=== PATIENT | female | born 1955 | race Caucasian/White ===

== ENCOUNTER 2020-03-07 10:45 | Outpatient (CLI) | payer MEDICARE, MEDICAID, SELFPAY ==
--- NOTE | ~2020-03-07 | US_ITS ---
EXAMINATION: US renal BI EXAM DATE: 03/07/2020 11:52 INDICATION: Urinary retention. TECHNIQUE: Multiple grayscale and Doppler images of the kidneys were obtained (by a technologist who performed the scan) and subsequently reviewed. There is no prior study for comparison. FINDINGS: Right kidney: There is normal contour and echogenicity. It measures 9.9 x 4.6 x 5.0 centimeters. Th ere are no focal renal lesions identified. There is no hydronephrosis. Left kidney: There is normal contour and echogenicity. It measures 9.8 x 4.8 x 5.3 centimeters. The re are no focal renal lesions identified. There is no hydronephrosis. Bladder unremarkable. Prevoid bladder volume 199 mL, postvoid bladder volume 35 mL. IMPRESSION: 1. Sonographically unremarkable kidneys. 2. 35 mL postvoid residual. Reviewed, dictated and finalized at location B.
== END 2020-03-07 10:46 | disposition home or self-care (01) ==
PROVIDERS: PCP Physician Assistant; Visit Provider Internal Medicine Nephrology
DX: R33.9 Retention of urine, unspecified (principal)
CPT/HCPCS: 76775

== ENCOUNTER 2020-03-08 10:09 | Outpatient (CLI) | payer MEDICARE, MEDICAID, SELFPAY ==
[2020-03-08 10:53] LABS: Basophils Absolute Auto 0.1 K/mm3 (0.0-0.1); Basophils Percent Auto 0.9 % (0.2-1.2); Eosinophils Absolute Auto 0.2 K/mm3 (0-0.3); Eosinophils Percent Auto 2.9 % (0-4.4); Hematocrit 41.5 % (37.0-47.0); Hemoglobin 13.2 g/dL (12.0-15.0); Immature Granulocyte Absolute 0.01 K/mm3 (0.00-0.031); Immature Granulocyte Percent A 0.2 % (0-0.5); Lymphocytes Percent Auto 18.4 % (18.3-44.2); Mean Corpuscular HGB Conc 31.8 g/dl (32-36); Mean Corpuscular Hemoglobin 30.1 pg (26-34); Mean Corpuscular Volume 94.5 fl (80-100); Mean Platelet Volume 10.5 fl (7.4-10.4); Monocytes Absolute Auto 0.5 K/mm3 (0.1-0.6); Monocytes Percent Auto 9.9 % (2.6-8.5); Neutrophils Absolute Auto 3.7 K/mm3 (1.3-6.7); Neutrophils Percent Auto 67.7 % (45.5-73.1); Platelet Count Result 183 k/mm3 (150-375); Red Blood Count 4.39 M/mm3 (4.2-5.4); Red Cell Distribution Width 12.7 % (11.5-14.5); White Blood Count 5.4 K/mm3 (4.5-10.0)
[2020-03-08 11:06] LABS: Albumin Level 4.3 g/dL (3.5-5.1); Anion Gap 5 mmol/L (8-16); Blood Urea Nitrogen 26 mg/dL (7-17); Calcium 9.4 mg/dL (8.4-10.2); Carbon Dioxide 29 mmol/L (22-30); Chloride 107 mmol/L (98-107); Estimated Glomerular Filt Rate 45; Glucose 149 mg/dL (65-105); Phosphorus 3.7 mg/dL (2.5-4.5); Potassium 4.3 mmol/L (3.4-5.0); Sodium 141 mmol/L (137-145)
[2020-03-08 11:12] LABS: INR 1.1
[2020-03-08 11:23] LABS: Add Urine Microscopic? YES; Appearance Urine Clear (Clear); Bilirubin Urine Negative (Negative); Blood Urine Negative (Negative); Color Urine Yellow (Yellow); Glucose Urine UA Negative (Negative); Ketones Urine Negative (Negative); Leukocyte Esterase Ur 1+ LEU/UL (NEGATIVE); Nitrate Urine Negative (Negative); Protein Urine Negative (Negative); RBC Urine 0-2 /hpf (0-2); Specific Grav Ur 1.014 (1.001-1.035); Squamous Epithelial Cell Urine Many /hpf (Few); Transitional Epi Cells Urine Rare /hpf (None Seen); Urobilinogen Urine Negative mg/dL (<2.0)
[2020-03-08 11:50] LABS: Creatinine Urine 79.7 mg/dL
[2020-03-08 11:53] LABS: MALB Creatinine Ratio 30.1 mg/g (0-30)
[2020-03-09 18:26] LABS: Parathyroid Intact 119.8 pg/mL (7.5-53.5)
== END 2020-03-08 10:10 | disposition home or self-care (01) ==
PROVIDERS: PCP Physician Assistant; Visit Provider Internal Medicine Nephrology
DX: N18.9 Chronic kidney disease, unspecified (principal)
CPT/HCPCS: 36415; 80069; 81001; 82043; 83970; 85025; 85610

== ENCOUNTER 2020-09-26 10:39 | Outpatient (CLI) | payer MEDICARE, MEDICAID, SELFPAY ==
--- NOTE | ~2020-09-26 | XR_ITS ---
EXAMINATION: XR knee RT 3V DATE: 09/26/2020 12:04 INDICATION: Right knee swelling. TECHNIQUE: 3 views of right knee were obtained. COMPARISON: Right knee radiographs 04/20/2019 FINDINGS: Bone alignment is normal. No fracture. There is mild tricompartmental osteoarthritis charac terized by tiny marginal osteophytes. No knee joint effusion. IMPRESSION: 1. Mild right knee osteoarthritis. Reviewed, dictated and finalized at location A. 400 ANALYST
--- NOTE | ~2020-09-26 | XR_ITS ---
EXAMINATION: XR knee LT 3V DATE: 09/26/2020 12:04 INDICATION: Left knee swelling. TECHNIQUE: 3 views of left knee were obtained. COMPARISON: None. FINDINGS: Bone alignment is normal. No fracture. There is mild tricompartmental osteoarthritis charac terized by tiny marginal osteophytes. There is a small knee joint effusion. IMPRESSION: 1. Mild left knee osteoarthritis. 2. Small left knee joint effusion. Reviewed, dictated and finalized at location A. ESTATE VALUER
[2020-09-26 11:30] LABS: Basophils Percent Auto 0.3 % (0.2-1.2); Eosinophils Absolute Auto 1.6 K/mm3 (0-0.3); Eosinophils Percent Auto 13.3 % (0-4.4); Hematocrit 40.3 % (37.0-47.0); Hemoglobin 12.8 g/dL (12.0-15.0); Immature Granulocyte Absolute 0.06 K/mm3 (0.00-0.031); Immature Granulocyte Percent A 0.5 % (0-0.5); Lymphocytes Absolute Auto 1.65 K/mm3 (0.9-3.2); Mean Corpuscular HGB Conc 31.8 g/dl (32-36); Mean Corpuscular Hemoglobin 30.8 pg (26-34); Mean Corpuscular Volume 96.9 fl (80-100); Mean Platelet Volume 11.1 fl (7.4-10.4); Monocytes Percent Auto 8.7 % (2.6-8.5); Neutrophils Absolute Auto 7.4 K/mm3 (1.3-6.7); Neutrophils Percent Auto 63.2 % (45.5-73.1); Platelet Count Result 162 k/mm3 (150-375); Red Blood Count 4.16 M/mm3 (4.2-5.4); Red Cell Distribution Width 13.2 % (11.5-14.5); White Blood Count 11.8 K/mm3 (4.5-10.0)
[2020-09-26 11:44] LABS: Albumin Level 3.9 g/dL (3.5-5.1); Anion Gap 6 mmol/L (8-16); Blood Urea Nitrogen 16 mg/dL (7-17); Calcium 9.5 mg/dL (8.4-10.2); Carbon Dioxide 28 mmol/L (22-30); Chloride 109 mmol/L (98-107); Estimated Glomerular Filt Rate 41; Glucose 198 mg/dL (65-105); Phosphorus 3.5 mg/dL (2.5-4.5); Potassium 3.9 mmol/L (3.4-5.0); Sodium 143 mmol/L (137-145)
[2020-09-26 13:02] LABS: Creatinine Urine 499.1 mg/dL; MALB Creatinine Ratio 176.9 mg/g (0-30)
[2020-09-26 16:03] LABS: Appearance Urine Clear (Clear); Bilirubin Urine 2+ (Negative); Color Urine Yellow (Yellow); Glucose Urine UA Negative (Negative); Ketones Urine 1+ mg/dL (Negative); Leukocyte Esterase Ur 1+ LEU/UL (NEGATIVE); Nitrate Urine Negative (Negative); Protein Urine 3+ mg/dL (Negative); Specific Grav Ur >= 1.030 (1.001-1.035); Urobilinogen Urine 0.2 mg/dL (<2.0); pH Urine 5.5 (5.0-9.0)
[2020-09-26 16:10] LABS: Add Urine Microscopic? YES; Blood Urine Trace (Negative)
== END 2020-09-26 10:40 | disposition home or self-care (01) ==
PROVIDERS: PCP Physician Assistant; Visit Provider Internal Medicine Nephrology
DX: N25.81 Secondary hyperparathyroidism of renal origin (principal); I12.9 Hypertensive chronic kidney disease with stage 1 through stage 4 chronic kidney disease, or unspecified chronic kidney disease; N18.9 Chronic kidney disease, unspecified; M17.0 Bilateral primary osteoarthritis of knee; M25.462 Effusion, left knee
CPT/HCPCS: 36415; 73562; 80069; 81001; 82043; 85025

== ENCOUNTER 2021-08-05 09:59 | Outpatient (CLI) | payer OTHER, SELFPAY ==
[2021-08-05 10:45] LABS: Albumin Level 4.2 g/dL (3.5-5.1); Anion Gap 8 mmol/L (8-16); Blood Urea Nitrogen 16 mg/dL (7-17); Calcium 9.5 mg/dL (8.4-10.2); Carbon Dioxide 26 mmol/L (22-30); Chloride 106 mmol/L (98-107); Estimated Glomerular Filt Rate 45; Glucose 179 mg/dL (65-110); Phosphorus 3.5 mg/dL (2.5-4.5); Sodium 140 mmol/L (137-145)
[2021-08-05 10:50] LABS: Basophils Percent Auto 0.7 % (0.2-1.2); Eosinophils Absolute Auto 0.4 K/mm3 (0-0.3); Eosinophils Percent Auto 6.9 % (0-4.4); Hematocrit 44.7 % (37.0-47.0); Immature Granulocyte Absolute 0.01 K/mm3 (0.00-0.031); Immature Granulocyte Percent A 0.2 % (0-0.5); Lymphocytes Absolute Auto 1.17 K/mm3 (0.9-3.2); Lymphocytes Percent Auto 19.3 % (18.3-44.2); Mean Corpuscular HGB Conc 31.3 g/dl (32-36); Mean Corpuscular Hemoglobin 30.3 pg (26-34); Mean Corpuscular Volume 96.8 fl (80-100); Mean Platelet Volume 11.9 fl (7.4-10.4); Monocytes Absolute Auto 0.7 K/mm3 (0.1-0.6); Monocytes Percent Auto 11.1 % (2.6-8.5); Neutrophils Absolute Auto 3.7 K/mm3 (1.3-6.7); Neutrophils Percent Auto 61.8 % (45.5-73.1); Platelet Count Result 163 k/mm3 (150-375); Red Blood Count 4.62 M/mm3 (4.2-5.4); White Blood Count 6.1 K/mm3 (4.5-10.0)
== END 2021-08-05 10:00 | disposition home or self-care (01) ==
PROVIDERS: PCP Physician Assistant; Visit Provider Internal Medicine Nephrology
DX: N25.81 Secondary hyperparathyroidism of renal origin (principal); I12.9 Hypertensive chronic kidney disease with stage 1 through stage 4 chronic kidney disease, or unspecified chronic kidney disease; N18.9 Chronic kidney disease, unspecified; N39.0 Urinary tract infection, site not specified
CPT/HCPCS: 36415; 80069; 85025

== ENCOUNTER 2021-08-06 10:21 | Outpatient (CLI) | payer OTHER, SELFPAY ==
[2021-08-06 11:03] LABS: Add Urine Microscopic? YES; Appearance Urine Clear (Clear); Bilirubin Urine Negative (Negative); Blood Urine Negative (Negative); Color Urine Yellow (Yellow); Glucose Urine UA Negative (Negative); Ketones Urine Negative (Negative); Leukocyte Esterase Ur Negative LEU/UL (NEGATIVE); Nitrate Urine Negative (Negative); Protein Urine Negative (Negative); RBC Urine 0-2 /hpf (0-2); Specific Grav Ur 1.013 (1.001-1.035); WBC Urine 0-3 /hpf (0-3)
[2021-08-06 11:59] LABS: Creatinine Urine 81.1 mg/dL
[2021-08-06 12:04] LABS: MALB Creatinine Ratio 16.4 mg/g (0-30); Microalbumin Urine Random 13.3 mg/L (0-16.7)
== END 2021-08-06 10:22 | disposition home or self-care (01) ==
PROVIDERS: PCP Physician Assistant; Visit Provider Internal Medicine Nephrology
DX: I12.9 Hypertensive chronic kidney disease with stage 1 through stage 4 chronic kidney disease, or unspecified chronic kidney disease (principal); N39.0 Urinary tract infection, site not specified; N18.9 Chronic kidney disease, unspecified; N25.81 Secondary hyperparathyroidism of renal origin
CPT/HCPCS: 81001; 82043; 87086

== ENCOUNTER 2022-07-07 12:31 | Emergency (ER) | payer OTHER, SELFPAY ==
--- NOTE | ~2022-07-07 | CT_ITS ---
EXAMINATION: CT brain wo con DATE: 07/07/2022 13:24 INDICATION: Head injury. TECHNIQUE: Computed tomography (CT) of the head was performed without intravenous contrast. The mA wa s adjusted according to patient size. Iterative reconstruction technique was employed. The dose-lengt h product was 605.33 mGy-cm. COMPARISON: Head CT 08/27/2017 FINDINGS: There is an old infarct in right temporal parietal region. There is an old lacunar infarct in right basal ganglia. There is chronic cystic encephalomalacia in the left frontal lobe deep white matter. There is no intracranial hemorrhage, acute infarction, or abnormal intracranial mass lesion. There are scattered areas of low attenuation in the cerebral white matter. There is ex vacuo dilatati on of trigone of right lateral ventricle. The orbits are normal. There is mild mucosal thickening in the ethmoid sinuses. The mastoid air cells are normal. IMPRESSION: 1. Old infarcts involving the right temporal parietal region, left frontal lobe deep white matter, an d right basal ganglia. 2. Mild nonspecific cerebral white matter disease, which likely represents chronic small vessel ische avis disease. Reviewed, dictated and finalized at location A. OR SUPPLY CHAIN ANALYST IMPRESSION: 1. Old infarcts involving the right temporal parietal region, left frontal lobe deep white matter, and right basal ganglia. 2. Mild nonspecific cerebral white matter disease, which likely represents book store associate jamie small vessel ischemic disease.
--- NOTE | ~2022-07-07 | XR_ITS ---
EXAMINATION: XR humerus LT DATE: 07/07/2022 13:35 INDICATION: Left shoulder pain. Fall. TECHNIQUE: 2 views of left humerus were obtained. COMPARISON: None. FINDINGS: There is a comminuted fracture of proximal diaphysis of left humerus. The main distal fract ure fragment demonstrates one shaft width posterior displacement, 13 degrees posterior angulation, an d one half shaft width radial displacement. There is mild glenohumeral joint osteoarthritis. The acro mioclavicular joint is normal. IMPRESSION: 1. Comminuted fracture of proximal left humeral diaphysis. Reviewed, dictated and finalized at location A. TRY SLAUGHTERER
--- NOTE | ~2022-07-07 | CT_ITS ---
EXAMINATION: CT cervical spine wo con DATE: 07/07/2022 13:25 INDICATION: Fall with head injury TECHNIQUE: Computed tomography (CT) of the cervical spine was performed without intravenous contrast. Automated exposure control and iterative reconstruction technique were employed. The dose-length pro duct was 552.16 mGy-cm. COMPARISON: 10/12/2012 FINDINGS: Straightening of the normal cervical lordosis. 2 mm anterolisthesis C3 on C4. One-2 mm retrolisthesis C4 on C5. Vertebral body heights are normal. No fracture. Mild to moderate disc height loss at C4-C5 , C5-C6 and C6-C7. Atherosclerotic calcification at the bilateral carotid bulbs. Cervical soft tissue s are otherwise unremarkable. Visualized airway and apices of the lungs are clear. The following disc levels are specifically discussed: C2-C3: The bilateral uncovertebral joints are fused with mild hypertrophic changes. There is also fus ion of the bilateral facet joints. There is no neural foraminal stenosis. There is no central canal s tenosis. C3-C4: There is moderate bilateral uncovertebral joint osteoarthritis. There is mild to moderate left and severe right facet joint osteoarthritis. There is mild right and minimal left neural foraminal s tenosis. There is minimal central canal stenosis. C4-C5: Posterior endplate osteophytes and severe bilateral uncovertebral joint osteoarthritis. There is mild left and moderate right facet joint osteoarthritis. There is mild right and moderate left aburee ral foraminal stenosis. There is mild central canal stenosis. C5-C6: Posterior endplate osteophytes and severe bilateral uncovertebral joint osteoarthritis. There is mild to moderate bilateral facet joint osteoarthritis. There is moderate bilateral neural foramina l stenosis. There is mild central canal stenosis. C6-C7: There is severe left and mild right uncovertebral joint osteoarthritis. There is moderate righ t and severe left facet joint osteoarthritis. There is mild left neural foraminal stenosis. There is no central canal stenosis. C7-T1: There is no uncovertebral joint osteoarthritis. There is severe bilateral facet joint osteoart hritis. There is mild right and mild to moderate left neural foraminal stenosis. There is no central canal stenosis. IMPRESSION: 1. Moderate to severe cervical spondylosis. No acute osseous abnormality. Reviewed, dictated and finalized at location B. TER BACKER
[2022-07-07 12:37] VITALS: BP 137/83; PULSE 101; RESP 18; TEMP 36.5; O2SAT 98
[2022-07-07 12:52] VITALS: PULSE 112; RESP 19
[2022-07-07 13:01] VITALS: BP 156/109
--- NOTE | 2022-07-07 13:18 | ED.FALL ---
HPI - Fall General Chief Complaint: Fall Stated Complaint: left arm pain after fall Time Seen by Provider: 07/07/22 12:57 History of Present Illness HPI Narrative: Patient is a 67-year-old female here via EMS for evaluation of left shoulder pain after a fall today. Patient states that she was using her walker around the parking lot when she slipped and fell, striking her head against a car and getting on her left shoulder. Required assistance from EMS to get up. Complaining of severe arm pain and presents in left hand numbness and tingling. She does take a blood thinner medicine. She was in her usual health prior to this fall. No hip pain, leg pain, injuries to abdomen or chest. Related Data Allergies Allergy/AdvReac Type Severity Reaction Status Date / Time No Known Allergies Allergy Unknown Unverified 04/20/19 17:42 Review of Systems Review of Systems: Gen.: Denies fevers or chills Eyes: Denies eye pain or visual change ENT: Denies congestion Respiratory: Denies shortness of breath or cough CV: Denies chest pain or palpitations GI: Denies abdominal pain nausea, emesis or diarrhea denies burning, urgency, frequency or hematuria Musculoskeletal: Reports left shoulder and arm pain. Neuro: Denies numbness, tingling, weakness or focal weakness Skin: Denies rash Except as documented, all other systems reviewed and negative Exam Narrative: APPEARANCE: Well appearing, no pain in distress, well-nourished. Head: Normocephalic and atraumatic. EYES: PERRLA/EOMI, conjunctivae clear NOSE: No nasal drainage EARS: External ear normal in appearance THROAT: Oropharynx is clear. Mucous membranes are moist. NECK: Supple. No adenopathy, no masses. RESPIRATORY: Airway patent, respirations nonlabored. Clear to auscultation bilaterally, no rales, rhonchi, wheezing. CARDIOVASCULAR: 2+ radial pulses bilaterally. Regular rate and rhythm without murmurs, rubs, or gallops. ABDOMINAL: Normoactive bowel sounds. Soft, nontender, nondistended. No rebound tenderness or guarding. MUSCULOSKELETAL: Patient has tenderness to palpation over the left humeral head and left olecranon. Deformity noted to left shoulder. Extremities are warm and well-perfused. NEURO: Normal speech. No focal neurologic deficits. SKIN: Skin is warm and dry. No rashes. PSYCHIATRIC: Angry mood Course Vital Signs Vital signs: Vital Signs Temperature 97.7 F 07/07/22 12:37 Pulse Rate 101 H 07/07/22 12:37 Respiratory Rate 18 07/07/22 12:37 Blood Pressure 137/83 07/07/22 12:37 Pulse Oximetry 98 07/07/22 12:37 Oxygen Delivery Room Air 07/07/22 12:37 Temperature 97.7 F 07/07/22 12:37 Pulse Rate 112 H 07/07/22 12:52 Respiratory Rate 19 07/07/22 12:52 Blood Pressure 156/109 H 07/07/22 13:01 Pulse Oximetry 98 07/07/22 12:37 Oxygen Delivery Room Air 07/07/22 12:37 MDM - Fall MDM Narrative Medical decision making narrative: 67-year-old female here for evaluation after mechanical fall in the parking lot earlier today, complaining of shoulder pain. She did strike her head in the fall, she is on blood thinners and CT brain and C-spine are without acute disease. She does have an evidence of a proximal comminuted humerus fracture with 100% displacement. Spoke with Dr. Trinh, orthopedist, who recommends transfer given severity of fracture. Patient ambulates with a walker and will likely not do well with splint as an outpatient. She was transferred to [facility], accepting physician is Dr. Holloway. Discharge Plan Discharge Clinical Impression: Fracture of proximal end of left humerus Patient Disposition: Acute Care Hospital Condition: Stable Follow-up/Referrals: Bao,ZURI Marino [Primary Care Provider] -
[2022-07-07] MEDS: MORPHINE SULFATE (*CRX) 4 MG/ML INJ IV PUSH (14:02)
--- NOTE | 2022-07-07 15:26 | PC.NURSE ---
Splint applied to left arm. Pt maintain circulation with splint applied
== END 2022-07-07 15:27 | disposition short-term general hospital (02) ==
PROVIDERS: Emergency Provider Physician Assistant; PCP Physician Assistant
DX: S49.092A Other physeal fracture of upper end of humerus, left arm, initial encounter for closed fracture (principal); M47.812 Spondylosis without myelopathy or radiculopathy, cervical region; W01.198A Fall on same level from slipping, tripping and stumbling with subsequent striking against other object, initial encounter
CPT/HCPCS: 29105; 70450; 72125; 73060; 96374; 99285; A4565; J2270

== ENCOUNTER 2024-04-25 09:01 | Emergency (ER) | payer MEDICARE, MEDICAID, SELFPAY ==
--- NOTE | ~2024-04-25 | CT_ITS ---
CT head without contrast Indication: Seizure COMPARISON: 07/07/2022 Technique: Serial scans were obtained through the brain without the administration of contrast. Dose reduction technique was used on this scan by utilizing automated exposure control and iterative recon struction technique. The dose-length product (DLP) was 681.00 mGy-cm. Findings: There is no evidence of intracranial hemorrhage, mass lesion, or acute infarct. Stable chrome plater jamie encephalomalacia at the right temporoparietal region. The ventricles and subarachnoid spaces are dilated, consistent with mild atrophy. Low attenuation regions are seen within the periventricular w roger matter bilaterally, likely representing changes from chronic microvascular ischemic disease. The re is no evidence of edema, mass effect or midline shift. The visualized paranasal sinuses and mast oid air cells are clear. Impression: No intracranial hemorrhage, mass, or acute infarct. Chronic encephalomalacia right temporoparietal region, unchanged. Atrophy and chronic white matter changes, as above. Reviewed, dictated and finalized at location . Impression: No intracranial hemorrhage, mass, or acute infarct. Chronic encephalomalacia right temporoparietal region, unchanged. Atrophy and chronic white matter changes, as above.
[2024-04-25 09:08] VITALS: PULSE 78; O2SAT 100
[2024-04-25 09:14] VITALS: BP 156/89; PULSE 77; RESP 16; TEMP 36.8; O2SAT 100
[2024-04-25 09:25] LABS: Glucose Point of Care 176 mg/dl (65-105)
[2024-04-25 09:30] LABS: Basophils Percent Auto 0.7 % (0.2-1.2); Eosinophils Absolute Auto 0.1 K/mm3 (0-0.3); Eosinophils Percent Auto 1.3 % (0-4.4); Hematocrit 44.3 % (37.0-47.0); Immature Granulocyte Absolute 0.01 K/mm3 (0.00-0.031); Immature Granulocyte Percent A 0.2 % (0-0.5); Lymphocytes Absolute Auto 1.02 K/mm3 (0.9-3.2); Lymphocytes Percent Auto 16.8 % (18.3-44.2); Mean Corpuscular HGB Conc 31.6 g/dl (32-36); Mean Corpuscular Hemoglobin 30.4 pg (26-34); Mean Corpuscular Volume 96.1 fl (80-100); Mean Platelet Volume 11.3 fl (7.4-10.4); Monocytes Absolute Auto 0.5 K/mm3 (0.1-0.6); Monocytes Percent Auto 8.7 % (2.6-8.5); Neutrophils Absolute Auto 4.4 K/mm3 (1.3-6.7); Neutrophils Percent Auto 72.3 % (45.5-73.1); Platelet Count Result 223 k/mm3 (150-375); Red Blood Count 4.61 M/mm3 (4.2-5.4); Red Cell Distribution Width 13.2 % (11.5-14.5); White Blood Count 6.1 K/mm3 (4.5-10.0)
[2024-04-25 09:42] LABS: Lactic Acid Reflex 1.1 mmol/L (0.7-2.0)
[2024-04-25 09:43] LABS: Alanine Aminotransferase 25 U/L (6-35); Albumin Level 4.6 g/dL (3.5-5.1); Alkaline Phosphatase 62 U/L (38-126); Anion Gap 9 mmol/L (4-12); Aspartate Amino Transferase 44 U/L (14-36); Bilirubin,Total 1.1 mg/dL (0.2-1.3); Blood Urea Nitrogen 20 mg/dL (7-17); Calcium 9.9 mg/dL (8.4-10.2); Carbon Dioxide 25 mmol/L (22-30); Chloride 110 mmol/L (98-107); Estimated CRCL calculation 45 ml/min; Estimated Glomerular Filt Rate 44; Glucose 183 mg/dL (65-110); Potassium 3.6 mmol/L (3.4-5.0); Sodium 144 mmol/L (137-145)
[2024-04-25 09:45] LABS: Prothrombin Time 13.5 Seconds (11.1-14.7)
[2024-04-25 09:46] LABS: Partial Thromboplastin Time 23.9 Seconds (22.3-36.8)
[2024-04-25 10:00] LABS: Add Urine Microscopic? YES; Appearance Urine Clear (Clear); Bacteria Urine None Seen /hpf; Bilirubin Urine Negative (Negative); Blood Urine Negative (Negative); Color Urine Yellow (Yellow); Glucose Urine UA 3+ mg/dL (Negative); Ketones Urine Negative (Negative); Leukocyte Esterase Ur Trace LEU/UL (Negative); Nitrate Urine Negative (Negative); Non Pathogenic Casts 0-2; Protein Urine Negative (Negative); RBC Urine 0-2 /hpf (0-2); Specific Grav Ur 1.026 (1.001-1.035); Squamous Epithelial Cell Urine None Seen /hpf (Few); pH Urine 6.5 (5.0-9.0)
[2024-04-25 10:06] LABS: Influenza A QL RT-PCR Negative (Negative); Influenza B QL RT-PCR Negative (Negative); RSV RNA, RT-PCR Negative (Negative); SARS-CoV-2 RNA PCR Negative (Negative)
--- NOTE | 2024-04-25 10:25 | ECG_ITS ---
Test Date: 2024-04-25 11:22:12 Measurements Intervals [place] Rate: 77 P: 72 GA: 241 QRS: -19 QRSD: 111 T: -2 QT: 392 QTc: 446 Interpretive Statements SINUS RHYTHM WITH FIRST DEGREE AV BLOCK WITH OCCASIONAL SUPRAVENTRICULAR PREMATURE COMPLEXES POSSIBLE ANTERIOR MYOCARDIAL INFARCTION , OF INDETERMINATE AGE [30 ms Q WAVE IN V3/V4, OR R < 0.2 mV IN V4] ABNORMAL ECG No previous ECG available for comparison Electronically Signed On 04-25-2024 14:42:00 CDT by Jefry Perez M.D.
--- NOTE | 2024-04-25 10:32 | ED.GENADULT ---
HPI - General Adult General Chief complaint: Seizure Stated complaint: seizure Time Seen by Provider: 04/25/24 09:07 History of Present Illness HPI narrative: 69-year-old female presenting to the emergency department for evaluation after having an episode of partial seizures. Patient does have a history of seizure and does have follow-up with Neurology. Patient has been having frequent urinary tract infections with increased confusion. Patient had follow-up with her neurologist today in [facility] and they felt some of the confusion was also due to Topamax intoxication. They are stopping the Topamax but this has not been stopped yet. While patient was riding back from the neurology office patient began having a partial seizure of the right hand. Symptoms lasted approximately 5 minutes and did resolve completely. Upon arrival back to the emergency department patient is at her baseline. Patient denies any pain or injury in is at her typical baseline. Related Data Allergies Allergy/AdvReac Type Severity Reaction Status Date / Time No Known Allergies Allergy Unknown Unverified 04/20/19 17:42 Review of Systems Review of Systems: All systems reviewed & are unremarkable except as noted in HPI and below PMFSH Social History Social History Smoking status: Never smoker Second hand tobacco smoke exposure: No Alcohol intake: unknown Substance use: unknown Spiritual care concerns: No Exam Narrative: APPEARANCE: Well appearing, no pain, no distress, well-nourished. HEAD: normocephalic, atraumatic. EYES: PERRLA/EOMI, conjunctivae clear. NOSE: Normal no drainage EARS:TMS clear with good light reflex. THROAT: Pharynx clear, no exudate. NECK: Supple. No adenopathy, no masses. RESPIRATORY: Airway patent, respirations nonlabored. Clear to auscultation bilaterally, no rales, rhonchi, wheezing. CARDIOVASCULAR: Regular rate and rhythm without murmurs rubs or gallops. ABDOMINAL: Soft, nontender, nondistended, normal bowel sounds MUSCULOSKELETAL: Moves all extremities. Strength/ROM intact, No edema, No calf tenderness. NEURO: Alert. Cranial nerves II through XII intact. Good gait. Good coordination SKIN: Warm, dry. Normal Color Course Course Emergency Course: Patient was at her baseline was discharged home while being treated for urinary tract infection. Vital Signs Vital signs: Vital Signs Pulse Rate 78 04/25/24 09:08 Pulse Oximetry 100 04/25/24 09:08 Oxygen Delivery Room Air 04/25/24 09:08 Temperature 98.2 F 04/25/24 09:14 Pulse Rate 81 04/25/24 12:11 Respiratory Rate 20 04/25/24 12:11 Blood Pressure 148/65 H 04/25/24 12:11 Pulse Oximetry 97 04/25/24 12:11 Oxygen Delivery Room Air 04/25/24 09:14 Medical Decision Making MDM Narrative Medical decision making narrative: 69-year-old female presenting to the emergency department for evaluation for partial seizure. Head CT was negative for acute intracranial abnormality. It was concerning for infection. Patient is afebrile with no leukocytosis and hemoglobin of 14. Creatinine is similar to her baseline of 1.2. No elevation of lactic acid. Urine culture was ordered and patient was treated with IV antibiotics for the urinary tract infection. Patient family are comfortable the plan for being discharged home. They will have close follow-up with their neurologist. They are going to confer about stopping the Topamax after having the recent breakthrough seizure. Differential Diagnosis Differential Diagnosis: Subdural hematoma, subarachnoid hemorrhage, seizure, partial seizure Vital Signs Vital Signs: Vital Signs Pulse Rate 78 04/25/24 09:08 Pulse Oximetry 100 04/25/24 09:08 Oxygen Delivery Room Air 04/25/24 09:08 Temperature 98.2 F 04/25/24 09:14 Pulse Rate 81 04/25/24 12:11 Respiratory Rate 20 04/25/24 12:11 Blood Pressure 148/65 H 04/25/24 12:11 Pulse
[2024-04-25 12:11] VITALS: BP 148/65; PULSE 81; RESP 20; O2SAT 97
== END 2024-04-25 12:13 ==
PROVIDERS: Emergency Provider Emergency Medicine; PCP Physician Assistant
DX: G40.909 Epilepsy, unspecified, not intractable, without status epilepticus (principal); N39.0 Urinary tract infection, site not specified; Z20.822 Contact with and (suspected) exposure to COVID-19; G93.89 Other specified disorders of brain; I44.0 Atrioventricular block, first degree; I49.1 Atrial premature depolarization; R94.31 Abnormal electrocardiogram [ECG] [EKG]
CPT/HCPCS: 36415; 70450; 80053; 81001; 82948; 83605; 85025; 85610; 85730; 87086; 87637; 93005; 96365; 99284; J0696

== ENCOUNTER 2024-05-02 14:22 | Inpatient (IN) | payer MEDICARE, MEDICAID, SELFPAY ==
[2024-05-02 14:20] VITALS: BP 166/81; PULSE 75; RESP 19; TEMP 36.4; O2SAT 100
--- NOTE | 2024-05-02 14:27 | ED.GENADULT ---
HPI - General Adult General Chief complaint: Unspecified Stated complaint: eval for placement Time Seen by Provider: 05/02/24 14:27 Source: patient and EMS Mode of arrival: EMS Limitations: dementia History of Present Illness HPI narrative: This is a 69-year-old female patient past medical history includes diabetes treatment with both insulin and noninsulin anti diabetic medications, hyperlipidemia, metabolic encephalopathy, seizures, CKD, CVA history, history of anemia and hypertension. Patient had prior admission to [facility] where she was discharged to [facility] for SNF and was discharged home with home health 3 days ago. Patient reportedly non compliant with her medications and fighting with the daughter regarding taking her insulin. The daughter called 911 and told EMS that she needed to go into a care home that the daughter would not answer the phone or come pick her up from the hospital. Patient denies any current complaints. Patient notes that she is on an antibiotic for a UTI. Patient also notes that several of her medications were recently changed but she acknowledges that she needs assistance with her medications and is unable to administer them safely to herself. Related Data Allergies Allergy/AdvReac Type Severity Reaction Status Date / Time No Known Allergies Allergy Unknown Unverified 04/20/19 17:42 Review of Systems Review of Systems: Denies fever chills nausea vomiting constipation diarrhea chest pain shortness a breath or any other concerning symptoms at this time All systems reviewed & are unremarkable except as noted in HPI and below PMFSH Social History Social History Smoking status: Never smoker Second hand tobacco smoke exposure: No Alcohol intake: unknown Substance use: unknown Spiritual care concerns: No Exam Narrative: GENERAL: Awake, alert, no acute distress HEAD: Normocephalic, atraumatic. ENT:? Mucous membranes dry. CHEST: Clear to auscultation.? No respiratory distress. HEART: Regular rate and rhythm. ? Normal peripheral pulses. ABDOMEN: Soft, nontender, nondistended. EXTREMITIES: Normal range of motion. No peripheral edema. SKIN: Warm dry normal color NEURO: Alert and oriented but signs of chronic dementia PSYCH: Normal mood and affect Course Reevaluation(s) Reevaluation #1: On lab re-evaluation patient has LASHONDA GFR down to 37 creatinine 1.4. Also glucose is elevated. Ordered 1 L normal saline bolus then 150 mL/hr for 1 bag for a total of 2 L over 8 hours. Case management notified need for care home placement and is evaluating. Date: 05/02/24 Time: 15:12 Reevaluation #2: All labs back, UA only shows glucose in urine which is appropriate given diabetes and Januvia/Farxiga prescription. She is getting IV fluids and case management reaching out to prior assisted living facility where patient was before to see if they can accept her back direct from ER. Date: 05/02/24 Time: 15:47 Reevaluation #3: Patient desiring to go to assisted living or care home. Case management has been working on this but unable to get patient placed tonight. Case management requesting observation admit to continue process tomorrow. Will contact Hospitalist resolution expert. Date: 05/02/24 Time: 16:50 Vital Signs Vital signs: Vital Signs Temperature 36.4 C 05/02/24 14:20 Pulse Rate 75 05/02/24 14:20 Respiratory Rate 19 05/02/24 14:20 Blood Pressure 166/81 H 05/02/24 14:20 Pulse Oximetry 100 05/02/24 14:20 Oxygen Delivery Room Air 05/02/24 14:20 Temperature 36.4 C 05/02/24 14:20 Pulse Rate 65 05/02/24 17:12 Respiratory Rate 12 05/02/24 17:12 Blood Pressure 152/78 H 05/02/24 17:12 Pulse Oximetry 97 05/02/24 17:12 Oxygen Delivery Room Air 05/02/24 14:20 Medical Decision Making MDM Narrative Medical decision making narrative: Patient sent to ER via EMS from
[2024-05-02 14:47] VITALS: PULSE 70
[2024-05-02 14:47] LABS: Glucose Point of Care 213 mg/dl (65-105)
[2024-05-02 14:58] LABS: Basophils Absolute Auto 0.1 K/mm3 (0.0-0.1); Basophils Percent Auto 0.8 % (0.2-1.2); Eosinophils Absolute Auto 0.1 K/mm3 (0-0.3); Eosinophils Percent Auto 1.6 % (0-4.4); Hematocrit 44.3 % (37.0-47.0); Hemoglobin 14.2 g/dL (12.0-15.0); Immature Granulocyte Absolute 0.02 K/mm3 (0.00-0.031); Immature Granulocyte Percent A 0.3 % (0-0.5); Lymphocytes Absolute Auto 1.03 K/mm3 (0.9-3.2); Lymphocytes Percent Auto 16.1 % (18.3-44.2); Mean Corpuscular HGB Conc 32.1 g/dl (32-36); Mean Corpuscular Hemoglobin 30.7 pg (26-34); Mean Corpuscular Volume 95.7 fl (80-100); Mean Platelet Volume 11.5 fl (7.4-10.4); Monocytes Absolute Auto 0.7 K/mm3 (0.1-0.6); Neutrophils Absolute Auto 4.5 K/mm3 (1.3-6.7); Neutrophils Percent Auto 70.2 % (45.5-73.1); Platelet Count Result 204 k/mm3 (150-375); Red Blood Count 4.63 M/mm3 (4.2-5.4); Red Cell Distribution Width 13.2 % (11.5-14.5); White Blood Count 6.4 K/mm3 (4.5-10.0)
[2024-05-02 15:07] LABS: Alanine Aminotransferase 26 U/L (6-35); Albumin Level 4.1 g/dL (3.5-5.1); Alkaline Phosphatase 56 U/L (38-126); Anion Gap 7 mmol/L (4-12); Aspartate Amino Transferase 39 U/L (14-36); Bilirubin,Total 0.8 mg/dL (0.2-1.3); Blood Urea Nitrogen 28 mg/dL (7-17); Calcium 10.2 mg/dL (8.4-10.2); Carbon Dioxide 26 mmol/L (22-30); Chloride 106 mmol/L (98-107); Estimated CRCL calculation 38 ml/min; Estimated Glomerular Filt Rate 37; Glucose 226 mg/dL (65-110); Potassium 3.9 mmol/L (3.4-5.0); Sodium 139 mmol/L (137-145)
[2024-05-02 15:09] LABS: Ammonia < 9 umol/L (9-30)
[2024-05-02] MEDS: SODIUM CHLORIDE 0.9% IV 1,000 ML 999 ML IV CONT (15:23)
[2024-05-02 15:24] VITALS: BP 141/70; PULSE 63; RESP 11; O2SAT 100
[2024-05-02 15:33] LABS: Add Urine Microscopic? NO; Appearance Urine Clear (Clear); Bilirubin Urine Negative (Negative); Blood Urine Negative (Negative); Color Urine Yellow (Yellow); Glucose Urine UA 3+ mg/dL (Negative); Ketones Urine Negative (Negative); Leukocyte Esterase Ur Negative LEU/UL (Negative); Nitrate Urine Negative (Negative); Protein Urine Negative (Negative); Specific Grav Ur 1.026 (1.001-1.035); Urobilinogen Urine 0.2 mg/dL (<2.0); pH Urine 5.5 (5.0-9.0)
--- NOTE | 2024-05-02 16:54 | PC.NURSE ---
low sodium dinner tray ordered
[2024-05-02] MEDS: SODIUM CHLORIDE 0.9% IV 1,000 ML 150 ML IV CONT (17:11)
[2024-05-02 17:12] VITALS: BP 152/78; PULSE 65; RESP 12; O2SAT 97
--- NOTE | 2024-05-02 17:54 | ED.GENADULT ---
HPI - General Adult General Chief complaint: Unspecified Stated complaint: eval for placement Time Seen by Provider: 05/02/24 14:27 Source: patient and EMS Mode of arrival: EMS Limitations: dementia History of Present Illness HPI narrative: This is a 69-year-old female patient with past medical history of diabetes seizures recent left hand injury was discharged from [facility] on Thursday, 3 days ago to home with home health living with her daughter. EMS brought patient to the emergency department this morning with complaints of combative behavior arguing and fighting against the daughter when trying to give her medications. Patient reports she has had some recent medication changes and cannot manage her own medications. She reports that she is on an antibiotic for UTI. Related Data Allergies Allergy/AdvReac Type Severity Reaction Status Date / Time No Known Allergies Allergy Unknown Unverified 04/20/19 17:42 Review of Systems Review of Systems: All systems reviewed & are unremarkable except as noted in HPI and below PMFSH Social History Social History Smoking status: Never smoker Second hand tobacco smoke exposure: No Alcohol intake: unknown Substance use: unknown Spiritual care concerns: No Exam Narrative: GENERAL: Well-appearing, well-nourished, and in no acute distress. HEAD: Normocephalic, atraumatic. ENT:? Mucous membranes moist. CHEST: Clear to auscultation.? No respiratory distress. HEART: Regular rate and rhythm. ? Normal peripheral pulses. ABDOMEN: Soft, nontender, nondistended. EXTREMITIES: Normal range of motion. No peripheral edema. SKIN: Warm dry normal color NEURO: Alert and oriented With admitted mild confusion regarding medications PSYCH: Normal mood and affect Course Vital Signs Vital signs: Vital Signs Temperature 36.4 C 05/02/24 14:20 Pulse Rate 75 05/02/24 14:20 Respiratory Rate 19 05/02/24 14:20 Blood Pressure 166/81 H 05/02/24 14:20 Pulse Oximetry 100 05/02/24 14:20 Oxygen Delivery Room Air 05/02/24 14:20 Temperature 36.4 C 05/02/24 14:20 Pulse Rate 65 05/02/24 17:12 Respiratory Rate 12 05/02/24 17:12 Blood Pressure 152/78 H 05/02/24 17:12 Pulse Oximetry 97 05/02/24 17:12 Oxygen Delivery Room Air 05/02/24 14:20 Medical Decision Making MDM Narrative Medical decision making narrative: 69-year-old female patient was discharged home from the skilled nursing a not getting along with her daughter not able to administer her own medications to herself. Was patient was sent to the emergency department for evaluation for placement in a skilled nursing or assisted living facility. She has a previous left hand injury of fall and had been undergoing physical therapy but states that she ran out of days so she was sent home on home health. She had previously been at [facility]. Ordered labs which showed a minor LASHONDA creatinine 1.4 and estimated GFR 37. UA without signs of active infection but patient reports being on antibiotics currently. Ordered IV fluid bolus and an additional liter at 150 mL/hr for rehydration. Case management consulted and she was able to reach daughter and prior assisted living facility. Case management unable to complete process of placement and requested patient be admitted for observation and will continue placement process tomorrow. Patient willing to go to a facility. Ordered diabetic and low sodium diet. Spoke to Hospitalist FREELANCE WEB DESIGNER, Leydi Weeks, who agreed to admit patient for PT/OT, placement. Vital Signs Vital Signs: Vital Signs Temperature 36.4 C 05/02/24 14:20 Pulse Rate 75 05/02/24 14:20 Respiratory Rate 19 05/02/24 14:20 Blood Pressure 166/81 H 05/02/24 14:20 Pulse Oximetry 100 05/02/24 14:20 Oxygen Delivery Room Air 05/02/24 14:20 Temperature 36.4 C 05/02/24 14:20 Pulse Rate 65
[2024-05-02 18:28] VITALS: BP 156/90; PULSE 66; RESP 12; TEMP 36.8; O2SAT 99
--- NOTE | 2024-05-02 18:40 | PCCCNOTE ---
Care coordination called to the ED regarding placement of pt. Per EMS pt was living with her daughter for the last few days after being at [facility] for a recent fall and having hand surgery. Pt daughter told EMS that the pt was not going to be able to live with her after discharge due to the pt being combative with her and refusing medications. I spoke with the pt in the room and she was wanting to go back to [facility] in [place], she was there when she had the fall. I contacted [facility], they said they could not do anything without me speaking to the daughter. I left a message for the daughter to call me back. She did call back~[phone]. She was very upset and crying. She feels very guilty for not being able to take care of her mother at home, but she has no help and her mother gets combative with her, accuses her of stealing things, and will not take her medication for her. She stated that her mom was not discharged from [facility] because she was finished with therapy, she took her out at the recommendation of the pt neurologist. She thinks that the pt was getting more confused being there and she had recently been put on Topamax. The neurologist stopped the medication and was hopeful that the pt would be able to do better at home. The daughter said she wants to be apart of her mothers life, but is unable to mentally care for her at home. She was very upset through our entire conversation and is afraid she will be looked down upon for not taking care of her. The pt does not have a POA. If pt can go to rehab, the daughter would like to try [facility], if she can not do that they would like [facility]. If neither of these options are available, she will need [facility] care and neither of them had a preference. Pt daughter is Claudia Mohan, her number is [phone].
--- NOTE | 2024-05-02 19:28 | ADMGEN ---
This patient, Kerline Mohan, was admitted to [facility] Surg Room 304-01. Patient/family oriented to hospital policies and general routines including ID bracelet, bed and alarms, visiting hours, pain management, procedures, bathroom and other care routines, personal items, smoking policy, room service/diet, and visiting hours. Information on how to activate the Rapid Response Team has been discussed. Patient/Family are encouraged to report perceived risks to care and to ask questions if they do not understand what they are told or what they should do. Report from Allie in ER.
[2024-05-02 20:44] LABS: Glucose Point of Care 130 mg/dl (65-105)
--- NOTE | 2024-05-02 21:29 | PM.IMHP ---
H&P: HPI History of Present Illness Date/Time: 05/02/24 21:29 Chief Complaint: LASHONDA Narrative: This is a 69-year-old female with a significant past medical history of diabetes, hyperlipidemia, coronary artery disease, vitamin-D deficiency, vitamin B12 deficiency, CHF, atrial fibrillation, hypertension, GERD, seizure who presented to the hospital via EMS after becoming combative and argumentative at home with daughter. Patient recently sustained a fall with left hand injury and was initially treated at [facility] who discharged her to [facility] for rehab /swing bed program. She completed her rehab time on Thursday and went home with her daughter at that time with home health. Daughter states that she cannot care for her at home due to her combative behavior and that she needs to be placed in a care home as the patient is not able to manage her own medications. Case management was consulted in the ED and plans for care home placement. patient denies any fever, chills, nausea, vomiting, diarrhea, chest pain, shortness a breath. She states that she recently finished antibiotics for urinary tract infection and was having some back pain initially this morning. she recalls having a disagreement with her daughter this morning however she states that she never refused to take her medications at home. Additional workup in the ED included labs which shown a creatinine of 1.40, EGFR 37, blood sugar ranging 213-226, AST 39. A UA was obtained which showed 3+ urine glucose, otherwise unremarkable. Patient was given 1 L of normal saline while in the ED. Review of Systems Review of Systems: All systems reviewed & are unremarkable except as noted in HPI and below Constitutional: Constitutional: Reports as per HPI and Reports no additional constitutional complaints Eyes: Eyes: Reports as per HPI and Reports no additional eye complaints ENT: Reports system reviewed and no additional complaints, except as documented and Reports as per HPI Cardiovascular: Cardiovascular: Reports as per HPI and Reports no additional cardiovascular complaints Respiratory: Respiratory: Reports as per HPI and Reports no additional respiratory complaints Gastrointestinal: Gastrointestinal: Reports as per HPI and Reports no additional gastrointestinal complaints Genitourinary: Genitourinary: Reports no additional female genitourinary complaints and Reports as per HPI Musculoskeletal: Musculoskeletal: Reports no additional musculoskeletal complaints and Reports as per HPI Integumentary/Breasts: Skin/Breast: Reports system reviewed and no additional complaints, except as docu and Reports as per HPI Neurologic: Reports system reviewed and no additional complaints, except as documented and Reports as per HPI Psychiatric: Psychiatric: Reports no additional psychiatric complaints and Reports as per HPI [facility] Past Medical History Medical History Atrial fibrillation CAD (coronary artery disease) Essential hypertension GERD (gastroesophageal reflux disease) History of hemorrhagic cerebrovascular accident (CVA) without residual deficits Hyperlipidemia Seizure disorder Type 2 diabetes mellitus Vitamin B12 deficiency Vitamin D deficiency Social History Social History Smoking status: Never smoker Second hand tobacco smoke exposure: No Alcohol intake: unknown Substance use: unknown Spiritual care concerns: No Meds Home Medications and Allergies Home Medications Medication Instructions Recorded Confirmed Type acetaminophen 325 mg tablet (Mapap 975 mg PO Q6H PRN Pain Rated 1-3 08/22/22 05/02/24 Rx (acetaminophen)) #30 tabs amlodipine 10 mg tablet 10 mg PO QAM #30 tabs 08/22/22 05/02/24 Rx atorvastatin 40 mg tablet 40 mg PO DAILY #30 tabs 08/22/22 05/02/24 Rx levetiracetam 500 mg tablet 750 mg PO Q12HR #60 tabs 08/22/22
[2024-05-02 22:23] VITALS: BP 153/67; PULSE 71; RESP 20; TEMP 36.7; O2SAT 97
[2024-05-03] MEDS: INSULIN GLARGINE (*BKC) 100 UNITS/ML 25 UNITS SUB-Q ×2 (00:01→20:47)
[2024-05-03 05:51] VITALS: BP 147/59; PULSE 69; RESP 20; TEMP 37; O2SAT 98
[2024-05-03 06:46] LABS: Basophils Absolute Auto 0.1 K/mm3 (0.0-0.1); Basophils Percent Auto 1.1 % (0.2-1.2); Eosinophils Absolute Auto 0.1 K/mm3 (0-0.3); Eosinophils Percent Auto 2.4 % (0-4.4); Hematocrit 39.8 % (37.0-47.0); Hemoglobin 12.4 g/dL (12.0-15.0); Immature Granulocyte Absolute 0.01 K/mm3 (0.00-0.031); Immature Granulocyte Percent A 0.2 % (0-0.5); Lymphocytes Absolute Auto 1.23 K/mm3 (0.9-3.2); Lymphocytes Percent Auto 22.5 % (18.3-44.2); Mean Corpuscular HGB Conc 31.2 g/dl (32-36); Mean Corpuscular Volume 96.4 fl (80-100); Mean Platelet Volume 11.5 fl (7.4-10.4); Monocytes Absolute Auto 0.7 K/mm3 (0.1-0.6); Monocytes Percent Auto 13.5 % (2.6-8.5); Neutrophils Absolute Auto 3.3 K/mm3 (1.3-6.7); Neutrophils Percent Auto 60.3 % (45.5-73.1); Platelet Count Result 197 k/mm3 (150-375); Red Blood Count 4.13 M/mm3 (4.2-5.4); Red Cell Distribution Width 13.2 % (11.5-14.5); White Blood Count 5.5 K/mm3 (4.5-10.0)
[2024-05-03 06:57] LABS: Alanine Aminotransferase 22 U/L (6-35); Albumin Level 3.5 g/dL (3.5-5.1); Alkaline Phosphatase 53 U/L (38-126); Anion Gap 7 mmol/L (4-12); Aspartate Amino Transferase 38 U/L (14-36); Bilirubin,Total 0.8 mg/dL (0.2-1.3); Blood Urea Nitrogen 16 mg/dL (7-17); Calcium 9.2 mg/dL (8.4-10.2); Carbon Dioxide 22 mmol/L (22-30); Chloride 110 mmol/L (98-107); Estimated CRCL calculation 58 ml/min; Estimated Glomerular Filt Rate > 60; Glucose 88 mg/dL (65-110); Potassium 3.4 mmol/L (3.4-5.0); Sodium 139 mmol/L (137-145)
[2024-05-03 08:04] LABS: Glucose Point of Care 87 mg/dl (65-105)
[2024-05-03] MEDS: ASPIRIN 81 MG CHEWABLE TABLET PO (08:27)
[2024-05-03] MEDS: LACOSAMIDE (*CRX) 100 MG TABLET PO ×2 (08:27→20:48)
[2024-05-03] MEDS: SERTRALINE HCL 50 MG TABLET 100 MG PO (08:28)
[2024-05-03] MEDS: levETIRAcetam 250 MG TABLET 750 MG PO ×2 (08:29→20:48)
[2024-05-03] MEDS: amLODIPine BESYLATE 10 MG TABLET PO (08:29)
[2024-05-03] MEDS: ATORVASTATIN 40 MG TABLET PO (08:29)
[2024-05-03 08:30] VITALS: PULSE 77
[2024-05-03] MEDS: FENOFIBRATE 160 MG TABLET PO (08:30)
[2024-05-03] MEDS: METOPROLOL TARTRATE 25 MG TABLET PO ×2 (08:30→20:48)
[2024-05-03] MEDS: ENOXAPARIN 40 MG/0.4 ML SYRINGE SUB-Q (08:32)
[2024-05-03 09:03] VITALS: O2SAT 98
[2024-05-03 11:41] LABS: Glucose Point of Care 130 mg/dl (65-105)
--- NOTE | 2024-05-03 11:42 | P.PNIM_ITS ---
Progress Note: A&P Assessment and Plan (1) Acute kidney injury: Code(s): N17.9 - Acute kidney failure, unspecified Status: Acute Assessment and Plan: 05/02/24: * creatinine 1.40, EGFR 37 * baseline creatinine 0.8-0.9, EGFR greater than 60 * patient was given 1 L of normal saline while in the ED * continue to trend 05/03/24: * creatinine 0.90 and back to baseline * Case coordination working on placement * PT and OT ordered (2) Essential hypertension: Code(s): I10 - Essential (primary) hypertension Status: Acute Assessment and Plan: 05/02/24: * blood pressure ranging 141/70 to 166/81 * continue amlodipine and metoprolol 05/02/24: * no change to current treatment plan (3) Seizure disorder: Code(s): G40.909 - Epilepsy, unspecified, not intractable, without status epilepticus Status: Acute Assessment and Plan: 05/02/24: * continue Keppra 05/03/24: * no change to current treatment plan (4) Type 2 diabetes mellitus: Code(s): E11.9 - Type 2 diabetes mellitus without complications Status: Acute Assessment and Plan: 05/02/24: * Blood sugars ranging 213-226 * Hgb A1C 6.5 on 08/11/2022 * will obtain another hemoglobin A1c * Accu checks AC/HS * moderate dose SSI ordered * continue Lantus 25 units at bedtime * will Hold Farxiga and linagliptin * hypoglycemic protocol in place * Diabetic diet ordered 05/03/24: * hemoglobin A1c 6.4 * blood sugars ranging 88-130 * continue with current treatment plan (5) Hyperlipidemia: Code(s): E78.5 - Hyperlipidemia, unspecified Status: Acute Assessment and Plan: 05/02/24: * continue aspirin and atorvastatin 05/03/24: * no change to current treatment plan Time Spent With Patient Time with patient: 15 - 25 minutes Subjective Date/time seen: 05/03/24 11:42 Interval history: Interval history: This is a 69-year-old female with a significant past medical history of diabetes, hyperlipidemia, coronary artery disease, vitamin-D deficiency, vitamin B12 deficiency, CHF, atrial fibrillation, hypertension, GERD, seizure who presented to the hospital via EMS after becoming combative and argumentative at home with daughter. Patient recently sustained a fall with left hand injury and was initially treated at [facility] who discharged her to [facility] for rehab /swing bed program. She completed her rehab time on Thursday and went home with her daughter at that time with home health. Daughter states that she cannot care for her at home due to her combative behavior and that she needs to be placed in a long-term as the patient is not able to manage her own medications. Case management was consulted in the ED and plans for long-term placement. patient denies any fever, chills, nausea, vomiting, diarrhea, chest pain, shortness a breath. She states that she recently finished antibiotics for urinary tract infection and was having some back pain initially this morning. she recalls having a disagreement with her daughter this morning however she states that she never refused to take her medications at home. Additional workup in the ED included labs which shown a creatinine of 1.40, EGFR 37, blood sugar ranging 213-226, AST 39. A UA was obtained which showed 3+ urine glucose, otherwise unremarkable. Patient was given 1 L of normal saline while in the ED. Subjective: Labs reviewed. Patient denies any new complaints today. She is tearful today when talking about her daughter and is worried about a pl
--- NOTE | 2024-05-03 11:42 | PM.IMPN ---
Progress Note: A&P Assessment and Plan (1) Acute kidney injury: Code(s): N17.9 - Acute kidney failure, unspecified Status: Acute Assessment and Plan: 05/02/24: creatinine 1.40, EGFR 37 baseline creatinine 0.8-0.9, EGFR greater than 60 patient was given 1 L of normal saline while in the ED continue to trend 05/03/24: creatinine 0.90 and back to baseline Case coordination working on placement PT and OT ordered (2) Essential hypertension: Code(s): I10 - Essential (primary) hypertension Status: Acute Assessment and Plan: 05/02/24: blood pressure ranging 141/70 to 166/81 continue amlodipine and metoprolol 05/02/24: no change to current treatment plan (3) Seizure disorder: Code(s): G40.909 - Epilepsy, unspecified, not intractable, without status epilepticus Status: Acute Assessment and Plan: 05/02/24: continue Keppra 05/03/24: no change to current treatment plan (4) Type 2 diabetes mellitus: Code(s): E11.9 - Type 2 diabetes mellitus without complications Status: Acute Assessment and Plan: 05/02/24: Blood sugars ranging 213-226 Hgb A1C 6.5 on 08/11/2022 will obtain another hemoglobin A1c Accu checks AC/HS moderate dose SSI ordered continue Lantus 25 units at bedtime will Hold Farxiga and linagliptin hypoglycemic protocol in place Diabetic diet ordered 05/03/24: hemoglobin A1c 6.4 blood sugars ranging 88-130 continue with current treatment plan (5) Hyperlipidemia: Code(s): E78.5 - Hyperlipidemia, unspecified Status: Acute Assessment and Plan: 05/02/24: continue aspirin and atorvastatin 05/03/24: no change to current treatment plan Time Spent With Patient Time with patient: 15 - 25 minutes Subjective Date/time seen: 05/03/24 11:42 Interval history: Interval history: This is a 69-year-old female with a significant past medical history of diabetes, hyperlipidemia, coronary artery disease, vitamin-D deficiency, vitamin B12 deficiency, CHF, atrial fibrillation, hypertension, GERD, seizure who presented to the hospital via EMS after becoming combative and argumentative at home with daughter. Patient recently sustained a fall with left hand injury and was initially treated at [facility] who discharged her to [facility] for rehab /swing bed program. She completed her rehab time on Thursday and went home with her daughter at that time with home health. Daughter states that she cannot care for her at home due to her combative behavior and that she needs to be placed in a m[facility]p as the patient is not able to manage her own medications. Case management was consulted in the ED and plans for m[facility] placement. patient denies any fever, chills, nausea, vomiting, diarrhea, chest pain, shortness a breath. She states that she recently finished antibiotics for urinary tract infection and was having some back pain initially this morning. she recalls having a disagreement with her daughter this morning however she states that she never refused to take her medications at home. Additional workup in the ED included labs which shown a creatinine of 1.40, EGFR 37, blood sugar ranging 213-226, AST 39. A UA was obtained which showed 3+ urine glucose, otherwise unremarkable. Patient was given 1 L of normal saline while in the ED. Subjective: Labs reviewed. Patient denies any new complaints today. She is tearful today when talking about her daughter and is worried about a place to stay upon discharge. Review of Systems Review of Systems: All systems reviewed & are unremarkable except as noted in HPI and below Constitutional: Constitutional: Reports as per HPI and Reports no additional constitutional complaints Eyes: Eyes: Reports as per HPI and Reports no additional eye complaints ENT: Reports system reviewed and no additional complaints, except as do
[2024-05-03 13:37] LABS: Hemoglobin A1C 6.4 % (<5.7)
[2024-05-03 16:00] VITALS: BP 120/45; PULSE 78; RESP 18; TEMP 36.2; O2SAT 93
[2024-05-03 17:00] LABS: Glucose Point of Care 158 mg/dl (65-105)
[2024-05-03 20:24] LABS: Glucose Point of Care 165 mg/dl (65-105)
[2024-05-03 20:48] VITALS: PULSE 78
[2024-05-03 22:21] VITALS: BP 120/49; PULSE 62; RESP 14; TEMP 37.6; O2SAT 99
[2024-05-04] VITALS (9 sets, daily range): BP systolic 114–151; BP diastolic 50–74; PULSE 51–70; RESP 12–18; TEMP 36–36.9; O2SAT 91–100
[2024-05-04 06:19] LABS: Basophils Absolute Auto 0.1 K/mm3 (0.0-0.1); Basophils Percent Auto 0.9 % (0.2-1.2); Eosinophils Absolute Auto 0.1 K/mm3 (0-0.3); Hematocrit 41.3 % (37.0-47.0); Hemoglobin 12.9 g/dL (12.0-15.0); Immature Granulocyte Absolute 0.02 K/mm3 (0.00-0.031); Immature Granulocyte Percent A 0.4 % (0-0.5); Lymphocytes Absolute Auto 1.09 K/mm3 (0.9-3.2); Lymphocytes Percent Auto 19.7 % (18.3-44.2); Mean Corpuscular HGB Conc 31.2 g/dl (32-36); Mean Corpuscular Hemoglobin 30.3 pg (26-34); Mean Corpuscular Volume 96.9 fl (80-100); Mean Platelet Volume 11.7 fl (7.4-10.4); Monocytes Absolute Auto 0.8 K/mm3 (0.1-0.6); Monocytes Percent Auto 13.7 % (2.6-8.5); Neutrophils Absolute Auto 3.5 K/mm3 (1.3-6.7); Neutrophils Percent Auto 63.3 % (45.5-73.1); Platelet Count Result 206 k/mm3 (150-375); Red Blood Count 4.26 M/mm3 (4.2-5.4); Red Cell Distribution Width 13.1 % (11.5-14.5); White Blood Count 5.5 K/mm3 (4.5-10.0)
[2024-05-04 06:30] LABS: Alanine Aminotransferase 22 U/L (6-35); Albumin Level 3.9 g/dL (3.5-5.1); Alkaline Phosphatase 50 U/L (38-126); Anion Gap 7 mmol/L (4-12); Aspartate Amino Transferase 36 U/L (14-36); Bilirubin,Total 0.9 mg/dL (0.2-1.3); Blood Urea Nitrogen 18 mg/dL (7-17); Calcium 9.7 mg/dL (8.4-10.2); Carbon Dioxide 27 mmol/L (22-30); Chloride 108 mmol/L (98-107); Estimated CRCL calculation 52 ml/min; Estimated Glomerular Filt Rate 55; Glucose 101 mg/dL (65-110); Potassium 3.8 mmol/L (3.4-5.0); Sodium 142 mmol/L (137-145)
[2024-05-04 08:06] LABS: Glucose Point of Care 114 mg/dl (65-105)
[2024-05-04] MEDS: levETIRAcetam 250 MG TABLET 750 MG PO ×2 (08:32→20:37)
[2024-05-04] MEDS: ENOXAPARIN 40 MG/0.4 ML SYRINGE SUB-Q (08:33)
[2024-05-04] MEDS: METOPROLOL TARTRATE 25 MG TABLET PO (08:33)
[2024-05-04] MEDS: ATORVASTATIN 40 MG TABLET PO (08:34)
[2024-05-04] MEDS: ASPIRIN 81 MG CHEWABLE TABLET PO (08:34)
[2024-05-04] MEDS: SERTRALINE HCL 50 MG TABLET 100 MG PO (08:34)
[2024-05-04] MEDS: amLODIPine BESYLATE 10 MG TABLET PO (08:34)
[2024-05-04] MEDS: FENOFIBRATE 160 MG TABLET PO (08:36)
[2024-05-04] MEDS: LACOSAMIDE (*CRX) 100 MG TABLET PO ×2 (10:15→20:37)
--- NOTE | 2024-05-04 10:54 | PM.DS ---
DS: Admitting Diagnosis Discharge Date 05/05/24 Admitting Diagnosis LASHONDA Hypertension Seizure disorder Type 2 diabetes mellitus Hyperlipidemia DS: Discharge Diagnosis Discharge Diagnosis (1) Acute kidney injury: Code(s): N17.9 - Acute kidney failure, unspecified Status: Acute (2) Essential hypertension: Code(s): I10 - Essential (primary) hypertension Status: Acute (3) Seizure disorder: Code(s): G40.909 - Epilepsy, unspecified, not intractable, without status epilepticus Status: Acute (4) Type 2 diabetes mellitus: Code(s): E11.9 - Type 2 diabetes mellitus without complications Status: Acute (5) Hyperlipidemia: Code(s): E78.5 - Hyperlipidemia, unspecified Status: Acute DS: Summary Hospital Course Reason for hospitalization: LASHONDA Hypertension Seizure disorder Type 2 diabetes mellitus Hyperlipidemia Hospital Course: This is a 69-year-old female with a significant past medical history of diabetes, hyperlipidemia, coronary artery disease, vitamin-D deficiency, vitamin B12 deficiency, CHF, atrial fibrillation, hypertension, GERD, seizure who presented to the hospital via EMS after becoming combative and argumentative at home with daughter. Patient recently sustained a fall with left hand injury and was initially treated at [facility] who discharged her to [facility] for rehab /swing bed program. She completed her rehab time on Thursday and went home with her daughter at that time with home health. Daughter states that she cannot care for her at home due to her combative behavior and that she needs to be placed in a usp as the patient is not able to manage her own medications. Case management was consulted in the ED and plans for usp placement. patient denies any fever, chills, nausea, vomiting, diarrhea, chest pain, shortness a breath. She states that she recently finished antibiotics for urinary tract infection and was having some back pain initially this morning. she recalls having a disagreement with her daughter this morning however she states that she never refused to take her medications at home. Additional workup in the ED included labs which shown a creatinine of 1.40, EGFR 37, blood sugar ranging 213-226, AST 39. A UA was obtained which showed 3+ urine glucose, otherwise unremarkable. Patient was given 1 L of normal saline while in the ED. Patient had an episode of audible and visual hallucinations with aggressive behavior requiring a dose of Zyprexa overnight. She apparently had a similar episode at [facility] as well as another episode at her daughter's house before she was brought in for this admission. At one point they were told that she likely has dementia. Unsure if the episode has to do with dementia versus sundowning versus hospitalized delirium. All are possible. We will defer to her primary care physician for mini mental examination and further work up of underlying dementia. Creatinine increase likely due to dehydration. Patient is stable for discharge to SNF today. VSS, currently on room air, afebrile. Creatinine increased to 1.8 today and was given 500 ml bolus. Repeat creatinine is 1.4. Final diagnosis: Acute kidney injury, Dehydration Status at Discharge Cognitive/behavioral status at discharge: Alert oriented x4 Functional status at discharge: uses cane/walker Overall status at discharge: patient is progressing back to baseline Time Spent with Patient Time attestation: Total time spent providing and/or coordinating discharge services: Time spent: Greater than 30 minutes Exam Narrative: General: In no acute distress, well nourished Cardiac: Normal S1 and S2. Respiratory: Lungs clear to auscultation, no adventitious lung sounds, currently on room air Gastrointestinal: normoactive bowel sounds. : voiding without difficulty. Extremities: moves all extremities well, no edema brace on left
[2024-05-04 12:30] LABS: Glucose Point of Care 166 mg/dl (65-105)
--- NOTE | 2024-05-04 13:32 | P.PNIM_ITS ---
Progress Note: A&P Assessment and Plan (1) Acute kidney injury: Code(s): N17.9 - Acute kidney failure, unspecified Status: Acute Assessment and Plan: 05/02/24: * creatinine 1.40, EGFR 37 * baseline creatinine 0.8-0.9, EGFR greater than 60 * patient was given 1 L of normal saline while in the ED * continue to trend 05/03/24: * creatinine 0.90 and back to baseline * Case coordination working on placement * PT and OT ordered 05/04/24: * OT suggesting skilled OT for atleast 2 weeks * Case coordination working on placement * No change (2) Essential hypertension: Code(s): I10 - Essential (primary) hypertension Status: Acute Assessment and Plan: 05/02/24: * blood pressure ranging 141/70 to 166/81 * continue amlodipine and metoprolol 05/02/24: * no change to current treatment plan (3) Seizure disorder: Code(s): G40.909 - Epilepsy, unspecified, not intractable, without status epilepticus Status: Acute Assessment and Plan: 05/02/24: * continue Keppra 05/03/24: * no change to current treatment plan (4) Type 2 diabetes mellitus: Code(s): E11.9 - Type 2 diabetes mellitus without complications Status: Acute Assessment and Plan: 05/02/24: * Blood sugars ranging 213-226 * Hgb A1C 6.5 on 08/11/2022 * will obtain another hemoglobin A1c * Accu checks AC/HS * moderate dose SSI ordered * continue Lantus 25 units at bedtime * will Hold Farxiga and linagliptin * hypoglycemic protocol in place * Diabetic diet ordered 05/03/24: * hemoglobin A1c 6.4 * blood sugars ranging 88-130 * continue with current treatment plan 05/04/24: * No change to current treatment plan (5) Hyperlipidemia: Code(s): E78.5 - Hyperlipidemia, unspecified Status: Acute Assessment and Plan: 05/02/24: * continue aspirin and atorvastatin 05/03/24: * no change to current treatment plan Subjective Date/time seen: 05/04/24 13:32 Interval history: Interval history: This is a 69-year-old female with a significant past medical history of diabetes, hyperlipidemia, coronary artery disease, vitamin-D deficiency, vitamin B12 deficiency, CHF, atrial fibrillation, hypertension, GERD, seizure who presented to the hospital via EMS after becoming combative and argumentative at home with daughter. Patient recently sustained a fall with left hand injury and was initially treated at [facility] who discharged her to [facility] for rehab /swing bed program. She completed her rehab time on Thursday and went home with her daughter at that time with home health. Daughter states that she cannot care for her at home due to her combative behavior and that she needs to be placed in a fdc as the patient is not able to manage her own medications. Case management was consulted in the ED and plans for fdc placement. patient denies any fever, chills, nausea, vomiting, diarrhea, chest pain, shortness a breath. She states that she recently finished antibiotics for urinary tract infection and was having some back pain initially this morning. she recalls having a disagreement with her daughter this morning however she states that she never refused to take her medications at home. Additional workup in the ED included labs which shown a creatinine of 1.40, EGFR 37, blood sugar ranging 213-226, AST 39. A UA was obtained which showed 3+ urine glucose, otherwise unremarkable. Patient was given 1 L of normal saline while in the ED. Subjective: Labs re
--- NOTE | 2024-05-04 13:32 | PM.IMPN ---
Progress Note: A&P Assessment and Plan (1) Acute kidney injury: Code(s): N17.9 - Acute kidney failure, unspecified Status: Acute Assessment and Plan: 05/02/24: creatinine 1.40, EGFR 37 baseline creatinine 0.8-0.9, EGFR greater than 60 patient was given 1 L of normal saline while in the ED continue to trend 05/03/24: creatinine 0.90 and back to baseline Case coordination working on placement PT and OT ordered 05/04/24: OT suggesting skilled OT for atleast 2 weeks Case coordination working on placement No change (2) Essential hypertension: Code(s): I10 - Essential (primary) hypertension Status: Acute Assessment and Plan: 05/02/24: blood pressure ranging 141/70 to 166/81 continue amlodipine and metoprolol 05/02/24: no change to current treatment plan (3) Seizure disorder: Code(s): G40.909 - Epilepsy, unspecified, not intractable, without status epilepticus Status: Acute Assessment and Plan: 05/02/24: continue Keppra 05/03/24: no change to current treatment plan (4) Type 2 diabetes mellitus: Code(s): E11.9 - Type 2 diabetes mellitus without complications Status: Acute Assessment and Plan: 05/02/24: Blood sugars ranging 213-226 Hgb A1C 6.5 on 08/11/2022 will obtain another hemoglobin A1c Accu checks AC/HS moderate dose SSI ordered continue Lantus 25 units at bedtime will Hold Farxiga and linagliptin hypoglycemic protocol in place Diabetic diet ordered 05/03/24: hemoglobin A1c 6.4 blood sugars ranging 88-130 continue with current treatment plan 05/04/24: No change to current treatment plan (5) Hyperlipidemia: Code(s): E78.5 - Hyperlipidemia, unspecified Status: Acute Assessment and Plan: 05/02/24: continue aspirin and atorvastatin 05/03/24: no change to current treatment plan Subjective Date/time seen: 05/04/24 13:32 Interval history: Interval history: This is a 69-year-old female with a significant past medical history of diabetes, hyperlipidemia, coronary artery disease, vitamin-D deficiency, vitamin B12 deficiency, CHF, atrial fibrillation, hypertension, GERD, seizure who presented to the hospital via EMS after becoming combative and argumentative at home with daughter. Patient recently sustained a fall with left hand injury and was initially treated at [facility] who discharged her to [facility] for rehab /swing bed program. She completed her rehab time on Thursday and went home with her daughter at that time with home health. Daughter states that she cannot care for her at home due to her combative behavior and that she needs to be placed in a mcc as the patient is not able to manage her own medications. Case management was consulted in the ED and plans for mcc placement. patient denies any fever, chills, nausea, vomiting, diarrhea, chest pain, shortness a breath. She states that she recently finished antibiotics for urinary tract infection and was having some back pain initially this morning. she recalls having a disagreement with her daughter this morning however she states that she never refused to take her medications at home. Additional workup in the ED included labs which shown a creatinine of 1.40, EGFR 37, blood sugar ranging 213-226, AST 39. A UA was obtained which showed 3+ urine glucose, otherwise unremarkable. Patient was given 1 L of normal saline while in the ED. Subjective: Labs reviewed. Patient denies any new complaints today. Review of Systems Review of Systems: All systems reviewed & are unremarkable except as noted in HPI and below Constitutional: Constitutional: Reports as per HPI and Reports no additional constitutional complaints Eyes: Eyes: Reports as per HPI and Reports no additional eye complaints ENT: Reports system reviewed and no additional complaints, except as documen
[2024-05-04 16:51] LABS: Glucose Point of Care 182 mg/dl (65-105)
[2024-05-04] MEDS: OLANZapine 10 MG INJ VIAL 5 MG IM (18:52)
--- NOTE | 2024-05-04 18:52 | PC.NURSE ---
RN was unable to get the 15 mins vitals that were needed after giving zyprexa. Pt was very combative and agitated and sitting at bedside.
--- NOTE | 2024-05-04 18:54 | PC.NURSE ---
RN had to call provider because pt was sitting at 304-2 bed upset because she thought she was in danger RN went into room with other RNs to get the pt out of the room but the patient was extremely agitated and yelling at staff. RN did a lap with the pt while other staff took 304-2 out of the room. RN also called Dr. Mclaughlin to get something for the pt since the pt is very angry and was threatening to hit staff for trying to guide her to the room. Security was notified and came to the floor to deescalate the pt and the pt was given Zyprexa 5mg IM. Security is still in the room talking with the patient since she is still agitated.
[2024-05-04] MEDS: INSULIN GLARGINE (*BKC) 100 UNITS/ML 25 UNITS SUB-Q (20:38)
[2024-05-04 20:41] LABS: Glucose Point of Care 193 mg/dl (65-105)
[2024-05-05 06:46] LABS: Basophils Absolute Auto 0.1 K/mm3 (0.0-0.1); Eosinophils Absolute Auto 0.1 K/mm3 (0-0.3); Eosinophils Percent Auto 2.1 % (0-4.4); Hemoglobin 12.3 g/dL (12.0-15.0); Immature Granulocyte Absolute 0.02 K/mm3 (0.00-0.031); Immature Granulocyte Percent A 0.4 % (0-0.5); Lymphocytes Absolute Auto 1.42 K/mm3 (0.9-3.2); Lymphocytes Percent Auto 27.1 % (18.3-44.2); Mean Corpuscular HGB Conc 30.8 g/dl (32-36); Mean Corpuscular Volume 97.6 fl (80-100); Mean Platelet Volume 11.9 fl (7.4-10.4); Monocytes Absolute Auto 0.8 K/mm3 (0.1-0.6); Monocytes Percent Auto 15.3 % (2.6-8.5); Neutrophils Absolute Auto 2.8 K/mm3 (1.3-6.7); Neutrophils Percent Auto 54.1 % (45.5-73.1); Platelet Count Result 198 k/mm3 (150-375); Red Cell Distribution Width 13.2 % (11.5-14.5); White Blood Count 5.2 K/mm3 (4.5-10.0)
[2024-05-05 07:02] LABS: Alanine Aminotransferase 20 U/L (6-35); Albumin Level 3.6 g/dL (3.5-5.1); Alkaline Phosphatase 48 U/L (38-126); Anion Gap 5 mmol/L (4-12); Aspartate Amino Transferase 30 U/L (14-36); Bilirubin,Total 0.7 mg/dL (0.2-1.3); Blood Urea Nitrogen 30 mg/dL (7-17); Calcium 9.9 mg/dL (8.4-10.2); Carbon Dioxide 28 mmol/L (22-30); Chloride 108 mmol/L (98-107); Estimated CRCL calculation 30 ml/min; Estimated Glomerular Filt Rate 28; Glucose 105 mg/dL (65-110); Potassium 3.3 mmol/L (3.4-5.0); Sodium 141 mmol/L (137-145)
[2024-05-05 08:00] VITALS: O2SAT 95
[2024-05-05 08:03] LABS: Glucose Point of Care 104 mg/dl (65-105)
[2024-05-05] MEDS: ENOXAPARIN 40 MG/0.4 ML SYRINGE SUB-Q (09:46)
[2024-05-05] MEDS: amLODIPine BESYLATE 10 MG TABLET PO (09:46)
[2024-05-05] MEDS: ATORVASTATIN 40 MG TABLET PO (09:46)
[2024-05-05] MEDS: SERTRALINE HCL 50 MG TABLET 100 MG PO (09:46)
[2024-05-05] MEDS: levETIRAcetam 250 MG TABLET 750 MG PO (09:46)
[2024-05-05 09:47] VITALS: PULSE 70
[2024-05-05] MEDS: FENOFIBRATE 160 MG TABLET PO (09:47)
[2024-05-05] MEDS: METOPROLOL TARTRATE 25 MG TABLET PO (09:47)
[2024-05-05] MEDS: LACOSAMIDE (*CRX) 100 MG TABLET PO (09:47)
[2024-05-05] MEDS: ASPIRIN 81 MG CHEWABLE TABLET PO (09:47)
[2024-05-05 11:54] LABS: Glucose Point of Care 139 mg/dl (65-105)
[2024-05-05] MEDS: POTASSIUM CHLORIDE 20 MEQ ER TABLET 40 MEQ PO (12:18)
[2024-05-05] MEDS: SODIUM CHLORIDE 0.9% IV 500 ML IV CONT (12:19)
[2024-05-05 14:00] VITALS: BP 132/82; PULSE 71; RESP 20; TEMP 37.3; O2SAT 95
[2024-05-05 15:09] LABS: Alanine Aminotransferase 23 U/L (6-35); Albumin Level 3.6 g/dL (3.5-5.1); Alkaline Phosphatase 41 U/L (38-126); Anion Gap 6 mmol/L (4-12); Aspartate Amino Transferase 40 U/L (14-36); Bilirubin,Total 1.1 mg/dL (0.2-1.3); Blood Urea Nitrogen 31 mg/dL (7-17); Calcium 9.3 mg/dL (8.4-10.2); Carbon Dioxide 25 mmol/L (22-30); Chloride 109 mmol/L (98-107); Estimated CRCL calculation 38 ml/min; Estimated Glomerular Filt Rate 37; Glucose 107 mg/dL (65-110); Potassium 3.9 mmol/L (3.4-5.0); Sodium 140 mmol/L (137-145)
[2024-05-05 16:54] LABS: Glucose Point of Care 105 mg/dl (65-105)
--- NOTE | 2024-05-05 17:47 | PC.NURSE ---
RN attempted to call report to [facility] but was unable to get ahold of anyone
--- NOTE | 2024-05-05 18:06 | PC.NURSE ---
RN provided report to pt daughter Claudia so that she was aware of what was going on.
== END 2024-05-05 18:19 | DRG 683 ==
LOC: ANHED 17:02 → ANH3MEDSUR 18:04
PROVIDERS: Admitting Provider Internal Medicine; Emergency Provider Nurse Practitioner; PCP Physician Assistant; Visit Provider Nurse Practitioner Acute Care
DX: N17.9 Acute kidney failure, unspecified (principal); R44.0 Auditory hallucinations; E86.0 Dehydration; R44.1 Visual hallucinations; I11.0 Hypertensive heart disease with heart failure; I50.9 Heart failure, unspecified; G40.909 Epilepsy, unspecified, not intractable, without status epilepticus; E78.5 Hyperlipidemia, unspecified; I25.10 Atherosclerotic heart disease of native coronary artery without angina pectoris; E55.9 Vitamin D deficiency, unspecified; E53.8 Deficiency of other specified B group vitamins; I48.91 Unspecified atrial fibrillation; K21.9 Gastro-esophageal reflux disease without esophagitis; E11.65 Type 2 diabetes mellitus with hyperglycemia
CPT/HCPCS: 36415; 80053; 81003; 82140; 82948; 83036; 83735; 85025; 96360; 96372; 97161; 97165; 99285; A9270; G0378; J1650; J1815; J2359; J7030; J7040

== ENCOUNTER 2024-06-13 12:34 | Emergency (ER) | payer MEDICARE, MEDICAID, SELFPAY ==
[2024-06-13] VITALS (11 sets, daily range): BP systolic 120–129; BP diastolic 61–63; PULSE 57–70; RESP 15–22; TEMP 36.3–36.4; O2SAT 96–99
[2024-06-13 13:57] LABS: Basophils Absolute Auto 0.1 K/mm3 (0.0-0.1); Basophils Percent Auto 0.5 % (0.2-1.2); Eosinophils Absolute Auto 0.2 K/mm3 (0-0.3); Eosinophils Percent Auto 1.7 % (0-4.4); Hematocrit 41.4 % (37.0-47.0); Immature Granulocyte Absolute 0.05 K/mm3 (0.00-0.031); Immature Granulocyte Percent A 0.4 % (0-0.5); Lymphocytes Absolute Auto 1.58 K/mm3 (0.9-3.2); Lymphocytes Percent Auto 12.4 % (18.3-44.2); Mean Corpuscular HGB Conc 31.4 g/dl (32-36); Mean Corpuscular Hemoglobin 30.4 pg (26-34); Mean Corpuscular Volume 96.7 fl (80-100); Mean Platelet Volume 11.9 fl (7.4-10.4); Monocytes Absolute Auto 1.1 K/mm3 (0.1-0.6); Neutrophils Absolute Auto 9.7 K/mm3 (1.3-6.7); Platelet Count Result 256 k/mm3 (150-375); Red Blood Count 4.28 M/mm3 (4.2-5.4); White Blood Count 12.7 K/mm3 (4.5-10.0)
[2024-06-13 14:16] LABS: Add Urine Microscopic? YES; Appearance Urine Cloudy (Clear); Bacteria Urine None Seen /hpf; Bilirubin Urine Negative (Negative); Blood Urine 1+ (Negative); Color Urine Yellow (Yellow); Glucose Urine UA 3+ mg/dL (Negative); Ketones Urine Negative (Negative); Leukocyte Esterase Ur 2+ LEU/UL (Negative); Nitrate Urine Negative (Negative); Non Pathogenic Casts 0-2; Protein Urine 1+ mg/dL (Negative); Specific Grav Ur 1.021 (1.001-1.035); Squamous Epithelial Cell Urine None Seen /hpf (Few); WBC Urine >100 /hpf (0-3); pH Urine 6.5 (5.0-9.0)
[2024-06-13 14:21] LABS: Alanine Aminotransferase 17 U/L (6-35); Alkaline Phosphatase 56 U/L (38-126); Anion Gap 7 mmol/L (4-12); Aspartate Amino Transferase 35 U/L (14-36); Bilirubin,Total 0.8 mg/dL (0.2-1.3); Blood Urea Nitrogen 22 mg/dL (7-17); Calcium 9.7 mg/dL (8.4-10.2); Carbon Dioxide 28 mmol/L (22-30); Chloride 107 mmol/L (98-107); Estimated CRCL calculation 41 ml/min; Estimated Glomerular Filt Rate 40; Glucose 122 mg/dL (65-110); Sodium 142 mmol/L (137-145)
--- NOTE | 2024-06-13 15:03 | PC.NURSE ---
Pt is agitated, yelling and hitting at staff. Pt is confuse. Nurse called her daughter, daughter said that pt was just Diagnost with Dementia and they got into a fight yesterday and is better if daughter stay away. Pt redirected many time, no success, pt uncooperative.
--- NOTE | 2024-06-13 15:17 | PC.NURSE ---
Pt is pulling wires out of the monitor, pulled all wires and cardiac leads off and refused vs.
--- NOTE | 2024-06-13 15:23 | ED.FEMALEGU ---
HPI - Female Genitourinary General Chief complaint: Urogenital-Female Stated complaint: UIT, increased confusion, verbal aggression Time Seen by Provider: 06/13/24 14:55 History of Present Illness HPI Narrative: 69-year-old female presenting with increased aggression. She is coming from a nursing facility where she has been increasingly aggressive and rude to staff. Their concern for UTI. On my evaluation, the patient tells me that it is none of my business whether not she has pain. Related Data Home Medications Medication Instructions Recorded Confirmed dapagliflozin propanediol 10 mg 10 mg PO DAILY 05/02/24 05/02/24 tablet (Farxiga) fenofibrate 160 mg tablet 160 mg PO DAILY 05/02/24 05/02/24 insulin glargine 100 unit/mL (3 25 unit subcut HS 05/02/24 05/02/24 mL) subcutaneous pen (Lantus Solostar U-100 Insulin) insulin lispro 100 unit/mL 2 - 10 unit subcut TIDWM 05/02/24 05/02/24 subcutaneous solution lacosamide 100 mg tablet 100 mg PO BID 05/02/24 05/02/24 linagliptin 5 mg tablet (Tradjenta) 5 mg PO DAILY 05/02/24 05/02/24 miconazole nitrate 2 % topical 1 applic topical Q12HR PRN Rash 05/02/24 05/02/24 cream (Antifungal (miconazole)) Allergies Allergy/AdvReac Type Severity Reaction Status Date / Time morphine Allergy Unknown Verified 06/13/24 12:50 Review of Systems Review of Systems: All systems reviewed & are unremarkable except as noted in HPI and below PMFSH Past Medical History Medical History Atrial fibrillation CAD (coronary artery disease) Essential hypertension GERD (gastroesophageal reflux disease) History of hemorrhagic cerebrovascular accident (CVA) without residual deficits Hyperlipidemia Seizure disorder Type 2 diabetes mellitus Vitamin B12 deficiency Vitamin D deficiency Social History Social History Smoking status: Never smoker Second hand tobacco smoke exposure: No Alcohol intake: unknown Substance use: unknown Spiritual care concerns: No Exam Narrative: GENERAL: Chronically ill-appearing but nontoxic and in no acute distress, verbally aggressive but redirectable HEAD: Normocephalic, atraumatic. EYES: PERRLA and EOMI. ENT: Grossly unremarkable NECK: Supple. CHEST: No respiratory distress. HEART: Regular rate and rhythm ABDOMEN: Soft, nontender, nondistended EXTREMITIES: Normal range of motion SKIN: Warm, dry, no rash. NEURO: Alert and oriented x2-3 which is baseline. PSYCH: appears anxious, verbally aggressive Course Vital Signs Vital signs: Vital Signs Temperature 97.3 F L 06/13/24 12:37 Pulse Rate 64 06/13/24 12:37 Respiratory Rate 16 06/13/24 12:37 Blood Pressure 129/62 06/13/24 12:37 Pulse Oximetry 97 06/13/24 12:37 Oxygen Delivery Room Air 06/13/24 12:37 Temperature 97.3 F L 06/13/24 12:37 Pulse Rate 70 06/13/24 14:00 Respiratory Rate 22 H 06/13/24 14:00 Blood Pressure 120/61 06/13/24 13:16 Pulse Oximetry 98 06/13/24 14:00 Oxygen Delivery Room Air 06/13/24 12:37 MDM - Female Genitourinary MDM Narrative Medical decision making narrative: 69-year-old female presenting with increased aggression. Vitals are stable. Exam remarkable for the above. Blood work with white count of 12.7. Renal function is at baseline. UA is concerning for UTI. Will give the patient a dose of IV Rocephin and discharged with Keflex. Recommend close PCP follow-up. Appropriate return precautions given. Discharged in stable condition. Lab Data 06/13/24 13:49 06/13/24 13:49 Labs: Lab Results 06/13/24 Range/Units 13:49 WBC 12.7 H (4.5-10.0) K/mm3 RBC 4.28 (4.2-5.4) M/mm3 Hgb 13.0 (12.0-15.0) g/dL Hct 41.4 (37.0-47.0) % MCV 96.7 (80-100) fl MCH 30.4 (26-34) pg MCHC 31.4 L (32-36) g/dl RDW 13.0 (11.5-14.5) % Plt Count 256 (150-375) k/mm3 MPV 11.9 H (7.4-10.4) fl Immature Gran % (Auto) 0.4 (0-0.5) % Neut % (Auto) 76.0 H (45.5-73.1) % Lymph % (Auto) 12.4 L (18.3-44.2) % [place] % (Auto) 9.0 H (2.6-8.5) % Eos % (Auto) 1.7 (0-4.4) % Baso % (Auto) 0.5 (0.2-1.2) % Lymph # (Auto) 1.58 (0.9-3.2) K/mm3 [place] # (Auto) 1.1 H (0.1-0.6) K/mm3 Eos # (Auto) 0.2 (0-0.3) K/mm3 Baso # (Auto) 0.1 (0.0-0.1) K/mm3 Abs Immat Gran (auto) 0.05 H (0.00-0.031) K/mm3 Absolute Neuts (auto) 9.7 H (1.3-6.7) K/mm3 Absolute Nucleated RBC 0.000 (0.0-0.012) K/mm3 Nucleated RBC % 0.0 (0.0-0.2) % Sodium 142 (137-145) mmol/L Potassium 4.0 (3.4-5.0) mmol/L Chloride 107 (98-107) mmol/L Carbon Dioxide 28 (22-30) mmol/L Anion Gap 7 (4-12) mmol/L BUN 22 H (7-17) mg/dL Creatinine 1.30 H (0.7-1.0) mg/dL Estim Creat Clear Calc 41 ml/min Estimated GFR 40 L (59 - ) Glucose 122 H (65-110) mg/dL Calcium 9.7 (8.4-10.2) mg/dL Total Bilirubin 0.8 (0.2-1.3) mg/dL AST 35 (14-36) U/L ALT 17 (6-35) U/L Alkaline Phosphatase 56 (38-126) U/L Total Protein 7.0 (6.3-8.2) g/dL Albumin 4.0 (3.5-5.1) g/dL Urine Color Yellow (Yellow) Urine Appearance Cloudy H (Clear) Urine pH 6.5 (5.0-9.0) Ur Specific [place] 1.021 (1.001-1.035) Urine Protein 1+ H (Negative) mg/dL Urine Glucose (UA) 3+ H (Negative) mg/dL Urine Ketones Negative (Negative) mg/dL Ur Blood (Man) 1+ H (Negative) Urine Nitrate Negative (Negative) Urine Bilirubin Negative (Negative) Urine Urobilinogen 1.0 (<2.0) mg/dL Leukocyte Esterase Rfl 2+ H (Negative) DURAN/UL Urine RBC 6-10 H (0-2) /hpf Urine WBC >100 H (0-3) /hpf Ur Squamous Epith Cells None seen (Few) /hpf Urine Bacteria None seen /hpf Urine Casts 0-2 Critical Care Time Critical Care Time Critical Care Time: No Discharge Plan Discharge Clinical Impression: Urinary tract infection, Aggressive behavior Patient Disposition: [place] Fdc/Asst Living Condition: Stable Instructions: Antibiotic Form, Urinary Tract Infection in Women (ED) Additional Instructions: We are treating you for urinary tract infection today. Please complete the antibiotics as prescribed. The rest of your blood work is at baseline. Follow-up closely with your PCP. If your symptoms worsen or other concerning symptoms arise, please return to the ER. Prescriptions: New cephalexin 500 mg capsule 500 mg PO Q12H 7 Days Qty: 14 0RF No Action fenofibrate 160 mg tablet 160 mg PO DAILY lacosamide 100 mg tablet 100 mg PO BID Tradjenta 5 mg tablet 5 mg PO DAILY dapagliflozin propanediol [Farxiga] 10 mg tablet 10 mg PO DAILY miconazole nitrate [Antifungal (miconazole)] 2 % cream 1 applic topical Q12HR PRN (Reason: Rash) Rx Instructions: for rash insulin glargine [Lantus Solostar U-100 Insulin] 100 unit/mL (3 mL) insulin pen 25 unit SUBCUT HS insulin lispro 100 unit/mL Solution 2 - 10 unit SUBCUT TIDWM Rx Instructions: per sliding scale aspirin [Children's Aspirin] 81 mg Tablet,Chewable 81 mg PO DAILY@0800 Qty: 30 0RF cholecalciferol (vitamin D3) 1,250 mcg (50,000 unit) Capsule 1,250 mcg PO WEEKLY Qty: 14 0RF atorvastatin 40 mg Tablet 40 mg PO DAILY Qty: 30 0RF acetaminophen [Mapap (acetaminophen)] 325 mg Tablet 975 mg PO Q6H PRN (Reason: Pain Rated 1-3) Qty: 30 0RF amlodipine 10 mg Tablet 10 mg PO QAM Qty: 30 0RF levetiracetam [Keppra] 500 mg Tablet 750 mg PO Q12HR Qty: 60 0RF sertraline [Zoloft] 100 mg Tablet 100 mg PO QAM Qty: 30 0RF metoprolol tartrate 25 mg Tablet 25 mg PO Q12HR Qty: 60 0RF Follow-up/Referrals: Yahir,ZURI Kelley [Primary Care Provider] -
[2024-06-13] MEDS: LORazepam INJ (*CRX) 2 MG/ML VIAL 0.5 MG IV PUSH (15:58)
[2024-06-13] MEDS: cefTRIAXone 2 GM/NS 100 ML 2 GM/100 ML BAG IVPB (15:59)
== END 2024-06-13 17:39 ==
PROVIDERS: Emergency Medicine; Emergency Provider Emergency Medicine; PCP Physician Assistant
DX: N39.0 Urinary tract infection, site not specified (principal); F91.9 Conduct disorder, unspecified; I48.91 Unspecified atrial fibrillation; I25.10 Atherosclerotic heart disease of native coronary artery without angina pectoris; I10 Essential (primary) hypertension; K21.9 Gastro-esophageal reflux disease without esophagitis; Z86.73 Personal history of transient ischemic attack (TIA), and cerebral infarction without residual deficits; E78.5 Hyperlipidemia, unspecified; G40.909 Epilepsy, unspecified, not intractable, without status epilepticus; E11.9 Type 2 diabetes mellitus without complications; Z79.4 Long term (current) use of insulin
CPT/HCPCS: 36415; 80053; 81001; 85025; 87077; 87086; 87186; 96365; 96375; 99284; J0696; J2060

== ENCOUNTER 2024-10-03 12:08 | Inpatient (IN) | payer MEDICARE, SELFPAY ==
[2024-10-03] VITALS (9 sets, daily range): BP systolic 140–156; BP diastolic 60–86; PULSE 74–137; RESP 16–24; TEMP 36.8–37; O2SAT 94–100; BMI 28.1
--- NOTE | ~2024-10-03 | CT_ITS ---
CT brain wo con Ordering provider: Ena Johnson APRN History: 69 years Female with . altered mental status . Comparison: April 25, 2024 Technique: CT of the head without contrast. Radiation reduction technique utilized The dose-length product was 605.33 mGy-cm. FINDINGS: BRAIN PARENCHYMA AND CSF SPACES: Mild leukoaraiosis and diffuse cortical atrophy. Mild atheromatous d isease. 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 Old lacunar infarct in the righ t basal ganglia. No midline shift, mass effect or hemorrhage. The brain parenchyma and CSF spaces ar e otherwise normal. VISUALIZED PARANASAL SINUSES: Well aerated. MASTOIDS: Well aerated. BONES: The bones appear intact. SOFT TISSUES: Visualized nasopharynx is normal. Superficial soft tissues are normal. IMPRESSION: No acute intracranial findings. Reviewed, dictated and finalized at location A.
--- NOTE | 2024-10-03 12:41 | ECG_ITS ---
Test Date: 2024-10-03 13:12:39 Measurements Intervals [place] Rate: 90 P: 76 [place]: 210 QRS: -24 QRSD: 116 T: 89 QT: 369 QTc: 452 Interpretive Statements SINUS RHYTHM WITH FIRST DEGREE AV BLOCK LEFT VENTRICULAR HYPERTROPHY AND ST-T CHANGE [VOLTAGE CRITERIA PLUS ST/T ABNORMALITY] POSSIBLE ANTERIOR MYOCARDIAL INFARCTION , OF INDETERMINATE AGE [30 ms Q WAVE IN V3/V4, OR R < 0.2 mV IN V4] INFERIOR MYOCARDIAL INFARCTION , PROBABLY OLD [40+ ms Q WAVE AND/OR ST/T ABNORMALITY IN II/aVF] Compared to ECG 04/25/2024 11:22:12 NO SIGNIFICANT CHANGES Electronically Signed On 10-04-2024 16:37:24 CDT by Praveen Neri M.D.
--- NOTE | 2024-10-03 12:43 | ED.GENADULT ---
HPI - General Adult General Chief complaint: Seizure <Ena Johnson APRN - Last Filed: 10/03/24 12:45> Stated complaint: daughter wants eval after stopping sz meds <Ena Johnson APRN - Last Filed: 10/03/24 12:45> Time Seen by Provider: 10/03/24 12:30 <Ena Johnson APRN - Last Filed: 10/03/24 12:45> Focused HPI: Patient is a 69-year-old female who presents the ER with altered mental status. EMS reports she has a history of seizures but her doctor recently took her off seizure medication. Patient's daughter is very concerned the patient is continuing to have seizures and she wants patient evaluated. Patient is alert and oriented x1 at the time of examination. She denies any pain at the time of examination. Patient is a poor historian and is unable to provide any other medical history. GENERAL: Well-appearing, well-nourished, and in no acute distress. HEAD: Normocephalic, atraumatic. CHEST: Clear to auscultation. ?No respiratory distress. HEART: Regular rate and rhythm.? NEURO: ?Alert and oriented x3. Patient screened in triage and initial orders placed.? ?Additional care and disposition to be based upon?diagnostic testing and treatment. <Ena Johnson APRN - Last Filed: 10/03/24 12:45> History of Present Illness HPI narrative: Agree with HPI. residential has been withholding patient's medication apparently due to negative interactions with the daughter. Patient may have had a seizure today and they accused her of given her medication causing her to sees. The daughter was actually arrested. Patient was evaluated in triage and then when she has come back to the room had a tonic clonic seizure lasting less than 1 minute. She was postictal and had a nasal trumpet inserted. She did receive 1 mg of Ativan. Neurologist is Dr. Can. Has not taken her keppra or lacosamide for several days. <Prasad Ruano MD - Last Filed: 10/03/24 20:20> Related Data Home medications: Home Medications ?Medication ?Instructions ?Recorded ?Confirmed ?Last Taken ?Type dapagliflozin propanediol 10 mg 10 mg PO DAILY 05/02/24 05/02/24 Unknown History tablet (Farxiga) fenofibrate 160 mg tablet 160 mg PO DAILY 05/02/24 05/02/24 Unknown History insulin glargine 100 unit/mL (3 25 unit subcut HS 05/02/24 05/02/24 Unknown History mL) subcutaneous pen (Lantus Solostar U-100 Insulin) insulin lispro 100 unit/mL 2 - 10 unit subcut TIDWM 05/02/24 05/02/24 Unknown History subcutaneous solution lacosamide 100 mg tablet 100 mg PO BID 05/02/24 05/02/24 Unknown History linagliptin 5 mg tablet (Tradjenta) 5 mg PO DAILY 05/02/24 05/02/24 Unknown History miconazole nitrate 2 % topical 1 applic topical Q12HR PRN Rash 05/02/24 05/02/24 Unknown History cream (Antifungal (miconazole)) <Ena Johnson, HYDROGRAPHICAL TECHNICAL OFFICER - Last Filed: 10/03/24 12:45> Allergies/adverse reactions: Allergies Allergy/AdvReac Type Severity Reaction Status Date / Time morphine Allergy Unknown Verified 06/13/24 12:50 <Ena Johnson HYDROGRAPHICAL TECHNICAL OFFICER - Last Filed: 10/03/24 12:45> PMFSH Past Medical History Medical History: Medical History Atrial fibrillation CAD (coronary artery disease) Essential hypertension GERD (gastroesophageal reflux disease) History of hemorrhagic cerebrovascular accident (CVA) without residual deficits Hyperlipidemia Seizure disorder Type 2 diabetes mellitus Vitamin B12 deficiency Vitamin D deficiency <Ena Johnson APRN - Last Filed: 10/03/24 12:45> Social History Social History: Social History Smoking status: Never smoker Second hand tobacco smoke exposure: No Alcohol intake: unknown Substance use: unknown Spiritual care concerns: No <Ena Johnson APRN - Last Filed: 10/03/24 12:45> Exam Narrative: GENERAL: Chronically-appearing, well-nourished, and in no acute distress. HEAD: Normocephalic, atraumatic. EYES: PERRL and EOMI. ENT: Mucous membranes moist. CHEST: Clear to auscultation. No respiratory distress. HEART: Regular rate and rhythm. Normal peripheral pulses. ABDOMEN: Soft, nontender, nondistended. EXTREMITIES: Normal range of motion. No edema. SKIN: Warm, dry, no rash. NEURO: Alert and oriented x3. PSYCH: Normal mood and affect. <Prasad Ruano MD - Last Filed: 10/03/24 20:20> Course Course Emergency Course: 1824: Multiple hemolyzed labs. EJ placed in additional green top drawn. Patient did receive Keppra 1g IV. Discussed with Dr. Flor who will see the patient. Called hospitalist who declined to talk about the patient and would like us to wait until the next shift. 2018: Accepted by hospitalist. Labs added on per hospitalist request. <Prasad Ruano MD - Last Filed: 10/03/24 20:20> Vital Signs Vital signs: Vital Signs Temperature 98.3 F 10/03/24 12:34 Pulse Rate 137 H 10/03/24 12:34 Respiratory Rate 20 10/03/24 12:34 Blood Pressure 149/86 H 10/03/24 12:34 Pulse Oximetry 100 10/03/24 12:34 Oxygen Delivery Room Air 10/03/24 12:34 Temperature 98.3 F 10/03/24 12:34 Pulse Rate 80 10/03/24 16:54 Respiratory Rate 16 10/03/24 16:54 Blood Pressure 149/75 H 10/03/24 16:54 Pulse Oximetry 97 10/03/24 16:54 Oxygen Delivery Room Air 10/03/24 13:45 <Ena Johnson, RASHID - Last Filed: 10/03/24 12:45> Vital Signs Temperature 98.3 F 10/03/24 12:34 Pulse Rate 137 H 10/03/24 12:34 Respiratory Rate 20 10/03/24 12:34 Blood Pressure 149/86 H 10/03/24 12:34 Pulse Oximetry 100 10/03/24 12:34 Oxygen Delivery Room Air 10/03/24 12:34 Temperature 98.3 F 10/03/24 12:34 Pulse Rate 80 10/03/24 16:54 Respiratory Rate 16 10/03/24 16:54 Blood Pressure 149/75 H 10/03/24 16:54 Pulse Oximetry 97 10/03/24 16:54 Oxygen Delivery Room Air 10/03/24 13:45 <Prasad Ruano MD - Last Filed: 10/03/24 20:20> Procedures EJ/Peripheral Line Neck R: EJ/Peripheral Line Date: 10/03/24 <Prasad Ruano MD - Last Filed: 10/03/24 20:20> EJ/Peripheral Line Time: 17:58 <Prasad Ruano MD - Last Filed: 10/03/24 20:20> Time Out Performed: No <Prasad Ruano MD - Last Filed: 10/03/24 20:20> Skin Cleansed in Sterile Fashion: Yes <Prasad Ruano MD - Last Filed: 10/03/24 20:20> Ultrasound Guided: No <Prasad Ruano MD - Last Filed: 10/03/24 20:20> Size (gauge): 20 <Prasad Ruano MD - Last Filed: 10/03/24 20:20> IV Secured and Dressing Applied: Yes <Prasad Ruano MD - Last Filed: 10/03/24 20:20> Patient Tolerated Procedure: well <Prasad Ruano MD - Last Filed: 10/03/24 20:20> Medical Decision Making Vital Signs Vital Signs: Vital Signs Temperature 98.3 F 10/03/24 12:34 Pulse Rate 137 H 10/03/24 12:34 Respiratory Rate 20 10/03/24 12:34 Blood Pressure 149/86 H 10/03/24 12:34 Pulse Oximetry 100 10/03/24 12:34 Oxygen Delivery Room Air 10/03/24 12:34 Temperature 98.3 F 10/03/24 12:34 Pulse Rate 80 10/03/24 16:54 Respiratory Rate 16 10/03/24 16:54 Blood Pressure 149/75 H 10/03/24 16:54 Pulse Oximetry 97 10/03/24 16:54 Oxygen Delivery Room Air 10/03/24 13:45 <Ena Johnson APRN - Last Filed: 10/03/24 12:45> Vital Signs Temperature 98.3 F 10/03/24 12:34 Pulse Rate 137 H 10/03/24 12:34 Respiratory Rate 20 10/03/24 12:34 Blood Pressure 149/86 H 10/03/24 12:34 Pulse Oximetry 100 10/03/24 12:34 Oxygen Delivery Room Air 10/03/24 12:34 Temperature 98.3 F 10/03/24 12:34 Pulse Rate 80 10/03/24 16:54 Respiratory Rate 16 10/03/24 16:54 Blood Pressure 149/75 H 10/03/24 16:54 Pulse Oximetry 97 10/03/24 16:54 Oxygen Delivery Room Air 10/03/24 13:45 <Prasad Ruano MD - Last Filed: 10/03/24 20:20> Lab Data Result diagrams: 10/03/24 13:37 10/03/24 17:59 <Ena Johnson APRN - Last Filed: 10/03/24 12:45> Labs: Lab Results 10/03/24 10/03/24 10/03/24 Range/Units 13:07 13:36 13:37 WBC 8.3 (4.5-10.0) K/mm3 RBC 4.74 (4.2-5.4) M/mm3 Hgb 13.9 (12.0-15.0) g/dL Hct 46.1 (37.0-47.0) % MCV 97.3 (80-100) fl MCH 29.3 (26-34) pg MCHC 30.2 L (32-36) g/dl RDW 13.3 (11.5-14.5) % Plt Count 297 (150-375) k/mm3 MPV 11.4 H (7.4-10.4) fl Immature Gran % (Auto) 0.6 H (0-0.5) % Neut % (Auto) 80.0 H (45.5-73.1) % Lymph % (Auto) 13.3 L (18.3-44.2) % [place] % (Auto) 5.2 (2.6-8.5) % Eos % (Auto) 0.1 (0-4.4) % Baso % (Auto) 0.8 (0.2-1.2) % Lymph # (Auto) 1.11 (0.9-3.2) K/mm3 [place] # (Auto) 0.4 (0.1-0.6) K/mm3 Eos # (Auto) 0.0 (0-0.3) K/mm3 Baso # (Auto) 0.1 (0.0-0.1) K/mm3 Abs Immat Gran (auto) 0.05 H (0.00-0.031) K/mm3 Absolute Neuts (auto) 6.7 (1.3-6.7) K/mm3 Absolute Nucleated RBC 0.000 (0.0-0.012) K/mm3 Nucleated RBC % 0.0 (0.0-0.2) % PT 14.2 (11.1-14.7) Seconds INR 1.1 APTT 21.8 L (22.3-36.8) Seconds Sodium (137-145) mmol/L Potassium (3.4-5.0) mmol/L Chloride (98-107) mmol/L Carbon Dioxide (22-30) mmol/L Anion Gap (4-12) mmol/L BUN (7-17) mg/dL Creatinine (0.7-1.0) mg/dL Estim Creat Clear Calc ml/min Estimated GFR (59 - ) Glucose (65-110) mg/dL POC Capillary Glucose 184 H (65-105) mg/dl Calcium (8.4-10.2) mg/dL Total Bilirubin (0.2-1.3) mg/dL AST (14-36) U/L ALT (6-35) U/L Alkaline Phosphatase (38-126) U/L Troponin I (0.000-0.034) ng/mL Total Protein (6.3-8.2) g/dL Albumin (3.5-5.1) g/dL TSH Pending Urine Color Dark yellow (Yellow) Urine Appearance Clear (Clear) Urine pH 5.0 (5.0-9.0) Ur Specific [place] 1.018 (1.001-1.035) Urine Protein 2+ H (Negative) mg/dL Urine Glucose (UA) Negative (Negative) mg/dL Urine Ketones Trace H (Negative) mg/dL Ur Blood (Man) Negative (Negative) Urine Nitrate Negative (Negative) Urine Bilirubin Negative (Negative) Urine Urobilinogen 0.2 (<2.0) mg/dL Add Ur Microanalysis Reviewed Leukocyte Esterase Rfl Negative (Negative) DURAN/UL Urine RBC 0-2 (0-2) /hpf Urine WBC 0-5 (0-3) /hpf Ur Squamous Epith Cells Occasional (Few) /hpf Urine Bacteria None seen /hpf Urine Casts 6-10 Hyaline Casts 1-2 (None) /lpf Urine Mucus Present /lpf Urine Opiates Screen Negative (Negative) Urine Methadone Screen Negative (Negative) Ur Barbiturates Screen Negative (Negative) Ur Phencyclidine Scrn Negative (Negative) Ur Amphetamine Screen Negative (Negative) U Benzodiazepines Scrn Negative (Negative) Urine Cocaine Screen Negative (Negative) U Cannabinoids Screen Negative (Negative) 10/03/24 Range/Units 17:59 WBC (4.5-10.0) K/mm3 RBC (4.2-5.4) M/mm3 Hgb (12.0-15.0) g/dL Hct (37.0-47.0) % MCV (80-100) fl MCH (26-34) pg MCHC (32-36) g/dl RDW (11.5-14.5) % Plt Count (150-375) k/mm3 MPV (7.4-10.4) fl Immature Gran % (Auto) (0-0.5) % Neut % (Auto) (45.5-73.1) % Lymph % (Auto) (18.3-44.2) % [place] % (Auto) (2.6-8.5) % Eos % (Auto) (0-4.4) % Baso % (Auto) (0.2-1.2) % Lymph # (Auto) (0.9-3.2) K/mm3 [place] # (Auto) (0.1-0.6) K/mm3 Eos # (Auto) (0-0.3) K/mm3 Baso # (Auto) (0.0-0.1) K/mm3 Abs Immat Gran (auto) (0.00-0.031) K/mm3 Absolute Neuts (auto) (1.3-6.7) K/mm3 Absolute Nucleated RBC (0.0-0.012) K/mm3 Nucleated RBC % (0.0-0.2) % PT (11.1-14.7) Seconds INR APTT (22.3-36.8) Seconds Sodium 140 (137-145) mmol/L Potassium 3.7 (3.4-5.0) mmol/L Chloride 110 H (98-107) mmol/L Carbon Dioxide 22 (22-30) mmol/L Anion Gap 8 (4-12) mmol/L BUN 16 (7-17) mg/dL Creatinine 0.91 (0.7-1.0) mg/dL Estim Creat Clear Calc 51 ml/min Estimated GFR > 60 (59 - ) Glucose 138 H (65-110) mg/dL POC Capillary Glucose (65-105) mg/dl Calcium 9.1 (8.4-10.2) mg/dL Total Bilirubin 0.9 (0.2-1.3) mg/dL AST 36 (14-36) U/L ALT 23 (6-35) U/L Alkaline Phosphatase 45 (38-126) U/L Troponin I 0.086 H* (0.000-0.034) ng/mL Total Protein 6.0 L (6.3-8.2) g/dL Albumin 3.4 L (3.5-5.1) g/dL TSH Urine Color (Yellow) Urine Appearance (Clear) Urine pH (5.0-9.0) Ur Specific [place] (1.001-1.035) Urine Protein (Negative) mg/dL Urine Glucose (UA) (Negative) mg/dL Urine Ketones (Negative) mg/dL Ur Blood (Man) (Negative) Urine Nitrate (Negative) Urine Bilirubin (Negative) Urine Urobilinogen (<2.0) mg/dL Add Ur Microanalysis Leukocyte Esterase Rfl (Negative) DURAN/UL Urine RBC (0-2) /hpf Urine WBC (0-3) /hpf Ur Squamous Epith Cells (Few) /hpf Urine Bacteria /hpf Urine Casts Hyaline Casts (None) /lpf Urine Mucus /lpf Urine Opiates Screen (Negative) Urine Methadone Screen (Negative) Ur Barbiturates Screen (Negative) Ur Phencyclidine Scrn (Negative) Ur Amphetamine Screen (Negative) U Benzodiazepines Scrn (Negative) Urine Cocaine Screen (Negative) U Cannabinoids Screen (Negative) <Ena Johnson, HYDROGRAPHICAL TECHNICAL OFFICER - Last Filed: 10/03/24 12:45> Lab Results 10/03/24 10/03/24 10/03/24 Range/Units 13:07 13:36 13:37 WBC 8.3 (4.5-10.0) K/mm3 RBC 4.74 (4.2-5.4) M/mm3 Hgb 13.9 (12.0-15.0) g/dL Hct 46.1 (37.0-47.0) % MCV 97.3 (80-100) fl MCH 29.3 (26-34) pg MCHC 30.2 L (32-36) g/dl RDW 13.3 (11.5-14.5) % Plt Count 297 (150-375) k/mm3 MPV 11.4 H (7.4-10.4) fl Immature Gran % (Auto) 0.6 H (0-0.5) % Neut % (Auto) 80.0 H (45.5-73.1) % Lymph % (Auto) 13.3 L (18.3-44.2) % [place] % (Auto) 5.2 (2.6-8.5) % Eos % (Auto) 0.1 (0-4.4) % Baso % (Auto) 0.8 (0.2-1.2) % Lymph # (Auto) 1.11 (0.9-3.2) K/mm3 [place] # (Auto) 0.4 (0.1-0.6) K/mm3 Eos # (Auto) 0.0 (0-0.3) K/mm3 Baso # (Auto) 0.1 (0.0-0.1) K/mm3 Abs Immat Gran (auto) 0.05 H (0.00-0.031) K/mm3 Absolute Neuts (auto) 6.7 (1.3-6.7) K/mm3 Absolute Nucleated RBC 0.000 (0.0-0.012) K/mm3 Nucleated RBC % 0.0 (0.0-0.2) % PT 14.2 (11.1-14.7) Seconds INR 1.1 APTT 21.8 L (22.3-36.8) Seconds Sodium (137-145) mmol/L Potassium (3.4-5.0) mmol/L Chloride (98-107) mmol/L Carbon Dioxide (22-30) mmol/L Anion Gap (4-12) mmol/L BUN (7-17) mg/dL Creatinine (0.7-1.0) mg/dL Estim Creat Clear Calc ml/min Estimated GFR (59 - ) Glucose (65-110) mg/dL POC Capillary Glucose 184 H (65-105) mg/dl Calcium (8.4-10.2) mg/dL Total Bilirubin (0.2-1.3) mg/dL AST (14-36) U/L ALT (6-35) U/L Alkaline Phosphatase (38-126) U/L Troponin I (0.000-0.034) ng/mL Total Protein (6.3-8.2) g/dL Albumin (3.5-5.1) g/dL TSH Pending Urine Color Dark yellow (Yellow) Urine Appearance Clear (Clear) Urine pH 5.0 (5.0-9.0) Ur Specific [place] 1.018 (1.001-1.035) Urine Protein 2+ H (Negative) mg/dL Urine Glucose (UA) Negative (Negative) mg/dL Urine Ketones Trace H (Negative) mg/dL Ur Blood (Man) Negative (Negative) Urine Nitrate Negative (Negative) Urine Bilirubin Negative (Negative) Urine Urobilinogen 0.2 (<2.0) mg/dL Add Ur Microanalysis Reviewed Leukocyte Esterase Rfl Negative (Negative) DURAN/UL Urine RBC 0-2 (0-2) /hpf Urine WBC 0-5 (0-3) /hpf Ur Squamous Epith Cells Occasional (Few) /hpf Urine Bacteria None seen /hpf Urine Casts 6-10 Hyaline Casts 1-2 (None) /lpf Urine Mucus Present /lpf Urine Opiates Screen Negative (Negative) Urine Methadone Screen Negative (Negative) Ur Barbiturates Screen Negative (Negative) Ur Phencyclidine Scrn Negative (Negative) Ur Amphetamine Screen Negative (Negative) U Benzodiazepines Scrn Negative (Negative) Urine Cocaine Screen Negative (Negative) U Cannabinoids Screen Negative (Negative) 10/03/24 Range/Units 17:59 WBC (4.5-10.0) K/mm3 RBC (4.2-5.4) M/mm3 Hgb (12.0-15.0) g/dL Hct (37.0-47.0) % MCV (80-100) fl MCH (26-34) pg MCHC (32-36) g/dl RDW (11.5-14.5) % Plt Count (150-375) k/mm3 MPV (7.4-10.4) fl Immature Gran % (Auto) (0-0.5) % Neut % (Auto) (45.5-73.1) % Lymph % (Auto) (18.3-44.2) % [place] % (Auto) (2.6-8.5) % Eos % (Auto) (0-4.4) % Baso % (Auto) (0.2-1.2) % Lymph # (Auto) (0.9-3.2) K/mm3 [place] # (Auto) (0.1-0.6) K/mm3 Eos # (Auto) (0-0.3) K/mm3 Baso # (Auto) (0.0-0.1) K/mm3 Abs Immat Gran (auto) (0.00-0.031) K/mm3 Absolute Neuts (auto) (1.3-6.7) K/mm3 Absolute Nucleated RBC (0.0-0.012) K/mm3 Nucleated RBC % (0.0-0.2) % PT (11.1-14.7) Seconds INR APTT (22.3-36.8) Seconds Sodium 140 (137-145) mmol/L Potassium 3.7 (3.4-5.0) mmol/L Chloride 110 H (98-107) mmol/L Carbon Dioxide 22 (22-30) mmol/L Anion Gap 8 (4-12) mmol/L BUN 16 (7-17) mg/dL Creatinine 0.91 (0.7-1.0) mg/dL Estim Creat Clear Calc 51 ml/min Estimated GFR > 60 (59 - ) Glucose 138 H (65-110) mg/dL POC Capillary Glucose (65-105) mg/dl Calcium 9.1 (8.4-10.2) mg/dL Total Bilirubin 0.9 (0.2-1.3) mg/dL AST 36 (14-36) U/L ALT 23 (6-35) U/L Alkaline Phosphatase 45 (38-126) U/L Troponin I 0.086 H* (0.000-0.034) ng/mL Total Protein 6.0 L (6.3-8.2) g/dL Albumin 3.4 L (3.5-5.1) g/dL TSH Urine Color (Yellow) Urine Appearance (Clear) Urine pH (5.0-9.0) Ur Specific [place] (1.001-1.035) Urine Protein (Negative) mg/dL Urine Glucose (UA) (Negative) mg/dL Urine Ketones (Negative) mg/dL Ur Blood (Man) (Negative) Urine Nitrate (Negative) Urine Bilirubin (Negative) Urine Urobilinogen (<2.0) mg/dL Add Ur Microanalysis Leukocyte Esterase Rfl (Negative) DURAN/UL Urine RBC (0-2) /hpf Urine WBC (0-3) /hpf Ur Squamous Epith Cells (Few) /hpf Urine Bacteria /hpf Urine Casts Hyaline Casts (None) /lpf Urine Mucus /lpf Urine Opiates Screen (Negative) Urine Methadone Screen (Negative) Ur Barbiturates Screen (Negative) Ur Phencyclidine Scrn (Negative) Ur Amphetamine Screen (Negative) U Benzodiazepines Scrn (Negative) Urine Cocaine Screen (Negative) U Cannabinoids Screen (Negative) <Prasad Ruano MD - Last Filed: 10/03/24 20:20> Imaging Data Radiologist's impression: ITS Impressions Head CT 10/03/24 14:13 IMPRESSION: No acute intracranial findings. <Prasad Ruano MD - Last Filed: 10/03/24 20:20> ECG Data EKG #1: ECG completion date: 10/03/24 <Prasad Ruano MD - Last Filed: 10/03/24 20:20> ECG completion time: 13:12 <Prasad Ruano MD - Last Filed: 10/03/24 20:20> EKG Interpretation: normal rate (90), sinus rhythm, non-specific ST changes, normal QRS and normal QT <Prasad Ruano MD - Last Filed: 10/03/24 20:20> Discharge Plan Discharge Clinical Impression: Seizures, Elevated troponin <Ena Johnson APRN - Last Filed: 10/03/24 12:45> Patient Disposition: Still a Patient <Ena Johnson APRN - Last Filed: 10/03/24 12:45> Condition: Stable <Ena Johnson APRN - Last Filed: 10/03/24 12:45> Patient Language: Malagasy <Ena Johnson APRN - Last Filed: 10/03/24 12:45> Prescriptions: No Action fenofibrate 160 mg tablet 160 mg PO DAILY lacosamide 100 mg tablet 100 mg PO BID Tradjenta 5 mg tablet 5 mg PO DAILY dapagliflozin propanediol [Farxiga] 10 mg tablet 10 mg PO DAILY miconazole nitrate [Antifungal (miconazole)] 2 % cream 1 applic topical Q12HR PRN (Reason: Rash) Rx Instructions: for rash insulin glargine [Lantus Solostar U-100 Insulin] 100 unit/mL (3 mL) insulin pen 25 unit SUBCUT HS insulin lispro 100 unit/mL Solution 2 - 10 unit SUBCUT TIDWM Rx Instructions: per sliding scale cephalexin 500 mg capsule 500 mg PO Q12H 7 Days Qty: 14 0RF aspirin [Children's Aspirin] 81 mg Tablet,Chewable 81 mg PO DAILY@0800 Qty: 30 0RF cholecalciferol (vitamin D3) 1,250 mcg (50,000 unit) Capsule 1,250 mcg PO WEEKLY Qty: 14 0RF atorvastatin 40 mg Tablet 40 mg PO DAILY Qty: 30 0RF acetaminophen [Mapap (acetaminophen)] 325 mg Tablet 975 mg PO Q6H PRN (Reason: Pain Rated 1-3) Qty: 30 0RF amlodipine 10 mg Tablet 10 mg PO QAM Qty: 30 0RF levetiracetam [Keppra] 500 mg Tablet 750 mg PO Q12HR Qty: 60 0RF sertraline [Zoloft] 100 mg Tablet 100 mg PO QAM Qty: 30 0RF metoprolol tartrate 25 mg Tablet 25 mg PO Q12HR Qty: 60 0RF <Ena Johnson APRN - Last Filed: 10/03/24 12:45> Follow-up/Referrals: Yahir,ZURI Kelley [Primary Care Provider] - <Ena Johnson APRN - Last Filed: 10/03/24 12:45>
--- NOTE | 2024-10-03 13:06 | PC.NURSE ---
Pt. started seizing in WR and immediately brought back to a room. Dr. Ruano notified and to bedside immediately. 1mg IV ativan administered. Nasal trumpet placed in L. nare. Pt. not currently seizing. VSS on RA.
[2024-10-03] MEDS: LORazepam INJ (*CRX) 2 MG/ML VIAL 1 MG IV PUSH (13:13)
[2024-10-03 13:15] LABS: Glucose Point of Care 184 mg/dl (65-105)
[2024-10-03] MEDS: levETIRAcetam 1000MG/NACL100ML 1,000 MG/100 ML BAG 400 MG IVPB (13:23)
[2024-10-03 13:48] LABS: Basophils Absolute Auto 0.1 K/mm3 (0.0-0.1); Basophils Percent Auto 0.8 % (0.2-1.2); Eosinophils Percent Auto 0.1 % (0-4.4); Hematocrit 46.1 % (37.0-47.0); Hemoglobin 13.9 g/dL (12.0-15.0); Immature Granulocyte Absolute 0.05 K/mm3 (0.00-0.031); Immature Granulocyte Percent A 0.6 % (0-0.5); Lymphocytes Absolute Auto 1.11 K/mm3 (0.9-3.2); Lymphocytes Percent Auto 13.3 % (18.3-44.2); Mean Corpuscular HGB Conc 30.2 g/dl (32-36); Mean Corpuscular Hemoglobin 29.3 pg (26-34); Mean Corpuscular Volume 97.3 fl (80-100); Mean Platelet Volume 11.4 fl (7.4-10.4); Monocytes Absolute Auto 0.4 K/mm3 (0.1-0.6); Monocytes Percent Auto 5.2 % (2.6-8.5); Neutrophils Absolute Auto 6.7 K/mm3 (1.3-6.7); Platelet Count Result 297 k/mm3 (150-375); Red Blood Count 4.74 M/mm3 (4.2-5.4); Red Cell Distribution Width 13.3 % (11.5-14.5); White Blood Count 8.3 K/mm3 (4.5-10.0)
[2024-10-03 13:59] LABS: Add Urine Microscopic? YES; Appearance Urine Clear (Clear); Bacteria Urine None Seen /hpf; Bilirubin Urine Negative (Negative); Blood Urine Negative (Negative); Color Urine Dark Yellow (Yellow); Glucose Urine UA Negative (Negative); Ketones Urine Trace mg/dL (Negative); Leukocyte Esterase Ur Negative LEU/UL (Negative); Mucus Urine Present /lpf; Need Manual Microscopic Reviewed; Nitrate Urine Negative (Negative); Protein Urine 2+ mg/dL (Negative); RBC Urine 0-2 /hpf (0-2); Specific Grav Ur 1.018 (1.001-1.035); Squamous Epithelial Cell Urine Occasional /hpf (Few); Urobilinogen Urine 0.2 mg/dL (<2.0); WBC Urine 0-5 /hpf (0-3)
[2024-10-03 14:03] LABS: INR 1.1; Prothrombin Time 14.2 Seconds (11.1-14.7)
[2024-10-03 14:04] LABS: Partial Thromboplastin Time 21.8 Seconds (22.3-36.8)
--- OUTSIDE RECORDS SUMMARY | 2024-10-03 14:32 | XMS_ITS | Clinical Summary ---
Author Organization [facility] Address [address] [place] [address] Care Team Providers Care Projector Booth Operator Name Role Phone Allie Sinclair PA-C Primary Care Provider [phone] Source Comments [facility],non-owned Affiliates and Associated Physician Practices is amultiple site organization consisting of ambulatory clinics and hospital sitesin [place], [place], [place] and [place]. This disclosure is being madepursuant to the Care Everywhere program and may not contain all information available regarding this patient. Last updated 18.[facility] Allergies Active Allergy Reactions Criticality Noted Date Comments Artificial Sweeteners Diarrhea Medium 07/26/2022 Aspartame Diarrhea Medium 07/26/2022 Morphine Other High 09/10/2023 Pt had bad experience: Acute drug intoxication - called EMS, almost had to complete temporary HD - went to [facility] Medications * Be aware that medications may not be up to date on this document. Alwaysverify current medications with the patient. Medication Sig Dispensed Refills Start Date End Date Status atorvastatin (Lipitor) 40 MG tablet Take 1 (one) tablet by mouth once daily 01/28/2022 Active aspirin (Aspirin) 81 MG chew tabletIndications :Ischemic Stroke Take 1 (one) tablet by mouth once daily Reasons: Stroke Due To Limited Blood Flow 30 tablet 3 07/11/2022 Active sertraline (Zoloft) 100 MG tablet Take 1 (one) tablet by mouth once daily 30 tablet 2 08/06/2022 Active insulin glargine (Lantus/Semglee) 100 units/mL pen Inject 12 (twelve) Units subcutaneously at bedtime 3 mL 1 08/05/2022 Active Additional Information Patient taking differently: 20 UnitsSubcutaneous AT BEDTIME, Reported on 09/10/2023 midazolam (Nayzilam) 5 MG/0.1ML nasal spray Frannie 0.1 mL into the nose as needed for Seizures Lasting longer than 5 minutes. Can administer second dose in other nostril if seizure continues after 10 minutes. 4 Each 5 09/04/2022 Active Additional Information Patient not taking.Reported on 11/07/2022 Cholecalciferol 1.25 MG (51446 UT) cholecalciferol (vitamin D3) 1,250 mcg (50,000 unit) capsule TAKE 1 CAPSULE BY MOUTH EVERY WEEK WITH FOOD Active saline nasal spray ([place]; Baby [place]) 0.65 % nasal spray Frannie 1 (one) spray to 2 (two) sprays into each nostril every 2 hours as needed for Dry Nose 12/04/2022 Active polyethylene glycol 3350 (Miralax) 17 g packet Take 17 (seventeen) g by mouth once daily as needed for Constipation 12/04/2022 Active Additional Information Patient not taking.Reported on 09/10/2023 Farxiga 10 MG tablet Take 1 (one) tablet by mouth every morning 07/07/2023 Active Blood Glucose Monitoring Suppl ([employer] Verio Flex System) w/Device KIT USE TO CHECK BLOOD SUGAR THREE TIMES DAILY 05/04/2023 Active amLODIPine (Norvasc) 10 MG tablet Take 1 (one) tablet by mouth every morning 07/21/2023 Active fenofibrate (Lofibra) 160 MG tablet TAKE 1 TABLET BY MOUTH EVERY DAY WITH MEALS 08/17/2023 Active [employer] Verio test strip USE TO CHECK BLOOD SUGAR TWICE DAILY 05/05/2023 Active Lancets (1CLICKTOUCH DELICA PLUS 33G EXTRA FINE LANCET) USE TO TEST BLOOD SUGAR TWICE DAILY 05/13/2023 Active levETIRAcetam (Keppra) 500 MG tablet Take 1 (one) tablet by mouth 2 times daily 08/14/2023 Active levETIRAcetam (Keppra) 1000 MG tablet Take 2 (two) tablets by mouth 2 times daily 04/10/2023 Activ e Tradjenta 5 MG tablet Take 1 (one) tablet by mouth every morning 08/11/2023 Active miconazole (Micatin) 2 % cream APPLY TOPICALLY TO THE AFFECTED AREA EVERY 12 HOURS 12/16/2022 Active miconazole (Micatin) 2 % cream APPLY TOPICALLY TO THE AFFECTED AREA EVERY 12 HOURS Active Polyethylene Glycol 3350 MIX 17 GRAMS IN 6-8 OUNCES OF LIQUID AND DRINK DAILY Active metoprolol tartrate IR (Lopressor) 25 MG tablet Take 1 (one) tablet by mouth every 12 hours 01/30/2023 Active oxyCODONE, immediate release, (Roxicodone) 5 MG tabletIndications :Flexion contractures Take 1 (one) tablet by mouth every 6 hours as needed for Pain 30 tablet 09/18/2023 Active Active Problems Problem Noted Date Diagnosed Date Wrist drop, acquired, left 10/22/2022 Allergic rhinitis 10/09/2022 09/11/2023 Carpal tunnel syndrome 10/09/2022 Gallstone 10/09/2022 09/11/2023 History of anemia due to vitamin B12 deficiency 10/09/2022 09/11/2023 Migraine 10/09/2022 09/11/2023 Neck pain 10/09/2022 09/11/2023 Plantar fasciitis 10/09/2022 09/11/2023 Shoulder pain 10/09/2022 09/11/2023 Gastrointestinal hemorrhage associated with duod enal ulcer 09/23/2022 Closed supracondylar fracture of humerus 023 09/11/2023 Duodenal ulcer 08/27/2022 09/11/2023 Swelling of both lower extremities 08/27/2022 09/11/2023 Atrial fibrillation 08/26/2022 09/11/2023 Cellulitis of left upper arm 08/09/2022 Overview (09/11/2023): Last Assessment & Plan: Has erythema, warmth with more drainage. Will start on amoxicillin 500 mg b.i.d. x5 days, doxycycline 100 mg b.i.d. x5 days, started on 08/09/22. Continue pain management with Tylenol 650 Q 6. Continue wound care. Moderate vascular dementia w ithout behavioral disturbance, psychotic disturbance, mood disturbance, or anxiety 08/09/2022 Overview (09/11/2023): Last Assessment & Plan: Patient is pleasantly confused. No behaviors. Slums . Continue Zoloft 100 mg daily. Continue supportive care. Patient need supervision and care after discharge Acute blood loss anemia 08/07/2022 09/11/19 Overview (09/11/2023): Last Assessment & Plan: 2/2 GIB (gastric, duodenal ulcers). Received blood transfusions. Hold NSAIDs, anticoagulants. CBC check a.m. Gastrointestinal hemorrhage with melena 08/07/1909/11/2023 Overview (09/11/2023): Last Assessment & Plan: Patient was started on Eliquis for AFib, followed by acute blood loss anemia. Home med Plavix, Eliquis placed on hold. EGD done showed multiple gastric and duodenal ulcers. Status post blood transfusions. H pylori negative. Denies any melena or GI bleed now. Continue pantoprazole 40 mg b.i.d.. Avoid NSAIDs, AC till follow-up with GI. Hemorrhagic shock 07/22/2022 Mood disorder 07/22/2022 Endotracheally intubated 07/22/2022 Hyperkalemia 07/22/2022 GI bleed 07/21/2022 Anemia 07/21/2022 Obesity, Class II, BMI 35-39.9 07/12/2022 Hyperglycemia due to type 2 diabetes mellitus Paroxysmal atrial fibrillati on with rapid ventricular response 07/12/2022 Overview (09/11/2023): Last Assessment & Plan: Patient developed paroxysmal AFib while inpatient, was started on metoprolol 25 mg b.i.d. and Eliquis 5 mg b.i.d., which later placed on hold due to GI Last Assessment & Plan: Patient developed paroxysmal AFib while inpatient, was started on metoprolol 25 mg b.i.d. and Eliquis 5 mg b.i.d., which later placed on hold due to GI Tachycardia 07/11/2022 Acute metabolic encephalopathy 07/08/2022 H/O: CVA (cerebrovascular accident) 07/08/2022 Altered mental status, unspe cified altered mental status type 07/07/2022 LASHONDA (acute kidney injury) 07/07/2022 Closed fracture of shaft of left humerus with routine healing 07/07/2022 Overview (09/11/2023): Last Assessment & Plan: Due to fall. Imaging revealed left humeral shaft fracture, complicated with radial nerve palsy. Orthopedic managed conservatively with brace. NWYoly PRADHAN. Pain management with Tylenol 650 Q 6. Patient had follow-up with Dr. Thomas today. Recommended to continue Left arm brace, according to special instructions for placement and cleaning.Pt will be dc today to [facility]. 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 09/11/2023 TIA (transient ischemic attack) 08/27/2021 09/11/2023 Vitamin D deficiency 08/27/2021 09/11/2023 Depressive disorder 08/27/2021 09/11/2023 Overview (09/11/2023): Last Assessment & Plan: Mood currently stable. Continue home med sertraline 100 mg daily. Seizure 10/26/2020 Overview (09/11/2023): Last Assessment & Plan: Patient currently asymptomatic. No seizure episode. Continue home med Keppra 750 mg b.i.d.. Will check Keppra level next labs. History of palpitations 10/08/2020 09/11/19 24 Diverticulosis of colon 10/03/2020 09/11/19 24 Swelling of knee joint 07/09/2020 Need for prophylactic vaccin ation against Streptococcus pneumoniae (pneumococcus) and influenza 05/17/2019 09/11/2023 Unsteady gait 04/28/2019 09/11/2023 Family history of stroke 03/14/2019 024 Hyperlipidemia 03/14/2019 09/11/2023 Overview (09/11/2023): Last Assessment & Plan: Continue Lipitor 40 mg daily, Zetia Last Assessment & Plan: Continue Lipitor 40 mg daily, Zetia Hypomagnesemia 03/14/2019 09/11/2023 Hypertensive disorder 03/08/2019 Overview (09/11/2023): Last Assessment & Plan: Blood pressure and heart rate fluctuates. Continue amlodipine 10 mg, lisinopril 40 mg, metoprolol 25 mg b.i.d. added due to AFib while inpatient. Will hold down 25 mg for now due to elevated creatinine last labs. Monitor blood pressure, adjust meds accordingly. Last Assessment & Plan: Blood pressure and heart rate fluctuates. Continue amlodipine 10 mg, lisinopril 40 mg, metoprolol 25 mg b.i.d. added due to AFib while inpatient. Will hold down 25 mg for now due to elevated creatinine last labs. Monitor blood pressure, adjust meds accordingly. Pain in joint of right shoulder 10/18/2018 09/11/2023 Encounter for screening for malignant neoplasm o f colon 01/15/2018 09/11/2023 Arthritis 01/15/2018 09/11/2023 Hypokalemia 01/15/2018 09/11/2023 Obstructive sleep apnea syndrome 10/12/2016 09/11/2023 Contact dermatitis 05/21/2016 09/11/2023 Type 2 diabetes mellitus wit h other diabetic kidney complication 04/28/2016 Overview (09/11/2023): Last Assessment & Plan: A1c 6.6 a year ago. Continue Lantus 12 units bedtime, Tradjenta 5 mg, glipizide 5 mg. Will check A1c level next labs. Monitor Accu-Cheks Last Assessment & Plan: A1c 6.6 a year ago. Continue Lantus 12 units bedtime, Tradjenta 5 mg, glipizide 5 mg. Will check A1c level next labs. Monitor Accu-Cheks Stage 3a chronic kidney disease 04/28/2016 09/11/2023 Overview (09/11/2023): Last Assessment & Plan: Baseline creatinine around 1. Was elevated while inpatient. Will hold chlorthalidone now, till BMP results. If creatinine elevated may consider holding lisinopril as well. Avoid nephrotoxic drugs. Monitor renal function Secondary hyperparathyroidism of renal origin 09/11/2023 Tuberculosis 11/17/1966 09/11/2023 Resolved Problems Problem Noted Date Diagnosed Date Resolved Date Acute urinary tract infection 10/09/2022 09/11/2023 09/25/2023 Social History Tobacco Use Types Packs/Day Years Used Date Smoking Tobacco: Never Smokeless Tobacco: Never Alcohol Use Standard Drinks/Week Comments Not Currently 0 (1 standard drink = 0.6 oz pur e alcohol) AUDIT-C Answer Date Recorded Q1: How often do you have a drink containing alcohol? Never 11/29/2022 Q2: How many drinks containi ng alcohol do you have on a typical day when you are drinking? Patient does not drink Q3: How often do you have si x or more drinks on one occasion? Never 11/29/2022 Overall Financial Resource Strain (CARDIA) Answe r Date Recorded How hard is it for you to pa y for the very basics like food, housing, medical care, and heating? Not hard at all 11/29/2022 [facility] [place] [facility] Occup[facility] ional [facility] - Occupational Stress Questionnaire Answer Date Recorded Do you feel stress - tense, restless, nervous, or anxious, or unable to sleep at night because your mind is troubled all the time - these days? Not at all 11/29/2022 Hunger Vital Sign Answer Date Recorded Within the past 12 months, y ou worried that your food would run out before you got the money to buy more. Never true 11/30/19 23 Within the past 12 months, t he food you bought just didn't last and you didn't have money to get more. Never true 11/29/2022 PRAPARE - Transportation Answer Date Re corded In the past 12 months, has l ack of transportation kept you from medical appointments or from getting medications? No 11/17 In the past 12 months, has l ack of transportation kept you from meetings, work, or from getting things needed for daily living? No 11/29/2022 Housing Stability Vital Sign Answer Faraz e Recorded In the last 12 months, was t here a time when you were not able to pay the mortgage or rent on time? No 11/29/2022 In the last 12 months, how many places have you lived? 2 11/29/2022 In the last 12 months, was t here a time when you did not have a steady place to sleep or slept in a longterm (including now)? No 11/29/2022 Sex and Gender Information Value Date Recorded Sex Assigned at Not on file Gender Identity Not on file Sexual Orientation Not on file Last Filed Vital Signs Vital Sign Reading Time Taken Comments Blood Pressure 123/68 09/17/2023 3:50 PM ASSOCIATE PROFESSOR OF ANTHROPOLOGY Pulse 68 09/17/2023 3:50 PM ASSOCIATE PROFESSOR OF ANTHROPOLOGY Temperature 36.5 C (97.7 F) 09/17/2023 3:27 PM ASSOCIATE PROFESSOR OF ANTHROPOLOGY Respiratory Rate 13 09/17/2023 3:50 PM ASSOCIATE PROFESSOR OF ANTHROPOLOGY Oxygen Saturation 98% 09/17/2023 3:50 PM ASSOCIATE PROFESSOR OF ANTHROPOLOGY Inhaled Oxygen Concentration 25% 07/23/2022 1 0:00 AM ASSOCIATE PROFESSOR OF ANTHROPOLOGY Weight 90.9 kg (200 lb 6.4 oz) 09/17/2023 12:34 PM ASSOCIATE PROFESSOR OF ANTHROPOLOGY Height 170.2 cm (5' 7 ) 09/17/2023 12:34 PM ASSOCIATE PROFESSOR OF ANTHROPOLOGY Body Mass Index 31.39 09/17/2023 12:34 PM ASSOCIATE PROFESSOR OF ANTHROPOLOGY Plan of Treatment Health Maintenance Due Date Last Done Comments BONE DENSITY TESTING 1954 COLOGUARD (AGES 45-75) - COLON CA SCREENING 1954 COLON MONITORING 1954 COLONOSCOPY - COLON CA SCREENING 1954 CT COLONOGRAPHY - COLON CA SCREENING 1954 Colorectal Cancer Screening 1954 FIT - COLON CA SCREENING 1954 FLEX SIG - COLON CA SCREENING 1954 MAMMOGRAM 1954 MEDICARE AWV 12 MONTHS 1954 DTAP/TDAP/TD VACCINES (1 - Tdap) 1973 PNEUMOCOCCAL VACCINE 50+ (1 of 2 - PCV) 1973 ZOSTER VACCINE (1 of 2) 01/14/2004 Respiratory Syncytial Virus (RSV) Vaccine Pt: or over 60 yrs (1 - Risk 60-74 years 1-dose series) 2014 DIABETES RETINOPATHY SCREENING 07/12/2022 DIABETES-FOOT EXAM WITH MONOFILAMENT 07/12/2022 DIABETES-HGB A1C 02/26/2023 11/26/2022, 04/2023, 07/08/2022, Additional history exists DIABETES-SERUM CREATININE 12/05/20232022, 12/03/2022, 12/02/2022, Additional history exists COVID-19 VACCINE ( - 2023- season) 2024 INFLUENZA VACCINE (#1) 2024 , 05/17/2019, 05/11/2017, Additional history exists DEPRESSION SCREENING 07/20/2024 DIABETES - URINE PROTEIN SCREENING 07/20/2024 HEPATITIS C SCREENING Completed 07/24/2022 HEPATITIS B VACCINE Aged Out No longe r eligible based on patient's age to complete this topic HIB VACCINE Aged Out No longer eligi ble based on patient's age to complete this topic HPV VACCINE Aged Out No longer eligi ble based on patient's age to complete this topic MENINGOCOCCAL (Group B) VACCINE SHARED DECISION-MAKING Aged Out No longer eligible based on patient's age to complete this topic MENINGOCOCCAL GROUPS A/C/Y/W VACCINE Aged Out No longer eligible based on patient's age to complete this topic Medical Devices Implanted Type Area Laborer Shaft Sinking Device Identifier Shelf Expiration Date Model / Serial / Lot Parth Bone Void 5cc Dbm Allosync Ptty Implanted:Qty: 2 on 11/25/2022 by Robbie Mccann MD at [facility] Left: Humerus [employer] 04/23/2026 ABS-2011-11 / / Screw 3.5mm 32mm T15 Slf-Tap Lck Tpr Implanted:Qty: 1 on 11/25/2022 by Robbie Mccann MD at [facility] Left: Humerus [employer] [id number] / / Screw 3.5mm 36mm T15 Slf-Tap Lck Tpr Implanted:Qty: 1 on 11/25/2022 by Robbie Mccann MD at [facility] Left: Humerus [employer] [id number] / / Screw 3.5mm 38mm T15 Slf-Tap Lck Tpr Implanted:Qty: 1 on 11/25/2022 by Robbie Mccann MD at [facility] Left: Humerus [employer] [id number] / / Screw 3.5mm 42mm T15 Lck Slf-Tap Tip Tpr Implanted:Qty: 1 on 11/25/2022 by Robbie Mccann MD at [facility] Left: Humerus [employer] [id number] / / Screw 3.5mm 46mm T15 Slf-Tap Lck Tpr Implanted:Qty: 1 on 11/25/2022 by Robbie Mccann MD at [facility] Left: Humerus [employer] [id number] / / Screw 3.5mm 48mm T15 Slf-Tap Lck Tpr Implanted:Qty: 1 on 11/25/2022 by Robbie Mccann MD at [facility] Left: Humerus [employer] [id number] / / Screw 3.5mm 46mm T15 Lck Mldir Nonster Implanted:Qty: 1 on 11/25/2022 by Robbie Mccann MD at [facility] Left: Humerus [employer] [id number] / / Graft Bone Infs Rhbmp-2 Bvn Clgn Lg 8ml Implanted:Qty: 1 on 11/25/2022 by Robbie Mccann MD at [facility] Left: Humerus [employer] 07/20/2024 [id number] / / [id number] Graft Bone Almtr Dbm Canc 5ml Algrf Ptty - [id number] Implanted:Qty: 1 on 11/25/2022 by Robbie Mccann MD at [facility] Left: Humerus [employer] 09/22/2023 [id number] / [id number] / Alps Proximal Humerus Low Plate Left 11 H, 190mm Implanted:Qty: 1 on 11/25/2022 by Robbie Mccann MD at [facility] Left: Humerus [id number] / / Screw 3.5mm 20mm T15 Lopro Nonlock Implanted:Qty: 3 on 11/25/2022 by Robbie Mccann MD at [facility] Left: Humerus [employer] [id number] / / Screw 3.5mm 22mm T15 Nonlock Lopro Implanted:Qty: 1 on 11/25/2022 by Robbie Mccann MD at [facility] Left: Humerus [employer] [id number] / / Screw 3.5mm 24mm T15 Nonlock Lopro Implanted:Qty: 1 on 11/25/2022 by Robbie Mccann MD at [facility] Left: Humerus [employer] [id number] / / Screw 3.5mm 32mm T15 Nonlock Lopro Implanted:Qty: 1 on 11/25/2022 by Robbie Mccann MD at [facility] Left: Humerus [employer] [id number] / / Explanted Type Area Laborer Shaft Sinking Device Identifier Shelf Expiration Date Model / Serial / Lot Screw 3.5mm 36mm T15 Slf-Tap Lck Tpr Explanted:Qty: 1 on 11/25/2022 by Robbie Mccann MD at [facility] Left: Humerus [employer] [id number] / / Screw 3.5mm 48mm T15 Slf-Tap Lck Tpr Explanted:Qty: 2 on 11/25/2022 by Robbie Mccann MD at [facility] Left: Humerus [employer] [id number] / / Wire K 2mm 152mm Top Tray Ss Fx Explanted:Qty: 4 on 11/25/2022 by Robbie Mccann MD at [facility] Left: Humerus [employer] [id number] / / Screw 3.5mm 24mm T15 Nonlock Lopro Explanted:Qty: 1 on 11/25/2022 by Robbie Mccann MD at [facility] Left: Humerus [employer] [id number] / / Procedures Procedure Name Priority Date/Time Associated Diagnosis Comments RENAL FUNCTION PANEL AM Draw 12/04/2022 2:46 AM CDT HEMOGLOBIN A1C Routine 11/26/2022 1:18 AM CDT Other fracture of shaft of left humerus, subsequent encounter for fracture with malunion HEPATITIS SCREEN ACUTE AM Draw 07/24/2022 4:12 AM ASSOCIATE PROFESSOR OF ANTHROPOLOGY from Last 3 Months or Most Recently Relevant to Health Maintenance Results * (ABNORMAL) RENAL FUNCTION PANEL (12/04/2022 2:46 AM CDT) BUN 7 7 - 26 mg/dL 12/04/2022 4:03 AM [facility] Creatinine 0.98(H) 0.56 - 0.96 mg/dL 12/04/2022 4:03 AM [facility] Sodium 149(H) 136 - 145 mmol/L 12/04/2022 4:03 AM [facility] Potassium 4.4 3.5 - 4.5 mmol/L 12/04/2022 4:03 AM [facility] Chloride 112(H) 98 - 107 mmol/L 12/04/2022 4:[address] [facility] CO2 18(L) 22 - 29 mmol/L 12/04/2022 4:[address] [facility] Glucose 155(H) 70 - 115 mg/dL 12/04/2022 4:[address] [facility] Albumin 2.6(L) 3.4 - 5.0 g/dL 12/04/2022 4:03 AM [facility] Calcium 9.0 8.4 - 10.2 mg/dL 12/04/2022 4:03 AM [facility] Phosphorus 3.7 2.9 - 5.1 mg/dL 12/04/2022 4:03 AM [facility] Anion Gap 23(H) 8 - 18 12/04/2022 4:03 AM [facility] BUN/Creatinine Ratio 7 7 - 23 12/04/2022 4:03 AM CDT [facility] Osmolality Calculated 309(H) 270 - 300 mOsm/kg 12/04/2022 4:03 AM T [facility] eGFR by CKD-EPI 63(L) >=90 mL/min/1.7 3 m2 12/04/2022 4:03 AM T [facility] Blood BLOOD SPECIMEN / Unknown Lab Venipuncture / Unknown 12/04/2022 2:46 AM CDT 12/04/2022 3:24 AM CDT Blaine Campo MD LAB - CHEMISTRY ALEXEI FREEMAN Performing Organization Address City/[facility]/ZIP Co de Phone Number [address] [address], [facility] [phone] * (ABNORMAL) HEMOGLOBIN A1C (11/26/2022 1:18 AM CDT) Hemoglobin A1c 9.1(H) <=5.6 % 11/26/2022 1:26 PM [facility] Estimated Average Glucose 214 mg/dL 11/26/2022 1:26 PM [facility] Comment: HbA1c Interpretation: Normal : < 5.7% Pre-diabetes: 5.7-6.4% Diabetes: Equal to or greater than 6.5% Test results diagnostic of diabetes should be repeated for confirmation. Treatment target values recommended by ADA and other clinical organizations should be used to evaluate metabolic control in patients. Reference: [place] [employer] Association, Standards of Care in Diabetes -2020 In patients 70 years and older consider HbA1c target range of 7.0-7.5% (Reference: Cody Garcia et al. JAMDA. 2012) The Sebia assay for the measurement of HbA1c is a National Glycohemoglobin Standardization Program (NGSP) certified method. Blood BLOOD SPECIMEN / Unknown Lab Venipuncture / Unknown 11/26/2022 1:18 AM CDT 11/26/2022 1:26 AM CDT Robbie Mccann MD LAB - CHEMISTRY SOCORRO CASTILLO [facility] [address] [place] [id number], [facility] [phone] * HEPATITIS SCREEN ACUTE (07/24/2022 4:12 AM ASSOCIATE PROFESSOR OF ANTHROPOLOGY) Hepatitis A Virus Antibody IgM Non-react bartolome Non-reac tive 07/24/2022 5:11 AM ASSOCIATE PROFESSOR OF ANTHROPOLOGY [facility] Hepatitis B Virus Surface Antigen Non-react bartolome Non-reac tive 07/24/2022 5:11 AM ASSOCIATE PROFESSOR OF ANTHROPOLOGY [facility] Hepatitis B Core Virus Antibody IgM Non-react bartolome Non-reac tive 07/24/2022 5:11 AM ASSOCIATE PROFESSOR OF ANTHROPOLOGY [facility] Hepatitis C Antibody Non-react bartolome Non-reac tive 07/24/2022 5:11 AM [facility] Comment:Hepatitis C Antibody screen indicates no serologic evidence of past or current infection with Hepatitis C Virus. Patients with unexplained liver disease who are immunocompromised or suspected of having acute Hepatitis C infection may benefit from Nucleic Acid Test (CHA) for Hepatitis C Viral RNA to confirm Hepatitis C status. Blood BLOOD SPECIMEN / Unknown Venipuncture / Unknown 07/24/2022 4:12 AM ASSOCIATE PROFESSOR OF ANTHROPOLOGY 07/24/2022 4:37 AM ASSOCIATE PROFESSOR OF ANTHROPOLOGY Sarabjit Gutierrez MD LAB - CHEMISTRY ORDERABLES [facility] [address] [place] [address], [facility] [phone] from Last 3 Months or Most Recently Relevant to Health Maintenance Advance Directives Documents on File Type Date Recorded Patient [employer] Adv Directive/Living Will/POA 08/01/2022 11:56 AM * Full Code (Latest Code Status on File) Date Activated Date Inactivated Comments 11/28/2022 10:29 PM 12/04/2022 11:55 AM * Full Code Date Activated Date Inactivated Comments 11/25/2022 12:22 PM 11/27/2022 1:35 PM * Full Code Date Activated Date Inactivated Comments 07/07/2022 9:28 PM 08/05/2022 4:23 PM Healthcare Agents on File Name Relationship [facility]ia Mohan Daughter Health Care Agent Care Teams Projector Booth Operator Relationship Specialty Start Date End Date Allie Sinclair PA-C [address] [place] [address] PCP - General 07/08/22
--- OUTSIDE RECORDS SUMMARY | 2024-10-03 14:32 | XMS_ITS | Data Portability ---
Author Organization [place] - [facility] OFFICE Address [address] [place] [address] Care Team Providers Care Draw Operator Name Role Phone ELIAS FIGUEROA Primary Care Provider Assessment Encounter Date Assessment Date Assessment LastModified by Organization Details LastModified Time 11/04/2022 11/04/2022 Patient Examined by LAMONT Ramírez, Also interviewed / examined by Supervising physician. Assessment / plan discussed and implemented Encounter scribed by LAMONT Ramírez. Documentation reviewed and approved by supervising physician harper Not available 11/04/2022 12:24:01 Plan of Treatment Reminders Order Date Submit Date Provider Last Modified By Organization Details Last Modified Time Details Appointments None record ed. Lab None record ed. Referral None record ed. Procedures None record ed. Surgeries None record ed. Imaging None record ed. Medication Orders None record ed. Patient TargetsNo targets recorded. Patient Instructions Encounter Date Encounter Id Patient Instructions Last Modified By Organization Details Last Modified Time 10/14/2022 [id number] Exercise advised Low cholesterol diet advised Low sodium diet advised. [email or web address] Not available 10/14/2022 13:23:36 11/04/2022 [id number] Low cholesterol diet advised Low sodium diet advised. [email or web address] Not available 11/04/2022 12:30:17 Reason for Referral None Reported. Results Created Date Observation Date Name Description Value Unit Range Abnormal Flag Note LastModifiedBy Organization Detail LastModifiedTime 10/17/1910/14/2022 elect radha diogr am No observ ation record ed. [email or web address] Not Available 2022 17:37:50 10/29/19 23 10/23/2022 , zhou garg gram No observ ation record ed. [email or web address] Not Available 2022 09:43:59 11/04/19 23 10/21/2022 jerzy can cardi olite stres s test (PROC ) No observ ation record ed. [email or web address] Not Available 2022 09:24:02 Result Notes Documentation Provider Name and Address Organization Details Recorded Time Glucagon, Serum Or Plasma : 11/05/22:Glu 289. [place], [place] - [facility] 11/12/2022 12:47:41 Cmp, Serum Or Plasma : 11/05/22:Na 136,K 3.9,Cl 101,CO2 20,Glu 403,BUN 23,Cr 1.40,ABO/Rh O positive . 11/05/22:WBC 7.8,RBC 4.53,Hgb 12.9,HCT 39.5,PLT 215. 11/05/22:PT 13.7,INR 1.0. [place], [place] - [facility] 11/12/2022 16:11:27 Cmp, Serum Or Plasma : 11/05/22:Na 136,K 3.9,Cl 101,CO2 20,Glu 403,BUN 23,Cr 1.40,ABO/Rh O positive. 11/05/22:WBC 7.8,RBC 4.53,Hgb 12.9,HCT 39.5,PLT 215. 11/05/22:PT 13.7,INR 1.0. [place], [place] - [facility] 11/12/2022 16:14:38 Problems Name Problem SNOMED Code Status Onset Date Resolution Date Notes Provider Name and Address Organization Details Recorded Time Essential hypertension 43054712 Active 2022 Denny [place], [place] - [facility] 18:31:18 Hyperlipidemia 30237503 Active 2022 Denny [place] [facility] 18:31:38 Diabetes mellitus 57633623 Active 2022 Denny [place] [facility] 18:31:53 Tuberculosis 39793699 Active 2022 Denny [place] - [facility] 18:32:07 Vitamin D deficiency 81821300 Active 2022 Baldwin [place], [place] - [facility] 3 18:32:23 Hypomagnesemia 292904837 Active 2022 [place] [facility] 3 18:32:33 Hypokalemia 87122828 Active 2022 [place] - [facility] 3 18:32:43 Depressive disorder 03070335 Active 2022 [place] [facility] 3 18:32:50 Migraine 25437884 Active 2022 [place] [facility] 3 18:33:03 Carpal tunnel syndrome 70654021 Active 2022 [place] [facility] 3 18:33:16 Allergic rhinitis 33275570 Active 2022 [place] [facility] 3 18:33:36 Gallstone 891060875 Active 2022 [place] [facility] 3 18:33:55 Renal failure syndrome 05826855 Active 2022 [place] [facility] 3 18:34:09 Acute urinary tract infection 534685828 Active 2022 [place] [facility] 3 18:34:23 Contact dermatitis 59379713 Active 2022 [place] [facility] 3 18:34:38 Arthritis 9899244 Active 2022 [place] [facility] 3 18:34:45 Swelling of knee joint 257623158 Active 2022 [place] [facility] 3 18:35:00 Shoulder pain 26683039 Active 2022 [place] [facility] 3 18:35:16 Neck pain 71058960 Active 2022 [place] [facility] 18:35:26 Plantar fasciitis 600432153 Active 2022 [facility] 18:35:43 Seizure 41510950 Active 2022 Baldwinkenji Vargas null, [facility] 18:35:56 Obstructive sleep apnea syndrome 33073521 Active 2022 [facility] 18:36:03 History of anemia vitamin B12 deficient 204891139 Active 2022 [facility] 18:36:37 Diverticulosis of colon 141583035 Active 2022 [facility] 18:36:57 Problem Notes None recorded. Procedures Surgical History Date Name Laterality Status Provider Name and Address Organization Details Recorded Time arthroscopic procedure completed [facility] 10/08/2022 18:40:15 tonsillectomy completed [facility] 10/08/2022 18:40:23 ligation of fallopian tube completed [facility] 10/08/2022 18:40:33 Brain aneurysm repr simple completed [facility] 10/08/2022 18:40:53 Imaging Results Imaging Date Name Status LastModified by Organization Details LastModified Time 10/14/2022 electrocardiogram completed Informa tion not available 10/16/2022 17:37:50 10/23/2022 US, echocardiogram completed Inform ation not available 10/28/2022 09:43:59 10/21/2022 lexiscan cardiolite stress test (PROC) completed Information not available 11/03/2022 09:24:02 Procedure Notes None recorded. Medical Equipment None Reported. Allergies No known drug allergies Medications Name Sig Start Date Stop Date Status Note LastModified by Organization Details LastModified Time atorvastati n 40 mg tablet Take 1 tablet every day by oral route. active Not Available Not Available No t Available levetiracet am 500 mg tablet TAKE 1 AND 1/2 TABLETS BY MOUTH EVERY 12 HOURS 11/04 completed Not Available Not Available Not Available sucralfate 1 gram tablet TAKE 1 TABLET BY MOUTH FOUR TIMES DAILY active Not Available Not Available No t Available sertraline 100 mg tablet Take 1 tablet every day by oral route. active Not Available Not Available No t Available Plavix 75 mg tablet Take 1 tablet every day by oral route. active Not Available Not Available No t Available levetiracet am 250 mg tablet Take 2 tablets twice a day by oral route. active Not Available Not Available No t Available amlodipine 10 mg tablet Take 1 tablet every day by oral route. active Not Available Not Available No t Available cephalexin 500 mg capsule TAKE 1 CAPSULE BY MOUTH EVERY 6 HOURS AFTER MEALS FOR 10 DAYS active Not Available Not Available No t Available pantoprazol e 40 mg tablet,jose yed release Take 1 tablet every day by oral route. active Not Available Not Available No t Available promethazin e 25 mg tablet Take 1 tablet twice a day by oral route. active Not Available Not Available No t Available metoprolol tartrate 50 mg tablet Take 1 tablet twice a day by oral route. active Not Available Not Available No t Available oxybutynin chloride ER 5 mg tablet,exte nded release 24 hr TAKE 1 TABLET BY MOUTH EVERY DAY AFTER MEALS active Not Available Not Available No t Available hydroxyzine HCl 25 mg tablet TAKE 1 TABLET BY MOUTH EVERY 6 HOURS NEEDED FOR ITCHING 11/04 completed Not Available Not Available Not Available levetiracet am 750 mg tablet TAKE 1 TABLET BY MOUTH TWICE DAILY 11/04 completed Not Available Not Available Not Available lisinopril 5 mg tablet Take 1 tablet every day by oral route. active Not Available Not Available No t Available hydrochloro thiazide 25 mg tablet Take 1 tablet every day by oral route. active Not Available Not Available No t Available polyethylen e glycol 3350 17 gram/dose oral powder MIX 17 GRAMS IN 6-8 OUNCES OF LIQUID AND DRINK DAILY active Not Available Not Available No t Available lisinopril 40 mg tablet 11/04 completed Not Available Not Available Not Available doxycycline hyclate 100 mg tablet TAKE 1 TABLET BY MOUTH EVERY 12 HOURS UNTIL ALL TAKEN 11/04 completed Not Available Not Available Not Available glipizide 5 mg tablet Take 1 tablet twice a day by oral route. active Not Available Not Available No t Available ezetimibe 10 mg tablet TAKE 1 TABLET BY MOUTH EVERY MORNING active Not Available Not Available No t Available metoprolol tartrate 25 mg tablet TAKE 1 TABLET BY MOUTH EVERY 12 HOURS 10/14 completed Not Available Not Available Not Available potassium chloride active Not Available Not Available Not Available levetiracet am 1,000 mg tablet TAKE 1 TABLET BY MOUTH EVERY 12 HOURS DIRECTED 11/04 completed Not Available Not Available Not Available Januvia 100 mg tablet TAKE 1 TABLET BY MOUTH EVERY MORNING active Not Available Not Available No t Available cholecalcif lula (vitamin D3) 1,250 mcg (50,000 unit) capsule TAKE 1 CAPSULE BY MOUTH EVERY WEEK WITH FOOD active Not Available Not Available No t Available Lantus Solostar U-100 Insulin 100 unit/mL (3 mL) subcutaneou s pen ADMINISTE R 12 UNITS UNDER THE SKIN EVERY NIGHT AT BEDTIME active Not Available Not Available No t Available Toujeo SoloStar U-300 Insulin 300 unit/mL (1.5 mL) subcutaneou s pen INJECT 12 UNIT UNDER THE SKIN DIRECTED EVERY NIGHT AT BEDTIME. active Not Available Not Available No t Available TRUEplus Pen Needle 32 gauge x 5/32 USE DIRECTED WITH INSULIN ONCE A DAY active Not Available Not Available No t Available Nayzilam 5 mg/spray (0.1 mL) nasal spray active Not Available Not Available Not Available Vitals Date Recorded Body height Body mass index (BMI) Body weight Heart rate Respiratory rate Oxygen saturation Oxygen saturation in Arterial blood by Pulse oximetry Systolic blood pressure Diastolic blood pressure Provider Name and Address Organization Details Last Updated DateTime 3 170.18 cm 34.8 kg/m2 460765. 51 g 75 /min 16 /min 94 % 94 % 132 mm[Hg] 84 mm[Hg] Gilberto Carreon [facility] 3 13:13:32 Date Recorded Body height Body mass index (BMI) Body weight Heart rate Oxygen saturation Oxygen saturation in Arterial blood by Pulse oximetry Systolic blood pressure Diastolic blood pressure Provider Name and Address Organization Details Last Updated DateTime 3 170.18 cm 33.9 kg/m2 10168.1 1 g 85 /min 99 % 99 % 130 mm[Hg] 80 mm[Hg] Zuly Alexander [facility] 3 12:05:28 Social History None recorded. Functional Status None recorded. Mental Status None recorded. Family History Relationship Description Onset Age of this Age Resolved Age Notes LastModified by Organization Details LastModified Time Father Malignant neoplasm of urinary bladder 70 [email or web address] Not available 2022 18:37:38 Mother Kidney disease 55 [email or web address] Not available 2022 18:37:57 Mother Hypertensive disorder hmesto Not available 2022 18:38:08 Mother Cerebrovascu lar accident hmesto Not available 18:38:18 Maternal Grandfather Diabetes mellitus [email or web address] Not available 2022 18:38:29 Medical History No medical history recorded. Gynecological HistoryNo gynecological history recorded. Obstetrics History GPAL:G 0 P 0 0 0 0 Immunizations Vaccine Type Date Status Note Provider Nam e and Address Organization Details Recorded Time SARS-COV-2 (COVID-19) vaccine, UNSPECIFIED 1 completed [place] - [facility] 10/08/2022 18:28:53 SARS-COV-2 (COVID-19) vaccine, UNSPECIFIED 1 completed [place] [facility] 10/08/2022 18:29:13 influenza nasal, unspecified formulation 1 completed [place] [facility] 10/08/2022 18:29:29 influenza nasal, unspecified formulation 9 completed [place] [facility] 10/08/2022 18:29:44 influenza nasal, unspecified formulation 7 completed [place] [facility] 10/08/2022 18:29:57 influenza nasal, unspecified formulation 6 completed [place] [facility] 10/08/2022 18:30:16 influenza nasal, unspecified formulation 5 completed [place] [facility] 10/08/2022 18:30:33 influenza nasal, unspecified formulation 4 completed [place] [facility] 10/08/2022 18:30:44 pneumococcal polysaccharide PPV23 10/29/201 9 completed Baldwin [place] - [facility] 10/08/2022 18:31:03 Past Encounters Encounter ID Performer Location Encounter Start Date Encounter Closed Date Diagnosis/Indication Diagnosis SNOMED-CT Code Diagnosis ICD10 Code Diagnosis Note [id number] Juwan Newton MD [facility] OFFICE [address] [place] [address] 10/14/2022 12:43:23 10/14/2022 13:26:45 Essential hypertension 88275534 I10 with fair control Hyperlipidemia 10870216 E78.5 Needs to keep LDL less than 70, and HDL more than 40 Will get lipid profile results from PCP Electrocar diogram abnormal 140982370 R94.31 Lexiscan Myoview stress test, pt can not walk. Has known coronary artery disease, with atypical symptoms now Chronic di astolic heart failure 405635461 I50.32 Obtain echo to evaluate for structural /functiona l disease. Edema of l ower extremity 397323835 R60.0 Obtain echo to evaluate for structural /functiona l disease. Pre-surger y evaluation 515169290 Z01.818 Lexiscan Myoview stress test, pt can not walk. Has known coronary artery disease, with atypical symptoms now, the patient is not able to walk on treadmill [id number] BOB SIMONFENG [facility] OFFICE [address] [place] [address] 11/04/2022 11:12:20 11/04/2022 12:35:12 Dyspnea on exertion 84345490 R06.09 US, echocardio gramLV chamber size is normal. LV wall thickness is moderately increased. The estimated left ventricle ejection fraction is 55-60% (normal). LV relaxation is impaired. Left Atrium chamber is mildly dilated. Right Atrium chamber is mildly dilated. The aortic valve is mildly calcified. There is mild aortic root calcificat ion. There is a dense posterior mitral annular calcificat ion. There is mild to moderate triscupid regurgitat ion. Mild elevation of estimated RV systolic pressure. Estimated RVSP systolic pressure is 45 mmHg. The inferior vena cava is not well visualized . Atypical chest pain 1025 16558 R07.89 she has a positive stress test The patient will be scheduled for left heart catheteriz ation, with coronary angiogram, and possible PTCA/Stent . The procedure was discussed with the patient, and risks, benefits, and alternativ e options were explained. The patient was given informatio n about heart catheteriz ation and interventi onal procedures . The patient agrees to proceed. Dyslipidemia 567857765 E 78.5 continue with lipitor 40 mg daily Obstructiv e sleep apnea syndrome 68682973 G47.33 she has sleep study previously but it was mild per patient Essential hypertension 51463202 I10 with fair control Pre-surger y evaluation 174975778 Z01.818 with positive stress testThe patient will be scheduled for left heart catheteriz ation, with coronary angiogram, and possible PTCA/Stent . The procedure was discussed with the patient, and risks, benefits, and alternativ e options were explained. The patient was given informatio n about heart catheteriz ation and interventi onal procedures . The patient agrees to proceed. Paroxysmal atrial fibrillation 731506564 I48.0 in sinus rhythm todayshe is not on blood thinner nor aspirin Health Concerns Section Related Observation LastModified by Organization Detai ls LastModified Time None Recorded Concern Status LastModified by Organization Details LastModified Time None Recorded Advance Directives Directive None Recorded Payers Encounter Date Sequence Insurance Name Policy Number Policy Shepard Covered Member ID Shepard Member ID Guarantor Name 10/14/2022 1 [place] Kerline Martin [id number] Kerline Martin 10/14/2022 2 [place] [facility] Kerline Martin [id number] Kerline Martin 11/04/2022 1 [place] Kerline Martin [id number] Kerline Martin 11/04/2022 2 [place] [facility] Kerline Martin [id number] Kerline Martin Notes Date Note Type Note Provider Name and Address Organization Details Recorded Time 10/14/2022 text/html 10/14/22CC: dysp jose on exertionKerline MARTIN is a 59 years-old white Female with h/o Hypertension , Hyperlipidemia and Diabetes mellitus was referred for cardiac evaluation She is not active due to Shortness of breath, and arthritisDenies chest pain.Denies shortness of breath at rest. Has mild dyspnea on exertion.No orthopnea. No PNDs.Has heart palpitations.Denies dizziness. Denies syncope or near syncope.No ankle or leg edema.No major bleeding events.No reported side effects from medications. Taking medications as prescribed with no missed doses.Denies snoring, daytime somnolence and AM headache. Juwan Newton MD [address] [place], [address], [facility] 10/14/2022 13:24:53 11/04/2022 text/html 10/14/22CC: dysp jose on exertionKerline MARTIN is a 59 years-old white Female with h/o Hypertension , a Fib, Hyperlipidemia and Diabetes mellitus was referred for cardiac evaluation She is not active due to Shortness of breath, and arthritis. She is here for clearance for her humorous surgery next month. She has a positive stress test. She have not done any cath before. She denied chest pain or dyspnea on exertion. Denies chest pain.Denies shortness of breath at rest. Has mild dyspnea on exertion.No orthopnea. No PNDs.Has heart palpitations.Denies dizziness. Denies syncope or near syncope.No ankle or leg edema.No major bleeding events.No reported side effects from medications. Taking medications as prescribed with no missed doses.Denies snoring, daytime somnolence and AM headache. BOB [place] [facility] 11/04/2022 12:47:11 OBGyn Episode No OBEpisode recorded.
--- OUTSIDE RECORDS SUMMARY | 2024-10-03 14:32 | XMS_ITS | Referral Summary ---
Author Organization [facility] [place] [facility] [place] [facility] Address [address] [place] [id number] Care Team Providers Care Bulldogger Name Role Phone Marcelino Gore Primary Care Provider + Allergies Active Allergy Reactions Criticality Noted Date Comments Aspartame Diarrhea Medium 07/26/2022 Morphine Other (See comments) High 09/10/2023 Pt had bad experience: Acute drug intoxication - called EMS, almost had to complete temporary HD - went to [facility] Medications acetaminophen (TYLENOL EXTRA STRENGTH) 500 mg tablet take 2 tablet by oral route every 6 hours as needed 0 0 5 Active atorvastatin (LIPITOR) 40 mg tablet Take 1 tablet (40 mg total) by mouth daily 30 tablet 3 Active Additional Information Patient taking differently:40 mg oralDaily (early AM), Indications: hyperlipidemia, Informant: Self, Reported on 02/25/2024 cholecalciferol (Vitamin D3) 1,000 unit capsuleIndicatio ns:Vitamin D Deficiency Take 1 capsule (1,000 Units total) by mouth daily 30 capsule 3 Active Additional Information Patient taking differently:1,000 Units oralDaily (early AM), Indications: Vitamin D Deficiency, Informant: Self, Reported on 02/25/2024 cyanocobalamin (vitamin B-12) 1,000 mcg tablet Take 1 tablet (1,000 mcg total) by mouth daily 30 tablet 3 Active Additional Information Patient taking differently:1,000 mcg oralDaily (early AM), Indications: Prevention of Vitamin B12 Deficiency, Informant: Self, Reported on 02/25/2024 metoprolol tartrate (LOPRESSOR) 25 mg immediate release tablet Take 1 tablet (25 mg total) by mouth 2 (two) times a day 60 tablet 3 Active Additional Information Patient taking differently:25 mg oral 2 times daily,Indications: hypertension, Informant: Self, Reported on 02/25/2024 sertraline (ZOLOFT) 100 mg tabletIndication s:Anxiety with Depression Take 1 tablet (100 mg total) by mouth daily 30 tablet 3 Active Additional Information Patient taking differently:100 mg oralDaily (early AM), Indications: Anxiety with Depression, Informant: Self, Reported on 02/25/2024 Tradjenta 5 mg tabletIndication s:type 2 diabetes mellitus Take 1 tablet (5 mg total) by mouth audiovisual technician before breakfast 4 Active fenofibrate (TRIGLIDE) 160 mg tabletIndication s:hyperlipidemia Take 1 tablet (160 mg total) by mouth audiovisual technician before breakfast Active dapagliflozin propanediol (FARXIGA) 10 mg tabletIndication s:type 2 diabetes mellitus Take 1 tablet (10 mg total) by mouth audiovisual technician before breakfast 3 Active aspirin 81 mg chewable tabletIndication s:prevention of thrombosis Take 1 tablet (81 mg total) by mouth audiovisual technician before breakfast 2 Active amLODIPine (NORVASC) 10 mg tabletIndication s:hypertension Take 1 tablet (10 mg total) by mouth audiovisual technician before breakfast 8 Active miconazole 2 % cream APPLY TOPICALLY TO THE AFFECTED AREA EVERY 12 HOURS 3 Active insulin glargine 100 unit/mL (3 mL) pen for injectionIndicat ions:DM Inject 25 Units under the skin nightly Active traMADoL (ULTRAM) 50 mg tablet Take 1 tablet (50 mg total) by mouth every 6 (six) hours as needed for pain 20 tablet 4 Active lacosamide (VIMPAT) 100 mg tablet Take 1 tablet (100 mg total) by mouth 2 (two) times a day Active levETIRAcetam (KEPPRA) 750 mg tablet Take 2 tablets (1,500 mg total) by mouth 2 (two) times a day 4 Active Active Problems Problem Noted Date Diagnosed Date [place]-neck deformity of left finger(s) 02/25/2024 Left radial nerve palsy 03/02/2023 Wrist drop, acquired, left 10/22/2022 Acute urinary tract infection 10/09/2022 Allergic rhinitis 10/09/2022 Carpal tunnel syndrome 10/09/2022 Gallstone 10/09/2022 Migraine 10/09/2022 Neck pain 10/09/2022 Plantar fasciitis 10/09/2022 Shoulder pain 10/09/2022 Gastrointestinal hemorrhage associated with duod enal ulcer 09/23/2022 Closed supracondylar fracture of humerus 023 Duodenal ulcer 08/26/2022 Swelling of both lower extremities 08/26/2022 Cellulitis of left upper arm 08/09/2022 Assessment & Plan (08/13/2022 6:43 AM EXTENSION EDUCATOR): Has erythema, warmth with more drainage. Will start on amoxicillin 500 mg b.i.d. x5 days, doxycycline 100 mg b.i.d. x5 days, started on 08/09/22. Continue pain management with Tylenol 650 Q 6. Continue wound care. Assessment & Plan (08/09/2022 6:49 PM EXTENSION EDUCATOR): Has erythema, warmth with more drainage. Will start on amoxicillin 500 mg b.i.d. x5 days, doxycycline 100 mg b.i.d. x5 days. Continue pain management with Tylenol 650 Q 6. Continue wound care. Moderate vascular dementia w ithout behavioral disturbance, psychotic disturbance, mood disturbance, or anxiety 08/09/2022 Assessment & Plan (08/13/2022 6:45 AM EXTENSION EDUCATOR): Patient is pleasantly confused. No behaviors. Slums 16/30. Continue Zoloft 100 mg daily. Continue supportive care. Patient need supervision and care after discharge Assessment & Plan (08/09/2022 6:58 PM EXTENSION EDUCATOR): Patient is pleasantly confused. No behaviors. Slums 16/30. Continue Zoloft 100 mg daily. Continue supportive care. Patient need supervision and care after discharge Closed fracture of shaft of left humerus with routine healing 08/07/2022 Assessment & Plan (08/13/2022 6:42 AM EXTENSION EDUCATOR): Due to fall. Imaging revealed left humeral shaft fracture, complicated with radial nerve palsy. Orthopedic managed conservatively with brace. SHAMIKA PRADHAN. Pain management with Tylenol 650 Q 6. Patient had follow-up with Dr. Thomas today. Recommended to continue Left arm brace, according to special instructions for placement and cleaning.Pt will be dc today to [facility]. Assessment & Plan (08/09/2022 6:51 PM EXTENSION EDUCATOR): Pain overall controlled. Reminded patient that has follow-up with Dr. Thomas 08/11/2022. Daughter to provide transportation. Assessment & Plan (08/07/2022 6:17 AM EXTENSION EDUCATOR): Due to fall. Imaging revealed left humeral shaft fracture, complicated with radial nerve palsy. Orthopedic managed conservatively with brace. SHAMIKA PRADHAN. Pain management with Tylenol 650 Q 6. Patient follow-up with Dr. Thomas on 08/11/22 for repeat imaging and treatment plan Paroxysmal A-fib 08/07/2022 Assessment & Plan (08/13/2022 6:43 AM EXTENSION EDUCATOR): Patient developed paroxysmal AFib while inpatient, was started on metoprolol 25 mg b.i.d. and Eliquis 5 mg b.i.d., which later placed on hold due to GI Assessment & Plan (08/07/2022 6:18 AM EXTENSION EDUCATOR): Patient developed paroxysmal AFib while inpatient, was started on metoprolol 25 mg b.i.d. and Eliquis 5 mg b.i.d., which later placed on hold due to GI Gastrointestinal hemorrhage with melena 08/07/19 Assessment & Plan (08/13/2022 6:46 AM EXTENSION EDUCATOR): Patient was started on Eliquis for AFib, followed by acute blood loss anemia. Home med Plavix, Eliquis placed on hold. EGD done showed multiple gastric and duodenal ulcers. Status post blood transfusions. H pylori negative. Denies any melena or GI bleed now. Continue pantoprazole 40 mg b.i.d.. Avoid NSAIDs, AC till follow-up with GI. Assessment & Plan (08/07/2022 6:32 AM EXTENSION EDUCATOR): Patient was started on Eliquis for AFib, followed by acute blood loss anemia. Home med Plavix, Eliquis placed on hold. EGD done showed multiple gastric and duodenal ulcers. Status post blood transfusions. H pylori negative. Denies any melena or GI bleed now. Continue pantoprazole 40 mg b.i.d.. Avoid NSAIDs, AC till follow-up with GI. Acute blood loss anemia 08/07/2022 Assessment & Plan (08/13/2022 6:43 AM EXTENSION EDUCATOR): 2/2 GIB (gastric, duodenal ulcers). Received blood transfusions. Hold NSAIDs, anticoagulants. CBC check a.m. Assessment & Plan (08/07/2022 6:20 AM EXTENSION EDUCATOR): 2/2 GIB (gastric, duodenal ulcers). Received blood transfusions. Hold NSAIDs, anticoagulants. CBC check a.m. Acute kidney injury superimposed on chronic kidn ey disease 08/07/2022 Assessment & Plan (08/13/2022 6:45 AM EXTENSION EDUCATOR): Baseline creatinine around 1. Was elevated while inpatient. Will hold chlorthalidone now, till BMP results. If creatinine elevated may consider holding lisinopril as well. Avoid nephrotoxic drugs. Monitor renal function Assessment & Plan (08/07/2022 6:30 AM EXTENSION EDUCATOR): Baseline creatinine around 1. Was elevated while inpatient. Will hold chlorthalidone now, till BMP results. If creatinine elevated may consider holding lisinopril as well. Avoid nephrotoxic drugs. Monitor renal function Endotracheally intubated 07/22/2022 Hemorrhagic shock 07/22/2022 Hyperkalemia 07/22/2022 Mood disorder 07/22/2022 Anemia 07/21/2022 GI bleed 07/21/2022 Hyperglycemia due to type 2 diabetes mellitus Obesity, Class II, BMI 35-39.9 07/12/2022 Tachycardia 07/11/2022 Acute metabolic encephalopathy 07/08/2022 Altered mental status 07/07/2022 Seizure 08/27/2021 Assessment & Plan (08/13/2022 6:45 AM EXTENSION EDUCATOR): Patient currently asymptomatic. No seizure episode. Continue home med Keppra 750 mg b.i.d.. Will check Keppra level next labs. Assessment & Plan (08/07/2022 6:31 AM EXTENSION EDUCATOR): Patient currently asymptomatic. No seizure episode. Continue home med Keppra 750 mg b.i.d.. Will check Keppra level next labs. Depressive disorder 08/27/2021 Assessment & Plan (08/13/2022 6:45 AM EXTENSION EDUCATOR): Mood currently stable. Continue home med sertraline 100 mg daily. Assessment & Plan (08/07/2022 6:31 AM EXTENSION EDUCATOR): Mood currently stable. Continue home med sertraline 100 mg daily. 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 Vitamin D deficiency 08/27/2021 COVID-19 virus infection 08/27/2021 TIA (transient ischemic attack) 08/27/2021 Seizure disorder 10/26/2020 Colitis, acute 10/26/2020 History of palpitations 10/08/2020 Diverticulosis of colon 10/03/2020 Overview (02/19/2024): see CT abdomen 09/28/2020 Swelling of knee joint 07/08/2020 Unsteady gait 04/28/2019 Family history of stroke 03/14/2019 Hyperlipidemia 03/14/2019 Assessment & Plan (08/13/2022 6:44 AM EXTENSION EDUCATOR): Continue Lipitor 40 mg daily, Zetia Assessment & Plan (08/07/2022 6:32 AM EXTENSION EDUCATOR): Continue Lipitor 40 mg daily, Zetia Encounter for screening for cardiovascular disor ders 03/14/2019 Hypomagnesemia 03/14/2019 Palpitations 03/14/2019 Essential hypertension 03/08/2019 Assessment & Plan (08/13/2022 6:44 AM EXTENSION EDUCATOR): Blood pressure and heart rate fluctuates. Continue amlodipine 10 mg, lisinopril 40 mg, metoprolol 25 mg b.i.d. added due to AFib while inpatient. Will hold down 25 mg for now due to elevated creatinine last labs. Monitor blood pressure, adjust meds accordingly. Assessment & Plan (08/07/2022 6:22 AM EXTENSION EDUCATOR): Blood pressure and heart rate fluctuates. Continue amlodipine 10 mg, lisinopril 40 mg, metoprolol 25 mg b.i.d. added due to AFib while inpatient. Will hold down 25 mg for now due to elevated creatinine last labs. Monitor blood pressure, adjust meds accordingly. Cholelithiasis without obstruction 03/08/2019 Overview (02/19/2024): see CT abdomen 03/03/2019 Pain in joint of right shoulder 10/18/2018 Hypokalemia 01/15/2018 Arthritis 01/15/2018 Obstructive sleep apnea syndrome 10/12/2016 Contact dermatitis 05/21/2016 Chronic kidney disease 04/28/2016 Hypertensive chronic kidney disease with stage 1 through stage 4 chronic kidney disease, or unspecified chronic kidney disease 04/28/2016 Type 2 diabetes mellitus wit h other diabetic kidney complication 04/28/2016 Assessment & Plan (08/13/2022 6:44 AM EXTENSION EDUCATOR): A1c 6.6 a year ago. Continue Lantus 12 units bedtime, Tradjenta 5 mg, glipizide 5 mg. Will check A1c level next labs. Monitor Accu-Cheks Assessment & Plan (08/07/2022 6:26 AM EXTENSION EDUCATOR): A1c 6.6 a year ago. Continue Lantus 12 units bedtime, Tradjenta 5 mg, glipizide 5 mg. Will check A1c level next labs. Monitor Accu-Cheks Secondary hyperparathyroidism of renal origin Stage 3a chronic kidney disease 04/28/2016 Overview (02/19/2024): Last Assessment & Plan: Baseline creatinine around 1. Was elevated while inpatient. Will hold chlorthalidone now, till BMP results. If creatinine elevated may consider holding lisinopril as well. Avoid nephrotoxic drugs. Monitor renal function Tuberculosis 11/17/1967 Overview (02/19/2024): at 13 yrs of age-took medication and after that was fine Immunizations Immunization Administration Dates Next Due Tdap 04/01/2022 Social History Tobacco Use Types Packs/Day Years Used Date Smoking Tobacco: Never Smokeless Tobacco: Never Tobacco Cessation:Counseling Given: Not Answered Alcohol Use Standard Drinks/Week Comments Yes 0 (1 standard drink = 0.6 oz pur e alcohol) AUDIT-C Answer Date Recorded Q1: How often do you have a drink containing alcohol? Never 03/09/2024 Q2: How many drinks containi ng alcohol do you have on a typical day when you are drinking? Patient does not drink Q3: How often do you have si x or more drinks on one occasion? Never 03/09/2024 Personal Safety Answer Date Recorded Have you ever been in or are you currently in a harmful physical or emotional relationship or is someone making you feel afraid or unsafe? Denies 03/09/2024 Comments Unknown Sex and Gender Information Value Date Recorded Sex Assigned at Not on file Legal Sex Female 3:49 AM EXTENSION EDUCATOR Gender Identity Not on file Sexual Orientation Not on file Last Filed Vital Signs Vital Sign Reading Time Taken Comments Blood Pressure 126/55 03/09/2024 2:10 PM CDT Pulse 77 03/09/2024 2:41 PM CDT Temperature 36.4 C (97.5 F) 03/09/2024 1:20 PM CDT Respiratory Rate 22 03/09/2024 2:41 PM CDT Oxygen Saturation 94% 03/09/2024 2:41 PM CDT Inhaled Oxygen Concentration - - Weight 99.8 kg (220 lb) 03/09/2024 10:00 AM CDT Height 170.2 cm (5' 7 ) 03/09/2024 10:00 AM CDT Body Mass Index 34.46 03/09/2024 10:00 AM CDT Plan of Treatment Not on file Procedures Procedure Name Priority Date/Time Associated Diagnosis Comments EGFR STAT 11/05/2022 7:36 AM CDT Preop testing HEMOGLOBIN A1C Routine 08/28/2021 4:53 AM EXTENSION EDUCATOR OCCULT BLOOD, FECAL (FIT) Routine 03/18/2018 8:45 PM CDT TNI WITH LIPID PANEL Routine 11/29/2016 3:21 PM CDT from Last 3 Months or Most Recently Relevant to Health Maintenance Results * eGFR (11/05/2022 7:36 AM CDT) eGFR 41 mL/min/1. 73 m2 [facility]ERA Comment: Interpretive Data Reference Interval Normal >/= 90 mL/min/1.73m2 Mildly decreased* 60 - 89 mL/min/1.73m2 Mildly to moderately decreased 45 - 59 mL/min/1.73m2 Moderately to severely decreased 30 - 44 mL/min/1.73m2 Severely decreased 15 - 29 mL/min/1.73m2 Kidney Failure < 15 mL/min/1.73m2 *Relative to young adult level Estimated glomerular filtration rate is determined by the 2020 CKD-EPI equation recommended by the National Kidney Foundation (A Unifying Approach to GFR Estimation: Recommendations of the NKF-ASK Task Force on Reassessing the Inclusion of Race in Diagnosing Kidney Disease, JASN 2020). The CKD-EPI equation should not be used for patients with unstable renal function and has not been validated in children and those over 70. Current interpretive data was last reviewed 2021. Blood 11/05/2022 7:36 AM CDT 11/05/2022 7:41 AM CDT us Juwan Newton MD LAB BLOOD ORDERABLES Final Re sult [facility] [address] [facility] Department [place] [address] * (ABNORMAL) Hemoglobin A1c (08/28/2021 4:53 AM EXTENSION EDUCATOR) [facility] Hgb A1C 6.6(H) 4.0 - 5.6 % BLAYNE Comment:Testing performed by : [address] [address] Estimated Average Glucose 143 mg/dL BLAYNE Comment: The ADA recommends reporting an estimated Average Glucose (eAG) with all Hemoglobin A1c results using the equation derived from a study of 507 normal and diabetic adults. Minority populations were underrepresented and children were not included. (Diabetes Care 31:4202-5897, 2008). The eAG is not equivalent to a fasting glucose. Testing performed by: [facility], [address] [place] [address]., [id number] Blood 08/28/2021 4:53 AM EXTENSION EDUCATOR 08/28/2021 5:00 AM EXTENSION EDUCATOR Janet Guan DO LAB BLOOD ORDERABLES Final Re sult [facility] [address] [facility] Department [place] [address] * Occult blood, fecal non neoplasm screening (03/18/2018 8:45 PM CDT) [facility] Stool Occult Blood POSITIVE NEGATIVE 03/18/2018 10:21 PM CDT [facility] HISTORICAL RESULTS 03/18/2018 8:45 PM CDT 03/18/2018 10:08 PM CDT Kassandra Saab NP LAB BODY FLUIDS AND STOOLS ORDER JIM Final Result [facility] HISTORICAL RESULTS * (ABNORMAL) TNI with LIPID PANEL (11/29/2016 3:21 PM CDT) [facility] Troponin I < 0.300 0.000 - 0.300 ng/mL 11/29/2016 3:54 PM CDT [facility] HISTORICAL RESULTS Comment: Reference using GEE Chemiluminescence Negative: Repeat in 4-6 hours as indicated. Triglycerides 124 0 - 199 mg/dL 11/29/2016 3:54 PM CDT [facility] HISTORICAL RESULTS Comment:12 hr pc [facility] mmended for Triglyceride Cholesterol 212(H) 0 - 199 mg/dL 11/29/2016 3:54 PM CDT [facility] HISTORICAL RESULTS Comment: Borderline: 200-239 High Risk: >239 HDL Cholesterol 82(H) 40 - 60 mg/dL 11/29/2016 3:54 PM CDT [facility] HISTORICAL RESULTS Comment: Major Risk < 40 mg/dL Moderate Risk 40-60 mg/dL Negative Risk > 60 mg/dL LDL Cholesterol, Calc 105 0 - 130 mg/dL 11/29/2016 3:54 PM CDT [facility] HISTORICAL RESULTS Comment:High Risk > 159 mg/d L Cholesterol/HDL Ratio 2.6 11/29/2016 3:54 PM T [facility] HISTORICAL RESULTS Comment: Cholesterol / HDL Ratio 3.5:1 or less is desirable. Cholesterol / HDL Ratio greater than 5:1 is considered higher risk for developing heart disease. 11/29/2016 3:21 PM CDT 11/29/2016 3:28 PM CDT Narrative [facility] HISTORICAL RESULTS - 11/29/2016 3:54 PM CDT us Lester Marcelino Mccann MD LAB BLOOD ORDERABLES Final Result [facility] HISTORICAL RESULTS from Last 3 Months or Most Recently Relevant to Health Maintenance Insurance [facility] [address] MEDICARE MEDICARE IDCT IDCT MEDICARE Advance Directives For more information, please contact: [phone] * Full Code (Latest Code Status on File) Date Activated Date Inactivated Comments 11/05/2022 11:01 AM 11/05/2022 5:09 PM Healthcare Agents on File Name Relationship Healthcare Agent Relationsut p Communication Prakash Olson Friend Second Alternate Health Care Agent Care Teams Bulldogger Relationship Specialty Start Date End Date Marcelino Gore PA [address] [place] [id number] PCP - General 09/08/19
--- OUTSIDE RECORDS SUMMARY | 2024-10-03 14:32 | XMS_ITS | Referral Summary ---
Author Organization [facility] Address [address] [place] [address] Care Team Providers Care Employee Benefits Specialist Name Role Phone Allie Sinclair PA-C Primary Care Provider [phone] Source Comments [facility],non-owned Affiliates and Associated Physician Practices is amultiple site organization consisting of ambulatory clinics and hospital sitesin [place], [place], [place] and [place]. This disclosure is being madepursuant to the Care Everywhere program and may not contain all information available regarding this patient. Last updated 18.[facility] Allergies Active Allergy Reactions Criticality Noted Date Comments Artificial Sweeteners Diarrhea Medium 07/26/2022 Aspartame Diarrhea Medium 07/26/2022 Morphine Other High 09/10/2023 Pt had bad experience: Acute drug intoxication - called EMS, almost had to complete temporary HD - went to [facility] Medications * Be aware that [...] 09/10/2023 midazolam (Nayzilam) 5 MG/0.1ML nasal spray [place] 0.1 mL into the nose as needed for Seizures Lasting longer than 5 minutes. Can administer second dose in other nostril if seizure continues after 10 minutes. 4 Each 5 09/04/2022 Active Additional Information Patient not taking.Reported on 11/07/2022 Cholecalciferol 1.25 MG (69964 UT) cholecalciferol (vitamin D3) 1,250 mcg (50,000 unit) capsule TAKE 1 CAPSULE BY MOUTH EVERY WEEK WITH FOOD Active saline nasal spray ([place]ellen; Baby [place]) 0.65 % nasal spray [place] 1 (one) spray to 2 (two) sprays [...] morning 07/07/2023 Active Blood Glucose Monitoring Suppl (Neocase Software Verio Flex System) w/Device KIT USE TO CHECK BLOOD SUGAR THREE TIMES DAILY 05/04/2023 Active amLODIPine (Norvasc) 10 MG tablet Take 1 (one) tablet by mouth every morning 07/21/2023 Active fenofibrate (Lofibra) 160 MG tablet TAKE 1 TABLET BY MOUTH EVERY DAY WITH MEALS 08/17/2023 Active Neocase Software Verio test strip USE TO CHECK BLOOD SUGAR TWICE DAILY 05/05/2023 Active Lancets (KalVista PharmaceuticalsTOUCH DELICA PLUS 33G EXTRA FINE LANCET) USE [...] and cleaning.Pt will be dc today to [facility]. 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 Not hard at all 11/29/2022 [employer] [place] of Occupat ional Health - Occupational Stress [...] place to sleep or slept in a half-way (including now)? No 11/29/2022 Sex and Gender Information Value Date Recorded Sex Assigned at Not on file Gender Identity Not on file Sexual Orientation Not on file Last Filed Vital Signs Vital Sign Reading Time Taken Comments Blood Pressure 123/68 09/17/2023 3:50 PM BINGO CHECKER Pulse 68 09/17/2023 3:50 PM BINGO CHECKER Temperature 36.5 C (97.7 F) 09/17/2023 3:27 PM BINGO CHECKER Respiratory Rate 13 09/17/2023 3:50 PM BINGO CHECKER Oxygen Saturation 98% 09/17/2023 3:50 PM BINGO CHECKER Inhaled Oxygen Concentration 25% 07/23/2022 1 0:00 AM BINGO CHECKER Weight 90.9 kg (200 lb 6.4 oz) 09/17/2023 12:34 PM BINGO CHECKER Height 170.2 cm (5' 7 ) 09/17/2023 12:34 PM BINGO CHECKER Body Mass Index 31.39 09/17/2023 12:34 PM BINGO CHECKER Functional Status Functional Status Response Date of Assess ment Is person deaf or have serious hearing difficult y? Yes 12/04/2022 Is person blind or have serious difficulty seein g? No 12/04/2022 Does person have serious dif ficulty walking/climbing stairs? Yes 12/04/2022 Does person have difficulty dressing/bathing? Ye s 12/04/2022 Does person have difficulty doing errands alone? Yes 12/04/2022 Cognitive Status Response Date of Assessm ent Does person have difficulty concentrating/remembering/making decisions? No 12/04/2022 Plan of Treatment Not on file Medical Devices Implanted Type Area Marketing Assistant Manager Device Identifier Shelf Expiration Date Model / Serial / Lot Parth Bone Void 5cc Dbm Allosync Ptty Implanted:Qty: 2 on 11/25/2022 by Robbie Mccann MD at [facility] Left: Humerus [employer] 04/23/2026 ABS-2011-11 / / Screw 3.5mm 32mm T15 Slf-Tap Lck Tpr Implanted:Qty: 1 on 11/25/2022 by Robbie Mccann MD at [facility] Left: Humerus [employer] [id number] / / Screw 3.5mm 36mm T15 Slf-Tap Lck Tpr Implanted:Qty: 1 on 11/25/2022 by Robbie Mccann MD at [facility] Left: Humerus [employer] [id number] / / Screw 3.5mm 38mm T15 Slf-Tap Lck Tpr Implanted:Qty: 1 on 11/25/2022 by Robbie Mccann MD at [facility] Left: Humerus [employer] [id number] / / Screw 3.5mm 42mm T15 Lck Slf-Tap Tip Tpr Implanted:Qty: 1 on 11/25/2022 by Robbie Mccann MD at [facility] Left: Humerus [employer] [id number] / / Screw 3.5mm 46mm T15 Slf-Tap Lck Tpr Implanted:Qty: 1 on 11/25/2022 by Robbie Mccann MD at [facility] Left: Humerus [employer] [id number] / / Screw 3.5mm 48mm T15 Slf-Tap Lck Tpr Implanted:Qty: 1 on 11/25/2022 by Robbie Mccann MD at [facility] Left: Humerus [employer] [id number] / / Screw 3.5mm 46mm T15 Lck Mldir Nonster Implanted:Qty: 1 on 11/25/2022 by Robbie Mccann MD at [facility] Left: Humerus [employer] [id number] / / Graft Bone Infs Rhbmp-2 Bvn Clgn Lg 8ml Implanted:Qty: 1 on 11/25/2022 by Robbie Mccann MD at [facility] Left: Humerus [employer] 07/20/2024 [id number] / / [id number] Graft Bone Almtr Dbm Canc 5ml Algrf Ptty - [id number] Implanted:Qty: 1 on 11/25/2022 by Robbie Mccann MD at [facility] Left: Humerus Recorded [employer] 09/22/2023 [id number] / [id number] / Alps Proximal Humerus Low Plate Left 11 H, 190mm Implanted:Qty: 1 on 11/25/2022 by Robbie Mccann MD at [facility] Left: Humerus [id number] / / Screw 3.5mm 20mm T15 Lopro Nonlock Implanted:Qty: 3 on 11/25/2022 by Robbie Mccann MD at [facility] Left: Humerus [employer] [id number] / / Screw 3.5mm 22mm T15 Nonlock Lopro Implanted:Qty: 1 on 11/25/2022 by Robbie Mccann MD at [facility] Left: Humerus [employer] [id number] / / Screw 3.5mm 24mm T15 Nonlock Lopro Implanted:Qty: 1 on 11/25/2022 by Robbie Mccann MD at [facility] Left: Humerus [employer] [id number] / / Screw 3.5mm 32mm T15 Nonlock Lopro Implanted:Qty: 1 on 11/25/2022 by Robbie Mccann MD at [facility] Left: Humerus [employer] [id number] / / Explanted Type Area Marketing Assistant Manager Device Identifier Shelf Expiration Date Model / Serial / Lot Screw 3.5mm 36mm T15 Slf-Tap Lck Tpr Explanted:Qty: 1 on 11/25/2022 by Robbie Mccann MD at [facility] Left: Humerus [employer] [id number] / / Screw 3.5mm 48mm T15 Slf-Tap Lck Tpr Explanted:Qty: 2 on 11/25/2022 by Robbie Mccann MD at [facility] Left: Humerus [employer] [id number] / / Wire K 2mm 152mm Top Tray Ss Fx Explanted:Qty: 4 on 11/25/2022 by Robbie Mccann MD at [facility] Left: Humerus [employer] [id number] / / Screw 3.5mm 24mm T15 Nonlock Lopro Explanted:Qty: 1 on 11/25/2022 by Robbie Mccann MD at [facility] Left: Humerus [employer] [id number] / / Procedures Procedure Name Priority Date/Time Associated Diagnosis Comments RENAL FUNCTION PANEL AM Draw 12/04/2022 2:46 AM CDT HEMOGLOBIN A1C Routine 11/26/2022 1:18 AM CDT Other fracture of shaft of left humerus, subsequent encounter for fracture with malunion HEPATITIS SCREEN ACUTE AM Draw 07/24/2022 4:12 AM BINGO CHECKER from Last 3 Months or Most Recently Relevant to Health Maintenance Results * (ABNORMAL) RENAL FUNCTION PANEL (12/04/2022 2:46 AM CDT) BUN 7 7 - 26 mg/dL 12/04/2022 4:03 AM [facility] Creatinine 0.98(H) 0.56 - 0.96 mg/dL 12/04/2022 4:03 AM [facility] Sodium 149(H) 136 - 145 mmol/L 12/04/2022 4:03 AM [facility] Potassium 4.4 3.5 - 4.5 mmol/L 12/04/2022 4:03 AM [facility] Chloride 112(H) 98 - 107 mmol/L 12/04/2022 4:03 AM [facility] CO2 18(L) 22 - 29 mmol/L 12/04/2022 4:03 AM [facility] Glucose 155(H) 70 - 115 mg/dL 12/04/2022 4:03 AM [facility] Albumin 2.6(L) 3.4 - 5.0 g/dL 12/04/2022 4:03 AM [facility] Calcium 9.0 8.4 - 10.2 mg/dL 12/04/2022 4:03 AM [facility] Phosphorus 3.7 2.9 - 5.1 mg/dL 12/04/2022 4:03 AM [facility] Anion Gap 23(H) 8 - 18 12/04/2022 4:03 AM [facility] BUN/Creatinine Ratio 7 7 - 23 12/04/2022 4:03 AM [facility] Osmolality Calculated 309(H) 270 - 300 mOsm/kg 12/04/2022 4:03 AM [facility] eGFR by CKD-EPI 63(L) >=90 mL/min/1.7 3 m2 12/04/2022 4:03 AM [facility] Blood BLOOD SPECIMEN / Unknown Lab Venipuncture / Unknown 12/04/2022 2:46 AM CDT 12/04/2022 3:24 AM T Blaine Campo MD LAB - CHEMISTRY ORD ERABLES [facility] [address] [place] [address], [facility] [phone] * (ABNORMAL) HEMOGLOBIN A1C (11/26/2022 1:18 AM CDT) Hemoglobin A1c 9.1(H) <=5.6 % 11/26/2022 1:26 PM [facility] Estimated Average Glucose 214 mg/dL 11/26/2022 1:26 PM [facility] Comment: HbA1c Interpretation: Normal : < 5.7% Pre-diabetes: 5.7-6.4% Diabetes: Equal to or greater than 6.5% Test results diagnostic of diabetes should be repeated for confirmation. Treatment target values recommended by ADA and other clinical organizations should be used to evaluate metabolic control in patients. Reference: [place] Diabetes Association, Standards of Care in Diabetes [...] CDT Robbie Mccann MD LAB - CHEMISTRY ALEXEIE JONATHAN [address] [address], [place] [phone] * HEPATITIS SCREEN ACUTE (07/24/2022 4:12 AM BINGO CHECKER) Pathologist [facility] Hepatitis A Virus Antibody IgM Non-react bartolome Non-reac tive 07/24/2022 5:11 AM BINGO CHECKER [facility] Hepatitis B Virus Surface Antigen Non-react bartolome Non-reac tive 07/24/2022 5:11 AM BINGO CHECKER [facility] Hepatitis B Core Virus Antibody IgM Non-react bartolome Non-reac tive 07/24/2022 5:11 AM [facility] Hepatitis C Antibody Non-react bartolome Non-reac tive 07/24/2022 5:11 AM [facility] Comment:Hepatitis C Antibody screen indicates no serologic evidence of past or current infection with Hepatitis C Virus. Patients with unexplained liver disease who are immunocompromised or suspected of having acute Hepatitis C infection may benefit from Nucleic Acid Test (CHA) for Hepatitis C Viral RNA to confirm Hepatitis C status. Blood BLOOD SPECIMEN / Unknown Venipuncture / Unknown 07/24/2022 4:12 AM BINGO CHECKER 07/24/2022 4:37 AM BINGO CHECKER Sarabjit Gutierrze MD LAB - CHEMISTRY ORDERABLES [address] [address], [place] [phone] from Last 3 Months or Most Recently Relevant to Health Maintenance Advance Directives Documents on File Type Date Recorded Patient [employer] Adv Directive/Living Will/POA 08/01/2022 11:56 AM * Full Code (Latest Code Status on File) Date Activated Date Inactivated Comments 11/28/2022 10:29 PM 12/04/2022 11:55 AM * Full Code Date Activated Date Inactivated Comments 11/25/2022 12:22 PM 11/27/2022 1:35 PM * Full Code Date Activated Date Inactivated Comments 07/07/2022 9:28 PM 08/05/2022 4:23 PM Healthcare Agents on File Name Relationship Healthcare Agent Relationshi p Communication Claudia Mohan Daughter Health Care Agent Care Teams Employee Benefits Specialist Relationship Specialty Start Date End Date Allie Sinclair PA-C [address] [place] [address] PCP - General 07/08/22
--- OUTSIDE RECORDS SUMMARY | 2024-10-03 14:32 | XMS_ITS | Clinical Summary ---
Author Organization [facility] Address [address] [place] [id number] Care Team Providers Care Wellness Director Name Role Phone Allie Sinclair PA-C Primary Care Provider [phone] Allergies Active Allergy Reactions Criticality Noted Date Comments Aspartame Diarrhea 07/26/2022 Morphine Other (see comment) High 09/10/2023 Pt had bad experience: Acute drug intoxication - called EMS, almost had to complete temporary HD - went to [facility] Medications amlodipine 10 MG tablet Take 1 tablet (10 mg total) by mouth daily. 3 10/30/19 18 Active atorvastatin 40 MG tablet Take 1 tablet (40 mg total) by mouth daily. 0 08/31/19 18 Active metoprolol tartrate (LOPRESSOR) 25 MG tablet Take 1 tablet (25 mg total) by mouth every 12 (twelve) hours. 01/31/20 23 Active aspirin 81 MG chewable tablet Chew 1 tablet (81 mg total) by mouth daily. Active fenofibrate 160 MG tablet Take 1 tablet (160 mg total) by mouth daily. Active insulin glargine (BASAGLAR KWIKPEN) 100 UNIT/ML injection (PEN) Inject 20 Units into the skin nightly at bedtime. 18 mL 03/19/20 24 Active lacosamide (VIMPAT) 100 MG TabIndications :Seizure disorder ([facility]) Take 1 tablet (100 mg total) by mouth 2 (two) times daily. 60 tablet 03/19/20 Active FLUoxetine (PROZAC) 10 MG capsule Take 1 capsule (10 mg total) by mouth daily. 05/24/20 Active linaGLIPtin (TRADJENTA) 5 MG tablet Take 1 tablet (5 mg total) by mouth daily. Active levETIRAcetam (KEPPRA) 1000 MG tablet Take 1 tablet (1,000 mg total) by mouth 2 (two) times daily. 60 tablet 05/31/20 Active Senna (SENOKOT) 8.6 MG tablet Take 1 tablet (8.6 mg total) by mouth. Active dapagliflozin (FARXIGA) 10 MG tablet Take 1 tablet (10 mg total) by mouth every morning. 025 Discontinued(Pt . elected to discontinue med) QUEtiapine (SEROQUEL) 25 MG tablet Take 1 tablet (25 mg total) by mouth 2 (two) times daily. 05/10/20 025 Discontinued ciprofloxacin (CIPRO) 250 MG tablet 08/21/19 025 Discontinued(Pt . elected to discontinue med) Active Problems Problem Noted Date Diagnosed Date Confusion 05/26/2024 Acute metabolic encephalopathy 03/15/2024 [place]-neck deformity of left finger(s) 02/25/2024 Obstructive sleep apnea syndrome 10/09/2022 Atrial fibrillation ([facility]) 08/26/2022 Obesity, Class II, BMI 35-39.9 07/12/2022 Paroxysmal atrial fibrillati on with rapid ventricular response ([facility]) 07/12/2022 Overview (02/13/2023): Last Assessment & Plan: Patient developed paroxysmal AFib while inpatient, was started on metoprolol 25 mg b.i.d. and Eliquis 5 mg b.i.d., which later placed on hold due to GI Tachycardia 07/11/2022 H/O: CVA (cerebrovascular accident) 07/08/2022 Altered mental status 07/07/2022 COVID-19 virus infection 08/27/2021 TIA (transient ischemic attack) 08/27/2021 Seizure disorder ([facility]) 10/26/2020 Hyperlipidemia 03/14/2019 Overview (02/13/2023): Last Assessment & Plan: Continue Lipitor 40 mg daily, Zetia Palpitations 03/14/2019 Primary hypertension 03/08/2019 Overview (02/13/2023): Last Assessment & Plan: Blood pressure and heart rate fluctuates. Continue amlodipine 10 mg, lisinopril 40 mg, metoprolol 25 mg b.i.d. added due to AFib while inpatient. Will hold down 25 mg for now due to elevated creatinine last labs. Monitor blood pressure, adjust meds accordingly. Chronic kidney disease 04/28/2016 Type 2 diabetes mellitus wit h other diabetic kidney complication ([facility]) 04/28/2016 Overview (02/13/2023): Last Assessment & Plan: A1c 6.6 a year ago. Continue Lantus 12 units bedtime, Tradjenta 5 mg, glipizide 5 mg. Will check A1c level next labs. Monitor Accu-Cheks Encounters Date Type Department Care Team Description 09/27/2024 11:15 AM CDT Telephone [facility] [address] [place] [address] Deandra Mcghee PA Holter Monitor 09/22/2024 Telephone [facility] - [facility] [address], [address] [place] [phone] Justine Can MD Information 09/20/2024 10:00 AM WEATHERIZATION COORDINATOR Office Visit [facility] [address] [place] [address] Deandra Mcghee PA Follow Up; Atrial Fibrillation 09/20/2024 Telephone [facility] [address], [address] [place] [phone] Justine Can MD Appointment Request; Information 09/20/2024 Travel 08/29/2024 10:20 AM WEATHERIZATION COORDINATOR Office Visit [facility] [address], [address] [place] [phone] Justine Can MD Follow Up 08/29/2024 Travel from Last 3 Months Immunizations Name Administration Dates Next Due COVID-19 Vaccine (Generic) 09/27/2020,09/06/2020 Influenza (Generic) 05/06/2016,04/20/2015,2013 Influenza Adult (Generic) 05/04/2023,,05/17/2019,05/11/2017,08/2015,06/25/2015 Pneumococcal (Pneumovax 23) 05/17/2019 Tdap (Generic) 04/01/2022 Family History Medical History Relation Comments Cancer Father bladder Diabetes Maternal Grandfather Hypertension Mother Kidney Disease Mother hemo Relation Status Comments Father Maternal Grandfather Mother Social History Tobacco Use Types Packs/Day Years Used Date Smoking Tobacco: Never Smokeless Tobacco: Never Tobacco Cessation:Counseling Given: Not Answered Alcohol Use Standard Drinks/Week Comments Not Currently 0 (1 standard drink = 0.6 oz pur e alcohol) socially [facility] [employer] Answer Date Recorded In the past 12 months has e Shyp, gas, oil, or water [employer] threatened to shut off services in your home? No 05/27/2024 Humiliation, Afraid, Rape, a nd Kick questionnaire Answer Date Recorded Within the last year, have y ou been afraid of your partner or ex-partner? Patient unable to answer 05/26/2024 Within the last year, have y ou been humiliated or emotionally abused in other ways by your partner or ex-partner? Patient unable to answer 05/26/2024 Within the last year, have y ou been kicked, hit, slapped, or otherwise physically hurt by your partner or ex-partner? Patient unable to answer 05/26/2024 Within the last year, have y ou been raped or forced to have any kind of sexual activity by your partner or ex-partner? Patient unable to answer 05/26/2024 Overall Financial Resource Strain (CARDIA) Answe r Date Recorded How hard is it for you to pa y for the very basics like food, housing, medical care, and heating? Not hard at all 05/27/2024 PHQ-2 Answer Date Recorded Patient Health Questionnaire-2 Score 0 08/29/2024 Hunger Vital Sign Answer Date Recorded Within the past 12 months, y ou worried that your food would run out before you got the money to buy more. Never true 05/27/20 24 Within the past 12 months, t he food you bought just didn't last and you didn't have money to get more. Never true 05/27/2024 PRAPARE - Transportation Answer Date Re corded In the past 12 months, has l ack of transportation kept you from medical appointments or from getting medications? No 02/2024 In the past 12 months, has l ack of transportation kept you from meetings, work, or from getting things needed for daily living? No 05/27/2024 Housing Stability Vital Sign Answer Faraz e Recorded In the last 12 months, was t here a time when you were not able to pay the mortgage or rent on time? No 05/27/2024 In the past 12 months, how m any times have you moved where you were living? 1 05/27/2024 At any time in the past 12 m [facility], were you homeless or living in a nursing home (including now)? No 05/27/2024 Comments No Sex and Gender Information Value Date Recorded Sex Assigned at Female 09/20/2024 9:45 AM WEATHERIZATION COORDINATOR Legal Sex Female 6:56 PM CDT Gender Identity Not on file Sexual Orientation Not on file Last Filed Vital Signs Vital Sign Reading Time Taken Comments Blood Pressure 146/82 09/20/2024 9:56 AM WEATHERIZATION COORDINATOR Pulse 61 09/20/2024 9:56 AM WEATHERIZATION COORDINATOR Temperature 36.1 C (96.9 F) 08/29/2024 10:39 AM WEATHERIZATION COORDINATOR Respiratory Rate 16 08/29/2024 10:39 AM WEATHERIZATION COORDINATOR Oxygen Saturation 99% 09/20/2024 9:56 AM WEATHERIZATION COORDINATOR Inhaled Oxygen Concentration - - Weight 81.2 kg (179 lb) 09/20/2024 9:56 AM WEATHERIZATION COORDINATOR Height 170.2 cm (5' 7 ) 09/20/2024 9:56 AM WEATHERIZATION COORDINATOR Body Mass Index 28.04 09/20/2024 9:56 AM WEATHERIZATION COORDINATOR Plan of Treatment Upcoming Encounters Date Type Department Care Team (Late st Contact Info) Description 10/11/2024 10:20 AM CDT [facility] [address], [address] [place] [phone] Justine Can MD [address] [place] [address] 03/02/2025 10:20 AM CDT [facility] [address], [address] [place] [phone] Justine Can MD [address] [place] [phone] 04/04/2025 10:30 AM CDT Office Visit [facility] [facility], [place] [address] [place] [address] Jefry Tineo MD [facility]. [address] [place] [address] Health Maintenance Due Date Last Done Comments ASCVD LDL 1954 ASCVD Statin 1954 Colorectal Cancer Screening Colonoscopy (10 Years) 1954 Kidney Health Evaluation 1954 Lipid Panel 1954 Diabetes: Retinopathy Eye Exam 01/14/1972 Mammogram Screening 1994 Zoster Vaccines (1 of 2) 01/14/2004 RSV Immunization or 60+ Years (1 - Risk 60-74 years 1-dose series) 2014 Annual Medicare Wellness Visit 2019 Dexa Scan (General) 2019 Pneumococcal Vaccine: 65+ Years (2 of 2 - PCV) 05/17/2020 05/17/2019 Hemoglobin A1C 02/26/2023 11/26/2022, 11/17, 07/08/2022, Additional history exists COVID-19 Vaccine (3 - season) 2024 09/27/2020, 09/06/2020 Influenza Adult (#1) 2024 05/04/2023, 05/10/2021, 05/17/2019, Additional history exists DTaP, Tdap and Td Vaccines (2 - Td or Tdap) 04/01/2032 04/01/2022 Hepatitis C Completed 07/24/2022 PHQ-2 (Physician [place]) Completed 08/29/2024 Meningococcal B Vaccine Aged Out No l onger eligible based on patient's age to complete this topic Meningococcal Vaccine Aged Out No aidee jayne eligible based on patient's age to complete this topic RSV Immunizations Under 20 Months Aged Out No longer eligible based on patient's age to complete this topic Medical Devices Implanted Type Area Accountant Tax Device Identifier Shelf Expiration Date Model / Serial / Lot Plate Synthes 2.4 Va-Lcp Vlr Dist Radius 6h Hd/3h Shaft Right - [id number] Implanted:Qty: 1 on 11/24/2017 by [facility] Plate Right: Arm SYNTHES 11/24/2017 [id number] / / NA Screw Synthes 2.4 Locking Stardrive 14mm - [id number] Implanted:Qty: 2 on 11/24/2017 by Godwin [facility]ir[facility] at [facility] Screw Right: Arm SYNTHES 11/24/2017 [id number] / / NA Screw Synthes 2.4 Locking Stardrive 16mm - [id number] Implanted:Qty: 1 on 11/24/2017 by Godwin [facility] at [facility] Screw Right: Arm SYNTHES 11/24/2017 [id number] / / NA Screw Synthes 2.4 Locking Stardrive 18mm - [id number] Implanted:Qty: 1 on 11/24/2017 by Godwin [facility]ir[facility] at [facility] Screw Right: Arm SYNTHES 11/24/2017 [id number] / / NA Screw Synthes 2.4 Locking Stardrive 20mm - [id number] Implanted:Qty: 1 on 11/24/2017 by Godwin [facility] at [facility] Screw Right: Arm SYNTHES 11/24/2017 [id number] / / NA Screw Synthes 2.4 Locking Stardrive 18mm - [id number] Implanted:Qty: 1 on 11/24/2017 by Godwin [facility] at [facility] Screw Right: Arm SYNTHES 11/24/2017 [id number] / / NA Screw Synthes 2.7 Cortical Self Tap 14mm - [id number] Implanted:Qty: 1 on 11/24/2017 by Godwin [facility]re MD at [facility] Right: Arm SYNTHES 11/24/2017 [id number] / / NA Screw Synthes 2.7 Cortical Self Tap 12mm - [id number] Implanted:Qty: 2 on 11/24/2017 by Godwin [facility]irre [facility] at [facility] Right: Arm SYNTHES 11/24/2017 [id number] / / NA Explanted Type Area Accountant Tax Device Identifier Shelf Expiration Date Model / Serial / Lot Wire Synthes 1.5mm Jenn 150mm W/Trocar Point - [id number] Implanted:Qty: 1 Explanted:Qty: 1 on 11/24/2017 by Gowdin [facility]re [facility] at [facility] Right: Arm SYNTHES 11/24/2017 [id number] / / NA Procedures Procedure Name Priority Date/Time Associated Diagnosis Comments HEMOGLOBIN, GLYCOSYLATED Routine 11/26/2022 from Last 3 Months or Most Recently Relevant to Health Maintenance Results * HEMOGLOBIN, GLYCOSYLATED (11/26/2022) HGB A1C 9.1 % 11/26/2022 us Default History Genericprovider LABORATORY Final Result from Last 3 Months or Most Recently Relevant to Health Maintenance Insurance MEDICARE MEDICAID Advance Directives Documents on File Type Date Recorded Patient Manager Card Expl anation Advance Directives and Livin g Will 06/01/2024 3:14 PM * Full Code (Latest Code Status on File) Date Activated Date Inactivated Comments 05/26/2024 3:19 PM 05/31/2024 8:06 PM * Full Code Date Activated Date Inactivated Comments 03/15/2024 8:38 AM 03/19/2024 4:15 PM Healthcare Agents on File Name Relationship Healthcare Agent [facility] Communication Claudia GUARDADO Marques Daughter Health Care Agent Estrella (1st Alt) Flach Relative First Alter [facility] Care Agent Care Teams Wellness Director Relationship Specialty Start Date End Date Allie Sinclair PA-C PCP - General PHYSICIAN MASH FILTER OPERATOR 01/29/23
--- OUTSIDE RECORDS SUMMARY | 2024-10-03 14:32 | XMS_ITS | Patient Health Summary ---
Author Organization [facility] Address [address] [place] [address] Care Team Providers Care Conference Interpreter Name Role Phone Allie Sinclair PA-C Primary Care Provider [phone] Note from [facility],non-owned Affiliates and Associated Physician Practices is amultiple site organization consisting of ambulatory clinics and hospital sitesin [place], [place], [place] and [place]. This disclosure is being madepursuant to the Care Everywhere program and may not contain all information available regarding this patient. Last updated 18.[facility] [employer] Allergies * Artificial Sweeteners(Diarrhea) -Medium Criticality * Aspartame(Diarrhea) -Medium Criticality * Morphine(Other) -High Criticality Medications * Be aware that medications may not be up to date on this document. Alwaysverify current medications with the patient. * atorvastatin (Lipitor) 40 MG tablet(Started 01/28/2022) Take 1 (one) tablet by mouth once daily * aspirin (Aspirin) 81 MG chew tablet(Started 07/11/2022) Take 1 (one) tablet by mouth once daily Reasons: Stroke Due To Limited Blood Flow 3 refills by 07/10/2023 * sertraline (Zoloft) 100 MG tablet(Started 08/06/2022) Take 1 (one) tablet by mouth once daily 2 refills by 08/05/2023 * insulin glargine (Lantus/Semglee) 100 units/mL pen(Started 08/05/2022) Inject 12 (twelve) Units subcutaneously at bedtime 1 refill by 08/05/2023 * midazolam (Nayzilam) 5 MG/0.1ML nasal spray(Started 09/04/2022) [place] 0.1 mL into the nose as needed for Seizures Lasting longer than 5 minutes. Can administer second dose in other nostril if seizure continues after 10 minutes. 5 refills by 03/03/2023 * Cholecalciferol 1.25 MG (04539 UT) cholecalciferol (vitamin D3) 1,250 mcg (50,000 unit) capsule TAKE 1 CAPSULE BY MOUTH EVERY WEEK WITH FOOD * saline nasal spray ([place]; Baby [place]) 0.65 % nasal spray(Started 12/04/2022) [place] 1 (one) spray to 2 (two) sprays into each nostril every 2 hours as needed for Dry Nose * polyethylene glycol 3350 (Miralax) 17 g packet(Started 12/04/2022) Take 17 (seventeen) g by mouth once daily as needed for Constipation * Farxiga 10 MG tablet(Started 07/07/2023) Take 1 (one) tablet by mouth every morning * Blood Glucose Monitoring Suppl (Telecardia Verio Flex System) w/Device KIT (Started 05/04/2023) USE TO CHECK BLOOD SUGAR THREE TIMES DAILY * amLODIPine (Norvasc) 10 MG tablet(Started 07/21/2023) Take 1 (one) tablet by mouth every morning * fenofibrate (Lofibra) 160 MG tablet(Started 08/17/2023) TAKE 1 TABLET BY MOUTH EVERY DAY WITH MEALS * Degree Controlsuch Verio test strip(Started 05/05/2023) USE TO CHECK BLOOD SUGAR TWICE DAILY * Lancets (24 Media NetworkTOUCH DELICA PLUS 33G EXTRA FINE LANCET)(Started 05/13/2023) USE TO TEST BLOOD SUGAR TWICE DAILY * levETIRAcetam (Keppra) 500 MG tablet(Started 08/14/2023) Take 1 (one) tablet by mouth 2 times daily * levETIRAcetam (Keppra) 1000 MG tablet(Started 04/10/2023) Take 2 (two) tablets by mouth 2 times daily * Tradjenta 5 MG tablet(Started 08/11/2023) Take 1 (one) tablet by mouth every morning * miconazole (Micatin) 2 % cream(Started 12/16/2022) APPLY TOPICALLY TO THE AFFECTED AREA EVERY 12 HOURS * miconazole (Micatin) 2 % cream APPLY TOPICALLY TO THE AFFECTED AREA EVERY 12 HOURS * Polyethylene Glycol 3350 MIX 17 GRAMS IN 6-8 OUNCES OF LIQUID AND DRINK DAILY * metoprolol tartrate IR (Lopressor) 25 MG tablet(Started 01/30/2023) Take 1 (one) tablet by mouth every 12 hours * oxyCODONE, immediate release, (Roxicodone) 5 MG tablet(Started 09/18/2023) Take 1 (one) tablet by mouth every 6 hours as needed for Pain Active Problems Problem Noted Date Diagnosed Date [...] 09/11/2023 Cellulitis of left upper arm 08/09/2022 Moderate vascular dementia w ithout behavioral disturbance, psychotic disturbance, mood disturbance, or anxiety 08/09/2022 Acute blood loss anemia 08/07/2022 09/11/19 Gastrointestinal hemorrhage with melena 08/07/1909/11/2023 Hemorrhagic shock 07/22/2022 Mood disorder 07/22/2022 Endotracheally intubated 07/22/2022 Hyperkalemia 07/22/2022 GI bleed 07/21/2022 Anemia 07/21/2022 Obesity, Class II, BMI 35-39.9 07/12/2022 Hyperglycemia due to type 2 diabetes mellitus Paroxysmal atrial fibrillati on with rapid ventricular response 07/12/2022 Tachycardia 07/11/2022 Acute metabolic encephalopathy 07/08/2022 H/O: CVA (cerebrovascular accident) 07/08/2022 Altered mental status, unspe cified altered mental status type 07/07/2022 LASHONDA (acute kidney injury) 07/07/2022 Closed fracture of shaft of left humerus with routine healing 07/07/2022 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 09/11/2023 TIA (transient ischemic attack) 08/27/2021 09/11/2023 Vitamin D deficiency 08/27/2021 09/11/2023 Depressive disorder 08/27/2021 09/11/2023 Seizure 10/26/2020 History of palpitations 10/08/2020 09/11/19 24 Diverticulosis of colon 10/03/2020 09/11/19 Swelling of knee joint 07/09/2020 Need for prophylactic vaccin ation against Streptococcus pneumoniae (pneumococcus) and influenza 05/17/2019 09/11/2023 Unsteady gait 04/28/2019 09/11/2023 Family history of stroke 03/14/2019 024 Hyperlipidemia 03/14/2019 09/11/2023 Hypomagnesemia 03/14/2019 09/11/2023 Hypertensive disorder 03/08/2019 Pain in joint of right shoulder 10/18/2018 09/11/2023 Encounter for screening for malignant neoplasm o f colon 01/15/2018 09/11/2023 Arthritis 01/15/2018 09/11/2023 Hypokalemia 01/15/2018 09/11/2023 Obstructive sleep apnea syndrome 10/12/2016 09/11/2023 Contact dermatitis 05/21/2016 09/11/2023 Type 2 diabetes mellitus wit h other diabetic kidney complication 04/28/2016 Stage 3a chronic kidney disease 04/28/2016 09/11/2023 Secondary hyperparathyroidism of renal origin 09/11/2023 Tuberculosis [...] and heating? Not hard at all 11/29/2022 [facility] - Occupational Stress [...] Comments Blood Pressure 123/68 09/17/2023 3:50 PM FACILITIES PROJECT MANAGER Pulse 68 09/17/2023 3:50 PM FACILITIES PROJECT MANAGER Temperature 36.5 C (97.7 F) 09/17/2023 3:27 PM FACILITIES PROJECT MANAGER Respiratory Rate 13 09/17/2023 3:50 PM FACILITIES PROJECT MANAGER Oxygen Saturation 98% 09/17/2023 3:50 PM FACILITIES PROJECT MANAGER Inhaled Oxygen Concentration 25% 07/23/2022 1 0:00 AM FACILITIES PROJECT MANAGER Weight 90.9 kg (200 lb 6.4 oz) 09/17/2023 12:34 PM FACILITIES PROJECT MANAGER Height 170.2 cm (5' 7 ) 09/17/2023 12:34 PM FACILITIES PROJECT MANAGER Body Mass Index 31.39 09/17/2023 12:34 PM FACILITIES PROJECT MANAGER Medical Devices Implanted Type Area Carrier Packer Device Identifier Shelf Expiration Date Model / Serial / Lot Parth Bone Void 5cc Dbm Allosync Ptty Implanted:Qty: 2 on 11/25/2022 by Robbie Mccann MD at [facility] Left: Humerus [employer] 04/23/2026-2011-11 / / Screw 3.5mm 32mm T15 Slf-Tap Lck Tpr Implanted:Qty: 1 on 11/25/2022 by Robbie Mccann MD at [facility] Left: Humerus [employer] [id number] / / Screw 3.5mm 36mm T15 Slf-Tap Lck Tpr Implanted:Qty: 1 on 11/25/2022 by Robbie Mccann MD at [facility] Left: Humerus [employer] [id number] / / Screw 3.5mm 38mm T15 Slf-Tap Lck Tpr Implanted:Qty: 1 on 11/25/2022 by Robbie Mccann MD at [facility] Left: Humerus [employer] [id number] / / Screw 3.5mm 42mm T15 Lck Slf-Tap Tip Tpr Implanted:Qty: 1 on 11/25/2022 by Robbie Mccann MD at [facility] Left: Humerus [employer] [id number] / / Screw 3.5mm 46mm T15 Slf-Tap Lck Tpr Implanted:Qty: 1 on 11/25/2022 by Robbie Mccann MD at [facility] Left: Humerus [employer] [id number] / / Screw 3.5mm 48mm T15 Slf-Tap Lck Tpr Implanted:Qty: 1 on 11/25/2022 by Robbie Mccann MD at [facility] Left: Humerus [employer] [id number] / / Screw 3.5mm 46mm T15 Lck Mldir Nonster Implanted:Qty: 1 on 11/25/2022 by Robbie Mccann MD at [facility] Left: Humerus [employer] [id number] / / Graft Bone Infs Rhbmp-2 Bvn Clgn Lg 8ml Implanted:Qty: 1 on 11/25/2022 by Robbie Mccann MD at [facility] Left: Humerus [employer] 07/20/2024 [id number] / / [id number] Graft Bone Almtr Dbm Canc 5ml Algrf Ptty - [id number] Implanted:Qty: 1 on 11/25/2022 by Robbie Mccann MD at [facility] Left: Humerus [employer] 09/22/2023 [id number] / [id number] / Alps Proximal Humerus Low Plate Left 11 H, 190mm Implanted:Qty: 1 on 11/25/2022 by Robbie Mccann MD at [facility] Left: Humerus [id number] / / Screw 3.5mm 20mm T15 Lopro Nonlock Implanted:Qty: 3 on 11/25/2022 by Robbie Mccann MD at [facility] Left: Humerus [employer] [id number] / / Screw 3.5mm 22mm T15 Nonlock Lopro Implanted:Qty: 1 on 11/25/2022 by Robbie Mccann MD at [facility] Left: Humerus [employer] [id number] / / Screw 3.5mm 24mm T15 Nonlock Lopro Implanted:Qty: 1 on 11/25/2022 by Robbie Mccann MD at [facility] Left: Humerus [employer] [id number] / / Screw 3.5mm 32mm T15 Nonlock Lopro Implanted:Qty: 1 on 11/25/2022 by Robbie Mccann MD at [facility] Left: Humerus [employer] [id number] / / Explanted Type Area Carrier Packer Device Identifier Shelf Expiration Date Model / Serial / Lot Screw 3.5mm 36mm T15 Slf-Tap Lck Tpr Explanted:Qty: 1 on 11/25/2022 by Robbie Mccann MD at [facility] Left: Humerus [employer] [id number] / / Screw 3.5mm 48mm T15 Slf-Tap Lck Tpr Explanted:Qty: 2 on 11/25/2022 by Robbie Mccann MD at [facility] Left: Humerus [employer] [id number] / / Wire K 2mm 152mm Top Tray Ss Fx Explanted:Qty: 4 on 11/25/2022 by Robbie Mccann MD at [facility] Left: Humerus F[employer] [id number] / / Screw 3.5mm 24mm T15 Nonlock Lopro Explanted:Qty: 1 on 11/25/2022 by Robbie Mccann MD at [facility] Left: Humerus [employer] [id number] / / Procedures * OR TREAT THUMB FX/DISLOC,MANIP(Performed 09/17/2023) Performed for Flexion contractures * GLUCOSE - POINT OF CARE(Performed 09/17/2023) * XR HUMERUS LEFT 2VW OR MORE(Performed 07/15/2023) Performed for Closed displaced segmental fracture of shaft of left humerus with nonunion, subsequent encounter * XR HUMERUS LEFT 2VW OR MORE(Performed 05/25/2023) Performed for Other fracture of shaft of left humerus, subsequent encounter for fracture with malunion * XR HUMERUS LEFT 2VW OR MORE(Performed 04/15/2023) Performed for Closed displaced segmental fracture of shaft of left humerus with nonunion, subsequent encounter * XR HUMERUS LEFT 2VW OR MORE(Performed 02/11/2023) Performed for Other fracture of shaft of left humerus, subsequent encounter for fracture with malunion * XR HUMERUS LEFT 2VW OR MORE(Performed 01/14/2023) Performed for Other fracture of shaft of left humerus, subsequent encounter for fracture with malunion * XR HUMERUS LEFT 2VW OR MORE(Performed 12/17/2022) Performed for Other fracture of shaft of left humerus, subsequent encounter for fracture with malunion * GLUCOSE - POINT OF CARE(Performed 12/04/2022) * MAGNESIUM BLOOD(Performed 12/04/2022) * RENAL FUNCTION PANEL(Performed 12/04/2022) * CBC W/O DIFFERENTIAL(Performed 12/04/2022) * GLUCOSE - POINT OF CARE(Performed 12/03/2022) * GLUCOSE - POINT OF CARE(Performed 12/03/2022) * GLUCOSE - POINT OF CARE(Performed 12/03/2022) * GLUCOSE - POINT OF CARE(Performed 12/03/2022) * MAGNESIUM BLOOD(Performed 12/03/2022) * RENAL FUNCTION PANEL(Performed 12/03/2022) * CBC W/O DIFFERENTIAL(Performed 12/03/2022) * GLUCOSE - POINT OF CARE(Performed 12/02/2022) * GLUCOSE - POINT OF CARE(Performed 12/02/2022) * GLUCOSE - POINT OF CARE(Performed 12/02/2022) * GLUCOSE - POINT OF CARE(Performed 12/02/2022) * MAGNESIUM BLOOD(Performed 12/02/2022) * RENAL FUNCTION PANEL(Performed 12/02/2022) * CBC W/O DIFFERENTIAL(Performed 12/02/2022) * GLUCOSE - POINT OF CARE(Performed 12/02/2022) * CULTURE URINE(Performed 12/02/2022) * GLUCOSE - POINT OF CARE(Performed 12/01/2022) * GLUCOSE - POINT OF CARE(Performed 12/01/2022) * GLUCOSE - POINT OF CARE(Performed 12/01/2022) * GLUCOSE - POINT OF CARE(Performed 12/01/2022) * GLUCOSE - POINT OF CARE(Performed 12/01/2022) * MAGNESIUM BLOOD(Performed 12/01/2022) * RENAL FUNCTION PANEL(Performed 12/01/2022) * CBC W/O DIFFERENTIAL(Performed 12/01/2022) * GLUCOSE - POINT OF CARE(Performed 11/30/2022) * GLUCOSE - POINT OF CARE(Performed 11/30/2022) * GLUCOSE - POINT OF CARE(Performed 11/30/2022) * GLUCOSE - POINT OF CARE(Performed 11/30/2022) * MAGNESIUM BLOOD(Performed 11/30/2022) * RENAL FUNCTION PANEL(Performed 11/30/2022) * CBC W/O DIFFERENTIAL(Performed 11/30/2022) * GLUCOSE - POINT OF CARE(Performed 11/29/2022) * GLUCOSE - POINT OF CARE(Performed 11/29/2022) * GLUCOSE - POINT OF CARE(Performed 11/29/2022) * GLUCOSE - POINT OF CARE(Performed 11/29/2022) * GLUCOSE - POINT OF CARE(Performed 11/29/2022) * GLUCOSE - POINT OF CARE(Performed 11/29/2022) * SODIUM URINE RANDOM(Performed 11/28/2022) * URINALYSIS W/MICROSCOPIC NO CULTURE(Performed 11/28/2022) * CREATININE URINE RANDOM(Performed 11/28/2022) * UREA NITROGEN URINE RANDOM(Performed 11/28/2022) * EOSINOPHIL URINE SMEAR(Performed 11/28/2022) * PROTEIN URINE RANDOM QUANTITATIVE(Performed 11/28/2022) * GLUCOSE - POINT OF CARE(Performed 11/28/2022) * CT HEAD WO CONTRAST(Performed 11/28/2022) Performed for Altered mental status, unspecified altered mental status type * TROPONIN-I HIGH SENSITIVE REFLEX 1HOUR(Performed 11/28/2022) * XR HUMERUS LEFT 2VW OR MORE(Performed 11/28/2022) Performed for Altered mental status, unspecified altered mental status type * XR CHEST 1VW PORTABLE(Performed 11/28/2022) Performed for Altered mental status, unspecified altered mental status type * TROPONIN-I HIGH SENSITIVE BASELINE + 1HR(Performed 11/28/2022) * PT-INR SLH(Performed 11/28/2022) * MAGNESIUM BLOOD(Performed 11/28/2022) * COMPREHENSIVE METABOLIC PANEL(Performed 11/28/2022) * CBC W AUTO DIFFERENTIAL(Performed 11/28/2022) * GLUCOSE - POINT OF CARE(Performed 11/27/2022) * XR HUMERUS LEFT 2VW OR MORE(Performed 11/27/2022) Performed for Other fracture of shaft of left humerus, subsequent encounter for fracture with malunion * GLUCOSE - POINT OF CARE(Performed 11/27/2022) * CBC W/O DIFFERENTIAL(Performed 11/27/2022) Performed for Other fracture of shaft of left humerus, subsequent encounter for fracture with malunion * BASIC METABOLIC PANEL (CALCIUM TOTAL)(Performed 11/27/2022) Performed for Other fracture of shaft of left humerus, subsequent encounter for fracture with malunion * GLUCOSE - POINT OF CARE(Performed 11/26/2022) * GLUCOSE - POINT OF CARE(Performed 11/26/2022) * GLUCOSE - POINT OF CARE(Performed 11/26/2022) * GLUCOSE - POINT OF CARE(Performed 11/26/2022) * GLUCOSE - POINT OF CARE(Performed 11/26/2022) * HEMOGLOBIN A1C(Performed 11/26/2022) Performed for Other fracture of shaft of left humerus, subsequent encounter for fracture with malunion * CBC W/O DIFFERENTIAL(Performed 11/26/2022) Performed for Other fracture of shaft of left humerus, subsequent encounter for fracture with malunion * BASIC METABOLIC PANEL (CALCIUM TOTAL)(Performed 11/26/2022) Performed for Other fracture of shaft of left humerus, subsequent encounter for fracture with malunion * GLUCOSE - POINT OF CARE(Performed 11/25/2022) * GLUCOSE - POINT OF CARE(Performed 11/25/2022) * XR HUMERUS LEFT 2VW OR MORE(Performed 11/25/2022) Performed for Other fracture of shaft of left humerus, subsequent encounter for fracture with malunion * PERIPHERAL BLOCK(Performed 11/25/2022) * PULSE OXIMETRY, CONTINUOUS(Performed 11/25/2022) * GLUCOSE - POINT OF CARE(Performed 11/25/2022) * FL BARON SURGERY(Performed 11/25/2022) Performed for Other fracture of shaft of left humerus, subsequent encounter for fracture with malunion * BLOOD GAS+COOX+LYTES+METAB ARTERIAL POCT(Performed 11/25/2022) * BLOOD GAS KACIE+LYTES+METAB+COOX POC NOTIF(Performed 11/25/2022) Performed for Other fracture of shaft of left humerus, subsequent encounter for fracture with malunion * ENDOTRACHEAL TUBE NOTE(Performed 11/25/2022) * OPEN REDUCTION INTERNAL FIXATION (ORIF) HUMERUS(Performed 11/25/2022) Performed for Humerus head fracture, unspecified laterality, with nonunion, subsequent encounter * GLUCOSE - POINT OF CARE(Performed 11/25/2022) * TYPE + SCREEN PANEL(Performed 11/25/2022) * CT HUMERUS LEFT WO CONTRAST(Performed 10/20/2022) Performed for Closed displaced comminuted fracture of shaft of left humerus with delayed healing, subsequent encounter * XR HUMERUS LEFT 2VW OR MORE(Performed 10/13/2022) Performed for Closed displaced oblique fracture of shaft of left humerus with routine healing, subsequent encounter * XR HUMERUS LEFT 2VW OR MORE(Performed 09/01/2022) Performed for Closed displaced oblique fracture of shaft of left humerus, initial encounter * XR HUMERUS LEFT 2VW OR MORE(Performed 08/11/2022) Performed for Closed displaced oblique fracture of shaft of left humerus, initial encounter * CARDIAC EKG ORDER(Performed 08/08/2022) * GLUCOSE - POINT OF CARE(Performed 08/05/2022) * SARS-COV-2 (COVID-19) RAPID(Performed 08/05/2022) * GLUCOSE - POINT OF CARE(Performed 08/05/2022) * CBC W/O DIFFERENTIAL(Performed 08/05/2022) * RENAL FUNCTION PANEL(Performed 08/05/2022) * MAGNESIUM BLOOD(Performed 08/05/2022) * GLUCOSE - POINT OF CARE(Performed 08/04/2022) * GLUCOSE - POINT OF CARE(Performed 08/04/2022) * GLUCOSE - POINT OF CARE(Performed 08/04/2022) * GLUCOSE - POINT OF CARE(Performed 08/04/2022) * CBC W/O DIFFERENTIAL(Performed 08/04/2022) * RENAL FUNCTION PANEL(Performed 08/04/2022) * MAGNESIUM BLOOD(Performed 08/04/2022) * GLUCOSE - POINT OF CARE(Performed 08/03/2022) * GLUCOSE - POINT OF CARE(Performed 08/03/2022) * GLUCOSE - POINT OF CARE(Performed 08/03/2022) * GLUCOSE - POINT OF CARE(Performed 08/03/2022) * CBC W/O DIFFERENTIAL(Performed 08/03/2022) * RENAL FUNCTION PANEL(Performed 08/03/2022) * MAGNESIUM BLOOD(Performed 08/03/2022) * GLUCOSE - POINT OF CARE(Performed 08/02/2022) * GLUCOSE - POINT OF CARE(Performed 08/02/2022) * GLUCOSE - POINT OF CARE(Performed 08/02/2022) * GLUCOSE - POINT OF CARE(Performed 08/02/2022) * CBC W/O DIFFERENTIAL(Performed 08/02/2022) * RENAL FUNCTION PANEL(Performed 08/02/2022) * MAGNESIUM BLOOD(Performed 08/02/2022) * GLUCOSE - POINT OF CARE(Performed 08/01/2022) * GLUCOSE - POINT OF CARE(Performed 08/01/2022) * GLUCOSE - POINT OF CARE(Performed 08/01/2022) * GLUCOSE - POINT OF CARE(Performed 08/01/2022) * XR HUMERUS LEFT 2VW OR MORE(Performed 08/01/2022) Performed for Closed displaced oblique fracture of shaft of left humerus, initial encounter * CBC W/O DIFFERENTIAL(Performed 08/01/2022) * RENAL FUNCTION PANEL(Performed 08/01/2022) * MAGNESIUM BLOOD(Performed 08/01/2022) * GLUCOSE - POINT OF CARE(Performed 07/31/2022) * GLUCOSE - POINT OF CARE(Performed 07/31/2022) * GLUCOSE - POINT OF CARE(Performed 07/31/2022) * GLUCOSE - POINT OF CARE(Performed 07/31/2022) * CBC W/O DIFFERENTIAL(Performed 07/31/2022) * RENAL FUNCTION PANEL(Performed 07/31/2022) * MAGNESIUM BLOOD(Performed 07/31/2022) * GLUCOSE - POINT OF CARE(Performed 07/30/2022) * GLUCOSE - POINT OF CARE(Performed 07/30/2022) * SARS-COV-2 (COVID-19) RAPID(Performed 07/30/2022) * GLUCOSE - POINT OF CARE(Performed 07/30/2022) * XR HUMERUS LEFT 2VW OR MORE(Performed 07/30/2022) Performed for Closed displaced oblique fracture of shaft of left humerus, initial encounter * GLUCOSE - POINT OF CARE(Performed 07/30/2022) * CBC W/O DIFFERENTIAL(Performed 07/30/2022) * RENAL FUNCTION PANEL(Performed 07/30/2022) * MAGNESIUM BLOOD(Performed 07/30/2022) * GLUCOSE - POINT OF CARE(Performed 07/29/2022) * CULTURE URINE(Performed 07/29/2022) * GLUCOSE - POINT OF CARE(Performed 07/29/2022) * GLUCOSE - POINT OF CARE(Performed 07/29/2022) * XR WRIST LEFT 3VW OR MORE(Performed 07/29/2022) Performed for Fall, initial encounter * GLUCOSE - POINT OF CARE(Performed 07/29/2022) * CBC W/O DIFFERENTIAL(Performed 07/29/2022) * RENAL FUNCTION PANEL(Performed 07/29/2022) * MAGNESIUM BLOOD(Performed 07/29/2022) * GLUCOSE - POINT OF CARE(Performed 07/28/2022) * GLUCOSE - POINT OF CARE(Performed 07/28/2022) * GLUCOSE - POINT OF CARE(Performed 07/28/2022) * URINALYSIS REFLEX TO MICROSCOPIC NO CULTURE(Performed 07/28/2022) * GLUCOSE - POINT OF CARE(Performed 07/28/2022) * CBC W/O DIFFERENTIAL(Performed 07/28/2022) * RENAL FUNCTION PANEL(Performed 07/28/2022) * MAGNESIUM BLOOD(Performed 07/28/2022) * GLUCOSE - POINT OF CARE(Performed 07/27/2022) * GLUCOSE - POINT OF CARE(Performed 07/27/2022) * GLUCOSE - POINT OF CARE(Performed 07/27/2022) * GLUCOSE - POINT OF CARE(Performed 07/27/2022) * CBC W/O DIFFERENTIAL(Performed 07/27/2022) * GLUCOSE - POINT OF CARE(Performed 07/27/2022) * GLUCOSE - POINT OF CARE(Performed 07/27/2022) * CBC W/O DIFFERENTIAL(Performed 07/27/2022) * RENAL FUNCTION PANEL(Performed 07/27/2022) * MAGNESIUM BLOOD(Performed 07/27/2022) * GLUCOSE - POINT OF CARE(Performed 07/26/2022) * CBC W/O DIFFERENTIAL(Performed 07/26/2022) * GLUCOSE - POINT OF CARE(Performed 07/26/2022) * GLUCOSE - POINT OF CARE(Performed 07/26/2022) * CBC W/O DIFFERENTIAL(Performed 07/26/2022) * GLUCOSE - POINT OF CARE(Performed 07/26/2022) * CBC W/O DIFFERENTIAL(Performed 07/26/2022) * RENAL FUNCTION PANEL(Performed 07/26/2022) * MAGNESIUM BLOOD(Performed 07/26/2022) * GLUCOSE - POINT OF CARE(Performed 07/25/2022) * CBC W/O DIFFERENTIAL(Performed 07/25/2022) * GLUCOSE - POINT OF CARE(Performed 07/25/2022) * TRANSFUSE RED BLOOD CELL LEUKOREDUCED UNIT(S)(Performed 07/25/2022) * PREPARE RBC LEUKOREDUCED UNIT(Performed 07/25/2022) * GLUCOSE - POINT OF CARE(Performed 07/25/2022) * TYPE + SCREEN PANEL(Performed 07/25/2022) * CBC W/O DIFFERENTIAL(Performed 07/25/2022) * GLUCOSE - POINT OF CARE(Performed 07/25/2022) * GLUCOSE - POINT OF CARE(Performed 07/25/2022) * RENAL FUNCTION PANEL(Performed 07/25/2022) * MAGNESIUM BLOOD(Performed 07/25/2022) * CBC W/O DIFFERENTIAL(Performed 07/25/2022) * GLUCOSE - POINT OF CARE(Performed 07/24/2022) * GLUCOSE - POINT OF CARE(Performed 07/24/2022) * GLUCOSE - POINT OF CARE(Performed 07/24/2022) * GLUCOSE - POINT OF CARE(Performed 07/24/2022) * CBC W/O DIFFERENTIAL(Performed 07/24/2022) * GASTRIN(Performed 07/24/2022) * FERRITIN(Performed 07/24/2022) * IRON + TRANSFERRIN PANEL(Performed 07/24/2022) * GGT(Performed 07/24/2022) * [id number] BLOOD(Performed 07/24/2022) * SMOOTH MUSCLE ANTIBODY W REFLEX TITER(Performed 07/24/2022) * MITOCHONDRIAL ANTIBODY SCREEN(Performed 07/24/2022) * CERULOPLASMIN(Performed 07/24/2022) * MATTIE BLOOD SCREEN W/REFLEX TITER(Performed 07/24/2022) * HEPATITIS SCREEN ACUTE(Performed 07/24/2022) * RENAL FUNCTION PANEL(Performed 07/24/2022) * MAGNESIUM BLOOD(Performed 07/24/2022) * GLUCOSE - POINT OF CARE(Performed 07/24/2022) * GLUCOSE - POINT OF CARE(Performed 07/24/2022) * CBC W/O DIFFERENTIAL(Performed 07/23/2022) * GLUCOSE - POINT OF CARE(Performed 07/23/2022) * XR HUMERUS LEFT 2VW OR MORE(Performed 07/23/2022) Performed for Closed displaced oblique fracture of shaft of left humerus, initial encounter * GLUCOSE - POINT OF CARE(Performed 07/23/2022) * GLUCOSE - POINT OF CARE(Performed 07/23/2022) * CBC W/O DIFFERENTIAL(Performed 07/23/2022) * GLUCOSE - POINT OF CARE(Performed 07/23/2022) * GLUCOSE - POINT OF CARE(Performed 07/23/2022) * RENAL FUNCTION PANEL(Performed 07/23/2022) * MAGNESIUM BLOOD(Performed 07/23/2022) * TRIGLYCERIDES BLOOD(Performed 07/23/2022) * CBC W/O DIFFERENTIAL(Performed 07/23/2022) * GLUCOSE - POINT OF CARE(Performed 07/22/2022) * PREPARE RBC LEUKOREDUCED UNIT(Performed 07/22/2022) * CBC W/O DIFFERENTIAL(Performed 07/22/2022) * GLUCOSE - POINT OF CARE(Performed 07/22/2022) * GLUCOSE - POINT OF CARE(Performed 07/22/2022) * CBC W/O DIFFERENTIAL(Performed 07/22/2022) * GLUCOSE - POINT OF CARE(Performed 07/22/2022) * GLUCOSE - POINT OF CARE(Performed 07/22/2022) * GLUCOSE - POINT OF CARE(Performed 07/22/2022) * BASIC METABOLIC PANEL (CALCIUM TOTAL)(Performed 07/22/2022) * GLUCOSE - POINT OF CARE(Performed 07/22/2022) * GLUCOSE - POINT OF CARE(Performed 07/22/2022) * CBC W/O DIFFERENTIAL(Performed 07/22/2022) * GLUCOSE - POINT OF CARE(Performed 07/22/2022) * GLUCOSE - POINT OF CARE(Performed 07/22/2022) * GLUCOSE - POINT OF CARE(Performed 07/22/2022) * EKG 12-LEAD(Performed 07/22/2022) Performed for Lower GI bleed * GLUCOSE - POINT OF CARE(Performed 07/22/2022) * RENAL FUNCTION PANEL(Performed 07/22/2022) * MAGNESIUM BLOOD(Performed 07/22/2022) * CBC W/O DIFFERENTIAL(Performed 07/22/2022) * GLUCOSE - POINT OF CARE(Performed 07/22/2022) * CBC W/O DIFFERENTIAL(Performed 07/21/2022) * GLUCOSE - POINT OF CARE(Performed 07/21/2022) * CBC W/O DIFFERENTIAL(Performed 07/21/2022) * GLUCOSE - POINT OF CARE(Performed 07/21/2022) * HELICOBACTER PYLORI ANTIGEN FECES(Performed 07/21/2022) * BLOOD GASES ART + COOX PANEL(Performed 07/21/2022) * OR ED EGD FLEX TRANSORAL DX(Performed 07/21/2022) Performed for Gastrointestinal hemorrhage associated with duodenal ulcer * TRANSFUSE RED BLOOD CELL LEUKOREDUCED UNIT(S)(Performed 07/21/2022) * PREPARE RBC LEUKOREDUCED UNIT(Performed 07/21/2022) * EGD(Performed 07/21/2022) * XR CHEST 1VW PORTABLE(Performed 07/21/2022) Performed for Lower GI bleed * GLUCOSE - POINT OF CARE(Performed 07/21/2022) * TEG 6 GLOBAL HEMOSTASIS W/ LYSIS(Performed 07/21/2022) * PT-INR SLH(Performed 07/21/2022) * CBC W/O DIFFERENTIAL(Performed 07/21/2022) * XR CHEST 1VW PORTABLE(Performed 07/21/2022) Performed for Lower GI bleed * CT ANGIO ABDOMEN PELVIS(Performed 07/21/2022) Performed for Lower GI bleed * GLUCOSE - POINT OF CARE(Performed 07/21/2022) * PREPARE RBC LEUKOREDUCED UNIT(Performed 07/21/2022) * SARS-COV-2 (COVID-19) RAPID(Performed 07/21/2022) * BLOOD TYPE VERIFICATION(Performed 07/21/2022) * TYPE + SCREEN PANEL(Performed 07/21/2022) * PHOSPHORUS BLOOD(Performed 07/21/2022) * COMPREHENSIVE METABOLIC PANEL(Performed 07/21/2022) * CBC W AUTO DIFFERENTIAL(Performed 07/21/2022) * MAGNESIUM BLOOD(Performed 07/21/2022) * GLUCOSE - POINT OF CARE(Performed 07/21/2022) * GLUCOSE - POINT OF CARE(Performed 07/20/2022) * GLUCOSE - POINT OF CARE(Performed 07/20/2022) * GLUCOSE - POINT OF CARE(Performed 07/20/2022) * GLUCOSE - POINT OF CARE(Performed 07/20/2022) * CBC W/O DIFFERENTIAL(Performed 07/20/2022) * GLUCOSE - POINT OF CARE(Performed 07/20/2022) * GLUCOSE - POINT OF CARE(Performed 07/19/2022) * GLUCOSE - POINT OF CARE(Performed 07/19/2022) * GLUCOSE - POINT OF CARE(Performed 07/19/2022) * GLUCOSE - POINT OF CARE(Performed 07/19/2022) * GLUCOSE - POINT OF CARE(Performed 07/19/2022) * RENAL FUNCTION PANEL(Performed 07/19/2022) * MAGNESIUM BLOOD(Performed 07/19/2022) * GLUCOSE - POINT OF CARE(Performed 07/19/2022) * GLUCOSE - POINT OF CARE(Performed 07/18/2022) * GLUCOSE - POINT OF CARE(Performed 07/18/2022) * GLUCOSE - POINT OF CARE(Performed 07/18/2022) * CBC W/O DIFFERENTIAL(Performed 07/18/2022) * GLUCOSE - POINT OF CARE(Performed 07/18/2022) * GLUCOSE - POINT OF CARE(Performed 07/18/2022) * GLUCOSE - POINT OF CARE(Performed 07/17/2022) * GLUCOSE - POINT OF CARE(Performed 07/17/2022) * CBC W/O DIFFERENTIAL(Performed 07/17/2022) * GLUCOSE - POINT OF CARE(Performed 07/17/2022) * GLUCOSE - POINT OF CARE(Performed 07/17/2022) * RENAL FUNCTION PANEL(Performed 07/17/2022) * MAGNESIUM BLOOD(Performed 07/17/2022) * GLUCOSE - POINT OF CARE(Performed 07/17/2022) * GLUCOSE - POINT OF CARE(Performed 07/16/2022) * XR HUMERUS LEFT 2VW OR MORE(Performed 07/16/2022) Performed for Closed displaced oblique fracture of shaft of left humerus, initial encounter * GLUCOSE - POINT OF CARE(Performed 07/16/2022) * GLUCOSE - POINT OF CARE(Performed 07/16/2022) * GLUCOSE - POINT OF CARE(Performed 07/16/2022) * CBC W/O DIFFERENTIAL(Performed 07/16/2022) * GLUCOSE - POINT OF CARE(Performed 07/16/2022) * GLUCOSE - POINT OF CARE(Performed 07/15/2022) * GLUCOSE - POINT OF CARE(Performed 07/15/2022) * GLUCOSE - POINT OF CARE(Performed 07/15/2022) * ECHO COMPLETE(Performed 07/15/2022) Performed for Tachycardia, unspecified * GLUCOSE - POINT OF CARE(Performed 07/15/2022) * RENAL FUNCTION PANEL(Performed 07/15/2022) * MAGNESIUM BLOOD(Performed 07/15/2022) * GLUCOSE - POINT OF CARE(Performed 07/15/2022) * GLUCOSE - POINT OF CARE(Performed 07/14/2022) * GLUCOSE - POINT OF CARE(Performed 07/14/2022) * GLUCOSE - POINT OF CARE(Performed 07/14/2022) * GLUCOSE - POINT OF CARE(Performed 07/14/2022) * GLUCOSE - POINT OF CARE(Performed 07/14/2022) * GLUCOSE - POINT OF CARE(Performed 07/14/2022) * GLUCOSE - POINT OF CARE(Performed 07/13/2022) * GLUCOSE - POINT OF CARE(Performed 07/13/2022) * GLUCOSE - POINT OF CARE(Performed 07/13/2022) * GLUCOSE - POINT OF CARE(Performed 07/13/2022) * CBC W/O DIFFERENTIAL(Performed 07/13/2022) * MAGNESIUM BLOOD(Performed 07/13/2022) * RENAL FUNCTION PANEL(Performed 07/13/2022) * GLUCOSE - POINT OF CARE(Performed 07/13/2022) * GLUCOSE - POINT OF CARE(Performed 07/12/2022) * GLUCOSE - POINT OF CARE(Performed 07/12/2022) * GLUCOSE - POINT OF CARE(Performed 07/12/2022) * GLUCOSE - POINT OF CARE(Performed 07/12/2022) * TSH REFLEX FREE T4(Performed 07/12/2022) * CBC W/O DIFFERENTIAL(Performed 07/12/2022) * MAGNESIUM BLOOD(Performed 07/12/2022) * RENAL FUNCTION PANEL(Performed 07/12/2022) * EKG 12-LEAD(Performed 07/11/2022) Performed for Tachycardia, unspecified * GLUCOSE - POINT OF CARE(Performed 07/11/2022) * GLUCOSE - POINT OF CARE(Performed 07/11/2022) * CBC W/O DIFFERENTIAL(Performed 07/11/2022) * MAGNESIUM BLOOD(Performed 07/11/2022) * RENAL FUNCTION PANEL(Performed 07/11/2022) * GLUCOSE - POINT OF CARE(Performed 07/11/2022) * GLUCOSE - POINT OF CARE(Performed 07/10/2022) * GLUCOSE - POINT OF CARE(Performed 07/10/2022) * GLUCOSE - POINT OF CARE(Performed 07/10/2022) * GLUCOSE - POINT OF CARE(Performed 07/10/2022) * CBC W/O DIFFERENTIAL(Performed 07/10/2022) * MAGNESIUM BLOOD(Performed 07/10/2022) * RENAL FUNCTION PANEL(Performed 07/10/2022) * GLUCOSE - POINT OF CARE(Performed 07/09/2022) * GLUCOSE - POINT OF CARE(Performed 07/09/2022) * GLUCOSE - POINT OF CARE(Performed 07/09/2022) * GLUCOSE - POINT OF CARE(Performed 07/09/2022) * CBC W/O DIFFERENTIAL(Performed 07/09/2022) * MAGNESIUM BLOOD(Performed 07/09/2022) * RENAL FUNCTION PANEL(Performed 07/09/2022) * CREATININE URINE RANDOM(Performed 07/09/2022) * URINE DRUG SCREEN IMMUNOASSAY(Performed 07/09/2022) * UREA NITROGEN URINE RANDOM(Performed 07/09/2022) * SODIUM URINE RANDOM(Performed 07/09/2022) * GLUCOSE - POINT OF CARE(Performed 07/09/2022) * GLUCOSE - POINT OF CARE(Performed 07/08/2022) * GLUCOSE - POINT OF CARE(Performed 07/08/2022) * GLUCOSE - POINT OF CARE(Performed 07/08/2022) * GLUCOSE - POINT OF CARE(Performed 07/08/2022) * HEMOGLOBIN A1C(Performed 07/08/2022) * CBC W/O DIFFERENTIAL(Performed 07/08/2022) * MAGNESIUM BLOOD(Performed 07/08/2022) * RENAL FUNCTION PANEL(Performed 07/08/2022) * PT EVAL AND TREAT(Performed 07/08/2022) * OT EVAL AND TREAT(Performed 07/08/2022) * CK BLOOD(Performed 07/08/2022) * PHENYTOIN LEVEL TOTAL(Performed 07/08/2022) Performed for Altered mental status, unspecified altered mental status type * LEVETIRACETAM LEVEL(Performed 07/08/2022) Performed for Altered mental status, unspecified altered mental status type * MAGNESIUM BLOOD(Performed 07/08/2022) Performed for Altered mental status, unspecified altered mental status type * RENAL FUNCTION PANEL(Performed 07/08/2022) Performed for Altered mental status, unspecified altered mental status type * HYDROXYBUTYRATE BETA(Performed 07/08/2022) Performed for Altered mental status, unspecified altered mental status type * LACTIC ACID BLOOD(Performed 07/08/2022) Performed for Altered mental status, unspecified altered mental status type * SARS-COV-2 (COVID-19)+INFLU A+B PCR RAPID(Performed 07/07/2022) * XR HUMERUS LEFT 2VW OR MORE(Performed 07/07/2022) Performed for Closed displaced oblique fracture of shaft of left humerus, initial encounter * XR CHEST 1VW PORTABLE(Performed 07/07/2022) Performed for Altered mental status, unspecified altered mental status type * URINALYSIS W/MICROSCOPIC NO CULTURE(Performed 07/07/2022) * COMPREHENSIVE METABOLIC PANEL(Performed 07/07/2022) * CBC W AUTO DIFFERENTIAL(Performed 07/07/2022) * XR HUMERUS LEFT 2VW OR MORE(Performed 07/07/2022) Performed for Closed displaced oblique fracture of shaft of left humerus, initial encounter Results * (ABNORMAL) GLUCOSE - POINT OF CARE (09/17/2023 12:54 PM FACILITIES PROJECT MANAGER) Only the most recent of178 resultswithin the time period is included. Glucose WB/POC 139(H) 70 - 115 mg/dL 09/22/2023 7:43 AM FACILITIES PROJECT MANAGER [facility] Specimen Type Venous 09/22/2023 7:43 AM FACILITIES PROJECT MANAGER [facility] Blood BLOOD SPECIMEN / Unknown 09/17/2023 12:54 PM FACILITIES PROJECT MANAGER 09/22/2023 7:43 AM FACILITIES PROJECT MANAGER Gee Canela MD LAB - POINT OF CARE ORDERABLES [address] [address], [facility] [phone] * XR HUMERUS LEFT 2VW OR MORE (07/15/2023 10:39 AM FACILITIES PROJECT MANAGER) Only the most recent of18 resultswithin the time period is included. Anatomical Region Laterality Modality Upper Extremity Radiographic Sade ging 07/15/2023 10:5 1 AM FACILITIES PROJECT MANAGER Impressions 07/15/2023 11:10 AM FACILITIES PROJECT MANAGER IMPRESSION: Unchanged osseous alignment. Report dictated by Mary Olmedo MD (rn residential). I, Guille Whitlock MD have personally reviewed and interpreted this examination/study. 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 FINDINGS: Redemonstration of internal fixation of the proximal humeral shaft fracture with plate and screws. The hardware is intact. The osseous alignment is unchanged. Redemonstrated callus formation and resorption of the graft material. 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 FINDINGS: Redemonstration of internal fixation of the proximal humeral shaftfracture with plate and screws. The hardware is intact. The osseous alignment is unchanged. Redemonstrated callus formation and resorption of the graft material. IMPRESSION: Unchanged osseous alignment. Report dictated by Mary Olmedo MD (rn residential). I, Guille Whitlock MD have personally reviewed and interpreted this examination/study. > Interpreting Provider: Guille Whitlock MD on 07/15/2023 11:10 AM Robbie Mccann MD DIAGNOSTIC IMAGING O RDERABLES * (ABNORMAL) CBC W/O DIFFERENTIAL (12/04/2022 2:46 AM CDT) Only the most recent of45 resultswithin the time period is included. WBC 6.8 3.5 - 10.5 10 3/uL 12/04/2022 3:44 AM CDT [facility] RBC 3.20(L) 3.80 - 5.20 10 6/uL 12/04/2022 3:44 AM CDT [facility] Hemoglobin 9.0(L) 12.0 - 15.6 g/dL 12/04/2022 3:44 AM [facility] Hematocrit 29.5(L) 35.0 - 45.0 % 12/04/2022 3:44 AM [facility] MCV 92.2 80.7 - 98.3 fL 12/04/2022 3:44 AM [facility] MCH 28.1 26.7 - 34.0 pg 12/04/2022 3:44 AM [facility] MCHC 30.5(L) 30.8 - 35.9 g/dL 12/04/2022 3:44 AM [facility] RDW-SD 49.8 36.0 - 50.0 fL 12/04/2022 3:44 AM [facility] RDW-CV 14.8 11.2 - 14.8 % 12/04/2022 3:44 AM [facility] Platelet Count 176 150 - 400 10 3/uL 12/04/2022 3:44 AM [facility] MPV 12.2 9.4 - 12.9 fL 12/04/2022 3:44 AM [facility] nRBC Absolute 0.00 0 10 3/uL 12/04/2022 3:44 AM [facility] nRBC Auto 0.0 0 /100 WBC 12/04/2022 3:44 AM [facility] Blood BLOOD SPECIMEN / Unknown Lab Venipuncture / Unknown 12/04/2022 2:46 AM CDT 12/04/2022 3:20 AM CDT Blaine Campo MD LAB - HEMATOLOGY OR DERABLES [facility] [address] [place] [address], [facility] [phone] * (ABNORMAL) RENAL FUNCTION PANEL (12/04/2022 2:46 AM CDT) Only the most recent of30 resultswithin the time period is included. BUN 7 7 - 26 mg/dL 12/04/2022 4:03 AM [facility] Creatinine 0.98(H) 0.56 - 0.96 mg/dL 12/04/2022 4:03 AM [facility] Sodium 149(H) 136 - 145 mmol/L 12/04/2022 4:03 AM [facility] Potassium 4.4 3.5 - 4.5 mmol/L 12/04/2022 4:03 AM [facility] Chloride 112(H) 98 - 107 mmol/L 12/04/2022 4:03 AM [facility] CO2 18(L) 22 - 29 mmol/L 12/04/2022 4:03 AM [facility] Glucose 155(H) 70 - 115 mg/dL 12/04/2022 4:03 AM [facility] Albumin 2.6(L) 3.4 - 5.0 g/dL 12/04/2022 4:03 AM [facility] Calcium 9.0 8.4 - 10.2 mg/dL 12/04/2022 4:03 AM [facility] Phosphorus 3.7 2.9 - 5.1 mg/dL 12/04/2022 4:03 AM [facility] Anion Gap 23(H) 8 - 18 12/04/2022 4:03 AM [facility] BUN/Creatinine Ratio 7 7 - 23 12/04/2022 4:03 AM [facility] Osmolality Calculated 309(H) 270 - 300 mOsm/kg 12/04/2022 4:03 AM [facility] eGFR by CKD-EPI 63(L) >=90 mL/min/1.7 3 m2 12/04/2022 4:03 AM [facility] Blood BLOOD SPECIMEN / Unknown Lab Venipuncture / Unknown 12/04/2022 2:46 AM CDT 12/04/2022 3:24 AM CDT Blaine Campo MD LAB - CHEMISTRY ORD ERABLES [facility] [address] [place] [address], [facility] [phone] * MAGNESIUM BLOOD (12/04/2022 2:46 AM CDT) Only the most recent of32 resultswithin the time period is included. Magnesium 1.8 1.6 - 2.6 mg/dL 12/04/2022 4:03 AM CDT [facility] Blood BLOOD SPECIMEN / Unknown Lab Venipuncture / Unknown 12/04/2022 2:46 AM CDT 12/04/2022 3:24 AM CDT Blaine Campo MD LAB - CHEMISTRY ORD ERABLES Performing Organization Address City/[facility]/ZIP Co de Phone Number [facility] [address] [place] [address], [facility] [phone] * CULTURE URINE (12/02/2022 12:59 AM CDT) Only the most recent of2 resultswithin the time period is included. [facility] Culture Urine <10,000 CFU/mL urogenital isreal [place] 12/03/2022 7:15 AM CDT [facility] Urine URINE SPECIMEN OBTAINED BY CLEAN CATCH PROCEDURE / Unknown Collection / Unknown 12/02/2022 12:59 AM CDT 12/02/2022 1:04 AM CDT Blaine Campo MD LAB - MICROBIOLOGY ORDERABLES Performing Organization Address City/[facility]/ZIP Co de Phone Number [facility] [address] [place] [address], [facility] [phone] * (ABNORMAL) URINALYSIS W/MICROSCOPIC NO CULTURE (11/28/2022 11:18 PM CDT) Only the most recent of2 resultswithin the time period is included. Color UA Yellow Straw, Yellow 11/28/2022 11:50 PM CDT [facility] Clarity UA Slt Cloudy(A) Clear 11/28/2022 11:50 PM CDT [facility] Specific Fine UA 1.012 1.005 - 1.030 11/28/2022 11:50 PM CDT [facility] pH UA 5.0 5.0 - 8.0 pH 11/28/2022 11:50 PM CDT [facility] Protein UA Negative Negative 11/28[facility]2022 11:[facility] Glucose UA Negative Negative 11/28/2022 11:50 PM T [facility] Ketone UA Negative Negative 11/28/2022 11:50 PM [facility] Bilirubin UA Negative Negative 11/28/2022 11:50 PM [facility] Blood UA Negative Negative 11/28/2022 11:50 PM [facility] Nitrite UA Negative Negative 11/28/2022 11:50 PM [facility] Leukocyte Esterase 3+(A) Negative 11/28/2022 11:50 PM [facility] Urobilinogen UA Negative Negative mg/dL 11/28/2022 11:50 PM [facility] RBC UA None Seen None Seen, 0-2, 3-5 /HPF 11/28/2022 11:50 PM [facility] WBC UA 11-20(A) None Seen, 0-5 /HPF 11/28/2022 11:50 PM [facility] Bacteria UA 1+(A) None /HPF 11/28/2022 11:50 PM [facility] Squamous Epithelial Cells UA 0-2 None Seen, 0-2, 3-5 /HPF 11/28/2022 11:50 PM [facility] Mucus UA 1+ /LPF 11/28/2022 11:50 PM [facility] Hyaline Casts UA 0-2 None Seen, 0-2 /LPF 11/28/2022 11:50 PM [facility] Urine URINE SPECIMEN OBTAINED BY CLEAN CATCH PROCEDURE / Unknown Collection / Unknown 11/28/2022 11:18 PM CDT 11/28/2022 11:23 PM CDT [facility] - 11/28/2022 11:50 PM CDT Cleve Fisher MD LAB - URINALYSIS ORDERABLES [facility] [address] [place] [address], [facility] [phone] * EOSINOPHIL URINE SMEAR (11/28/2022 11:18 PM CDT) Eosin Stain Urine None None 11/30/2022 5:15 PM CDT [facility] Urine URINE SPECIMEN OBTAINED BY CLEAN CATCH PROCEDURE / Unknown Collection / Unknown 11/28/2022 11:18 PM CDT 11/28/2022 11:23 PM CDT Cleve Fisher MD LAB - URINE CHEM ISTRY ORDERABLES [address] [address], [place] [phone] * PROTEIN URINE RANDOM QUANTITATIVE (11/28/2022 11:18 PM CDT) Protein Urine 24 Not Established mg/dL 11/28/2022 11:54 PM CDT [facility] Urine URINE SPECIMEN OBTAINED BY CLEAN CATCH PROCEDURE / Unknown Collection / Unknown 11/28/2022 11:18 PM CDT 11/28/2022 11:23 PM CDT Cleve Fisher MD LAB - URINE CHEM ISTRY ORDERABLES Performing Organization Address [facility]/ZIP Co de Phone Number [address] [address], [place] [phone] * SODIUM URINE RANDOM (11/28/2022 11:18 PM CDT) Only the most recent of2 resultswithin the time period is included. Sodium Urine 48 Not Established mmol/L 11/28/2022 11:54 PM CDT [facility] Urine URINE SPECIMEN OBTAINED BY CLEAN CATCH PROCEDURE / Unknown Collection / Unknown 11/28/2022 11:18 PM CDT 11/28/2022 11:23 PM CDT Cleve Fisher MD LAB - URINE CHEM ISTRY ORDERABLES [address] [address], [place] [phone] * UREA NITROGEN URINE RANDOM (11/28/2022 11:18 PM CDT) Only the most recent of2 resultswithin the time period is included. Urea Nitrogen Random Urine 634 Not Established mg/dL 11/28/2022 11:54 PM CDT [facility] Urine URINE SPECIMEN OBTAINED BY CLEAN CATCH PROCEDURE / Unknown Collection / Unknown 11/28/2022 11:18 PM CDT 11/28/2022 11:23 PM CDT Cleve Fisher MD LAB - URINE CHEM ISTRY ORDERABLES Performing Organization Address City/[facility]/ZIP Co de Phone Number [address] [address], [place] [phone] * CREATININE URINE RANDOM (11/28/2022 11:18 PM CDT) Only the most recent of2 resultswithin the time period is included. Creatinine Urine 97 Not Established mg/dL 11/28/2022 11:54 PM CDT [facility] Urine URINE SPECIMEN OBTAINED BY CLEAN CATCH PROCEDURE / Unknown Collection / Unknown 11/28/2022 11:18 PM CDT 11/28/2022 11:23 PM CDT Cleve Fisher MD LAB - URINE CHEM ISTRY ORDERABLES Performing Organization Address City/[facility]/ZIP Co de Phone Number [address] [address], [place] [phone] * CT HEAD WO CONTRAST (11/28/2022 8:00 PM CDT) Anatomical Region Laterality Modality Head Computed Tomogra phy 11/28/2022 8:43 PM CDT Impressions 11/28/2022 11:33 PM CDT IMPRESSION: 1.No acute intracranial process. > Dictated by Noah Boyce MD (compensation vice president) I, Jaime Finley MD have personally reviewed and interpreted this examination/study. > Interpreting Provider: Jaime Finley MD on 11/28/2022 11:33 PM Narrative 11/28/2022 11:33 PM CDT PROCEDURE: CT HEAD WO CONTRAST, DATE/TIME OF EXAM: 11/28/2022 8:01 PM, LOCATION [facility] INDICATION: R41.82: Altered mental status, unspecified altered mental status type ADDITIONAL CLINICAL INFORMATION: Ordering Provider Reason For Exam: is there ICH COMPARISON: None. TECHNIQUE: CT of the head was performed without contrast according to standard protocol. FINDINGS: No acute intra- or extra-axial fluid collections are identified. No hydrocephalus. The basilar cisterns are patent. No mass effect or midline shift is seen. 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 There is a chronic lacunar right basal ganglia infarct. The [place]-white matter differentiation is normal. Periventricular white matter hypoattenuation is indicative of chronic small vessel ischemic disease. There is vascular calcification of the carotid siphons and V4 segments of the vertebral arteries. The orbits appear normal. The paranasal sinuses are clear. The mastoid air cells are clear. No soft tissue abnormality is identified. Procedure Note Jaime Finley MD - 11/28/2022 PROCEDURE: CT HEAD WO CONTRAST, DATE/TIME OF EXAM: 11/28/2022 8:01 PM, LOCATION [facility] INDICATION: R41.82: Altered mental status, unspecified altered mental status type ADDITIONAL CLINICAL INFORMATION: Ordering Provider Reason For Exam: is there ICH COMPARISON: None. TECHNIQUE: CT of the head was performed without contrast according to standard protocol. FINDINGS: No acute intra- or extra-axial fluid collections are identified. No hydrocephalus. The basilar cisterns are patent. No mass effect ormidline shift is seen. 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 There eren chronic lacunar right basal ganglia infarct. The [place]-white matter differentiation is normal. Periventricular white matter hypoattenuationis indicative of chronic small vessel ischemic disease. There is vascular calcification of the carotid siphons and V4 segments of the vertebral arteries. The orbits appear normal. The paranasal sinuses are clear. The mastoid air cells are clear. No soft tissue abnormality is identified. IMPRESSION: 1.No acute intracranial process. > Dictated by Noah Boyce MD (compensation vice president) Jaime Graham MD have personally reviewed and interpreted this examination/study. > Interpreting Provider: Jaime Finley MD on 11/28/2022 11:33 PM Ben Romano MD CT ORDERABLES * TROPONIN-I HIGH SENSITIVE REFLEX 1HOUR (11/28/2022 7:48 PM CDT) Troponin I High Sensitive 8 <=14 ng/L 11/28/2022 8:25 PM CDT [facility] [place] Troponin I HS <0 <6 ng/L 11/28/2022 8:25 PM CDT [facility] Blood BLOOD SPECIMEN / Unknown Venipuncture / Unknown 11/28/2022 7:48 PM CDT 11/28/2022 7:54 PM CDT Ben Romano MD LAB - CHEMISTRY [facility] Organization Address City/State/ZIP Co de Phone Number [address] [id number] [phone] * XR CHEST 1VW PORTABLE (11/28/2022 7:00 PM CDT) Only the most recent of4 resultswithin the time period is included. Anatomical Region Laterality Modality Chest Radiographic Sade ging 11/28/2022 8:14 PM CDT Impressions 11/29/2022 9:01 AM CDT IMPRESSION: Hypoinflated lungs without identified focal consolidation. Report dictated by Phani Hughes MD (rn residential). I, Trell Dean have personally reviewed and interpreted this examination/study. > Interpreting Provider: Trell Dean on 11/29/2022 9:01 AM Narrative 11/29/2022 9:01 AM CDT PROCEDURE: XR CHEST 1VW PORTABLE DATE/TIME OF EXAM: 11/28/2022 7:10 PM CLINICAL INFORMATION: None relevant/not provided if blank. Indication: R41.82: Altered mental status, unspecified altered mental status type Additional History: COMPARISON: Chest radiograph dated 07/21/2022 FINDINGS: Lung volumes are small limiting evaluation. The chin obscures the bilateral lung apices. Prominence of the bronchovascular markings may be secondary to hypoinflation. There are atherosclerotic calcifications of the aorta. Healed right rib fractures are redemonstrated. Fixation hardware is present in the left humerus. There are degenerative changes of the right humerus. Procedure Note Trell Dean MD - 11/29/2022 PROCEDURE: XR CHEST 1VW PORTABLE DATE/TIME OF EXAM: 11/28/2022 7:10 PM CLINICAL INFORMATION: None relevant/not provided if blank. Indication: R41.82: Altered mental status, unspecified altered mental status type Additional History: COMPARISON: Chest radiograph dated 07/21/2022 FINDINGS: Lung volumes are small limiting evaluation. The chin obscures thebilateral lung apices. Prominence of the bronchovascular markings may be secondaryto hypoinflation. There are atherosclerotic calcifications of the aorta. Healed right rib fractures are redemonstrated. Fixation hardware ispresent in the left humerus. There are degenerative changes of the righthumerus. IMPRESSION: Hypoinflated lungs without identified focal consolidation. Report dictated by Phani Hughes MD (rn residential). I, Trell Dean have personally reviewed and interpreted this examination/study. > Interpreting Provider: Trell Dean on 11/29/2022 9:01 AM Ben Romano MD DIAGNOSTIC IMAGING O RDERABLES * PT-INR [facility] (11/28/2022 6:21 PM CDT) Only the most recent of2 resultswithin the time period is included. PT 12.5 12.1 - 14.8 Seconds 11/28/2022 6:51 PM CDT [facility] INR 0.9 See Comment 11/28/2022 6:51 PM CDT [facility] Comment:The suggested therap eutic range for standard coumadin (warfarin) therapy is an INR of 2.0-3.0. For high-risk patients (Mechanical Mitral Valve Prosthesis, etc.), the suggested prophylactic therapeutic range is an INR of 2.5-3.5. Blood BLOOD SPECIMEN / Unknown Venipuncture / Unknown 11/28/2022 6:21 PM CDT 11/28/2022 6:29 PM CDT Ben Romano MD LAB - COAGULATION OR DERABLES Performing Organization Address City/[facility]/ZIP Co de Phone Number [address] [address], [place] [phone] * TROPONIN-I HIGH SENSITIVE BASELINE + 1HR (11/28/2022 6:21 PM CDT) [facility] Troponin I High Sensitive 9 <=14 ng/L 11/28/2022 7:02 PM CDT [facility] Blood BLOOD SPECIMEN / Unknown Venipuncture / Unknown 11/28/2022 6:21 PM CDT 11/28/2022 6:30 PM CDT Ben Romano MD LAB - CHEMISTRY ORDE RABLES Performing Organization Address [facility]/ZIP Co de Phone Number [address] [address], [place] [phone] * (ABNORMAL) CBC W AUTO DIFFERENTIAL (11/28/2022 6:21 PM CDT) Only the most recent of3 resultswithin the time period is included. [facility] WBC 13.0(H) 3.5 - 10.5 10 3/uL 11/28/2022 6:52 PM [facility] RBC 3.71(L) 3.80 - 5.20 10 6/uL 11/28/2022 6:52 PM [facility] Hemoglobin 10.4(L) 12.0 - 15.6 g/dL 11/28/2022 6:52 PM T [facility] Hematocrit 34.6(L) 35.0 - 45.0 % 11/28/2022 6:52 PM [facility] MCV 93.3 80.7 - 98.3 fL 11/28/2022 6:52 PM [facility] MCH 28.0 26.7 - 34.0 pg 11/28/2022 6:52 PM T [facility] MCHC 30.1(L) 30.8 - 35.9 g/dL 11/28/2022 6:52 PM [facility] RDW-SD 51.1(H) 36.0 - 50.0 fL 11/28/2022 6:52 PM [facility] RDW-CV 14.9(H) 11.2 - 14.8 % 11/28/2022 6:52 PM [facility] Platelet Count 216 150 - 400 10 3/uL 11/28/2022 6:52 PM [facility] MPV 12.0 9.4 - 12.9 fL 11/28/2022 6:52 PM [facility] nRBC Absolute 0.00 0 10 3/uL 11/28/2022 6:52 PM [facility] nRBC Auto 0.0 0 /100 WBC 11/28/2022 6:52 PM [facility] Neutrophils % 73.9(H) 35.0 - 70.0 % 11/28/2022 6:52 PM [facility] Lymphocytes % 14.3(L) 20.0 - 43.0 % 11/28/2022 6:52 PM [facility] Monocytes % 9.0 5.0 - 13.0 % 11/28/2022 6:52 PM [facility] Eosinophils % 1.5 0.0 - 6.0 % 11/28/2022 6:52 PM [facility] Basophil % 0.6 0.0 - 2.0 % 11/28/2022 6:52 PM [facility] Neutrophils Absolute 9.56(H) 1.60 - 7.00 10 3/uL 11/28/2022 6:52 PM [facility] Lymphocyte Absolute 1.85 1.10 - 3.90 10 3/uL 11/28/2022 6:52 PM [facility] Monocytes Absolute 1.17(H) 0.26 - 1.07 10 3/uL 11/28/2022 6:52 PM [facility] Eosinophils Absolute 0.20 0.00 - 0.47 10 3/uL 11/28/2022 6:52 PM [facility] Basophils Absolute 0.08 0.00 - 0.08 10 3/uL 11/28/2022 6:52 PM [facility] Immature Granulocytes % 0.7 0.0 - 1.0 % 11/28/2022 6:52 PM [facility] Immature Granulocytes Absolute 0.09 11/28/2022 6:52 PM [facility] Blood BLOOD SPECIMEN / Unknown Venipuncture / Unknown 11/28/2022 6:21 PM CDT 11/28/2022 6:29 PM CDT Ben Romano MD LAB - HEMATOLOGY ORD ERABLES [facility] [address] [place] [address], [facility] [phone] * (ABNORMAL) COMPREHENSIVE METABOLIC PANEL (11/28/2022 6:21 PM CDT) Only the most recent of3 resultswithin the time period is included. BUN 30(H) 7 - 26 mg/dL 11/28/2022 6:56 PM [facility] Creatinine 1.45(H) 0.56 - 0.96 mg/dL 11/28/2022 6:56 PM [facility] Sodium 141 136 - 145 mmol/L 11/28/2022 6:56 PM [facility] Potassium 4.4 3.5 - 4.5 mmol/L 11/28/2022 6:56 PM [facility] Chloride 113(H) 98 - 107 mmol/L 11/28/2022 6:56 PM [facility] CO2 20(L) 22 - 29 mmol/L 11/28/2022 6:56 PM [facility] Glucose 118(H) 70 - 115 mg/dL 11/28/2022 6:56 PM [facility] Calcium 10.1 8.4 - 10.2 mg/dL 11/28/2022 6:56 PM [facility] Protein Total 7.1 6.0 - 8.3 g/dL 11/28/2022 6:56 PM [facility] Albumin 3.1(L) 3.4 - 5.0 g/dL 11/28/2022 6:56 PM [facility] Bilirubin Total 1.0 0.2 - 1.2 mg/dL 11/28/2022 6:56 PM [facility] Alkaline Phosphatase 96 40 - 150 U/L 11/28/2022 6:56 PM [facility] ALT 7 5 - 55 U/L 11/28/2022 6:56 PM [facility] AST 24 5 - 34 U/L 11/28/2022 6:56 PM [facility] Anion Gap 12 8 - 18 11/28/2022 6:56 PM [facility] BUN/Creatinine Ratio 21 7 - 23 11/28/2022 6:56 PM [facility] Osmolality Calculated 299 270 - 300 mOsm/kg 11/28/2022 6:56 PM [facility] Albumin/Globulin Ratio 0.8(L) 1.1 - 2.3 11/28/2022 6:56 PM [facility] eGFR by CKD-EPI 39(L) >=90 mL/min/1.7 3 m2 11/28/2022 6:56 PM [facility] Blood BLOOD SPECIMEN / Unknown Venipuncture / Unknown 11/28/2022 6:21 PM CDT 11/28/2022 6:29 PM T Ben Romano MD LAB - CHEMISTRY [place] [facility] Organization Address City/State/ZIP Co de Phone Number [address] [address], [facility] [phone] * (ABNORMAL) BASIC METABOLIC PANEL (CALCIUM TOTAL) (11/27/2022 12:17 AM T) Only the most recent of3 resultswithin the time period is included. BUN 27(H) 7 - 26 mg/dL 11/27/2022 2:41 AM [facility] Creatinine 1.35(H) 0.56 - 0.96 mg/dL 11/27/2022 2:41 AM [facility] Sodium 139 136 - 145 mmol/L 11/27/2022 2:41 AM [facility] Potassium 4.2 3.5 - 4.5 mmol/L 11/27/2022 2:41 AM [facility] Chloride 115(H) 98 - 107 mmol/L 11/27/2022 2:41 AM [facility] CO2 19(L) 22 - 29 mmol/L 11/27/2022 2:41 AM [facility] Glucose 326(H) 70 - 115 mg/dL 11/27/2022 2:41 AM [facility] Calcium 8.6 8.4 - 10.2 mg/dL 11/27/2022 2:41 AM [facility] Anion Gap 9 8 - 18 11/27/2022 2:41 AM [facility] BUN/Creatinine Ratio 20 7 - 23 11/27/2022 2:41 AM [facility] Osmolality Calculated 306(H) 270 - 300 mOsm/kg 11/27/2022 2:41 AM [facility] eGFR by CKD-EPI 43(L) >=90 mL/min/1.7 3 m2 11/27/2022 2:41 AM [facility] Blood BLOOD SPECIMEN / Unknown Lab Venipuncture / Unknown 11/27/2022 12:17 AM CDT 11/27/2022 2:06 AM T Robbie Mccann MD LAB - CHEMISTRY [facility] Organization Address City/State/ZIP Co de Phone Number [facility] [address] [place] [address], [facility] [phone] * (ABNORMAL) HEMOGLOBIN A1C (11/26/2022 1:18 AM CDT) Only the most recent of2 resultswithin the time period is included. Hemoglobin A1c 9.1(H) <=5.6 % 11/26/2022 1:26 PM [facility] Estimated Average Glucose 214 mg/dL 11/26/2022 1:26 PM [facility] Comment: HbA1c Interpretation: Normal : < 5.7% Pre-diabetes: 5.7-6.4% Diabetes: Equal to or greater than 6.5% Test results diagnostic of diabetes should be repeated for confirmation. Treatment target values recommended by ADA and other clinical organizations should be used to evaluate metabolic control in patients. Reference: [place] [employer], Standards of Care in Diabetes -2020 In patients 70 years and older consider HbA1c target range of 7.0-7.5% (Reference: Cody Garcia, et al. JAMDA. 2012) The Sebia assay for the measurement of HbA1c is a National Glycohemoglobin Standardization Program (NGSP) certified method. Blood BLOOD SPECIMEN / Unknown Lab Venipuncture / Unknown 11/26/2022 1:18 AM CDT 11/26/2022 1:26 AM CDT Robbie Mccann MD LAB - CHEMISTRY [place] [facility] Organization Address City/State/ZIP Co de Phone Number [address] [address], [facility] [phone] * Peripheral Nerve Block (11/25/2022 12:58 PM CDT) Narrative Christopher Medrano MD - 11/25/2022 12:58 PM CDT Christopher Medrano MD 11/25/2022 1:08 PM Peripheral Nerve Block Procedure: Peripheral Nerve Block Patient Location: PACU Preprocedure Section: Indications: at surgeon's request and postop pain management. Pre-anesthetic Checklist: Patient identified, IV Checked, Site examined and clear, Risks and benefits discussed, Surgical consent verified, Monitors and equipment, Time-out performed, Informed consent obtained, Pre-op evaluation done, Questions answered/anesthesia questions answered, Allergies reviewed and Removal hand/wrist jewelry Monitors: BP, Pulse Ox and EKG. Patient Condition: awake Patient Position: supine Procedure Section Laterality: left Block Performed: supraclavicular Prep: Chloraprep Strerile Field: gloves, mask and hat/cap Needle Type: Echogenic insultaed Needle Gauge: 21 Needle Length: 90 mm Needle Depth: 3 cm Catheter? No Ultrasound Guided? Yes Technique: in plane Visualization: Preliminary scan performed, Important anatomical structures identified, Needle tip visualized throughout the procedure, Target identified, No intraneural or intravascular puncture occurred, Ultrasound image in chart, Local visualized surrounding nerve on ultrasound and Hydrodissection utilized Injection was made incrementally with constant monitoring and aspirations every 5 mL's Injection Assessment: Slow fractionated injection Block Agents or Additives used? Yes Block agents used: bupivacaine PF (MARCAINE PF) 0.25 % injection - Infiltration 15 mL - 11/25/2022 12:48:00 PM lidocaine (XYLOCAINE) 2 % injection - Infiltration 10 mL - 11/25/2022 12:48:00 PM Procedure Tolerance: tolerated well Procedure Start Time: 11/25/2022 12:43 PM. Procedure End Time: 11/25/2022 12:48 PM. Procedure Total Time: 5 minutes. Staff Section Anesthesia Provider: Clarence Grewal DO, Performed the procedure Provider #1: Christopher Medrano MD. Additional Comments: Procedure was performed for post operative left arm pain. I was present for and supervised the entire procedure. PS3 Christopher Medrano MD 11/25/2022 1:07 PM . Lyndsey Moore MD GENERAL ANESTHESIA O RDERABLES * [place] BARON SURGERY (11/25/2022 11:28 AM CDT) Narrative [facility] - 11/25/2022 11:29 AM CDT Fluoroscopy was used for this exam in the OR. Please see the Operative report. Robbie Mccann MD FLUOROSCOPY ORDERABL ES [facility] * (ABNORMAL) BLOOD GAS+COOX+LYTES+METAB ARTERIAL POCT (11/25/2022 8:58 AM CDT) pH Arterial 7.36 7.35 - 7.45 pH 11/25/2022 8:58 AM [facility] pO2 Arterial 57(L) 80 - 100 mmHg 11/25/2022 8:58 AM [facility] pCO2 Arterial 38 35 - 45 mmHg 8:58 AM [facility] HCO3 Arterial 21.5 20.0 - 30.0 mmol/L 11/25/2022 8:58 AM [facility] BE Arterial -3.6(L) -2.0 - 2.0 mmol/L 11/25/2022 8:58 AM [facility] Oxyhemoglobin Arterial 88.0 % 11/25/2022 8:58 AM [facility] Dexoyhemoglobin (HHB) % 9.9 % 11/25/2022 8:58 AM [facility] Methemoglobin <0.8 0.0 - 2.0 % 11/25/2022 8:58 AM [facility] Carboxyhemoglobin 1.5 0.0 - 2.0 % 2022 8:58 AM [facility] Comment:Carboxyhemoglobin No rmal Concentration: Non-smokers: 0-2%; Smokers: 0- 9%; Toxic: >20% O2 Content Arterial 15.5 Interpret within clinical context ml/dL 11/25/2022 8:58 AM [facility] Hemoglobin by COOX 12.5 12.0 - 15.6 g/dL 11/25/2022 8:58 AM [facility] O2 Saturation Arterial 90 90 - 100 % 11/25/2022 8:58 AM [facility] Sodium Whole Blood 139 135 - 145 mmol/L 11/25/2022 8:58 AM [facility] Potassium Whole Blood 4.4 3.5 - 5.5 mmol/L 11/25/2022 8:58 AM [facility] Chloride WB 110 101 - 111 mmol/L 11/25/2022 8:58 AM [facility] Calcium Ionized 1.23 mmol/L 8:58 AM [facility] Ionized Calcium pH Adjusted 1.21 1.19 - 1.34 mmol/L 11/25/2022 8:58 AM [facility] Anion Gap (AG) Arterial 12 8 - 18 mmol/L 11/25/2022 8:58 AM [facility] Glucose WB 151(H) 70 - 105 mg/dL 11/25/2022 8:58 AM [facility] Lactic Acid Whole Blood 0.9 <=2.0 mmol/L 11/25/2022 8:58 AM [facility] Blood, arterial ARTERIAL BLOOD SPECIMEN / Unknown 11/25/2022 8:[address] [facility] 11/25/2022 8:[address] [facility] Rbobie Mccann MD LAB - POINT OF CARE ORDERABLES Performing Organization Address City/State/[facility] Co de Phone Number [facility] [address] [place] [address], [place] [phone] * BLOOD GAS KACIE+LYTES+METAB+COOX POC NOTIF (11/25/2022 8:46 AM CDT) Comment Notification Label Only - See Separate Report 11/25/2022 10:00 AM CDT [facility] Other MISCELLANEOUS SAMPLES / Unknown 11/25/2022 8:46 AM CDT 11/25/2022 8:55 AM CDT Lyndsey Moore MD LAB - BLOOD GASES OR DERABLES [facility] [address] [place] [address], [facility] [phone] * ETT LINE PERFORMABLE (11/25/2022 8:35 AM CDT) Narrative Kristen Donato APRN-CRNA - 11/25/2022 8:35 AM CDT Kristen Donato APRN-CRNA 11/25/2022 8:35 AM Endotracheal Tube Placement: Patient Location: OR. Intubation Event Date/Time: 11/25/2022 7:36 AM Procedure: intubation ([id number]). Procedure Section: Sedation: under general anesthesia. Indications for Airway Management: anesthesia Procedure pretreatments used? No Induction: standard IV Patient Position: sniffing Mask Ventilation: easy. Blade Type: Karyn Blade Size: 3 Laryngoscopy View: grade 1 (full cords) Intubation Adjuncts: stylet Tube: endotracheal tube Placement: oral Tube type: cuff - inflated Tube Size (MM): 7 Depth of Insertion (CM): 22 Measured From: gums Cuff volume (mL): 5 Cuff Inflated With: air Number of Attempts: 1. Placement Verified By: direct visualization, bilateral breath sounds and CO2 monitor Tube secured with: adhesive tape. Dentition unchanged? Yes Difficult Airway? No. Procedure Start Time: 11/25/2022 7:36 AM. Staff Section Anesthesia Provider: Kristen Donato APRN-CRNA, Performed the procedure Lyndsey Moore MD GENERAL ANESTHESIA O RDERABLES * TYPE + SCREEN PANEL (11/25/2022 6:42 AM CDT) Only the most recent of3 resultswithin the time period is included. Antibody Screen NEG 7:33 AM CDT [facility] ABO Rh O POS 11/25/2022 7:33 AM CDT [facility] Blood Bank BLOOD SPECIMEN / Unknown Venipuncture / Unknown 11/25/2022 6:42 AM CDT 11/25/2022 6:47 AM CDT Robbie Mccann MD LAB - BLOOD BANK ORD ERABLES [facility] [address] [place] [address], [facility] [phone] * CT HUMERUS LEFT WO CONTRAST (10/20/2022 3:41 PM CDT) Anatomical Region Laterality Modality Upper Extremity Computed Tomogra phy 10/20/2022 3:49 PM CDT Impressions 10/20/2022 5:24 PM CDT IMPRESSION: 1. Moderately displaced and angulated fracture of the proximal to mid humeral shaft. The fracture is unhealed without bridging callus. 2. Mildly displaced radial head fracture, incompletely healed. > Interpreting Provider: Guille Whitlock MD on 10/20/2022 5:24 PM Narrative 10/20/2022 5:24 PM CDT PROCEDURE: CT HUMERUS LEFT WO CONTRAST, DATE/TIME OF EXAM: 10/20/2022 3:42 PM, LOCATION [facility] INDICATION: S42.352G: Closed displaced comminuted fracture of shaft of left humerus with delayed healing, subsequent encounter ADDITIONAL CLINICAL INFORMATION: Ordering Provider Reason For Exam: preop planning for nonunion repair Technologist Note: Additional: COMPARISON: Left humerus x-rays dated 10/13/2022. TECHNIQUE: CT of the [left humerus] was performed utilizing standard protocol. CT dose reduction technique was used, including Automated Exposure Control. FINDINGS: A mildly comminuted fracture of the proximal to mid shaft of the humerus is again demonstrated. The fracture is moderately displaced. Angulation measures up to 35 degrees in the sagittal plane. There is callus at the fracture site, but no bridging callus. Mild degenerative change is noted at the shoulder. There is a mildly displaced fracture of the head of the radius which appears subacute and incompletely healed. Procedure Note Guille Whitlock MD - 10/20/2022 PROCEDURE: CT HUMERUS LEFT WO CONTRAST, DATE/TIME OF EXAM: :42 PM, LOCATION [facility] INDICATION: S42.352G: Closed displaced comminuted fracture of shaft of left humerus with delayed healing, subsequent encounter ADDITIONAL CLINICAL INFORMATION: Ordering Provider Reason For Exam: preop planning for nonunion repair Technologist Note: Additional: COMPARISON: Left humerus x-rays dated 10/13/2022. TECHNIQUE: CT of the [left humerus] was performed utilizing standard protocol. CT dose reduction technique was used, including Automated ExposureControl. FINDINGS: A mildly comminuted fracture of the proximal to mid shaft of the humerusis again demonstrated. The fracture is moderately displaced. Angulation measures up to 35 degrees in the sagittal plane. There is callus at the fracture site, but no bridging callus. Mild degenerative change is notedat the shoulder. There is a mildly displaced fracture of the head of the radius which appears subacute and incompletely healed. IMPRESSION: 1. Moderately displaced and angulated fracture of the proximal to mid humeral shaft. The fracture is unhealed without bridging callus. 2. Mildly displaced radial head fracture, incompletely healed. > Interpreting Provider: Guille Whitlock MD on 10/20/2022 5:[address] ORDERABLES * CARDIAC EKG ORDER (08/08/2022 8:26 AM FACILITIES PROJECT MANAGER) Narrative 08/08/2022 8:26 AM FACILITIES PROJECT MANAGER Ordered by an unspecified provider. Scanned Document CARDIAC SERVICES ORD ERABLES * SARS-COV-2 (COVID-19) RAPID (08/05/2022 8:57 AM FACILITIES PROJECT MANAGER) Only the most recent of3 resultswithin the time period is included. COVID-19 PCR Not detected Not detected 08/05/19 23 9:58 AM FACILITIES PROJECT MANAGER [facility] Microbiology SPECIMEN FROM NASOPHARYNGEAL STRUCTURE / Unknown Collection / Unknown 08/05/2022 8:57 AM FACILITIES PROJECT MANAGER 08/05/2022 9:05 AM FACILITIES PROJECT MANAGER Narrative [facility] - 08/05/2022 9:58 AM FACILITIES PROJECT MANAGER The Cepheid Xpert Xpress SARS-COV-2 has been authorized by the Food and Drug Administration (FDA) under an Emergency Use Authorization (EUA). This test has been validated in accordance with the FDA's guidance document Policy for Diagnostic Testing in Laboratories Certified to perform High Complexity Testing under CLIA prior to Emergency Use Authorization for Coronavirus Disease-2019 during the Public Health Emergency issued on September 17, 2019. FDA independent review of this validation is pending. This test is only authorized for the duration of the time the declaration that circumstances exist justifying the authorization of emergency use of in vitro diagnostic tests for detection of SARS-COV-2 virus and/or diagnosis of COVID-19 infection under 564(b) (1) of the Act. 21 U.S.C. 360bbb-3 (b) (1), unless the authorization is terminated or revoked sooner. Fact Sheets for this EUA assay are available upon request. Phani Funk MD LAB - MICROBIO LOGY ORDERABLES [address] [address], [facility] [phone] * XR WRIST LEFT 3VW OR MORE (07/29/2022 10:30 AM FACILITIES PROJECT MANAGER) Anatomical Region Laterality Modality Wrist / Hand Radiographic Sade ging 07/29/2022 11:1 4 AM FACILITIES PROJECT MANAGER Impressions 07/29/2022 11:15 AM FACILITIES PROJECT MANAGER IMPRESSION: There is a well-corticated ossicle at the ulnar styloid that could represent a chronic fracture or an accessory ossicle. 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 No acute fracture. There is mild dorsal soft tissue swelling. > Interpreting Provider: John Menchaca MD on 07/29/2022 11:15 AM Narrative 07/29/2022 11:15 AM FACILITIES PROJECT MANAGER PROCEDURE: XR WRIST LEFT 3VW OR MORE, DATE/TIME OF EXAM: 07/29/2022 10:40 AM, LOCATION [facility] INDICATION: W19.XXXA: Fall, initial encounter ADDITIONAL CLINICAL INFORMATION: Ordering Provider Reason For Exam: fall with left humerus fracture and having wrist pain that is limiting function. COMPARISON: None. Procedure Note John Menchaca MD - 07/29/2022 PROCEDURE: XR WRIST LEFT 3VW OR MORE, DATE/TIME OF EXAM: 310:40 AM, LOCATION [facility] INDICATION: W19.XXXA: Fall, initial encounter ADDITIONAL CLINICAL INFORMATION: Ordering Provider Reason For Exam: fall with left humerus fracture and having wrist pain that is limiting function. COMPARISON: None. IMPRESSION: There is a well-corticated ossicle at the ulnar styloid that could represent a chronic fracture or an accessory ossicle. 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 No acute fracture. There is mild dorsal soft tissue swelling. > Interpreting Provider: John Menchaca MD on 07/29/2022 11:15 AM Alex Villa DO DIAGNOSTIC IMAGING O RDERABLES * (ABNORMAL) URINALYSIS REFLEX TO MICROSCOPIC NO CULTURE (07/28/2022 11:19 AM FACILITIES PROJECT MANAGER) Color UA Yellow Straw, Yellow 07/28/2022 11:36 AM [facility] Clarity UA Cloudy(A) Clear 07/28/2022 11:36 AM [facility] [facility] Specific Fine UA 1.011 1.005 - 1.030 07/28/2022 11:36 AM [facility] pH UA 5.0 5.0 - 8.0 pH 07/28/2022 11:36 AM [facility] Protein UA Negative Negative 07/28/2022 11:36 AM [facility] Glucose UA Negative Negative 07/28/2022 11:36 AM [facility] Ketone UA Negative Negative 07/28/2022 11:36 AM [facility] Bilirubin UA Negative Negative 07/28/2022 11:36 AM [facility] Blood UA 1+(A) Negative 07/28/2022 11:36 AM [facility] Nitrite UA Negative Negative 07/28/2022 11:36 AM [facility] Leukocyte Esterase 3+(A) Negative 07/28/2022 11:36 AM [facility] Urobilinogen UA Negative Negative mg/dL 07/28/2022 11:36 AM [facility] RBC UA 6-10(A) None Seen, 0-2, 3-5 /HPF 07/28/2022 11:36 AM [facility] WBC UA >100(A) None Seen, 0-5 /HPF 07/28/2022 11:36 AM [facility] Bacteria UA 3+(A) None /HPF 07/28/2022 11:36 AM [facility] Squamous Epithelial Cells UA 3-5 None Seen, 0-2, 3-5 /HPF 07/28/2022 11:36 AM [facility] Mucus UA 1+ /LPF 07/28/2022 11:36 AM [facility] Urine URINE SPECIMEN OBTAINED BY CLEAN CATCH PROCEDURE / Unknown Collection / Unknown 07/28/2022 11:19 AM FACILITIES PROJECT MANAGER 07/28/2022 11:22 AM FACILITIES PROJECT MANAGER Narrative [facility] - 07/28/2022 11:36 AM FACILITIES PROJECT MANAGER Chago Leroy MD LAB - URINALYSIS ORD ERABLES [address] [address], [facility] [phone] * TRANSFUSE RED BLOOD CELL LEUKOREDUCED UNIT(S) (07/25/2022 5:13 PM FACILITIES PROJECT MANAGER) Kashif Marquez MD NURSING - BLOOD PROD TRANSFUSION * PREPARE (CROSSMATCH) RBC UNIT(S), 1 Units (07/25/2022 2:32 PM FACILITIES PROJECT MANAGER) Only the most recent of4 resultswithin the time period is included. Unit Description AS1 LR PRBC [facility] Unit ABO O [facility] Unit Rh POS [facility] Product Number R44 [facility] Unit Donor # [id number] [facility] Unit Status transfused [facility] Product Code [id number] [facility] Blood Type Barcode 5100 [facility] Expiration Date S BLOOD BANK LAB Blood Bank BLOOD SPECIMEN / Unknown 07/25/2022 8:32 AM FACILITIES PROJECT MANAGER Kashif Marquez MD LAB - BLOOD BANK ORD ERABLES [facility] [address] [place] [address], [facility] [phone] * SMOOTH MUSCLE ANTIBODY W REFLEX TITER (07/24/2022 4:12 AM FACILITIES PROJECT MANAGER) F-Actin Antibody IgG 3 0 - 19 Units 07/26/2022 12:05 AM FACILITIES PROJECT MANAGER [facility] ([facility]) Comment: If F-Actin (Smooth Muscle) Antibody, IgG is negative, the Smooth Muscle Antibody titer by IFA is not performed. REFERENCE INTERVAL: F-Actin (Smooth Muscle) Antibody, IgG by ANITRA 19 Units or less ....... Negative 20 - 30 Units .......... Weak Positive-Suggest repeat testing in two to three weeks with fresh specimen. 31 Units or greater..... Positive-Suggestive of autoimmune hepatitis type 1 or chronic active hepatitis. F-actin IgG antibodies have been shown to have increased sensitivity for autoimmune hepatitis (AIH) but lower specificity than smooth muscle antibodies (SMA). F-actin IgG antibodies can also be seen in SMA-negative disease controls (non-AIH), especially in patients with primary biliary cirrhosis and chronic hepatitis C infections. Some patients with AIH may be SMA-positive but negative for F-actin IgG. Consider testing for SMA by IFA if suspicion for AIH is strong. Performed By: [facility] [address] [place] [address] Diesel Technician: Eric Isbell MD, PhD Blood BLOOD SPECIMEN / Unknown Venipuncture / Unknown 07/24/2022 4:12 AM FACILITIES PROJECT MANAGER 07/24/2022 4:46 AM FACILITIES PROJECT MANAGER Sarabjit Gutierrez MD LAB - SEROLOGY ORDERABLES [facility]) [address] [place], [place] [id number] [place] [address] * MITOCHONDRIAL ANTIBODY SCREEN (07/24/2022 4:12 AM FACILITIES PROJECT MANAGER) Mitochondrial M2 Antibody 1.0 0.0 - 24.9 Units 07/26/2022 12:06 AM FACILITIES PROJECT MANAGER [facility] ([facility]) Comment: REFERENCE INTERVAL: Mitochondrial (M2) Antibody, IgG 20.0 Units or less ......... Negative 20.1 - 24.9 Units........... Equivocal 25.0 Units or greater....... Positive Anti-mitochondrial antibodies (AMA) are thought to be present in 90-95% of patients with primary biliary cholangitis (PBC). However, the frequency of detected antibodies may be cohort or assay dependent, as lower sensitivities have been reported. Not all PBC patients are positive for AMA; some patients may be positive for SP100 and/or GP210 antibodies. A negative result does not rule out PBC. Performed By: [facility] [address] [place] [address] Diesel Technician: Eric Isbell MD, PhD Blood BLOOD SPECIMEN / Unknown Venipuncture / Unknown 07/24/2022 4:12 AM FACILITIES PROJECT MANAGER 07/24/2022 4:37 AM FACILITIES PROJECT MANAGER Sarabjit Gutierrez MD LAB - CHEMISTRY ORDERABLES [facility] [employer] [facility]) [address] [place] [address], [facility] * MATTIE BLOOD SCREEN W/REFLEX TITER (07/24/2022 4:12 AM FACILITIES PROJECT MANAGER) Pathologist [facility] MATTIE IgG None Detected None Detected 07/25/2022 11:18 PM FACILITIES PROJECT MANAGER [facility] [employer] ([facility]) Comment: If suspicion of connective tissue disease is strong and MATTIE EIA is negative, consider testing for MATTIE by IFA ([id number]). INTERPRETIVE INFORMATION: Anti-Nuclear Antibodies (MATTIE), IgG by ANITRA Antinuclear Antibodies (MATTIE), IgG by ANITRA: MATTIE specimens are screened using enzyme-linked immunosorbent assay (ANITRA) methodology. All ANITRA results reported as Detected are further tested by indirect fluorescent assay (IFA) using HEp-2 substrate with an IgG-specific conjugate. The MATTIE ANITRA screen is designed to detect antibodies against dsDNA, histones, SS-A (Ro), SS-B (La), Conley, Conley/DIETETIC AIDE, Scl-70, Martha-1, centromeric proteins, other antigens extracted from the HEp-2 cell nucleus. MATTIE ANITRA assays have been reported to have lower sensitivities than MATTIE IFA for systemic autoimmune rheumatic diseases (SARD). Negative results do not necessarily rule out SARD. Performed By: [facility] [address] [place] [address] Diesel Technician: Eric Isbell MD, PhD Blood BLOOD SPECIMEN / Unknown Venipuncture / Unknown 07/24/2022 4:12 AM FACILITIES PROJECT MANAGER 07/24/2022 4:46 AM FACILITIES PROJECT MANAGER Sarabjit uGtierrez MD LAB - CHEMISTRY ORDERABLES Performing Organization Address [facility] Co de Phone Number [facility] [employer] [facility]) [address] [place] [address] * (ABNORMAL) GASTRIN (07/24/2022 4:12 AM FACILITIES PROJECT MANAGER) Gastrin 174(H) 0 - 100 pg/mL 07/26/2022 3:11 AM FACILITIES PROJECT MANAGER [facility] ([facility]) Comment: Performed By: [facility] [address] [place] [address] Diesel Technician: Eric Isbell MD, PhD Blood BLOOD SPECIMEN / Unknown Venipuncture / Unknown 07/24/2022 4:12 AM FACILITIES PROJECT MANAGER 07/24/2022 4:37 AM FACILITIES PROJECT MANAGER Sarabjit Gutierrez MD LAB - CHEMISTRY ORDERABLES Performing Organization Address [facility] Co de Phone Number [facility]) [address] [place] [address] * CERULOPLASMIN (07/24/2022 4:12 AM FACILITIES PROJECT MANAGER) Ceruloplasmin 32 20 - 60 mg/dL 07/24/2022 5:46 AM FACILITIES PROJECT MANAGER [facility] Blood BLOOD SPECIMEN / Unknown Venipuncture / Unknown 07/24/2022 4:12 AM FACILITIES PROJECT MANAGER 07/24/2022 4:37 AM FACILITIES PROJECT MANAGER Sarabjit Gutierrez MD LAB - CHEMISTRY ORDERABLES [address] [address], [place] [phone] * (ABNORMAL) [id number] BLOOD (07/24/2022 4:12 AM FACILITIES PROJECT MANAGER) Hzyjo-1-Slejps ypsin 334(H) 90 - 200 mg/dL 07/24/2022 5:30 AM [facility] Comment:Result obtained by arabella torrez. Blood BLOOD SPECIMEN / Unknown Venipuncture / Unknown 07/24/2022 4:12 AM FACILITIES PROJECT MANAGER 07/24/2022 4:37 AM FACILITIES PROJECT MANAGER Sarabjit Gutierrez MD LAB - CHEMISTRY ORDERABLES Performing Organization Address City/[facility]/ZIP Co de Phone Number [address] [address], [place] [phone] * GGT (07/24/2022 4:12 AM FACILITIES PROJECT MANAGER) GGT 14 9 - 64 Units/L 07/24/2022 4:51 AM [facility] Blood BLOOD SPECIMEN / Unknown Venipuncture / Unknown 07/24/2022 4:12 AM FACILITIES PROJECT MANAGER 07/24/2022 4:24 AM FACILITIES PROJECT MANAGER Sarabjit Gutierrez MD LAB - CHEMISTRY ORDERABLES [address] [address], [place] [phone] * (ABNORMAL) IRON + TRANSFERRIN PANEL (07/24/2022 4:12 AM FACILITIES PROJECT MANAGER) Iron 23(L) 40 - 150 ug/dL 07/24/2022 4:52 AM [facility] Transferrin 134(L) 174 - 382 mg/dL 07/24/2022 4:52 AM [facility] Transferrin Saturation % 14(L) 16 - 50 % 07/24/2022 4:52 AM [facility] TIBC Calculated 168(L) 240 - 450 ug/dL 07/24/2022 4:52 AM [facility] Blood BLOOD SPECIMEN / Unknown Venipuncture / Unknown 07/24/2022 4:12 AM FACILITIES PROJECT MANAGER 07/24/2022 4:37 AM FACILITIES PROJECT MANAGER Sarabjit Gutierrez MD LAB - CHEMISTRY ORDERABLES Performing Organization Address City/[facility]/ZIP Co de Phone Number [address] [address], [facility] [phone] * HEPATITIS SCREEN ACUTE (07/24/2022 4:12 AM FACILITIES PROJECT MANAGER) Hepatitis A Virus Antibody IgM Non-react bartolome Non-reac tive 07/24/2022 5:11 AM [facility] Hepatitis B Virus Surface Antigen Non-react bartolome Non-reac tive 07/24/2022 5:11 AM [facility] Hepatitis B Core Virus Antibody IgM Non-react bartolome Non-reac tive 07/24/2022 5:11 AM [facility] Hepatitis C Antibody Non-react bartolome Non-reac tive 07/24/2022 5:11 AM [facility] Comment:Hepatitis C Antibody screen indicates no serologic evidence of past or current infection with Hepatitis C Virus. Patients with unexplained liver disease who are immunocompromised or suspected of having acute Hepatitis C infection may benefit from Nucleic Acid Test (CHA) for Hepatitis C Viral RNA to confirm Hepatitis C status. Blood BLOOD SPECIMEN / Unknown Venipuncture / Unknown 07/24/2022 4:12 AM FACILITIES PROJECT MANAGER 07/24/2022 4:37 AM FACILITIES PROJECT MANAGER Sarabjit Gutierrez MD LAB - CHEMISTRY ORDERABLES [address] [address], [place] [phone] * (ABNORMAL) FERRITIN (07/24/2022 4:12 AM FACILITIES PROJECT MANAGER) Ferritin 278(H) 13 - 204 ng/mL 07/24/2022 5:11 AM [facility] Blood BLOOD SPECIMEN / Unknown Venipuncture / Unknown 07/24/2022 4:12 AM FACILITIES PROJECT MANAGER 07/24/2022 4:37 AM FACILITIES PROJECT MANAGER Sarabjit Gutierrez MD LAB - CHEMISTRY ORDERABLES Performing Organization Address City/[facility]/ZIP Co de Phone Number [facility] [address] [place] [address], [facility] [phone] * (ABNORMAL) TRIGLYCERIDES BLOOD (07/23/2022 3:02 AM FACILITIES PROJECT MANAGER) Triglycerides 151(H) <150 mg/dL 07/23/2022 3:39 AM [facility] Comment: ATP III Classification of Triglycerides: <150 mg/dL: Normal 150 - 199 mg/dL: Borderline High 200 - 400 mg/dL: High >500 mg/dL: Very High Blood BLOOD SPECIMEN / Unknown Venipuncture / Unknown 07/23/2022 3:02 AM FACILITIES PROJECT MANAGER 07/23/2022 3:12 AM FACILITIES PROJECT MANAGER Antonia Iqbal MD LAB - CHEMISTRY ORDE JONATHAN Performing Organization Address [facility] Co de Phone Number [facility] [address] [place] [address], [facility] [phone] * EKG 12-LEAD (07/22/2022 7:32 AM FACILITIES PROJECT MANAGER) Only the most recent of2 resultswithin the time period is included. Ventricular Rate 92 BPM [facility] Atrial Rate 92 BPM [facility] P-R Interval 184 ms [facility] QRS Duration ms 100 ms [facility] Q-T Interval ms 388 ms [facility] QTC Calculation (Bezet) 479 ms [facility] Calculated P [place] 14 degrees [facility] Calculated R [place] -16 degrees [facility] Calculated T [place] 87 degrees [facility] Interpretation EKG NORMAL SINUS RHYTHM CANNOT RULE OUT ANTERIOR INFARCT (CITED ON OR BEFORE 11-JUL-2022) NON-SPECIFIC INTRA-VENTRICUL AR CONDUCTION DELAY NONSPECIFIC ST & T WAVE CHANGES ABNORMAL ECG WHEN COMPARED WITH ECG OF 11-JUL-2022 20:39, SINUS RHYTHM HAS REPLACED ATRIAL FIBRILLATION Confirmed by fellow EMMANUEL POLK MD ([id number]) on 07/23/2022 10:37:00 AM Confirmed by SILVANO DIAZ MD ([id number]) on 07/23/2022 1:32:51 PM [facility] 07/22/2022 7:32 AM FACILITIES PROJECT MANAGER 07/23/2022 1:32 PM FACILITIES PROJECT MANAGER Antonia Iqbal MD ECG ORDERABLES Performing Organization Address [facility] Co de Phone Number [facility] * HELICOBACTER PYLORI ANTIGEN FECES (07/21/2022 4:44 PM FACILITIES PROJECT MANAGER) Helicobacter pylori Antigen Stool Negative Negative 07/23/2022 11:31 PM FACILITIES PROJECT MANAGER [facility] ([facility]) Comment: Performed By: [facility] [address] [place] [address] Diesel Technician: Eric Isbell MD, PhD Stool STOOL SPECIMEN / Unknown Collection / Unknown 07/21/2022 4:44 PM FACILITIES PROJECT MANAGER 07/21/2022 4:48 PM FACILITIES PROJECT MANAGER Antonia Iqbal MD LAB - MICROBIOLOGY O RDERABLES Performing Organization Address [facility] de Phone Number [facility] [employer] [address] * (ABNORMAL) BLOOD GASES ART + COOX PANEL (07/21/2022 2:44 PM FACILITIES PROJECT MANAGER) pH Arterial 7.47(H) 7.35 - 7.45 pH 07/21/2022 2:48 PM FACILITIES PROJECT MANAGER [facility] pO2 Arterial 127(H) 80 - 100 mmHg 07/21/2022 2:48 PM FACILITIES PROJECT MANAGER [facility] pCO2 Arterial 23(L) 35 - 45 mmHg 2:48 PM FACILITIES PROJECT MANAGER [facility] HCO3 Arterial 17(L) 20 - 30 mmol/l 07/21/2022 2:48 PM FACILITIES PROJECT MANAGER [facility] BE Arterial -5.9(L) -2.0 - 2.0 mmol/L 07/21/2022 2:48 PM FACILITIES PROJECT MANAGER [facility] Oxyhemoglobin Arterial 96.9 % 07/21/2022 2:48 PM [facility] Dexoyhemoglobin (HHB) % 0.2 % 07/21/2022 2:48 PM [facility] Methemoglobin 1.2 0.0 - 2.0 % 07/21/2022 2:48 PM [facility] Carboxyhemoglobin 1.7 0.0 - 2.0 % 2022 2:48 PM [facility] O2 Content Arterial 12.1 Interpret within clinical context ml/dL 07/21/2022 2:48 PM [facility] Hemoglobin by COOX 8.7(L) 12.0 - 15.6 g/dL 07/21/2022 2:48 PM [facility] O2 Saturation Arterial 100 90 - 100 % 07/21/2022 2:48 PM [facility] FI O2 Arterial 30.0 % 07/21/2022 2:48 PM [facility] Blood, arterial ARTERIAL BLOOD SPECIMEN / Unknown Arterial Puncture / Unknown 07/21/2022 2:44 PM FACILITIES PROJECT MANAGER 07/21/2022 2:47 PM [facility] - 07/21/2022 2:48 PM [facility] Carboxyhemoglobin Normal Concentration: Non-smokers: 0-2%; Smokers: 0-9%; Toxic: >20% Antonia Iqbal MD LAB - BLOOD GASES OR DERABLES [facility] [address] [place] [address], [facility] [phone] * EGD (07/21/2022 1:21 PM FACILITIES PROJECT MANAGER) Report Endoscopy POC Endoscopy Department Report __ _ Patient Name: Kerline Mohan Procedure Date: 07/21/2022 1:21 PM Date of : 1955 Classification: Inpatient Gender: Female Ethnicity: Not or Race: White __ _ Providers: Katie Sheridan (Fellow), Shay Black (Fellow) Referring MD: Procedure: Upper GI endoscopy Indications: Active gastrointestinal bleeding Medications: Propofol per ICU team Comorbidities Atrial fibrillation on Apixaban Patient Profile: This is a 67 year old female. Description of Procedure: After obtaining informed consent, the endoscope was passed under direct vision. Throughout the procedure, the patient's blood pressure, pulse, and oxygen saturations were monitored continuously. The [id number] was introduced through the mouth, and advanced to the second part of duodenum. Findings: Esophagogastric landmarks were identified: the Z-line was found at 38 cm, the gastroesophageal junction was found at 38 cm and the site of hiatal narrowing was found at 38 cm from the incisors. A single less than 5 mm erosion was found at the gastroesophageal junction. Initially, the erosion was oozing minimally. This spontaneously resolved after washing and examination of the erosion. Hematin (altered blood/coffee-ground -like material) was found in the entire examined stomach. This was washed and suctioned incompletely. No other significant abnormalities were identified in a careful examination of the stomach. The cardia and gastric fundus were otherwise normal on retroflexion. Multiple (>6) non-bleeding superficial duodenal ulcers with adherent clot were found in the duodenal bulb, and first part of the duodenum/duodenal sweep. The largest lesion was 12 mm in largest dimension. Area was successfully injected with 5 mL of a 1:10,000 solution of epinephrine for hemostasis. For hemostasis, two hemostatic clips were successfully placed. There was no bleeding during, or at the end, of the procedure. A non-bleeding superficial duodenal ulcer with pigmented material was found in the duodenal bulb as well. The lesion was 10 mm in largest dimension. This was treated with Bipolar cautery for hemostatis. No bleeding was present at the end of this. Three small-large non-bleeding diverticuli were found in the second portion of the duodenum. Estimated Blood Loss: Estimated blood loss was minimal. Complications: No immediate complications. Impression: - A single small erosion at the gastroesophageal junction with minimal oozing, spontaneously stopped. - Hematin (altered blood/coffee-ground -like material) in the entire stomach. Suctioned incompletely. - Multiple duodenal ulcers were noted with the largestsone measuring 12 mm in the duodenal bulb, this had adherent clot, injected with Epinephrine and two clips were placed for hemostasis. - Another 10 mm duodenal bulb ulcer with pigmented spot, this was treated with Bipolar cautery. - The two largest duodenal bulb ulcers are the suspected source of recent bleeding. - The remainder of the duodenal ulcers were found in the bulb and first part, they were clean-based with no active bleeding and were varying in size from 2-7 mm. - Non-bleeding duodenal diverticuli noted in the second portion of the duodenum near the ampulla. Recommendation: - Return patient to ICU for ongoing care. Recommend maintaining intubation for the next 24 hours until re-assessment by GI. - Continue present medications with IV Protonix 40 mg BID for 72 hours. Can change to PO and continue for at least 3 months afterwards prior to changing to once daily. - No aspirin, ibuprofen, naproxen, or other non-steroidal anti-inflammatory drugs. - Obtain H.pylori stool antigen, treat H.pylori if positive. - Continue to hold Apixaban for now as the patient is at high risk for re-bleeding. - Expect to see melena over the next 24 hours (incomplete emptying of the stomach during exam). - Monitor hemodynamics and CBC, if evidence of recurrent bleeding with requirement of transfusion, hemodynamic changes, patient will need IR to embolize the ulcer sites. Attending Participation: I was present and participated during the entire procedure, including non-mancuso portions. Procedure Code(s): --- Professional --- 25859, Esophagogastroduode noscopy, flexible, transoral; with control of bleeding, any method Diagnosis Code(s): --- Professional --- K22.11, Ulcer of esophagus with bleeding K92.2, Gastrointestinal hemorrhage, unspecified K26.4, Chronic or unspecified duodenal ulcer with hemorrhage K26.9, Duodenal ulcer, unspecified as acute or chronic, without hemorrhage or perforation I48.91, Unspecified atrial fibrillation K57.10, Diverticulosis of small intestine without perforation or abscess without bleeding CPT copyright 2019 [employer]. All rights reserved. The codes documented in this report are preliminary and upon medical biller/coder review may be revised to meet current compliance requirements. Henry Swanson, 07/21/2022 3:06:26 PM Note Initiated On: 07/21/2022 1:21 PM Number of Addenda: [address] [address] [facility] 07/21/2022 1:21 PM FACILITIES PROJECT MANAGER Antonia Iqbal MD GI PROCEDURE ORDERAB LES Performing Organization Address [facility] Co de Phone Number [facility] * (ABNORMAL) TEG 6 GLOBAL HEMOSTASIS W/ LYSIS (07/21/2022 12:22 PM FACILITIES PROJECT MANAGER) Citrated Kaolin R (Reaction Time) 4.2(L) 4.6 - 9.1 min 07/21/2022 1:30 PM FACILITIES PROJECT MANAGER [facility] Comment:CK R result below no rmal range. Consistent with hypercoagulable clotting factors. Citrated Kaolin LY30 (Lysis) 0.0 0.0 - 2.6 % 07/21/2022 1:30 PM FACILITIES PROJECT MANAGER [facility] Citrated Functional Fibrinogen MA (Max Amplitude) 41.7(H) 15.0 - 32.0 mm 07/21/2022 1:30 PM [facility] Comment:CFF MA above normal range. Consistent with elevated fibrinogen contribution to clot strength. Citrated RapidTEG MA (Max Amplitude) 69.8 52.0 - 70.0 mm 07/21/2022 1:30 PM FACILITIES PROJECT MANAGER [facility] Blood BLOOD SPECIMEN / Unknown Venipuncture / Unknown 07/21/2022 12:22 PM FACILITIES PROJECT MANAGER 07/21/2022 12:31 PM FACILITIES PROJECT MANAGER Antonia Iqbal MD LAB - HEMATOLOGY ORD ERABLES Performing Organization Address City/[facility]/ZIP Co de Phone Number [address] [address] [phone] * CT ANGIO ABDOMEN PELVIS (07/21/2022 10:11 AM FACILITIES PROJECT MANAGER) Anatomical Region Laterality Modality Abdomen, Pelvis Computed Tomogra phy 07/21/2022 10:2 3 AM FACILITIES PROJECT MANAGER Impressions 07/21/2022 12:53 PM FACILITIES PROJECT MANAGER Impression 1. Hyperdense layering content in the gastric outlet seen on the arterial phase and not definitively seen on the noncontrast CT. However, layering appearance and density favors ingested material moving through the stomach rather than active arterial extravasation. This does not expand on the venous phase. 2. Large complex peptic ulcer involving the second portion of the duodenum measuring up to 4.6 cm. No active arterial bleeding is seen. No free intraperitoneal gas. 3. Multiple diverticuli of the distal ileum with focal inflammation or fat stranding and enlarged lymph nodes adjacent to a diverticulum of the distal ileum, favored to represent ileal diverticulitis. Note that Meckel's diverticulitis could have a similar appearance given the location, although less likely given the small size of the diverticulum and presence of other diverticula of the terminal ileum. 4. Multiple splenic varices with splenorenal shunting. Mildly nodular liver surface could represent hepatic parenchymal disease. These findings were discussed in detail with the patient's care provider, Dr. Hubbard by Dr. Bernard via telephone at 12:50 PM on 07/21/2022 with readback comprehension and verification. > Dictated by Lou Bernard M.D. (rn residential). I, John Menchaca MD have personally reviewed and interpreted this examination/study. > Interpreting Provider: John Menchaca MD on 07/21/2022 12:53 PM Narrative 07/21/2022 12:53 PM FACILITIES PROJECT MANAGER PROCEDURE: CT ANGIO ABDOMEN PELVIS, DATE/TIME OF EXAM: 07/21/2022 10:12 AM, LOCATION [facility] INDICATION: K92.2: Lower GI bleed ADDITIONAL CLINICAL INFORMATION: Ordering Provider Reason For Exam: lower gi bleed COMPARISON: None. Findings Abdominal aorta: There is no aortic dissection, intramural hematoma, penetrating atherosclerotic ulcer, or aneurysm. The aorta is normal in course and caliber. Abdominal aortic branches: Celiac axis: Atherosclerotic but patent without significant focal stenosis. Superior mesenteric artery: Atherosclerotic with moderate multifocal stenoses. Inferior mesenteric artery: Atherosclerotic but patent without significant focal stenosis. Right renal artery: Atherosclerotic with mild multifocal stenoses. Left renal artery: Atherosclerotic with mild multifocal stenoses. Right common iliac artery: Atherosclerotic but patent without significant focal stenosis. Right external iliac artery: Atherosclerotic but patent without significant focal stenosis. Right internal iliac artery: Atherosclerotic with moderate multifocal stenoses. Left common iliac artery: Atherosclerotic but patent without significant focal stenosis. Left external iliac artery: Atherosclerotic but patent without significant focal stenosis. Left internal iliac artery: Atherosclerotic with mild multifocal stenoses. Lower Chest: Normal. Liver: The liver surface is nodular. Gallbladder and Bile Ducts: Normal. No evidence of gallstones or pericholecystic fluid. No intrahepatic or extra hepatic bile duct dilatation. Kidneys: Multiple simple renal cysts bilaterally. No renal calculi or hydronephrosis. Adrenals: Normal. Spleen: Normal. Pancreas: Multiple calcifications within the pancreas, likely consistent with prior or chronic pancreatitis. Gastrointestinal: There is a hyperdensity in the distal stomach (series 6, image 41), which is not present on the noncontrast exam. However, there is no expansion on the venous phase in appearance and density favors ingested material layering in the stomach rather than active arterial bleeding. There is a large complex peptic ulcer involving the second portion of the duodenum that measures up to 4.6 x 3.1 cm with mild associated fat stranding. No active arterial bleeding is identified. There is focal fat stranding and prominent lymph nodes adjacent to a small tubular diverticulum arising from the distal ileum. This is best seen on series 10 image 43. There are multiple other diverticula seen in the distal ileum. Appendix: The appendix is not definitively identified. Pelvic Structures: A uterus is present. There is a 4.6 cm right-sided and 2.1 cm left-sided adnexal cyst. There is no pelvic free fluid or enlarged lymphadenopathy. Bones: Bone windows demonstrate no suspicious lytic or blastic lesions. The visible osseous structures are intact. Soft tissues: Normal. Vascular: There are multiple perisplenic varices and splenorenal shunting. Procedure Note John Menchaca MD - 07/21/2022 PROCEDURE: CT ANGIO ABDOMEN PELVIS, DATE/TIME OF EXAM: 07/21/2022 10:12AM, LOCATION [facility] INDICATION: K92.2: Lower GI bleed ADDITIONAL CLINICAL INFORMATION: Ordering Provider Reason For Exam: lower gi bleed COMPARISON: None. Findings Abdominal aorta: There is no aortic dissection, intramural hematoma, penetrating atherosclerotic ulcer, or aneurysm. The aorta is normal in course and caliber. Abdominal aortic branches: Celiac axis: Atherosclerotic but patent without significant focalstenosis. Superior mesenteric artery: Atherosclerotic with moderate multifocal stenoses. Inferior mesenteric artery: Atherosclerotic but patent withoutsignificant focal stenosis. Right renal artery: Atherosclerotic with mild multifocal stenoses. Left renal artery: Atherosclerotic with mild multifocal stenoses. Right common iliac artery: Atherosclerotic but patent withoutsignificant focal stenosis. Right external iliac artery: Atherosclerotic but patent withoutsignificant focal stenosis. Right internal iliac artery: Atherosclerotic with moderate multifocal stenoses. Left common iliac artery: Atherosclerotic but patent without significant focal stenosis. Left external iliac artery: Atherosclerotic but patent withoutsignificant focal stenosis. Left internal iliac artery: Atherosclerotic with mild multifocalstenoses. Lower Chest: Normal. Liver: The liver surface is nodular. Gallbladder and Bile Ducts: Normal. No evidence of gallstones or pericholecystic fluid. Nointrahepatic or extra hepatic bile duct dilatation. Kidneys: Multiple simple renal cysts bilaterally. No renal calculi or hydronephrosis. Adrenals: Normal. Spleen: Normal. Pancreas: Multiple calcifications within the pancreas, likely consistent withprior or chronic pancreatitis. Gastrointestinal: There is a hyperdensity in the distal stomach (series 6, image 41),which is not present on the noncontrast exam. However, there is no expansionon the venous phase in appearance and density favors ingested material layering in the stomach rather than active arterial bleeding. There is a large complex peptic ulcer involving the second portion ofthe duodenum that measures up to 4.6 x 3.1 cm with mild associated fat stranding. No active arterial bleeding is identified. There is focal fat stranding and prominent lymph nodes adjacent to asmall tubular diverticulum arising from the distal ileum. This is best seen on series 10 image 43. There are multiple other diverticula seen in thedistal ileum. Appendix: The appendix is not definitively identified. Pelvic Structures: A uterus is present. There is a 4.6 cm right-sided and 2.1 cm left-sided adnexal cyst. There is no pelvic free fluid or enlarged lymphadenopathy. Bones: Bone windows demonstrate no suspicious lytic or blastic lesions. The visible osseous structures are intact. Soft tissues: Normal. Vascular: There are multiple perisplenic varices and splenorenal shunting. Impression 1. Hyperdense layering content in the gastric outlet seen on thearterial phase and not definitively seen on the noncontrast CT. However, layering appearance and density favors ingested material moving through thestomach rather than active arterial extravasation. This does not expand on the venous phase. 2. Large complex peptic ulcer involving the second portion of theduodenum measuring up to 4.6 cm. No active arterial bleeding is seen. No free intraperitoneal gas. 3. Multiple diverticuli of the distal ileum with focal inflammation orfat stranding and enlarged lymph nodes adjacent to a diverticulum of thedistal ileum, favored to represent ileal diverticulitis. Note that Meckel's diverticulitis could have a similar appearance given the location,although less likely given the small size of the diverticulum and presence ofother diverticula of the terminal ileum. 4. Multiple splenic varices with splenorenal shunting. Mildly nodularliver surface could represent hepatic parenchymal disease. These findings were discussed in detail with the patient's careprovider, Dr. Hubbard by Dr. Bernard via telephone at 12:50 PM on 07/21/2022 with readback comprehension and verification. > Dictated by Lou Bernard M.D. (rn residential). I, John Menchaca MD have personally reviewed and interpreted this examination/study. > Interpreting Provider: John Menchaca MD on 07/21/2022 12:53 PM Elke Lomeli MD CT ORDERABLES * BLOOD TYPE VERIFICATION (07/21/2022 7:10 AM FACILITIES PROJECT MANAGER) ABO Rh O POS 07/21/2022 7:3 2 AM FACILITIES PROJECT MANAGER [facility] Blood Bank BLOOD SPECIMEN / Unknown Venipuncture / Unknown 07/21/2022 7:10 AM FACILITIES PROJECT MANAGER 07/21/2022 7:21 AM FACILITIES PROJECT MANAGER Laura Yi MD LAB - BLOOD BANK ORD ERABLES [facility] [address] [place] [address], [facility] [phone] * PHOSPHORUS BLOOD (07/21/2022 6:11 AM FACILITIES PROJECT MANAGER) Pathologist [facility] Phosphorus 3.5 2.9 - 5.1 mg/dL 07/21/2022 6:54 AM [facility] Blood BLOOD SPECIMEN / Unknown Venipuncture / Unknown 07/21/2022 6:11 AM FACILITIES PROJECT MANAGER 07/21/2022 6:23 AM FACILITIES PROJECT MANAGER Phani Funk MD LAB - CHEMISTR Y ORDERABLES [address] [address], [facility] [phone] * ECHO COMPLETE (07/15/2022 11:33 AM FACILITIES PROJECT MANAGER) Anatomical Region Laterality Modality Chest Echo 07/15/2022 10:4 0 AM FACILITIES PROJECT MANAGER Narrative Procedure Note Khurram Hernandez MD - 07/15/2022 Vishal Mock MD ECHOCARDIOGRAPHY RAD IANT * TSH REFLEX FREE T4 (07/12/2022 6:07 AM FACILITIES PROJECT MANAGER) [facility] TSH 2.518 0.350 - 4.940 uIU/mL 07/12/2022 7:12 AM [facility] Blood BLOOD SPECIMEN / Unknown Venipuncture / Unknown 07/12/2022 6:07 AM FACILITIES PROJECT MANAGER 07/12/2022 6:24 AM FACILITIES PROJECT MANAGER Vishal Mock MD LAB - CHEMISTRY ORDE RABLES Performing Organization Address City/[facility]/ZIP Co de Phone Number [address] [address], [facility] [phone] * (ABNORMAL) URINE DRUG SCREEN IMMUNOASSAY (07/09/2022 5:29 AM FACILITIES PROJECT MANAGER) [facility] Amphetamines Screen Urine Negative Negative : < 1000 ng/mL 07/09/2022 5:59 AM [facility] Barbiturates Screen Urine Negative Negative : < 200 ng/mL 07/09/2022 5:59 AM [facility] Benzodiazepine Screen Urine Negative Negative : < 200 ng/mL 07/09/2022 5:59 AM [facility] Opiates Urine Positive(A) Negative : < 300 ng/mL 07/09/2022 5:59 AM [facility] Comment:Positive urine opiat e screening results should be confirmed by another generally accepted non-immunological method such as gas chromatography or mass spectrometry. Cocaine Metabolites Urine Negative Negative : < 300 ng/mL 07/09/2022 5:59 AM [facility] Phencyclidine Screen Urine Negative Negative : < 25 ng/ml 07/09/2022 5:59 AM [facility] Cannabinoids Screen Urine Negative Negative : <50 ng/mL 07/09/2022 5:59 AM [facility] Methadone Screen Urine Negative Negative : < 300 ng/mL 07/09/2022 5:59 AM [facility] Fentanyl Screen Urine Negative Negative : <1.5 ng/mL 07/09/2022 5:59 AM [facility] Urine URINE / Unknown Collection / Unknown 07/09/2022 5:29 AM [facility] 07/09/2022 5:36 AM [facility] - 07/09/2022 5:59 AM [facility] The Urine Toxicology Screening Panel does not screen for Propoxyphene, Meprobamate, Carisoprodol, Trazodone, udhj-lps-lpuattm medications and/or volatiles (Acetone, Isopropanol, Methanol or Ethylene Glycol). Ethanol, Salicylate, Acetaminophen, Tricyclic Antidepressants and several therapeutic drugs may be individually assayed in serum or plasma specimen. Toxicology testing by the [facility] is an aid to medical diagnosis and treatment of patients. No documented chain of custody was maintained. Results are intended to be used for clinical purposes only. Davida Negron MD LAB - URINE CHEMISTR Y ORDERABLES [facility] [address] [place] [address], [facility] [phone] * (ABNORMAL) LEVETIRACETAM LEVEL (07/08/2022 12:21 AM FACILITIES PROJECT MANAGER) Levetiracetam <2(L) 10 - 40 ug/mL 07/09/2022 11:46 PM FACILITIES PROJECT MANAGER [facility] Comment: INTERPRETIVE INFORMATION: Keppra (Levetiracetam) Therapeutic Range: 10-40 ug/mL Toxic: Not well Established Pharmacokinetics of levetiracetam are affected by renal function. Adverse effects may include somnolence, weakness, headache and vomiting. This levetiracetam (Keppra) immunoassay uses the [employer] reagents, which has known cross-reactivity with the drug brivaracetam (Briviact) and may report inaccurate results. Patients transitioning from levetiracetam to brivaracetam or those who are using both medications should not monitor drug concentrations with the [employer] assay. These patients should be monitored using a validated chromatographic methodology that distinguishes between drugs to determine drug concentrations. Performed By: [facility] [employer] [address] [place] [address] Diesel Technician: Eric Isbell MD, PhD Blood BLOOD SPECIMEN / Unknown Venipuncture / Unknown 07/08/2022 12:21 AM FACILITIES PROJECT MANAGER 07/08/2022 12:27 AM FACILITIES PROJECT MANAGER Ankit White MD LAB - THERAPEUTIC MONITORING ORDERABLES Performing Organization Address [facility]/ZIP Co de Phone Number [facility]) [address] [place] [address] * (ABNORMAL) HYDROXYBUTYRATE BETA (07/08/2022 12:21 AM FACILITIES PROJECT MANAGER) Beta-Hydroxybu tyrate 2.56(H) <0.50 mmol/L 07/08/2022 12:55 AM FACILITIES PROJECT MANAGER [facility] Blood BLOOD SPECIMEN / Unknown Venipuncture / Unknown 07/08/2022 12:21 AM FACILITIES PROJECT MANAGER 07/08/2022 12:30 AM FACILITIES PROJECT MANAGER Ankit White MD LAB - CHEMISTRY [facility] [address] [place] [address], [place] [phone] * LACTIC ACID BLOOD (07/08/2022 12:21 AM FACILITIES PROJECT MANAGER) Lactic Acid-Stat 1.6 <=2.0 mmol/L 07/08/2022 12:51 AM FACILITIES PROJECT MANAGER [facility] Blood BLOOD SPECIMEN / Unknown Venipuncture / Unknown 07/08/2022 12:21 AM FACILITIES PROJECT MANAGER 07/08/2022 12:30 AM FACILITIES PROJECT MANAGER Ankit White MD LAB - CHEMISTRY [facility] [place] [address] [address], [place] [phone] * (ABNORMAL) PHENYTOIN LEVEL TOTAL (07/08/2022 12:21 AM FACILITIES PROJECT MANAGER) Pathologist [facility] Phenytoin, total <1.8(L) 10.0 - 20.0 ug/mL 07/08/2022 12:55 AM FACILITIES PROJECT MANAGER [facility] Blood BLOOD SPECIMEN / Unknown Venipuncture / Unknown 07/08/2022 12:21 AM FACILITIES PROJECT MANAGER 07/08/2022 12:30 AM FACILITIES PROJECT MANAGER Ankit White MD LAB - CHEMISTRY [facility] Performing Organization Address City/[facility]/ZIP Co de Phone Number [address] [address], [place] [phone] * (ABNORMAL) CK BLOOD (07/08/2022 12:21 AM FACILITIES PROJECT MANAGER) Pathologist [facility] CK Total 796(H) 30 - 200 U/L 07/08/2022 12:55 AM FACILITIES PROJECT MANAGER [facility] Blood BLOOD SPECIMEN / Unknown Venipuncture / Unknown 07/08/2022 12:21 AM FACILITIES PROJECT MANAGER 07/08/2022 12:30 AM FACILITIES PROJECT MANAGER Ankit White MD LAB - CHEMISTRY [facility] [address] [place] [address], [facility] [phone] * SARS-COV-2 (COVID-19)+INFLU A+B PCR RAPID (07/07/2022 10:59 PM FACILITIES PROJECT MANAGER) COVID-19 PCR Not detected Not detected 07/07/20 11:44 PM FACILITIES PROJECT MANAGER [facility] Influenza A Rapid MIKE Not Detected Not Detected 07/07/2022 11:44 PM FACILITIES PROJECT MANAGER [facility] Influenza B MIKE Rapid Not Detected Not Detected 07/07/2022 11:44 PM FACILITIES PROJECT MANAGER [facility] Microbiology SPECIMEN FROM NASOPHARYNGEAL STRUCTURE / Unknown Collection / Unknown 07/07/2022 10:59 PM FACILITIES PROJECT MANAGER 07/07/2022 11:03 PM FACILITIES PROJECT MANAGER [facility] - 07/07/2022 11:44 PM FACILITIES PROJECT MANAGER Influenza assay performed by [employer]. Results do not exclude the possibility of a mixed viral infection. NOTE: Detecting and identifying specific viral nucleic acids from individuals exhibiting signs and symptoms of respiratory infection aids in the diagnosis of respiratory infection, if used in conjunction with other clinical and laboratory findings. The results of this test should not be used as the sole basis for diagnosis, treatment, or patient management decisions. This nucleic acid amplification assay performance was validated by [facility]. This test has been authorized by the Food and Drug administration (FDA)under an Emergency Use Authorization (EUA). This test has been validated in accordance with the FDA's guidance document Policy for Diagnostic Testing in Laboratories Certified to perform High Complexity Testing under CLIA prior to Emergency Use Authorization for Coronavirus Disease-2019 during the Public Health Emergency issued on September 17, 2019. FDA independent review of this validation is pending. This test is only authorized for the duration of time the declaration that circumstances exist justifying the authorization of emergency use of in vitro diagnostic tests for detection of SARS-CoV-2 virus and/or diagnosis of COVID-19 infection under section 564(b)(1) of the Act, 21 U.S.C 360bbb-3 (b)(1), unless the authorization is terminated or revoked sooner. Fact Sheets for this EUA assay are available upon request. Ankit White MD LAB - MICROBIOLOGY O RDERABLES [facility] [address] [place] [address], [facility] [phone] Care Teams Conference Interpreter Relationship Specialty Start Date End Date Allie Sinclair PA-C [address] [place] [id number] PCP - General 07/08/22
--- OUTSIDE RECORDS SUMMARY | 2024-10-03 14:32 | XMS_ITS | CONTINUITY OF CARE DOCUMENT ---
Author Name jaqueline parsons Address Unknown Organization [facility] Address [address] [place] [address] Phone [phone] Care Team Providers Care Shipfitters Supervisor Name Role Phone Lc Abernathy MD Unavailable MADY MORAN Unavailable MADY MORAN Unavailable PROBLEMS Condition Status Date Provider Notes Seizure disorder active Lc Abernathy MD Colitis, acute active Lc Abernathy MD Hyperlipidemia active Lc Abernathy MD Palpitations active Lc Abernathy MD Diabetes mellitus active Lc Abernathy MD HTN essential active Lc Abernathy MD Family History of Hypertension: active [place] Abernathy MD Family History of CVA or Stroke: active Mimi Abernathy MD Family History of CVA or Stroke: active Mimi Abernathy MD Family History of Hypertension: active [place] Abernathy MD Cardiology examination active Lc Abernathy MD ENCOUNTERS Date Type Provider Location Encounter Diag nosis 9 - 9 In-person encounter Office Visit Lc Abernathy MD [place] [facility] 4 - 5 In-person encounter Office Visit L[facility] [place] [facility] 3 - 3 In-person encounter Office Visit Lc Abernathy MD [place] [facility] 6 - 6 In-person encounter Office Visit Lc Abernathy MD [place] [facility] Cardiology examinationFamily History of Hypertension:Family History of CVA or Stroke:Family History of CVA or Stroke:Family History of Hypertension:HTN essentialDiabetes mellitusPalpitationsHyperlipidemia VITAL SIGNS Date Observation Value Provider Body Mass Index (Ratio) 38.37 kg/m2 Dallas Abernathy MD blood pressure, diastolic 80 mm[Hg] Li nkLog blood pressure, systolic 130 mm[Hg] Estella kLog blood pressure, cuff size large Jonathon xiao V[facility] blood pressure, diastolic 80 mm[Hg] Jonathon ninoska Nito blood pressure, systolic 130 mm[Hg] Nadia brown [facility] oxygen saturation, oximetry 97 % [facility] 74 /[facility] weight E&M 245 [lb_av] [facility] height E&M 67 [in_i] [facility] Body Mass Index (Ratio) 38.68 kg/m2 [place] Abernathy MD blood pressure, cuff size regular Robin Barnett RN blood pressure, diastolic 84 mm[Hg] Robin Barnett RN blood pressure, systolic 187 mm[Hg] Mike Barnett RN oxygen saturation, oximetry 96 % Mike Barnett RN respiratory rate E&M 22 /min Mike britt RN pulse rate 63 /min Mike Barnett RN weight E&M 247 [lb_av] Mike Barnett RN Body Mass Index (Ratio) 30.22 kg/m2 Dallas Abernathy MD blood pressure, cuff size regular Jeffrey Crump blood pressure, diastolic 70 mm[Hg] Jeffrey Crump blood pressure, systolic 140 mm[Hg] Vilma Crump oxygen saturation, oximetry 96 % Neyda Crump respiratory rate E&M 16 /min Neyda Crump pulse rate 69 /min Neyda harry weight E&M 193 [lb_av] Neyda harry height E&M 67 [in_i] Neyda harry Body Mass Index (Ratio) 29.60 kg/m2 Dallas Abernathy MD pulse rate 80 /min Neyda harry oxygen saturation, oximetry 96 % Neyda Crump respiratory rate E&M 16 /min Neyda Crump blood pressure, cuff size regular Cy rosario Crump blood pressure, diastolic 78 mm[Hg] Jeffrey Crump blood pressure, systolic 128 mm[Hg] Vilma Crump weight E&M 189 [lb_av] Neyda harry height E&M 67 [in_i] Neyda harry ALLERGIES No Known Drug Allergies HISTORY OF MEDICATION USE Medication Status Instructions Dates Provider Indications Com ments METOPROLOL TARTRATE 25 MG ORAL TABLET completed one tab. twice daily 6 - 3 Neyda Crump metoprolol tartrate 25 mg tablet active 1 tablet twice a day 6 Lc Abernathy MD phenytoin sodium extended 100 mg capsule active Take 1 capsule twice a day 6 Neyda Crump ezetimibe 10 mg tablet active Take 1 tablet once a day 6 Neyda Crump atorvastatin 40 mg tablet active Take 1 tablet once a day 6 Neyda Crump sertraline 100 mg tablet active Take 1 tablet once a day 6 Neyda Crump potassium chloride 10 mEq tablet,ER particles/crystal s active Take 1 tablet once a day 6 Neyda Crump Januvia 100 mg tablet active Take 1 tablet once a day 6 Neyda Crump lisinopril 20 mg tablet completed Take 1 tablet by mouth once a day 8 - 4 Lc Abernathy MD levetiracetam 250 mg tablet active Take 1 tablet every twelve hours 6 Neyda Crump glipizide 5 mg tablet active Take 1 tablet once a day 6 Neyda Crump famotidine 20 mg tablet completed Take 1 tablet every twelve hours 6 - 4 Neyda Crump DICLOFENAC SODIUM 1 % TRANSDERMAL GEL completed Apply three times a day as needed 6 - 4 Neyda Crump SOCIAL HISTORY Date Observation Value Provider smoking status Never smoker Lc Abernathy MD social history reviewed E&M revi ewed - no changes required Lc Abernathy MD social history reviewed E&M revi ewed - no changes required Lc Abernathy MD social history E&M S moking History: Buzz bentley has never smoked. Lc Abernathy MD social history reviewed E&M revi ewed - no changes required Lc Abernathy MD smoking status Never smoker Neyda saleh number of grandchildren Lc Abernathy MD U marek Abernathy MD alcohol use, average drinks per day social Lc Abernathy MD alcohol use yes Lc Abernathy MD social history E&M S moking History: Buzz bentley has never smoked. Lc Abernathy MD social history reviewed E&M revi ewed - no changes required Lc Abernathy MD smoking status Never smoker Neyda saleh FAMILY HISTORY Family Member Condition Son Family History of Di abetes: Full Sister Family History of Co ronary Artery Disease: Mother Family History of Hy pertension: Mother Family History of CV A or Stroke: Father Family History of CV A or Stroke: Mother Family History of Hy pertension: INSURANCE PROVIDERS Payer name Policy type / Coverage type Dinesh red republican ID [facility] [id number] [place] B Medicare [id number] ADVANCE DIRECTIVES Name Date DISCUSSED - NO DECISION MADE TREATMENT PLAN Date Name Performer [id number],S, H er updated medication list for this problem includes: Ezetimibe 10 Mg Tablet (Ezetimibe) ..... Take 1 tablet once a day Atorvastatin 40 Mg Tablet (Atorvastatin) ..... Take 1 tablet once a day Lc Abernathy MD [id number],B, B P today: 130/80 P rior BP: 187/84 (09/30/2021) Her updated medication list for this problem includes: Lisinopril 20 Mg Tablet (Lisinopril) ..... Take 1 tablet by mouth once a day Metoprolol Tartrate 25 Mg Tablet (Metoprolol tartrate) ..... 1 tablet twice a day Lc Abernathy MD [id number],B, N o palps. Tele monitor showed sinus bradycardia with extra beats, no significant arrhythmias. Lc Abernathy MD [id number],S, P er PCP Her updated medication list for this problem includes: Lisinopril 20 Mg Tablet (Lisinopril) ..... Take 1 tablet by mouth once a day Glipizide 5 Mg Tablet (Glipizide) ..... Take 1 tablet once a day Januvia 100 Mg Tablet (Sitagliptin) ..... Take 1 tablet once a day Lc Abernathy MD [id number],C, N o palps. Currently on a heart monitor since being in the hospital . Lc Abernathy MD [id number],C, H ad an admission to [facility] for a grand mal seizure. Keppra was increased in the hospital. Feeling well today Lc Abernathy MD [id number],C, H er updated medication list for this problem includes: Ezetimibe 10 Mg Tablet (Ezetimibe) ..... Take 1 tablet once a day Atorvastatin 40 Mg Tablet (Atorvastatin) ..... Take 1 tablet once a day Lc Abernathy MD [id number],C,B P elevated, will increase Lisinopril to 20 mg once a dya B P today: 187/84 P rior BP: 140/70 (04/11/2019) Her updated medication list for this problem includes: Lisinopril 20 Mg Tablet (Lisinopril) ..... Take 1 tablet by mouth once a day Metoprolol Tartrate 25 Mg Tablet (Metoprolol tartrate) ..... 1 tablet twice a day Lc Abernathy MD Cardiology: H er updated medication list for this problem includes: Ezetimibe 10 Mg Tablet (Ezetimibe) ..... Take 1 tablet once a day Atorvastatin 40 Mg Tablet (Atorvastatin) ..... Take 1 tablet once a day Lc Abernathy MD Cardiology: B P today: 130/80 P rior BP: 187/84 (09/30/2021) Her updated medication list for this problem includes: Lisinopril 20 Mg Tablet (Lisinopril) ..... Take 1 tablet by mouth once a day Metoprolol Tartrate 25 Mg Tablet (Metoprolol tartrate) ..... 1 tablet twice a day Lc Abernathy MD Cardiology: N o palps. Tele monitor showed sinus bradycardia with extra beats, no significant arrhythmias. Lc Abernathy MD Cardiology: P er PCP Her updated medication list for this problem includes: Lisinopril 20 Mg Tablet (Lisinopril) ..... Take 1 tablet by mouth once a day Glipizide 5 Mg Tablet (Glipizide) ..... Take 1 tablet once a day Januvia 100 Mg Tablet (Sitagliptin) ..... Take 1 tablet once a day Lc Abernathy MD Cardiology: N o palps. Currently on a heart monitor since being in the hospital . Lc Abernathy MD Cardiology: H ad an admission to [facility] for a grand mal seizure. Keppra was increased in the hospital. Feeling well today Lc Abernathy MD Cardiology: H er updated medication list for this problem includes: Ezetimibe 10 Mg Tablet (Ezetimibe) ..... Take 1 tablet once a day Atorvastatin 40 Mg Tablet (Atorvastatin) ..... Take 1 tablet once a day Lc Abernathy MD Cardiology:BP elevat ed, will increase Lisinopril to 20 mg once a dya B P today: 187/84 P rior BP: 140/70 (04/11/2019) Her updated medication list for this problem includes: Lisinopril 20 Mg Tablet (Lisinopril) ..... Take 1 tablet by mouth once a day Metoprolol Tartrate 25 Mg Tablet (Metoprolol tartrate) ..... 1 tablet twice a day Lc Abernathy MD Telehealth:Well cont rolled on Glipizide and Januvia Lc Abernathy MD Telehealth:On Keppra , may come off of Dilantin Lc Abernathy MD Telehealth:Patient g ot recent bloodwork Her updated medication list for this problem includes: Ezetimibe 10 Mg Oral Tablet (Ezetimibe) ..... Take 1 tab daily Atorvastatin Calcium 40 Mg Oral Tablet (Atorvastatin calcium) ..... Take 1 tab daily Lc Abernathy MD Telehealth:Patient w as admitted 2 weeks ago with acute colitis and a UTI. These issues have both resolved. Lc Abernathy MD Telehealth:Well cont rolled on current meds BP today: 110/73 P rior BP: 140/70 (04/11/2019) Her updated medication list for this problem includes: Metoprolol Tartrate 25 Mg Oral Tablet (Metoprolol tartrate) ..... One tab. twice daily Lisinopril 10mg Tablets (Lisinopril) ..... Take 1 tablet by mouth daily Lc Abernathy MD Cardiology follow up :She is having fairly frequent night time palpitations. WIll start her on a 48 Hr monitor. Lc Abernathy MD Cardiology follow up :Will increase Lisinopril to 10mg once daily. Check BMP in 2 weeks. B P today: 140/70 P rior BP: 128/78 (03/14/2019) Lc Abernathy MD Cardiology follow up :Per PCP. Coral Abernathy MD Cardiology New Patie nt : H er updated medication list for this problem includes: Ezetimibe 10 Mg Oral Tablet (Ezetimibe) ..... Take 1 tab daily Atorvastatin Calcium 40 Mg Oral Tablet (Atorvastatin calcium) ..... 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 Lc Abernathy MD Cardiology New Patie nt :Will restart metoprolol 25 mg twice daily. Will check an echo. B P today: 128/78 Lc Abernathy MD Date Name BASIC METABOLIC PANE L W/EGFR Holter Monitor 48 hr Complete Echo HISTORY OF PROCEDURES Procedure Date Procedure Name Provider Procedure Notes S tatus EKG Lc Abernathy MD completed
--- OUTSIDE RECORDS SUMMARY | 2024-10-03 14:33 | XMS_ITS | Clinical Summary ---
Author Organization [facility] [facility] Address [address] [place] [id number] Care Team Providers Care Lining Caser Name Role Phone Marcelino Gore Primary Care Provider + Allergies Active Allergy Reactions Criticality Noted Date Comments Aspartame Diarrhea Medium 07/26/2022 Morphine Other (See comments) High 09/10/2023 Pt had bad experience: Acute drug intoxication - called EMS, almost had to complete temporary HD - went to [facility] Medications acetaminophen (TYLENOL EXTRA STRENGTH) 500 mg [...] 1 tablet (5 mg total) by mouth photo graphics librarian before breakfast 4 Active fenofibrate (TRIGLIDE) 160 mg tabletIndication s:hyperlipidemia Take 1 tablet (160 mg total) by mouth photo graphics librarian before breakfast Active dapagliflozin propanediol (FARXIGA) 10 mg tabletIndication s:type 2 diabetes mellitus Take 1 tablet (10 mg total) by mouth photo graphics librarian before breakfast 3 Active aspirin 81 mg chewable tabletIndication s:prevention of thrombosis Take 1 tablet (81 mg total) by mouth photo graphics librarian before breakfast 2 Active amLODIPine (NORVASC) 10 mg tabletIndication s:hypertension Take 1 tablet (10 mg total) by mouth photo graphics librarian before breakfast 8 Active miconazole 2 % [...] Active Problems Problem Noted Date Diagnosed Date [place]-neck deformity of left finger(s) 02/25/2024 Left radial [...] 08/09/2022 Assessment & Plan (08/13/2022 6:43 AM ELECTRIC ARC WELDER): Has erythema, warmth with more drainage. Will start on amoxicillin 500 mg b.i.d. x5 days, doxycycline 100 mg b.i.d. x5 days, started on 08/09/22. Continue pain management with Tylenol 650 Q 6. Continue wound care. Assessment & Plan (08/09/2022 6:49 PM ELECTRIC ARC WELDER): Has erythema, warmth with more drainage. Will start on amoxicillin 500 mg b.i.d. x5 days, doxycycline 100 mg b.i.d. x5 days. Continue pain management with Tylenol 650 Q 6. Continue wound care. Moderate vascular dementia w ithout behavioral disturbance, psychotic disturbance, mood disturbance, or anxiety 08/09/2022 Assessment & Plan (08/13/2022 6:45 AM ELECTRIC ARC WELDER): Patient is pleasantly confused. No behaviors. Slums 16/30. Continue Zoloft 100 mg daily. Continue supportive care. Patient need supervision and care after discharge Assessment & Plan (08/09/2022 6:58 PM ELECTRIC ARC WELDER): Patient is pleasantly confused. No behaviors. Slums 16/30. Continue Zoloft 100 mg daily. Continue supportive care. Patient need supervision and care after discharge Closed fracture of shaft of left humerus with routine healing 08/07/2022 Assessment & Plan (08/13/2022 6:42 AM ELECTRIC ARC WELDER): Due to fall. Imaging revealed left humeral shaft fracture, complicated with radial nerve palsy. Orthopedic managed conservatively with brace. SHAMIKA PRADHAN. Pain management with Tylenol 650 Q 6. Patient had follow-up with Dr. Thomas today. Recommended to continue Left arm brace, according to special instructions for placement and cleaning.Pt will be dc today to [facility]. Assessment & Plan (08/09/2022 6:51 PM ELECTRIC ARC WELDER): Pain overall controlled. Reminded patient that has follow-up with Dr. Thomas 08/11/2022. Daughter to provide transportation. Assessment & Plan (08/07/2022 6:17 AM ELECTRIC ARC WELDER): Due to fall. Imaging revealed left humeral shaft fracture, complicated with radial nerve palsy. Orthopedic managed conservatively with brace. SHAMIKA PRADHAN. Pain management with Tylenol 650 Q 6. Patient follow-up with Dr. Thomas on 08/11/22 for repeat imaging and treatment plan Paroxysmal A-fib 08/07/2022 Assessment & Plan (08/13/2022 6:43 AM ELECTRIC ARC WELDER): Patient developed paroxysmal AFib while inpatient, was started on metoprolol 25 mg b.i.d. and Eliquis 5 mg b.i.d., which later placed on hold due to GI Assessment & Plan (08/07/2022 6:18 AM ELECTRIC ARC WELDER): Patient developed paroxysmal AFib while inpatient, was started on metoprolol 25 mg b.i.d. and Eliquis 5 mg b.i.d., which later placed on hold due to GI Gastrointestinal hemorrhage with melena 08/07/19 Assessment & Plan (08/13/2022 6:46 AM ELECTRIC ARC WELDER): Patient was started on Eliquis for AFib, followed by acute blood loss anemia. Home med Plavix, Eliquis placed on hold. EGD done showed multiple gastric and duodenal ulcers. Status post blood transfusions. H pylori negative. Denies any melena or GI bleed now. Continue pantoprazole 40 mg b.i.d.. Avoid NSAIDs, AC till follow-up with GI. Assessment & Plan (08/07/2022 6:32 AM ELECTRIC ARC WELDER): Patient was started on Eliquis for AFib, [...] 08/07/2022 Assessment & Plan (08/13/2022 6:43 AM ELECTRIC ARC WELDER): 2/2 GIB (gastric, duodenal ulcers). Received blood transfusions. Hold NSAIDs, anticoagulants. CBC check a.m. Assessment & Plan (08/07/2022 6:20 AM ELECTRIC ARC WELDER): 2/2 GIB (gastric, duodenal ulcers). Received blood transfusions. Hold NSAIDs, anticoagulants. CBC check a.m. Acute kidney injury superimposed on chronic kidn ey disease 08/07/2022 Assessment & Plan (08/13/2022 6:45 AM ELECTRIC ARC WELDER): Baseline creatinine around 1. Was elevated while inpatient. Will hold chlorthalidone now, till BMP results. If creatinine elevated may consider holding lisinopril as well. Avoid nephrotoxic drugs. Monitor renal function Assessment & Plan (08/07/2022 6:30 AM ELECTRIC ARC WELDER): Baseline creatinine around 1. Was elevated while [...] 08/27/2021 Assessment & Plan (08/13/2022 6:45 AM ELECTRIC ARC WELDER): Patient currently asymptomatic. No seizure episode. Continue home med Keppra 750 mg b.i.d.. Will check Keppra level next labs. Assessment & Plan (08/07/2022 6:31 AM ELECTRIC ARC WELDER): Patient currently asymptomatic. No seizure episode. Continue home med Keppra 750 mg b.i.d.. Will check Keppra level next labs. Depressive disorder 08/27/2021 Assessment & Plan (08/13/2022 6:45 AM ELECTRIC ARC WELDER): Mood currently stable. Continue home med sertraline 100 mg daily. Assessment & Plan (08/07/2022 6:31 AM ELECTRIC ARC WELDER): Mood currently stable. Continue home med sertraline [...] 03/14/2019 Assessment & Plan (08/13/2022 6:44 AM ELECTRIC ARC WELDER): Continue Lipitor 40 mg daily, Zetia Assessment & Plan (08/07/2022 6:32 AM ELECTRIC ARC WELDER): Continue Lipitor 40 mg daily, Zetia Encounter for screening for cardiovascular disor ders 03/14/2019 Hypomagnesemia 03/14/2019 Palpitations 03/14/2019 Essential hypertension 03/08/2019 Assessment & Plan (08/13/2022 6:44 AM ELECTRIC ARC WELDER): Blood pressure and heart rate fluctuates. Continue amlodipine 10 mg, lisinopril 40 mg, metoprolol 25 mg b.i.d. added due to AFib while inpatient. Will hold down 25 mg for now due to elevated creatinine last labs. Monitor blood pressure, adjust meds accordingly. Assessment & Plan (08/07/2022 6:22 AM ELECTRIC ARC WELDER): Blood pressure and heart rate fluctuates. Continue [...] 04/28/2016 Assessment & Plan (08/13/2022 6:44 AM ELECTRIC ARC WELDER): A1c 6.6 a year ago. Continue Lantus 12 units bedtime, Tradjenta 5 mg, glipizide 5 mg. Will check A1c level next labs. Monitor Accu-Cheks Assessment & Plan (08/07/2022 6:26 AM ELECTRIC ARC WELDER): A1c 6.6 a year ago. Continue Lantus [...] Immunization Administration Dates Next Due Tdap 04/01/2022 Surgical History Surgery Date Site/Laterality Comments CARPAL TUNNEL RELEASE 07/20/2014 - 07/19/2015 Bilateral FOOT SURGERY 07/20/1970 - 07/19/1971 Right cyst ARM SURGERY 07/20/2021 - 07/19/2022 Left fracture repair FINGER SURGERY 07/20/2022 - 07/19/2023 Right ARM SURGERY 07/20/2021 - 07/19/2022 Right fracture repair Medical History Medical History Date Comments Seizure disorder (HCC) Seizure d isorder Type 2 diabetes mellitus (HCC) D iabetes type 2 Kidney disorder Kidney disease Hx Other Medical brain aneurism Osteoporosis Osteoporosis Family History Medical History Relation Name Comments Cancer Father Heart disease Mother Kidney disease Mother Mental illness Mother Other Other No family histo ry of Osteoporosis; Arthritis Sister Anesthesia problems Neg Hx Relation Name Status Comments Father Mother Other Sister Social History Tobacco Use Types Packs/Day Years [...] on file Legal Sex Female 3:49 AM ELECTRIC ARC WELDER Gender Identity Not on file Sexual Orientation Not on file Obstetrics History Last Filed Vital Signs Vital Sign Reading [...] 03/09/2024 10:00 AM CDT Plan of Treatment Health Maintenance Due Date Last Done Comments Albumin Creatinine Ratio, Urine 1954 Breast Cancer Screening-Mammogram 1954 Colon Cancer Screening-Colonoscopy 1955 Depression Screening 1954 Hepatitis C Screening 1954 Osteoporosis Screening-Bone Density Scan 1954 Dilated Eye Exam 1954 Foot Exam 1954 Hepatitis B Screening 01/14/1972 Zoster Vaccine (1 of 2) 01/14/2004 Lipid Panel 11/29/2017 11/29/2016 Well Visit 65+ 2019 Pneumococcal vaccine 65+ (2 of 2 - PCV) 05/17/2020 05/17/2019 Hemoglobin A1C 05/29/2023 11/26/2022, 12, 08/28/2021, Additional history exists eGFR 11/06/2023 11/05/2022, 07/20, 08/28/2021, Additional history exists Influenza Vaccine (#1) 2024 3, 05/10/2021, 05/10/2021, Additional history exists Fall Risk Assessment 03/09/2025 03/09/2024 DTaP/Tdap/Td Vaccine (2 - Td or Tdap) 04/01/2032 04/01/2022 Colon Cancer Screening-FIT Discontinued 03/18/2018 Procedures Procedure Name Priority Date/Time Associated Diagnosis Comments EGFR STAT 11/05/2022 7:36 AM CDT Preop testing HEMOGLOBIN A1C Routine 08/28/2021 4:53 AM ELECTRIC ARC WELDER OCCULT BLOOD, FECAL (FIT) Routine 03/18/2018 8:45 [...] of Race in Diagnosing Kidney Disease, JASN 202). The CKD-EPI equation should not be used for patients with unstable renal function and has not been validated in children and those over 70. Current interpretive data was last reviewed 2021. Blood 11/05/2022 7:36 AM CDT 11/05/2022 7:41 AM CDT us Juwan Newton MD LAB BLOOD ORDERABLES Final Re sult BLAYNE VIERA [address] [facility] Department [place] [address] * (ABNORMAL) Hemoglobin A1c (08/28/2021 4:53 AM ELECTRIC ARC WELDER) Hgb A1C 6.6(H) 4.0 - 5.6 % BLAYNE Comment:Testing performed by : [facility], [address] [place] [address]., [id number] Estimated Average Glucose 143 mg/dL BLAYNE Comment: The ADA recommends reporting an estimated Average Glucose (eAG) with all Hemoglobin A1c results using the equation derived from a study of 507 normal and diabetic adults. Minority populations were underrepresented and children were not included. (Diabetes Care 31:7726-6036, 2008). The eAG is not equivalent to a fasting glucose. Testing performed by: [facility], [address] [place] [address]., [id number] Blood 08/28/2021 4:53 AM ELECTRIC ARC WELDER 08/28/2021 5:00 AM ELECTRIC ARC WELDER Janet Guan DO LAB BLOOD ORDERABLES Final Re sult Performing Organization Address City/[facility]/ZIP Co de Phone Number [facility] [address] [facility] Department [place] [address] * Occult blood, fecal non neoplasm screening (03/18/2018 8:45 PM CDT) [facility] Stool Occult Blood POSITIVE NEGATIVE 03/18/2018 8:45 PM CDT 03/18/2018 10:08 PM CDT Kassandra Saab NP LAB BODY FLUIDS AND STOOLS ORDER JIM Final Result [facility] HISTORICAL RESULTS * (ABNORMAL) TNI with LIPID PANEL (11/29/2016 3:21 PM CDT) [facility] Troponin I < 0.300 0.000 - 0.300 ng/mL Comment: Reference using GEE Chemiluminescence Negative: Repeat in 4-6 hours as indicated. Triglycerides 124 0 - 199 mg/dL Comment:12 hr pc highly davis mmended for Triglyceride Cholesterol 212(H) 0 - 199 mg/dL Comment: Borderline: 200-239 High Risk: >239 HDL Cholesterol 82(H) 40 - 60 mg/dL Comment: Major Risk < 40 mg/dL Moderate Risk 40-60 mg/dL Negative Risk > 60 mg/dL LDL Cholesterol, Calc 105 0 - 130 mg/dL Comment:High Risk > 159 mg/d L Cholesterol/HDL Ratio 2.6 Comment: Cholesterol / HDL Ratio 3.5:1 or less is desirable. Cholesterol / HDL Ratio greater than 5:1 is considered higher risk for developing heart disease. 11/29/2016 3:21 PM CDT 11/29/2016 3:28 PM CDT Narrative [facility] HISTORICAL RESULTS - 11/29/2016 3:54 PM CDT us Lester Marcelino Mccann MD LAB BLOOD ORDERABLES Final Result [facility] HISTORICAL RESULTS from Last 3 Months or Most Recently Relevant to [place] [address] MEDICARE MEDICARE IDDC IDDC MEDICARE Advance Directives For more information, please contact: [phone] * Full Code (Latest Code Status on File) Date Activated Date Inactivated Comments 11/05/2022 11:01 AM 11/05/2022 5:09 PM Healthcare Agents on File Name Relationship Healthcare Agent [facility] Communication Prakash Olson Friend Second Alternate Health Care Agent Care Teams Lining Caser Relationship Specialty Start Date End Date Marcelino Gore PA [address] [place] [id number] PCP - General 09/08/19
--- OUTSIDE RECORDS SUMMARY | 2024-10-03 14:33 | XMS_ITS | Encounter Summary ---
Author Organization [facility] Address [address] [place] [phone] Phone Care Team Providers Care Cutting Table Operator First Name Role Phone Marcelino Gore MD Primary Care Provider [phone] Reason for Visit * Reason Comments Med Refill Encounter Details Date Type Department Care Team ([facility] Contact Info) Description 08/21/2024 Refill [facility] [address] [place] [phone] Lizzeth Mohan NP [address] [phone] Social History Tobacco Use Types Packs/Day Years Used Date Smoking Tobacco: Never Smokeless Tobacco: Never Alcohol Use Standard Drinks/Week Comments Yes 0 (1 standard drink = 0.6 oz pure alcohol) Alcoholic Drinks/day: occasionally Sex and Gender Information Value Date Recorded Sex Assigned at Not on file Gender Identity Not on file Sexual Orientation Not on file documented as of this encounter Plan of Treatment Upcoming Encounters Date Type Department Care Team ([facility] Contact Info) Description 11/10/2024 1:00 PM CDT Office Visit [facility] [address] [place] [address] [address] [place], [place] [phone] Lizzeth Mohan NP [address] [phone] documented as of this encounter Visit Diagnoses Not on filedocumented in this encounter Care Teams Cutting Table Operator First Relationship Specialty Start Date End Date Marcelino Gore MD [address] [place] [phone] PCP - General 03/01/19 documented as of this encounter
--- OUTSIDE RECORDS SUMMARY | 2024-10-03 14:33 | XMS_ITS | Clinical Summary ---
Author Organization [facility] Address [address] [place] [phone] Phone Care Team Providers Care Wage Analyst Name Role Phone Marcelino Gore MD Primary Care Provider [phone] Allergies No known active allergies Medications Medication Sig Dispensed Refills Start Date End Date Status atorvastatin (LIPITOR) 40 MG tablet Onee tablet at bedtime 0 04/28/2016 Active acetaminophen (TYLENOL) 325 MG tablet Take 2 tablets by mouth in the morning and 2 tablets in the evening. Active metoprolol tartrate (LOPRESSOR) 25 MG tablet Take 25 mg by mouth every 12 (twelve) hours Active cholecalciferol (VITAMIN D-3) 25 MCG (1000 UT) tablet Take 1,000 Units by mouth 1 (one) time each day Active amLODIPine (NORVASC) 10 MG tablet Take 10 mg by mouth 1 (one) time each day Active aspirin 81 MG chewable tablet Chew 81 mg 1 (one) time each day Active Dapagliflozin Propanediol 10 MG tablet Take 10 mg by mouth 1 (one) time each day Active fenofibrate (TRIGLIDE) 160 MG tablet Take 160 mg by mouth 1 (one) time each day Active FLUoxetine (PROzac) 10 MG capsule Take 10 mg by mouth 1 (one) time each day Active linaGLIPtin (Tradjenta) 5 MG tablet Take 5 mg by mouth 1 (one) time each day Active lacosamide (VIMPAT) 100 MG tablet Take 100 mg by mouth in the morning and 100 mg in the evening. Active levETIRAcetam (KEPPRA) 1000 MG tablet Take 1,000 mg by mouth in the morning and 1,000 mg in the evening. Active insulin glargine (Basaglar KwikPen) 100 UNIT/ML injection Inject 20 Units under the skin every night Active senna (SENOKOT) 8.6 MG tablet Take 1 tablet by mouth 1 (one) time each day if needed for constipation Active QUEtiapine (SEROQUEL) 12.5 MG tablet Take 12.5 mg by mouth in the morning and 12.5 mg in the evening. Active Active Problems Problem Noted Date Diagnosed Date Secondary hyperparathyroidism of renal origin Hypertensive chronic kidney disease with stage 1 through stage 4 chronic kidney disease, or unspecified chronic kidney disease 04/28/2016 Stage 3a chronic kidney disease 04/28/2016 Type 2 diabetes mellitus wit h other diabetic kidney complication 04/28/2016 Resolved Problems Problem Noted Date Diagnosed Date Resolved Date Other retention of urine 05/04/2020 Encounters Date Type Department Care Team Description 08/21/2024 Refill [facility] [address] [place] [phone] Lizzeth Mohan NP 08/18/2024 9:00 AM OUTBOUND SALES CONSULTANT Office Visit [facility] [address] [place] [address] Lizzeth Mohan NP Stage 3a chronic kidney disease (CMS-HCC) (Primary Dx); Hypertensive chronic kidney disease with stage 1 through stage 4 chronic kidney disease, or unspecified chronic kidney disease; Secondary hyperparathyroidism of renal origin (CMS-HCC); Type 2 diabetes mellitus with other diabetic kidney complication ([facility]-HCC); Urinary tract infectious disease; Candidiasis of skin 08/16/2024 Orders Only [facility] [address] [place] [phone] Lizzeth Mohan NP from Last 3 Months Immunizations Name Administration Dates Next Due Influenza TIV (IM) 05/06/2016,04/20/2015 Family History Medical History Relation Comments Cerebrovascular accident Mother Hypertension Mother Hypertensive disorder Mother Kidney disease Mother Stroke Mother Relation Status Comments Mother Social History Tobacco Use Types Packs/Day [...] Sign Reading Time Taken Comments Blood Pressure 122/66 08/18/2024 8:53 AM OUTBOUND SALES CONSULTANT Pulse 62 08/18/2024 8:53 AM OUTBOUND SALES CONSULTANT Temperature - - Respiratory Rate - - Oxygen Saturation 98% 03/12/2023 1:47 PM CDT Inhaled Oxygen Concentration - - Weight 82.1 kg (181 lb) 08/18/2024 8:53 AM OUTBOUND SALES CONSULTANT Height 170.2 cm (5' 7 ) 08/18/2024 8:53 AM OUTBOUND SALES CONSULTANT Body Mass Index 28.35 08/18/2024 8:53 AM OUTBOUND SALES CONSULTANT Plan of Treatment Upcoming Encounters Date Type Department Care Team (Late st Contact Info) Description 11/10/2024 1:00 PM CDT Office Visit [facility] [address] [facility] [address] [place] [address] Lizzeth Mohan NP [address] [facility] 1 [place] [address] Health Maintenance Due Date Last Done Comments Pneumococcal PPSV23/PCV13 65 + Years / High and Highest Risk (1 of 4 - PCV) 01/14/1960 Diabetic Foot Exam 01/14/1964 Ophthalmology Exam 01/14/1964 Influenza Vaccine (#1) 2024 3, 05/10/2021, 05/17/2019, Additional history exists Procedures Procedure Name Priority Date/Time Associated Diagnosis Comments SPECIMEN STATUS REPORT Routine 08/16/2024 1:26 PM OUTBOUND SALES CONSULTANT PTH, INTACT Routine 08/16/2024 1:26 PM OUTBOUND SALES CONSULTANT TEXT / FREE TEXT - RESULT Routine 08/16/2024 1:26 PM OUTBOUND SALES CONSULTANT URINE CULTURE, ROUTINE Routine 08/16/2024 1:26 PM OUTBOUND SALES CONSULTANT LITHOLINK CKD PROGRAM Routine 08/16/2024 1:26 PM OUTBOUND SALES CONSULTANT RENAL FUNCTION PANEL (RFP) Routine 08/16/2024 1:26 PM OUTBOUND SALES CONSULTANT MICROSCOPIC EXAMINATION Routine 08/16/2024 1:26 PM OUTBOUND SALES CONSULTANT URINALYSIS ROUTINE W/ REFLEX MICROSCOPIC Routine 08/16/2024 1:26 PM OUTBOUND SALES CONSULTANT CBC/DIFF AMBIGUOUS DEFAULT Routine 08/16/2024 1:26 PM OUTBOUND SALES CONSULTANT from Last 3 Months Results * PTH, Intact (08/16/2024 1:26 PM OUTBOUND SALES CONSULTANT) PTH, Intact, Serum/Plasma 24 15 - 65 pg/mL [facility] 1 08/16/2024 1:26 PM OUTBOUND SALES CONSULTANT 08/15/2024 11:00 PM OUTBOUND SALES CONSULTANT Narrative [facility] - 08/22/2024 4:07 PM OUTBOUND SALES CONSULTANT Performed at: [address] [place] [id number] Card Lacer Jacquard: Kvng Roca PhD, Phone: [phone] Lizzeth Mohan NP LAB BLOOD ORDERABLES [facility] 1 * Specimen Status Report (08/16/2024 1:26 PM OUTBOUND SALES CONSULTANT) Pathologist [facility] Specimen Status Report Comment [facility] 1 Comment: Ambig Abbrev RP10 Default Ambig Abbrev RP10 Default A hand-written panel/profile was received from your office. In accordance with the [facility] Ambiguous Test Code Policy dated January 2003, we have completed your order by using the closest currently or formerly recognized AMA panel. We have assigned Renal Panel (10), Test Code #212526 to this request. If this is not the testing you wished to receive on this specimen, please contact the [facility] Client Inquiry/Technical Services Department to clarify the test order. We appreciate your business. 08/16/2024 1:26 PM OUTBOUND SALES CONSULTANT 08/15/2024 11:00 PM OUTBOUND SALES CONSULTANT Narrative [facility] - 08/22/2024 4:07 PM OUTBOUND SALES CONSULTANT Performed at: [address] [place] [id number] Card Lacer Jacquard: Kvng Roca PhD, Phone: [phone] Lizzeth Edwards Marques REBOLLEDO LAB BLOOD ORDERABLES [facility] * (ABNORMAL) Text / Free Text - Result (08/16/2024 1:26 PM OUTBOUND SALES CONSULTANT) [facility] Reference lab test results Enterococcus faecalis(A) [facility] 1 Comment: For Enterococcus species, aminoglycosides (except for high-level resistance screening), cephalosporins, clindamycin, and trimethoprim-sulfamethoxazole are not effective clinically. (CLSI, [id number], 2016) 25,000-50,000 colony forming units per mL Enterococci susceptible to penicillin are predictably susceptible to ampicillin, amoxicillin, ampicillin-sulbactam, amoxicillin-clavulanate, and piperacillin-tazobactam for cxo-hrrm-spfzsyxki producing enterococci. (CLSI 2018) Note: this isolate is vancomycin-susceptible. This information is provided for epidemiologic purposes only: vancomycin is not among the antibiotics recommended for therapy of urinary tract infections caused by Enterococcus. RESULT 2 Escherichia coli(A) [facility] 1 Comment: 10,000-25,000 colony forming units per mL Cefazolin <=4 ug/mL Cefazolin with an BRADFORD <=16 predicts susceptibility to the oral agents cefaclor, cefdinir, cefpodoxime, cefprozil, cefuroxime, cephalexin, and loracarbef when used for therapy of uncomplicated urinary tract infections due to E. coli, Klebsiella pneumoniae, and Proteus mirabilis. Other Antibiotic Comment [facility] 1 Comment: S = Susceptible; I = Intermediate; R = Resistant P = Positive; N = Negative MICS are expressed in micrograms per mL Antibiotic RSLT#1 RSLT#2 RSLT#3 RSLT#4 Amoxicillin/Clavulanic Acid S Ampicillin S Cefepime S Ceftriaxone S Cefuroxime S Ciprofloxacin S S Ertapenem S Gentamicin S Imipenem S Levofloxacin S S Meropenem S Nitrofurantoin S S Penicillin S Piperacillin/Tazobactam S Tetracycline R S Tobramycin S Trimethoprim/Sulfa S Vancomycin S 08/16/2024 1:26 PM OUTBOUND SALES CONSULTANT 08/15/2024 11:00 PM OUTBOUND SALES CONSULTANT Narrative [facility] - 08/22/2024 4:07 PM OUTBOUND SALES CONSULTANT Performed at: 01 - [address] [id number] Card Lacer Jacquard: Kvng Roca PhD, Phone: [phone] Lizzeth Edwards Marques REBOLLEDO LAB BLOOD ORDERABLES [facility] * CBC/Diff Ambiguous Default (08/16/2024 1:26 PM OUTBOUND SALES CONSULTANT) Pathologist [facility] Leukocytes, Blood 6.5 3.4 - 10.8 x10E3/uL [facility] 1 Erythrocytes (RBC) 4.35 3.77 - 5.28 x10E6/uL [facility] 1 Hemoglobin (HGB) 13.1 11.1 - 15.9 g/dL [facility] 1 Hematocrit (HCT) 40.2 34.0 - 46.6 % [facility] 1 MCV 92 79 - 97 fL [facility] 1 MCH 30.1 26.6 - 33.0 pg [facility] 1 MCHC 32.6 31.5 - 35.7 g/dL [facility] 1 Erythrocyte Distribution Width (RDW) 12.6 11.7 - 15.4 % [facility] 1 Platelets, Blood 272 150 - 450 x10E3/uL [facility] 1 Neutrophils/100 leukocytes, Blood 58 Not Estab. % [facility] 1 Lymphocytes/100 leukocytes, Blood 24 Not Estab. % [facility] 1 Monocytes/100 leukocytes, Blood 11 Not Estab. % [facility] 1 Eosinophils/100 leukocytes, Blood 6 Not Estab. % [facility] 1 Basophils/100 leukocytes, Blood 1 Not Estab. % [facility] 1 Neutrophils, Blood 3.8 1.4 - 7.0 x10E3/uL [facility] 1 Lymphocytes, Blood 1.5 0.7 - 3.1 x10E3/uL [facility] 1 Monocytes, Blood 0.7 0.1 - 0.9 x10E3/uL [facility] 1 Eosinophils, Blood 0.4 0.0 - 0.4 x10E3/uL [facility] 1 Basophils, Blood 0.1 0.0 - 0.2 x10E3/uL [facility] 1 Immature granulocytes/100 leukocytes, Blood 0 Not Estab. % [facility] 1 Immature granulocytes, Blood 0.0 0.0 - 0.1 x10E3/uL [facility] 1 Comment: A hand-written panel/profile was received from your office. In accordance with the [facility] Ambiguous Test Code Policy dated January 2003, we have assigned CBC with Differential/Platelet, Test Code #[id number] to this request. If this is not the testing you wished to receive on this specimen, please contact the [facility] Client Inquiry/ Technical Services Department to clarify the test order. We appreciate your business. 08/16/2024 1:26 PM OUTBOUND SALES CONSULTANT 08/15/2024 11:00 PM OUTBOUND SALES CONSULTANT Narrative [facility] - 08/22/2024 4:07 PM OUTBOUND SALES CONSULTANT Performed at: [address] [id number] Card Lacer Jacquard: Kvng Roca PhD, Phone: [phone] Specimen Comment: A courtesy copy of this report has been sent to [phone] Lizzeth Mohan NP LAB BLOOD ORDERABLES [facility] * LithoLink CKD Program (08/16/2024 1:26 PM OUTBOUND SALES CONSULTANT) Interpretation Note [facility] 2 Comment: Particleboard Factory Worker's Note: CBC Note: A hand-written panel/profile was received from your office. In accordance with the [facility] Ambiguous Test Code Policy dated January 2003, we have assigned CBC with Differential/Platelet, Test Code #[id number] to this request. If this is not the testing you wished to receive on this specimen, please contact the [facility] Client Inquiry/ Technical Services Department to clarify the test order. We appreciate your business. Particleboard Factory Worker's Note: Edvin Carrero RP10 Default: A hand-written panel/profile was received from your office. In accordance with the [facility] Ambiguous Test Code Policy dated January 2003, we have completed your order by using the closest currently or formerly recognized AMA panel. We have assigned Renal Panel (10), Test Code #695059 to this request. If this is not the testing you wished to receive on this specimen, please contact the [facility] Client [facility]quiry/Technical Services Department to clarify the test order. We appreciate your business. Supplemental report is available. PDF Image . [facility] 2 08/16/2024 1:26 PM OUTBOUND SALES CONSULTANT 08/15/2024 11:00 PM OUTBOUND SALES CONSULTANT Narrative [facility] - 08/22/2024 4:07 PM OUTBOUND SALES CONSULTANT Performed at: [facility] / Digital [address] [place], [place] [id number] Card Lacer Jacquard: Shayy Zimmerman MD, Phone: [phone] Lizzeth Mohan INSPECTOR SHEET METAL PARTS LAB BLOOD ORDERABLES Performing Organization Address [facility]/ZIP Co de Phone Number [facility] * (ABNORMAL) Microsopic Examination (08/16/2024 1:26 PM OUTBOUND SALES CONSULTANT) Leukocytes, Urine sediment 6-10(A) 0 - 5 /hpf [facility] 1 Erythrocytes, Urine sediment None seen 0 - 2 /hpf [facility] 1 Epithelial cells, Urine sediment >10(A) 0 - 10 /hpf [facility] 1 Casts, Urine sediment None seen None seen /lpf [facility] 1 Bacteria, Urine sediment None seen None seen/Few [facility] 1 08/16/2024 1:26 PM OUTBOUND SALES CONSULTANT 08/15/2024 11:00 PM OUTBOUND SALES CONSULTANT Narrative [facility] - 08/22/2024 4:07 PM OUTBOUND SALES CONSULTANT Performed at: [address] [id number] Card Lacer Jacquard: Kvng Roca PhD, Phone: [phone] Lizzeth Mohan INSPECTOR SHEET METAL PARTS LAB BLOOD ORDERABLES Performing Organization Address [facility]/ZIP Co de Phone Number [facility] * (ABNORMAL) Renal Function Panel (RFP) (08/16/2024 1:26 PM OUTBOUND SALES CONSULTANT) Glucose, Serum/Plasma 143(H) 70 - 99 mg/dL [facility] 1 Urea nitrogen, Serum/Plasma (BUN) 18 8 - 27 mg/dL [facility] 1 Creatinine, Serum/Plasma 1.39(H) 0.57 - 1.00 mg/dL [facility] 1 Estimated Glomerular Filtration Rate (eGFR) 41(L) >59 mL/min/1.7 3 [facility] 1 Urea nitrogen/Creati nine, Serum/Plasma 13 12 - 28 [facility] 1 Sodium, Serum/Plasma 142 134 - 144 mmol/L [facility] 1 Potassium, Serum/Plasma 4.6 3.5 - 5.2 mmol/L [facility] 1 Chloride, Serum/Plasma 108(H) 96 - 106 mmol/L [facility] 1 Carbon dioxide CO2), total, Serum/Plasma 20 20 - 29 mmol/L [facility] 1 Calcium, Serum/Plasma 10.1 8.7 - 10.3 mg/dL [facility] 1 Phosphate, Serum/Plasma 3.9 3.0 - 4.3 mg/dL [facility] 1 Albumin, Serum/Plasma 4.1 3.9 - 4.9 g/dL [facility] 1 08/16/2024 1:26 PM OUTBOUND SALES CONSULTANT 08/15/2024 11:00 PM OUTBOUND SALES CONSULTANT Narrative [facility] - 08/22/2024 4:07 PM OUTBOUND SALES CONSULTANT Performed at: [address] [id number] Card Lacer Jacquard: Kvng Roca PhD, Phone: [phone] Lizzeth Mohan NP LAB BLOOD ORDERABLES Performing Organization Address [facility] de Phone Number [facility] 1 * (ABNORMAL) Urine Culture, Routine (08/16/2024 1:26 PM OUTBOUND SALES CONSULTANT) Culture, Urine, Routine Final report(A) [facility] 1 08/16/2024 1:26 PM OUTBOUND SALES CONSULTANT 08/15/2024 11:00 PM OUTBOUND SALES CONSULTANT Comment:UR Narrative [facility] - 08/22/2024 4:07 PM OUTBOUND SALES CONSULTANT Performed at: [address] [place] [id number] Card Lacer Jacquard: Kvng Roca PhD, Phone: [phone] Lizzeth Moahn NP LAB BLOOD ORDERABLES Performing Organization Address [facility] Co de Phone Number [facility] 1 * (ABNORMAL) Urinalysis, Routine W/ Reflex Microscopic (08/16/2024 1:26 PM OUTBOUND SALES CONSULTANT) Specific gravity of Urine 1.026 1.005 - 1.030 [facility] 1 pH of Urine 5.5 5.0 - 7.5 [facility] 1 Color of Urine Yellow Yellow [facility] 1 Appearance of Urine Clear Clear [facility] 1 Leukocyte esterase, Urine Trace(A) Negative [facility] 1 Protein, Urine Trace Negative/Tra ce [facility] 1 Glucose, Urine 3+(A) Negative [facility] 1 Ketones, Urine Negative Negative [facility] 1 Hemoglobin, Urine 1+(A) Negative [facility] 1 Bilirubin, total, Urine Negative Negative [facility] 1 Urobilinogen, Urine 0.2 0.2 - 1.0 mg/dL [facility] 1 Nitrite, Urine Negative Negative [facility] 1 Microscopic Examination See below: [facility] 1 Comment:Microscopic was thomas cated and was performed. 08/16/2024 1:26 PM OUTBOUND SALES CONSULTANT 08/15/2024 11:00 PM OUTBOUND SALES CONSULTANT Narrative [facility] - 08/22/2024 4:07 PM OUTBOUND SALES CONSULTANT Performed at: - [facility] [address] [id number] Card Lacer Jacquard: Kvng Roca PhD, Phone: [phone] Lizzeth Mohan INSPECTOR SHE[employer]AL [employer]S LAB URINE ORDERABLES [facility] 1 from Last 3 Months Care Teams Wage Analyst Relationship Specialty Start Date End Date Marcelino Gore MD [address] [place] [phone] PCP - General 03/01/19
--- OUTSIDE RECORDS SUMMARY | 2024-10-03 15:47 | XMS_ITS | Encounter Summary ---
Author Organization [facility] Address [address] [place] [address] Phone Care Team Providers Care Mobility Scooter Repairer Name Role Phone Marcelino Gore MD Primary Care Provider [phone] Reason for Visit * Reason Comments Med Refill Encounter Details Date Type Department Care Team ([facility] Contact Info) Description 08/21/2024 Refill [facility] [address] [place] [phone] Lizzeth Mohan NP [address] [phone] Social History Tobacco Use Types Packs/Day Years [...] Upcoming Encounters Date Type Department Care Team ([facility] Contact Info) Description 11/10/2024 1:00 PM CDT Office Visit [facility] [address] [place] [address] [address] [place], [place] [phone] Lizzeth Mohan NP [address] [phone] documented as of this encounter Visit Diagnoses Not on filedocumented in this encounter Care Teams Mobility Scooter Repairer Relationship Specialty Start Date End Date Marcelino Gore MD [address] [place] [phone] PCP - General 03/01/19 documented as of this encounter
--- OUTSIDE RECORDS SUMMARY | 2024-10-03 15:47 | XMS_ITS | Clinical Summary ---
Author Organization [address] [facility] [place] Address [address] [place] [id number] Care Team Providers Care Core Sucker Name Role Phone Marcelino Gore Primary Care Provider + Allergies Active Allergy Reactions Criticality Noted Date Comments Aspartame Diarrhea Medium 07/26/2022 Morphine Other (See comments) High 09/10/2023 Pt had bad experience: Acute drug intoxication - called EMS, almost had to complete temporary HD - went to [facility] Medications acetaminophen (TYLENOL EXTRA STRENGTH) 500 mg [...] 1 tablet (5 mg total) by mouth rib stiffener and heel dipper before breakfast 4 Active fenofibrate (TRIGLIDE) 160 mg tabletIndication s:hyperlipidemia Take 1 tablet (160 mg total) by mouth rib stiffener and heel dipper before breakfast Active dapagliflozin propanediol (FARXIGA) 10 mg tabletIndication s:type 2 diabetes mellitus Take 1 tablet (10 mg total) by mouth rib stiffener and heel dipper before breakfast 3 Active aspirin 81 mg chewable tabletIndication s:prevention of thrombosis Take 1 tablet (81 mg total) by mouth rib stiffener and heel dipper before breakfast 2 Active amLODIPine (NORVASC) 10 mg tabletIndication s:hypertension Take 1 tablet (10 mg total) by mouth rib stiffener and heel dipper before breakfast 8 Active miconazole 2 % [...] Active Problems Problem Noted Date Diagnosed Date [place]-neck deformity of left finger(s) 02/25/2024 Left radial [...] 08/09/2022 Assessment & Plan (08/13/2022 6:43 AM LOOM INSPECTOR): Has erythema, warmth with more drainage. Will start on amoxicillin 500 mg b.i.d. x5 days, doxycycline 100 mg b.i.d. x5 days, started on 08/09/22. Continue pain management with Tylenol 650 Q 6. Continue wound care. Assessment & Plan (08/09/2022 6:49 PM LOOM INSPECTOR): Has erythema, warmth with more drainage. Will start on amoxicillin 500 mg b.i.d. x5 days, doxycycline 100 mg b.i.d. x5 days. Continue pain management with Tylenol 650 Q 6. Continue wound care. Moderate vascular dementia w ithout behavioral disturbance, psychotic disturbance, mood disturbance, or anxiety 08/09/2022 Assessment & Plan (08/13/2022 6:45 AM LOOM INSPECTOR): Patient is pleasantly confused. No behaviors. Slums 16/30. Continue Zoloft 100 mg daily. Continue supportive care. Patient need supervision and care after discharge Assessment & Plan (08/09/2022 6:58 PM LOOM INSPECTOR): Patient is pleasantly confused. No behaviors. Slums 16/30. Continue Zoloft 100 mg daily. Continue supportive care. Patient need supervision and care after discharge Closed fracture of shaft of left humerus with routine healing 08/07/2022 Assessment & Plan (08/13/2022 6:42 AM LOOM INSPECTOR): Due to fall. Imaging revealed left humeral shaft fracture, complicated with radial nerve palsy. Orthopedic managed conservatively with brace. SHAMIKA PRADHAN. Pain management with Tylenol 650 Q 6. Patient had follow-up with Dr. Thomas today. Recommended to continue Left arm brace, according to special instructions for placement and cleaning.Pt will be dc today to [facility]. Assessment & Plan (08/09/2022 6:51 PM LOOM INSPECTOR): Pain overall controlled. Reminded patient that has follow-up with Dr. Thomas 08/11/2022. Daughter to provide transportation. Assessment & Plan (08/07/2022 6:17 AM LOOM INSPECTOR): Due to fall. Imaging revealed left humeral shaft fracture, complicated with radial nerve palsy. Orthopedic managed conservatively with brace. SHAMIKA PRADHAN. Pain management with Tylenol 650 Q 6. Patient follow-up with Dr. Thomas on 08/11/22 for repeat imaging and treatment plan Paroxysmal A-fib 08/07/2022 Assessment & Plan (08/13/2022 6:43 AM LOOM INSPECTOR): Patient developed paroxysmal AFib while inpatient, was started on metoprolol 25 mg b.i.d. and Eliquis 5 mg b.i.d., which later placed on hold due to GI Assessment & Plan (08/07/2022 6:18 AM LOOM INSPECTOR): Patient developed paroxysmal AFib while inpatient, was started on metoprolol 25 mg b.i.d. and Eliquis 5 mg b.i.d., which later placed on hold due to GI Gastrointestinal hemorrhage with melena 08/07/19 Assessment & Plan (08/13/2022 6:46 AM LOOM INSPECTOR): Patient was started on Eliquis for AFib, followed by acute blood loss anemia. Home med Plavix, Eliquis placed on hold. EGD done showed multiple gastric and duodenal ulcers. Status post blood transfusions. H pylori negative. Denies any melena or GI bleed now. Continue pantoprazole 40 mg b.i.d.. Avoid NSAIDs, AC till follow-up with GI. Assessment & Plan (08/07/2022 6:32 AM LOOM INSPECTOR): Patient was started on Eliquis for AFib, [...] 08/07/2022 Assessment & Plan (08/13/2022 6:43 AM LOOM INSPECTOR): 2/2 GIB (gastric, duodenal ulcers). Received blood transfusions. Hold NSAIDs, anticoagulants. CBC check a.m. Assessment & Plan (08/07/2022 6:20 AM LOOM INSPECTOR): 2/2 GIB (gastric, duodenal ulcers). Received blood transfusions. Hold NSAIDs, anticoagulants. CBC check a.m. Acute kidney injury superimposed on chronic kidn ey disease 08/07/2022 Assessment & Plan (08/13/2022 6:45 AM LOOM INSPECTOR): Baseline creatinine around 1. Was elevated while inpatient. Will hold chlorthalidone now, till BMP results. If creatinine elevated may consider holding lisinopril as well. Avoid nephrotoxic drugs. Monitor renal function Assessment & Plan (08/07/2022 6:30 AM LOOM INSPECTOR): Baseline creatinine around 1. Was elevated while [...] 08/27/2021 Assessment & Plan (08/13/2022 6:45 AM LOOM INSPECTOR): Patient currently asymptomatic. No seizure episode. Continue home med Keppra 750 mg b.i.d.. Will check Keppra level next labs. Assessment & Plan (08/07/2022 6:31 AM LOOM INSPECTOR): Patient currently asymptomatic. No seizure episode. Continue home med Keppra 750 mg b.i.d.. Will check Keppra level next labs. Depressive disorder 08/27/2021 Assessment & Plan (08/13/2022 6:45 AM LOOM INSPECTOR): Mood currently stable. Continue home med sertraline 100 mg daily. Assessment & Plan (08/07/2022 6:31 AM LOOM INSPECTOR): Mood currently stable. Continue home med sertraline [...] 03/14/2019 Assessment & Plan (08/13/2022 6:44 AM LOOM INSPECTOR): Continue Lipitor 40 mg daily, Zetia Assessment & Plan (08/07/2022 6:32 AM LOOM INSPECTOR): Continue Lipitor 40 mg daily, Zetia Encounter for screening for cardiovascular disor ders 03/14/2019 Hypomagnesemia 03/14/2019 Palpitations 03/14/2019 Essential hypertension 03/08/2019 Assessment & Plan (08/13/2022 6:44 AM LOOM INSPECTOR): Blood pressure and heart rate fluctuates. Continue amlodipine 10 mg, lisinopril 40 mg, metoprolol 25 mg b.i.d. added due to AFib while inpatient. Will hold down 25 mg for now due to elevated creatinine last labs. Monitor blood pressure, adjust meds accordingly. Assessment & Plan (08/07/2022 6:22 AM LOOM INSPECTOR): Blood pressure and heart rate fluctuates. Continue [...] 04/28/2016 Assessment & Plan (08/13/2022 6:44 AM LOOM INSPECTOR): A1c 6.6 a year ago. Continue Lantus 12 units bedtime, Tradjenta 5 mg, glipizide 5 mg. Will check A1c level next labs. Monitor Accu-Cheks Assessment & Plan (08/07/2022 6:26 AM LOOM INSPECTOR): A1c 6.6 a year ago. Continue Lantus [...] on file Legal Sex Female 3:49 AM LOOM INSPECTOR Gender Identity Not on file Sexual Orientation [...] testing HEMOGLOBIN A1C Routine 08/28/2021 4:53 AM LOOM INSPECTOR OCCULT BLOOD, FECAL (FIT) Routine 03/18/2018 8:45 [...] BLOOD ORDERABLES Final Re sult BLAYNE VIERA [address] [facility] Department [place] [address] * (ABNORMAL) Hemoglobin A1c (08/28/2021 4:53 AM LOOM INSPECTOR) Hgb A1C 6.6(H) 4.0 - 5.6 % BLAYNE Comment:Testing performed by : [facility], [address] [place] [address]., [id number] Estimated Average Glucose 143 mg/dL BLAYNE Comment: The ADA recommends reporting an estimated Average Glucose (eAG) with all Hemoglobin A1c results using the equation derived from a study of 507 normal and diabetic adults. Minority populations were underrepresented and children were not included. (Diabetes Care 31:0643-6619, 2008). The eAG is not equivalent to a fasting glucose. Testing performed by: [facility], [address] [place] [address]., [id number] Blood 08/28/2021 4:53 AM LOOM INSPECTOR 08/28/2021 5:00 AM LOOM INSPECTOR Janet Guan DO LAB BLOOD ORDERABLES Final Re sult Performing Organization Address City/[facility]/ZIP Co de Phone Number [facility] [address] [facility] Department [place] [address] * Occult blood, fecal non neoplasm screening (03/18/2018 8:45 PM CDT) [facility] Stool Occult Blood POSITIVE NEGATIVE 03/18/2018 8:45 PM CDT 03/18/2018 10:08 PM CDT Kassandra Saab NP LAB BODY FLUIDS AND STOOLS ORDER JIM Final Result [facility] HISTORICAL RESULTS * (ABNORMAL) TNI with LIPID PANEL (11/29/2016 3:21 PM CDT) [facility] Troponin I < 0.300 0.000 - 0.300 [...] PM CDT 11/29/2016 3:28 PM CDT Narrative [facility] HISTORICAL RESULTS - 11/29/2016 3:54 PM CDT us Lester Marcelino Mccann MD LAB BLOOD ORDERABLES Final Result [facility] HISTORICAL RESULTS from Last 3 Months or Most Recently Relevant to Health Maintenance Insurance MEDICARE MEDICARE IDMI IDMI MEDICARE Advance Directives For more information, please contact: [phone] * Full Code (Latest Code Status on File) Date Activated Date Inactivated Comments 11/05/2022 11:01 AM 11/05/2022 5:09 PM Healthcare Agents on File Name Relationship Healthcare Agent [facility] Communication Prakash Olson Friend Second Alternate Health Care Agent Care Teams Core Sucker Relationship Specialty Start Date End Date Marcelino Gore PA [address] [place] [id number] PCP - General 09/08/19
--- OUTSIDE RECORDS SUMMARY | 2024-10-03 15:47 | XMS_ITS | Clinical Summary ---
Author Organization [facility] Address [address] [place] [address] Care Team Providers Care Habilitative Interventionist Name Role Phone Allie Sinclair PA-C Primary Care Provider [phone] Allergies Active Allergy Reactions Criticality Noted Date Comments Aspartame Diarrhea 07/26/2022 Morphine Other (see comment) High 09/10/2023 Pt had bad experience: Acute drug intoxication - called EMS, almost had to complete temporary HD - went to [facility] Medications amlodipine 10 MG tablet Take [...] lacosamide (VIMPAT) 100 MG TabIndications :Seizure disorder ([facility]) Take 1 [...] Date Confusion 05/26/2024 Acute metabolic encephalopathy 03/15/2024 [place]-neck deformity of left finger(s) 02/25/2024 Obstructive sleep apnea syndrome 10/09/2022 Atrial fibrillation ([facility]) 08/26/2022 Obesity, Class II, BMI 35-39.9 07/12/2022 Paroxysmal atrial fibrillati on with rapid ventricular response ([facility]) 07/12/2022 Overview (02/13/2023): Last Assessment & Plan: Patient developed paroxysmal AFib while inpatient, was started on metoprolol 25 mg b.i.d. and Eliquis 5 mg b.i.d., which later placed on hold due to GI Tachycardia 07/11/2022 H/O: CVA (cerebrovascular accident) 07/08/2022 Altered mental status 07/07/2022 COVID-19 virus infection 08/27/2021 TIA (transient ischemic attack) 08/27/2021 Seizure disorder ([facility]) 10/26/2020 Hyperlipidemia 03/14/2019 Overview (02/13/2023): [...] mellitus wit h other diabetic kidney complication ([facility]) 04/28/2016 Overview (02/13/2023): Last Assessment & Plan: A1c 6.6 a year ago. Continue Lantus 12 units bedtime, Tradjenta 5 mg, glipizide 5 mg. Will check A1c level next labs. Monitor Accu-Cheks Encounters Date Type Department Care Team Description 09/27/2024 11:15 AM CDT Telephone [facility] [address] [place] [address] Deandra Mcghee PA Holter Monitor 09/22/2024 Telephone [facility] - [facility] [address] [facility], [address] [place] [phone] Justine Can MD Information 09/20/2024 10:00 AM POWDER WORKER TNT Office Visit [facility] [address] [place] [address] Deandra Mcghee PA Follow Up; Atrial Fibrillation 09/20/2024 Telephone [facility] - [address], [address] [place] [phone] Justine Can MD Appointment Request; Information 09/20/2024 Travel 08/29/2024 10:20 AM POWDER WORKER TNT Office Visit [facility] - [facility] [address] [facility], [address] [place] [phone] Justine Can MD Follow Up 08/29/2024 Travel [...] = 0.6 oz pur e alcohol) socially [facility] [employer] Answer Date Recorded In the past 12 months has e [employer], gas, oil, or water [employer] threatened to shut off services in your [...] any time in the past [address] [facility], were you homeless or living in a nursing home (including now)? No 05/27/2024 Comments No Sex and Gender Information Value Date Recorded Sex Assigned at Female 09/20/2024 9:45 AM POWDER WORKER TNT Legal Sex Female 6:56 PM CDT Gender Identity Not on file Sexual Orientation Not on file Last Filed Vital Signs Vital Sign Reading Time Taken Comments Blood Pressure 146/82 09/20/2024 9:56 AM POWDER WORKER TNT Pulse 61 09/20/2024 9:56 AM POWDER WORKER TNT Temperature 36.1 C (96.9 F) 08/29/2024 10:39 AM POWDER WORKER TNT Respiratory Rate 16 08/29/2024 10:39 AM POWDER WORKER TNT Oxygen Saturation 99% 09/20/2024 9:56 AM POWDER WORKER TNT Inhaled Oxygen Concentration - - Weight 81.2 kg (179 lb) 09/20/2024 9:56 AM POWDER WORKER TNT Height 170.2 cm (5' 7 ) 09/20/2024 9:56 AM POWDER WORKER TNT Body Mass Index 28.04 09/20/2024 9:56 AM POWDER WORKER TNT Plan of Treatment Upcoming Encounters Date Type Department Care Team (Late st Contact Info) Description 10/11/2024 10:20 AM CDT [facility] [address] [facility], [address] [place] [phone] Justine Can MD [address] [place] [address] 03/02/2025 10:20 AM CDT [facility] [address] [facility], [address] [place] [phone] Justine Can MD [address] [place] [address] 04/04/2025 10:30 AM CDT Office Visit [facility], [address] [place] [address] Jefry Tineo MD [facility]. [address] [place] [address] Health Maintenance Due Date Last Done Comments [...] 04/01/2022 Hepatitis C Completed 07/24/2022 PHQ-2 (Physician [place]) Completed 08/29/2024 Meningococcal B Vaccine Aged Out No l onger eligible based on patient's age to complete this topic Meningococcal Vaccine Aged Out No aidee jayne eligible based on patient's age to complete this topic RSV Immunizations Under 20 Months Aged Out No longer eligible based on patient's age to complete this topic Medical Devices Implanted Type Area Air Support Operations Operator Device Identifier Shelf Expiration Date Model / Serial / Lot Plate Synthes 2.4 Va-Lcp Vlr Dist Radius 6h Hd/3h Shaft Right - [id number] Implanted:Qty: 1 on 11/24/2017 by Godwin Aguirre MD at [facility] [place] Plate Right: Arm SYNTHES 11/24/2017 [id number] / / NA Screw Synthes 2.4 Locking Stardrive 14mm - [id number] Implanted:Qty: 2 on 11/24/2017 by Godwin Aguirre MD at [facility] [place] Screw Right: Arm SYNTHES 11/24/2017 [id number] / / NA Screw Synthes 2.4 Locking Stardrive 16mm - [id number] Implanted:Qty: 1 on 11/24/2017 by Godwin Aguirre MD at [facility] [place] Screw Right: Arm SYNTHES 11/24/2017 02.210.116 / / NA Screw Synthes 2.4 Locking Stardrive 18mm - [id number] Implanted:Qty: 1 on 11/24/2017 by Godwin Aguirre MD at [facility] [place] Screw Right: Arm SYNTHES 11/24/2017 02.210.118 / / NA Screw Synthes 2.4 Locking Stardrive 20mm - [id number] Implanted:Qty: 1 on 11/24/2017 by Godwin Aguirre MD at [facility] [place] Screw Right: Arm SYNTHES 11/24/2017 02.210.120 / / NA Screw Synthes 2.4 Locking Stardrive 18mm - [id number] Implanted:Qty: 1 on 11/24/2017 by Godwin Aguirre MD at [facility] [place] Screw Right: Arm SYNTHES 11/24/2017 02.210.118 / / NA Screw Synthes 2.7 Cortical Self Tap 14mm - [id number] Implanted:Qty: 1 on 11/24/2017 by Godwin Aguirre MD at [facility] [place] Right: Arm SYNTHES 11/24/2017 [id number] / / NA Screw Synthes 2.7 Cortical Self Tap 12mm - [id number] Implanted:Qty: 2 on 11/24/2017 by Godwin Aguirre MD at [facility] [place] Right: Arm SYNTHES 11/24/2017 [id number] / / NA Explanted Type Area Air Support Operations Operator Device Identifier Shelf Expiration Date Model / Serial / Lot Wire Synthes 1.5mm Jenn 150mm W/Trocar Point - [id number] Implanted:Qty: 1 Explanted:Qty: 1 on 11/24/2017 by Godwin Aguirre MD at [facility] [place] Right: Arm SYNTHES 11/24/2017 [id number] / / [...] Documents on File Type Date Recorded Patient Bull Float Finisher Expl anation Advance Directives and Livin g Will 06/01/2024 3:14 PM * Full Code (Latest Code Status on File) Date Activated Date Inactivated Comments 05/26/2024 3:19 PM 05/31/2024 8:06 PM * Full Code Date Activated Date Inactivated Comments 03/15/2024 8:38 AM 03/19/2024 4:15 PM Healthcare Agents on File Name Relationship Healthcare Agent [facility] Communication Claudia GUARDADO Marques Daughter Health Care Agent Estrella (1st Alt) Flach Relative First Alter [facility] Agent Care Teams Habilitative Interventionist Relationship Specialty Start Date End Date Allie Sinclair PA-C PCP - General PHYSICIAN SINK CUTTER 01/29/23
--- OUTSIDE RECORDS SUMMARY | 2024-10-03 15:47 | XMS_ITS | CONTINUITY OF CARE DOCUMENT ---
Author Name jaqueline parsons Address Unknown Organization [facility] Address [address] [place] [address] Phone [phone] Care Team Providers Care Entertainment Dancer Name Role Phone Lc Abernathy MD Unavailable [phone] MADY MORAN Unavailable [phone] MADY MORAN Unavailable [phone] PROBLEMS Condition Status Date Provider Notes Seizure [...] In-person encounter Office Visit Lc Abernathy MD [place] [facility] 4 - 5 In-person encounter Office Visit Lc [place] [facility] 3 - 3 In-person encounter Office Visit Lc Abernathy MD [place] [facility] 6 - 6 In-person encounter Office Visit Lc Abernathy MD [place] [facility] Cardiology examinationFamily History of Hypertension:Family History of CVA or Stroke:Family History of CVA or Stroke:Family History of Hypertension:HTN essentialDiabetes mellitusPalpitationsHyperlipidemia VITAL SIGNS Date Observation Value Provider Body Mass Index (Ratio) 38.37 kg/m2 [place] Abernathy MD blood pressure, diastolic 80 mm[Hg] Li nkLog blood pressure, systolic 130 mm[Hg] Estella kLog blood pressure, cuff size large Jonathon xiao [place] blood pressure, diastolic 80 mm[Hg] Jonathon ninoska [place] blood pressure, systolic 130 mm[Hg] Nadia brown [place] oxygen saturation, oximetry 97 % [facility] E&M 15 /min [facility] pulse rate 74 /min [facility] weight E&M 245 [lb_av] [facility] height E&M 67 [in_i] [facility] Body Mass Index (Ratio) 38.68 kg/m2 Dallas [...] / Coverage type Dinesh red republican ID [facility] [id number] [place] MEDICARE PART B Medicare [id number] ADVANCE DIRECTIVES Name Date DISCUSSED - NO DECISION MADE TREATMENT PLAN Date Name Performer [id number],S, H er updated medication list for this problem includes: Ezetimibe 10 Mg Tablet (Ezetimibe) ..... Take 1 tablet once a day Atorvastatin 40 Mg Tablet (Atorvastatin) ..... Take 1 tablet once a day Lc Abernathy MD [id number],B, B P today: 130/80 P rior BP: 187/84 (09/30/2021) Her updated medication list for this problem includes: Lisinopril 20 Mg Tablet (Lisinopril) ..... Take 1 tablet by mouth once a day Metoprolol Tartrate 25 Mg Tablet (Metoprolol tartrate) ..... 1 tablet twice a day Lc Abernathy MD [id number],B, N o palps. Tele monitor showed sinus bradycardia with extra beats, no significant arrhythmias. Lc Abernathy MD [id number],S, P er PCP Her updated medication list for this problem includes: Lisinopril 20 Mg Tablet (Lisinopril) ..... Take 1 tablet by mouth once a day Glipizide 5 Mg Tablet (Glipizide) ..... Take 1 tablet once a day Januvia 100 Mg Tablet (Sitagliptin) ..... Take 1 tablet once a day Lc Abernathy MD [id number],C, N o palps. Currently on a heart monitor since being in the hospital . Lc Abernathy MD [id number],C, H ad an admission to [facility] for a grand mal seizure. Keppra was increased in the hospital. Feeling well today Lc Abernathy MD [id number],C, H er updated medication list for this problem includes: Ezetimibe 10 Mg Tablet (Ezetimibe) ..... Take 1 tablet once a day Atorvastatin 40 Mg Tablet (Atorvastatin) ..... Take 1 tablet once a day Lc Abernathy MD [id number],C,B P elevated, will increase Lisinopril to 20 [...] MD Cardiology: H ad an admission to [facility] for a grand mal seizure. 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 Lc Abernathy MD Cardiology [place] nt :Will restart metoprolol 25 mg twice daily. Will check an echo. B P today: 128/78 Lc Abernathy MD Date Name BASIC METABOLIC PANE L W/EGFR Holter Monitor 48 hr Complete Echo HISTORY OF PROCEDURES Procedure Date Procedure Name Provider Procedure Notes S tatus EKG Lc Abernathy MD completed
--- OUTSIDE RECORDS SUMMARY | 2024-10-03 15:47 | XMS_ITS | Referral Summary ---
Author Organization [facility] Address [address] [place] [address] Care Team Providers Care Health Safety Manager Name Role Phone Allie Sinclair PA-C Primary Care Provider [phone] Source Comments [facility],non-owned Affiliates and Associated Physician Practices is amultiple site organization consisting of ambulatory clinics and hospital sitesin [place], [place], [place] and [place]. This disclosure is being madepursuant to the Care Everywhere program and may not contain all information available regarding this patient. Last updated 18.[facility] Allergies Active Allergy Reactions Criticality Noted Date Comments Artificial Sweeteners Diarrhea Medium 07/26/2022 Aspartame Diarrhea Medium 07/26/2022 Morphine Other High 09/10/2023 Pt had bad experience: Acute drug intoxication - called EMS, almost had to complete temporary HD - went to [facility] Medications * Be aware that medications may [...] 09/10/2023 midazolam (Nayzilam) 5 MG/0.1ML nasal spray Marmora 0.1 mL into the nose as needed for Seizures Lasting longer than 5 minutes. Can administer second dose in other nostril if seizure continues after 10 minutes. 4 Each 5 09/04/2022 Active Additional Information Patient not taking.Reported on 11/07/2022 Cholecalciferol 1.25 MG (80242 UT) cholecalciferol (vitamin D3) 1,250 mcg (50,000 unit) capsule TAKE 1 CAPSULE BY MOUTH EVERY WEEK WITH FOOD Active saline nasal spray ([place]; Baby [place]) 0.65 % nasal spray Marmora 1 (one) spray to 2 (two) sprays [...] morning 07/07/2023 Active Blood Glucose Monitoring Suppl (Notegraphy Verio Flex System) w/Device KIT USE TO CHECK BLOOD SUGAR THREE TIMES DAILY 05/04/2023 Active amLODIPine (Norvasc) 10 MG tablet Take 1 (one) tablet by mouth every morning 07/21/2023 Active fenofibrate (Lofibra) 160 MG tablet TAKE 1 TABLET BY MOUTH EVERY DAY WITH MEALS 08/17/2023 Active Notegraphy Verio test strip USE TO CHECK BLOOD SUGAR TWICE DAILY 05/05/2023 Active Lancets (Youchange HoldingsTOUCH DELICA PLUS 33G EXTRA FINE LANCET) USE [...] and cleaning.Pt will be dc today to [facility]. 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 Not hard at all 11/29/2022 [facility] [place] [facility] Occupat ional Health - Occupational Stress [...] place to sleep or slept in a fdc (including now)? No 11/29/2022 Sex and Gender Information Value Date Recorded Sex Assigned at Not on file Gender Identity Not on file Sexual Orientation Not on file Last Filed Vital Signs Vital Sign Reading Time Taken Comments Blood Pressure 123/68 09/17/2023 3:50 PM SCHEDULE PLANNING MANAGER Pulse 68 09/17/2023 3:50 PM SCHEDULE PLANNING MANAGER Temperature 36.5 C (97.7 F) 09/17/2023 3:27 PM SCHEDULE PLANNING MANAGER Respiratory Rate 13 09/17/2023 3:50 PM SCHEDULE PLANNING MANAGER Oxygen Saturation 98% 09/17/2023 3:50 PM SCHEDULE PLANNING MANAGER Inhaled Oxygen Concentration 25% 07/23/2022 1 0:00 AM SCHEDULE PLANNING MANAGER Weight 90.9 kg (200 lb 6.4 oz) 09/17/2023 12:34 PM SCHEDULE PLANNING MANAGER Height 170.2 cm (5' 7 ) 09/17/2023 12:34 PM SCHEDULE PLANNING MANAGER Body Mass Index 31.39 09/17/2023 12:34 PM SCHEDULE PLANNING MANAGER Functional Status Functional Status Response Date of [...] on file Medical Devices Implanted Type Area Call Center Receptionist Device Identifier Shelf Expiration Date Model / Serial / Lot Parth Bone Void 5cc Dbm Allosync Ptty Implanted:Qty: 2 on 11/25/2022 by Robbie Mccann MD at [facility] Left: Humerus [employer] 04/23/2026 [id number] / / Screw 3.5mm 32mm T15 Slf-Tap Lck Tpr Implanted:Qty: 1 on 11/25/2022 by Robbie Mccann MD at [facility] Left: Humerus Fadi [employer] [id number] / / Screw 3.5mm 36mm T15 Slf-Tap Lck Tpr Implanted:Qty: 1 on 11/25/2022 by Robbie Mccann MD at [facility] Left: Humerus [employer] [id number] / / Screw 3.5mm 38mm T15 Slf-Tap Lck Tpr Implanted:Qty: 1 on 11/25/2022 by Robbie Mccann MD at [facility] Left: Humerus [employer] [id number] / / Screw 3.5mm 42mm T15 Lck Slf-Tap Tip Tpr Implanted:Qty: 1 on 11/25/2022 by Robbie Mccann MD at [facility] Left: Humerus [employer] [id number] / / Screw 3.5mm 46mm T15 Slf-Tap Lck Tpr Implanted:Qty: 1 on 11/25/2022 by Robbie Mccann MD at [facility] Left: Humerus [employer] [id number] / / Screw 3.5mm 48mm T15 Slf-Tap Lck Tpr Implanted:Qty: 1 on 11/25/2022 by Robbie Mccann MD at [facility] Left: Humerus [employer] [id number] / / Screw 3.5mm 46mm T15 Lck Mldir Nonster Implanted:Qty: 1 on 11/25/2022 by Robbie Mccann MD at [facility] Left: Humerus [employer] [id number] / / Graft Bone Infs Rhbmp-2 Bvn Clgn Lg 8ml Implanted:Qty: 1 on 11/25/2022 by Robbie Mccann MD at [facility] Left: Humerus Med[employer] Inc 07/20/2024 [id number] / / [id number] Graft Bone Almtr Dbm Canc 5ml Algrf Ptty - [id number] Implanted:Qty: 1 on 11/25/2022 by Robbie Mccann MD at [facility] Left: Humerus Jings[employer] 09/22/2023 [id number] / [id number] / Alps Proximal Humerus Low Plate Left 11 H, 190mm Implanted:Qty: 1 on 11/25/2022 by Robbie Mccann MD at [facility] Left: Humerus [id number] / / Screw 3.5mm 20mm T15 Lopro Nonlock Implanted:Qty: 3 on 11/25/2022 by Robbie Mccann MD at [facility] Left: Humerus [employer] [id number] / / Screw 3.5mm 22mm T15 Nonlock Lopro Implanted:Qty: 1 on 11/25/2022 by Robbie Mccann MD at [facility] Left: Humerus [employer] [id number] / / Screw 3.5mm 24mm T15 Nonlock Lopro Implanted:Qty: 1 on 11/25/2022 by Robbie Mccann MD at [facility] Left: Humerus [employer] [id number] / / Screw 3.5mm 32mm T15 Nonlock Lopro Implanted:Qty: 1 on 11/25/2022 by Robbie Mccann MD at [facility] Left: Humerus [employer] [id number] / / Explanted Type Area Call Center Receptionist Device Identifier Shelf Expiration Date Model / Serial / Lot Screw 3.5mm 36mm T15 Slf-Tap Lck Tpr Explanted:Qty: 1 on 11/25/2022 by Robbie Mccann MD at [facility] Left: Humerus [employer] [id number] / / Screw 3.5mm 48mm T15 Slf-Tap Lck Tpr Explanted:Qty: 2 on 11/25/2022 by Robbie Mccann MD at [facility] Left: Humerus [employer] [id number] / / Wire K 2mm 152mm Top Tray Ss Fx Explanted:Qty: 4 on 11/25/2022 by Robbie Mccann MD at [facility] Left: Humerus [employer] [id number] / / Screw 3.5mm 24mm T15 Nonlock Lopro Explanted:Qty: 1 on 11/25/2022 by Robbie Mccann MD at [facility] Left: Humerus [employer] [id number] / / Procedures Procedure Name Priority Date/Time Associated Diagnosis Comments RENAL FUNCTION PANEL AM Draw 12/04/2022 2:46 AM CDT HEMOGLOBIN A1C Routine 11/26/2022 1:18 AM CDT Other fracture of shaft of left humerus, subsequent encounter for fracture with malunion HEPATITIS SCREEN ACUTE AM Draw 07/24/2022 4:12 AM SCHEDULE PLANNING MANAGER from Last 3 Months or Most Recently Relevant to Health Maintenance Results * (ABNORMAL) RENAL FUNCTION PANEL (12/04/2022 2:46 AM CDT) BUN 7 7 - 26 mg/dL 12/04/2022 4:03 AM [facility] Creatinine 0.98(H) 0.56 - 0.96 mg/dL 12/04/2022 4:03 AM [facility] Sodium 149(H) 136 - 145 mmol/L 12/04/2022 4:03 AM T [facility] Potassium 4.4 3.5 - 4.5 mmol/L 12/04/2022 4:03 AM [facility] Chloride 112(H) 98 - 107 mmol/L 12/04/2022 4:03 AM [facility] CO2 18(L) 22 - 29 mmol/L 12/04/2022 4:03 AM [facility] Glucose 155(H) 70 - 115 mg/dL 12/04/2022 4:03 AM [facility] Albumin 2.6(L) 3.4 - 5.0 g/dL 12/04/2022 4:03 AM [facility] Calcium 9.0 8.4 - 10.2 mg/dL 12/04/2022 4:03 AM [facility] Phosphorus 3.7 2.9 - 5.1 mg/dL 12/04/2022 4:03 AM [facility] Anion Gap 23(H) 8 - 18 12/04/2022 4:03 AM [facility] BUN/Creatinine Ratio 7 7 - 23 12/04/2022 4:03 AM [facility] Osmolality Calculated 309(H) 270 - 300 mOsm/kg 12/04/2022 4:03 AM [facility] eGFR by CKD-EPI 63(L) >=90 mL/min/1.7 3 m2 12/04/2022 4:03 AM [facility] Blood BLOOD SPECIMEN / Unknown Lab Venipuncture / Unknown 12/04/2022 2:46 AM CDT 12/04/2022 3:24 AM T Blaine Campo MD LAB - CHEMISTRY ORD ERABLES [facility] [address] [place] [address], [facility] [phone] * (ABNORMAL) HEMOGLOBIN A1C (11/26/2022 1:18 AM CDT) Hemoglobin A1c 9.1(H) <=5.6 % 11/26/2022 1:26 PM [facility] Estimated Average Glucose 214 mg/dL 11/26/2022 1:26 PM [facility] Comment: HbA1c Interpretation: Normal : < 5.7% Pre-diabetes: 5.7-6.4% Diabetes: Equal to or greater than 6.5% Test results diagnostic of diabetes should be repeated for confirmation. Treatment target values recommended by ADA and other clinical organizations should be used to evaluate metabolic control in patients. Reference: [place] Diabetes Association, Standards of Care in Diabetes -2020 In patients 70 years and older consider HbA1c target range of 7.0-7.5% (Reference: Coyd Garcia et al. JAMDA. 2012) The Sebia assay for the measurement of HbA1c is a National Glycohemoglobin Standardization Program (NGSP) certified method. Blood BLOOD SPECIMEN / Unknown Lab Venipuncture / Unknown 11/26/2022 1:18 AM CDT 11/26/2022 1:26 AM CDT Robbie Mccann MD LAB - CHEMISTRY ALEXEIE JONATHAN [address] [address], [place] [phone] * HEPATITIS SCREEN ACUTE (07/24/2022 4:12 AM SCHEDULE PLANNING MANAGER) Pathologist [facility] Hepatitis A Virus Antibody IgM Non-react bartolome Non-reac tive 07/24/2022 5:11 AM SCHEDULE PLANNING MANAGER [facility] Hepatitis B Virus Surface Antigen Non-react bartolome Non-reac tive 07/24/2022 5:11 AM SCHEDULE PLANNING MANAGER [facility] Hepatitis B Core Virus Antibody IgM Non-react bartolome Non-reac tive 07/24/2022 5:11 AM [facility] Hepatitis C Antibody Non-react bartolome Non-reac tive 07/24/2022 5:11 AM [facility] Comment:Hepatitis C Antibody screen indicates no serologic evidence of past or current infection with Hepatitis C Virus. Patients with unexplained liver disease who are immunocompromised or suspected of having acute Hepatitis C infection may benefit from Nucleic Acid Test (CHA) for Hepatitis C Viral RNA to confirm Hepatitis C status. Blood BLOOD SPECIMEN / Unknown Venipuncture / Unknown 07/24/2022 4:12 AM SCHEDULE PLANNING MANAGER 07/24/2022 4:37 AM SCHEDULE PLANNING MANAGER Sarabjit Gutierrez MD LAB - CHEMISTRY ORDERABLES [address] [address], [place] [phone] from Last 3 Months or Most Recently Relevant to Health Maintenance Advance Directives Documents on File Type Date Recorded Patient Brown Sourer Expl anation Adv Directive/Living Will/POA 08/01/2022 11:56 [...] Mohan Daughter Health Care Agent Care Teams Health Safety Manager Relationship Specialty Start Date End Date Allie Sinclair PA-C [address] [place] [address] PCP - General 07/08/22
--- OUTSIDE RECORDS SUMMARY | 2024-10-03 15:47 | XMS_ITS | Referral Summary ---
Author Organization [facility] [employer] [place] Address [address] [place] [id number] Care Team Providers Care Food And Beverage Controller Name Role Phone Marcelino Gore Primary Care Provider + Allergies Active Allergy Reactions Criticality Noted Date Comments Aspartame Diarrhea Medium 07/26/2022 Morphine Other (See comments) High 09/10/2023 Pt had bad experience: Acute drug intoxication - called EMS, almost had to complete temporary HD - went to [facility] Medications acetaminophen (TYLENOL EXTRA STRENGTH) [...] 1 tablet (5 mg total) by mouth computer game designer before breakfast 4 Active fenofibrate (TRIGLIDE) 160 mg tabletIndication s:hyperlipidemia Take 1 tablet (160 mg total) by mouth computer game designer before breakfast Active dapagliflozin propanediol (FARXIGA) 10 mg tabletIndication s:type 2 diabetes mellitus Take 1 tablet (10 mg total) by mouth computer game designer before breakfast 3 Active aspirin 81 mg chewable tabletIndication s:prevention of thrombosis Take 1 tablet (81 mg total) by mouth computer game designer before breakfast 2 Active amLODIPine (NORVASC) 10 mg tabletIndication s:hypertension Take 1 tablet (10 mg total) by mouth computer game designer before breakfast 8 Active miconazole 2 % [...] Active Problems Problem Noted Date Diagnosed Date [place]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 Will start on amoxicillin 500 mg b.i.d. x5 days, doxycycline 100 mg b.i.d. x5 days, started on 08/09/22. Continue pain management with Tylenol 650 Q 6. Continue wound care. Assessment & Plan (08/09/2022 6:49 PM STORE ADMINISTRATIVE ASSISTANT): Has erythema, warmth with more drainage. Will start on amoxicillin 500 mg b.i.d. x5 days, doxycycline 100 mg b.i.d. x5 days. Continue pain management with Tylenol 650 Q 6. Continue wound care. Moderate vascular dementia w ithout behavioral disturbance, psychotic disturbance, mood disturbance, or anxiety 08/09/2022 Assessment & Plan (08/13/2022 6:45 AM STORE ADMINISTRATIVE ASSISTANT): Patient is pleasantly confused. No behaviors. Slums 16/30. Continue Zoloft 100 mg daily. Continue supportive care. Patient need supervision and care after discharge Assessment & Plan (08/09/2022 6:58 PM STORE ADMINISTRATIVE ASSISTANT): Patient is pleasantly confused. No behaviors. Slums 16/30. Continue Zoloft 100 mg daily. Continue supportive care. Patient need supervision and care after discharge Closed fracture of shaft of left humerus with routine healing 08/07/2022 Assessment & Plan (08/13/2022 6:42 AM STORE ADMINISTRATIVE ASSISTANT): Due to fall. Imaging revealed left humeral shaft fracture, complicated with radial nerve palsy. Orthopedic managed conservatively with brace. SHAMIKA PRADHAN. Pain management with Tylenol 650 Q 6. Patient had follow-up with Dr. Thomas today. Recommended to continue Left arm brace, according to special instructions for placement and cleaning.Pt will be dc today to [facility]. Assessment & Plan (08/09/2022 6:51 PM STORE ADMINISTRATIVE ASSISTANT): Pain overall controlled. Reminded patient that has follow-up with Dr. Thomas 08/11/2022. Daughter to provide transportation. Assessment & Plan (08/07/2022 6:17 AM STORE ADMINISTRATIVE ASSISTANT): Due to fall. Imaging revealed left humeral shaft fracture, complicated with radial nerve palsy. Orthopedic managed conservatively with brace. SHAMIKA PRADHAN. Pain management with Tylenol 650 Q 6. Patient follow-up with Dr. Thomas on 08/11/22 for repeat imaging and treatment plan Paroxysmal A-fib 08/07/2022 Assessment & Plan (08/13/2022 6:43 AM STORE ADMINISTRATIVE ASSISTANT): Patient developed paroxysmal AFib while inpatient, was started on metoprolol 25 mg b.i.d. and Eliquis 5 mg b.i.d., which later placed on hold due to GI Assessment & Plan (08/07/2022 6:18 AM STORE ADMINISTRATIVE ASSISTANT): Patient developed paroxysmal AFib while inpatient, was started on metoprolol 25 mg b.i.d. and Eliquis 5 mg b.i.d., which later placed on hold due to GI Gastrointestinal hemorrhage with melena 08/07/19 Assessment & Plan (08/13/2022 6:46 AM STORE ADMINISTRATIVE ASSISTANT): Patient was started on Eliquis for AFib, followed by acute blood loss anemia. Home med Plavix, Eliquis placed on hold. EGD done showed multiple gastric and duodenal ulcers. Status post blood transfusions. H pylori negative. Denies any melena or GI bleed now. Continue pantoprazole 40 mg b.i.d.. Avoid NSAIDs, AC till follow-up with GI. Assessment & Plan (08/07/2022 6:32 AM STORE ADMINISTRATIVE ASSISTANT): Patient was started on Eliquis for AFib, [...] 08/07/2022 Assessment & Plan (08/13/2022 6:43 AM STORE ADMINISTRATIVE ASSISTANT): 2/2 GIB (gastric, duodenal ulcers). Received blood transfusions. Hold NSAIDs, anticoagulants. CBC check a.m. Assessment & Plan (08/07/2022 6:20 AM STORE ADMINISTRATIVE ASSISTANT): 2/2 GIB (gastric, duodenal ulcers). Received blood transfusions. Hold NSAIDs, anticoagulants. CBC check a.m. Acute kidney injury superimposed on chronic kidn ey disease 08/07/2022 Assessment & Plan (08/13/2022 6:45 AM STORE ADMINISTRATIVE ASSISTANT): Baseline creatinine around 1. Was elevated while inpatient. Will hold chlorthalidone now, till BMP results. If creatinine elevated may consider holding lisinopril as well. Avoid nephrotoxic drugs. Monitor renal function Assessment & Plan (08/07/2022 6:30 AM STORE ADMINISTRATIVE ASSISTANT): Baseline creatinine around 1. Was elevated while [...] 08/27/2021 Assessment & Plan (08/13/2022 6:45 AM STORE ADMINISTRATIVE ASSISTANT): Patient currently asymptomatic. No seizure episode. Continue home med Keppra 750 mg b.i.d.. Will check Keppra level next labs. Assessment & Plan (08/07/2022 6:31 AM STORE ADMINISTRATIVE ASSISTANT): Patient currently asymptomatic. No seizure episode. Continue home med Keppra 750 mg b.i.d.. Will check Keppra level next labs. Depressive disorder 08/27/2021 Assessment & Plan (08/13/2022 6:45 AM STORE ADMINISTRATIVE ASSISTANT): Mood currently stable. Continue home med sertraline 100 mg daily. Assessment & Plan (08/07/2022 6:31 AM STORE ADMINISTRATIVE ASSISTANT): Mood currently stable. Continue home med sertraline [...] 03/14/2019 Assessment & Plan (08/13/2022 6:44 AM STORE ADMINISTRATIVE ASSISTANT): Continue Lipitor 40 mg daily, Zetia Assessment & Plan (08/07/2022 6:32 AM STORE ADMINISTRATIVE ASSISTANT): Continue Lipitor 40 mg daily, Zetia Encounter for screening for cardiovascular disor ders 03/14/2019 Hypomagnesemia 03/14/2019 Palpitations 03/14/2019 Essential hypertension 03/08/2019 Assessment & Plan (08/13/2022 6:44 AM STORE ADMINISTRATIVE ASSISTANT): Blood pressure and heart rate fluctuates. Continue amlodipine 10 mg, lisinopril 40 mg, metoprolol 25 mg b.i.d. added due to AFib while inpatient. Will hold down 25 mg for now due to elevated creatinine last labs. Monitor blood pressure, adjust meds accordingly. Assessment & Plan (08/07/2022 6:22 AM STORE ADMINISTRATIVE ASSISTANT): Blood pressure and heart rate fluctuates. Continue [...] 04/28/2016 Assessment & Plan (08/13/2022 6:44 AM STORE ADMINISTRATIVE ASSISTANT): A1c 6.6 a year ago. Continue Lantus 12 units bedtime, Tradjenta 5 mg, glipizide 5 mg. Will check A1c level next labs. Monitor Accu-Cheks Assessment & Plan (08/07/2022 6:26 AM STORE ADMINISTRATIVE ASSISTANT): A1c 6.6 a year ago. Continue Lantus [...] on file Legal Sex Female 3:49 AM STORE ADMINISTRATIVE ASSISTANT Gender Identity Not on file Sexual Orientation [...] testing HEMOGLOBIN A1C Routine 08/28/2021 4:53 AM STORE ADMINISTRATIVE ASSISTANT OCCULT BLOOD, FECAL (FIT) Routine 03/18/2018 8:45 [...] BLOOD ORDERABLES Final Re sult [facility] [address] [facility] Department [place] [address] * (ABNORMAL) Hemoglobin A1c (08/28/2021 4:53 AM STORE ADMINISTRATIVE ASSISTANT) [facility] Hgb A1C 6.6(H) 4.0 - 5.6 % [facility] Comment:Testing performed by : [address] [address] Estimated Average Glucose 143 mg/dL [facility] Comment: The ADA recommends reporting an estimated Average Glucose (eAG) with all Hemoglobin A1c results using the equation derived from a study of 507 normal and diabetic adults. Minority populations were underrepresented and children were not included. (Diabetes Care 31:1872-1391, 2008). The eAG is not equivalent to a fasting glucose. Testing performed by: [facility], [address] [place] [address]., [id number] Blood 08/28/2021 4:53 AM STORE ADMINISTRATIVE ASSISTANT 08/28/2021 5:00 AM STORE ADMINISTRATIVE ASSISTANT Janet Guan DO LAB BLOOD ORDERABLES Final Re sult [facility] [address] [facility] Department [place] [address] * Occult blood, fecal non neoplasm screening (03/18/2018 8:45 PM CDT) [facility] Stool Occult Blood POSITIVE NEGATIVE 03/18/2018 10:21 PM CDT [facility] HISTORICAL RESULTS 03/18/2018 8:45 PM CDT 03/18/2018 10:08 PM CDT Kassandra Saab NP LAB BODY FLUIDS AND STOOLS ORDER JIM Final Result [facility] HISTORICAL RESULTS * (ABNORMAL) TNI with LIPID PANEL (11/29/2016 3:21 PM CDT) [facility] Troponin I < 0.300 0.000 - 0.300 ng/mL 11/29/2016 3:54 PM CDT [facility] HISTORICAL RESULTS Comment: Reference using GEE Chemiluminescence Negative: Repeat in 4-6 hours as indicated. Triglycerides 124 0 - 199 mg/dL 11/29/2016 3:54 PM CDT [facility] HISTORICAL RESULTS Comment:12 hr pc highly davis mmended for Triglyceride Cholesterol 212(H) 0 - 199 mg/dL 11/29/2016 3:54 PM CDT [facility] HISTORICAL RESULTS Comment: Borderline: 200-239 High Risk: >239 HDL Cholesterol 82(H) 40 - 60 mg/dL 11/29/2016 3:54 PM CDT [facility] HISTORICAL RESULTS Comment: Major Risk < 40 mg/dL Moderate Risk 40-60 mg/dL Negative Risk > 60 mg/dL LDL Cholesterol, Calc 105 0 - 130 mg/dL 11/29/2016 3:54 PM CDT [facility] Comment:High Risk > 159 mg/d L Cholesterol/HDL Ratio 2.6 11/29/2016 3:54 PM T [facility] HISTORICAL RESULTS Comment: Cholesterol / HDL Ratio 3.5:1 or less is desirable. Cholesterol / HDL Ratio greater than 5:1 is considered higher risk for developing heart disease. 11/29/2016 3:21 PM CDT 11/29/2016 3:28 PM CDT Narrative [facility] HISTORICAL RESULTS - 11/29/2016 3:54 PM CDT us Lester Marcelino Mccann MD LAB BLOOD ORDERABLES Final Result [facility] HISTORICAL RESULTS from Last 3 Months or Most Recently Relevant to Health Maintenance Insurance [facility] MEDICARE MEDICARE IDCT IDCT MEDICARE Advance Directives For more information, please contact: [phone] * Full Code (Latest Code Status on File) Date Activated Date Inactivated Comments 11/05/2022 11:01 AM 11/05/2022 5:09 PM Healthcare Agents on File Name Relationship Healthcare Agent Relationsmn p Communication Prakash Olson Friend Second Alternate Health Care Agent Care Teams Food And Beverage Controller Relationship Specialty Start Date End Date Marcelino Gore PA [address] [place] [id number] PCP - General 09/08/19
--- OUTSIDE RECORDS SUMMARY | 2024-10-03 15:47 | XMS_ITS | Clinical Summary ---
Author Organization [facility] [employer] Address [address] [place] [address] Care Team Providers Care Jewelry Dipper Name Role Phone Allie Sinclair PA-C Primary Care Provider [phone] Source Comments [facility] [employer],non-owned Affiliates and Associated Physician Practices is amultiple site organization consisting of ambulatory clinics and hospital sitesin [place], [place], [place] and [place]. This disclosure is being madepursuant to the Care Everywhere program and may not contain all information available regarding this patient. Last updated 18.[facility] [employer] Allergies Active Allergy Reactions Criticality Noted Date Comments Artificial Sweeteners Diarrhea Medium 07/26/2022 Aspartame Diarrhea Medium 07/26/2022 Morphine Other High 09/10/2023 Pt had bad experience: Acute drug intoxication - called EMS, almost had to complete temporary HD - went to [facility] Medications * Be aware that [...] 09/10/2023 midazolam (Nayzilam) 5 MG/0.1ML nasal spray [place] 0.1 mL into the nose as needed for Seizures Lasting longer than 5 minutes. Can administer second dose in other nostril if seizure continues after 10 minutes. 4 Each 5 09/04/2022 Active Additional Information Patient not taking.Reported on 11/07/2022 Cholecalciferol 1.25 MG (82463 UT) cholecalciferol (vitamin D3) 1,250 mcg (50,000 unit) capsule TAKE 1 CAPSULE BY MOUTH EVERY WEEK WITH FOOD Active saline nasal spray ([place]; Baby [place]) 0.65 % nasal spray [place] 1 (one) spray to 2 (two) sprays [...] morning 07/07/2023 Active Blood Glucose Monitoring Suppl (Covercake Verio Flex System) w/Device KIT USE TO CHECK BLOOD SUGAR THREE TIMES DAILY 05/04/2023 Active amLODIPine (Norvasc) 10 MG tablet Take 1 (one) tablet by mouth every morning 07/21/2023 Active fenofibrate (Lofibra) 160 MG tablet TAKE 1 TABLET BY MOUTH EVERY DAY WITH MEALS 08/17/2023 Active Covercake Verio test strip USE TO CHECK BLOOD SUGAR TWICE DAILY 05/05/2023 Active Lancets (IPXITOUCH DELICA PLUS 33G EXTRA FINE LANCET) USE [...] and cleaning.Pt will be dc today to [facility]. 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 Not hard at all 11/29/2022 [facility] [place] [facility] - Occupational [...] place to sleep or slept in a long term (including now)? No 11/29/2022 Sex and Gender Information Value Date Recorded Sex Assigned at Not on file Gender Identity Not on file Sexual Orientation Not on file Last Filed Vital Signs Vital Sign Reading Time Taken Comments Blood Pressure 123/68 09/17/2023 3:50 PM TEST ENGINEER NUCLEAR EQUIPMENT Pulse 68 09/17/2023 3:50 PM TEST ENGINE[employer]UCLE[employer] EQUIPMENT Temperature 36.5 C (97.7 F) 09/17/2023 3:27 PM TEST ENGINE[employer]UCLE[employer] EQUIPMENT Respiratory Rate 13 09/17/2023 3:50 PM TEST ENGINEER [employer]UCLEAR EQUIPMENT Oxygen Saturation 98% 09/17/2023 3:50 PM TEST ENGINEER [employer]UCLE[employer] EQUIPMENT Inhaled Oxygen Concentration 25% 07/23/2022 1 0:00 AM TEST ENGINEER [employer]UCLE[employer] EQUIPMENT Weight 90.9 kg (200 lb 6.4 oz) 09/17/2023 12:34 PM TEST [employer]INE[employer]UCLE[employer] EQUIPMENT Height 170.2 cm (5' 7 ) 09/17/2023 12:34 PM TEST [employer]INE[employer]UCLE[employer] EQUIPMENT Body Mass Index 31.39 09/17/2023 12:34 PM TEST ENGINEER [employer]UCLE[employer] EQUIPMENT Plan of Treatment Health Maintenance Due Date [...] this topic Medical Devices Implanted Type Area Radiator Specialist Device Identifier Shelf Expiration Date Model / Serial / Lot Parth Bone Void 5cc Dbm Allosync Ptty Implanted:Qty: 2 on 11/25/2022 by Robbie Mccann MD at [facility] Left: Humerus [employer] 04/23/2026 ABS-2011-11 / / Screw 3.5mm 32mm T15 Slf-Tap Lck Tpr Implanted:Qty: 1 on 11/25/2022 by Robbie Mccann MD at [facility] Left: Humerus [employer] [id number] / / Screw 3.5mm 36mm T15 Slf-Tap Lck Tpr Implanted:Qty: 1 on 11/25/2022 by Robbie Mccann MD at [facility] Left: Humerus [employer] [id number] / / Screw 3.5mm 38mm T15 Slf-Tap Lck Tpr Implanted:Qty: 1 on 11/25/2022 by Robbie Mccann MD at [facility] Left: Humerus [employer] [id number] / / Screw 3.5mm 42mm T15 Lck Slf-Tap Tip Tpr Implanted:Qty: 1 on 11/25/2022 by Robbie Mccann MD at [facility] Left: Humerus [employer] [id number] / / Screw 3.5mm 46mm T15 Slf-Tap Lck Tpr Implanted:Qty: 1 on 11/25/2022 by Robbie Mccann MD at [facility] Left: Humerus [employer] [id number] / / Screw 3.5mm 48mm T15 Slf-Tap Lck Tpr Implanted:Qty: 1 on 11/25/2022 by Robbie Mccann MD at [facility] Left: Humerus [employer] [id number] / / Screw 3.5mm 46mm T15 Lck Mldir Nonster Implanted:Qty: 1 on 11/25/2022 by Robbie Mccann MD at [facility] Left: Humerus [employer] [id number] / / Graft Bone Infs Rhbmp-2 Bvn Clgn Lg 8ml Implanted:Qty: 1 on 11/25/2022 by Robbie Mccann MD at [facility] Left: Humerus [employer] 07/20/2024 [id number] / / [id number] Graft Bone Almtr Dbm Canc 5ml Algrf Ptty - [id number] Implanted:Qty: 1 on 11/25/2022 by Robbie Mcacnn MD at [facility] Left: Humerus [employer] 09/22/2023 [id number] / [id number] / Alps Proximal Humerus Low Plate Left 11 H, 190mm Implanted:Qty: 1 on 11/25/2022 by Robbie Mccann MD at [facility] Left: Humerus [id number] / / Screw 3.5mm 20mm T15 Lopro Nonlock Implanted:Qty: 3 on 11/25/2022 by Robbie Mccann MD at [facility] Left: Humerus [employer] [id number] / / Screw 3.5mm 22mm T15 Nonlock Lopro Implanted:Qty: 1 on 11/25/2022 by Robbie Mccann MD at [facility] Left: Humerus [employer] [id number] / / Screw 3.5mm 24mm T15 Nonlock Lopro Implanted:Qty: 1 on 11/25/2022 by Robbie Mccann MD at [facility] Left: Humerus [employer] [id number] / / Screw 3.5mm 32mm T15 Nonlock Lopro Implanted:Qty: 1 on 11/25/2022 by Robbie Mccann MD at [facility] Left: Humerus [employer] [id number] / / Explanted Type Area Radiator Specialist Device Identifier Shelf Expiration Date Model / Serial / Lot Screw 3.5mm 36mm T15 Slf-Tap Lck Tpr Explanted:Qty: 1 on 11/25/2022 by Robbie Mccann MD at [facility] Left: Humerus [employer] [id number] / / Screw 3.5mm 48mm T15 Slf-Tap Lck Tpr Explanted:Qty: 2 on 11/25/2022 by Robbie Mccann MD at [facility] Left: Humerus [employer] [id number] / / Wire K 2mm 152mm Top Tray Ss Fx Explanted:Qty: 4 on 11/25/2022 by Robbie Mccann MD at [facility] Left: Humerus [employer] [id number] / / Screw 3.5mm 24mm T15 Nonlock Lopro Explanted:Qty: 1 on 11/25/2022 by Robbie Mccann MD at [facility] Left: Humerus [employer] [id number] / / Procedures Procedure Name Priority Date/Time Associated Diagnosis Comments RENAL FUNCTION PANEL AM Draw 12/04/2022 2:46 AM CDT HEMOGLOBIN A1C Routine 11/26/2022 1:18 AM CDT Other fracture of shaft of left humerus, subsequent encounter for fracture with malunion HEPATITIS SCREEN ACUTE AM Draw 07/24/2022 4:12 AM TEST ENGINEER NUCLEAR EQUIPMENT from Last 3 Months or Most Recently Relevant to Health Maintenance Results * (ABNORMAL) RENAL FUNCTION PANEL (12/04/2022 2:46 AM CDT) BUN 7 7 - 26 mg/dL 12/04/2022 4:03 AM [facility] Creatinine 0.98(H) 0.56 - 0.96 mg/dL 12/04/2022 4:03 AM [facility] Sodium 149(H) 136 - 145 mmol/L 12/04/2022 4:03 AM [facility] Potassium 4.4 3.5 - 4.5 mmol/L 12/04/2022 4:03 AM [facility] Chloride 112(H) 98 - 107 mmol/L 12/04/2022 4:03 AM [facility] CO2 18(L) 22 - 29 mmol/L 12/04/2022 4:03 AM [facility] Glucose 155(H) 70 - 115 mg/dL 12/04/2022 4:03 AM [facility] Albumin 2.6(L) 3.4 - 5.0 g/dL 12/04/2022 4:03 AM [facility] Calcium 9.0 8.4 - 10.2 mg/dL 12/04/2022 4:03 AM [facility] Phosphorus 3.7 2.9 - 5.1 mg/dL 12/04/2022 4:03 AM [facility] Anion Gap 23(H) 8 - 18 12/04/2022 4:03 AM [facility] BUN/Creatinine Ratio 7 7 - 23 12/04/2022 4:03 AM CDT [facility] Osmolality Calculated 309(H) 270 - 300 mOsm/kg 12/04/2022 4:03 AM T [facility] eGFR by CKD-EPI 63(L) >=90 mL/min/1.7 3 m2 12/04/2022 4:03 AM T [facility] Blood BLOOD SPECIMEN / Unknown Lab Venipuncture / Unknown 12/04/2022 2:46 AM CDT 12/04/2022 3:24 AM CDT Blaine Campo MD LAB - CHEMISTRY ALEXEI FREEMAN Performing Organization Address City/[facility]/ZIP Co de Phone Number [address] [address], [facility] [phone] * (ABNORMAL) HEMOGLOBIN A1C (11/26/2022 1:18 AM CDT) Hemoglobin A1c 9.1(H) <=5.6 % 11/26/2022 1:26 PM [facility] Estimated Average Glucose 214 mg/dL 11/26/2022 1:26 PM [facility] Comment: HbA1c Interpretation: Normal : < 5.7% Pre-diabetes: 5.7-6.4% Diabetes: Equal to or greater than 6.5% Test results diagnostic of diabetes should be repeated for confirmation. Treatment target values recommended by ADA and other clinical organizations should be used to evaluate metabolic control in patients. Reference: [place] Diabetes Association, Standards of Care in Diabetes [...] Mccann MD LAB - CHEMISTRY SOCORRO CASTILLO [facility] [address] [place] [id number], [facility] [phone] * HEPATITIS SCREEN ACUTE (07/24/2022 4:12 AM TEST ENGINEER NUCLEAR EQUIPMENT) Hepatitis A Virus Antibody IgM Non-react bartolome Non-reac tive 07/24/2022 5:11 AM TEST ENGINEER NUCLEAR EQUIPMENT [facility] Hepatitis B Virus Surface Antigen Non-react bartolome Non-reac tive 07/24/2022 5:11 AM TEST ENGINEER NUCLEAR EQUIPMENT [facility] Hepatitis B Core Virus Antibody IgM Non-react bartolome Non-reac tive 07/24/2022 5:11 AM TEST ENGINEER NUCLEAR EQUIPMENT [facility] Hepatitis C Antibody Non-react bartolome Non-reac [...] Unknown Venipuncture / Unknown 07/24/2022 4:12 AM TEST ENGINEER NUCLEAR EQUIPMENT 07/24/2022 4:37 AM TEST ENGINEER NUCLEAR EQUIPMENT Sarabjit Gutierrez MD LAB - CHEMISTRY ORDERABLES [facility] [address] [place] [address], [facility] [phone] from Last 3 Months or Most Recently Relevant to Health Maintenance Advance Directives Documents on File Type Date Recorded 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 Expl 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 Adv Directive/Living Will/POA 08/01/2022 11:56 AM * Full Code (Latest Code Status on File) Date Activated Date Inactivated Comments 11/28/2022 10:29 PM 12/04/2022 11:55 AM * Full Code Date Activated Date Inactivated Comments 11/25/2022 12:22 PM 11/27/2022 1:35 PM * Full Code Date Activated Date Inactivated Comments 07/07/2022 9:28 PM 08/05/2022 4:23 PM Healthcare Agents on File Name Relationship [facility] Claudia Mohan Daughter Health Care Agent Care Teams Jewelry Dipper Relationship Specialty Start Date End Date Allie Sinclair PA-C [address] [place] [address] PCP - General 07/08/22
--- OUTSIDE RECORDS SUMMARY | 2024-10-03 15:47 | XMS_ITS | Patient Health Summary ---
Author Organization [facility] Address [address] [place] [address] Care Team Providers Care Clerical Coordinator Name Role Phone Allie Sinclair PA-C Primary Care Provider [phone] Note from [facility],non-owned Affiliates and Associated Physician Practices is amultiple site organization consisting of ambulatory clinics and hospital sitesin [place], [place], [place] and [place]. This disclosure is being madepursuant to the Care Everywhere program and may not contain all information available regarding this patient. Last updated 18.[facility] [place] Allergies * Artificial Sweeteners(Diarrhea) -Medium Criticality * [...] midazolam (Nayzilam) 5 MG/0.1ML nasal spray(Started 09/04/2022) [place] 0.1 mL into the nose as needed for Seizures Lasting longer than 5 minutes. Can administer second dose in other nostril if seizure continues after 10 minutes. 5 refills by 03/03/2023 * Cholecalciferol 1.25 MG (26406 UT) cholecalciferol (vitamin D3) 1,250 mcg (50,000 unit) capsule TAKE 1 CAPSULE BY MOUTH EVERY WEEK WITH FOOD * saline nasal spray ([place]; [place]) 0.65 % nasal spray(Started 12/04/2022) [place] 1 (one) spray to 2 (two) sprays into each nostril every 2 hours as needed for Dry Nose * polyethylene glycol 3350 (Miralax) 17 g packet(Started 12/04/2022) Take 17 (seventeen) g by mouth once daily as needed for Constipation * Farxiga 10 MG tablet(Started 07/07/2023) Take 1 (one) tablet by mouth every morning * Blood Glucose Monitoring Suppl (Compliance 11 Verio Flex System) w/Device KIT (Started 05/04/2023) USE TO CHECK BLOOD SUGAR THREE TIMES DAILY * amLODIPine (Norvasc) 10 MG tablet(Started 07/21/2023) Take 1 (one) tablet by mouth every morning * fenofibrate (Lofibra) 160 MG tablet(Started 08/17/2023) TAKE 1 TABLET BY MOUTH EVERY DAY WITH MEALS * Lvmamauch Verio test strip(Started 05/05/2023) USE TO CHECK BLOOD SUGAR TWICE DAILY * Lancets (WordStreamTOUCH DELICA PLUS 33G EXTRA FINE LANCET)(Started 05/13/2023) [...] and heating? Not hard at all 11/29/2022 [facility] Occupat ional Health - Occupational Stress [...] place to sleep or slept in a detention (including now)? No 11/29/2022 Sex and Gender Information Value Date Recorded Sex Assigned at Not on file Gender Identity Not on file Sexual Orientation Not on file Last Filed Vital Signs Vital Sign Reading Time Taken Comments Blood Pressure 123/68 09/17/2023 3:50 PM [employer] Pulse 68 09/17/2023 3:50 PM [employer] Temperature 36.5 C (97.7 F) 09/17/2023 3:27 PM [employer] Respiratory Rate 13 09/17/2023 3:50 PM [employer] Oxygen Saturation 98% 09/17/2023 3:50 PM [employer] Inhaled Oxygen Concentration 25% 07/23/2022 1 0:00 AM [employer] Weight 90.9 kg (200 lb 6.4 oz) 09/17/2023 12:34 PM [employer] Height 170.2 cm (5' 7 ) 09/17/2023 12:34 PM [employer] Body Mass Index 31.39 09/17/2023 12:34 PM [employer] Medical Devices Implanted Type Area Food Selector Device Identifier Shelf Expiration Date Model / Serial / Lot Parth Bone Void 5cc Dbm Allosync Ptty Implanted:Qty: 2 on 11/25/2022 by Robbie Mccann MD at [facility] Left: Humerus [employer] 04/23/2026-2011-11 / / Screw 3.5mm 32mm T15 Slf-Tap Lck Tpr Implanted:Qty: 1 on 11/25/2022 by Robbie Mccann MD at [facility] Left: Humerus [employer] [id number] / / Screw 3.5mm 36mm T15 Slf-Tap Lck Tpr Implanted:Qty: 1 on 11/25/2022 by Robbie Mccann MD at [facility] Left: Humerus [employer] [id number] / / Screw 3.5mm 38mm T15 Slf-Tap Lck Tpr Implanted:Qty: 1 on 11/25/2022 by Robbie Mccann MD at [facility] Left: Humerus [employer] [id number] / / Screw 3.5mm 42mm T15 Lck Slf-Tap Tip Tpr Implanted:Qty: 1 on 11/25/2022 by Robbie Mccann MD at [facility] Left: Humerus [employer] [id number] / / Screw 3.5mm 46mm T15 Slf-Tap Lck Tpr Implanted:Qty: 1 on 11/25/2022 by Robbie Mccann MD at [facility] Left: Humerus [employer] [id number] / / Screw 3.5mm 48mm T15 Slf-Tap Lck Tpr Implanted:Qty: 1 on 11/25/2022 by Robbie Mccann MD at [facility] Left: Humerus [employer] [id number] / / Screw 3.5mm 46mm T15 Lck Mldir Nonster Implanted:Qty: 1 on 11/25/2022 by Robbie Mccann MD at [facility] Left: Humerus [employer] [id number] / / Graft Bone Infs Rhbmp-2 Bvn Clgn Lg 8ml Implanted:Qty: 1 on 11/25/2022 by Robbie Mccann MD at [facility] Left: Humerus [employer] 07/20/2024 [id number] / / [id number] Graft Bone Almtr Dbm Canc 5ml Algrf Ptty - [id number] Implanted:Qty: 1 on 11/25/2022 by Robbie Mccann MD at [facility] Left: Humerus [employer] 09/22/2023 [id number] / [id number] / Alps Proximal Humerus Low Plate Left 11 H, 190mm Implanted:Qty: 1 on 11/25/2022 by Robbie Mccann MD at [facility] Left: Humerus [id number] / / Screw 3.5mm 20mm T15 Lopro Nonlock Implanted:Qty: 3 on 11/25/2022 by Robbie Mccann MD at [facility] Left: Humerus [employer] [id number] / / Screw 3.5mm 22mm T15 Nonlock Lopro Implanted:Qty: 1 on 11/25/2022 by Robbie Mccann MD at [facility] Left: Humerus [employer] [id number] / / Screw 3.5mm 24mm T15 Nonlock Lopro Implanted:Qty: 1 on 11/25/2022 by Robbie Mccann MD at [facility] Left: Humerus [employer] [id number] / / Screw 3.5mm 32mm T15 Nonlock Lopro Implanted:Qty: 1 on 11/25/2022 by Robbie Mccann MD at [facility] Left: Humerus [employer] [id number] / / Explanted Type Area Food Selector Device Identifier Shelf Expiration Date Model / Serial / Lot Screw 3.5mm 36mm T15 Slf-Tap Lck Tpr Explanted:Qty: 1 on 11/25/2022 by Robbie Mccann MD at [facility] Left: Humerus [employer] [id number] / / Screw 3.5mm 48mm T15 Slf-Tap Lck Tpr Explanted:Qty: 2 on 11/25/2022 by Robbie Mccann MD at [facility] Left: Humerus [employer] [id number] / / Wire K 2mm 152mm Top Tray Ss Fx Explanted:Qty: 4 on 11/25/2022 by Robbie Mccann MD at [facility] Left: Humerus [employer] [id number] / / Screw 3.5mm 24mm T15 Nonlock Lopro Explanted:Qty: 1 on 11/25/2022 by Robbie Mccann MD at [facility] Left: Humerus [employer] [id number] / / Procedures * IA TREAT THUMB FX/DISLOC,MANIP(Performed 09/17/2023) Performed for Flexion [...] TRANSFERRIN PANEL(Performed 07/24/2022) * GGT(Performed 07/24/2022) * NVDSR-2-LELCYBORAGC BLOOD(Performed 07/24/2022) * SMOOTH MUSCLE ANTIBODY W [...] GASES ART + COOX PANEL(Performed 07/21/2022) * IA ED EGD FLEX TRANSORAL DX(Performed 07/21/2022) Performed [...] - POINT OF CARE (09/17/2023 12:54 PM [employer]) Only the most recent of178 resultswithin the time period is included. Glucose WB/POC 139(H) 70 - 115 mg/dL 09/22/2023 7:43 AM [employer]AUT[employer] [facility] Specimen Type Venous 09/22/2023 7:43 AM [employer]AUT[employer] [facility] Blood BLOOD SPECIMEN / Unknown 09/17/2023 12:54 PM [employer] 09/22/2023 7:43 AM [employer] Gee Canela MD LAB - POINT OF CARE ORDERABLES [address] [address], [facility] [phone] * XR HUMERUS LEFT 2VW OR MORE (07/15/2023 10:39 AM [employer]) Only the most recent of18 resultswithin the time period is included. Anatomical Region Laterality Modality Upper Extremity Radiographic Sade ging 07/15/2023 10:5 1 AM [employer] Impressions 07/15/2023 11:10 AM [employer] IMPRESSION: Unchanged osseous alignment. Report dictated by Mary Olmedo MD (resident care provider). I, Guille Whitlock MD have personally reviewed and interpreted this examination/study. > Interpreting Provider: Guille Whitlock MD on 07/15/2023 11:10 AM Narrative 07/15/2023 11:10 AM [employer] PROCEDURE: XR HUMERUS LEFT 2VW OR MORE, DATE/TIME OF EXAM: 07/15/2023 10:40 AM, LOCATION [facility] INDICATION: S42.362K: Closed displaced segmental fracture of [...] DATE/TIME OF EXAM: 07/15/2023 10:40 AM, LOCATION [facility] INDICATION: S42.362K: Closed displaced segmental fracture of [...] alignment. Report dictated by Mary Olmedo MD (resident care provider). I, Guille Whitlock MD have personally reviewed and interpreted this examination/study. > Interpreting Provider: Guille Whitlock MD on 07/15/2023 11:10 AM Robbie Mccann MD DIAGNOSTIC IMAGING O RDERABLES * (ABNORMAL) CBC W/O DIFFERENTIAL (12/04/2022 2:46 AM CDT) Only the most recent of45 resultswithin the time period is included. WBC 6.8 3.5 - 10.5 10 3/uL 12/04/2022 3:44 AM CDT [facility] RBC 3.20(L) 3.80 - 5.20 10 6/uL 12/04/2022 3:44 AM CDT [facility] Hemoglobin 9.0(L) 12.0 - 15.6 g/dL 12/04/2022 3:44 AM [facility] Hematocrit 29.5(L) 35.0 - 45.0 % 12/04/2022 3:44 AM [facility] MCV 92.2 80.7 - 98.3 fL 12/04/2022 3:44 AM [facility] MCH 28.1 26.7 - 34.0 pg 12/04/2022 3:44 AM [facility] MCHC 30.5(L) 30.8 - 35.9 g/dL 12/04/2022 3:44 AM [facility] RDW-SD 49.8 36.0 - 50.0 fL 12/04/2022 3:44 AM [facility] RDW-CV 14.8 11.2 - 14.8 % 12/04/2022 3:44 AM [facility] Platelet Count 176 150 - 400 10 3/uL 12/04/2022 3:44 AM [facility] MPV 12.2 9.4 - 12.9 fL 12/04/2022 3:44 AM [facility] nRBC Absolute 0.00 0 10 3/uL 12/04/2022 3:44 AM [facility] nRBC Auto 0.0 0 /100 WBC 12/04/2022 3:44 AM [facility] Blood BLOOD SPECIMEN / Unknown Lab Venipuncture / Unknown 12/04/2022 2:46 AM CDT 12/04/2022 3:20 AM CDT Blaine Campo MD LAB - HEMATOLOGY OR DERABLES [facility] [address] [place] [address], [facility] [phone] * (ABNORMAL) RENAL FUNCTION PANEL (12/04/2022 2:46 AM CDT) Only the most recent of30 resultswithin the time period is included. BUN 7 7 - 26 mg/dL 12/04/2022 4:03 AM [facility] Creatinine 0.98(H) 0.56 - 0.96 mg/dL 12/04/2022 4:03 AM [facility] Sodium 149(H) 136 - 145 mmol/L 12/04/2022 4:03 AM [facility] Potassium 4.4 3.5 - 4.5 mmol/L 12/04/2022 4:03 AM [facility] Chloride 112(H) 98 - 107 mmol/L 12/04/2022 4:03 AM [facility] CO2 18(L) 22 - 29 mmol/L 12/04/2022 4:03 AM [facility] Glucose 155(H) 70 - 115 mg/dL 12/04/2022 4:03 AM [facility] Albumin 2.6(L) 3.4 - 5.0 g/dL 12/04/2022 4:03 AM [facility] Calcium 9.0 8.4 - 10.2 mg/dL 12/04/2022 4:03 AM [facility] Phosphorus 3.7 2.9 - 5.1 mg/dL 12/04/2022 4:03 AM [facility] Anion Gap 23(H) 8 - 18 12/04/2022 4:03 AM [facility] BUN/Creatinine Ratio 7 7 - 23 12/04/2022 4:03 AM [facility] Osmolality Calculated 309(H) 270 - 300 mOsm/kg 12/04/2022 4:03 AM [facility] eGFR by CKD-EPI 63(L) >=90 mL/min/1.7 3 m2 12/04/2022 4:03 AM [facility] Blood BLOOD SPECIMEN / Unknown Lab Venipuncture / Unknown 12/04/2022 2:46 AM CDT 12/04/2022 3:24 AM CDT Blaine Campo MD LAB - CHEMISTRY ORD ERABLES [facility] [address] [place] [address], [facility] [phone] * MAGNESIUM BLOOD (12/04/2022 2:46 AM CDT) Only the most recent of32 resultswithin the time period is included. Magnesium 1.8 1.6 - 2.6 mg/dL 12/04/2022 4:03 AM CDT [facility] Blood BLOOD SPECIMEN / Unknown Lab Venipuncture / Unknown 12/04/2022 2:46 AM CDT 12/04/2022 3:24 AM CDT Blaine Campo MD LAB - CHEMISTRY ORD ERABLES Performing Organization Address City/[facility]/ZIP Co de Phone Number [facility] [address] [place] [address], [facility] [phone] * CULTURE URINE (12/02/2022 12:59 AM CDT) Only the most recent of2 resultswithin the time period is included. [facility] Culture Urine <10,000 CFU/mL urogenital isreal [place] 12/03/2022 7:15 AM CDT [facility] MICROBIOLOGY Urine URINE SPECIMEN OBTAINED BY CLEAN CATCH PROCEDURE / Unknown Collection / Unknown 12/02/2022 12:59 AM CDT 12/02/2022 1:04 AM CDT Blaine Campo MD LAB - MICROBIOLOGY ORDERABLES Performing Organization Address City/[facility]/ZIP Co de Phone Number [facility] MICROBIOLOGY [address] [place] [address], [facility] [phone] * (ABNORMAL) URINALYSIS W/MICROSCOPIC NO CULTURE (11/28/2022 11:18 PM CDT) Only the most recent of2 resultswithin the time period is included. Color UA Yellow Straw, Yellow 11/28/2022 11:50 PM CDT [facility] Clarity UA Slt Cloudy(A) Clear 11/28/2022 11:50 PM CDT [facility] Specific [place] UA 1.012 1.005 - 1.030 11/28/2022 11:50 PM CDT [facility] pH UA 5.0 5.0 - 8.0 pH 11/28/2022 11:50 PM CDT [facility] Protein UA Negative Negative 11/28[facility]2022 11:[facility] Glucose UA Negative Negative 11/28/2022 11:50 PM T [facility] Ketone UA Negative Negative 11/28/2022 11:50 PM [facility] Bilirubin UA Negative Negative 11/28/2022 11:50 PM [facility] Blood UA Negative Negative 11/28/2022 11:50 PM [facility] Nitrite UA Negative Negative 11/28/2022 11:50 PM [facility] Leukocyte Esterase 3+(A) Negative 11/28/2022 11:50 PM [facility] Urobilinogen UA Negative Negative mg/dL 11/28/2022 11:50 PM [facility] RBC UA None Seen None Seen, 0-2, 3-5 /HPF 11/28/2022 11:50 PM [facility] WBC UA 11-20(A) None Seen, 0-5 /HPF 11/28/2022 11:50 PM [facility] Bacteria UA 1+(A) None /HPF 11/28/2022 11:50 PM [facility] Squamous Epithelial Cells UA 0-2 None Seen, 0-2, 3-5 /HPF 11/28/2022 11:50 PM [facility] Mucus UA 1+ /LPF 11/28/2022 11:50 PM [facility] Hyaline Casts UA 0-2 None Seen, 0-2 /LPF 11/28/2022 11:50 PM [facility] Urine URINE SPECIMEN OBTAINED BY CLEAN CATCH PROCEDURE / Unknown Collection / Unknown 11/28/2022 11:18 PM CDT 11/28/2022 11:23 PM CDT [facility] - 11/28/2022 11:50 PM CDT Cleve Fisher MD LAB - URINALYSIS ORDERABLES [facility] [address] [place] [address], [facility] [phone] * EOSINOPHIL URINE SMEAR (11/28/2022 11:18 PM CDT) Eosin Stain Urine None None 11/30/2022 5:15 PM CDT [facility] Urine URINE SPECIMEN OBTAINED BY CLEAN CATCH PROCEDURE / Unknown Collection / Unknown 11/28/2022 11:18 PM CDT 11/28/2022 11:23 PM CDT Cleve Fisher MD LAB - URINE CHEM ISTRY ORDERABLES [address] [address], [place] [phone] * PROTEIN URINE RANDOM QUANTITATIVE (11/28/2022 11:18 PM CDT) Protein Urine 24 Not Established mg/dL 11/28/2022 11:54 PM CDT [facility] Urine URINE SPECIMEN OBTAINED BY CLEAN CATCH PROCEDURE / Unknown Collection / Unknown 11/28/2022 11:18 PM CDT 11/28/2022 11:23 PM CDT Cleve Fisher MD LAB - URINE CHEM ISTRY ORDERABLES Performing Organization Address [facility]/ZIP Co de Phone Number [address] [address], [place] [phone] * SODIUM URINE RANDOM (11/28/2022 11:18 PM CDT) Only the most recent of2 resultswithin the time period is included. Sodium Urine 48 Not Established mmol/L 11/28/2022 11:54 PM CDT [facility] Urine URINE SPECIMEN OBTAINED BY CLEAN CATCH PROCEDURE / Unknown Collection / Unknown 11/28/2022 11:18 PM CDT 11/28/2022 11:23 PM CDT Cleve Fisher MD LAB - URINE CHEM ISTRY ORDERABLES [address] [address], [place] [phone] * UREA NITROGEN URINE RANDOM (11/28/2022 11:18 PM CDT) Only the most recent of2 resultswithin the time period is included. Urea Nitrogen Random Urine 634 Not Established mg/dL 11/28/2022 11:54 PM CDT [facility] Urine URINE SPECIMEN OBTAINED BY CLEAN CATCH PROCEDURE / Unknown Collection / Unknown 11/28/2022 11:18 PM CDT 11/28/2022 11:23 PM CDT Cleve Fisher MD LAB - URINE CHEM ISTRY ORDERABLES Performing Organization Address City/[facility]/ZIP Co de Phone Number [address] [address], [place] [phone] * CREATININE URINE RANDOM (11/28/2022 11:18 PM CDT) Only the most recent of2 resultswithin the time period is included. Creatinine Urine 97 Not Established mg/dL 11/28/2022 11:54 PM CDT [facility] Urine URINE SPECIMEN OBTAINED BY CLEAN CATCH PROCEDURE / Unknown Collection / Unknown 11/28/2022 11:18 PM CDT 11/28/2022 11:23 PM CDT Cleve Fisher MD LAB - URINE CHEM ISTRY ORDERABLES Performing Organization Address City/[facility]/ZIP Co de Phone Number [address] [address], [place] [phone] * CT HEAD WO CONTRAST (11/28/2022 8:00 PM CDT) Anatomical Region Laterality Modality Head Computed Tomogra phy 11/28/2022 8:43 PM CDT Impressions 11/28/2022 11:33 PM CDT IMPRESSION: 1.No acute intracranial process. > Dictated by Noah Boyce MD (vice president digital strategist) I, Jaime Finley MD have personally reviewed and interpreted this examination/study. > Interpreting Provider: Jaime Finley MD on 11/28/2022 11:33 PM Narrative 11/28/2022 11:33 PM CDT PROCEDURE: CT HEAD WO CONTRAST, DATE/TIME OF EXAM: 11/28/2022 8:01 PM, LOCATION [facility] INDICATION: R41.82: Altered mental status, unspecified altered [...] DATE/TIME OF EXAM: 11/28/2022 8:01 PM, LOCATION [facility] INDICATION: R41.82: Altered mental status, unspecified altered [...] process. > Dictated by Noah Boyce MD (vice president digital strategist) Jaime Graham MD have personally reviewed and interpreted this examination/study. > Interpreting Provider: Jaime Finley MD on 11/28/2022 11:33 PM [address]ano MD CT ORDERABLES * TROPONIN-I HIGH SENSITIVE REFLEX 1HOUR (11/28/2022 7:48 PM CDT) Troponin I High Sensitive 8 <=14 ng/L 11/28/2022 8:25 PM CDT [facility] Delta Troponin I HS <0 <6 ng/L 11/28/2022 8:25 PM CDT [facility] Blood BLOOD SPECIMEN / Unknown Venipuncture / Unknown 11/28/2022 7:48 PM CDT 11/28/2022 7:54 PM CDT Ben Romano MD LAB - CHEMISTRY [facility] Organization Address City/State/ZIP Co de Phone Number [address] [address] [phone] * XR CHEST 1VW PORTABLE (11/28/2022 7:00 PM CDT) Only the most recent of4 resultswithin the time period is included. Anatomical Region Laterality Modality Chest Radiographic Sade ging 11/28/2022 8:14 PM CDT Impressions 11/29/2022 9:01 AM CDT IMPRESSION: Hypoinflated lungs without identified focal consolidation. Report dictated by Phani Hughes MD (resident care provider). I, Trell Dean have personally reviewed and [...] consolidation. Report dictated by Phani Hughes MD (resident care provider). I, Trell Dean have personally reviewed and interpreted this examination/study. > Interpreting Provider: Trell Dean on 11/29/2022 9:01 AM Ben Romano MD DIAGNOSTIC IMAGING O RDERABLES * PT-INR [facility] (11/28/2022 6:21 PM CDT) Only the most recent of2 resultswithin the time period is included. PT 12.5 12.1 - 14.8 Seconds 11/28/2022 6:51 PM CDT [facility] INR 0.9 See Comment 11/28/2022 6:51 PM CDT [facility] Comment:The suggested therap eutic range for standard coumadin (warfarin) therapy is an INR of 2.0-3.0. For high-risk patients (Mechanical Mitral Valve Prosthesis, etc.), the suggested prophylactic therapeutic range is an INR of 2.5-3.5. Blood BLOOD SPECIMEN / Unknown Venipuncture / Unknown 11/28/2022 6:21 PM CDT 11/28/2022 6:29 PM CDT Ben Romano MD LAB - COAGULATION OR DERABLES Performing Organization Address City/[facility]/ZIP Co de Phone Number [address] [address], [place] [phone] * TROPONIN-I HIGH SENSITIVE BASELINE + 1HR (11/28/2022 6:21 PM CDT) [facility] Troponin I High Sensitive 9 <=14 ng/L 11/28/2022 7:02 PM CDT [facility] Blood BLOOD SPECIMEN / Unknown Venipuncture / Unknown 11/28/2022 6:21 PM CDT 11/28/2022 6:30 PM CDT Ben Romano MD LAB - CHEMISTRY ORDE RABLES Performing Organization Address [facility]/ZIP Co de Phone Number [address] [address], [place] [phone] * (ABNORMAL) CBC W AUTO DIFFERENTIAL (11/28/2022 6:21 PM CDT) Only the most recent of3 resultswithin the time period is included. [facility] WBC 13.0(H) 3.5 - 10.5 10 3/uL 11/28/2022 6:52 PM [facility] RBC 3.71(L) 3.80 - 5.20 10 6/uL 11/28/2022 6:52 PM [facility] Hemoglobin 10.4(L) 12.0 - 15.6 g/dL 11/28/2022 6:52 PM T [facility] Hematocrit 34.6(L) 35.0 - 45.0 % 11/28/2022 6:52 PM [facility] MCV 93.3 80.7 - 98.3 fL 11/28/2022 6:52 PM [facility] MCH 28.0 26.7 - 34.0 pg 11/28/2022 6:52 PM T [facility] MCHC 30.1(L) 30.8 - 35.9 g/dL 11/28/2022 6:52 PM [facility] RDW-SD 51.1(H) 36.0 - 50.0 fL 11/28/2022 6:52 PM [facility] RDW-CV 14.9(H) 11.2 - 14.8 % 11/28/2022 6:52 PM [facility] Platelet Count 216 150 - 400 10 3/uL 11/28/2022 6:52 PM [facility] MPV 12.0 9.4 - 12.9 fL 11/28/2022 6:52 PM [facility] nRBC Absolute 0.00 0 10 3/uL 11/28/2022 6:52 PM [facility] nRBC Auto 0.0 0 /100 WBC 11/28/2022 6:52 PM [facility] Neutrophils % 73.9(H) 35.0 - 70.0 % 11/28/2022 6:52 PM [facility] Lymphocytes % 14.3(L) 20.0 - 43.0 % 11/28/2022 6:52 PM [facility] Monocytes % 9.0 5.0 - 13.0 % 11/28/2022 6:52 PM [facility] Eosinophils % 1.5 0.0 - 6.0 % 11/28/2022 6:52 PM [facility] Basophil % 0.6 0.0 - 2.0 % 11/28/2022 6:52 PM [facility] Neutrophils Absolute 9.56(H) 1.60 - 7.00 10 3/uL 11/28/2022 6:52 PM [facility] Lymphocyte Absolute 1.85 1.10 - 3.90 10 3/uL 11/28/2022 6:52 PM [facility] Monocytes Absolute 1.17(H) 0.26 - 1.07 10 3/uL 11/28/2022 6:52 PM [facility] Eosinophils Absolute 0.20 0.00 - 0.47 10 3/uL 11/28/2022 6:52 PM [facility] Basophils Absolute 0.08 0.00 - 0.08 10 3/uL 11/28/2022 6:52 PM [facility] Immature Granulocytes % 0.7 0.0 - 1.0 % 11/28/2022 6:52 PM [facility] Immature Granulocytes Absolute 0.09 11/28/2022 6:52 PM [facility] Blood BLOOD SPECIMEN / Unknown Venipuncture / Unknown 11/28/2022 6:21 PM CDT 11/28/2022 6:29 PM CDT [facility] Romano MD LAB - HEMATOLOGY ORD ERABLES [facility] [address] [place] [address], [facility] [phone] * (ABNORMAL) COMPREHENSIVE METABOLIC PANEL (11/28/2022 6:21 PM CDT) Only the most recent of3 resultswithin the time period is included. BUN 30(H) 7 - 26 mg/dL 11/28/2022 6:56 PM [facility] Creatinine 1.45(H) 0.56 - 0.96 mg/dL 11/28/2022 6:56 PM [facility] Sodium 141 136 - 145 mmol/L 11/28/2022 6:56 PM [facility] Potassium 4.4 3.5 - 4.5 mmol/L 11/28/2022 6:56 PM [facility] Chloride 113(H) 98 - 107 mmol/L 11/28/2022 6:56 PM [facility] CO2 20(L) 22 - 29 mmol/L 11/28/2022 6:56 PM [facility] Glucose 118(H) 70 - 115 mg/dL 11/28/2022 6:56 PM [facility] Calcium 10.1 8.4 - 10.2 mg/dL 11/28/2022 6:56 PM [facility] Protein Total 7.1 6.0 - 8.3 g/dL 11/28/2022 6:56 PM [facility] Albumin 3.1(L) 3.4 - 5.0 g/dL 11/28/2022 6:56 PM [facility] Bilirubin Total 1.0 0.2 - 1.2 mg/dL 11/28/2022 6:56 PM [facility] Alkaline Phosphatase 96 40 - 150 U/L 11/28/2022 6:56 PM [facility] ALT 7 5 - 55 U/L 11/28/2022 6:56 PM [facility] AST 24 5 - 34 U/L 11/28/2022 6:56 PM [facility] Anion Gap 12 8 - 18 11/28/2022 6:56 PM [facility] BUN/Creatinine Ratio 21 7 - 23 11/28/2022 6:56 PM [facility] Osmolality Calculated 299 270 - 300 mOsm/kg 11/28/2022 6:56 PM [facility] Albumin/Globulin Ratio 0.8(L) 1.1 - 2.3 11/28/2022 6:56 PM [facility] eGFR by CKD-EPI 39(L) >=90 mL/min/1.7 3 m2 11/28/2022 6:56 PM [facility] Blood BLOOD SPECIMEN / Unknown Venipuncture / Unknown 11/28/2022 6:21 PM CDT 11/28/2022 6:29 PM T Ben Romano MD LAB - CHEMISTRY [facility] Organization Address City/State/ZIP Co de Phone Number [address] [address], [facility] [phone] * (ABNORMAL) BASIC METABOLIC PANEL (CALCIUM TOTAL) (11/27/2022 12:17 AM T) Only the most recent of3 resultswithin the time period is included. BUN 27(H) 7 - 26 mg/dL 11/27/2022 2:41 AM [facility] Creatinine 1.35(H) 0.56 - 0.96 mg/dL 11/27/2022 2:41 AM [facility] Sodium 139 136 - 145 mmol/L 11/27/2022 2:41 AM [facility] Potassium 4.2 3.5 - 4.5 mmol/L 11/27/2022 2:41 AM [facility] Chloride 115(H) 98 - 107 mmol/L 11/27/2022 2:41 AM [facility] CO2 19(L) 22 - 29 mmol/L 11/27/2022 2:41 AM [facility] Glucose 326(H) 70 - 115 mg/dL 11/27/2022 2:41 AM [facility] Calcium 8.6 8.4 - 10.2 mg/dL 11/27/2022 2:41 AM [facility] Anion Gap 9 8 - 18 11/27/2022 2:41 AM [facility] BUN/Creatinine Ratio 20 7 - 23 11/27/2022 2:41 AM [facility] Osmolality Calculated 306(H) 270 - 300 mOsm/kg 11/27/2022 2:41 AM [facility] eGFR by CKD-EPI 43(L) >=90 mL/min/1.7 3 m2 11/27/2022 2:41 AM [facility] Blood BLOOD SPECIMEN / Unknown Lab Venipuncture / Unknown 11/27/2022 12:17 AM CDT 11/27/2022 2:06 AM T Robbie Mccann MD LAB - CHEMISTRY [facility] Organization Address City/State/ZIP Co de Phone Number [facility] [address] [place] [address], [facility] [phone] * (ABNORMAL) HEMOGLOBIN A1C (11/26/2022 1:18 AM CDT) Only the most recent of2 resultswithin the time period is included. Hemoglobin A1c 9.1(H) <=5.6 % 11/26/2022 1:26 PM [facility] Estimated Average Glucose 214 mg/dL 11/26/2022 1:26 PM [facility] Comment: HbA1c Interpretation: Normal : < 5.7% Pre-diabetes: 5.7-6.4% Diabetes: Equal to or greater than 6.5% Test results diagnostic of diabetes should be repeated for confirmation. Treatment target values recommended by ADA and other clinical organizations should be used to evaluate metabolic control in patients. Reference: [place] [employer], Standards of Care in Diabetes [...] Mccann MD LAB - CHEMISTRY [place] [facility] Organization Address City/State/ZIP Co de Phone Number [address] [address], [facility] [phone] * Peripheral Nerve Block (11/25/2022 12:58 PM [...] BARON SURGERY (11/25/2022 11:28 AM CDT) Narrative [facility] RADIOLOGY - 11/25/2022 11:29 AM CDT Fluoroscopy was used for this exam in the OR. Please see the Operative report. Robbie Mccann MD FLUOROSCOPY ORDERABL ES [facility] RADIOLOGY * (ABNORMAL) BLOOD GAS+COOX+LYTES+METAB ARTERIAL POCT (11/25/2022 8:58 AM CDT) pH Arterial 7.36 7.35 - 7.45 pH 11/25/2022 8:58 AM [facility] pO2 Arterial 57(L) 80 - 100 mmHg 11/25/2022 8:58 AM [facility] pCO2 Arterial 38 35 - 45 mmHg 8:58 AM [facility] HCO3 Arterial 21.5 20.0 - 30.0 mmol/L 11/25/2022 8:58 AM [facility] BE Arterial -3.6(L) -2.0 - 2.0 mmol/L 11/25/2022 8:58 AM [facility] Oxyhemoglobin Arterial 88.0 % 11/25/2022 8:58 AM [facility] Dexoyhemoglobin (HHB) % 9.9 % 11/25/2022 8:58 AM [facility] Methemoglobin <0.8 0.0 - 2.0 % 11/25/2022 8:58 AM [facility] Carboxyhemoglobin 1.5 0.0 - 2.0 % 2022 8:58 AM [facility] Comment:Carboxyhemoglobin No rmal Concentration: Non-smokers: 0-2%; Smokers: 0- 9%; Toxic: >20% O2 Content Arterial 15.5 Interpret within clinical context ml/dL 11/25/2022 8:58 AM [facility] Hemoglobin by COOX 12.5 12.0 - 15.6 g/dL 11/25/2022 8:58 AM [facility] O2 Saturation Arterial 90 90 - 100 % 11/25/2022 8:58 AM [facility] Sodium Whole Blood 139 135 - 145 mmol/L 11/25/2022 8:58 AM [facility] Potassium Whole Blood 4.4 3.5 - 5.5 mmol/L 11/25/2022 8:58 AM [facility] Chloride WB 110 101 - 111 mmol/L 11/25/2022 8:58 AM [facility] Calcium Ionized 1.23 mmol/L 8:58 AM [facility] Ionized Calcium pH Adjusted 1.21 1.19 - 1.34 mmol/L 11/25/2022 8:58 AM [facility] Anion Gap (AG) Arterial 12 8 - 18 mmol/L 11/25/2022 8:58 AM [facility] Glucose WB 151(H) 70 - 105 mg/dL 11/25/2022 8:58 AM [facility] Lactic Acid Whole Blood 0.9 <=2.0 mmol/L 11/25/2022 8:58 AM [facility] Blood, arterial ARTERIAL BLOOD SPECIMEN / Unknown 11/25/2022 8:58 AM [facility] 11/25/2022 8:58 AM [facility] Robbie Mccann MD LAB - POINT OF CARE ORDERABLES Performing Organization Address City/State/[facility] Co de Phone Number [facility] [address] [place] [address], [place] [phone] * BLOOD GAS KACIE+LYTES+METAB+COOX POC NOTIF (11/25/2022 8:46 AM CDT) Comment Notification Label Only - See Separate Report 11/25/2022 10:00 AM CDT [facility] LABORATORY [facility] Other MISCELLANEOUS SAMPLES / Unknown 11/25/2022 8:46 AM CDT 11/25/2022 8:55 AM CDT Lyndsey Moore MD LAB - BLOOD GASES OR DERABLES [facility] [address] [place] [address], [facility] [phone] * ETT LINE PERFORMABLE (11/25/2022 8:35 AM CDT) Narrative Kristen Donato APRN-CRNA - 11/25/2022 8:35 AM CDT Kristen Donato APRN-CRNA 11/25/2022 8:35 AM Endotracheal Tube Placement: Patient Location: OR. Intubation Event Date/Time: 11/25/2022 7:36 AM Procedure: intubation ([id number]). Procedure Section: Sedation: under general anesthesia. Indications [...] included. Antibody Screen NEG 7:33 AM CDT [facility] BLOOD BANK LAB ABO Rh O POS 11/25/2022 7:33 AM CDT [facility] BLOOD BANK LAB Blood Bank BLOOD SPECIMEN / Unknown Venipuncture / Unknown 11/25/2022 6:42 AM CDT 11/25/2022 6:47 AM CDT Robbie Mccann MD LAB - BLOOD BANK ORD ERABLES [facility] BLOOD BANK LAB [address] [place] [address], [facility] [phone] * CT HUMERUS LEFT WO CONTRAST (10/20/2022 [...] DATE/TIME OF EXAM: 10/20/2022 3:42 PM, LOCATION [facility] INDICATION: S42.352G: Closed displaced comminuted fracture of [...] CONTRAST, DATE/TIME OF EXAM: :42 PM, LOCATION [facility] INDICATION: S42.352G: Closed displaced comminuted fracture of [...] * CARDIAC EKG ORDER (08/08/2022 8:26 AM [employer]) Narrative 08/08/2022 8:26 AM [employer] Ordered by an unspecified provider. Scanned Document CARDIAC SERVICES ORD ERABLES * SARS-COV-2 (COVID-19) RAPID (08/05/2022 8:57 AM [employer]) Only the most recent of3 resultswithin the time period is included. COVID-19 PCR Not detected Not detected 08/05/19 23 9:58 AM INDEPENDENT BEAUTY CONSULTANT [facility]OSP[facility] Microbiology SPECIMEN FROM NASOPHARYNGEAL STRUCTURE / Unknown Collection / Unknown 08/05/2022 8:57 AM [employer] 08/05/2022 9:05 AM [employer]ENT BEAUTY CONSULTANT Narrative [facility] - 08/05/2022 9:58 AM IN[employer]ENDENT BEAUTY CONSULTANT [employer] Xpert Xpress SARS-COV-2 has been [...] Funk MD LAB - MICROBIO LOGY ORDERABLES [address] [address], [facility] [phone] * XR WRIST LEFT 3VW OR MORE (07/29/2022 10:30 AM [employer]AUTY [employer]) Anatomical Region Laterality Modality Wrist / Hand Radiographic Sade ging 07/29/2022 11:1 4 AM [employer] Impressions 07/29/2022 11:15 AM [employer]AUT[employer] IMPRESSION: There is a well-corticated ossicle at the ulnar styloid that could represent a chronic fracture or an accessory ossicle. 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 No acute fracture. There is mild dorsal soft tissue swelling. > Interpreting Provider: John Menchaca MD on 07/29/2022 11:15 AM Narrative 07/29/2022 11:15 AM [employer] PROCEDURE: XR WRIST LEFT 3VW OR MORE, DATE/TIME OF EXAM: 07/29/2022 10:40 AM, LOCATION [facility] INDICATION: W19.XXXA: Fall, initial encounter ADDITIONAL CLINICAL INFORMATION: Ordering Provider Reason For Exam: fall with left humerus fracture and having wrist pain that is limiting function. COMPARISON: None. Procedure Note John Menchaca MD - 07/29/2022 PROCEDURE: XR WRIST LEFT 3VW OR MORE, DATE/TIME OF EXAM: 310:40 AM, LOCATION [facility] INDICATION: W19.XXXA: Fall, initial encounter ADDITIONAL CLINICAL [...] TO MICROSCOPIC NO CULTURE (07/28/2022 11:19 AM [employer]) Color UA Yellow Straw, Yellow 07/28/2022 11:36 AM [facility] Clarity UA Cloudy(A) Clear 07/28/2022 11:36 AM [facility] Specific Hurst UA 1.011 1.005 - 1.030 07/28/2022 11:36 AM [facility] pH UA 5.0 5.0 - 8.0 pH 07/28/2022 11:36 AM [facility] Protein UA Negative Negative 07/28/2022 11:36 AM [facility] Glucose UA Negative Negative 07/28/2022 11:36 AM [facility] Ketone UA Negative Negative 07/28/2022 11:36 AM [facility] Bilirubin UA Negative Negative 07/28/2022 11:36 AM [facility] Blood UA 1+(A) Negative 07/28/2022 11:36 AM [facility] Nitrite UA Negative Negative 07/28/2022 11:36 AM [facility] Leukocyte Esterase 3+(A) Negative 07/28/2022 11:36 AM [facility] Urobilinogen UA Negative Negative mg/dL 07/28/2022 11:36 AM [facility] RBC UA 6-10(A) None Seen, 0-2, 3-5 /HPF 07/28/2022 11:36 AM [facility] WBC UA >100(A) None Seen, 0-5 /HPF 07/28/2022 11:36 AM [facility] Bacteria UA 3+(A) None /HPF 07/28/2022 11:36 AM [facility] Squamous Epithelial Cells UA 3-5 None Seen, 0-2, 3-5 /HPF 07/28/2022 11:36 AM [facility] Mucus UA 1+ /LPF 07/28/2022 11:36 AM [facility] Urine URINE SPECIMEN OBTAINED BY CLEAN CATCH PROCEDURE / Unknown Collection / Unknown 07/28/2022 11:19 AM [employer] 07/28/2022 11:22 AM [employer]AUT[employer]ANT Narrative [facility] - 07/28/2022 11:36 AM [employer] Chago Leroy MD LAB - URINALYSIS ORD ERABLES [address] [address], [facility] [phone] * TRANSFUSE RED BLOOD CELL LEUKOREDUCED UNIT(S) (07/25/2022 5:13 PM [employer]AUT[employer]) Kashif Marquez MD NURSING - BLOOD PROD TRANSFUSION * PREPARE (CROSSMATCH) RBC UNIT(S), 1 Units (07/25/2022 2:32 PM [employer]AUTY [employer]SULTANT) Only the most recent of4 resultswithin the time period is included. Unit Description AS1 LR PRBC [facility] BLOOD BANK LAB Unit ABO O [facility] BLOOD BANK LAB Unit Rh POS [facility] BLOOD BANK LAB Product Number R44 [facility] B LOOD BANK LAB Unit Donor # [id number] [facility] BLOOD BANK LAB Unit Status transfused [facility] BLO OD BANK LAB Product Code [id number] [facility] BLO OD BANK LAB Blood Type Barcode 5100 [facility] BLOOD BANK LAB Expiration Date S BLOOD BANK LAB Blood Bank BLOOD SPECIMEN / Unknown 07/25/2022 8:32 AM [employer] Kashif Marquez MD LAB - BLOOD BANK ORD ERABLES [facility] BLOOD BANK LAB [address] [place] [address], [facility] [phone] * SMOOTH MUSCLE ANTIBODY W REFLEX TITER (07/24/2022 4:12 AM INDEPENDENT BEAUTY CONSULTANT) F-Actin Antibody IgG 3 0 - 19 Units 07/26/2022 12:05 AM INDEPENDENT BEAUTY CONSULTANT [employer] ([facility]) Comment: If F-Actin (Smooth Muscle) Antibody, [...] suspicion for AIH is strong. Performed By: [employer] [address] [place] [address] Corporate Quality Engineer: Eric Isbell MD, PhD Blood BLOOD SPECIMEN / Unknown Venipuncture / Unknown 07/24/2022 4:12 AM IN[employer] BEAUTY CONSULTANT 07/24/2022 4:46 AM [employer]AUT[employer]SULTANT Sarabjit Gutierrez MD LAB - SEROLOGY ORDERABLES [employer] [facility]) [address] [place], [place] [address] [place] [address] * MITOCHONDRIAL ANTIBODY SCREEN (07/24/2022 4:12 AM INDEPENDENT BEAUTY CONSULTANT) Mitochondrial M2 Antibody 1.0 0.0 - 24.9 Units 07/26/2022 12:06 AM INDEPENDENT BEAUTY CONSULTANT [employer] ([facility]) Comment: REFERENCE INTERVAL: Mitochondrial (M2) Antibody, [...] does not rule out PBC. Performed By: [employer] [address] [place] [address] Corporate Quality Engineer: Eric Isbell MD, PhD Blood BLOOD SPECIMEN / Unknown Venipuncture / Unknown 07/24/2022 4:12 AM INDEPENDENT BEAUTY CONSULTANT 07/24/2022 4:37 AM INDEPENDENT BEAUTY CONSULTANT Sarabjit Gutierrez MD LAB - CHEMISTRY ORDERABLES [facility]) [address] [place] [address], [facility] * MATTIE BLOOD SCREEN W/REFLEX TITER (07/24/2022 4:12 AM INDEPENDENT BEAUTY CONSULTANT) Pathologist [facility] MATTEI IgG None Detected None Detected 07/25/2022 11:18 PM INDEPENDENT BEAUTY CONSULTANT [facility] ([facility]) Comment: If suspicion of connective tissue disease is strong and MATTIE EIA is negative, consider testing for MATTIE by IFA ([id number]). INTERPRETIVE INFORMATION: Anti-Nuclear Antibodies (MATTIE), IgG by ANITRA Antinuclear Antibodies (MATTIE), IgG by ANITRA: MATTIE specimens are screened using enzyme-linked immunosorbent assay (ANITRA) methodology. All ANITRA results reported as Detected are further tested by indirect fluorescent assay (IFA) using HEp-2 substrate with an IgG-specific conjugate. The MATTIE ANITRA screen is designed to detect antibodies against dsDNA, histones, SS-A (Ro), SS-B (La), Conlye, Conley/TELEMARKETING SUPERVISOR, Scl-70, Martha-1, centromeric proteins, other antigens extracted from the HEp-2 cell nucleus. MATTIE ANITRA assays have been reported to have lower sensitivities than MATTIE IFA for systemic autoimmune rheumatic diseases (SARD). Negative results do not necessarily rule out SARD. Performed By: [employer] [address] [place] [address] Corporate Quality Engineer: Eric Isbell MD, PhD Blood BLOOD SPECIMEN / Unknown Venipuncture / Unknown 07/24/2022 4:12 AM INDEPENDENT BEAUTY CONSULTANT 07/24/2022 4:46 AM INDEPENDENT BEAUTY CONSULTANT Sarabjit Gutierrez MD LAB - CHEMISTRY ORDERABLES Performing Organization Address [facility] Co de Phone Number [facility]) [address] [place] [address] * (ABNORMAL) GASTRIN (07/24/2022 4:12 AM INDEPENDENT BEAUTY CONSULTANT) Gastrin 174(H) 0 - 100 pg/mL 07/26/2022 3:11 AM INDEPENDENT BEAUTY CONSULTANT [facility] ([facility]) Comment: Performed By: [employer] [address] [place] [address] Corporate Quality Engineer: Eric Isbell MD, PhD Blood BLOOD SPECIMEN / Unknown Venipuncture / Unknown 07/24/2022 4:12 AM INDEPENDENT BEAUTY CONSULTANT 07/24/2022 4:37 AM INDEPENDENT BEAUTY CONSULTANT Sarabjit Gutierrez MD LAB - CHEMISTRY ORDERABLES Performing Organization Address [facility] Co de Phone Number [facility]) [address] [place] [address] * CERULOPLASMIN (07/24/2022 4:12 AM INDEPENDENT BEAUTY CONSULTANT) Ceruloplasmin 32 20 - 60 mg/dL 07/24/2022 5:46 AM INDEPENDENT BEAUTY CONSULTANT [facility] Blood BLOOD SPECIMEN / Unknown Venipuncture / Unknown 07/24/2022 4:12 AM INDEPENDENT BEAUTY CONSULTANT 07/24/2022 4:37 AM INDEPENDENT BEAUTY CONSULTANT Sarabjit Gutierrez MD LAB - CHEMISTRY ORDERABLES [address] [address], [place] [phone] * (ABNORMAL) FJEHO-0-[id number] BLOOD (07/24/2022 4:12 AM INDEPENDENT BEAUTY CONSULTANT) Fmnfh-0-Vvnypa ypsin 334(H) 90 - 200 mg/dL 07/24/2022 5:30 AM [facility] Comment:Result obtained by arabella torrez. Blood BLOOD SPECIMEN / Unknown Venipuncture / Unknown 07/24/2022 4:12 AM INDEPENDENT BEAUTY CONSULTANT 07/24/2022 4:37 AM INDEPENDENT BEAUTY CONSULTANT Sarabjit Gutierrez MD LAB - CHEMISTRY ORDERABLES Performing Organization Address City/[facility]/ZIP Co de Phone Number [address] [address], [place] [phone] * GGT (07/24/2022 4:12 AM INDEPENDENT BEAUTY CONSULTANT) GGT 14 9 - 64 Units/L 07/24/2022 4:51 AM [facility] Blood BLOOD SPECIMEN / Unknown Venipuncture / Unknown 07/24/2022 4:12 AM INDEPENDENT BEAUTY CONSULTANT 07/24/2022 4:24 AM INDEPENDENT BEAUTY CONSULTANT Sarabjit Gutierrez MD LAB - CHEMISTRY ORDERABLES [address] [address], [place] [phone] * (ABNORMAL) IRON + TRANSFERRIN PANEL (07/24/2022 4:12 AM INDEPENDENT BEAUTY CONSULTANT) Iron 23(L) 40 - 150 ug/dL 07/24/2022 4:52 AM [facility] Transferrin 134(L) 174 - 382 mg/dL 07/24/2022 4:52 AM [facility] Transferrin Saturation % 14(L) 16 - 50 % 07/24/2022 4:52 AM [facility] TIBC Calculated 168(L) 240 - 450 ug/dL 07/24/2022 4:52 AM [facility] Blood BLOOD SPECIMEN / Unknown Venipuncture / Unknown 07/24/2022 4:12 AM INDEPENDENT BEAUTY CONSULTANT 07/24/2022 4:37 AM INDEPENDENT BEAUTY CONSULTANT Sarabjit Gutierrez MD LAB - CHEMISTRY ORDERABLES Performing Organization Address City/[facility]/ZIP Co de Phone Number [address] [address], [facility] [phone] * HEPATITIS SCREEN ACUTE (07/24/2022 4:12 AM INDEPENDENT BEAUTY CONSULTANT) Hepatitis A Virus Antibody IgM Non-react bartolome Non-reac tive 07/24/2022 5:11 AM [facility] Hepatitis B Virus Surface Antigen Non-react bartolome Non-reac tive 07/24/2022 5:11 AM [facility] Hepatitis B Core Virus Antibody IgM Non-react bartolome Non-reac tive 07/24/2022 5:11 AM [facility] Hepatitis C Antibody Non-react bartolome Non-reac tive 07/24/2022 5:11 AM [facility] Comment:Hepatitis C Antibody screen indicates no serologic evidence of past or current infection with Hepatitis C Virus. Patients with unexplained liver disease who are immunocompromised or suspected of having acute Hepatitis C infection may benefit from Nucleic Acid Test (CHA) for Hepatitis C Viral RNA to confirm Hepatitis C status. Blood BLOOD SPECIMEN / Unknown Venipuncture / Unknown 07/24/2022 4:12 AM INDEPENDENT BEAUTY CONSULTANT 07/24/2022 4:37 AM INDEPENDENT BEAUTY CONSULTANT Sarabjit Gutierrez MD LAB - CHEMISTRY ORDERABLES [address] [address], [place] [phone] * (ABNORMAL) FERRITIN (07/24/2022 4:12 AM INDEPENDENT BEAUTY CONSULTANT) Ferritin 278(H) 13 - 204 ng/mL 07/24/2022 5:11 AM [facility] Blood BLOOD SPECIMEN / Unknown Venipuncture / Unknown 07/24/2022 4:12 AM INDEPENDENT BEAUTY CONSULTANT 07/24/2022 4:37 AM INDEPENDENT BEAUTY CONSULTANT Sarabjit Gutierrez MD LAB - CHEMISTRY ORDERABLES Performing Organization Address City/[facility]/ZIP Co de Phone Number [facility] [address] [place] [address], [facility] [phone] * (ABNORMAL) TRIGLYCERIDES BLOOD (07/23/2022 3:02 AM [employer]) Triglycerides 151(H) <150 mg/dL 07/23/2022 3:39 AM [facility] Comment: ATP III Classification of Triglycerides: <150 mg/dL: Normal 150 - 199 mg/dL: Borderline High 200 - 400 mg/dL: High >500 mg/dL: Very High Blood BLOOD SPECIMEN / Unknown Venipuncture / Unknown 07/23/2022 3:02 AM [employer] 07/23/2022 3:12 AM [employer] Antonia Iqbal MD LAB - CHEMISTRY ORDE JONATHAN Performing Organization Address [facility] Co de Phone Number [facility] [address] [place] [address], [facility] [phone] * EKG 12-LEAD (07/22/2022 7:32 AM [employer]) Only the most recent of2 resultswithin the time period is included. Ventricular Rate 92 BPM [facility] MUSE Atrial Rate 92 BPM [facility] MUSE P-R Interval 184 ms [facility] MUSE QRS Duration ms 100 ms [facility] MUSE Q-T Interval ms 388 ms [facility] MUSE QTC Calculation (Bezet) 479 ms [facility] MUSE Calculated P [place] 14 degrees [facility] MUSE Calculated R [place] -16 degrees [facility] MUSE Calculated T [place] 87 degrees [facility] MUSE Interpretation EKG NORMAL SINUS RHYTHM CANNOT RULE OUT ANTERIOR INFARCT (CITED ON OR BEFORE 11-JUL-2022) NON-SPECIFIC INTRA-VENTRICUL AR CONDUCTION DELAY NONSPECIFIC ST & T WAVE CHANGES ABNORMAL ECG WHEN COMPARED WITH ECG OF 11-JUL-2022 20:39, SINUS RHYTHM HAS REPLACED ATRIAL FIBRILLATION Confirmed by fellow EMMANUEL POLK MD ([id number]) on 07/23/2022 10:37:00 AM Confirmed by SILVANO DIAZ MD ([id number]) on 07/23/2022 1:32:51 PM [facility] MUSE 07/22/2022 7:32 AM [employer]ENT BEAUTY CONSULTANT 07/23/2022 1:32 PM INDEPENDENT BEAUTY CONSULTANT Antonia Iqbal MD ECG ORDERABLES Performing Organization Address [facility] Co de Phone Number [facility] MUSE * HELICOBACTER PYLORI ANTIGEN FECES (07/21/2022 4:44 PM INDEPENDENT BEAUTY CONSULTANT) Helicobacter pylori Antigen Stool Negative Negative 07/23/2022 11:31 PM INDEPENDENT BEAUTY CONSULTANT [facility] ([facility]) Comment: Performed By: [employer] [address] [place] [address] Corporate Quality Engineer: Eric Isbell MD, PhD Stool STOOL SPECIMEN / Unknown Collection / Unknown 07/21/2022 4:44 PM IN[employer]ENT BEAUTY CONSULTANT 07/21/2022 4:48 PM INDEP[employer]ENT BEAUTY CONSULTANT Antonia Iqbal MD LAB - MICROBIOLOGY O RDERABLES Performing Organization Address [facility] de Phone Number [facility] [address] * (ABNORMAL) BLOOD GASES ART + COOX PANEL (07/21/2022 2:44 PM INDEPENDENT BEAUTY CONSULTANT) pH Arterial 7.47(H) 7.35 - 7.45 pH 07/21/2022 2:48 PM INDEPENDENT BEAUTY CONSULTANT [facility]ORATORY [facility] pO2 Arterial 127(H) 80 - 100 mmHg 07/21/2022 2:48 PM INDEPENDENT BEAUTY CONSULTANT [facility]ORATORY [facility] pCO2 Arterial 23(L) 35 - 45 mmHg 2:48 PM INDEPENDENT BEAUTY CONSULTANT [facility]ORATORY [facility] HCO3 Arterial 17(L) 20 - 30 mmol/l 07/21/2022 2:48 PM INDEPENDENT BEAUTY CONSULTANT [facility] BE Arterial -5.9(L) -2.0 - 2.0 mmol/L 07/21/2022 2:48 PM INDEPENDENT BEAUTY CONSULTANT [facility] Oxyhemoglobin Arterial 96.9 % 07/21/2022 2:48 PM [facility] Dexoyhemoglobin (HHB) % 0.2 % 07/21/2022 2:48 PM [facility] Methemoglobin 1.2 0.0 - 2.0 % 07/21/2022 2:48 PM [facility] Carboxyhemoglobin 1.7 0.0 - 2.0 % 2022 2:48 PM [facility] O2 Content Arterial 12.1 Interpret within clinical context ml/dL 07/21/2022 2:48 PM [facility] Hemoglobin by COOX 8.7(L) 12.0 - 15.6 g/dL 07/21/2022 2:48 PM [facility] O2 Saturation Arterial 100 90 - 100 % 07/21/2022 2:48 PM [facility] FI O2 Arterial 30.0 % 07/21/2022 2:48 PM [facility] Blood, arterial ARTERIAL BLOOD SPECIMEN / Unknown Arterial Puncture / Unknown 07/21/2022 2:44 PM IN[employer]ENT BEAUTY CONSULTANT 07/21/2022 2:47 PM [facility] - 07/21/2022 2:48 PM [facility] Carboxyhemoglobin Normal Concentration: Non-smokers: 0-2%; Smokers: 0-9%; Toxic: >20% Antonia Iqbal MD LAB - BLOOD GASES OR DERABLES [facility] [address] [place] [address], [facility] [phone] * EGD (07/21/2022 1:21 PM INDEPENDENT BEAUTY CONSULTANT) Report Endoscopy POC Endoscopy Department Report __ [...] and oxygen saturations were monitored continuously. The [id number] was introduced through the mouth, and advanced [...] non-mancuso portions. Procedure Code(s): --- Professional --- 69479, Esophagogastroduode noscopy, flexible, transoral; with control of bleeding, any method Diagnosis Code(s): --- Professional --- K22.11, Ulcer of esophagus with bleeding K92.2, Gastrointestinal hemorrhage, unspecified K26.4, Chronic or unspecified duodenal ulcer with hemorrhage K26.9, Duodenal ulcer, unspecified as acute or chronic, without hemorrhage or perforation I48.91, Unspecified atrial fibrillation K57.10, Diverticulosis of small intestine without perforation or abscess without bleeding CPT copyright 2019 [employer]. All rights reserved. The codes documented in this report are preliminary and upon quiller runner review may be revised to meet current compliance requirements. Henry Swanson, 07/21/2022 3:06:26 PM Note Initiated On: 07/21/2022 1:21 PM Number of Addenda: [address] [id number] [facility] 07/21/2022 1:21 PM INDEPENDENT BEAUTY CONSULTANT Antonia Iqbal MD GI PROCEDURE ORDERAB LES Performing Organization Address [facility] Co de Phone Number [facility] * (ABNORMAL) TEG 6 GLOBAL HEMOSTASIS W/ LYSIS (07/21/2022 12:22 PM INDEPENDENT BEAUTY CONSULTANT) Citrated Kaolin R (Reaction Time) 4.2(L) 4.6 - 9.1 min 07/21/2022 1:30 PM INDEPENDENT BEAUTY CONSULTANT [facility] Comment:CK R result below no rmal range. Consistent with hypercoagulable clotting factors. Citrated Kaolin LY30 (Lysis) 0.0 0.0 - 2.6 % 07/21/2022 1:30 PM INDEPENDENT BEAUTY CONSULTANT [facility] Citrated Functional Fibrinogen MA (Max Amplitude) 41.7(H) 15.0 - 32.0 mm 07/21/2022 1:30 PM [facility] Comment:CFF MA above normal range. Consistent with elevated fibrinogen contribution to clot strength. Citrated RapidTEG MA (Max Amplitude) 69.8 52.0 - 70.0 mm 07/21/2022 1:30 PM INDEPENDENT BEAUTY CONSULTANT [facility] Blood BLOOD SPECIMEN / Unknown Venipuncture / Unknown 07/21/2022 12:22 PM IN[employer] BEAUT[employer] CONSULTANT 07/21/2022 12:31 PM INDEP[employer]ENT BEAUTY CONSULTANT Antonia Iqbal MD LAB - HEMATOLOGY ORD ERABLES Performing Organization Address City/[facility]/ZIP Co de Phone Number [address] [phone] [phone] * CT ANGIO ABDOMEN PELVIS (07/21/2022 10:11 AM INDEPENDENT BEAUTY CONSULTANT) Anatomical Region Laterality Modality Abdomen, Pelvis Computed Tomogra phy 07/21/2022 10:2 3 AM INDEPENDENT BEAUTY CONSULTANT Impressions 07/21/2022 12:53 PM INDEPENDENT BEAUTY CONSULTANT Impression 1. Hyperdense layering content in the [...] verification. > Dictated by Lou Bernard M.D. (resident care provider). I, John Menchaca MD have personally reviewed and interpreted this examination/study. > Interpreting Provider: John Menchaca MD on 07/21/2022 12:53 PM Narrative 07/21/2022 12:53 PM INDEPENDENT BEAUTY CONSULTANT PROCEDURE: CT ANGIO ABDOMEN PELVIS, DATE/TIME OF EXAM: 07/21/2022 10:12 AM, LOCATION [facility] INDICATION: K92.2: Lower GI bleed ADDITIONAL CLINICAL [...] PELVIS, DATE/TIME OF EXAM: 07/21/2022 10:12AM, LOCATION [facility] INDICATION: K92.2: Lower GI bleed ADDITIONAL CLINICAL [...] verification. > Dictated by Lou Bernard M.D. (resident care provider). I, John Menchaca MD have personally reviewed and interpreted this examination/study. > Interpreting Provider: John Menchaca MD on 07/21/2022 12:53 PM Elke Lomeli MD CT ORDERABLES * BLOOD TYPE VERIFICATION (07/21/2022 7:10 AM INDEPENDENT BEAUTY CONSULTANT) ABO Rh O POS 07/21/2022 7:3 2 AM INDEPENDENT BEAUTY CONSULTANT [facility] BLOOD BANK LAB Blood Bank BLOOD SPECIMEN / Unknown Venipuncture / Unknown 07/21/2022 7:10 AM INDEPENDENT BEAUTY CONSULTANT 07/21/2022 7:21 AM INDEPENDENT BEAUTY CONSULTANT Laura Yi MD LAB - BLOOD BANK ORD ERABLES [facility] BLOOD BANK LAB [address] [place] [address], [facility] [phone] * PHOSPHORUS BLOOD (07/21/2022 6:11 AM INDEPENDENT BEAUTY CONSULTANT) Pathologist [facility] Phosphorus 3.5 2.9 - 5.1 mg/dL 07/21/2022 6:54 AM [facility] Blood BLOOD SPECIMEN / Unknown Venipuncture / Unknown 07/21/2022 6:11 AM INDEPENDENT BEAUTY CONSULTANT 07/21/2022 6:23 AM INDEPENDENT BEAUTY CONSULTANT Phani Funk MD LAB - CHEMISTR Y ORDERABLES [address] [address], [facility] [phone] * ECHO COMPLETE (07/15/2022 11:33 AM INDEPENDENT BEAUTY CONSULTANT) Anatomical Region Laterality Modality Chest Echo 07/15/2022 10:4 0 AM INDEPENDENT BEAUTY CONSULTANT Narrative Procedure Note Khurram Hernandez MD - 07/15/2022 Vishal Mock MD ECHOCARDIOGRAPHY RAD IANT * TSH REFLEX FREE T4 (07/12/2022 6:07 AM INDEPENDENT BEAUTY CONSULTANT) [facility] TSH 2.518 0.350 - 4.940 uIU/mL 07/12/2022 7:12 AM [facility] Blood BLOOD SPECIMEN / Unknown Venipuncture / Unknown 07/12/2022 6:07 AM INDEPENDENT BEAUTY CONSULTANT 07/12/2022 6:24 AM INDEPENDENT BEAUTY CONSULTANT Vishal Mock MD LAB - CHEMISTRY ORDE RABLES Performing Organization Address City/[facility]/ZIP Co de Phone Number [address] [address], [facility] [phone] * (ABNORMAL) URINE DRUG SCREEN IMMUNOASSAY (07/09/2022 5:29 AM INDEPENDENT BEAUTY CONSULTANT) [facility] Amphetamines Screen Urine Negative Negative : < 1000 ng/mL 07/09/2022 5:59 AM [facility] Barbiturates Screen Urine Negative Negative : < 200 ng/mL 07/09/2022 5:59 AM [facility] Benzodiazepine Screen Urine Negative Negative : < 200 ng/mL 07/09/2022 5:59 AM [facility] Opiates Urine Positive(A) Negative : < 300 ng/mL 07/09/2022 5:59 AM [facility] Comment:Positive urine opiat e screening results should be confirmed by another generally accepted non-immunological method such as gas chromatography or mass spectrometry. Cocaine Metabolites Urine Negative Negative : < 300 ng/mL 07/09/2022 5:59 AM [facility] Phencyclidine Screen Urine Negative Negative : < 25 ng/ml 07/09/2022 5:59 AM [facility] Cannabinoids Screen Urine Negative Negative : <50 ng/mL 07/09/2022 5:59 AM [facility] Methadone Screen Urine Negative Negative : < 300 ng/mL 07/09/2022 5:59 AM [facility] Fentanyl Screen Urine Negative Negative : <1.5 ng/mL 07/09/2022 5:59 AM [facility] Urine URINE / Unknown Collection / Unknown 07/09/2022 5:29 AM [facility] 07/09/2022 5:36 AM [facility] - 07/09/2022 5:59 AM [facility] The Urine Toxicology Screening Panel does not screen for Propoxyphene, Meprobamate, Carisoprodol, Trazodone, [id number]-rak-xpyzovx medications and/or volatiles (Acetone, Isopropanol, Methanol or Ethylene Glycol). Ethanol, Salicylate, Acetaminophen, Tricyclic Antidepressants and several therapeutic drugs may be individually assayed in serum or plasma specimen. Toxicology testing by the [facility] is an aid to medical diagnosis and treatment of patients. No documented chain of custody was maintained. Results are intended to be used for clinical purposes only. Davida Negron MD LAB - URINE CHEMISTR Y ORDERABLES [facility] [address] [place] [address], [facility] [phone] * (ABNORMAL) LEVETIRACETAM LEVEL (07/08/2022 12:21 AM INDEPENDENT BEAUTY CONSULTANT) Levetiracetam <2(L) 10 - 40 ug/mL 07/09/2022 11:46 PM INDEPENDENT BEAUTY CONSULTANT [facility] ([facility]) Comment: INTERPRETIVE INFORMATION: Keppra (Levetiracetam) Therapeutic Range: 10-40 ug/mL Toxic: Not well Established Pharmacokinetics of levetiracetam are affected by renal function. Adverse effects may include somnolence, weakness, headache and vomiting. This levetiracetam (Keppra) immunoassay uses the [employer] reagents, which has known cross-reactivity with the drug brivaracetam (Briviact) and may report inaccurate results. Patients transitioning from levetiracetam to brivaracetam or those who are using both medications should not monitor drug concentrations with the [employer] assay. These patients should be monitored using a validated chromatographic methodology that distinguishes between drugs to determine drug concentrations. Performed By: [facility] [employer] [address] [place] [address] Corporate Quality Engineer: Eric Isbell MD, PhD Blood BLOOD SPECIMEN / Unknown Venipuncture / Unknown 07/08/2022 12:21 AM INDEPENDENT BEAUTY CONSULTANT 07/08/2022 12:27 AM INDEPENDENT BEAUTY CONSULTANT Ankit White MD LAB - THERAPEUTIC MONITORING ORDERABLES Performing Organization Address [facility]/ZIP Co de Phone Number [facility]) [address] [place] [address] * (ABNORMAL) HYDROXYBUTYRATE BETA (07/08/2022 12:21 AM INDEPENDENT BEAUTY CONSULTANT) Beta-Hydroxybu tyrate 2.56(H) <0.50 mmol/L 07/08/2022 12:55 AM INDEPENDENT BEAUTY CONSULTANT [facility] Blood BLOOD SPECIMEN / Unknown Venipuncture / Unknown 07/08/2022 12:21 AM INDEPENDENT BEAUTY CONSULTANT 07/08/2022 12:30 AM INDEPENDENT BEAUTY CONSULTANT Ankit White MD LAB - CHEMISTRY [facility] [address] [place] [address], [place] [phone] * LACTIC ACID BLOOD (07/08/2022 12:21 AM INDEPENDENT BEAUTY CONSULTANT) Lactic Acid-Stat 1.6 <=2.0 mmol/L 07/08/2022 12:51 AM INDEPENDENT BEAUTY CONSULTANT [facility] Blood BLOOD SPECIMEN / Unknown Venipuncture / Unknown 07/08/2022 12:21 AM INDEPENDENT BEAUTY CONSULTANT 07/08/2022 12:30 AM INDEPENDENT BEAUTY CONSULTANT Ankit Wihte MD LAB - CHEMISTRY [facility] [address] [address], [place] [phone] * (ABNORMAL) PHENYTOIN LEVEL TOTAL (07/08/2022 12:21 AM INDEPENDENT BEAUTY CONSULTANT) Pathologist [facility] Phenytoin, total <1.8(L) 10.0 - 20.0 ug/mL 07/08/2022 12:55 AM INDEPENDENT BEAUTY CONSULTANT [facility] Blood BLOOD SPECIMEN / Unknown Venipuncture / Unknown 07/08/2022 12:21 AM INDEPENDENT BEAUTY CONSULTANT 07/08/2022 12:30 AM INDEPENDENT BEAUTY CONSULTANT Ankit White MD LAB - CHEMISTRY [facility] Performing Organization Address City/[facility]/ZIP Co de Phone Number [address] [address], [place] [phone] * (ABNORMAL) CK BLOOD (07/08/2022 12:21 AM INDEPENDENT BEAUTY CONSULTANT) Pathologist [facility] CK Total 796(H) 30 - 200 U/L 07/08/2022 12:55 AM INDEPENDENT BEAUTY CONSULTANT [facility] Blood BLOOD SPECIMEN / Unknown Venipuncture / Unknown 07/08/2022 12:21 AM INDEPENDENT BEAUTY CONSULTANT 07/08/2022 12:30 AM INDEPENDENT BEAUTY CONSULTANT Ankit White MD LAB - CHEMISTRY [facility] [address] [place] [address], [facility] [phone] * SARS-COV-2 (COVID-19)+INFLU A+B PCR RAPID (07/07/2022 10:59 PM INDEPENDENT BEAUTY CONSULTANT) COVID-19 PCR Not detected Not detected 07/07/20 11:44 PM INDEPENDENT BEAUTY CONSULTANT [facility] Influenza A Rapid MIKE Not Detected Not Detected 07/07/2022 11:44 PM INDEPENDENT BEAUTY CONSULTANT [facility] Influenza B MIKE Rapid Not Detected Not Detected 07/07/2022 11:44 PM INDEPENDENT BEAUTY CONSULTANT [facility] Microbiology SPECIMEN FROM NASOPHARYNGEAL STRUCTURE / Unknown Collection / Unknown 07/07/2022 10:59 PM INDEPENDENT BEAUTY CONSULTANT 07/07/2022 11:03 PM INDEPENDENT BEAUTY CONSULTANT [facility] - 07/07/2022 11:44 PM INDEPENDENT BEAUTY CONSULTANT Influenza assay performed by [employer]. [...] acid amplification assay performance was validated by [facility]. This test has been authorized by the [...] White MD LAB - MICROBIOLOGY O RDERABLES [facility] [address] [place] [address], [facility] [phone] Care Teams Clerical Coordinator Relationship Specialty Start Date End Date Allie Sinclair PA-C [address] [place] [id number] PCP - General 07/08/22
--- OUTSIDE RECORDS SUMMARY | 2024-10-03 15:47 | XMS_ITS | Clinical Summary ---
Author Organization [facility] Address [address] [place] [phone] Phone Care Team Providers Care Aircraft Worker Name Role Phone Marcelino Gore MD Primary Care Provider [phone] Allergies No known active allergies Medications Medication [...] Type Department Care Team Description 08/21/2024 Refill [facility] [address] [place] [phone] Lizzeth Mohan NP 08/18/2024 9:00 AM DEPARTMENT ADMINISTRATOR Office Visit [facility] [address] [place] [phone] Lizzeth Mohan NP Stage 3a chronic kidney disease (CMS-HCC) (Primary Dx); Hypertensive chronic kidney disease with stage 1 through stage 4 chronic kidney disease, or unspecified chronic kidney disease; Secondary hyperparathyroidism of renal origin (CMS-HCC); Type 2 diabetes mellitus with other diabetic kidney complication ([facility]-HCC); Urinary tract infectious disease; Candidiasis of skin 08/16/2024 Orders Only [facility] [address] [place] [phone] Lizzeth Mohan NP from Last 3 Months [...] Comments Blood Pressure 122/66 08/18/2024 8:53 AM DEPARTMENT ADMINISTRATOR Pulse 62 08/18/2024 8:53 AM DEPARTMENT ADMINISTRATOR Temperature - - Respiratory Rate - - Oxygen Saturation 98% 03/12/2023 1:47 PM CDT Inhaled Oxygen Concentration - - Weight 82.1 kg (181 lb) 08/18/2024 8:53 AM DEPARTMENT ADMINISTRATOR Height 170.2 cm (5' 7 ) 08/18/2024 8:53 AM DEPARTMENT ADMINISTRATOR Body Mass Index 28.35 08/18/2024 8:53 AM DEPARTMENT ADMINISTRATOR Plan of Treatment Upcoming Encounters Date Type Department Care Team (Late st Contact Info) Description 11/10/2024 1:00 PM CDT Office Visit [facility] [address] [facility] [address] [place] [address] Lizzeth Mohan NP [address] [facility] [address] [place] [address] Health Maintenance Due Date Last Done Comments Pneumococcal PPSV23/PCV13 65 + Years / High and Highest Risk (1 of 4 - PCV) 01/14/1960 Diabetic Foot Exam 01/14/1964 Ophthalmology Exam 01/14/1964 Influenza Vaccine (#1) 2024 3, 05/10/2021, 05/17/2019, Additional history exists Procedures Procedure Name Priority Date/Time Associated Diagnosis Comments SPECIMEN STATUS REPORT Routine 08/16/2024 1:26 PM DEPARTMENT ADMINISTRATOR PTH, INTACT Routine 08/16/2024 1:26 PM DEPARTMENT ADMINISTRATOR TEXT / FREE TEXT - RESULT Routine 08/16/2024 1:26 PM DEPARTMENT ADMINISTRATOR URINE CULTURE, ROUTINE Routine 08/16/2024 1:26 PM DEPARTMENT ADMINISTRATOR LITHOLINK CKD PROGRAM Routine 08/16/2024 1:26 PM DEPARTMENT ADMINISTRATOR RENAL FUNCTION PANEL (RFP) Routine 08/16/2024 1:26 PM DEPARTMENT ADMINISTRATOR MICROSCOPIC EXAMINATION Routine 08/16/2024 1:26 PM DEPARTMENT ADMINISTRATOR URINALYSIS ROUTINE W/ REFLEX MICROSCOPIC Routine 08/16/2024 1:26 PM DEPARTMENT ADMINISTRATOR CBC/DIFF AMBIGUOUS DEFAULT Routine 08/16/2024 1:26 PM DEPARTMENT ADMINISTRATOR from Last 3 Months Results * PTH, Intact (08/16/2024 1:26 PM DEPARTMENT ADMINISTRATOR) PTH, Intact, Serum/Plasma 24 15 - 65 pg/mL [facility] 1 08/16/2024 1:26 PM DEPARTMENT ADMINISTRATOR 08/15/2024 11:00 PM DEPARTMENT ADMINISTRATOR Narrative [facility] - 08/22/2024 4:07 PM DEPARTMENT ADMINISTRATOR Performed at: [address] [place] [address] [id number] Airport Security Screener: Kvng Roca PhD, Phone: [phone] Lizzeth Mohan NP LAB BLOOD ORDERABLES [facility] 1 * Specimen Status Report (08/16/2024 1:26 PM DEPARTMENT ADMINISTRATOR) Pathologist [facility] Specimen Status Report Comment [facility] 1 Comment: Ambig Abbrev RP10 Default Ambig Abbrev RP10 Default A hand-written panel/profile was received from your office. In accordance with the [facility] Ambiguous Test Code Policy dated January 2003, we have completed your order by using the closest currently or formerly recognized AMA panel. We have assigned Renal Panel (10), Test Code #[id number] to this request. If this is not the testing you wished to receive on this specimen, please contact the [facility] Client Inquiry/Technical Services Department to clarify the test order. We appreciate your business. 08/16/2024 1:26 PM DEPARTMENT ADMINISTRATOR 08/15/2024 11:00 PM DEPARTMENT ADMINISTRATOR Narrative [facility] - 08/22/2024 4:07 PM DEPARTMENT ADMINISTRATOR Performed at: [address] [place] [address] [id number] Airport Security Screener: Kvng Roca PhD, Phone: [phone] Lizzeth Edwards Marques [place] LAB BLOOD ORDERABLES [facility] * (ABNORMAL) Text / Free Text - Result (08/16/2024 1:26 PM DEPARTMENT ADMINISTRATOR) [facility] Reference lab test results Enterococcus faecalis(A) [facility] 1 Comment: For Enterococcus species, aminoglycosides (except for high-level resistance screening), cephalosporins, clindamycin, and trimethoprim-sulfamethoxazole are not effective clinically. (CLSI, Q250-Z75, 2016) 25,000-50,000 colony forming units per mL Enterococci susceptible to penicillin are predictably susceptible to ampicillin, amoxicillin, ampicillin-sulbactam, amoxicillin-clavulanate, and piperacillin-tazobactam for [id number] producing enterococci. (CLSI 2018) Note: this isolate [...] Trimethoprim/Sulfa S Vancomycin S 08/16/2024 1:26 PM DEPARTMENT ADMINISTRATOR 08/15/2024 11:00 PM DEPARTMENT ADMINISTRATOR Narrative [facility] - 08/22/2024 4:07 PM DEPARTMENT ADMINISTRATOR Performed at: 01 - [address] [id number] Airport Security Screener: Kvng Roca PhD, Phone: [phone] Lizzeth Edwards Marques [place] LAB BLOOD ORDERABLES [facility] * CBC/Diff Ambiguous Default (08/16/2024 1:26 PM DEPARTMENT ADMINISTRATOR) Pathologist [facility] Leukocytes, Blood 6.5 3.4 - 10.8 x10E3/uL [...] have assigned CBC with Differential/Platelet, Test Code #[id number] to this request. If this is not the testing you wished to receive on this specimen, please contact the [facility] Client Inquiry/ Technical Services Department to clarify the test order. We appreciate your business. 08/16/2024 1:26 PM DEPARTMENT ADMINISTRATOR 08/15/2024 11:00 PM DEPARTMENT ADMINISTRATOR Narrative [facility] - 08/22/2024 4:07 PM DEPARTMENT ADMINISTRATOR Performed at: [address] [id number] Airport Security Screener: Kvng Roca PhD, Phone: [phone] Specimen Comment: A courtesy copy of this report has been sent to [phone] Lizzeth Mohan NP LAB [facility]LOOD [facility]ABLES [facility] * [facility] CKD Program (08/16/2024 1:26 PM DEPARTMENT ADMINISTRATOR) Interpretation Note [facility] 2 Comment: Industrial Hygiene Engineer's Note: CBC Note: A hand-written panel/profile was received from your office. In accordance with the [facility] Ambiguous Test Code Policy dated January 2003, we have assigned CBC with Differential/Platelet, Test Code #[id number] to this request. If this is not the testing you wished to receive on this specimen, please contact the [facility] Client Inquiry/ Technical Services Department to clarify the test order. We appreciate your business. Industrial Hygiene Engineer's Note: Edvin Carrero RP10 Default: A hand-written panel/profile was received from your office. In accordance with the [facility] Ambiguous Test Code Policy dated January 2003, we have completed your order by using the closest currently or formerly recognized AMA panel. We have assigned Renal Panel (10), Test Code #[id number] to this request. If this is not the testing you wished to receive on this specimen, please contact the [facility] Client Inquiry/Technical Services Department to clarify the test order. We appreciate your business. Supplemental report is available. PDF Image . [facility] 2 08/16/2024 1:26 PM DEPARTMENT ADMINISTRATOR 08/15/2024 11:00 PM DEPARTMENT ADMINISTRATOR Narrative [facility] - 08/22/2024 4:07 PM DEPARTMENT ADMINISTRATOR Performed at: [facility] Clinical / Digital [address] [place], [place] [id number] Airport Security Screener: Shayy Zimmerman MD, Phone: [phone] Lizzeth Mohan ELEVATOR CONDUCTOR LAB BLOOD ORDERABLES Performing Organization Address [facility]/ZIP Co de Phone Number [facility] * (ABNORMAL) Microsopic Examination (08/16/2024 1:26 PM DEPARTMENT ADMINISTRATOR) Leukocytes, Urine sediment 6-10(A) 0 - 5 /hpf [facility] 1 Erythrocytes, Urine sediment None seen 0 - 2 /hpf [facility] 1 Epithelial cells, Urine sediment >10(A) 0 - 10 /hpf [facility] 1 Casts, Urine sediment None seen None seen /lpf [facility] 1 Bacteria, Urine sediment None seen None seen/Few [facility] 1 08/16/2024 1:26 PM DEPARTMENT ADMINISTRATOR 08/15/2024 11:00 PM DEPARTMENT ADMINISTRATOR Narrative [facility] - 08/22/2024 4:07 PM DEPARTMENT ADMINISTRATOR Performed at: [address] [id number] Airport Security Screener: Kvng Roca PhD, Phone: [phone] Lizzeth Mohan ELEVATOR CONDUCTOR LAB BLOOD ORDERABLES Performing Organization Address [facility]/ZIP Co de Phone Number [facility] * (ABNORMAL) Renal Function Panel (RFP) (08/16/2024 1:26 PM DEPARTMENT ADMINISTRATOR) Glucose, Serum/Plasma 143(H) 70 - 99 mg/dL [...] 4.9 g/dL [facility] 1 08/16/2024 1:26 PM DEPARTMENT ADMINISTRATOR 08/15/2024 11:00 PM DEPARTMENT ADMINISTRATOR Narrative [facility] - 08/22/2024 4:07 PM DEPARTMENT ADMINISTRATOR Performed at: [address] [id number] Airport Security Screener: Kvng Roca PhD, Phone: [phone] Lizzeth Mohan NP LAB BLOOD ORDERABLES Performing Organization Address [facility] de Phone Number [facility] * (ABNORMAL) Urine Culture, Routine (08/16/2024 1:26 PM DEPARTMENT ADMINISTRATOR) Culture, Urine, Routine Final report(A) [facility] 1 08/16/2024 1:26 PM DEPARTMENT ADMINISTRATOR 08/15/2024 11:00 PM DEPARTMENT ADMINISTRATOR Comment:UR Narrative [facility] - 08/22/2024 4:07 PM DEPARTMENT ADMINISTRATOR Performed at: [address] [place] [id number] Airport Security Screener: Kvng Roca PhD, Phone: [phone] Lizzeth Mohan NP LAB BLOOD ORDERABLES Performing Organization Address [facility] Co de Phone Number [facility] * (ABNORMAL) Urinalysis, Routine W/ Reflex Microscopic (08/16/2024 1:26 PM DEPARTMENT ADMINISTRATOR) Specific gravity of Urine 1.026 1.005 - [...] cated and was performed. 08/16/2024 1:26 PM DEPARTMENT ADMINISTRATOR 08/15/2024 11:00 PM DEPARTMENT ADMINISTRATOR Narrative [facility] - 08/22/2024 4:07 PM DEPARTMENT ADMINISTRATOR Performed at: - [facility] [address] [id number] Airport Security Screener: Kvng Roca PhD, Phone: [phone] Lizzeth Mohan ELEVATOR CONDUCTOR LAB URINE ORDERABLES [facility] 1 from Last 3 Months Care Teams Aircraft Worker Relationship Specialty Start Date End Date Marcelino Gore MD [address] [place] [address] PCP - General 03/01/19
--- NOTE | 2024-10-03 16:20 | PC.NURSE ---
Green top hemolyzed. electrical laboratory technician and multiple RNs attempted to recollect lab with no success. GUERDA Bond notified and to bedside to attempt.
--- NOTE | 2024-10-03 16:54 | PC.NURSE ---
Lab called to add on urine drug screen to urine already sent down.
[2024-10-03 17:34] LABS: Amphetamine Screen Urine Negative (Negative); Barbiturate Screen Urine Negative (Negative); Benzodiazepines Screen Urine Negative (Negative); Cannabinoid Screen Urine Negative (Negative); Cocaine Screen Urine Negative (Negative); Methadone Screen Urine Negative (Negative); Opiate Screen Urine Negative (Negative); Phencyclidine Screen Urine Negative (Negative)
[2024-10-03] MEDS: SODIUM CHLORIDE 0.9% IV 1,000 ML 999 ML IV CONT (17:35)
[2024-10-03 18:20] LABS: Alanine Aminotransferase 23 U/L (6-35); Albumin Level 3.4 g/dL (3.5-5.1); Alkaline Phosphatase 45 U/L (38-126); Anion Gap 8 mmol/L (4-12); Aspartate Amino Transferase 36 U/L (14-36); Bilirubin,Total 0.9 mg/dL (0.2-1.3); Blood Urea Nitrogen 16 mg/dL (7-17); Calcium 9.1 mg/dL (8.4-10.2); Carbon Dioxide 22 mmol/L (22-30); Chloride 110 mmol/L (98-107); Estimated CRCL calculation 51 ml/min; Estimated Glomerular Filt Rate > 60; Glucose 138 mg/dL (65-110); Potassium 3.7 mmol/L (3.4-5.0); Sodium 140 mmol/L (137-145)
[2024-10-03 18:31] LABS: Troponin I 0.086 ng/mL (0.000-0.034)
[2024-10-03 18:48] LABS: Thyroid Stimulating Hormone 0.849 uIU/mL (0.465-4.680)
[2024-10-03] MEDS: SODIUM CHLORIDE 0.9% IV 1,000 ML 125 ML IV CONT (20:25)
[2024-10-03 20:26] LABS: Creatine Kinase 118 U/L (30-135)
[2024-10-03] MEDS: ACETAMINOPHEN 325 MG TABLET 650 MG PO (22:39)
[2024-10-03] MEDS: levETIRAcetam Tablet 250 MG, levETIRAcetam Tablet 500 MG 750 MG PO (22:40)
[2024-10-03] MEDS: LACOSAMIDE (*CRX) 100 MG TABLET PO (22:40)
[2024-10-03 22:56] LABS: Lactic Acid Reflex 0.8 mmol/L (0.7-2.0)
[2024-10-03 23:13] LABS: Troponin I 0.083 ng/mL (0.000-0.034)
[2024-10-04] VITALS (13 sets, daily range): BP systolic 124–151; BP diastolic 48–65; PULSE 61–98; RESP 16–20; TEMP 36.7–37.3; O2SAT 96–99; BMI 28.5
--- NOTE | 2024-10-04 02:59 | ADMGEN ---
10/03/240: This patient, Kerline Mohan, was admitted to IMU Room 205-02. Patient/family oriented to hospital policies and general routines including ID bracelet, bed and alarms, visiting hours, pain management, procedures, bathroom and other care routines, personal items, smoking policy, room service/diet, and visiting hours. Information on how to activate the Rapid Response Team has been discussed. Patient/Family are encouraged to report perceived risks to care and to ask questions if they do not understand what they are told or what they should do.
--- NOTE | 2024-10-04 04:59 | P.HP_ITS ---
H&P: HPI History of Present Illness Date/Time: 10/04/24 04:59 Chief Complaint: Seizure due to missed seizure meds Narrative: 69-year-old female with a past medical history of diabetes, hyperlipidemia, coronary artery disease, multiple vitamin deficiencies, CHF, AFib, essential hypertension, seizure disorder among other comorbidities who presented to the ER via EMS from [facility] due to seizures. The patient seizure medications were stopped a few days ago per the order of jail staff after they had a negative interaction with the patient's daughter. Daughter reported the patient had many breakthrough seizures that had not been treated. The daughter wanted patient brought in for evaluation. In triage the patient had the tonic clonic seizure lasting less than a minute. She was postictal and had a nasal trumpet inserted. She received 1 mg of Ativan. The patient's neurologist is Dr. Baca. The patient's daughter reports that the jail staff had stopped the patient's seizure medications after having a negative interaction with patient's daughter. The jail staff had actually accuse the daughter of giving the patient medications to cause a seizure. They had the patient's daughter arrested. Appears the patient was placed in jail around April 2024 after she became combative and argumentative with the daughter and the daughter felt she could no longer take care of her at home. Source of information is from ER records and physician report as well as well review of past medical records. Patient is unable to participate in history process due to baseline psychiatric condition. The patient does not have recall of the events that brought her to the hospital. But at the time of my evaluation the patient was awake sitting up in bed and pleasant but confused. She was cooperative but did seem to have difficulty understanding questions and following some directions. She denied having any pain or acute complaints. She did have a bruise noted to the medial right tongue. Review of Systems 2 Review of Systems: ROS unobtainable: Yes unobtainable due to mental status [facility] Past Medical History Medical History (Updated 10/04/24 @ 08:22 by Vira Weber DO) 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 and increased tone fingers of the left hand History of GI bleed Splenic varices Diabetic nephropathy Meckels diverticulum Duodenal ulcer Vitamin B12 deficiency Vitamin D deficiency CAD (coronary artery disease) Hyperlipidemia Type 2 diabetes mellitus Essential hypertension Seizure disorder GERD (gastroesophageal reflux disease) History of hemorrhagic cerebrovascular accident (CVA) without residual deficits Atrial fibrillation Surgical History Surgical History (Updated 10/04/24 @ 08:11 by Vira Weber DO) History of tonsillectomy and adenoidectomy Status post open reduction and internal fixation (ORIF) of fracture Left wrist and hand History of carpal tunnel release Left Family History Family History (Updated 10/04/24 @ 08:06 by Vira Weber DO) Sibling Cerebrovascular accident Hypertension Kidney disease Father Bladder cancer Heart disease Hypertension Mother Hypertension Kidney disease Social History Social History (Updated 10/04/24 @ 08:13 by Vira Weber DO) Social History: Code status: Full code Power of health care attorney for healthcare: Claudia Mohan (daughter) Smoking status: Never smoker Second hand tobacco smoke exposure: No Alcohol intake: former Alcohol use details: The patient used to on occasion drink 1 alcoholic beverage a month. Substance use: never Spiritual care concerns: No Meds Home Medications and Allergies Home Medications ?Medication ?Instructions ?Recorded ?Confirmed ?Type amlodipine 10 mg tablet 10 mg PO QAM #30 tabs 08/22/22 10/03/24 Rx atorvastatin 40 mg tablet 40 mg PO DAILY #30 tabs 08/22/22 10/03/24 Rx metoprolol tartrate 25 mg tablet 25 mg PO Q12HR #60 tabs 08/22/22 10/03/24 Rx aspirin 81 mg chewable tablet 81 mg PO DAILY@0800 #30 tabs 12/15/22 10/03/24 Rx (Children's Aspirin) fenofibrate 160 mg tablet 160 mg PO DAILY 05/02/24 10/03/24 History lacosamide 100 mg tablet 100 mg PO BID 05/02/24 10/03/24 History linagliptin 5 mg tablet (Tradjenta) 5 mg PO DAILY 05/02/24 10/03/24 History acetaminophen 325 mg tablet 650 mg PO Q12H PRN fever or pain 10/03/24 10/03/24 History cholecalciferol (vitamin D3) 1,250 1,000 unit PO DAILY 10/03/24 10/03/24 History mcg (50,000 unit) capsule fluoxetine 10 mg capsule 10 mg PO DAILY 10/03/24 10/03/24 History levetiracetam 500 mg tablet 1,000 mg PO Q12HR 10/03/24 10/03/24 History (Keppra) sennosides 8.6 mg tablet (senna) 8.6 mg PO DAILY PRN constipation 10/03/24 10/03/24 History insulin glargine 100 unit/mL (3 20 unit subcut QHS 10/04/24 10/04/24 History mL) subcutaneous pen (Basaglar KwikPen U-100 Insulin) Allergies Allergy/AdvReac Type Severity Reaction Status Date / Time metformin Allergy Unknown Unknown Verified 10/04/24 03:19 aspartame Allergy unknown Verified 10/04/24 03:19 insulin glargine (From Allergy unknown Verified 10/04/24 03:19 Lantus U-100 Insulin) morphine Allergy Unknown Verified 06/13/24 12:50 Vital Signs Vital Signs - 24 hr 10/03/24 12:34 10/03/24 13:09 10/03/24 13:44 Temperature 98.3 F Pulse Rate 137 H 90 79 Respiratory Rate 20 24 H Blood Pressure 149/86 H 140/66 Pulse Oximetry 100 97 Oxygen Delivery Room Air 10/03/24 13:45 10/03/24 16:54 10/03/24 18:40 Temperature Pulse Rate 80 76 Respiratory Rate 16 16 Blood Pressure 149/75 H 146/64 H Pulse Oximetry 97 97 96 Oxygen Delivery Room Air 10/03/24 19:49 10/03/24 21:26 10/03/24 22:20 Temperature 98.6 F Pulse Rate 75 74 79 Respiratory Rate 20 22 H 16 Blood Pressure 153/60 H 156/70 H 150/68 H Pulse Oximetry 97 94 97 Oxygen Delivery 10/03/24 23:00 10/04/24 00:00 10/04/24 00:00 Temperature 98.3 F Pulse Rate 72 76 Respiratory Rate 18 Blood Pressure 143/65 H Pulse Oximetry 98 Oxygen Delivery Room Air 10/04/24 02:00 10/04/24 04:00 10/04/24 04:00 Temperature 99.2 F Pulse Rate 69 72 61 Respiratory Rate 18 Blood Pressure 141/57 H Pulse Oximetry 96 Oxygen Delivery 10/04/24 04:00 Temperature Pulse Rate Respiratory Rate Blood Pressure Pulse Oximetry Oxygen Delivery Room Air Exam 2 Narrative: Weight 82.5 kg BMI 28.5 Const: Other: Chronically debilitated but well-developed well-nourished, no acute distress, sitting up in bed head of the bed at 45? HENMT: Other: Mucous membranes are moist, no oral pharyngeal erythema, edentulous in upper and lower jaw Eyes: Other: Pupils are slightly irregular with elongated shape to the left pupil right pupil is normal circular appearance, both eyes are equally reactive, patient seems to have some mild ptosis bilaterally Neck: Other: No JVD, no lymphadenopathy, IV in the right EJ Resp: Other: Clear to auscultation bilaterally, no increased work of breathing Cardio: Other: Regular rate, regular rhythm, 2+ bilateral radial pedal pulses GI: Other: Soft, nontender, nondistended, positive bowel sounds : Other: Depends in place Skin: Other: No pallor, non jaundice Neuro: Other: Alert oriented self in the fact that she is in the hospital, she is hard of hearing, no obvious facial droop, she is slow to respond, as poor fine motor skills Extrem: Other: 5/5 apparel patternmaker strength on the right, 4 5 apparel patternmaker strength on the left patient has joint deformities of the right hands with flexion contractures of the proximal PIP joint and extensions 3 of 4 D IP joints, no clubbing, cyanosis or edema Psych: Other: Pleasantly confused but cooperative, poor judgment insight, repetitive questioning and short attention span H&P: Results Labs Labs: Laboratory Tests 10/03/24 13:37 10/03/24 17:59 10/03/24 10/03/24 10/03/24 13:07 13:36 13:37 WBC 8.3 RBC 4.74 Hgb 13.9 Hct 46.1 MCV 97.3 MCH 29.3 MCHC 30.2 L RDW 13.3 Plt Count 297 MPV 11.4 H Immature Gran % (Auto) 0.6 H Neut % (Auto) 80.0 H Lymph % (Auto) 13.3 L Franklin % (Auto) 5.2 Eos % (Auto) 0.1 Baso % (Auto) 0.8 Lymph # (Auto) 1.11 Franklin # (Auto) 0.4 Eos # (Auto) 0.0 Baso # (Auto) 0.1 Abs Immat Gran (auto) 0.05 H Absolute Neuts (auto) 6.7 Absolute Nucleated RBC 0.000 Nucleated RBC % 0.0 PT 14.2 INR 1.1 APTT 21.8 L Sodium Potassium Chloride Carbon Dioxide Anion Gap BUN Creatinine Estim Creat Clear Calc Estimated GFR Glucose POC Capillary Glucose 184 H Lactic Acid Calcium Total Bilirubin AST ALT Alkaline Phosphatase Total Creatine Kinase Troponin I Total Protein Albumin TSH Urine Color Dark yellow Urine Appearance Clear Urine pH 5.0 Ur Specific Davis 1.018 Urine Protein 2+ H Urine Glucose (UA) Negative Urine Ketones Trace H Ur Blood (Man) Negative Urine Nitrate Negative Urine Bilirubin Negative Urine Urobilinogen 0.2 Add Ur Microanalysis Reviewed Leukocyte Esterase Rfl Negative Urine RBC 0-2 Urine WBC 0-5 Ur Squamous Epith Cells Occasional Urine Bacteria None seen Urine Casts 6-10 Hyaline Casts 1-2 Urine Mucus Present Urine Opiates Screen Negative Urine Methadone Screen Negative Ur Barbiturates Screen Negative Ur Phencyclidine Scrn Negative Ur Amphetamine Screen Negative U Benzodiazepines Scrn Negative Urine Cocaine Screen Negative U Cannabinoids Screen Negative 10/03/24 10/03/24 17:59 22:33 WBC RBC Hgb Hct MCV MCH MCHC RDW Plt Count MPV Immature Gran % (Auto) Neut % (Auto) Lymph % (Auto) Franklin % (Auto) Eos % (Auto) Baso % (Auto) Lymph # (Auto) Franklin # (Auto) Eos # (Auto) Baso # (Auto) Abs Immat Gran (auto) Absolute Neuts (auto) Absolute Nucleated RBC Nucleated RBC % PT INR APTT Sodium 140 Potassium 3.7 Chloride 110 H Carbon Dioxide 22 Anion Gap 8 BUN 16 Creatinine 0.91 Estim Creat Clear Calc 51 Estimated GFR > 60 Glucose 138 H POC Capillary Glucose Lactic Acid 0.8 Calcium 9.1 Total Bilirubin 0.9 AST 36 ALT 23 Alkaline Phosphatase 45 Total Creatine Kinase 118 Troponin I 0.086 H* 0.083 H* Total Protein 6.0 L Albumin 3.4 L TSH 0.849 Urine Color Urine Appearance Urine pH Ur Specific Davis Urine Protein Urine Glucose (UA) Urine Ketones Ur Blood (Man) Urine Nitrate Urine Bilirubin Urine Urobilinogen Add Ur Microanalysis Leukocyte Esterase Rfl Urine RBC Urine WBC Ur Squamous Epith Cells Urine Bacteria Urine Casts Hyaline Casts Urine Mucus Urine Opiates Screen Urine Methadone Screen Ur Barbiturates Screen Ur Phencyclidine Scrn Ur Amphetamine Screen U Benzodiazepines Scrn Urine Cocaine Screen U Cannabinoids Screen Impressions Head CT 10/03/24 14:13 IMPRESSION: No acute intracranial findings. EKG: Normal sinus rhythm with first-degree AV block, left ventricular hypertrophy with ST T-wave changes, anterior SD age indeterminate inferior SD probably old All imaging and EKGs personally reviewed and interpreted. And unless stated otherwise agree with radiologic and cardiology interpretation. 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 Patient has been resumed on her home seizure meds. Initially the ER that ordered Keppra 750 mg b.i.d. but on the patient's med rec this is 1000 mg twice daily. Dose has been changed to 1000 mg twice daily. Will also continue patient's home Lacoamide. The patient has been placed on seizure precautions. Will monitor neuro checks closely. Will provide p.r.n. Ativan if prolonged seizures. Neurology has been consulted. The patient had mildly elevated troponin but troponin profile is completely flat. No evidence of acute myocardial ischemia. Patient is not reporting any chest pain. Shipping monitor on telemetry. Patient has type 2 diabetes mellitus. Patient is evidently on Lantus at the jail. She is currently hyperglycemic. Will decrease the patient's Lantus dose by 5 units a day and monitor closely. Will place on moderate sliding scale insulin with Accu-Cheks a.c. HS and hypoglycemia protocol. Patient does have essential hypertension. Blood pressures are within expected ranges. Will resume patient's home antihypertensives. The patient currently is in sinus rhythm but reportedly has a history of AFib. She is not a candidate for anticoagulation or DVT prophylaxis with pharmacologic methods given her history of hemorrhagic CVA in prior GI bleeds. SCDs have been ordered. Patient has been admitted as observation status. Quality VTE Prophylaxis VTE prophylaxis: mechanical ordered (SCDs) Hospitalist [facility] Advance Care Plan I have confirmed that the patient's Advanced Care Plan is present, code status is documented, or surrogate decision maker is listed in patient medical record.: Yes Medication Reconciliation I have utilized all available resources to obtain, update and review the patients current medications (includes all prescriptions, OTC, herbals, cannabis, and nutritional supplements).: Yes
[2024-10-04] MEDS: SODIUM CHLORIDE 0.9% IV 1,000 ML 125 ML IV CONT (05:40)
[2024-10-04 08:26] LABS: Glucose Point of Care 172 mg/dl (65-105)
[2024-10-04] MEDS: FENOFIBRATE 160 MG TABLET PO (08:34)
[2024-10-04] MEDS: ATORVASTATIN 40 MG TABLET PO (08:35)
[2024-10-04] MEDS: LACOSAMIDE (*CRX) 100 MG TABLET PO ×2 (08:36→20:47)
[2024-10-04] MEDS: METOPROLOL TARTRATE 25 MG TABLET PO ×2 (08:36→20:48)
[2024-10-04] MEDS: FLUoxetine HCL 10 MG CAPSULE PO (08:36)
[2024-10-04] MEDS: amLODIPine BESYLATE 10 MG TABLET PO (08:36)
[2024-10-04] MEDS: ASPIRIN 81 MG CHEWABLE TABLET PO (08:36)
[2024-10-04] MEDS: SITagliptin PHOSPHATE 100 MG TABLET PO (08:36)
[2024-10-04] MEDS: levETIRAcetam 500 MG TABLET 1000 MG PO ×2 (08:50→20:47)
[2024-10-04 10:11] LABS: Troponin I 0.032 ng/mL (0.000-0.034)
[2024-10-04 11:37] LABS: Glucose Point of Care 115 mg/dl (65-105)
--- NOTE | 2024-10-04 12:47 | WPDNEURCNPN ---
Consult date: 10/04/24 HPI: Kerline Mohan is a 69 year old female Admitted to the hospital through the emergency room with a history of having seizure disorder any information that more recently her physician took her off the anticonvulsants. Patient's daughter is very concerned about the possibility of recurrence of seizure at the time of initial eval in the emergency room she was awake alert oriented x1 was not complaining of any pain long term has been withholding patient's medication and patient when evaluated in the triage and then brought back to the room had a tonic clonic seizure lasting for 1minutes subsequently postictal when nasal trumpet was inserted and she received 1mg of Ativan she has been followed by Dr. Arora man but has not taken Keppra although course amide for several days. Her other medications included Farxiga 10mg daily, insulin 25units at HS, and lispro 2 to 10 units subcu t.i.d. with meals, lacosamide 100mg twice a Rosy Mitchell 5mg daily, she is allergic to morphine, she has ongoing history of 1. Atrial fibrillation 2. Coronary artery disease 3. Hypertension 4. Hyperlipidemia 5. Type 2 diabetes mellitus 6. History of hemorrhagic stroke without residual deficit and history of vitamin D and B12 deficiencies. She is never a smoker, exam in the emergency room grossly nonfocal, vital signs tone, CBC normal, BMP normal, routine lab studies negative including a drug screen, initial CT scan of the head negative for the bleed EKG without atrial fibrillation, [facility] Past Medical History Medical History (Updated 10/04/24 @ 08:22 by Vira Weber DO) 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 and increased tone fingers of the left hand History of GI bleed Splenic varices Diabetic nephropathy Meckels diverticulum Duodenal ulcer Vitamin B12 deficiency Vitamin D deficiency CAD (coronary artery disease) Hyperlipidemia Type 2 diabetes mellitus Essential hypertension Seizure disorder GERD (gastroesophageal reflux disease) History of hemorrhagic cerebrovascular accident (CVA) without residual deficits Atrial fibrillation Surgical History Surgical History (Updated 10/04/24 @ 08:11 by Vira Weber DO) History of tonsillectomy and adenoidectomy Status post open reduction and internal fixation (ORIF) of fracture Left wrist and hand History of carpal tunnel release Left Family History Family History (Updated 10/04/24 @ 08:06 by Vira Weber DO) Sibling Cerebrovascular accident Hypertension Kidney disease Father Bladder cancer Heart disease Hypertension Mother Hypertension Kidney disease Social History Social History (Updated 10/04/24 @ 08:13 by Vira Weber DO) Social History: Code status: Full code Power of inpatient services director for healthcare: Claudia Mohan (daughter) Smoking status: Never smoker Second hand tobacco smoke exposure: No Alcohol intake: former Alcohol use details: The patient used to on occasion drink 1 alcoholic beverage a month. Substance use: never Spiritual care concerns: No Meds Home Medications and Allergies Home Medications ?Medication ?Instructions ?Recorded ?Confirmed ?Type amlodipine 10 mg tablet 10 mg PO QAM #30 tabs 08/22/22 10/03/24 Rx atorvastatin 40 mg tablet 40 mg PO DAILY #30 tabs 08/22/22 10/03/24 Rx metoprolol tartrate 25 mg tablet 25 mg PO Q12HR #60 tabs 08/22/22 10/03/24 Rx aspirin 81 mg chewable tablet 81 mg PO DAILY@0800 #30 tabs 12/15/22 10/03/24 Rx (Children's Aspirin) fenofibrate 160 mg tablet 160 mg PO DAILY 05/02/24 10/03/24 History lacosamide 100 mg tablet 100 mg PO BID 05/02/24 10/03/24 History linagliptin 5 mg tablet (Tradjenta) 5 mg PO DAILY 05/02/24 10/03/24 History acetaminophen 325 mg tablet 650 mg PO Q12H PRN fever or pain 10/03/24 10/03/24 History cholecalciferol (vitamin D3) 1,250 1,000 unit PO DAILY 10/03/24 10/03/24 History mcg (50,000 unit) capsule fluoxetine 10 mg capsule 10 mg PO DAILY 10/03/24 10/03/24 History levetiracetam 500 mg tablet 1,000 mg PO Q12HR 10/03/24 10/03/24 History (Keppra) sennosides 8.6 mg tablet (senna) 8.6 mg PO DAILY PRN constipation 10/03/24 10/03/24 History insulin glargine 100 unit/mL (3 20 unit subcut QHS 10/04/24 10/04/24 History mL) subcutaneous pen (Basaglar KwikPen U-100 Insulin) Allergies Allergy/AdvReac Type Severity Reaction Status Date / Time metformin Allergy Unknown Unknown Verified 10/04/24 03:19 aspartame Allergy unknown Verified 10/04/24 03:19 insulin glargine (From Allergy unknown Verified 10/04/24 03:19 Lantus U-100 Insulin) morphine Allergy Unknown Verified 06/13/24 12:50 Vital Signs Vital Signs - 24 hr 10/03/24 13:09 10/03/24 13:44 10/03/24 13:45 Temperature Pulse Rate 90 79 Respiratory Rate 24 H Blood Pressure 140/66 Pulse Oximetry 97 97 Oxygen Delivery Room Air 10/03/24 16:54 10/03/24 18:40 10/03/24 19:49 Temperature Pulse Rate 80 76 75 Respiratory Rate 16 16 20 Blood Pressure 149/75 H 146/64 H 153/60 H Pulse Oximetry 97 96 97 Oxygen Delivery 10/03/24 21:26 10/03/24 22:20 10/03/24 23:00 Temperature 37.0 C Pulse Rate 74 79 Respiratory Rate 22 H 16 Blood Pressure 156/70 H 150/68 H Pulse Oximetry 94 97 Oxygen Delivery Room Air 10/04/24 00:00 10/04/24 00:00 10/04/24 02:00 Temperature 36.8 C Pulse Rate 72 76 69 Respiratory Rate 18 Blood Pressure 143/65 H Pulse Oximetry 98 Oxygen Delivery 10/04/24 04:00 10/04/24 04:00 10/04/24 04:00 Temperature 37.3 C Pulse Rate 72 61 Respiratory Rate 18 Blood Pressure 141/57 H Pulse Oximetry 96 Oxygen Delivery Room Air 10/04/24 06:00 10/04/24 07:50 10/04/24 08:36 Temperature 37.2 C Pulse Rate 77 70 94 Respiratory Rate 16 Blood Pressure 151/61 H Pulse Oximetry 99 Oxygen Delivery 10/04/24 11:42 Temperature 37.2 C Pulse Rate 65 Respiratory Rate 20 Blood Pressure 124/48 L Pulse Oximetry 97 Oxygen Delivery Results Labs 10/03/24 13:37 10/03/24 17:59 Labs: Short CBC 10/03/24 Range/Units 13:37 WBC 8.3 (4.5-10.0) K/mm3 Hgb 13.9 (12.0-15.0) g/dL Hct 46.1 (37.0-47.0) % Plt Count 297 (150-375) k/mm3 BMP 10/03/24 17:59 Sodium 140 Potassium 3.7 Chloride 110 H Carbon Dioxide 22 BUN 16 Creatinine 0.91 Glucose 138 H Calcium 9.1 Cardiac Enzymes 10/03/24 10/03/24 10/04/24 Range/Units 17:59 22:33 09:00 Total Creatine Kinase 118 (30-135) U/L Troponin I 0.086 H* 0.083 H* 0.032 (0.000-0.034) ng/mL Liver Function 10/03/24 Range/Units 17:59 Total Bilirubin 0.9 (0.2-1.3) mg/dL AST 36 (14-36) U/L ALT 23 (6-35) U/L Alkaline Phosphatase 45 (38-126) U/L Albumin 3.4 L (3.5-5.1) g/dL Urine 10/03/24 Range/Units 13:37 Urine Color Dark yellow (Yellow) Urine Appearance Clear (Clear) Urine pH 5.0 (5.0-9.0) Ur Specific Hardin 1.018 (1.001-1.035) Urine Protein 2+ H (Negative) mg/dL Urine Glucose (UA) Negative (Negative) mg/dL
--- NOTE | 2024-10-04 14:14 | P.CONNEU_ITS ---
Assessment and Plan Assessment and plan (1) Seizure disorder, atonic: Code(s): G40.409 - Other generalized epilepsy and epileptic syndromes, not intractable, without status epilepticus Status: Acute (2) Vitamin D deficiency: Code(s): E55.9 - Vitamin D deficiency, unspecified Status: Acute (3) Vitamin B12 deficiency: Code(s): E53.8 - Deficiency of other specified B group vitamins Status: Acute Plan 1. Seizure disorder by history with confusion regarding the continuation of the anticonvulsant particularly wants to continue the medication though she has been taken off the medication. Even though she has been taking Keppra in the past along with the lacosamide and other medications as well 2. History of vitamin-D and B12 deficiency. Would like to obtain the routine EEG before any change in the medications are made. Consult date: 10/04/24 HPI: Kerline Mohan is a 69 year old female Admitted to the hospital through the emergency room with a history of having seizure disorder and further information that most recently her physician took her off the anticonvulsant. Patient's daughter was very concerned about the possibility of recurrence of the seizure. At the time of initial evaluation in the emergency room she was awake alert oriented x1, was not complaining of any pain. [facility] had been withholding patient's medication and when the patient was evaluated in the ER and then the brought back to the room she had a tonic clonic seizure lasting for about 1minutes subsequently she was notedly postictal, a nasal cannula was inserted and she received 1mg of Ativan she has been followed by her physician but has not taking her Keppra for the last several days. Her other medications included Farxiga 10mg daily, insulin 25units at night, list probe [id number] subcu t.i.d. with meals, lacosamide 100mg twice a day, she is allergic to morphine she has ongoing history of 1. Atrial fibrillation 2. Coronary artery disease hypertension 4. Hyperlipidemia 5 type 2 diabetes mellitus and 6. Hemorrhagic stroke in the past without any residual deficit and 7. History of vitamin D and B12 deficiencies. She is not a smoker ,on initial exam in the emergency room her exam was grossly normal and nonfocal vital signs were normal ,CBC was normal ,BMP was normal , lab studies were negative including a drug screen ,initial CT scan of the head was negative for the bleed ,EKG was without any atrial fibrillation. Review of Systems 2 Review of Systems: All systems reviewed & are unremarkable except as noted in HPI and below PMFSH Past Medical History Medical History 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 and increased tone fingers of the left hand History of GI bleed Splenic varices Diabetic nephropathy Meckels diverticulum Duodenal ulcer Vitamin B12 deficiency Vitamin D deficiency CAD (coronary artery disease) Hyperlipidemia Type 2 diabetes mellitus Essential hypertension Seizure disorder GERD (gastroesophageal reflux disease) History of hemorrhagic cerebrovascular accident (CVA) without residual deficits Atrial fibrillation Surgical History Surgical History History of tonsillectomy and adenoidectomy Status post open reduction and internal fixation (ORIF) of fracture Left wrist and hand History of carpal tunnel release Left Family History Family History Sibling Cerebrovascular accident Hypertension Kidney disease Father Bladder cancer Heart disease Hypertension Mother Hypertension Kidney disease Social History Social History Social History: Code status: Full code Power of commonwealth attorney for healthcare: Claudia Mohan (daughter) Smoking status: Never smoker Second hand tobacco smoke exposure: No Alcohol intake: former Alcohol use details: The patient used to on occasion drink 1 alcoholic beverage a month. Substance use: never Spiritual care concerns: No Meds Home Medications and Allergies Home Medications ?Medication ?Instructions ?Recorded ?Confirmed ?Type amlodipine 10 mg tablet 10 mg PO QAM #30 tabs 08/22/22 10/03/24 Rx atorvastatin 40 mg tablet 40 mg PO DAILY #30 tabs 08/22/22 10/03/24 Rx metoprolol tartrate 25 mg tablet 25 mg PO Q12HR #60 tabs 08/22/22 10/03/24 Rx aspirin 81 mg chewable tablet 81 mg PO DAILY@0800 #30 tabs 12/15/22 10/03/24 Rx (Children's Aspirin) fenofibrate 160 mg tablet 160 mg PO DAILY 05/02/24 10/03/24 History lacosamide 100 mg tablet 100 mg PO BID 05/02/24 10/03/24 History linagliptin 5 mg tablet (Tradjenta) 5 mg PO DAILY 05/02/24 10/03/24 History acetaminophen 325 mg tablet 650 mg PO Q12H PRN fever or pain 10/03/24 10/03/24 History cholecalciferol (vitamin D3) 1,250 1,000 unit PO DAILY 10/03/24 10/03/24 History mcg (50,000 unit) capsule fluoxetine 10 mg capsule 10 mg PO DAILY 10/03/24 10/03/24 History levetiracetam 500 mg tablet 1,000 mg PO Q12HR 10/03/24 10/03/24 History (Keppra) sennosides 8.6 mg tablet (senna) 8.6 mg PO DAILY PRN constipation 10/03/24 10/03/24 History insulin glargine 100 unit/mL (3 20 unit subcut QHS 10/04/24 10/04/24 History mL) subcutaneous pen (Basaglar KwikPen U-100 Insulin) Allergies Allergy/AdvReac Type Severity Reaction Status Date / Time metformin Allergy Unknown Unknown Verified 10/04/24 03:19 aspartame Allergy unknown Verified 10/04/24 03:19 insulin glargine (From Allergy unknown Verified 10/04/24 03:19 Lantus U-100 Insulin) morphine Allergy Unknown Verified 06/13/24 12:50 Vital Signs Vital Signs - 24 hr 10/03/24 16:54 10/03/24 18:40 10/03/24 19:49 Temperature Pulse Rate 80 76 75 Respiratory Rate 16 16 20 Blood Pressure 149/75 H 146/64 H 153/60 H Pulse Oximetry 97 96 97 Oxygen Delivery 10/03/24 21:26 10/03/24 22:20 10/03/24 23:00 Temperature 37.0 C Pulse Rate 74 79 Respiratory Rate 22 H 16 Blood Pressure 156/70 H 150/68 H Pulse Oximetry 94 97 Oxygen Delivery Room Air 10/04/24 00:00 10/04/24 00:00 10/04/24 02:00 Temperature 36.8 C Pulse Rate 72 76 69 Respiratory Rate 18 Blood Pressure 143/65 H Pulse Oximetry 98 Oxygen Delivery 10/04/24 04:00 10/04/24 04:00 10/04/24 04:00 Temperature 37.3 C Pulse Rate 72 61 Respiratory Rate 18 Blood Pressure 141/57 H Pulse Oximetry 96 Oxygen Delivery Room Air 10/04/24 06:00 10/04/24 07:50 10/04/24 08:00 Temperature 37.2 C Pulse Rate 77 70 69 Respiratory Rate 16 Blood Pressure 151/61 H Pulse Oximetry 99 Oxygen Delivery 10/04/24 08:00 10/04/24 08:36 10/04/24 10:31 Temperature Pulse Rate 69 94 71 Respiratory Rate Blood Pressure Pulse Oximetry Oxygen Delivery 10/04/24 11:42 10/04/24 12:00 10/04/24 12:00 Temperature 37.2 C Pulse Rate 65 72 72 Respiratory Rate 20 Blood Pressure 124/48 L Pulse Oximetry 97 Oxygen Delivery Exam 2 Narrative: exam today revealed her to be awake alert cooperative in no obvious acute distress, head was normocephalic with no cranial bruits, ear nose throat examination was normal, neck was supple with no meningeal signs no cervical bruit, heart was regular with no murmur, lungs were clear to auscultation without any rhonchi or crepitations, abdomen was soft with no organomegaly, neurologically she was awake alert she knew that she is in the hospital but she was unable to explain why she is in the hospital her speech was not dysphasic not dysarthric he followed the instructions fairly well, pupils were round regular feels the vision full to threat stimuli, extraocular movements are full with no nystagmus, facial sensation was intact face was symmetrical tongue was midline uvula was midline motor examination revealed her to have fairly symmetrical strength with no cogwheeling rigidity flex was symmetrical and plantars were down Results Labs 10/03/24 13:37 10/03/24 17:59 Labs: BMP 10/03/24 17:59 Sodium 140 Potassium 3.7 Chloride 110 H Carbon Dioxide 22 BUN 16 Creatinine 0.91 Glucose 138 H Calcium 9.1 Cardiac Enzymes 10/03/24 10/03/24 10/04/24 Range/Units 17:59 22:33 09:00 Total Creatine Kinase 118 (30-135) U/L Troponin I 0.086 H* 0.083 H* 0.032 (0.000-0.034) ng/mL Liver Function 10/03/24 Range/Units 17:59 Total Bilirubin 0.9 (0.2-1.3) mg/dL AST 36 (14-36) U/L ALT 23 (6-35) U/L Alkaline Phosphatase 45 (38-126) U/L Albumin 3.4 L (3.5-5.1) g/dL
--- NOTE | 2024-10-04 15:43 | PM.IMPN ---
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 driver use Qualified Code(s): E11.65 - Type 2 diabetes mellitus with hyperglycemia; Z79.4 - care home (current) use of insulin Code(s): E11.65 - Type 2 diabetes mellitus with hyperglycemia Status: Acute Plan Seizure daughter noted patient was taken off her meds in [place] for more than 2 days resulting in seizure no seizure since admission She also noted patient might have had another episode prior to to the this one and she was on her meds then Increase Keppra to 100omg bid, contineu Locasamide EEG ordered, monitor neurology consulted Elevated troponin No chest pain and troponin is normal now DM2 SSI with accucheks and monitor HTN titrate home meds with clinical course Paroxysmal Afib Not a candidate for AC given history of hemorrhagic CVA DVT prophylaxis on Sq Lovenox Subjective Date/time seen: 10/04/24 15:43 Interval history: Comfortable at bedside Review of Systems Review of Systems: ROS unobtainable: Yes unobtainable due to mental status Exam Narrative: Weight 82.5 kg BMI 28.5 Const: Other: Chronically debilitated but well-developed well-nourished, no acute distress, sitting up in bed head of the bed at 45? HENMT: Other: Mucous membranes are moist, no oral pharyngeal erythema, edentulous in upper and lower jaw Eyes: Other: Pupils are slightly irregular with elongated shape to the left pupil right pupil is normal circular appearance, both eyes are equally reactive, patient seems to have some mild ptosis bilaterally Neck: Other: No JVD, no lymphadenopathy, IV in the right EJ Resp: Other: Clear to auscultation bilaterally, no increased work of breathing Cardio: Other: Regular rate, regular rhythm, 2+ bilateral radial pedal pulses GI: Other: Soft, nontender, nondistended, positive bowel sounds : Other: Depends in place Skin: Other: No pallor, non jaundice Neuro: Other: Alert oriented self in the fact that she is in the hospital, she is hard of hearing, no obvious facial droop, she is slow to respond, as poor fine motor skills Extrem: Other: 5/5 program administrator strength on the right, 4 5 program administrator strength on the left patient has joint deformities of the right hands with flexion contractures of the proximal PIP joint and extensions 3 of 4 D IP joints, no clubbing, cyanosis or edema Psych: Other: Pleasantly confused but cooperative, poor judgment insight, repetitive questioning and short attention span Objective Data Vital Signs Vital Signs: Vital Signs - 24 hr 10/03/24 16:54 10/03/24 18:40 10/03/24 19:49 Temperature Pulse Rate 80 76 75 Respiratory Rate 16 16 20 Blood Pressure 149/75 H 146/64 H 153/60 H Pulse Oximetry 97 96 97 Oxygen Delivery 10/03/24 21:26 10/03/24 22:20 10/03/24 23:00 Temperature 98.6 F Pulse Rate 74 79 Respiratory Rate 22 H 16 Blood Pressure 156/70 H 150/68 H Pulse Oximetry 94 97 Oxygen Delivery Room Air 10/04/24 00:00 10/04/24 00:00 10/04/24 02:00 Temperature 98.3 F Pulse Rate 72 76 69 Respiratory Rate 18 Blood Pressure 143/65 H Pulse Oximetry 98 Oxygen Delivery 10/04/24 04:00 10/04/24 04:00 10/04/24 04:00 Temperature 99.2 F Pulse Rate 72 61 Respiratory Rate 18 Blood Pressure 141/57 H Pulse Oximetry 96 Oxygen Delivery Room Air 10/04/24 06:00 10/04/24 07:50 10/04/24 08:00 Temperature 98.9 F Pulse Rate 77 70 69 Respiratory Rate 16 Blood Pressure 151/61 H Pulse Oximetry 99 Oxygen Delivery 10/04/24 08:00 10/04/24 08:36 10/04/24 10:31 Temperature Pulse Rate 69 94 71 Respiratory Rate Blood Pressure Pulse Oximetry Oxygen Delivery 10/04/24 11:42 10/04/24 12:00 10/04/24 12:00 Temperature 99.0 F Pulse Rate 65 72 72 Respiratory Rate 20 Blood Pressure 124/48 L Pulse Oximetry 97 Oxygen Delivery Intake/Output Intake/Output: Intake & Output 10/01/24 10/02/24 10/03/24 10/04/24 23:59 23:59 23:59 23:59 Intake Total 1100 2300 Output Total 25 Balance 1075 2300 Meds/Results Medications: Active Medications Generic Name Dose Route Start Last Admin Trade Name Freq PRN Reason Stop Dose Admin Acetaminophen 650 mg 10/03/24 20:13 10/03/24 22:39 Acetaminophen 325 Mg Tablet PO 650 mg Q4H PRN Administration Mild Pain (1-3) or Fever Amlodipine Besylate 10 mg 10/04/24 09:00 10/04/24 08:36 Amlodipine Besylate 10 Mg Tablet PO 10 mg QAM SANDEE Administration Aspirin 81 mg 10/04/24 08:00 10/04/24 08:36 Aspirin 81 Mg Chewable Tablet PO 81 mg DAILY@0800 SANDEE Administration Atorvastatin Calcium 40 mg 10/04/24 09:00 10/04/24 08:35 Atorvastatin 40 Mg Tablet PO 40 mg DAILY SANDEE Administration Dextrose 12.5 gm 10/04/24 07:59 Dextrose 50% 25 Gm/50 Ml Syringe IV PUSH PRN PRN Hypoglycemia Protocol Fenofibrate 160 mg 10/04/24 09:00 10/04/24 08:34 Fenofibrate 160 Mg Tablet PO 160 mg DAILY SANDEE Administration Fluoxetine HCl 10 mg 10/04/24 09:00 10/04/24 08:36 Fluoxetine Hcl 10 Mg Capsule PO 10 mg DAILY SANDEE Administration Glucagon 1 mg 10/04/24 07:59 Glucagon For Inj 1 Mg Vial IM PRN PRN Hypoglycemia Protocol Glucose 15 gm 10/04/24 07:59 Glucose Oral Gel 15 Gm Of Glucse In 37.5 Gm Tube PO PRN PRN Hypoglycemia Protocol Sodium Chloride 1,000 mls @ 125 mls/hr 10/03/24 20:15 10/04/24 13:40 Normal Saline Iv IV CONT Infused .Q8H SANDEE Infusion Dextrose 1,000 mls @ 100 mls/hr 10/04/24 07:59 Dextrose 5% 1,000 Ml IVPB PRN PRN Hypoglycemia Protocol Insulin Aspart 3 - 6 units 10/04/24 08:00 10/04/24 11:56 Insulin Aspart (*Bkc) 100 Units/Ml SUB-Q Not Given TIDWM [facility] Protocol Insulin Glargine 15 units 10/04/24 21:00 Insulin Glargine (*Bkc) 100 Units/Ml SUB-Q QHS [facility] Lacosamide 100 mg 10/03/24 21:00 10/04/24 08:36 Lacosamide (*Crx) 100 Mg Tablet PO 100 mg Q12HR SANDEE Administration Levetiracetam 1,000 mg 10/04/24 09:00 10/04/24 08:50 Levetiracetam 500 Mg Tablet PO 1,000 mg Q12HR SANDEE Administration Metoprolol Tartrate 25 mg 10/04/24 09:00 10/04/24 08:36 Metoprolol Tartrate 25 Mg Tablet PO 25 mg Q12HR SANDEE Administration Ondansetron HCl 4 mg 10/03/24 20:13 Ondansetron Inj 4 Mg/2 Ml Vial IV PUSH Q4H PRN Nausea Senna 8.6 mg 10/04/24 07:56 Sennosides 8.6 Mg Tablet PO DAILY PRN constipation Sitagliptin Phosphate 100 mg 10/04/24 09:00 10/04/24 08:36 Sitagliptin Phosphate 100 Mg Tablet PO 11/03/24 08:59 100 mg DAILY SANDEE Administration Radiology Results: ITS Impressions Head CT 10/03/24 14:13 IMPRESSION: No acute intracranial findings. Labs Labs: Laboratory Results - last 24 hr 10/03/24 10/03/24 10/03/24 13:36 17:59 22:33 Sodium 140 Potassium 3.7 Chloride 110 H Carbon Dioxide 22 Anion Gap 8 BUN 16 Creatinine 0.91 Estim Creat Clear Calc 51 Estimated GFR > 60 Glucose 138 H POC Capillary Glucose Lactic Acid 0.8 Calcium 9.1 Total Bilirubin 0.9 AST 36 ALT 23 Alkaline Phosphatase 45 Total Creatine Kinase 118 Troponin I 0.086 H* 0.083 H* Total Protein 6.0 L Albumin 3.4 L TSH 0.849 Urine Opiates Screen Negative Urine Methadone Screen Negative Ur Barbiturates Screen Negative Ur Phencyclidine Scrn Negative Ur Amphetamine Screen Negative U Benzodiazepines Scrn Negative Urine Cocaine Screen Negative U Cannabinoids Screen Negative 10/04/24 10/04/24 10/04/24 07:54 09:00 11:34 Sodium Potassium Chloride Carbon Dioxide Anion Gap BUN Creatinine Estim Creat Clear Calc Estimated GFR Glucose POC Capillary Glucose 172 H 115 H Lactic Acid Calcium Total Bilirubin AST ALT Alkaline Phosphatase Total Creatine Kinase Troponin I 0.032 Total Protein Albumin TSH Urine Opiates Screen Urine Methadone Screen Ur Barbiturates Screen Ur Phencyclidine Scrn Ur Amphetamine Screen U Benzodiazepines Scrn Urine Cocaine Screen U Cannabinoids Screen Quality VTE Prophylaxis VTE prophylaxis: mechanical ordered (SCDs)
[2024-10-04 15:58] LABS: Glucose Point of Care 137 mg/dl (65-105)
[2024-10-04 20:27] LABS: Glucose Point of Care 163 mg/dl (65-105)
[2024-10-04] MEDS: INSULIN GLARGINE (*BKC) 100 UNITS/ML 15 UNITS SUB-Q (22:09)
[2024-10-05] VITALS (8 sets, daily range): BP systolic 125–165; BP diastolic 52–78; PULSE 59–96; RESP 18; TEMP 36.3–36.9; O2SAT 95–99
[2024-10-05 04:36] LABS: Basophils Absolute Auto 0.1 K/mm3 (0.0-0.1); Eosinophils Absolute Auto 0.1 K/mm3 (0-0.3); Eosinophils Percent Auto 1.6 % (0-4.4); Hematocrit 40.5 % (37.0-47.0); Hemoglobin 12.8 g/dL (12.0-15.0); Immature Granulocyte Absolute 0.03 K/mm3 (0.00-0.031); Immature Granulocyte Percent A 0.4 % (0-0.5); Lymphocytes Absolute Auto 1.61 K/mm3 (0.9-3.2); Mean Corpuscular HGB Conc 31.6 g/dl (32-36); Mean Corpuscular Hemoglobin 29.6 pg (26-34); Mean Corpuscular Volume 93.5 fl (80-100); Mean Platelet Volume 11.5 fl (7.4-10.4); Monocytes Absolute Auto 0.8 K/mm3 (0.1-0.6); Monocytes Percent Auto 9.8 % (2.6-8.5); Neutrophils Absolute Auto 5.4 K/mm3 (1.3-6.7); Neutrophils Percent Auto 67.2 % (45.5-73.1); Platelet Count Result 241 k/mm3 (150-375); Red Blood Count 4.33 M/mm3 (4.2-5.4); Red Cell Distribution Width 13.1 % (11.5-14.5)
[2024-10-05 04:50] LABS: Alanine Aminotransferase 22 U/L (6-35); Alkaline Phosphatase 54 U/L (38-126); Anion Gap 12 mmol/L (4-12); Aspartate Amino Transferase 32 U/L (14-36); Bilirubin,Total 1.7 mg/dL (0.2-1.3); Blood Urea Nitrogen 13 mg/dL (7-17); Calcium 9.5 mg/dL (8.4-10.2); Carbon Dioxide 20 mmol/L (22-30); Chloride 108 mmol/L (98-107); Estimated CRCL calculation 61 ml/min; Estimated Glomerular Filt Rate > 60; Glucose 155 mg/dL (65-110); Magnesium 1.7 mg/dL (1.6-2.3); Potassium 3.5 mmol/L (3.4-5.0); Sodium 140 mmol/L (137-145)
[2024-10-05 07:34] LABS: Glucose Point of Care 144 mg/dl (65-105)
[2024-10-05] MEDS: amLODIPine BESYLATE 10 MG TABLET PO (09:34)
[2024-10-05] MEDS: SITagliptin PHOSPHATE 100 MG TABLET PO (09:34)
[2024-10-05] MEDS: ATORVASTATIN 40 MG TABLET PO (09:34)
[2024-10-05] MEDS: METOPROLOL TARTRATE 25 MG TABLET PO ×2 (09:34→20:47)
[2024-10-05] MEDS: LACOSAMIDE (*CRX) 100 MG TABLET PO ×2 (09:34→20:47)
[2024-10-05] MEDS: FLUoxetine HCL 10 MG CAPSULE PO (09:34)
[2024-10-05] MEDS: ASPIRIN 81 MG CHEWABLE TABLET PO (09:34)
[2024-10-05] MEDS: FENOFIBRATE 160 MG TABLET PO (09:34)
[2024-10-05] MEDS: levETIRAcetam 500 MG TABLET 1000 MG PO ×2 (09:35→20:48)
[2024-10-05] MEDS: ENOXAPARIN 40 MG/0.4 ML SYRINGE SUB-Q (09:35)
--- NOTE | 2024-10-05 11:45 | P.NEURO_ITS ---
Neurology EEG Report General Information Date of Study: 10/05/24 TEST eeg DIAGNOSIS Seizures CONDITION OF RECORDING awake, drowsy and sleep. EEG NUMBER [id number] CLINICAL HISTORY patient slept throughout the setup and tracing with no particular history available to the news gathering technician. EEG DESCRIPTION Low-voltage 8 to 10 hertz per 2nd alpha is seen with good sravani posterior gradient. Mixture of low-voltage alpha, theta, and beta activity seen during drowsiness evolving into sleep with bilateral symmetrical sleep spindles. Hyperventilation not done. Photic stimulation not done. Non paroxysmal. Nonfocal. Nonlateralizing. IMPRESSION Normal record.
--- NOTE | 2024-10-05 11:50 | WPDNEURCNPN ---
Consult date: 10/05/24 HPI: Kerline Mohan is a 69 year old female [facility] Past Medical History Medical History 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 and increased tone fingers of the left hand History of GI bleed Splenic varices Diabetic nephropathy Meckels diverticulum Duodenal ulcer Vitamin B12 deficiency Vitamin D deficiency CAD (coronary artery disease) Hyperlipidemia Type 2 diabetes mellitus Essential hypertension Seizure disorder GERD (gastroesophageal reflux disease) History of hemorrhagic cerebrovascular accident (CVA) without residual deficits Atrial fibrillation Surgical History Surgical History History of tonsillectomy and adenoidectomy Status post open reduction and internal fixation (ORIF) of fracture Left wrist and hand History of carpal tunnel release Left Family History Family History Sibling Cerebrovascular accident Hypertension Kidney disease Father Bladder cancer Heart disease Hypertension Mother Hypertension Kidney disease Social History Social History Social History: Code status: Full code Power of tax attorney for healthcare: Claudia Mohan (daughter) Smoking status: Never smoker Second hand tobacco smoke exposure: No Alcohol intake: former Alcohol use details: The patient used to on occasion drink 1 alcoholic beverage a month. Substance use: never Spiritual care concerns: No Meds Home Medications and Allergies Home Medications ?Medication ?Instructions ?Recorded ?Confirmed ?Type amlodipine 10 mg tablet 10 mg PO QAM #30 tabs 08/22/22 10/03/24 Rx atorvastatin 40 mg tablet 40 mg PO DAILY #30 tabs 08/22/22 10/03/24 Rx metoprolol tartrate 25 mg tablet 25 mg PO Q12HR #60 tabs 08/22/22 10/03/24 Rx aspirin 81 mg chewable tablet 81 mg PO DAILY@0800 #30 tabs 12/15/22 10/03/24 Rx (Children's Aspirin) fenofibrate 160 mg tablet 160 mg PO DAILY 05/02/24 10/03/24 History lacosamide 100 mg tablet 100 mg PO BID 05/02/24 10/03/24 History linagliptin 5 mg tablet (Tradjenta) 5 mg PO DAILY 05/02/24 10/03/24 History acetaminophen 325 mg tablet 650 mg PO Q12H PRN fever or pain 10/03/24 10/03/24 History cholecalciferol (vitamin D3) 1,250 1,000 unit PO DAILY 10/03/24 10/03/24 History mcg (50,000 unit) capsule fluoxetine 10 mg capsule 10 mg PO DAILY 10/03/24 10/03/24 History levetiracetam 500 mg tablet 1,000 mg PO Q12HR 10/03/24 10/03/24 History (Keppra) sennosides 8.6 mg tablet (senna) 8.6 mg PO DAILY PRN constipation 10/03/24 10/03/24 History insulin glargine 100 unit/mL (3 20 unit subcut QHS 10/04/24 10/04/24 History mL) subcutaneous pen (Basaglar KwikPen U-100 Insulin) Allergies Allergy/AdvReac Type Severity Reaction Status Date / Time metformin Allergy Unknown Unknown Verified 10/04/24 03:19 aspartame Allergy unknown Verified 10/04/24 03:19 insulin glargine (From Allergy unknown Verified 10/04/24 03:19 Lantus U-100 Insulin) morphine Allergy Unknown Verified 06/13/24 12:50 Vital Signs Vital Signs - 24 hr 10/04/24 12:00 10/04/24 12:00 10/04/24 16:00 Temperature 36.7 C Pulse Rate 72 72 98 Respiratory Rate 20 Blood Pressure 142/58 H Pulse Oximetry 97 Oxygen Delivery 10/04/24 19:56 10/04/24 20:00 10/05/24 00:00 Temperature 36.8 C 36.5 C Pulse Rate 71 71 67 Respiratory Rate 17 17 18 Blood Pressure 142/65 H 143/61 H Pulse Oximetry 98 98 99 Oxygen Delivery Room Air 10/05/24 03:43 10/05/24 08:00 10/05/24 09:34 Temperature 36.5 C 36.9 C Pulse Rate 96 67 79 Respiratory Rate 18 18 Blood Pressure 165/78 H 146/59 H Pulse Oximetry 98 99 Oxygen Delivery Results Labs 10/05/24 04:02 10/05/24 04:02 Labs: Short CBC 10/05/24 Range/Units 04:02 WBC 8.0 (4.5-10.0) K/mm3 Hgb 12.8 (12.0-15.0) g/dL Hct 40.5 (37.0-47.0) % Plt Count 241 (150-375) k/mm3 BMP 10/05/24 04:02 Sodium 140 Potassium 3.5 Chloride 108 H Carbon Dioxide 20 L BUN 13 Creatinine 0.83 Glucose 155 H Calcium 9.5 Liver Function 10/05/24 Range/Units 04:02 Total Bilirubin 1.7 H (0.2-1.3) mg/dL AST 32 (14-36) U/L ALT 22 (6-35) U/L Alkaline Phosphatase 54 (38-126) U/L Albumin 4.0 (3.5-5.1) g/dL
--- NOTE | 2024-10-05 11:51 | WPDNEUROPN ---
Subjective Date/time seen: 10/05/24 11:51 Interval history: 69 years old lady was initially seen yesterday with ongoing history of seizure disorder and with the complaints of intermittent confusion and also consideration of the anticonvulsant with the should be continued or not. as per the daughter medications were not given for 72hours in the residential. She has a regular neurologist to follow with and she would like to continue the medications as such and also she wants to take her home from the residential this time but she still complains of intermittent confusion and would like to have her stay in the hospital today. I raise the possibility of having the underlying dementia with intermittent confusion raising the possibility of the simple findings suggestive of a dementia versus the possibility of the seizure but again she has a neurologist to follow with we will leave the medication as such. EEG was done during this hospitalization which revealed no evidence of any paroxysmal activity. Objective Data Vital Signs Vital Signs: Vital Signs - 24 hr 10/04/24 12:00 10/04/24 12:00 10/04/24 16:00 Temperature 36.7 C Pulse Rate 72 72 98 Respiratory Rate 20 Blood Pressure 142/58 H Pulse Oximetry 97 Oxygen Delivery 10/04/24 19:56 10/04/24 20:00 10/05/24 00:00 Temperature 36.8 C 36.5 C Pulse Rate 71 71 67 Respiratory Rate 17 17 18 Blood Pressure 142/65 H 143/61 H Pulse Oximetry 98 98 99 Oxygen Delivery Room Air 10/05/24 03:43 10/05/24 08:00 10/05/24 09:34 Temperature 36.5 C 36.9 C Pulse Rate 96 67 79 Respiratory Rate 18 18 Blood Pressure 165/78 H 146/59 H Pulse Oximetry 98 99 Oxygen Delivery Intake/Output Intake/Output: Intake & Output 10/02/24 10/03/24 10/04/24 10/05/24 23:59 23:59 23:59 23:59 Intake Total 1100 2770 Output Total 25 1200 Balance 1075 1570 Meds/Results Medications: Active Medications Generic Name Dose Route Start Last Admin Trade Name Freq PRN Reason Stop Dose Admin Acetaminophen 650 mg 10/03/24 20:13 10/03/24 22:39 Acetaminophen 325 Mg Tablet PO 650 mg Q4H PRN Administration Mild Pain (1-3) or Fever Amlodipine Besylate 10 mg 10/04/24 09:00 10/05/24 09:34 Amlodipine Besylate 10 Mg Tablet PO 10 mg QAM SANDEE Administration Aspirin 81 mg 10/04/24 08:00 10/05/24 09:34 Aspirin 81 Mg Chewable Tablet PO 81 mg DAILY@0800 SANDEE Administration Atorvastatin Calcium 40 mg 10/04/24 09:00 10/05/24 09:34 Atorvastatin 40 Mg Tablet PO 40 mg DAILY SANDEE Administration Dextrose 12.5 gm 10/04/24 07:59 Dextrose 50% 25 Gm/50 Ml Syringe IV PUSH PRN PRN Hypoglycemia Protocol Enoxaparin Sodium 40 mg 10/05/24 09:00 10/05/24 09:35 Enoxaparin 40 Mg/0.4 Ml Syringe SUB-Q 40 mg DAILY SANDEE Administration Fenofibrate 160 mg 10/04/24 09:00 10/05/24 09:34 Fenofibrate 160 Mg Tablet PO 160 mg DAILY ASNDEE Administration Fluoxetine HCl 10 mg 10/04/24 09:00 10/05/24 09:34 Fluoxetine Hcl 10 Mg Capsule PO 10 mg DAILY SANDEE Administration Glucagon 1 mg 10/04/24 07:59 Glucagon For Inj 1 Mg Vial IM PRN PRN Hypoglycemia Protocol Glucose 15 gm 10/04/24 07:59 Glucose Oral Gel 15 Gm Of Glucse In 37.5 Gm Tube PO PRN PRN Hypoglycemia Protocol Dextrose 1,000 mls @ 100 mls/hr 10/04/24 07:59 Dextrose 5% 1,000 Ml IVPB PRN PRN Hypoglycemia Protocol Insulin Aspart 3 - 6 units 10/04/24 08:00 10/05/24 09:33 Insulin Aspart (*Bkc) 100 Units/Ml SUB-Q Not Given TIDWM SANDEE Protocol Insulin Glargine 15 units 10/04/24 21:00 10/04/24 22:09 Insulin Glargine (*Bkc) 100 Units/Ml SUB-Q 15 units QHS SANDEE Administration Lacosamide 100 mg 10/03/24 21:00 10/05/24 09:34 Lacosamide (*Crx) 100 Mg Tablet PO 100 mg Q12HR SANDEE Administration Levetiracetam 1,000 mg 10/04/24 09:00 10/05/24 09:35 Levetiracetam 500 Mg Tablet PO 1,000 mg Q12HR SANDEE Administration Metoprolol Tartrate 25 mg 10/04/24 09:00 10/05/24 09:34 Metoprolol Tartrate 25 Mg Tablet PO 25 mg Q12HR SANDEE Administration Ondansetron HCl 4 mg 10/03/24 20:13 Ondansetron Inj 4 Mg/2 Ml Vial IV PUSH Q4H PRN Nausea Senna 8.6 mg 10/04/24 07:56 Sennosides 8.6 Mg Tablet PO DAILY PRN constipation Sitagliptin Phosphate 100 mg 10/04/24 09:00 10/05/24 09:34 Sitagliptin Phosphate 100 Mg Tablet PO 11/03/24 08:59 100 mg DAILY SANDEE Administration Radiology Results: ITS Impressions Head CT 10/03/24 14:13 IMPRESSION: No acute intracranial findings. Labs Labs: Laboratory Results - last 24 hr 10/04/24 10/04/24 10/05/24 15:41 20:21 04:02 WBC 8.0 RBC 4.33 Hgb 12.8 Hct 40.5 MCV 93.5 MCH 29.6 MCHC 31.6 L RDW 13.1 Plt Count 241 MPV 11.5 H Immature Gran % (Auto) 0.4 Neut % (Auto) 67.2 Lymph % (Auto) 20.0 [place] % (Auto) 9.8 H Eos % (Auto) 1.6 Baso % (Auto) 1.0 Lymph # (Auto) 1.61 [place] # (Auto) 0.8 H Eos # (Auto) 0.1 Baso # (Auto) 0.1 Abs Immat Gran (auto) 0.03 Absolute Neuts (auto) 5.4 Absolute Nucleated RBC 0.000 Nucleated RBC % 0.0 Sodium 140 Potassium 3.5 Chloride 108 H Carbon Dioxide 20 L Anion Gap 12 BUN 13 Creatinine 0.83 Estim Creat Clear Calc 61 Estimated GFR > 60 Glucose 155 H POC Capillary Glucose 137 H 163 H Calcium 9.5 Magnesium 1.7 Total Bilirubin 1.7 H AST 32 ALT 22 Alkaline Phosphatase 54 Total Protein 7.0 Albumin 4.0 10/05/24 07:27 WBC RBC Hgb Hct MCV MCH MCHC RDW Plt Count MPV Immature Gran % (Auto) Neut % (Auto) Lymph % (Auto) [place] % (Auto) Eos % (Auto) Baso % (Auto) Lymph # (Auto) [place] # (Auto) Eos # (Auto) Baso # (Auto) Abs Immat Gran (auto) Absolute Neuts (auto) Absolute Nucleated RBC Nucleated RBC % Sodium Potassium Chloride Carbon Dioxide Anion Gap BUN Creatinine Estim Creat Clear Calc Estimated GFR Glucose POC Capillary Glucose 144 H Calcium Magnesium Total Bilirubin AST ALT Alkaline Phosphatase Total Protein Albumin
[2024-10-05 12:25] LABS: Glucose Point of Care 158 mg/dl (65-105)
--- NOTE | 2024-10-05 13:19 | PM.IMPN ---
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 Qualified Code(s): E11.65 - Type 2 diabetes mellitus with hyperglycemia; Z79.4 - FPC (current) use of insulin Code(s): E11.65 - Type 2 diabetes mellitus with hyperglycemia Status: Acute Plan Seizure daughter noted patient was taken off her meds in [place] for more than 2 days resulting in seizure no seizure since admission She also noted patient might have had another episode prior to to the this one and she was on her meds then Increase Keppra to 100omg bid, continue Lacosamide EEG normal neurology following Elevated troponin No chest pain and troponin is normal now DM2 SSI with accucheks and monitor HTN titrate home meds with clinical course Paroxysmal Afib Not a candidate for AC given history of hemorrhagic CVA DVT prophylaxis on Sq Lovenox Discharge tomorrow awaiting PT/OT Subjective Date/time seen: 10/05/24 13:19 Interval history: Comfortable at bedside Review of Systems Review of Systems: ROS unobtainable: Yes unobtainable due to mental status Exam Narrative: Weight 82.5 kg BMI 28.5 Const: Other: Chronically debilitated but well-developed well-nourished, no acute distress, sitting up in bed head of the bed at 45? HENMT: Other: Mucous membranes are moist, no oral pharyngeal erythema, edentulous in upper and lower jaw Eyes: Other: Pupils are slightly irregular with elongated shape to the left pupil right pupil is normal circular appearance, both eyes are equally reactive, patient seems to have some mild ptosis bilaterally Neck: Other: No JVD, no lymphadenopathy, IV in the right EJ Resp: Other: Clear to auscultation bilaterally, no increased work of breathing Cardio: Other: Regular rate, regular rhythm, 2+ bilateral radial pedal pulses GI: Other: Soft, nontender, nondistended, positive bowel sounds : Other: Depends in place Skin: Other: No pallor, non jaundice Neuro: Other: Alert oriented self in the fact that she is in the hospital, she is hard of hearing, no obvious facial droop, she is slow to respond, as poor fine motor skills Extrem: Other: 5/5 media consultant outside sales strength on the right, 4 5 media consultant outside sales strength on the left patient has joint deformities of the right hands with flexion contractures of the proximal PIP joint and extensions 3 of 4 D IP joints, no clubbing, cyanosis or edema Psych: Other: Pleasantly confused but cooperative, poor judgment insight, repetitive questioning and short attention span Objective Data Vital Signs Vital Signs: Vital Signs - 24 hr 10/04/24 16:00 10/04/24 19:56 10/04/24 20:00 Temperature 98.1 F 98.3 F Pulse Rate 98 71 71 Respiratory Rate 20 17 17 Blood Pressure 142/58 H 142/65 H Pulse Oximetry 97 98 98 Oxygen Delivery Room Air 10/05/24 00:00 10/05/24 03:43 10/05/24 08:00 Temperature 97.7 F 97.7 F 98.4 F Pulse Rate 67 96 67 Respiratory Rate 18 18 18 Blood Pressure 143/61 H 165/78 H 146/59 H Pulse Oximetry 99 98 99 Oxygen Delivery 10/05/24 09:34 Temperature Pulse Rate 79 Respiratory Rate Blood Pressure Pulse Oximetry Oxygen Delivery Intake/Output Intake/Output: Intake & Output 10/02/24 10/03/24 10/04/24 10/05/24 23:59 23:59 23:59 23:59 Intake Total 1100 2770 Output Total 25 1200 Balance 1075 1570 Meds/Results Medications: Active Medications Generic Name Dose Route Start Last Admin Trade Name Robin PRN Reason Stop Dose Admin Acetaminophen 650 mg 10/03/24 20:13 10/03/24 22:39 Acetaminophen 325 Mg Tablet PO 650 mg Q4H PRN Administration Mild Pain (1-3) or Fever Amlodipine Besylate 10 mg 10/04/24 09:00 10/05/24 09:34 Amlodipine Besylate 10 Mg Tablet PO 10 mg QAM SANDEE Administration Aspirin 81 mg 10/04/24 08:00 10/05/24 09:34 Aspirin 81 Mg Chewable Tablet PO 81 mg DAILY@0800 SANDEE Administration Atorvastatin Calcium 40 mg 10/04/24 09:00 10/05/24 09:34 Atorvastatin 40 Mg Tablet PO 40 mg DAILY SANDEE Administration Dextrose 12.5 gm 10/04/24 07:59 Dextrose 50% 25 Gm/50 Ml Syringe IV PUSH PRN PRN Hypoglycemia Protocol Enoxaparin Sodium 40 mg 10/05/24 09:00 10/05/24 09:35 Enoxaparin 40 Mg/0.4 Ml Syringe SUB-Q 40 mg DAILY SANDEE Administration Fenofibrate 160 mg 10/04/24 09:00 10/05/24 09:34 Fenofibrate 160 Mg Tablet PO 160 mg DAILY SANDEE Administration Fluoxetine HCl 10 mg 10/04/24 09:00 10/05/24 09:34 Fluoxetine Hcl 10 Mg Capsule PO 10 mg DAILY SANDEE Administration Glucagon 1 mg 10/04/24 07:59 Glucagon For Inj 1 Mg Vial IM PRN PRN Hypoglycemia Protocol Glucose 15 gm 10/04/24 07:59 Glucose Oral Gel 15 Gm Of Glucse In 37.5 Gm Tube PO PRN PRN Hypoglycemia Protocol Dextrose 1,000 mls @ 100 mls/hr 10/04/24 07:59 Dextrose 5% 1,000 Ml IVPB PRN PRN Hypoglycemia Protocol Insulin Aspart 3 - 6 units 10/04/24 08:00 10/05/24 12:44 Insulin Aspart (*Bkc) 100 Units/Ml SUB-Q Not Given TIDWM SANDEE Protocol Insulin Glargine 15 units 10/04/24 21:00 10/04/24 22:09 Insulin Glargine (*Bkc) 100 Units/Ml SUB-Q 15 units QHS SANDEE Administration Lacosamide 100 mg 10/03/24 21:00 10/05/24 09:34 Lacosamide (*Crx) 100 Mg Tablet PO 100 mg Q12HR SANDEE Administration Levetiracetam 1,000 mg 10/04/24 09:00 10/05/24 09:35 Levetiracetam 500 Mg Tablet PO 1,000 mg Q12HR SANDEE Administration Metoprolol Tartrate 25 mg 10/04/24 09:00 10/05/24 09:34 Metoprolol Tartrate 25 Mg Tablet PO 25 mg Q12HR SANDEE Administration Ondansetron HCl 4 mg 10/03/24 20:13 Ondansetron Inj 4 Mg/2 Ml Vial IV PUSH Q4H PRN Nausea Senna 8.6 mg 10/04/24 07:56 Sennosides 8.6 Mg Tablet PO DAILY PRN constipation Sitagliptin Phosphate 100 mg 10/04/24 09:00 10/05/24 09:34 Sitagliptin Phosphate 100 Mg Tablet PO 11/03/24 08:59 100 mg DAILY SANDEE Administration Radiology Results: ITS Impressions Head CT 10/03/24 14:13 IMPRESSION: No acute intracranial findings. Labs Labs: Laboratory Results - last 24 hr 10/04/24 10/04/24 10/05/24 15:41 20:21 04:02 WBC 8.0 RBC 4.33 Hgb 12.8 Hct 40.5 MCV 93.5 MCH 29.6 MCHC 31.6 L RDW 13.1 Plt Count 241 MPV 11.5 H Immature Gran % (Auto) 0.4 Neut % (Auto) 67.2 Lymph % (Auto) 20.0 [place] % (Auto) 9.8 H Eos % (Auto) 1.6 Baso % (Auto) 1.0 Lymph # (Auto) 1.61 [place] # (Auto) 0.8 H Eos # (Auto) 0.1 Baso # (Auto) 0.1 Abs Immat Gran (auto) 0.03 Absolute Neuts (auto) 5.4 Absolute Nucleated RBC 0.000 Nucleated RBC % 0.0 Sodium 140 Potassium 3.5 Chloride 108 H Carbon Dioxide 20 L Anion Gap 12 BUN 13 Creatinine 0.83 Estim Creat Clear Calc 61 Estimated GFR > 60 Glucose 155 H POC Capillary Glucose 137 H 163 H Calcium 9.5 Magnesium 1.7 Total Bilirubin 1.7 H AST 32 ALT 22 Alkaline Phosphatase 54 Total Protein 7.0 Albumin 4.0 10/05/24 10/05/24 07:27 12:22 WBC RBC Hgb Hct MCV MCH MCHC RDW Plt Count MPV Immature Gran % (Auto) Neut % (Auto) Lymph % (Auto) [place] % (Auto) Eos % (Auto) Baso % (Auto) Lymph # (Auto) [place] # (Auto) Eos # (Auto) Baso # (Auto) Abs Immat Gran (auto) Absolute Neuts (auto) Absolute Nucleated RBC Nucleated RBC % Sodium Potassium Chloride Carbon Dioxide Anion Gap BUN Creatinine Estim Creat Clear Calc Estimated GFR Glucose POC Capillary Glucose 144 H 158 H Calcium Magnesium Total Bilirubin AST ALT Alkaline Phosphatase Total Protein Albumin Quality VTE Prophylaxis VTE prophylaxis: mechanical ordered (SCDs)
[2024-10-05 19:13] LABS: Glucose Point of Care 171 mg/dl (65-105)
[2024-10-05 20:48] LABS: Glucose Point of Care 190 mg/dl (65-105)
[2024-10-05] MEDS: INSULIN GLARGINE (*BKC) 100 UNITS/ML 15 UNITS SUB-Q (20:48)
--- NOTE | 2024-10-05 21:43 | PC.NURSE ---
This patient, Kerline Mohan, was transferred to [[id number] ] on 10/05/24 at 2143. Personal belongings sent with patient. Report given to [Monica maradiaga ]. Appropriate documentation sent with patient.
--- NOTE | 2024-10-05 21:51 | PC.NURSE ---
2147 RECEIVED PT VIA TRANSFER IN HOSPITAL BED FROM IMU [phone] TO 245. PT APPEARS COMFORTABLE. BED ALARM ON AND CALL LIGHT IN REACH
[2024-10-06 05:42] VITALS: BP 142/60; PULSE 60; RESP 16; TEMP 36.4; O2SAT 100
[2024-10-06 08:19] LABS: Glucose Point of Care 103 mg/dl (65-105)
[2024-10-06] MEDS: ATORVASTATIN 40 MG TABLET PO (09:07)
[2024-10-06] MEDS: levETIRAcetam 500 MG TABLET 1000 MG PO (09:07)
[2024-10-06 09:08] VITALS: PULSE 60
[2024-10-06] MEDS: ASPIRIN 81 MG CHEWABLE TABLET PO (09:08)
[2024-10-06] MEDS: ENOXAPARIN 40 MG/0.4 ML SYRINGE SUB-Q (09:08)
[2024-10-06] MEDS: METOPROLOL TARTRATE 25 MG TABLET PO (09:08)
[2024-10-06] MEDS: SITagliptin PHOSPHATE 100 MG TABLET PO (09:08)
[2024-10-06] MEDS: amLODIPine BESYLATE 10 MG TABLET PO (09:08)
[2024-10-06] MEDS: FENOFIBRATE 160 MG TABLET PO (09:08)
[2024-10-06] MEDS: LACOSAMIDE (*CRX) 100 MG TABLET PO (09:08)
[2024-10-06] MEDS: FLUoxetine HCL 10 MG CAPSULE PO (09:08)
[2024-10-06 12:24] LABS: Glucose Point of Care 120 mg/dl (65-105)
--- NOTE | 2024-10-06 14:13 | P.DS_ITS ---
DS: Admitting Diagnosis Discharge Date 10/06/2024 Admitting Diagnosis Seizure due to missed seizure meds DS: Discharge Diagnosis Discharge Diagnosis (1) Seizures: Code(s): R56.9 - Unspecified convulsions Status: Acute DS: Summary Hospital Course Hospital Course: 69-year-old female with a past medical history of diabetes, hyperlipidemia, coronary artery disease, multiple vitamin deficiencies, CHF, AFib, essential hypertension, seizure disorder among other comorbidities who presented to the ER via EMS from [facility] due to seizures. The patient seizure medications were stopped a few days ago per the order of intermediate staff after they had a negative interaction with the patient's daughter. Daughter reported the patient had many breakthrough seizures that had not been treated. The daughter wanted patient brought in for evaluation. In triage the patient had the tonic clonic seizure lasting less than a minute. She was postictal and had a nasal trumpet inserted. She received 1 mg of Ativan. The patient's neurologist is Dr. Baca. The patient's daughter reports that the intermediate staff had stopped the patient's seizure medications after having a negative interaction with patient's daughter. The intermediate staff had actually accuse the daughter of giving the patient medications to cause a seizure. They had the patient's daughter arrested. Appears the patient was placed in intermediate around April 2024 after she became combative and argumentative with the daughter and the daughter felt she could no longer take care of her at home. Source of information is from ER records and physician report as well as well review of past medical records. Patient is unable to participate in history process due to baseline psychiatric condition. The patient does not have recall of the events that brought her to the hospital. But at the time of my evaluation the patient was awake sitting up in bed and pleasant but confused. She was cooperative but did seem to have difficulty understanding questions and following some directions. She denied having any pain or acute complaints. She did have a bruise noted to the medial right tongue. Patient was started back on her 1000mg Keppra bid and lacosamide, EEG showed no seizures. Patient has remained seizure free this admission. Neurology was involved in her care. Patient discharged and will follow up with PCP in 3-5 days F/u with Neurology as instructed Patient discharged home with daughter Time Spent with Patient Time attestation: Total time spent providing and/or coordinating discharge services: DS: Data Data Completed and Pending Labs on day of discharge: Labs from last 24 hours 10/06/24 10/06/24 10/05/24 12:20 08:17 20:45 POC Capillary Glucose 120 H 103 190 H 10/05/24 15:56 POC Capillary Glucose 171 H Discharge Plan Discharge Attending physician on discharge: Dayday Caldwell Consulting providers: Olivia Flor Discharging Clinician: Dayday Caldwell Patient Disposition: Home Health Service Activity: as tolerated Diet: diabetic Discharge Instructions: Per Care Coordination, patient to discharge with [facility] ) for PT/OT and prison services. Agency will call to arrange initial visit. Patient Instructions: Antibiotic Form, A-fib (Atrial Fibrillation) (GEN), Epilepsy (GEN) Patient Language: Mongolian Stand Alone Forms: General Discharge Information Follow-up/Referrals: Yahir,ZURI Kelley [Primary Care Provider] - (F/u with PCP in 3-5 days ) Olivia Flor MD [Physician] - (F/u with Neurology as instructed ) Discharge Medications: Continued fenofibrate 160 mg tablet 160 mg PO DAILY lacosamide 100 mg tablet 100 mg PO BID Tradjenta 5 mg tablet 5 mg PO DAILY fluoxetine 10 mg capsule 10 mg PO DAILY sennosides [senna] 8.6 mg tablet 8.6 mg PO DAILY PRN (Reason: constipation) acetaminophen 325 mg tablet 650 mg PO Q12H PRN (Reason: fever or pain) levetiracetam [Keppra] 500 mg Tablet 1,000 mg PO Q12HR cholecalciferol (vitamin D3) 1,250 mcg (50,000 unit) Capsule 1,000 unit PO DAILY insulin glargine [Basaglar KwikPen U-100 Insulin] 100 unit/mL (3 mL) insulin pen 20 unit subcut QHS aspirin [Children's Aspirin] 81 mg Tablet,Chewable 81 mg PO DAILY@0800 Qty: 30 0RF atorvastatin 40 mg Tablet 40 mg PO DAILY Qty: 30 0RF amlodipine 10 mg Tablet 10 mg PO QAM Qty: 30 0RF metoprolol tartrate 25 mg Tablet 25 mg PO Q12HR Qty: 60 0RF Date of admission: 10/04/24 10:23 Primary Care Provider: Yahir,Allie Admitting Provider: Vira Weber Attending physician on admission: Vira Weber Condition: Stable
--- NOTE | 2024-10-07 12:48 | PC.NURSE ---
Received call from sarah Taylor. dtr., regarding missing scripts. The missing scripts were sent to Pts pharmacy. Reveiwed pts meds with pharmacy. Meds all match. left VM regarding this for dtr.
== END 2024-10-06 16:05 | disposition home health service (06) | DRG 101 ==
LOC: ANHED 20:19 → ANHIMU 21:11 → ANH2MED 10-06 14:12 → ANHIMU 10-07 13:40
PROVIDERS: Registered Nurse; Admitting Provider Internal Medicine; Emergency Provider Emergency Medicine; PCP Physician Assistant; Visit Provider Internal Medicine
DX: G40.909 Epilepsy, unspecified, not intractable, without status epilepticus (principal); I48.20 Chronic atrial fibrillation, unspecified; I11.0 Hypertensive heart disease with heart failure; I50.9 Heart failure, unspecified; I25.10 Atherosclerotic heart disease of native coronary artery without angina pectoris; K21.9 Gastro-esophageal reflux disease without esophagitis; E11.9 Type 2 diabetes mellitus without complications; E78.5 Hyperlipidemia, unspecified; E53.8 Deficiency of other specified B group vitamins; E55.9 Vitamin D deficiency, unspecified; R79.89 Other specified abnormal findings of blood chemistry; T42.76XA Underdosing of unspecified antiepileptic and sedative-hypnotic drugs, initial encounter; Z79.4 Long term (current) use of insulin; Z86.73 Personal history of transient ischemic attack (TIA), and cerebral infarction without residual deficits; Z79.82 Long term (current) use of aspirin
CPT/HCPCS: 36415; 70450; 80053; 80307; 81001; 82550; 82948; 83605; 83735; 84443; 84484; 85025; 85610; 85730; 93005; 95816; 96361; 96374; 96375; 97161; 99285; A9270; G0378; J1650; J1815; J1953; J2060; J7030

== ENCOUNTER 2024-10-21 11:36 | Outpatient (NON) | payer MEDICARE, SELFPAY ==
--- OUTSIDE RECORDS SUMMARY | 2024-10-21 11:53 | XMS_ITS | Data Portability ---
Author Organization [place] - [facility] OFFICE Address [address] [place] [address] Care Team Providers Care Pulp Refiner Operator Name Role Phone ELIAS FIGUEROA Primary [...] By Organization Details Last Modified Time 10/14/2022 24104 Exercise advised Low cholesterol diet advised Low sodium diet advised. dejahi Not available 10/14/2022 13:23:36 11/04/2022 [id number] Low cholesterol diet advised Low sodium diet [...] Address Organization Details Recorded Time Essential hypertension 31738011 Active 2022 Denny Vargas null, [place] - [facility] 18:31:18 Hyperlipidemia 60854839 Active 2022 D[place] [facility] 18:31:38 Diabetes mellitus 73114907 Active 2022 D[place] [facility] 18:31:53 Tuberculosis 78930767 Active 2022 D[place] [facility] 18:32:07 Vitamin D deficiency 88517285 Active 2022 Baldwin [place] [facility] 3 18:32:23 Hypomagnesemia 922710676 Active 2022 [place] [facility] 18:32:33 Hypokalemia 92486236 Active 2022 [place] [facility] 3 18:32:43 Depressive disorder 33135904 Active 2022 [place] [facility] 18:32:50 Migraine 44611273 Active 2022 [place] [facility] 3 18:33:03 Carpal tunnel syndrome 41328053 Active 2022 [place] [facility] 18:33:16 Allergic rhinitis 64117072 Active 2022 [place] [facility] 3 18:33:36 Gallstone 904019915 Active 2022 [place] [facility] 18:33:55 Renal failure syndrome 19066590 Active 2022 [place] [facility] 18:34:09 Acute urinary tract infection 362322720 Active 2022 [place] [facility] 18:34:23 Contact dermatitis 85447922 Active 2022 [place] [facility] 18:34:38 Arthritis 9537104 Active 2022 [place] [facility] 18:34:45 Swelling of knee joint 398588722 Active 2022 [place] [facility] 18:35:00 Shoulder pain 76337484 Active 2022 [place] [facility] 18:35:16 Neck pain 04948003 Active 2022 [place] [facility] 18:35:26 Plantar fasciitis 752772334 [facility] 20[facility] 18:35:43 Seizure 11290210 Active 2022 Baldwinkenji Vargas null, [facility] 18:35:56 Obstructive sleep apnea syndrome 21825202 Active 2022 [facility] 18:36:03 History of anemia vitamin B12 deficient 947586773 [facility] 18:36:37 Diverticulosis of colon 152918999 Active 2022 [facility] 18:36:57 Problem Notes None recorded. Procedures Surgical History Date Name Laterality Status Provider Name and Address Organization Details Recorded Time arthroscopic procedure completed [facility] 10/08/2022 18:40:15 tonsillectomy completed [facility] 10/08/2022 18:40:23 ligation of fallopian tube completed [facility] 10/08/2022 18:40:33 Brain aneurysm repr simple completed [facility] 10/08/2022 18:40:53 Imaging Results Imaging Date Name [...] Updated DateTime 3 170.18 cm 34.8 kg/m2 038471. 51 g 75 /min 16 /min 94 % 94 % 132 mm[Hg] 84 mm[Hg] Giblerto Carreon [facility] 3 13:13:32 Date Recorded Body height Body mass index (BMI) Body weight Heart rate Oxygen saturation Oxygen saturation in Arterial blood by Pulse oximetry Systolic blood pressure Diastolic blood pressure Provider Name and Address Organization Details Last Updated DateTime 3 170.18 cm 33.9 kg/m2 74317.1 1 g 85 /min 99 % 99 % 130 mm[Hg] 80 mm[Hg] Zuly Alexander [facility] 3 12:05:28 Social History [...] SNOMED-CT Code Diagnosis ICD10 Code Diagnosis Note [id number] Juwan Newton MD [facility] OFFICE [address] [place] [address] 10/14/2022 12:43:23 10/14/2022 13:26:45 Essential hypertension 75339947 I10 with fair control Hyperlipidemia 95672814 E78.5 Needs to keep LDL less than 70, and HDL more than 40 Will get lipid profile results from PCP Electrocar diogram abnormal 079517968 R94.31 Lexiscan Myoview stress test, pt can not walk. Has known coronary artery disease, with atypical symptoms now Chronic di astolic heart failure 579408011 I50.32 Obtain echo to evaluate for structural /functiona l disease. Edema of l ower extremity 976028987 R60.0 Obtain echo to evaluate for structural /functiona l disease. Pre-surger y evaluation 996054824 Z01.818 Lexiscan Myoview stress test, pt can not walk. Has known coronary artery disease, with atypical symptoms now, the patient is not able to walk on treadmill [address] BOB SIMONFENG [facility] OFFICE [address] [place] [address] 11/04/2022 11:12:20 11/04/2022 12:35:12 Dyspnea on exertion 98423347 R06.09 US, echocardio gramLV chamber size is [...] well visualized . Atypical chest pain 1025 81790 R07.89 she has a positive stress test The patient will be scheduled for left heart catheteriz ation, with coronary angiogram, and possible PTCA/Stent . The procedure was discussed with the patient, and risks, benefits, and alternativ e options were explained. The patient was given informatio n about heart catheteriz ation and interventi onal procedures . The patient agrees to proceed. Dyslipidemia 603170282 E 78.5 continue with lipitor 40 mg daily Obstructiv e sleep apnea syndrome 84580322 G47.33 she has sleep study previously but it was mild per patient Essential hypertension 24047531 I10 with fair control Pre-surger y evaluation 140891236 Z01.818 with positive stress testThe patient will be scheduled for left heart catheteriz ation, with coronary angiogram, and possible PTCA/Stent . The procedure was discussed with the patient, and risks, benefits, and alternativ e options were explained. The patient was given informatio n about heart catheteriz ation and interventi onal procedures . The patient agrees to proceed. Paroxysmal atrial fibrillation 103591900 I48.0 in sinus rhythm todayshe is not on blood thinner nor aspirin Health Concerns Section Related Observation LastModified by Organization Detai ls LastModified Time None Recorded Concern Status LastModified by Organization Details LastModified Time None Recorded Advance Directives Directive None Recorded Payers Encounter Date Sequence Insurance Name Policy Number Policy Shepard Covered Member ID Shepard Member ID Guarantor Name 10/14/2022 1 [place] Kerline Martin [id number] Kerline Martin 10/14/2022 2 [place] [facility] [place] [facility] Kerline Martin [id number] Kerline Martin 11/04/2022 1 [place] Kerline Martin [id number] Kerline Martin 11/04/2022 2 [place] [facility] [place] [facility] Kerline Martin [id number] Kerline Martin Notes Date Note Type Note [...] AM headache. Juwan Newton MD [address] [place], [address], [facility] 10/14/2022 13:24:53 11/04/2022 text/html 10/14/22CC: dysp joes on exertionKerline MARTIN is a 59 years-old [...] somnolence and AM headache. BOB del rio [facility] 11/04/2022 12:47:11 OBGyn Episode No OBEpisode recorded.
--- OUTSIDE RECORDS SUMMARY | 2024-10-21 11:53 | XMS_ITS | Clinical Summary ---
Author Organization [facility] Address [address] [place] [address] Care Team Providers Care Solar Panel Technician Name Role Phone Allie Sinclair PA-C Primary Care Provider [phone] Source Comments [facility],non-owned Affiliates and Associated Physician Practices is amultiple site organization consisting of ambulatory clinics and hospital sitesin [place], [place], [place] and [place]. This disclosure is being madepursuant to the Care Everywhere program and may not contain all information available regarding this patient. Last updated 18.[facility] Allergies Active Allergy Reactions Criticality Noted Date Comments Artificial Sweeteners Diarrhea Medium 07/26/2022 Aspartame Diarrhea Medium 07/26/2022 Morphine Other High 09/10/2023 Pt had bad experience: Acute drug intoxication - called EMS, almost had to complete temporary HD - went to [facility] Medications * Be aware that medications [...] 09/10/2023 midazolam (Nayzilam) 5 MG/0.1ML nasal spray [place] 0.1 mL into the nose as needed for Seizures Lasting longer than 5 minutes. Can administer second dose in other nostril if seizure continues after 10 minutes. 4 Each 5 09/04/2022 Active Additional Information Patient not taking.Reported on 11/07/2022 Cholecalciferol 1.25 MG (50919 UT) cholecalciferol (vitamin D3) 1,250 mcg (50,000 unit) capsule TAKE 1 CAPSULE BY MOUTH EVERY WEEK WITH FOOD Active saline nasal spray (Fisher; Baby Alexander) 0.65 % nasal spray [place] 1 (one) spray to 2 (two) sprays [...] morning 07/07/2023 Active Blood Glucose Monitoring Suppl (Everlasting Values Organized Through Love Verio Flex System) w/Device KIT USE TO CHECK BLOOD SUGAR THREE TIMES DAILY 05/04/2023 Active amLODIPine (Norvasc) 10 MG tablet Take 1 (one) tablet by mouth every morning 07/21/2023 Active fenofibrate (Lofibra) 160 MG tablet TAKE 1 TABLET BY MOUTH EVERY DAY WITH MEALS 08/17/2023 Active Everlasting Values Organized Through [employer] Verio test strip USE TO CHECK BLOOD SUGAR TWICE DAILY 05/05/2023 Active Lancets (QuipperTOUCH DELICA PLUS 33G EXTRA FINE LANCET) USE [...] and cleaning.Pt will be dc today to [facility]. 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 Not hard at all 11/29/2022 [facility] [place] [facility] - Occupational Stress [...] place to sleep or slept in a retirement (including now)? No 11/29/2022 Sex and Gender Information Value Date Recorded Sex Assigned at Not on file Gender Identity Not on file Sexual Orientation Not on file Last Filed Vital Signs Vital Sign Reading Time Taken Comments Blood Pressure 123/68 09/17/2023 3:50 PM DATA COLLECTION SPECIALIST Pulse 68 09/17/2023 3:50 PM DATA COLLECTION SPECIALIST Temperature 36.5 C (97.7 F) 09/17/2023 3:27 PM DATA COLLECTION SPECIALIST Respiratory Rate 13 09/17/2023 3:50 PM DATA COLLECTION SPECIALIST Oxygen Saturation 98% 09/17/2023 3:50 PM DATA COLLECTION SPECIALIST Inhaled Oxygen Concentration 25% 07/23/2022 1 0:00 AM DATA COLLECTION SPECIALIST Weight 90.9 kg (200 lb 6.4 oz) 09/17/2023 12:34 PM DATA COLLECTION SPECIALIST Height 170.2 cm (5' 7 ) 09/17/2023 12:34 PM DATA COLLECTION SPECIALIST Body Mass Index 31.39 09/17/2023 12:34 PM DATA COLLECTION SPECIALIST Plan of Treatment Health Maintenance Due Date [...] 12/03/2022, 12/02/2022, Additional history exists COVID-19 VACCINE (2023- season) 2024 DEPRESSION SCREENING 07/20/2024 DIABETES - URINE PROTEIN SCREENING 07/20/2024 INFLUENZA VACCINE (Season Ended) 2025 05/10/2021, 05/17/2019, 05/11/2017, Additional history exists HEPATITIS C SCREENING Completed 07/24/2022 HEPATITIS B [...] this topic Medical Devices Implanted Type Area Drapery And Upholstery Estimator Device Identifier Shelf Expiration Date Model / Serial / Lot Parth Bone Void 5cc Dbm Allosync Ptty Implanted:Qty: 2 on 11/25/2022 by Robbie Mccann MD at [facility] Left: Humerus [employer] 04/23/2026 ABS-[id number] / / Screw 3.5mm 32mm T15 Slf-Tap Lck Tpr Implanted:Qty: 1 on 11/25/2022 by Robbie Mccann MD at [facility] Left: Humerus [employer] [id number] / / Screw 3.5mm 36mm T15 Slf-Tap Lck Tpr Implanted:Qty: 1 on 11/25/2022 by Robbie Mccann MD at [facility] Left: Humerus [employer] [id number] / / Screw 3.5mm 38mm T15 Slf-Tap Lck Tpr Implanted:Qty: 1 on 11/25/2022 by Robbie Mccann MD at [facility] Left: Humerus [employer] [id number] / / Screw 3.5mm 42mm T15 Lck Slf-Tap Tip Tpr Implanted:Qty: 1 on 11/25/2022 by Robbie Mccann MD at [facility] Left: Humerus [employer] [id number] / / Screw 3.5mm 46mm T15 Slf-Tap Lck Tpr Implanted:Qty: 1 on 11/25/2022 by Robbie Mccann MD at [facility] Left: Humerus [employer] [id number] / / Screw 3.5mm 48mm T15 Slf-Tap Lck Tpr Implanted:Qty: 1 on 11/25/2022 by Robbie Mccann MD at [facility] Left: Humerus [employer] [id number] / / Screw 3.5mm 46mm T15 Lck Mldir Nonster Implanted:Qty: 1 on 11/25/2022 by Robbie Mccann MD at [facility] Left: Humerus [employer] [id number] / / Graft Bone Infs Rhbmp-2 Bvn Clgn Lg 8ml Implanted:Qty: 1 on 11/25/2022 by Robbie Mccann MD at [facility] Left: Humerus [employer] 07/20/2024 [id number] / / [id number] Graft Bone Almtr Dbm Canc 5ml Algrf Ptty - [id number] Implanted:Qty: 1 on 11/25/2022 by Robbie Mccann MD at [facility] Left: Humerus zlien Inc 09/22/2023 [id number] / [id number] / Alps Proximal Humerus Low Plate Left 11 H, 190mm Implanted:Qty: 1 on 11/25/2022 by Robbie Mccann MD at [facility] Left: Humerus [id number] / / Screw 3.5mm 20mm T15 Lopro Nonlock Implanted:Qty: 3 on 11/25/2022 by Robbie Mccann MD at [facility] Left: Humerus [employer] [id number] / / Screw 3.5mm 22mm T15 Nonlock Lopro Implanted:Qty: 1 on 11/25/2022 by Robbie Mccann MD at [facility] Left: Humerus [employer] [id number] / / Screw 3.5mm 24mm T15 Nonlock Lopro Implanted:Qty: 1 on 11/25/2022 by Robbie Mccann MD at [facility] Left: Humerus [employer] [id number] / / Screw 3.5mm 32mm T15 Nonlock Lopro Implanted:Qty: 1 on 11/25/2022 by Robbie Mccann MD at [facility] Left: Humerus [employer] [id number] / / Explanted Type Area Drapery And Upholstery Estimator Device Identifier Shelf Expiration Date Model / Serial / Lot Screw 3.5mm 36mm T15 Slf-Tap Lck Tpr Explanted:Qty: 1 on 11/25/2022 by Robbie Mccann MD at [facility] Left: Humerus [employer] [id number] / / Screw 3.5mm 48mm T15 Slf-Tap Lck Tpr Explanted:Qty: 2 on 11/25/2022 by Robbie Mccann MD at [facility] Left: Humerus [employer] [id number] / / Wire K 2mm 152mm Top Tray Ss Fx Explanted:Qty: 4 on 11/25/2022 by Robbie Mccann MD at [facility] Left: Humerus [employer] [id number] / / Screw 3.5mm 24mm T15 Nonlock Lopro Explanted:Qty: 1 on 11/25/2022 by Robbie Mccann MD at [facility] Left: Humerus [employer] [id number] / / Procedures Procedure Name Priority Date/Time Associated Diagnosis Comments RENAL FUNCTION PANEL AM Draw 12/04/2022 2:46 AM CDT HEMOGLOBIN A1C Routine 11/26/2022 1:18 AM CDT Other fracture of shaft of left humerus, subsequent encounter for fracture with malunion HEPATITIS SCREEN ACUTE AM Draw 07/24/2022 4:12 AM DATA COLLECTION SPECIALIST from Last 3 Months or Most Recently Relevant to Health Maintenance Results * (ABNORMAL) RENAL FUNCTION PANEL (12/04/2022 2:46 AM CDT) BUN 7 7 - 26 mg/dL 12/04/2022 4:03 AM [facility] Creatinine 0.98(H) 0.56 - 0.96 mg/dL 12/04/2022 4:03 AM [facility] Sodium 149(H) 136 - 145 mmol/L 12/04/2022 4:03 AM [facility] Potassium 4.4 3.5 - 4.5 mmol/L 12/04/2022 4:03 AM [facility] Chloride 112(H) 98 - 107 mmol/L 12/04/2022 4:03 AM [facility] CO2 18(L) 22 - 29 mmol/L 12/04/2022 4:03 AM [facility] Glucose 155(H) 70 - 115 mg/dL 12/04/2022 4:03 AM [facility] Albumin 2.6(L) 3.4 - 5.0 g/dL 12/04/2022 4:03 AM [facility] Calcium 9.0 8.4 - 10.2 mg/dL 12/04/2022 4:03 AM [facility] Phosphorus 3.7 2.9 - 5.1 mg/dL 12/04/2022 4:03 AM [facility] Anion Gap 23(H) 8 - 18 12/04/2022 4:03 AM [facility] BUN/Creatinine Ratio 7 7 - 23 12/04/2022 4:03 AM CDT [facility] Osmolality Calculated 309(H) 270 - 300 mOsm/kg 12/04/2022 4:03 AM T [facility] eGFR by CKD-EPI 63(L) >=90 mL/min/1.7 3 m2 12/04/2022 4:03 AM T [facility] Blood BLOOD SPECIMEN / Unknown Lab Venipuncture / Unknown 12/04/2022 2:46 AM CDT 12/04/2022 3:24 AM CDT Blaine Campo MD LAB - CHEMISTRY ALEXEI FREEMAN Performing Organization Address City/[facility]/ZIP Co de Phone Number [address] [address], [facility] [phone] * (ABNORMAL) HEMOGLOBIN A1C (11/26/2022 1:18 AM CDT) Hemoglobin A1c 9.1(H) <=5.6 % 11/26/2022 1:26 PM [facility] Estimated Average Glucose 214 mg/dL 11/26/2022 1:26 PM [facility] Comment: HbA1c Interpretation: Normal : < 5.7% Pre-diabetes: 5.7-6.4% Diabetes: Equal to or greater than 6.5% Test results diagnostic of diabetes should be repeated for confirmation. Treatment target values recommended by ADA and other clinical organizations should be used to evaluate metabolic control in patients. Reference: [place] Diabetes Association, Standards of Care in Diabetes [...] Mccann MD LAB - CHEMISTRY SOCORRO CASTILLO [facility] [address] [place] [address], [facility] [phone] * HEPATITIS SCREEN ACUTE (07/24/2022 4:12 AM DATA COLLECTION SPECIALIST) Hepatitis A Virus Antibody IgM Non-react bartolome Non-reac tive 07/24/2022 5:11 AM DATA COLLECTION SPECIALIST [facility] Hepatitis B Virus Surface Antigen Non-react bartolome Non-reac tive 07/24/2022 5:11 AM DATA COLLECTION SPECIALIST [facility] Hepatitis B Core Virus Antibody IgM Non-react bartolome Non-reac tive 07/24/2022 5:11 AM DATA COLLECTION SPECIALIST [facility] Hepatitis C Antibody Non-react bartolome Non-reac tive 07/24/2022 5:11 AM [facility] Comment:Hepatitis C Antibody screen indicates no serologic evidence of past or current infection with Hepatitis C Virus. Patients with unexplained liver disease who are immunocompromised or suspected of having acute Hepatitis C infection may benefit from Nucleic Acid Test (CHA) for Hepatitis C Viral RNA to confirm Hepatitis C status. Blood BLOOD SPECIMEN / Unknown Venipuncture / Unknown 07/24/2022 4:12 AM DATA COLLECTION SPECIALIST 07/24/2022 4:37 AM DATA COLLECTION SPECIALIST Sarabjit Gutierrez MD LAB - CHEMISTRY ORDERABLES [facility] [address] [place] [address], [facility] [phone] from Last 3 Months or Most Recently Relevant to Health Maintenance Advance Directives Documents on File Type Date Recorded Patient Rolfer Expl anation Adv Directive/Living Will/POA 08/01/2022 11:56 AM * Full Code (Latest Code Status on File) Date Activated Date Inactivated Comments 11/28/2022 10:29 PM 12/04/2022 11:55 AM * Full Code Date Activated Date Inactivated Comments 11/25/2022 12:22 PM 11/27/2022 1:35 PM * Full Code Date Activated Date Inactivated Comments 07/07/2022 9:28 PM 08/05/2022 4:23 PM Healthcare Agents on File Name Relationship Healthcare Agent [facility] Claudia Mohan Daughter Health Care Agent Care Teams Solar Panel Technician Relationship Specialty Start Date End Date Allie Sinclair PA-C [address] [place] [address] PCP - General 07/08/22
--- OUTSIDE RECORDS SUMMARY | 2024-10-21 11:54 | XMS_ITS | Clinical Summary ---
Author Organization [facility] Address [address] [place] [address] Care Team Providers Care Data Coordinator Name Role Phone Allie Sinclair PA-C Primary Care Provider [phone]- [phone] Allergies Active Allergy Reactions Criticality Noted Date Comments Aspartame Diarrhea 07/26/2022 Morphine Other (see comment) High 09/10/2023 Pt had bad experience: Acute drug intoxication - called EMS, almost had to complete temporary HD - went to [facility] Medications amlodipine 10 MG tablet Take 1 tablet (10 mg total) by mouth daily. 3 8 Active atorvastatin 40 MG tablet Take 1 tablet (40 mg total) by mouth daily. 0 8 Active metoprolol tartrate (LOPRESSOR) 25 MG tablet Take 1 tablet (25 mg total) by mouth every 12 (twelve) hours. 3 Active aspirin 81 MG chewable tablet Chew 1 tablet (81 mg total) by mouth daily. Active fenofibrate 160 MG tablet Take 1 tablet (160 mg total) by mouth daily. Active insulin glargine (BASAGLAR KWIKPEN) 100 UNIT/ML injection (PEN) Inject 20 Units into the skin nightly at bedtime. 18 mL 4 Active FLUoxetine (PROZAC) 10 MG capsule Take 1 capsule (10 mg total) by mouth daily. 4 Active linaGLIPtin (TRADJENTA) 5 MG tablet Take 1 tablet (5 mg total) by mouth daily. Active levETIRAcetam (KEPPRA) 1000 MG tablet Take 1 tablet (1,000 mg total) by mouth 2 (two) times daily. 60 tablet 4 Active Senna (SENOKOT) 8.6 MG tablet Take 1 tablet (8.6 mg total) by mouth. Active lacosamide (VIMPAT) 100 MG TabIndications: Seizure disorder (CMS/HCC HHS/HCC) Take 1 tablet (100 mg total) by mouth 2 (two) times daily. 60 tablet 5 Active lacosamide (VIMPAT) 100 MG TabIndications: Seizure disorder (CMS/HCC HHS/HCC) Take 1 tablet (100 mg total) by mouth 2 (two) times daily. 60 tablet 4 10/15/19 25 Discontinu ed(Reorder ) Active Problems Problem Noted Date Diagnosed Date Confusion 05/26/2024 Acute metabolic encephalopathy 03/15/2024 [place]-neck deformity of left finger(s) 02/25/2024 Obstructive sleep apnea syndrome 10/09/2022 Atrial fibrillation ([facility]) 08/26/2022 Obesity, Class II, BMI 35-39.9 07/12/2022 Paroxysmal atrial fibrillati on with rapid ventricular response ([facility]) 07/12/2022 Overview (02/13/2023): Last Assessment & Plan: Patient developed paroxysmal AFib while inpatient, was started on metoprolol 25 mg b.i.d. and Eliquis 5 mg b.i.d., which later placed on hold due to GI Tachycardia 07/11/2022 H/O: CVA (cerebrovascular accident) 07/08/2022 Altered mental status 07/07/2022 COVID-19 virus infection 08/27/2021 TIA (transient ischemic attack) 08/27/2021 Seizure disorder ([facility]CC) 10/26/2020 Hyperlipidemia 03/14/2019 Overview (02/13/2023): Last Assessment [...] mellitus wit h other diabetic kidney complication ([facility]) 04/28/2016 Overview (02/13/2023): Last Assessment & Plan: A1c 6.6 a year ago. Continue Lantus 12 units bedtime, Tradjenta 5 mg, glipizide 5 mg. Will check A1c level next labs. Monitor Accu-Cheks Encounters Date Type Department Care Team Description 10/20/2024 Telephone [facility] - [address], [address] [place] [phone] Justine Can MD Question 10/14/2024 [facility] - [address], [address] [place] [phone] Destiney Wheeler MA 10/14/2024 [facility]phone [facility] [address], [address] [place] [phone] Justine Can MD Medication 10/11/2024 10:20 AM CDT Office Visit [facility] [address], [address] [place] [address] Justine Can MD Follow Up (seizure) 10/11/2024 Travel 10/06/2024 Telephone [facility] - [address], [address] [place] [address] Justine Can MD Information 09/27/2024 11:15 AM CDT Telephone [facility], [address] [place] [address] Deandra Mcghee PA Holter Monitor 09/22/2024 Telephone [facility] - [address], [address] [place] [address] Justine Can MD Information 09/20/2024 10:00 AM WOOL HAT SANDING MACHINE OPERATOR Office Visit [facility], [address] [place] [address] Deandra Mcghee PA Follow Up; Atrial Fibrillation 09/20/2024 Telephone [facility] - [address], [address] [place] [address] Justine Can MD Appointment Request; Information 09/20/2024 Travel 08/29/2024 10:20 AM WOOL HAT SANDING MACHINE OPERATOR Office Visit [address], [address] [place] [address] Justine Can MD Follow Up 08/29/2024 Travel from Last 3 Months Immunizations Name Administration Dates Next Due COVID-19 Vaccine (Generic) 09/27/2020,09/06/2020 Influenza (Generic) 05/06/2016,04/20/2015,2013 Influenza Adult (Generic) 05/04/2023,,05/17/2019,05/11/2017,11/0 08/2015,06/25/2015 Pneumococcal (Pneumovax 23) 05/17/2019 Tdap (Generic) 04/01/2022 Family History Medical History Relation Comments Cancer Father bladder Diabetes Maternal Grandfather Hypertension Mother Kidney Disease Mother hemo Relation Status Comments Father Maternal Grandfather Mother Social History Tobacco Use Types Packs/Day Years Used Date Smoking Tobacco: Never Passive Smoke Exposure: Never Smokeless Tobacco: Never Tobacco Cessation:Counseling Given: Yes Alcohol Use Standard Drinks/Week Comments Not Currently 0 (1 standard drink = 0.6 oz pur e alcohol) [employer] Answer Date Recorded In the past 12 months has [employer], gas, oil, or water [employer] threatened to shut off services in your [...] Date Recorded Patient Health Questionnaire-2 Score 0 10/11/2024 Hunger Vital Sign Answer Date Recorded Within [...] any time in the past 12 m [facility], were you homeless or living in a long-term (including now)? No 05/27/2024 Comments No Sex and Gender Information Value Date Recorded Sex Assigned at Female 09/20/2024 9:45 AM WOOL HAT SANDING MACHINE OPERATOR Legal Sex Female 6:56 PM CDT Gender Identity Not on file Sexual Orientation Not on file Last Filed Vital Signs Vital Sign Reading Time Taken Comments Blood Pressure 129/72 10/11/2024 10:28 AM CDT Pulse 65 10/11/2024 10:28 AM CDT Temperature 36.1 C (96.9 F) 08/29/2024 10:39 AM WOOL HAT SANDING MACHINE OPERATOR Respiratory Rate 16 08/29/2024 10:39 AM WOOL HAT SANDING MACHINE OPERATOR Oxygen Saturation 98% 10/11/2024 10:28 AM CDT Inhaled Oxygen Concentration - - Weight 79.4 kg (175 lb) 10/11/2024 10:28 AM CDT Height 170.2 cm (5' 7 ) 09/20/2024 9:56 AM WOOL HAT SANDING MACHINE OPERATOR Body Mass Index 27.41 09/20/2024 9:56 AM WOOL HAT SANDING MACHINE OPERATOR Plan of Treatment Upcoming Encounters Date Type Department Care Team (Late st Contact Info) Description 12/15/2024 11:20 AM CDT Office Visit [facility] - [facility] [address] [facility] [address] [facility], [address] [place] [address] Justine Can MD [address] [place] [address] 03/02/2025 10:20 AM CDT Office Visit [facility] - [facility] [address], [address] [place] [phone] Justine Can MD [address] [place] [address] 04/04/2025 10:30 AM CDT Office Visit [facility], [address] [place], [place] [phone] Jefry Tineo MD Three [facility]. [address] [place] [address] Health Maintenance Due Date Last Done Comments [...] 11/17, 07/08/2022, Additional history exists COVID-19 Vaccine ( - 2023- season) 2024 09/27/2020, 09/06/2020 DTaP, Tdap and Td Vaccines (2 - Td or Tdap) 04/01/2032 04/01/2022 Hepatitis C Completed 07/24/2022 PHQ-2 (Physician [place]) Completed 10/11/2024 Meningococcal B Vaccine Aged Out No l onger eligible based on patient's age to complete this topic Meningococcal Vaccine Aged Out No aidee jayne eligible based on patient's age to complete this topic RSV Immunizations Under 20 Months Aged Out No longer eligible based on patient's age to complete this topic Medical Devices Implanted Type Area Ceramic Coater Device Identifier Shelf Expiration Date Model / Serial / Lot Plate Synthes 2.4 Va-Lcp Vlr Dist Radius 6h Hd/3h Shaft Right - [id number] Implanted:Qty: 1 on 11/24/2017 by Godwin Aguirre MD at [facility] Plate Right: Arm SYNTHES 11/24/2017 [id number] / / NA Screw Synthes 2.4 Locking Stardrive 14mm - [id number] Implanted:Qty: 2 on 11/24/2017 by Godwin Aguirre MD at [facility] Screw Right: Arm SYNTHES 11/24/2017 [id number] / / NA Screw Synthes 2.4 Locking Stardrive 16mm - [id number] Implanted:Qty: 1 on 11/24/2017 by Godwin Aguirre MD at [facility] Screw Right: Arm SYNTHES 11/24/2017 [id number] / / NA Screw Synthes 2.4 Locking Stardrive 18mm - [id number] Implanted:Qty: 1 on 11/24/2017 by Godwin Aguirre MD at [facility] Screw Right: Arm SYNTHES 11/24/2017 [id number] / / NA Screw Synthes 2.4 Locking Stardrive 20mm - [id number] Implanted:Qty: 1 on 11/24/2017 by Godwin Aguirre MD at [facility] Screw Right: Arm SYNTHES 11/24/2017 [id number] / / NA Screw Synthes 2.4 Locking Stardrive 18mm - [id number] Implanted:Qty: 1 on 11/24/2017 by Godwin Aguirre MD at [facility] Screw Right: Arm SYNTHES 11/24/2017 [id number] / / NA Screw Synthes 2.7 Cortical Self Tap 14mm - [id number] Implanted:Qty: 1 on 11/24/2017 by Godwin Aguirre MD at [facility] Right: Arm SYNTHES 11/24/2017 [id number] / / NA Screw Synthes 2.7 Cortical Self Tap 12mm - [id number] Implanted:Qty: 2 on 11/24/2017 by Godwin Aguirre MD at [facility] Right: Arm SYNTHES 11/24/2017 [id number] / / NA Explanted Type Area Ceramic Coater Device Identifier Shelf Expiration Date Model / Serial / Lot Wire Synthes 1.5mm Jenn 150mm W/Trocar Point - [id number] Implanted:Qty: 1 Explanted:Qty: 1 on 11/24/2017 by Godwin Aguirre MD at [facility] Right: Arm SYNTHES 11/24/2017 [id number] / / [...] Documents on File Type Date Recorded Patient President And Chief Commercial Officer Expl anation Advance Directives and Livin g Will 06/01/2024 3:14 PM * Full Code (Latest Code Status on File) Date Activated Date Inactivated Comments 05/26/2024 3:19 PM 05/31/2024 8:06 PM * Full Code Date Activated Date Inactivated Comments 03/15/2024 8:38 AM 03/19/2024 4:15 PM Healthcare Agents on File Name Relationship Healthcare Agent Relationshi p Communication Claudia DEBBY Marques Daughter Health Care Agent Estrella (1st Alt) Flach Relative First Alter edward Health Care Agent Care Teams Data Coordinator Relationship Specialty Start Date End Date Allie Sinclair PA-C PCP - General PHYSICIAN DIE MAINTENANCE 01/29/23
--- OUTSIDE RECORDS SUMMARY | 2024-10-21 11:54 | XMS_ITS | Encounter Summary ---
Author Organization [facility] Address [address] [place] [address] Care Team Providers Care Plant Manager Name Role Phone Allie Sinclair PA-C Primary Care Provider [phone]- [phone] Reason for Visit * Reason Onset Date Comments Question 10/20/2024 Encounter Details Date Type Department Care Team (Late st Contact Info) Description 10/20/2024 Telephone [facility] Mult[facility]ty Care - [address], [address] [place] [phone] Justine Can MD [address] [place] [address] Question Social History Tobacco Use Types Packs/Day Years Used Date Smoking Tobacco: Never Passive Smoke Exposure: Never Smokeless Tobacco: Never Alcohol Use Standard Drinks/Week Comments Not Currently 0 (1 standard drink = 0.6 oz pur e alcohol) socially [facility] Utilities Answer Date Recorded In the past 12 months has e electric, gas, oil, or water company threatened to shut off services in your [...] any time in the past 12 m [facility], were you homeless or living in a senior living (including now)? No 05/27/2024 Comments No Sex and Gender Information Value Date Recorded Sex Assigned at Female 09/20/2024 9:45 AM DIRECTOR REGULATORY AGENCY Legal Sex Female 6:56 PM CDT Gender Identity Not on file Sexual Orientation Not on file documented as of this encounter Functional Status * Are you deaf or do you have serious difficulty hearing Answer Date of Assessment Author Status No 05/26/2024 10:00 PM Sera Dai RN Active * Are you blind or do you have serious difficulty seeing, even when wearing glasses? Answer Date of Assessment Author Status No 05/26/2024 10:00 PM Sera Dai RN Active * Do you have serious difficulty walking or climbing stairs? Answer Date of Assessment Author Status Yes 05/26/2024 10:00 PM Sera Dai RN Active * Do you have difficulty dressing or bathing? Answer Date of Assessment Author Status Yes 05/26/2024 10:00 PM Sera Dai RN Active * Because of a physical, mental, or emotional condition, do you have difficulty doing errands alone such as visiting a doctor's office or shopping? Answer Date of Assessment Author Status Yes 05/26/2024 10:00 PM Sera Dai RN Active documented as of this encounter Mental Status * Because of a physical, mental, or emotional condition, do you have serious difficulty concentrating, remembering, or making decisions? Answer Entry Date Author Status Yes 05/26/2024 10:00 PM Sera Dai RN Active documented in this encounter Progress Notes * Denisse Triplett - 10/20/2024 2:33 PM CDT Patient's daughter called and needs the physician name and phone number to the physician Kerline was referred to. documented in this encounter Plan of Treatment Upcoming Encounters Date Type Department Care Team (Late st Contact Info) Description 12/15/2024 11:20 AM CDT Office Visit [facility] Multispecialty Care - [address], [address] [place] [address] Justine Can MD [address] [place] [address], [place] [address] 03/02/2025 10:20 AM CDT Office Visit [facility] - [facility] [address] [facility], [address] [place] [address] Justine Can MD [address] [place] [address] 04/04/2025 10:30 AM CDT Office Visit [facility], [address] [place] [address] Jefyr Tineo MD Three [facility]. [address] [place] [address] documented as of this encounter Visit Diagnoses Not on filedocumented in this encounter Care Teams Plant Manager Relationship Specialty Start Date End Date Allie Sinclair PA-C PCP - General PHYSICIAN SUPERVISOR EPOXY FABRICATION 01/29/23 documented as of this encounter
--- OUTSIDE RECORDS SUMMARY | 2024-10-21 11:54 | XMS_ITS | Referral Summary ---
Author Organization [facility] 8 [place] [employer] [place] Address [address] [place] [phone] Care Team Providers Care Climate Change Analyst Name Role Phone Marcelino Gore Primary Care Provider + Allergies Active Allergy Reactions Criticality Noted Date Comments Aspartame Diarrhea Medium 07/26/2022 Morphine Other (See comments) High 09/10/2023 Pt had bad experience: Acute drug intoxication - called EMS, almost had to complete temporary HD - went to [facility] Medications acetaminophen (TYLENOL EXTRA STRENGTH) 500 mg [...] 1 tablet (5 mg total) by mouth grocery worker before breakfast 4 Active fenofibrate (TRIGLIDE) 160 mg tabletIndication s:hyperlipidemia Take 1 tablet (160 mg total) by mouth grocery worker before breakfast Active dapagliflozin propanediol (FARXIGA) 10 mg tabletIndication s:type 2 diabetes mellitus Take 1 tablet (10 mg total) by mouth grocery worker before breakfast 3 Active aspirin 81 mg chewable tabletIndication s:prevention of thrombosis Take 1 tablet (81 mg total) by mouth grocery worker before breakfast 2 Active amLODIPine (NORVASC) 10 mg tabletIndication s:hypertension Take 1 tablet (10 mg total) by mouth grocery worker before breakfast 8 Active miconazole 2 % [...] Active Problems Problem Noted Date Diagnosed Date [place]-neck deformity of left finger(s) 02/25/2024 Left radial [...] 08/09/2022 Assessment & Plan (08/13/2022 6:43 AM RETAIL STORE MANAGER): Has erythema, warmth with more drainage. Will start on amoxicillin 500 mg b.i.d. x5 days, doxycycline 100 mg b.i.d. x5 days, started on 08/09/22. Continue pain management with Tylenol 650 Q 6. Continue wound care. Assessment & Plan (08/09/2022 6:49 PM RETAIL STORE MANAGER): Has erythema, warmth with more drainage. Will start on amoxicillin 500 mg b.i.d. x5 days, doxycycline 100 mg b.i.d. x5 days. Continue pain management with Tylenol 650 Q 6. Continue wound care. Moderate vascular dementia w ithout behavioral disturbance, psychotic disturbance, mood disturbance, or anxiety 08/09/2022 Assessment & Plan (08/13/2022 6:45 AM RETAIL STORE MANAGER): Patient is pleasantly confused. No behaviors. Slums 16/30. Continue Zoloft 100 mg daily. Continue supportive care. Patient need supervision and care after discharge Assessment & Plan (08/09/2022 6:58 PM RETAIL STORE MANAGER): Patient is pleasantly confused. No behaviors. Slums 16/30. Continue Zoloft 100 mg daily. Continue supportive care. Patient need supervision and care after discharge Closed fracture of shaft of left humerus with routine healing 08/07/2022 Assessment & Plan (08/13/2022 6:42 AM RETAIL STORE MANAGER): Due to fall. Imaging revealed left humeral shaft fracture, complicated with radial nerve palsy. Orthopedic managed conservatively with brace. SHAMIKA PRADHAN. Pain management with Tylenol 650 Q 6. Patient had follow-up with Dr. Thomas today. Recommended to continue Left arm brace, according to special instructions for placement and cleaning.Pt will be dc today to [facility]. Assessment & Plan (08/09/2022 6:51 PM RETAIL STORE MANAGER): Pain overall controlled. Reminded patient that has follow-up with Dr. Thomas 08/11/2022. Daughter to provide transportation. Assessment & Plan (08/07/2022 6:17 AM RETAIL STORE MANAGER): Due to fall. Imaging revealed left humeral shaft fracture, complicated with radial nerve palsy. Orthopedic managed conservatively with brace. SHAMIKA PRADHAN. Pain management with Tylenol 650 Q 6. Patient follow-up with Dr. Thomas on 08/11/22 for repeat imaging and treatment plan Paroxysmal A-fib 08/07/2022 Assessment & Plan (08/13/2022 6:43 AM RETAIL STORE MANAGER): Patient developed paroxysmal AFib while inpatient, was started on metoprolol 25 mg b.i.d. and Eliquis 5 mg b.i.d., which later placed on hold due to GI Assessment & Plan (08/07/2022 6:18 AM RETAIL STORE MANAGER): Patient developed paroxysmal AFib while inpatient, was started on metoprolol 25 mg b.i.d. and Eliquis 5 mg b.i.d., which later placed on hold due to GI Gastrointestinal hemorrhage with melena 08/07/19 Assessment & Plan (08/13/2022 6:46 AM RETAIL STORE MANAGER): Patient was started on Eliquis for AFib, followed by acute blood loss anemia. Home med Plavix, Eliquis placed on hold. EGD done showed multiple gastric and duodenal ulcers. Status post blood transfusions. H pylori negative. Denies any melena or GI bleed now. Continue pantoprazole 40 mg b.i.d.. Avoid NSAIDs, AC till follow-up with GI. Assessment & Plan (08/07/2022 6:32 AM RETAIL STORE MANAGER): Patient was started on Eliquis for AFib, [...] 08/07/2022 Assessment & Plan (08/13/2022 6:43 AM RETAIL STORE MANAGER): 2/2 GIB (gastric, duodenal ulcers). Received blood transfusions. Hold NSAIDs, anticoagulants. CBC check a.m. Assessment & Plan (08/07/2022 6:20 AM RETAIL STORE MANAGER): 2/2 GIB (gastric, duodenal ulcers). Received blood transfusions. Hold NSAIDs, anticoagulants. CBC check a.m. Acute kidney injury superimposed on chronic kidn ey disease 08/07/2022 Assessment & Plan (08/13/2022 6:45 AM RETAIL STORE MANAGER): Baseline creatinine around 1. Was elevated while inpatient. Will hold chlorthalidone now, till BMP results. If creatinine elevated may consider holding lisinopril as well. Avoid nephrotoxic drugs. Monitor renal function Assessment & Plan (08/07/2022 6:30 AM RETAIL STORE MANAGER): Baseline creatinine around 1. Was elevated while [...] 08/27/2021 Assessment & Plan (08/13/2022 6:45 AM RETAIL STORE MANAGER): Patient currently asymptomatic. No seizure episode. Continue home med Keppra 750 mg b.i.d.. Will check Keppra level next labs. Assessment & Plan (08/07/2022 6:31 AM RETAIL STORE MANAGER): Patient currently asymptomatic. No seizure episode. Continue home med Keppra 750 mg b.i.d.. Will check Keppra level next labs. Depressive disorder 08/27/2021 Assessment & Plan (08/13/2022 6:45 AM RETAIL STORE MANAGER): Mood currently stable. Continue home med sertraline 100 mg daily. Assessment & Plan (08/07/2022 6:31 AM RETAIL STORE MANAGER): Mood currently stable. Continue home med sertraline [...] 03/14/2019 Assessment & Plan (08/13/2022 6:44 AM RETAIL STORE MANAGER): Continue Lipitor 40 mg daily, Zetia Assessment & Plan (08/07/2022 6:32 AM RETAIL STORE MANAGER): Continue Lipitor 40 mg daily, Zetia Encounter for screening for cardiovascular disor ders 03/14/2019 Hypomagnesemia 03/14/2019 Palpitations 03/14/2019 Essential hypertension 03/08/2019 Assessment & Plan (08/13/2022 6:44 AM RETAIL STORE MANAGER): Blood pressure and heart rate fluctuates. Continue amlodipine 10 mg, lisinopril 40 mg, metoprolol 25 mg b.i.d. added due to AFib while inpatient. Will hold down 25 mg for now due to elevated creatinine last labs. Monitor blood pressure, adjust meds accordingly. Assessment & Plan (08/07/2022 6:22 AM RETAIL STORE MANAGER): Blood pressure and heart rate fluctuates. Continue [...] 04/28/2016 Assessment & Plan (08/13/2022 6:44 AM RETAIL STORE MANAGER): A1c 6.6 a year ago. Continue Lantus 12 units bedtime, Tradjenta 5 mg, glipizide 5 mg. Will check A1c level next labs. Monitor Accu-Cheks Assessment & Plan (08/07/2022 6:26 AM RETAIL STORE MANAGER): A1c 6.6 a year ago. Continue Lantus [...] on file Legal Sex Female 3:49 AM RETAIL STORE MANAGER Gender Identity Not on file Sexual Orientation [...] testing HEMOGLOBIN A1C Routine 08/28/2021 4:53 AM RETAIL STORE MANAGER OCCULT BLOOD, FECAL (FIT) Routine 03/18/2018 8:45 [...] BLOOD ORDERABLES Final Re sult BLAYNE VIERA [address] [facility] Department [place] [address] * (ABNORMAL) Hemoglobin A1c (08/28/2021 4:53 AM RETAIL STORE MANAGER) [facility] Hgb A1C 6.6(H) 4.0 - 5.6 % BLAYNE Comment:Testing performed by : [address] [address] Estimated Average Glucose 143 mg/dL BLAYNE Comment: The ADA recommends reporting an estimated Average Glucose (eAG) with all Hemoglobin A1c results using the equation derived from a study of 507 normal and diabetic adults. Minority populations were underrepresented and children were not included. (Diabetes Care 31:2626-5934, 2008). The eAG is not equivalent to a fasting glucose. Testing performed by: [facility], [address] [place] [address]., [id number] Blood 08/28/2021 4:53 AM RETAIL STORE MANAGER 08/28/2021 5:00 AM RETAIL STORE MANAGER Janet Guan DO LAB BLOOD ORDERABLES Final [facility] sult [facility] [address] [facility] Department [place] [address] * Occult blood, fecal non neoplasm screening (03/18/2018 8:45 PM CDT) [facility] Stool Occult Blood POSITIVE NEGATIVE 03/18/2018 8:45 PM CDT 03/18/2018 10:08 PM CDT Kassandra Saab NP LAB BODY FLUIDS AND STOOLS ORDER JIM Final Result [facility] HISTORICAL RESULTS * (ABNORMAL) TNI with LIPID PANEL (11/29/2016 3:21 PM CDT) [facility] Troponin I < 0.300 0.000 - 0.300 [...] - 130 mg/dL 11/29/2016 3:54 PM CDT [facility] HISTORICAL RESULTS Comment:High Risk > 159 mg/d L Cholesterol/HDL Ratio 2.6 Comment: Cholesterol / HDL Ratio 3.5:1 or less is desirable. Cholesterol / HDL Ratio greater than 5:1 is considered higher risk for developing heart disease. 11/29/2016 3:21 PM CDT 11/29/2016 3:28 PM CDT Narrative [facility] HISTORICAL RESULTS - 11/29/2016 3:54 PM CDT us Lester Marcelino Mccann MD LAB BLOOD ORDERABLES Final Result [facility] HISTORICAL RESULTS from Last 3 Months or Most Recently Relevant to Health Maintenance Insurance [facility] MEDICARE MEDICARE [place] IDMN MEDICARE Advance Directives For more information, please contact: [phone] * Full Code (Latest Code Status on File) Date Activated Date Inactivated Comments 11/05/2022 11:01 AM 11/05/2022 5:09 PM Healthcare Agents on File Name Relationship Healthcare Agent Relationsme p Communication Prakash Olson Friend Second Alternate Health Care Agent Care Teams Climate Change Analyst Relationship Specialty Start Date End Date Marcelino Gore PA [address] [place] [id number] PCP - General 09/08/19
--- OUTSIDE RECORDS SUMMARY | 2024-10-21 11:54 | XMS_ITS | Clinical Summary ---
Author Organization [facility] 8 [place] [employer] [place] Address [address] [place] [id number] Care Team Providers Care Outside Food Server Name Role Phone Marcelino Gore Primary Care Provider + Allergies Active Allergy Reactions Criticality Noted Date Comments Aspartame Diarrhea Medium 07/26/2022 Morphine Other (See comments) High 09/10/2023 Pt had bad experience: Acute drug intoxication - called EMS, almost had to complete temporary HD - went to [facility] Medications acetaminophen (TYLENOL EXTRA STRENGTH) 500 [...] 1 tablet (5 mg total) by mouth philosophy instructor before breakfast 4 Active fenofibrate (TRIGLIDE) 160 mg tabletIndication s:hyperlipidemia Take 1 tablet (160 mg total) by mouth philosophy instructor before breakfast Active dapagliflozin propanediol (FARXIGA) 10 mg tabletIndication s:type 2 diabetes mellitus Take 1 tablet (10 mg total) by mouth philosophy instructor before breakfast 3 Active aspirin 81 mg chewable tabletIndication s:prevention of thrombosis Take 1 tablet (81 mg total) by mouth philosophy instructor before breakfast 2 Active amLODIPine (NORVASC) 10 mg tabletIndication s:hypertension Take 1 tablet (10 mg total) by mouth philosophy instructor before breakfast 8 Active miconazole 2 % [...] Active Problems Problem Noted Date Diagnosed Date [place]-neck deformity of left finger(s) 02/25/2024 Left radial [...] 08/09/2022 Assessment & Plan (08/13/2022 6:43 AM SENIOR APPLICATION SECURITY CONSULTANT): Has erythema, warmth with more drainage. Will start on amoxicillin 500 mg b.i.d. x5 days, doxycycline 100 mg b.i.d. x5 days, started on 08/09/22. Continue pain management with Tylenol 650 Q 6. Continue wound care. Assessment & Plan (08/09/2022 6:49 PM SENIOR APPLICATION SECURITY CONSULTANT): Has erythema, warmth with more drainage. Will start on amoxicillin 500 mg b.i.d. x5 days, doxycycline 100 mg b.i.d. x5 days. Continue pain management with Tylenol 650 Q 6. Continue wound care. Moderate vascular dementia w ithout behavioral disturbance, psychotic disturbance, mood disturbance, or anxiety 08/09/2022 Assessment & Plan (08/13/2022 6:45 AM SENIOR APPLICATION SECURITY CONSULTANT): Patient is pleasantly confused. No behaviors. Slums 16/30. Continue Zoloft 100 mg daily. Continue supportive care. Patient need supervision and care after discharge Assessment & Plan (08/09/2022 6:58 PM SENIOR APPLICATION SECURITY CONSULTANT): Patient is pleasantly confused. No behaviors. Slums 16/30. Continue Zoloft 100 mg daily. Continue supportive care. Patient need supervision and care after discharge Closed fracture of shaft of left humerus with routine healing 08/07/2022 Assessment & Plan (08/13/2022 6:42 AM SENIOR APPLICATION SECURITY CONSULTANT): Due to fall. Imaging revealed left humeral shaft fracture, complicated with radial nerve palsy. Orthopedic managed conservatively with brace. SHAMIKA PRADHAN. Pain management with Tylenol 650 Q 6. Patient had follow-up with Dr. Thomas today. Recommended to continue Left arm brace, according to special instructions for placement and cleaning.Pt will be dc today to [facility]. Assessment & Plan (08/09/2022 6:51 PM SENIOR APPLICATION SECURITY CONSULTANT): Pain overall controlled. Reminded patient that has follow-up with Dr. Thomas 08/11/2022. Daughter to provide transportation. Assessment & Plan (08/07/2022 6:17 AM SENIOR APPLICATION SECURITY CONSULTANT): Due to fall. Imaging revealed left humeral shaft fracture, complicated with radial nerve palsy. Orthopedic managed conservatively with brace. SHAMIKA PRADHAN. Pain management with Tylenol 650 Q 6. Patient follow-up with Dr. Thomas on 08/11/22 for repeat imaging and treatment plan Paroxysmal A-fib 08/07/2022 Assessment & Plan (08/13/2022 6:43 AM SENIOR APPLICATION SECURITY CONSULTANT): Patient developed paroxysmal AFib while inpatient, was started on metoprolol 25 mg b.i.d. and Eliquis 5 mg b.i.d., which later placed on hold due to GI Assessment & Plan (08/07/2022 6:18 AM SENIOR APPLICATION SECURITY CONSULTANT): Patient developed paroxysmal AFib while inpatient, was started on metoprolol 25 mg b.i.d. and Eliquis 5 mg b.i.d., which later placed on hold due to GI Gastrointestinal hemorrhage with melena 08/07/19 Assessment & Plan (08/13/2022 6:46 AM SENIOR APPLICATION SECURITY CONSULTANT): Patient was started on Eliquis for AFib, followed by acute blood loss anemia. Home med Plavix, Eliquis placed on hold. EGD done showed multiple gastric and duodenal ulcers. Status post blood transfusions. H pylori negative. Denies any melena or GI bleed now. Continue pantoprazole 40 mg b.i.d.. Avoid NSAIDs, AC till follow-up with GI. Assessment & Plan (08/07/2022 6:32 AM SENIOR APPLICATION SECURITY CONSULTANT): Patient was started on Eliquis for AFib, [...] 08/07/2022 Assessment & Plan (08/13/2022 6:43 AM SENIOR APPLICATION SECURITY CONSULTANT): 2/2 GIB (gastric, duodenal ulcers). Received blood transfusions. Hold NSAIDs, anticoagulants. CBC check a.m. Assessment & Plan (08/07/2022 6:20 AM SENIOR APPLICATION SECURITY CONSULTANT): 2/2 GIB (gastric, duodenal ulcers). Received blood transfusions. Hold NSAIDs, anticoagulants. CBC check a.m. Acute kidney injury superimposed on chronic kidn ey disease 08/07/2022 Assessment & Plan (08/13/2022 6:45 AM SENIOR APPLICATION SECURITY CONSULTANT): Baseline creatinine around 1. Was elevated while inpatient. Will hold chlorthalidone now, till BMP results. If creatinine elevated may consider holding lisinopril as well. Avoid nephrotoxic drugs. Monitor renal function Assessment & Plan (08/07/2022 6:30 AM SENIOR APPLICATION SECURITY CONSULTANT): Baseline creatinine around 1. Was elevated while [...] 08/27/2021 Assessment & Plan (08/13/2022 6:45 AM SENIOR APPLICATION SECURITY CONSULTANT): Patient currently asymptomatic. No seizure episode. Continue home med Keppra 750 mg b.i.d.. Will check Keppra level next labs. Assessment & Plan (08/07/2022 6:31 AM SENIOR APPLICATION SECURITY CONSULTANT): Patient currently asymptomatic. No seizure episode. Continue home med Keppra 750 mg b.i.d.. Will check Keppra level next labs. Depressive disorder 08/27/2021 Assessment & Plan (08/13/2022 6:45 AM SENIOR APPLICATION SECURITY CONSULTANT): Mood currently stable. Continue home med sertraline 100 mg daily. Assessment & Plan (08/07/2022 6:31 AM SENIOR APPLICATION SECURITY CONSULTANT): Mood currently stable. Continue home med sertraline [...] 03/14/2019 Assessment & Plan (08/13/2022 6:44 AM SENIOR APPLICATION SECURITY CONSULTANT): Continue Lipitor 40 mg daily, Zetia Assessment & Plan (08/07/2022 6:32 AM SENIOR APPLICATION SECURITY CONSULTANT): Continue Lipitor 40 mg daily, Zetia Encounter for screening for cardiovascular disor ders 03/14/2019 Hypomagnesemia 03/14/2019 Palpitations 03/14/2019 Essential hypertension 03/08/2019 Assessment & Plan (08/13/2022 6:44 AM SENIOR APPLICATION SECURITY CONSULTANT): Blood pressure and heart rate fluctuates. Continue amlodipine 10 mg, lisinopril 40 mg, metoprolol 25 mg b.i.d. added due to AFib while inpatient. Will hold down 25 mg for now due to elevated creatinine last labs. Monitor blood pressure, adjust meds accordingly. Assessment & Plan (08/07/2022 6:22 AM SENIOR APPLICATION SECURITY CONSULTANT): Blood pressure and heart rate fluctuates. Continue [...] 04/28/2016 Assessment & Plan (08/13/2022 6:44 AM SENIOR APPLICATION SECURITY CONSULTANT): A1c 6.6 a year ago. Continue Lantus 12 units bedtime, Tradjenta 5 mg, glipizide 5 mg. Will check A1c level next labs. Monitor Accu-Cheks Assessment & Plan (08/07/2022 6:26 AM SENIOR APPLICATION SECURITY CONSULTANT): A1c 6.6 a year ago. Continue Lantus [...] on file Legal Sex Female 3:49 AM SENIOR APPLICATION SECURITY CONSULTANT Gender Identity Not on file Sexual Orientation [...] testing HEMOGLOBIN A1C Routine 08/28/2021 4:53 AM SENIOR APPLICATION SECURITY CONSULTANT OCCULT BLOOD, FECAL (FIT) Routine 03/18/2018 8:45 [...] BLOOD ORDERABLES Final Re sult BLAYNE VIERA [address] [facility] Department [place] [address] * (ABNORMAL) Hemoglobin A1c (08/28/2021 4:53 AM SENIOR APPLICATION SECURITY CONSULTANT) Hgb A1C 6.6(H) 4.0 - 5.6 % BLAYNE Comment:Testing performed by : [facility], [address] [place] [address]., [id number] Estimated Average Glucose 143 mg/dL BLAYNE Comment: The ADA recommends reporting an estimated Average Glucose (eAG) with all Hemoglobin A1c results using the equation derived from a study of 507 normal and diabetic adults. Minority populations were underrepresented and children were not included. (Diabetes Care 31:1258-6620, 2008). The eAG is not equivalent to a fasting glucose. Testing performed by: [facility], [address] [place] [address]., [id number] Blood 08/28/2021 4:53 AM SENIOR APPLICATION SECURITY CONSULTANT 08/28/2021 5:00 AM SENIOR APPLICATION SECURITY CONSULTANT Janet Guan DO LAB BLOOD ORDERABLES Final Re sult Performing Organization Address City/[facility]/ZIP Co de Phone Number [facility] [address] [facility] Department [place] [address] * Occult blood, fecal non neoplasm screening (03/18/2018 8:45 PM CDT) [facility] Stool Occult Blood POSITIVE NEGATIVE 03/18/2018 8:45 PM CDT 03/18/2018 10:08 PM CDT Kassandra Saab NP LAB BODY FLUIDS AND STOOLS ORDER JIM Final Result [facility] HISTORICAL RESULTS * (ABNORMAL) TNI with LIPID PANEL (11/29/2016 3:21 PM CDT) [facility] Troponin I < 0.300 0.000 - [...] PM CDT 11/29/2016 3:28 PM CDT Narrative [facility] HISTORICAL RESULTS - 11/29/2016 3:54 PM CDT us Lester Marcelino Mccann MD LAB BLOOD ORDERABLES Final Result [facility] HISTORICAL RESULTS from Last 3 Months or Most Recently Relevant to Health Maintenance Insurance MEDICARE MEDICARE IDMI IDMI MEDICARE Advance Directives For more information, please contact: [phone] * Full Code (Latest Code Status on File) Date Activated Date Inactivated Comments 11/05/2022 11:01 AM 11/05/2022 5:09 PM Healthcare Agents on File Name Relationship Healthcare Agent [facility] Communication Prakash Olson Friend Second Alternate Health Care Agent Care Teams Outside Food Server Relationship Specialty Start Date End Date Marcelino Gore PA [address] [place] [id number] PCP - General 09/08/19
--- OUTSIDE RECORDS SUMMARY | 2024-10-21 11:55 | XMS_ITS | Clinical Summary ---
Author Organization [facility] Address [address] [place] [address] Phone Care Team Providers Care Insurance Service Representative Name Role Phone Marcelino Gore MD Primary Care Provider [phone] Allergies No known active allergies Medications Medication [...] Type Department Care Team Description 08/21/2024 Refill [facility] [address] [place] [address] Lizzeth Mohan NP 08/18/2024 9:00 AM ACCOUNTS PAYABLE PROCESSOR Office Visit [facility] [address] [place] [address] Lizzeth Mohan NP Stage 3a chronic kidney disease (CMS-HCC) (Primary Dx); Hypertensive chronic kidney disease with stage 1 through stage 4 chronic kidney disease, or unspecified chronic kidney disease; Secondary hyperparathyroidism of renal origin (CMS-HCC); Type 2 diabetes mellitus with other diabetic kidney complication ([facility]-HCC); Urinary tract infectious disease; Candidiasis of skin 08/16/2024 Orders Only [facility] [address] [place] [address] Lizzeth Mohan NP from Last 3 Months [...] Comments Blood Pressure 122/66 08/18/2024 8:53 AM ACCOUNTS PAYABLE PROCESSOR Pulse 62 08/18/2024 8:53 AM ACCOUNTS PAYABLE PROCESSOR Temperature - - Respiratory Rate - - Oxygen Saturation 98% 03/12/2023 1:47 PM CDT Inhaled Oxygen Concentration - - Weight 82.1 kg (181 lb) 08/18/2024 8:53 AM ACCOUNTS PAYABLE PROCESSOR Height 170.2 cm (5' 7 ) 08/18/2024 8:53 AM ACCOUNTS PAYABLE PROCESSOR Body Mass Index 28.35 08/18/2024 8:53 AM ACCOUNTS PAYABLE PROCESSOR Plan of Treatment Upcoming Encounters Date Type Department Care Team (Late st Contact Info) Description 11/10/2024 1:00 PM CDT Office Visit [facility] [address] [facility] 1 [place] [address] Lizzeth Mohan NP [address] [facility] 1 [place] [address] Health Maintenance Due Date Last Done Comments Pneumococcal PPSV23/PCV13 65 + Years / High and Highest Risk (1 of 4 - PCV) 01/14/1960 Diabetic Foot Exam 01/14/1964 Ophthalmology Exam 01/14/1964 Influenza Vaccine (#1) 2024 3, 05/10/2021, 05/17/2019, Additional history exists Procedures Procedure Name Priority Date/Time Associated Diagnosis Comments SPECIMEN STATUS REPORT Routine 08/16/2024 1:26 PM ACCOUNTS PAYABLE PROCESSOR PTH, INTACT Routine 08/16/2024 1:26 PM ACCOUNTS PAYABLE PROCESSOR TEXT / FREE TEXT - RESULT Routine 08/16/2024 1:26 PM ACCOUNTS PAYABLE PROCESSOR URINE CULTURE, ROUTINE Routine 08/16/2024 1:26 PM ACCOUNTS PAYABLE PROCESSOR LITHOLINK CKD PROGRAM Routine 08/16/2024 1:26 PM ACCOUNTS PAYABLE PROCESSOR RENAL FUNCTION PANEL (RFP) Routine 08/16/2024 1:26 PM ACCOUNTS PAYABLE PROCESSOR MICROSCOPIC EXAMINATION Routine 08/16/2024 1:26 PM ACCOUNTS PAYABLE PROCESSOR URINALYSIS ROUTINE W/ REFLEX MICROSCOPIC Routine 08/16/2024 1:26 PM ACCOUNTS PAYABLE PROCESSOR CBC/DIFF AMBIGUOUS DEFAULT Routine 08/16/2024 1:26 PM ACCOUNTS PAYABLE PROCESSOR from Last 3 Months Results * PTH, Intact (08/16/2024 1:26 PM ACCOUNTS PAYABLE PROCESSOR) PTH, Intact, Serum/Plasma 24 15 - 65 pg/mL [facility] 1 08/16/2024 1:26 PM ACCOUNTS PAYABLE PROCESSOR 08/15/2024 11:00 PM ACCOUNTS PAYABLE PROCESSOR Narrative [facility] - 08/22/2024 4:07 PM ACCOUNTS PAYABLE PROCESSOR Performed at: [address] [place] [id number] Pacs Specialist: Kvng Roca PhD, Phone: [phone] Lizzeth Mohan NP LAB BLOOD ORDERABLES [facility] 1 * Specimen Status Report (08/16/2024 1:26 PM ACCOUNTS PAYABLE PROCESSOR) Pathologist [facility] Specimen Status Report Comment [facility] 1 Comment: Ambig Abbrev RP10 Default Ambig Abbrev RP10 Default A hand-written panel/profile was received from your office. In accordance with the [facility] Ambiguous Test Code Policy dated January 2003, we have completed your order by using the closest currently or formerly recognized AMA panel. We have assigned Renal Panel (10), Test Code #[id number] to this request. If this is not the testing you wished to receive on this specimen, please [facility] the [facility] to clarify the test order. We appreciate your business. 08/16/2024 1:26 PM ACCOUNTS PAYABLE PROCESSOR 08/15/2024 11:00 PM ACCOUNTS PAYABLE PROCESSOR Narrative [facility] - 08/22/2024 4:07 PM ACCOUNTS PAYABLE PROCESSOR Performed at: [address] [place] [id number] Pacs Specialist: Kvng Roca PhD, Phone: [phone] Lizzeth Edwards Marques REBOLLEDO LAB BLOOD ORDERABLES [facility] 1 * (ABNORMAL) Text / Free Text - Result (08/16/2024 1:26 PM ACCOUNTS PAYABLE PROCESSOR) [facility] Reference lab test results Enterococcus faecalis(A) [facility] 1 Comment: For Enterococcus species, aminoglycosides (except for high-level resistance screening), cephalosporins, clindamycin, and trimethoprim-sulfamethoxazole are not effective clinically. (CLSI, L072-A16, 2016) 25,000-50,000 colony forming units per mL Enterococci susceptible to penicillin are predictably susceptible to ampicillin, amoxicillin, ampicillin-sulbactam, amoxicillin-clavulanate, and piperacillin-tazobactam for yiv-uaol-jozmvxpry producing enterococci. (CLSI 2018) Note: this isolate [...] Trimethoprim/Sulfa S Vancomycin S 08/16/2024 1:26 PM ACCOUNTS PAYABLE PROCESSOR 08/15/2024 11:00 PM ACCOUNTS PAYABLE PROCESSOR Narrative [facility] - 08/22/2024 4:07 PM ACCOUNTS PAYABLE PROCESSOR Performed at: 01 - [address] [id number] Pacs Specialist: Kvng Roca PhD, Phone: [phone] Lizzeth Edwards Marques REBOLLEDO LAB BLOOD ORDERABLES [facility] * CBC/Diff Ambiguous Default (08/16/2024 1:26 PM ACCOUNTS PAYABLE PROCESSOR) Pathologist [facility] Leukocytes, Blood 6.5 3.4 - 10.8 x10E3/uL [...] have assigned CBC with Differential/Platelet, Test Code #[id number] to this request. If this is not the testing you wished to receive on this specimen, please contact the [facility] to clarify the test order. We appreciate your business. 08/16/2024 1:26 PM ACCOUNTS PAYABLE PROCESSOR 08/15/2024 11:00 PM ACCOUNTS PAYABLE PROCESSOR Narrative [facility] - 08/22/2024 4:07 PM ACCOUNTS PAYABLE PROCESSOR Performed at: [address] [id number] Pacs Specialist: Kvng Roca PhD, Phone: [phone] Specimen Comment: A courtesy copy of this report has been sent to [phone] Lizzeth Mohan NP LAB [facility]LOOD [facility]AB[facility] * LithoLink CKD Program (08/16/2024 1:26 PM ACCOUNTS PAYABLE PROCESSOR) Interpretation Note [facility] 2 Comment: Rn Ed's Note: CBC Note: A hand-written panel/profile was received from your office. In accordance with the [facility] Ambiguous Test Code Policy dated January 2003, we have assigned CBC with Differential/Platelet, Test Code #[id number] to this request. If this is not the testing you wished to receive on this specimen, please contact the [facility] to clarify the test order. We appreciate your business. Rn Ed's Note: Edvin Carrero RP10 Default: A hand-written panel/profile was received from your office. In accordance with the [facility] Ambiguous Test Code Policy dated January 2003, we have completed your order by using the closest currently or formerly recognized AMA panel. We have assigned Renal Panel (10), Test Code #[id number] to this request. If this is not the testing you wished to receive on this specimen, please contact the [facility] to clarify the test order. We appreciate your business. Supplemental report is available. PDF Image . [facility] 2 08/16/2024 1:26 PM ACCOUNTS PAYABLE PROCESSOR 08/15/2024 11:00 PM ACCOUNTS PAYABLE PROCESSOR Narrative [facility] - 08/22/2024 4:07 PM ACCOUNTS PAYABLE PROCESSOR Performed at: [facility] Clinical / Digital [address] [place], [place] [id number] Pacs Specialist: Shayy Zimmerman MD, Phone: [phone] Lizzeth Mohan JAMMER HOOKER LAB BLOOD ORDERABLES Performing Organization Address [facility]/ZIP Co de Phone Number [facility] 2 * (ABNORMAL) Microsopic Examination (08/16/2024 1:26 PM ACCOUNTS PAYABLE PROCESSOR) Leukocytes, Urine sediment 6-10(A) 0 - 5 /hpf [facility] 1 Erythrocytes, Urine sediment None seen 0 - 2 /hpf [facility] 1 Epithelial cells, Urine sediment >10(A) 0 - 10 /hpf [facility] 1 Casts, Urine sediment None seen None seen /lpf [facility] 1 Bacteria, Urine sediment None seen None seen/Few [facility] 1 08/16/2024 1:26 PM ACCOUNTS PAYABLE PROCESSOR 08/15/2024 11:00 PM ACCOUNTS PAYABLE PROCESSOR Narrative [facility] - 08/22/2024 4:07 PM ACCOUNTS PAYABLE PROCESSOR Performed at: [address] [id number] Pacs Specialist: Kvng Roca PhD, Phone: [phone] Lizzeth Mohan JAMMER HOOKER LAB BLOOD ORDERABLES Performing Organization Address [facility]/ZIP Co de Phone Number [facility] 1 * (ABNORMAL) Renal Function Panel (RFP) (08/16/2024 1:26 PM ACCOUNTS PAYABLE PROCESSOR) Glucose, Serum/Plasma 143(H) 70 - 99 mg/dL [...] 4.9 g/dL [facility] 1 08/16/2024 1:26 PM ACCOUNTS PAYABLE PROCESSOR 08/15/2024 11:00 PM ACCOUNTS PAYABLE PROCESSOR Narrative [facility] - 08/22/2024 4:07 PM ACCOUNTS PAYABLE PROCESSOR Performed at: [address] [id number] Pacs Specialist: Kvng Roca PhD, Phone: [phone] Lizzeth Mohan NP LAB BLOOD ORDERABLES Performing Organization Address [facility] de Phone Number [facility] * (ABNORMAL) Urine Culture, Routine (08/16/2024 1:26 PM ACCOUNTS PAYABLE PROCESSOR) Culture, Urine, Routine Final report(A) [facility] 1 08/16/2024 1:26 PM ACCOUNTS PAYABLE PROCESSOR 08/15/2024 11:00 PM ACCOUNTS PAYABLE PROCESSOR Comment:UR Narrative [facility] - 08/22/2024 4:07 PM ACCOUNTS PAYABLE PROCESSOR Performed at: [address] [place] [id number] Pacs Specialist: Kvng Roca PhD, Phone: [phone] Lizzeth Mohan NP LAB BLOOD ORDERABLES Performing Organization Address [facility] Co de Phone Number [facility] 1 * (ABNORMAL) Urinalysis, Routine W/ Reflex Microscopic (08/16/2024 1:26 PM ACCOUNTS PAYABLE PROCESSOR) Specific gravity of Urine 1.026 1.005 - [...] cated and was performed. 08/16/2024 1:26 PM ACCOUNTS PAYABLE PROCESSOR 08/15/2024 11:00 PM ACCOUNTS PAYABLE PROCESSOR Narrative [facility] - 08/22/2024 4:07 PM ACCOUNTS PAYABLE PROCESSOR Performed at: - [facility] [address] [id number] Pacs Specialist: Kvng Roca PhD, Phone: [phone] Lizzeth Mohan JAMMER HOOKER LAB URINE ORDERABLES [facility] 1 from Last 3 Months Care Teams Insurance Service Representative Relationship Specialty Start Date End Date Marcelino Gore MD [address] [place] [address] PCP - General 03/01/19
--- OUTSIDE RECORDS SUMMARY | 2024-10-21 11:55 | XMS_ITS | Encounter Summary ---
Author Organization [facility] Address [address] [place] [address] Phone Care Team Providers Care Measurement And Verification Engineer Name Role Phone Marcelino Gore MD Primary Care Provider [phone] Reason for Visit * Reason Comments Med Refill Encounter Details Date Type Department Care Team ([facility] Contact Info) Description 08/21/2024 Refill [facility] [address] [place] [phone] Lizzeth Mohan NP [address] [phone] Social History Tobacco Use Types Packs/Day Years [...] Upcoming Encounters Date Type Department Care Team ([facility] Contact Info) Description 11/10/2024 1:00 PM CDT Office Visit [facility] [address] [place] [address] 1 [place], [place] [phone] Lizzeth Mohan NP [address] [phone] documented as of this encounter Visit Diagnoses Not on filedocumented in this encounter Care Teams Measurement And Verification Engineer Relationship Specialty Start Date End Date Marcelino Gore MD [address] [place] [phone] PCP - General 03/01/19 documented as of this encounter
[2024-10-21 12:19] LABS: Basophils Absolute Auto 0.1 K/mm3 (0.0-0.1); Basophils Percent Auto 0.9 % (0.2-1.2); Eosinophils Absolute Auto 0.2 K/mm3 (0-0.3); Eosinophils Percent Auto 2.6 % (0-4.4); Hematocrit 42.3 % (37.0-47.0); Hemoglobin 12.9 g/dL (12.0-15.0); Immature Granulocyte Absolute 0.01 K/mm3 (0.00-0.031); Immature Granulocyte Percent A 0.2 % (0-0.5); Lymphocytes Absolute Auto 1.17 K/mm3 (0.9-3.2); Lymphocytes Percent Auto 20.1 % (18.3-44.2); Mean Corpuscular HGB Conc 30.5 g/dl (32-36); Mean Corpuscular Hemoglobin 29.5 pg (26-34); Mean Corpuscular Volume 96.8 fl (80-100); Mean Platelet Volume 12.4 fl (7.4-10.4); Monocytes Absolute Auto 0.6 K/mm3 (0.1-0.6); Monocytes Percent Auto 10.7 % (2.6-8.5); Neutrophils Absolute Auto 3.8 K/mm3 (1.3-6.7); Neutrophils Percent Auto 65.5 % (45.5-73.1); Platelet Count Result 217 k/mm3 (150-375); Red Blood Count 4.37 M/mm3 (4.2-5.4); Red Cell Distribution Width 13.7 % (11.5-14.5); White Blood Count 5.8 K/mm3 (4.5-10.0)
[2024-10-21 12:26] LABS: Alanine Aminotransferase 21 U/L (6-35); Alkaline Phosphatase 56 U/L (38-126); Anion Gap 10 mmol/L (4-12); Aspartate Amino Transferase 29 U/L (14-36); Blood Urea Nitrogen 25 mg/dL (7-17); Calcium 9.9 mg/dL (8.4-10.2); Carbon Dioxide 24 mmol/L (22-30); Chloride 108 mmol/L (98-107); Estimated Glomerular Filt Rate 50; Glucose 131 mg/dL (65-110); Potassium 4.1 mmol/L (3.4-5.0); Sodium 142 mmol/L (137-145)
[2024-10-21 14:02] LABS: Hemoglobin A1C 6.7 % (<5.7)
== END 2024-10-21 11:37 | disposition home or self-care (01) ==
LOC: HOME HLTH 11:37
PROVIDERS: PCP Physician Assistant; Visit Provider Physician Assistant
DX: E11.65 Type 2 diabetes mellitus with hyperglycemia (principal); G40.909 Epilepsy, unspecified, not intractable, without status epilepticus
CPT/HCPCS: 80053; 83036; 85025

== ENCOUNTER 2024-11-03 10:23 | Outpatient (NON) | payer MEDICARE, SELFPAY ==
--- OUTSIDE RECORDS SUMMARY | 2024-11-03 11:15 | XMS_ITS | Clinical Summary ---
Author Organization [facility] Address [address] [place] [address] Care Team Providers Care Staff Nurse Name Role Phone Allie Sinclair PA-C Primary Care Provider [phone] Allergies Active Allergy Reactions Criticality Noted Date Comments Aspartame Diarrhea 07/26/2022 Morphine Other (see comment) High 09/10/2023 Pt had bad experience: Acute drug intoxication - called EMS, almost had to complete temporary HD - went to [facility] Medications amlodipine 10 MG tablet Take 1 [...] Date Confusion 05/26/2024 Acute metabolic encephalopathy 03/15/2024 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 and Eliquis 5 mg b.i.d., which later placed on hold due to GI Tachycardia 07/11/2022 H/O: CVA (cerebrovascular accident) 07/08/2022 Altered mental status 07/07/2022 COVID-19 virus infection 08/27/2021 TIA (transient ischemic attack) 08/27/2021 Seizure disorder ([facility] HHS/HCC) 10/26/2020 Hyperlipidemia 03/14/2019 Overview (02/13/2023): Last [...] mellitus wit h other diabetic kidney complication ([facility]) 04/28/2016 Overview (02/13/2023): Last Assessment & Plan: A1c 6.6 a year ago. Continue Lantus 12 units bedtime, Tradjenta 5 mg, glipizide 5 mg. Will check A1c level next labs. Monitor Accu-Cheks Encounters Date Type Department Care Team Description 10/20/2024 Telephone [facility] - [address], [address] [place] [phone] Justine Can MD Question 10/14/2024 Orders Only [facility] - [address], [address] [place] [phone] Destiney Wheeler MA 10/14/2024 [facility] [address], [address] [place] [phone] Justine Can MD Medication 10/11/2024 10:20 AM CDT Office Visit [facility] [address] [facility], [address] [place] [address] Justine Can MD Follow Up (seizure) 10/11/2024 Travel 10/06/2024 Telephone [facility] - [address], [address] [place] [address] Justine Can MD Information 09/27/2024 11:15 AM CDT Telephone [facility], [address] [place] [address] Deandra Mcghee PA Holter Monitor 09/22/2024 Telephone [facility] - [address], [address] [place] [address] Justine Can MD Information 09/20/2024 10:00 AM DIRECTOR OF REGULATORY AFFAIRS Office Visit [facility], [address] [place] [address] Deandra Mcghee PA Follow Up; Atrial Fibrillation 09/20/2024 Telephone [facility] - [address], [address] [place] [address] Justine Can MD Appointment Request; Information 09/20/2024 Travel 08/29/2024 10:20 AM DIRECTOR OF REGULATORY AFFAIRS Office Visit [address], [address] [place] [address] Justine Can MD Follow Up 08/29/2024 Travel from Last 3 Months Immunizations Immunization Administration Dates Next Due COVID-19 Vaccine (Generic) [...] drink = 0.6 oz pur e alcohol) [employer] Answer Date Recorded In the past 12 months has [employer], gas, oil, or water [employer] threatened to shut off services in your [...] any time in the past 12 m [facility], were you homeless or living in a longterm (including now)? No 05/27/2024 Comments No Sex and Gender Information Value Date Recorded Sex Assigned at Female 09/20/2024 9:45 AM DIRECTOR OF REGULATORY AFFAIRS Legal Sex Female 6:56 PM CDT Gender Identity Not on file Sexual Orientation Not on file Last Filed Vital Signs Vital Sign Reading Time Taken Comments Blood Pressure 129/72 10/11/2024 10:28 AM CDT Pulse 65 10/11/2024 10:28 AM CDT Temperature 36.1 C (96.9 F) 08/29/2024 10:39 AM DIRECTOR OF REGULATORY AFFAIRS Respiratory Rate 16 08/29/2024 10:39 AM DIRECTOR OF REGULATORY AFFAIRS Oxygen Saturation 98% 10/11/2024 10:28 AM CDT Inhaled Oxygen Concentration - - Weight 79.4 kg (175 lb) 10/11/2024 10:28 AM CDT Height 170.2 cm (5' 7 ) 09/20/2024 9:56 AM DIRECTOR OF REGULATORY AFFAIRS Body Mass Index 27.41 09/20/2024 9:56 AM DIRECTOR OF REGULATORY AFFAIRS Plan of Treatment Upcoming Encounters Date Type Department Care Team (Late st Contact Info) Description 12/15/2024 11:20 AM CDT Office Visit [facility] - [facility] [address] [facility], [address] [place] [address] Justine Can MD [address] [place] [address] 03/02/2025 10:20 AM CDT Office Visit [facility] - [facility] [address] [facility], [address] [place] [phone] Justine Can MD [address] [facility] [place] [address] 04/04/2025 10:30 AM CDT Office Visit [facility], [address] [place], [place] [address] Jefry Tineo MD [facility]. [address] [place] [address] Health Maintenance Due Date Last Done Comments [...] 2019 Dexa Scan (General) 2019 Pneumococcal Vaccine: 50+ Years (2 of 2 - PCV) 05/17/2020 05/17/2019 Hemoglobin A1C 02/26/2023 11/26/2022, 11/17, 07/08/2022, Additional history exists COVID-19 Vaccine ( - 2023- season) 2024 09/27/2020, 09/06/2020 DTaP, Tdap and Td Vaccines (2 - Td or Tdap) 04/01/2032 04/01/2022 Hepatitis C Completed 07/24/2022 PHQ-2 (Physician [place]) Completed 10/11/2024 Meningococcal B Vaccine Aged Out No l onger eligible based on patient's age to complete this topic Meningococcal Vaccine Aged Out No aidee jayne eligible based on patient's age to complete this topic RSV Immunizations Under 20 Months Aged Out No longer eligible based on patient's age to complete this topic Medical Devices Implanted Type Area Acid Condenser Device Identifier Shelf Expiration Date Model / Serial / Lot Plate Synthes 2.4 Va-Lcp Vlr Dist Radius 6h Hd/3h Shaft Right - [id number] Implanted:Qty: 1 on 11/24/2017 by Godwin Aguirre MD at [facility] Plate Right: Arm SYNTHES 11/24/2017 [id number] / / NA Screw Synthes 2.4 Locking Stardrive 14mm - [id number] Implanted:Qty: 2 on 11/24/2017 by Godwin Aguirre MD at [facility] Screw Right: Arm SYNTHES 11/24/2017 02.210.114 / / NA Screw Synthes 2.4 Locking Stardrive 16mm - [id number] Implanted:Qty: 1 on 11/24/2017 by Godwin Aguirre MD at [facility] Screw Right: Arm SYNTHES 11/24/2017 02.210.116 / / NA Screw Synthes 2.4 Locking Stardrive 18mm - [id number] Implanted:Qty: 1 on 11/24/2017 by Godwin Aguirre MD at [facility] Screw Right: Arm SYNTHES 11/24/2017 02.210.118 / / NA Screw Synthes 2.4 Locking Stardrive 20mm - [id number] Implanted:Qty: 1 on 11/24/2017 by Godwin Aguirre MD at [facility] Screw Right: Arm SYNTHES 11/24/2017 02.210.120 / / NA Screw Synthes 2.4 Locking Stardrive 18mm - [id number] Implanted:Qty: 1 on 11/24/2017 by Godwin Aguirre MD at [facility] Screw Right: Arm SYNTHES 11/24/2017 02.210.118 / / NA Screw Synthes 2.7 Cortical Self Tap 14mm - [id number] Implanted:Qty: 1 on 11/24/2017 by Godwin Aguirre MD at [facility] Right: Arm SYNTHES 11/24/2017 202.874 / / NA Screw Synthes 2.7 Cortical Self Tap 12mm - [id number] Implanted:Qty: 2 on 11/24/2017 by Godwin Aguirre MD at [facility] Right: Arm SYNTHES 11/24/2017 202.872 / / NA Explanted Type Area Acid Condenser Device Identifier Shelf Expiration Date Model / Serial / Lot Wire Synthes 1.5mm Jenn 150mm W/Trocar Point - [id number] Implanted:Qty: 1 Explanted:Qty: 1 on 11/24/2017 by Godwin Aguirre MD at [facility] Right: Arm SYNTHES 11/24/2017 [id number] / / [...] Documents on File Type Date Recorded 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
--- OUTSIDE RECORDS SUMMARY | 2024-11-03 11:15 | XMS_ITS | Clinical Summary ---
Author Organization [facility] Address [address] [place] [address] Care Team Providers Care Refiner Operator Name Role Phone Allie Sinclair PA-C Primary Care Provider [phone] Source Comments [facility],non-owned Affiliates and Associated Physician Practices is amultiple site organization consisting of ambulatory clinics and hospital sitesin [place], [place], [place]. This disclosure is being madepursuant to the Care Everywhere program and may not contain all information available regarding this patient. Last updated 18.[facility] Allergies Active Allergy Reactions Criticality Noted Date Comments Artificial Sweeteners Diarrhea Medium 07/26/2022 Aspartame Diarrhea Medium 07/26/2022 Morphine Other High 09/10/2023 Pt had bad experience: Acute drug intoxication - called EMS, almost had to complete temporary HD - went to [facility] Medications * Be aware that medications may not be up to date on this document. Alwaysverify current medications with the patient. atorvastatin (Lipitor) 40 MG tablet Take 1 (one) tablet by mouth once daily 01/29/20 22 Active aspirin (Aspirin) 81 MG chew tabletIndicatio ns:Ischemic Stroke Take 1 (one) tablet by mouth once daily Reasons: Stroke Due To Limited Blood Flow 30 tablet 3 07/11/20 22 Active sertraline (Zoloft) 100 MG tablet Take 1 (one) tablet by mouth once daily 30 tablet 2 08/06/19 23 Active insulin glargine (Lantus/Semglee ) 100 units/mL pen Inject 12 (twelve) Units subcutaneously at bedtime 3 mL 1 08/05/19 23 Active Additional Information Patient taking differently: 20 UnitsSubcutaneous AT BEDTIME, Reported on 09/10/2023 midazolam (Nayzilam) 5 MG/0.1ML nasal spray Pewamo 0.1 mL into the nose as needed for Seizures Lasting longer than 5 minutes. Can administer second dose in other nostril if seizure continues after 10 minutes. 4 Each 5 09/04/19 Active Additional Information Patient not taking.Reported on 11/07/2022 Cholecalciferol 1.25 MG (04863 UT) cholecalciferol (vitamin D3) 1,250 mcg (50,000 unit) capsule TAKE 1 CAPSULE BY MOUTH EVERY WEEK WITH FOOD Active saline nasal spray ([place]; Baby [place]) 0.65 % nasal spray [place]amo 1 (one) spray to 2 (two) sprays into each nostril every 2 hours as needed for Dry Nose 12/05/19 Active polyethylene glycol 3350 (Miralax) 17 g packet Take 17 (seventeen) g by mouth once daily as needed for Constipation 12/05/19 23 Active Additional Information Patient not taking.Reported on 09/10/2023 Farxiga 10 MG tablet Take 1 (one) tablet by mouth every morning 07/07/20 23 Active Blood Glucose Monitoring Suppl (Game[employer] Verio Flex System) w/Device KIT USE TO CHECK BLOOD SUGAR THREE TIMES DAILY 05/04/20 23 Active amLODIPine (Norvasc) 10 MG tablet Take 1 (one) tablet by mouth every morning 07/21/19 24 Active fenofibrate (Lofibra) 160 MG tablet TAKE 1 TABLET BY MOUTH EVERY DAY WITH MEALS 08/17/19 24 Active [employer] Verio test strip USE TO CHECK BLOOD SUGAR TWICE DAILY 05/05/20 23 Active Lancets (VolleyUCH DELICA PLUS 33G EXTRA FINE LANCET) USE TO TEST BLOOD SUGAR TWICE DAILY 05/13/20 23 Active levETIRAcetam (Keppra) 500 MG tablet Take 1 (one) tablet by mouth 2 times daily 08/14/19 24 Active levETIRAcetam (Keppra) 1000 MG tablet Take 2 (two) tablets by mouth 2 times daily 04/10/20 23 Active Tradjenta 5 MG tablet Take 1 (one) tablet by mouth every morning 08/11/19 24 Active miconazole (Micatin) 2 % cream APPLY TOPICALLY TO THE AFFECTED AREA EVERY 12 HOURS 12/17/19 Active miconazole (Micatin) 2 % cream APPLY TOPICALLY TO THE AFFECTED AREA EVERY 12 HOURS Active Polyethylene Glycol 3350 MIX 17 GRAMS IN 6-8 OUNCES OF LIQUID AND DRINK DAILY Active metoprolol tartrate IR (Lopressor) 25 MG tablet Take 1 (one) tablet by mouth every 12 hours 01/31/20 Active oxyCODONE, immediate release, (Roxicodone) 5 MG tabletIndicatio ns:Flexion contractures Take 1 (one) tablet by mouth every 6 hours as needed for Pain 30 tablet 09/18/19 24 Active Active Problems Problem Noted Date Diagnosed [...] and cleaning.Pt will be dc today to [facility]. 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 Not hard at all 11/29/2022 [facility] [place] of Occupat ional Health - Occupational Stress [...] place to sleep or slept in a halfway (including now)? No 11/29/2022 Comments No Sex and Gender Information Value Date Recorded Sex Assigned at Not on file Legal Sex Female 6:40 AM CLAIMS ADMINISTRATOR Gender Identity Not on file Sexual Orientation Not on file Last Filed Vital Signs Vital Sign Reading Time Taken Comments Blood Pressure 123/68 09/17/2023 3:50 PM CLAIMS ADMINISTRATOR Pulse 68 09/17/2023 3:50 PM CLAIMS ADMINISTRATOR Temperature 36.5 C (97.7 F) 09/17/2023 3:27 PM CLAIMS ADMINISTRATOR Respiratory Rate 13 09/17/2023 3:50 PM CLAIMS ADMINISTRATOR Oxygen Saturation 98% 09/17/2023 3:50 PM CLAIMS ADMINISTRATOR Inhaled Oxygen Concentration 25% 07/23/2022 1 0:00 AM CLAIMS ADMINISTRATOR Weight 90.9 kg (200 lb 6.4 oz) 09/17/2023 12:34 PM CLAIMS ADMINISTRATOR Height 170.2 cm (5' 7 ) 09/17/2023 12:34 PM CLAIMS ADMINISTRATOR Body Mass Index 31.39 09/17/2023 12:34 PM CLAIMS ADMINISTRATOR Plan of Treatment Health Maintenance Due Date [...] 12/02/2022, Additional history exists COVID-19 VACCINE ( season) 2024 DEPRESSION SCREENING 07/20/2024 DIABETES - [...] this topic Medical Devices Implanted Type Area Survey Chief Device Identifier Shelf Expiration Date Model / Serial / Lot Parth Bone Void 5cc Dbm Allosync Ptty Implanted:Qty: 2 on 11/25/2022 by Robbie cMcann MD at [facility] Left: Humerus [employer] 04/23/2026 / / Screw 3.5mm 32mm T15 Slf-Tap Lck Tpr Implanted:Qty: 1 on 11/25/2022 by Robbie Mccann MD at [facility] Left: Humerus [employer] [id number] / / Screw 3.5mm 36mm T15 Slf-Tap Lck Tpr Implanted:Qty: 1 on 11/25/2022 by Robbie Mccann MD at [facility] Left: Humerus [employer] [id number] / / Screw 3.5mm 38mm T15 Slf-Tap Lck Tpr Implanted:Qty: 1 on 11/25/2022 by Robbie Mccann MD at [facility] Left: Humerus [employer] [id number] / / Screw 3.5mm 42mm T15 Lck Slf-Tap Tip Tpr Implanted:Qty: 1 on 11/25/2022 by Robbie Mccann MD at [facility] Left: Humerus [employer] [id number] / / Screw 3.5mm 46mm T15 Slf-Tap Lck Tpr Implanted:Qty: 1 on 11/25/2022 by Robbie Mccann MD at [facility] Left: Humerus [employer] [id number] / / Screw 3.5mm 48mm T15 Slf-Tap Lck Tpr Implanted:Qty: 1 on 11/25/2022 by Robbie Mccann MD at [facility] Left: Humerus [employer] [id number] / / Screw 3.5mm 46mm T15 Lck Mldir Nonster Implanted:Qty: 1 on 11/25/2022 by Robbie Mccann MD at [facility] Left: Humerus [employer] [id number] / / Graft Bone Infs Rhbmp-2 Bvn Clgn Lg 8ml Implanted:Qty: 1 on 11/25/2022 by Robbie Mccann MD at [facility] Left: Humerus Med[employer] Inc 07/20/2024 [id number] / / [id number] Graft Bone Almtr Dbm Canc 5ml Algrf Ptty - [id number] Implanted:Qty: 1 on 11/25/2022 by Robbie Mccann MD at [facility] Left: Humerus [employer] 09/22/2023 [id number] / [id number] / Alps Proximal Humerus Low Plate Left 11 H, 190mm Implanted:Qty: 1 on 11/25/2022 by Robbie Mccann MD at [facility] Left: Humerus [id number] / / Screw 3.5mm 20mm T15 Lopro Nonlock Implanted:Qty: 3 on 11/25/2022 by Robbie Mccann MD at [facility] Left: Humerus [employer] [id number] / / Screw 3.5mm 22mm T15 Nonlock Lopro Implanted:Qty: 1 on 11/25/2022 by Robbie Mccann MD at [facility] Left: Humerus [employer] [id number] / / Screw 3.5mm 24mm T15 Nonlock Lopro Implanted:Qty: 1 on 11/25/2022 by Robbie Mccann MD at [facility] Left: Humerus [employer] [id number] / / Screw 3.5mm 32mm T15 Nonlock Lopro Implanted:Qty: 1 on 11/25/2022 by Robbie Mccann MD at [facility] Left: Humerus [employer] [id number] / / Explanted Type Area Survey Chief Device Identifier Shelf Expiration Date Model / Serial / Lot Screw 3.5mm 36mm T15 Slf-Tap Lck Tpr Explanted:Qty: 1 on 11/25/2022 by Robbie Mccann MD at [facility] Left: Humerus [employer] [id number] / / Screw 3.5mm 48mm T15 Slf-Tap Lck Tpr Explanted:Qty: 2 on 11/25/2022 by Robbie Mccann MD at [facility] Left: Humerus [employer] [id number] / / Wire K 2mm 152mm Top Tray Ss Fx Explanted:Qty: 4 on 11/25/2022 by Robbie Mccann MD at [facility] Left: Humerus [employer] [id number] / / Screw 3.5mm 24mm T15 Nonlock Lopro Explanted:Qty: 1 on 11/25/2022 by Robbie Mccann MD at [facility] Left: Humerus [employer] [id number] / / Procedures Procedure Name Priority Date/Time Associated Diagnosis Comments RENAL FUNCTION PANEL AM Draw 12/04/2022 2:46 AM CDT HEMOGLOBIN A1C Routine 11/26/2022 1:18 AM CDT Other fracture of shaft of left humerus, subsequent encounter for fracture with malunion HEPATITIS SCREEN ACUTE AM Draw 07/24/2022 4:12 AM CLAIMS ADMINISTRATOR from Last 3 Months or Most Recently Relevant to Health Maintenance Results * (ABNORMAL) RENAL FUNCTION PANEL (12/04/2022 2:46 AM CDT) BUN 7 7 - 26 mg/dL 12/04/2022 4:03 AM [facility] Creatinine 0.98(H) 0.56 - 0.96 mg/dL 12/04/2022 4:03 AM [facility] Sodium 149(H) 136 - 145 mmol/L 12/04/2022 4:03 AM [facility] Potassium 4.4 3.5 - 4.5 mmol/L 12/04/2022 4:03 AM [facility] Chloride 112(H) 98 - 107 mmol/L 12/04/2022 4:03 AM [facility] CO2 18(L) 22 - 29 mmol/L 12/04/2022 4:03 AM [facility] Glucose 155(H) 70 - 115 mg/dL 12/04/2022 4:03 AM [facility] Albumin 2.6(L) 3.4 - 5.0 g/dL 12/04/2022 4:03 AM [facility] Calcium 9.0 8.4 - 10.2 mg/dL 12/04/2022 4:03 AM [facility] Phosphorus 3.7 2.9 - 5.1 mg/dL 12/04/2022 4:03 AM [facility] Anion Gap 23(H) 8 - 18 12/04/2022 4:03 AM [facility] BUN/Creatinine Ratio 7 7 - 23 12/04/2022 4:03 AM [facility] Osmolality Calculated 309(H) 270 - 300 mOsm/kg 12/04/2022 4:03 AM [facility] eGFR by CKD-EPI 63(L) >=90 mL/min/1.7 3 m2 12/04/2022 4:03 AM [facility] Blood BLOOD SPECIMEN / Unknown Lab Venipuncture / Unknown 12/04/2022 2:46 AM CDT 12/04/2022 3:24 AM CDT Blaine Campo MD LAB - CHEMISTRY ORDERABLES Final Result [facility] [address] [place] [address], [facility] [phone] * (ABNORMAL) HEMOGLOBIN A1C (11/26/2022 1:18 AM [...] to evaluate metabolic control in patients. Reference: [place] Diabetes Association, Standards of Care in Diabetes -2020 In patients 70 years and older consider HbA1c target range of 7.0-7.5% (Reference: Cody Garcia et al. JAMDA. 2012) The Sebia assay for the measurement of HbA1c is a National Glycohemoglobin Standardization Program (NGSP) certified method. Blood BLOOD SPECIMEN / Unknown Lab Venipuncture / Unknown 11/26/2022 1:18 AM CDT 11/26/2022 1:26 AM CDT us Robbie Mccann MD LAB - CHEMISTRY ORDERABLES Mary l Result Performing Organization Address City/[facility]/ZIP Co de Phone Number [facility] [address] [place] [address], [place] [phone] * HEPATITIS SCREEN ACUTE (07/24/2022 4:12 AM CLAIMS ADMINISTRATOR) Hepatitis A Virus Antibody IgM Non-react bartolome Non-reac tive 07/24/2022 5:11 AM CLAIMS ADMINISTRATOR [facility] Hepatitis B Virus Surface Antigen Non-react bartolome Non-reac tive 07/24/2022 5:11 AM CLAIMS ADMINISTRATOR [facility] Hepatitis B Core Virus Antibody IgM Non-react bartolome Non-reac tive 07/24/2022 5:11 AM CLAIMS ADMINISTRATOR [facility] Hepatitis C Antibody Non-react bartolome Non-reac tive 07/24/2022 5:11 AM [facility] Comment:Hepatitis C Antibody screen indicates no serologic evidence of past or current infection with Hepatitis C Virus. Patients with unexplained liver disease who are immunocompromised or suspected of having acute Hepatitis C infection may benefit from Nucleic Acid Test (CHA) for Hepatitis C Viral RNA to confirm Hepatitis C status. Blood BLOOD SPECIMEN / Unknown Venipuncture / Unknown 07/24/2022 4:12 AM CLAIMS ADMINISTRATOR 07/24/2022 4:37 AM [facility] Sarabjit Gutierrez MD LAB - CHEMISTRY ORDERAB LES Final Result Performing Organization Address [facility]/ZIP Co de Phone Number [facility] [address] [place] [phone], [facility] [phone] from Last 3 Months or Most Recently Relevant to Health Maintenance Insurance MEDICARE MEDICAID - [place] MEDICAID [facility] MEDICARE Advance Directives Documents on File Type Date Recorded 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
--- OUTSIDE RECORDS SUMMARY | 2024-11-03 11:15 | XMS_ITS | CONTINUITY OF CARE DOCUMENT ---
Author Name jaqueline parsons Address Unknown Organization [facility] Address [address] [place] [address] Phone [phone] Care Team Providers Care Roll Panner Name Role Phone Lc Abernathy MD Unavailable [phone] MADY MORAN Unavailable MAYD MORAN Unavailable [phone] PROBLEMS Condition Status Date Provider Notes Seizure disorder active Lc Abernathy MD Colitis, acute active Lc Abernathy MD Cardiology examination active Lc Abernathy MD Family History of CVA or Stroke: active Mimi Abernathy MD Family History of Hypertension: active [place] Abernathy MD HTN essential active Lc Abernathy MD Diabetes mellitus active Lc Abernathy MD Palpitations active Lc Abernathy MD Hyperlipidemia active Lc Abernathy MD Family History of CVA or Stroke: active Mimi Abernathy MD Family History of Hypertension: active [place] Abernathy MD ENCOUNTERS Date Type Provider Location Encounter Diag nosis 9 - 9 In-person encounter Office Visit Lc Abernathy MD [place] [facility] 4 - 5 In-person encounter Office Visit Lc [place] [facility] 3 - 3 In-person encounter Office Visit Lc Abernathy MD [place] [facility] 6 - 6 In-person encounter Office Visit Lc Abernathy MD [place] [facility] Cardiology examinationFamily History of Hypertension:Family History of CVA or Stroke:Family History of CVA or Stroke:Family History of Hypertension:HTN essentialDiabetes mellitusPalpitationsHyperlipidemia VITAL SIGNS Date Observation Value Provider Body Mass Index (Ratio) 38.37 kg/m2 [place] Abernathy MD blood pressure, diastolic 80 mm[Hg] Li nkLog blood pressure, systolic 130 mm[Hg] Estella kLog blood pressure, cuff size large Jonathon xiao [place] blood pressure, diastolic 80 mm[Hg] Jonathon ninoska [place] blood pressure, systolic 130 mm[Hg] Nadia brown [place] oxygen saturation, oximetry 97 % [facility] 15 /min [facility] pulse [facility] 74 /min [facility] weight E&M 245 [lb_av] [facility] height E&M 67 [in_i] [facility] [...] Take 1 tablet once a day 6 Nedya Crump lisinopril 20 mg tablet completed Take [...] social Lc Abernathy MD alcohol use yes cL Abernathy MD social history E&M S moking [...] Policy type / Coverage type Dinesh red green party ID [facility] [id number] [place] MEDICARE PART B Medicare [id number] ADVANCE DIRECTIVES Name Date DISCUSSED - NO DECISION MADE TREATMENT PLAN Date Name Performer [id number],S, H er updated medication list for this problem includes: Ezetimibe 10 Mg Tablet (Ezetimibe) ..... Take 1 tablet once a day Atorvastatin 40 Mg Tablet (Atorvastatin) ..... Take 1 tablet once a day Lc Abernatyh MD [id number],B, B P today: 130/80 P rior BP: 187/84 (09/30/2021) Her updated medication list for this problem includes: Lisinopril 20 Mg Tablet (Lisinopril) ..... Take 1 tablet by mouth once a day Metoprolol Tartrate 25 Mg Tablet (Metoprolol tartrate) ..... 1 tablet twice a day Lc Abernathy MD [id number],B, N o palps. Tele monitor showed sinus bradycardia with extra beats, no significant arrhythmias. Lc Abernathy MD [id number],S, P er PCP Her updated medication list for this problem includes: Lisinopril 20 Mg Tablet (Lisinopril) ..... Take 1 tablet by mouth once a day Glipizide 5 Mg Tablet (Glipizide) ..... Take 1 tablet once a day Januvia 100 Mg Tablet (Sitagliptin) ..... Take 1 tablet once a day Lc Abernathy MD [id number],C, N o palps. Currently on a heart monitor since being in the hospital . Lc Abernathy MD [id number],C, H ad an admission to [facility] for a grand mal seizure. Keppra was increased in the hospital. Feeling well today Lc Abernathy MD [id number],C, H er updated medication list for this problem includes: Ezetimibe 10 Mg Tablet (Ezetimibe) ..... Take 1 tablet once a day Atorvastatin 40 Mg Tablet (Atorvastatin) ..... Take 1 tablet once a day Lc Abernathy MD [id number],C,B P elevated, will increase Lisinopril to 20 [...] MD Cardiology: H ad an admission to [facility] for a grand mal seizure. Keppra [...] UTI. These issues have both resolved. Lc Abernahty MD Telehealth:Well cont rolled on current meds [...] a telesentry to see if I can bulk picker arrhythmias. Lc Abernathy MD Cardiology New Patie nt :Will restart metoprolol 25 mg twice daily. Will check an echo. B P today: 128/78 Lc Abernathy MD Date Name BASIC METABOLIC PANE L W/EGFR Holter Monitor 48 hr Complete Echo HISTORY OF PROCEDURES Procedure Date Procedure Name Provider Procedure Notes S tatus EKG Lc Abernathy MD completed
--- OUTSIDE RECORDS SUMMARY | 2024-11-03 11:16 | XMS_ITS | Encounter Summary ---
Author Organization [facility] Address [address] [place] [phone] Phone Care Team Providers Care Pullman Conductor Name Role Phone Marcelino Gore MD Primary Care Provider [phone] Reason for Visit * Reason Comments Med Refill Encounter Details Date Type Department Care Team ([facility] Contact Info) Description 08/21/2024 Refill [facility] [address] [address] [place], [place] [id number] Lizzeth Mohan NP [address] [phone] Social History Tobacco Use Types Packs/Day Years Used Date Smoking Tobacco: Never Smokeless Tobacco: Never Alcohol Use Standard Drinks/Week Comments Yes 0 (1 standard drink = 0.6 oz pure alcohol) Alcoholic Drinks/day: occasionally Comments Unknown Sex and Gender Information Value Date Recorded Sex Assigned at Not on file Legal Sex Female 7:35 AM MST Gender Identity Not on file Sexual Orientation Not on file documented as of this encounter Plan of Treatment Upcoming Encounters Date Type Department Care Team ([facility] Contact Info) Description 11/10/2024 1:00 PM CDT Office Visit [facility] [address] [facility] [address] [place], [place] [phone] Lizzeth Mohan NP [address] [phone] documented as of this encounter Visit Diagnoses Not on filedocumented in this encounter Care Teams Pullman Conductor Relationship Specialty Start Date End Date Marcelino Gore MD [address] [place] [address] PCP - General 03/01/19 documented as of this encounter
--- OUTSIDE RECORDS SUMMARY | 2024-11-03 11:16 | XMS_ITS | Clinical Summary ---
Author Organization [facility] ut[facility]ack[facility] Address [address] [place] [phone] Phone Care Team Providers Care Link Wire Fabric Machine Operator Name Role Phone Marcelino Gore MD Primary Care Provider [phone] Allergies No known active allergies Medications atorvastatin (LIPITOR) 40 MG tablet Onee tablet at bedtime 0 6 Active acetaminophen (TYLENOL) 325 MG tablet Take [...] Type Department Care Team Description 08/21/2024 Refill [facility] [address] [place] [id number] Lizzeht Mohan NP 08/18/2024 9:00 AM ASSEMBLER [employer]DS [employer] ANNOUNCEMENTS Office Visit [facility] [address] [place] [id number] Lizzeth Mohan NP Stage 3a chronic kidney disease (CMS-HCC) (Primary Dx); Hypertensive chronic kidney disease with stage 1 through stage 4 chronic kidney disease, or unspecified chronic kidney disease; Secondary hyperparathyroidism of renal origin (CMS-HCC); Type 2 diabetes mellitus with other diabetic kidney complication ([facility]-HCC); Urinary tract infectious disease; Candidiasis of skin 08/16/2024 Orders Only [facility] [address] [place] [id number] Lizzeth Mohan NP from Last 3 Months Immunizations Immunization Administration Dates Next Due Influenza TIV (IM) [...] on file Legal Sex Female 7:35 AM [facility] Gender Identity Not on file Sexual Orientation Not on file Last Filed Vital Signs Vital Sign Reading Time Taken Comments Blood Pressure 122/66 08/18/2024 8:53 AM ASSEMBLER CARDS AND ANNOUNCEMENTS Pulse 62 08/18/2024 8:53 AM ASSEMBLER [employer]DS AND ANNOUNCEMENTS Temperature - - Respiratory Rate - - Oxygen Saturation 98% 03/12/2023 1:47 PM CDT Inhaled Oxygen Concentration - - Weight 82.1 kg (181 lb) 08/18/2024 8:53 AM ASSEMBLER CARDS AND ANNOUNCEMENTS Height 170.2 cm (5' 7 ) 08/18/2024 8:53 AM ASSEMBLER CARDS AND ANNOUNCEMENTS Body Mass Index 28.35 08/18/2024 8:53 AM ASSEMBLER CARDS AND ANNOUNCEMENTS Plan of Treatment Upcoming Encounters Date Type Department Care Team ([facility] st Contact Info) Description 11/10/2024 1:00 PM CDT Office Visit [facility] [address] [facility] [place] [address] Lizzeth Mohan, FARMER AND GRAZIER [address] [address] Health Maintenance Due Date Last Done Comments Diabetic Foot Exam 01/14/1964 Ophthalmology Exam 01/14/1964 Pneumococcal PPSV23/PCV13 65 + Years / High and Highest Risk (1 of 5 - PCV) 1973 Influenza Vaccine (Season Ended) 2025 05/04/2023, 05/10/2021, 05/17/2019, Additional history exists Procedures Procedure Name Priority Date/Time Associated Diagnosis Comments SPECIMEN STATUS REPORT Routine 08/16/2024 1:26 PM ASSEMBLER CARDS AND ANNOUNCEMENTS PTH, INTACT Routine 08/16/2024 1:26 PM ASSEMBLER [employer]DS [employer] ANNOUNCEMENTS TEXT / FREE TEXT - RESULT Routine 08/16/2024 1:26 PM ASSEMBLER [employer]DS AND ANNOUNCEMENTS URINE CULTURE, ROUTINE Routine 08/16/2024 1:26 PM ASSEMBLER CARDS AND ANNOUNCEMENTS LITHOLINK CKD PROGRAM Routine 08/16/2024 1:26 PM ASSEMBLER CARDS AND ANNOUNCEMENTS RENAL FUNCTION PANEL (RFP) Routine 08/16/2024 1:26 PM ASSEMBLER CARDS AND ANNOUNCEMENTS MICROSCOPIC EXAMINATION Routine 08/16/2024 1:26 PM ASSEMBLER CARDS AND ANNOUNCEMENTS URINALYSIS ROUTINE W/ REFLEX MICROSCOPIC Routine 08/16/2024 1:26 PM ASSEMBLER CARDS AND ANNOUNCEMENTS CBC/DIFF AMBIGUOUS DEFAULT Routine 08/16/2024 1:26 PM ASSEMBLER CARDS AND ANNOUNCEMENTS from Last 3 Months Results * PTH, Intact (08/16/2024 1:26 PM ASSEMBLER CARDS AND ANNOUNCEMENTS) PTH, Intact, Serum/Plasma 24 15 - 65 pg/mL [facility] 1 08/16/2024 1:26 PM ASSEMBLER CARDS AND ANNOUNCEMENTS 08/15/2024 11:00 PM ASSEMBLER CARDS AND ANNOUNCEMENTS Narrative [facility] - 08/22/2024 4:07 PM ASSEMBLER CARDS AND ANNOUNCEMENTS Performed at: [address] [place] [id number] Automotive Airconditioning Mechanic: Kvng Roca PhD, Phone: [phone] us Lizzeth Mohan F[employer] GRAZIER LAB BLOOD ORDERABLES Final Resu lt [facility] 1 * Specimen Status Report (08/16/2024 1:26 PM ASSEMBLER CARDS AND ANNOUNCEMENTS) Pathologist [facility] Specimen Status Report Comment [facility] 1 Comment: Ambig Abbrev RP10 Default Ambig Abbrev RP10 Default A hand-written panel/profile was received from your office. In accordance with the [facility] Ambiguous Test Code Policy dated January 2003, we have completed your order by using the closest currently or formerly recognized AMA panel. We have assigned Renal Panel (10), Test Code #389806 to this request. If this is not the testing you wished to receive on this specimen, please contact the [facility] Client Inquiry/Technical Services Department to clarify the test order. We appreciate your business. 08/16/2024 1:26 PM ASSEMBLER CARDS AND ANNOUNCEMENTS 08/15/2024 11:00 PM ASSEMBLER CARDS AND ANNOUNCEMENTS Narrative [facility] - 08/22/2024 4:07 PM ASSEMBLER CARDS AND ANNOUNCEMENTS Performed at: [facility] [id number] Automotive Airconditioning Mechanic: Kvng Roca PhD, Phone: [phone] us Lizzeth Mohan NP LAB BLOOD ORDERABLES Final Resu lt [facility] 1 * (ABNORMAL) Text / Free Text - Result (08/16/2024 1:26 PM ASSEMBLER CARDS AND ANNOUNCEMENTS) [facility] Reference lab test results Enterococcus faecalis(A) [facility] 1 Comment: For Enterococcus species, aminoglycosides (except for high-level resistance screening), cephalosporins, clindamycin, and trimethoprim-sulfamethoxazole are not effective clinically. (CLSI, X173-R89, 2016) 25,000-50,000 colony forming units per mL Enterococci susceptible to penicillin are predictably susceptible to ampicillin, amoxicillin, ampicillin-sulbactam, amoxicillin-clavulanate, and piperacillin-tazobactam for vhd-hscn-wevlcqtyu producing enterococci. (CLSI 2018) Note: this isolate [...] Trimethoprim/Sulfa S Vancomycin S 08/16/2024 1:26 PM ASSEMBLER CARDS AND ANNOUNCEMENTS 08/15/2024 11:00 PM ASSEMBLER CARDS AND ANNOUNCEMENTS Narrative [facility] - 08/22/2024 4:07 PM ASSEMBLER CARDS AND ANNOUNCEMENTS Performed at: - [facility] [id number] Automotive Airconditioning Mechanic: Kvng Roca PhD, Phone: [phone] us Lizzeth Mohan NP LAB BLOOD ORDERABLES Final Resu lt [facility] 1 * CBC/Diff Ambiguous Default (08/16/2024 1:26 PM ASSEMBLER CARDS AND ANNOUNCEMENTS) Leukocytes, Blood 6.5 3.4 - 10.8 x10E3/uL [...] have assigned CBC with Differential/Platelet, Test Code #[id number] to this request. If this is not the testing you wished to receive on this specimen, please [facility] to clarify the test order. We appreciate your business. 08/16/2024 1:26 PM ASSEMBLER CARDS AND ANNOUNCEMENTS 08/15/2024 11:00 PM ASSEMBLER CARDS AND ANNOUNCEMENTS Narrative [facility] - 08/22/2024 4:07 PM ASSEMBLER CARDS AND ANNOUNCEMENTS Performed at: [address] [place] [id number] Automotive Airconditioning Mechanic: Kvng Roca PhD, Phone: [phone] Specimen Comment: A courtesy copy of this report has been sent to [phone] us Lizzeth Mohan NP LAB BLOOD ORDERABLES Final Resu lt [facility] * [facility] CKD Program (08/16/2024 1:26 PM ASSEMBLER CARDS AND ANNOUNCEMENTS) Interpretation Note [facility] 2 Comment: Senior Android Developer's Note: CBC Note: A hand-written panel/profile was received from your office. In accordance with the [facility] Ambiguous Test Code Policy dated January 2003, we have assigned CBC with Differential/Platelet, Test Code #[id number] to this request. If this is not the testing you wished to receive on this specimen, please [facility] to clarify the test order. We appreciate your business. Senior Android Developer's Note: Edvin Carrero RP10 Default: A hand-written panel/profile was received from your office. In accordance with the [facility] Ambiguous Test Code Policy dated January 2003, we have completed your order by using the closest currently or formerly recognized AMA panel. We have assigned Renal Panel (10), Test Code #[id number] to this request. If this is not the testing you wished to receive on this specimen, please [facility] to clarify the test order. We appreciate your business. Supplemental report is available. PDF Image . [facility] 2 08/16/2024 1:26 PM ASSEMBLER CARDS AND ANNOUNCEMENTS 08/15/2024 11:00 PM ASSEMBLER CARDS AND ANNOUNCEMENTS Narrative [facility] - 08/22/2024 4:07 PM ASSEMBLER CARDS AND ANNOUNCEMENTS Performed at: [facility] Clinical / Digital [address] [place] [id number] Automotive Airconditioning Mechanic: Shayy Zimmerman MD, Phone: [phone] Lizzeth Mohan NP LAB BLOOD ORDERABLES Final Resu lt Performing Organization Address [facility] Co de Phone Number [facility] 2 * (ABNORMAL) Microsopic Examination (08/16/2024 1:26 PM ASSEMBLER CARDS AND ANNOUNCEMENTS) Leukocytes, Urine sediment 6-10(A) 0 - 5 /hpf [facility] 1 Erythrocytes, Urine sediment None seen 0 - 2 /hpf [facility] 1 Epithelial cells, Urine sediment >10(A) 0 - 10 /hpf [facility] 1 Casts, Urine sediment None seen None seen /lpf [facility] 1 Bacteria, Urine sediment None seen None seen/Few [facility] 1 08/16/2024 1:26 PM ASSEMBLER CARDS AND ANNOUNCEMENTS 08/15/2024 11:00 PM ASSEMBLER CARDS AND ANNOUNCEMENTS Narrative [facility] - 08/22/2024 4:07 PM ASSEMBLER CARDS AND ANNOUNCEMENTS Performed at: [address] [id number] Automotive Airconditioning Mechanic: Kvng Roca PhD, Phone: [phone] Lizzeth Mohan NP LAB BLOOD ORDERABLES Final Resu lt Performing Organization Address [facility] Co de Phone Number [facility] 1 * (ABNORMAL) Renal Function Panel (RFP) (08/16/2024 1:26 PM ASSEMBLER CARDS AND ANNOUNCEMENTS) Glucose, Serum/Plasma 143(H) 70 - 99 mg/dL [...] 4.9 g/dL [facility] 1 08/16/2024 1:26 PM ASSEMBLER CARDS AND ANNOUNCEMENTS 08/15/2024 11:00 PM ASSEMBLER CARDS AND ANNOUNCEMENTS Narrative [facility] - 08/22/2024 4:07 PM ASSEMBLER CARDS AND ANNOUNCEMENTS Performed at: [address] [place] [id number] Automotive Airconditioning Mechanic: Kvng Roca PhD, Phone: [phone] us Lizzeth Mohan F[employer]ER [employer] GRAZIER LAB BLOOD ORDERABLES Final Resu lt [facility] * (ABNORMAL) Urine Culture, Routine (08/16/2024 1:26 PM ASSEMBLER CARDS AND ANNOUNCEMENTS) Culture, Urine, Routine Final report(A) [facility] 1 08/16/2024 1:26 PM ASSEMBLER [employer]DS AND ANNOUNCEMENTS 08/15/2024 11:00 PM ASSEMBLER CARDS AND ANNOUNCEMENTS Comment:UR Vera [facility] - 08/22/2024 4:07 PM ASSEMBLER CARDS AND ANNOUNCEMENTS Performed at: [address] [place] [id number] Automotive Airconditioning Mechanic: Kvng Roca PhD, Phone: [phone] us Lizzeth Mohan F[employer]ER [employer] GRAZIER LAB BLOOD ORDERABLES Final Resu lt Performing Organization Address [facility]/State/ZIP Co de Phone Number [facility] * (ABNORMAL) Urinalysis, Routine W/ Reflex Microscopic (08/16/2024 1:26 PM ASSEMBLER CARDS AND ANNOUNCEMENTS) Specific gravity of Urine 1.026 1.005 - [...] cated and was performed. 08/16/2024 1:26 PM ASSEMBLER CARDS AND ANNOUNCEMENTS 08/15/2024 11:00 PM ASSEMBLER CARDS AND ANNOUNCEMENTS Narrative [facility] - 08/22/2024 4:07 PM ASSEMBLER CARDS AND ANNOUNCEMENTS Performed at: 01 - [address] [id number] Automotive Airconditioning Mechanic: Kvng Roca PhD, Phone: [phone] us Lizzeth Mohan FARMER [employer] GRAZIER LAB URINE ORDERABLES Final Resu lt [facility] 1 from Last 3 Months Insurance MEDICARE [facility] MEDICARE Care Teams Link Wire Fabric Machine Operator Relationship Specialty Start Date End Date Marcelino Gore MD [address] [place] [phone] PCP - General 03/01/19
--- OUTSIDE RECORDS SUMMARY | 2024-11-03 11:16 | XMS_ITS | Referral Summary ---
Author Organization [facility] [place] [facility] [place] Address [address] [place] [id number] Care Team Providers Care Clin Tech Name Role Phone Marcelino Gore Primary Care Provider + Allergies Active Allergy Reactions Criticality Noted Date Comments Aspartame Diarrhea Medium 07/26/2022 Morphine Other (See comments) High 09/10/2023 Pt had bad experience: Acute drug intoxication - called EMS, almost had to complete temporary HD - went to [facility] Medications acetaminophen (TYLENOL EXTRA STRENGTH) 500 [...] 1 tablet (5 mg total) by mouth kosher dietary service manager before breakfast 4 Active fenofibrate (TRIGLIDE) 160 mg tabletIndication s:hyperlipidemia Take 1 tablet (160 mg total) by mouth kosher dietary service manager before breakfast Active dapagliflozin propanediol (FARXIGA) 10 mg tabletIndication s:type 2 diabetes mellitus Take 1 tablet (10 mg total) by mouth kosher dietary service manager before breakfast 3 Active aspirin 81 mg chewable tabletIndication s:prevention of thrombosis Take 1 tablet (81 mg total) by mouth kosher dietary service manager before breakfast 2 Active amLODIPine (NORVASC) 10 mg tabletIndication s:hypertension Take 1 tablet (10 mg total) by mouth kosher dietary service manager before breakfast 8 Active miconazole 2 % [...] Active Problems Problem Noted Date Diagnosed Date [place]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 Will start on amoxicillin 500 mg b.i.d. x5 days, doxycycline 100 mg b.i.d. x5 days, started on 08/09/22. Continue pain management with Tylenol 650 Q 6. Continue wound care. Assessment & Plan (08/09/2022 6:49 PM BUTT SAWYER): Has erythema, warmth with more drainage. Will start on amoxicillin 500 mg b.i.d. x5 days, doxycycline 100 mg b.i.d. x5 days. Continue pain management with Tylenol 650 Q 6. Continue wound care. Moderate vascular dementia w ithout behavioral disturbance, psychotic disturbance, mood disturbance, or anxiety 08/09/2022 Assessment & Plan (08/13/2022 6:45 AM BUTT SAWYER): Patient is pleasantly confused. No behaviors. Slums 16/30. Continue Zoloft 100 mg daily. Continue supportive care. Patient need supervision and care after discharge Assessment & Plan (08/09/2022 6:58 PM BUTT SAWYER): Patient is pleasantly confused. No behaviors. Slums 16/30. Continue Zoloft 100 mg daily. Continue supportive care. Patient need supervision and care after discharge Closed fracture of shaft of left humerus with routine healing 08/07/2022 Assessment & Plan (08/13/2022 6:42 AM BUTT SAWYER): Due to fall. Imaging revealed left humeral shaft fracture, complicated with radial nerve palsy. Orthopedic managed conservatively with brace. SHAMIKA PRADHAN. Pain management with Tylenol 650 Q 6. Patient had follow-up with Dr. [facility] today. Recommended to continue Left arm brace, according to special instructions for placement and cleaning.Pt will be dc today to [facility]. Assessment & Plan (08/09/2022 6:51 PM BUTT SAWYER): Pain overall controlled. Reminded patient that has follow-up with Dr. Thomas 08/11/2022. Daughter to provide transportation. Assessment & Plan (08/07/2022 6:17 AM BUTT SAWYER): Due to fall. Imaging revealed left humeral shaft fracture, complicated with radial nerve palsy. Orthopedic managed conservatively with brace. SHAMIKA PRADHAN. Pain management with Tylenol 650 Q 6. Patient follow-up with Dr. Thomas on 08/11/22 for repeat imaging and treatment plan Paroxysmal A-fib 08/07/2022 Assessment & Plan (08/13/2022 6:43 AM BUTT SAWYER): Patient developed paroxysmal AFib while inpatient, was started on metoprolol 25 mg b.i.d. and Eliquis 5 mg b.i.d., which later placed on hold due to GI Assessment & Plan (08/07/2022 6:18 AM BUTT SAWYER): Patient developed paroxysmal AFib while inpatient, was started on metoprolol 25 mg b.i.d. and Eliquis 5 mg b.i.d., which later placed on hold due to GI Gastrointestinal hemorrhage with melena 08/07/19 Assessment & Plan (08/13/2022 6:46 AM BUTT SAWYER): Patient was started on Eliquis for AFib, followed by acute blood loss anemia. Home med Plavix, Eliquis placed on hold. EGD done showed multiple gastric and duodenal ulcers. Status post blood transfusions. H pylori negative. Denies any melena or GI bleed now. Continue pantoprazole 40 mg b.i.d.. Avoid NSAIDs, AC till follow-up with GI. Assessment & Plan (08/07/2022 6:32 AM BUTT SAWYER): Patient was started on Eliquis for AFib, [...] 08/07/2022 Assessment & Plan (08/13/2022 6:43 AM BUTT SAWYER): 2/2 GIB (gastric, duodenal ulcers). Received blood transfusions. Hold NSAIDs, anticoagulants. CBC check a.m. Assessment & Plan (08/07/2022 6:20 AM BUTT SAWYER): 2/2 GIB (gastric, duodenal ulcers). Received blood transfusions. Hold NSAIDs, anticoagulants. CBC check a.m. Acute kidney injury superimposed on chronic kidn ey disease 08/07/2022 Assessment & Plan (08/13/2022 6:45 AM BUTT SAWYER): Baseline creatinine around 1. Was elevated while inpatient. Will hold chlorthalidone now, till BMP results. If creatinine elevated may consider holding lisinopril as well. Avoid nephrotoxic drugs. Monitor renal function Assessment & Plan (08/07/2022 6:30 AM BUTT SAWYER): Baseline creatinine around 1. Was elevated while [...] 08/27/2021 Assessment & Plan (08/13/2022 6:45 AM BUTT SAWYER): Patient currently asymptomatic. No seizure episode. Continue home med Keppra 750 mg b.i.d.. Will check Keppra level next labs. Assessment & Plan (08/07/2022 6:31 AM BUTT SAWYER): Patient currently asymptomatic. No seizure episode. Continue home med Keppra 750 mg b.i.d.. Will check Keppra level next labs. Depressive disorder 08/27/2021 Assessment & Plan (08/13/2022 6:45 AM BUTT SAWYER): Mood currently stable. Continue home med sertraline 100 mg daily. Assessment & Plan (08/07/2022 6:31 AM BUTT SAWYER): Mood currently stable. Continue home med sertraline [...] 03/14/2019 Assessment & Plan (08/13/2022 6:44 AM BUTT SAWYER): Continue Lipitor 40 mg daily, Zetia Assessment & Plan (08/07/2022 6:32 AM BUTT SAWYER): Continue Lipitor 40 mg daily, Zetia Encounter for screening for cardiovascular disor ders 03/14/2019 Hypomagnesemia 03/14/2019 Palpitations 03/14/2019 Essential hypertension 03/08/2019 Assessment & Plan (08/13/2022 6:44 AM BUTT SAWYER): Blood pressure and heart rate fluctuates. Continue amlodipine 10 mg, lisinopril 40 mg, metoprolol 25 mg b.i.d. added due to AFib while inpatient. Will hold down 25 mg for now due to elevated creatinine last labs. Monitor blood pressure, adjust meds accordingly. Assessment & Plan (08/07/2022 6:22 AM BUTT SAWYER): Blood pressure and heart rate fluctuates. Continue [...] 04/28/2016 Assessment & Plan (08/13/2022 6:44 AM BUTT SAWYER): A1c 6.6 a year ago. Continue Lantus 12 units bedtime, Tradjenta 5 mg, glipizide 5 mg. Will check A1c level next labs. Monitor Accu-Cheks Assessment & Plan (08/07/2022 6:26 AM BUTT SAWYER): A1c 6.6 a year ago. Continue Lantus [...] on file Legal Sex Female 3:49 AM BUTT SAWYER Gender Identity Not on file Sexual Orientation [...] testing HEMOGLOBIN A1C Routine 08/28/2021 4:53 AM BUTT SAWYER OCCULT BLOOD, FECAL (FIT) Routine 03/18/2018 8:45 [...] BLOOD ORDERABLES Final Re sult [facility] VIERA [address] [facility] Department [place] [address] * (ABNORMAL) Hemoglobin A1c (08/28/2021 4:53 AM BUTT SAWYER) [facility] Hgb A1C 6.6(H) 4.0 - 5.6 % BLAYNE Comment:Testing performed by : [address] [address] Estimated Average Glucose 143 mg/dL [facility] Comment: The ADA recommends reporting an estimated Average Glucose (eAG) with all Hemoglobin A1c results using the equation derived from a study of 507 normal and diabetic adults. Minority populations were underrepresented and children were not included. (Diabetes Care 31:6573-7717, 2008). The eAG is not equivalent to a fasting glucose. Testing performed by: [facility], [address] [place] [address]., [id number] Blood 08/28/2021 4:53 AM BUTT SAWYER 08/28/2021 5:00 AM BUTT SAWYER Janet Guan DO LAB BLOOD ORDERABLES Final Re sult [facility] [address] [facility] Department [place] [address] * Occult blood, fecal non neoplasm screening (03/18/2018 8:45 PM CDT) [facility] Stool Occult Blood POSITIVE NEGATIVE 03/18/2018 10:21 PM CDT [facility] HISTORICAL RESULTS 03/18/2018 8:45 PM CDT 03/18/2018 10:08 PM CDT Kassandra Saab NP LAB BODY FLUIDS AND STOOLS ORDER JIM Final Result [facility] HISTORICAL RESULTS * (ABNORMAL) TNI with LIPID PANEL (11/29/2016 3:21 PM CDT) [facility] Troponin I < 0.300 0.000 - 0.300 ng/mL 11/29/2016 3:54 PM CDT [facility] HISTORICAL RESULTS Comment: Reference using GEE Chemiluminescence Negative: Repeat in 4-6 hours as indicated. Triglycerides 124 0 - 199 mg/dL 11/29/2016 3:54 PM CDT [facility] HISTORICAL RESULTS Comment:12 hr pc highly davis mmended for Triglyceride Cholesterol 212(H) 0 - 199 mg/dL 11/29/2016 3:54 PM CDT [facility] HISTORICAL RESULTS Comment: Borderline: 200-239 High Risk: >239 HDL Cholesterol 82(H) 40 - 60 mg/dL 11/29/2016 3:54 PM CDT [facility] HISTORICAL RESULTS Comment: Major Risk < 40 mg/dL Moderate Risk 40-60 mg/dL Negative Risk > 60 mg/dL LDL Cholesterol, Calc 105 0 - 130 mg/dL 11/29/2016 3:54 PM CDT [facility] RESULTS Comment:High Risk > 159 mg/d L Cholesterol/HDL Ratio 2.6 11/29/2016 3:54 PM T [facility] HISTORICAL RESULTS Comment: Cholesterol / HDL Ratio 3.5:1 or less is desirable. Cholesterol / HDL Ratio greater than 5:1 is considered higher risk for developing heart disease. 11/29/2016 3:21 PM CDT 11/29/2016 3:28 PM CDT Narrative [facility] HISTORICAL RESULTS - 11/29/2016 3:54 PM CDT us Lester Marcelino Mccann MD LAB BLOOD ORDERABLES Final Result [facility] HISTORICAL RESULTS from Last 3 Months or Most Recently Relevant to Health Maintenance Insurance [facility] MEDICARE MEDICARE IDNC IDNC MEDICARE Advance Directives For more information, please contact: [phone] * Full Code (Latest Code Status on File) Date Activated Date Inactivated Comments 11/05/2022 11:01 AM 11/05/2022 5:09 PM Healthcare Agents on File Name Relationship Healthcare Agent Relationsmn p Communication Prakash Olson Friend Second Alternate Health Care Agent Care Teams Clin Tech Relationship Specialty Start Date End Date Marcelino Gore PA [address] [place] [id number] PCP - General 09/08/19
--- OUTSIDE RECORDS SUMMARY | 2024-11-03 11:16 | XMS_ITS | Clinical Summary ---
Author Organization [facility] [facility] Address [address] [place] [id number] Care Team Providers Care Improvement Auditor Name Role Phone Marcelino Gore Primary Care Provider + Allergies Active Allergy Reactions Criticality Noted Date Comments Aspartame Diarrhea Medium 07/26/2022 Morphine Other (See comments) High 09/10/2023 Pt had bad experience: Acute drug intoxication - called EMS, almost had to complete temporary HD - went to [facility] Medications acetaminophen (TYLENOL EXTRA STRENGTH) 500 mg [...] 1 tablet (5 mg total) by mouth armature winder repair before breakfast 4 Active fenofibrate (TRIGLIDE) 160 mg tabletIndication s:hyperlipidemia Take 1 tablet (160 mg total) by mouth armature winder repair before breakfast Active dapagliflozin propanediol (FARXIGA) 10 mg tabletIndication s:type 2 diabetes mellitus Take 1 tablet (10 mg total) by mouth armature winder repair before breakfast 3 Active aspirin 81 mg chewable tabletIndication s:prevention of thrombosis Take 1 tablet (81 mg total) by mouth armature winder repair before breakfast 2 Active amLODIPine (NORVASC) 10 mg tabletIndication s:hypertension Take 1 tablet (10 mg total) by mouth armature winder repair before breakfast 8 Active miconazole 2 % [...] Active Problems Problem Noted Date Diagnosed Date 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 Will start on amoxicillin 500 mg b.i.d. x5 days, doxycycline 100 mg b.i.d. x5 days, started on 08/09/22. Continue pain management with Tylenol 650 Q 6. Continue wound care. Assessment & Plan (08/09/2022 6:49 PM AUTO SUSPENSION AND STEERING MECHANIC): Has erythema, warmth with more drainage. Will start on amoxicillin 500 mg b.i.d. x5 days, doxycycline 100 mg b.i.d. x5 days. Continue pain management with Tylenol 650 Q 6. Continue wound care. Moderate vascular dementia w ithout behavioral disturbance, psychotic disturbance, mood disturbance, or anxiety 08/09/2022 Assessment & Plan (08/13/2022 6:45 AM AUTO SUSPENSION AND STEERING MECHANIC): Patient is pleasantly confused. No behaviors. Slums 16/30. Continue Zoloft 100 mg daily. Continue supportive care. Patient need supervision and care after discharge Assessment & Plan (08/09/2022 6:58 PM AUTO SUSPENSION AND STEERING MECHANIC): Patient is pleasantly confused. No behaviors. Slums 16/30. Continue Zoloft 100 mg daily. Continue supportive care. Patient need supervision and care after discharge Closed fracture of shaft of left humerus with routine healing 08/07/2022 Assessment & Plan (08/13/2022 6:42 AM AUTO SUSPENSION AND STEERING MECHANIC): Due to fall. Imaging revealed left humeral shaft fracture, complicated with radial nerve palsy. Orthopedic managed conservatively with brace. SHAMIKA PRADHAN. Pain management with Tylenol 650 Q 6. Patient had follow-up with Dr. Thomas today. Recommended to continue Left arm brace, according to special instructions for placement and cleaning.Pt will be dc today to [facility]. Assessment & Plan (08/09/2022 6:51 PM AUTO SUSPENSION AND STEERING MECHANIC): Pain overall controlled. Reminded patient that has follow-up with Dr. Thomas 08/11/2022. Daughter to provide transportation. Assessment & Plan (08/07/2022 6:17 AM AUTO SUSPENSION AND STEERING MECHANIC): Due to fall. Imaging revealed left humeral shaft fracture, complicated with radial nerve palsy. Orthopedic managed conservatively with brace. SHAMIKA PRADHAN. Pain management with Tylenol 650 Q 6. Patient follow-up with Dr. Thomas on 08/11/22 for repeat imaging and treatment plan Paroxysmal A-fib 08/07/2022 Assessment & Plan (08/13/2022 6:43 AM AUTO SUSPENSION AND STEERING MECHANIC): Patient developed paroxysmal AFib while inpatient, was started on metoprolol 25 mg b.i.d. and Eliquis 5 mg b.i.d., which later placed on hold due to GI Assessment & Plan (08/07/2022 6:18 AM AUTO SUSPENSION AND STEERING MECHANIC): Patient developed paroxysmal AFib while inpatient, was started on metoprolol 25 mg b.i.d. and Eliquis 5 mg b.i.d., which later placed on hold due to GI Gastrointestinal hemorrhage with melena 08/07/19 Assessment & Plan (08/13/2022 6:46 AM AUTO SUSPENSION AND STEERING MECHANIC): Patient was started on Eliquis for AFib, followed by acute blood loss anemia. Home med Plavix, Eliquis placed on hold. EGD done showed multiple gastric and duodenal ulcers. Status post blood transfusions. H pylori negative. Denies any melena or GI bleed now. Continue pantoprazole 40 mg b.i.d.. Avoid NSAIDs, AC till follow-up with GI. Assessment & Plan (08/07/2022 6:32 AM AUTO SUSPENSION AND STEERING MECHANIC): Patient was started on Eliquis for AFib, [...] 08/07/2022 Assessment & Plan (08/13/2022 6:43 AM AUTO SUSPENSION AND STEERING MECHANIC): 2/2 GIB (gastric, duodenal ulcers). Received blood transfusions. Hold NSAIDs, anticoagulants. CBC check a.m. Assessment & Plan (08/07/2022 6:20 AM AUTO SUSPENSION AND STEERING MECHANIC): 2/2 GIB (gastric, duodenal ulcers). Received blood transfusions. Hold NSAIDs, anticoagulants. CBC check a.m. Acute kidney injury superimposed on chronic kidn ey disease 08/07/2022 Assessment & Plan (08/13/2022 6:45 AM AUTO SUSPENSION AND STEERING MECHANIC): Baseline creatinine around 1. Was elevated while inpatient. Will hold chlorthalidone now, till BMP results. If creatinine elevated may consider holding lisinopril as well. Avoid nephrotoxic drugs. Monitor renal function Assessment & Plan (08/07/2022 6:30 AM AUTO SUSPENSION AND STEERING MECHANIC): Baseline creatinine around 1. Was elevated while [...] 08/27/2021 Assessment & Plan (08/13/2022 6:45 AM AUTO SUSPENSION AND STEERING MECHANIC): Patient currently asymptomatic. No seizure episode. Continue home med Keppra 750 mg b.i.d.. Will check Keppra level next labs. Assessment & Plan (08/07/2022 6:31 AM AUTO SUSPENSION AND STEERING MECHANIC): Patient currently asymptomatic. No seizure episode. Continue home med Keppra 750 mg b.i.d.. Will check Keppra level next labs. Depressive disorder 08/27/2021 Assessment & Plan (08/13/2022 6:45 AM AUTO SUSPENSION AND STEERING MECHANIC): Mood currently stable. Continue home med sertraline 100 mg daily. Assessment & Plan (08/07/2022 6:31 AM AUTO SUSPENSION AND STEERING MECHANIC): Mood currently stable. Continue home med sertraline [...] 03/14/2019 Assessment & Plan (08/13/2022 6:44 AM AUTO SUSPENSION AND STEERING MECHANIC): Continue Lipitor 40 mg daily, Zetia Assessment & Plan (08/07/2022 6:32 AM AUTO SUSPENSION AND STEERING MECHANIC): Continue Lipitor 40 mg daily, Zetia Encounter for screening for cardiovascular disor ders 03/14/2019 Hypomagnesemia 03/14/2019 Palpitations 03/14/2019 Essential hypertension 03/08/2019 Assessment & Plan (08/13/2022 6:44 AM AUTO SUSPENSION AND STEERING MECHANIC): Blood pressure and heart rate fluctuates. Continue amlodipine 10 mg, lisinopril 40 mg, metoprolol 25 mg b.i.d. added due to AFib while inpatient. Will hold down 25 mg for now due to elevated creatinine last labs. Monitor blood pressure, adjust meds accordingly. Assessment & Plan (08/07/2022 6:22 AM AUTO SUSPENSION AND STEERING MECHANIC): Blood pressure and heart rate fluctuates. Continue [...] 04/28/2016 Assessment & Plan (08/13/2022 6:44 AM AUTO SUSPENSION AND STEERING MECHANIC): A1c 6.6 a year ago. Continue Lantus 12 units bedtime, Tradjenta 5 mg, glipizide 5 mg. Will check A1c level next labs. Monitor Accu-Cheks Assessment & Plan (08/07/2022 6:26 AM AUTO SUSPENSION AND STEERING MECHANIC): A1c 6.6 a year ago. Continue Lantus [...] on file Legal Sex Female 3:49 AM AUTO SUSPENSION AND STEERING MECHANIC Gender Identity Not on file Sexual Orientation [...] testing HEMOGLOBIN A1C Routine 08/28/2021 4:53 AM AUTO SUSPENSION AND STEERING MECHANIC OCCULT BLOOD, FECAL (FIT) Routine 03/18/2018 8:45 [...] BLOOD ORDERABLES Final Re sult BLAYNE VIERA [address] [facility] Department [place] [address] * (ABNORMAL) Hemoglobin A1c (08/28/2021 4:53 AM AUTO SUSPENSION AND STEERING MECHANIC) Hgb A1C 6.6(H) 4.0 - 5.6 % BLAYNE Comment:Testing performed by : [facility], [address] [place] [address]., [id number] Estimated Average Glucose 143 mg/dL BLAYNE Comment: The ADA recommends reporting an estimated Average Glucose (eAG) with all Hemoglobin A1c results using the equation derived from a study of 507 normal and diabetic adults. Minority populations were underrepresented and children were not included. (Diabetes Care 31:6623-1709, 2008). The eAG is not equivalent to a fasting glucose. Testing performed by: [facility], [address] [place] [address]., [id number] Blood 08/28/2021 4:53 AM AUTO SUSPENSION AND STEERING MECHANIC 08/28/2021 5:00 AM AUTO SUSPENSION AND STEERING MECHANIC Janet Guan DO LAB BLOOD ORDERABLES Final Re sult Performing Organization Address City/[facility]/ZIP Co de Phone Number [facility] [address] [facility] Department [place] [address] * Occult blood, fecal non neoplasm screening (03/18/2018 8:45 PM CDT) [facility] Stool Occult Blood POSITIVE NEGATIVE 03/18/2018 10:21 PM CDT [facility] HISTORICAL RESULTS 03/18/2018 8:45 PM CDT 03/18/2018 10:08 PM CDT Kassandra Saab NP LAB BODY FLUIDS AND STOOLS ORDER JIM Final Result [facility] HISTORICAL RESULTS * (ABNORMAL) TNI with LIPID PANEL (11/29/2016 3:21 PM CDT) [facility] Troponin I < 0.300 0.000 - 0.300 ng/mL 11/29/2016 3:54 PM CDT [facility] HISTORICAL RESULTS Comment: Reference using GEE Chemiluminescence Negative: Repeat in 4-6 hours as indicated. Triglycerides 124 0 - 199 mg/dL 11/29/2016 3:54 PM CDT [facility] HISTORICAL RESULTS Comment:12 hr pc highly davis mmended for Triglyceride Cholesterol 212(H) 0 - 199 mg/dL 11/29/2016 3:54 PM CDT [facility] HISTORICAL RESULTS Comment: Borderline: 200-239 High Risk: >239 HDL Cholesterol 82(H) 40 - 60 mg/dL 11/29/2016 3:54 PM CDT [facility] HISTORICAL RESULTS Comment: Major Risk < 40 mg/dL Moderate Risk 40-60 mg/dL Negative Risk > 60 mg/dL LDL Cholesterol, Calc 105 0 - 130 mg/dL 11/29/2016 3:54 PM CDT [facility] HISTORICAL RESULTS Comment:High Risk > 159 mg/d L Cholesterol/HDL Ratio 2.6 11/29/2016 3:54 PM T [facility] HISTORICAL RESULTS Comment: Cholesterol / HDL Ratio 3.5:1 or less is desirable. Cholesterol / HDL Ratio greater than 5:1 is considered higher risk for developing heart disease. 11/29/2016 3:21 PM CDT 11/29/2016 3:28 PM CDT Narrative [facility] HISTORICAL RESULTS - 11/29/2016 3:54 PM CDT us Lester Marcelino Mccann MD LAB BLOOD ORDERABLES Final Result [facility] HISTORICAL RESULTS from Last 3 Months or Most Recently Relevant to Health Maintenance Insurance MEDICARE MEDICARE IDTX ID[place] MEDICARE Advance Directives For more information, please contact: [phone] * Full Code (Latest Code Status on File) Date Activated Date Inactivated Comments 11/05/2022 11:01 AM 11/05/2022 5:09 PM Healthcare Agents on File Name Relationship Healthcare Agent [employer] Communication Prakash Olson Friend Second Alternate Health Care Agent Care Teams Improvement Auditor Relationship Specialty Start Date End Date Marcelino Gore PA [address] [place] [id number] PCP - General 09/08/19
[2024-11-03 13:56] LABS: Basophils Absolute Auto 0.1 K/mm3 (0.0-0.1); Basophils Percent Auto 1.3 % (0.2-1.2); Eosinophils Absolute Auto 0.1 K/mm3 (0-0.3); Eosinophils Percent Auto 2.7 % (0-4.4); Hematocrit 40.5 % (37.0-47.0); Hemoglobin 12.4 g/dL (12.0-15.0); Immature Granulocyte Absolute 0.01 K/mm3 (0.00-0.031); Immature Granulocyte Percent A 0.2 % (0-0.5); Lymphocytes Absolute Auto 1.22 K/mm3 (0.9-3.2); Lymphocytes Percent Auto 27.2 % (18.3-44.2); Mean Corpuscular HGB Conc 30.6 g/dl (32-36); Mean Corpuscular Hemoglobin 29.7 pg (26-34); Mean Corpuscular Volume 97.1 fl (80-100); Mean Platelet Volume 12.3 fl (7.4-10.4); Monocytes Absolute Auto 0.5 K/mm3 (0.1-0.6); Monocytes Percent Auto 10.7 % (2.6-8.5); Neutrophils Absolute Auto 2.6 K/mm3 (1.3-6.7); Neutrophils Percent Auto 57.9 % (45.5-73.1); Platelet Count Result 237 k/mm3 (150-375); Red Blood Count 4.17 M/mm3 (4.2-5.4); Red Cell Distribution Width 13.6 % (11.5-14.5); White Blood Count 4.5 K/mm3 (4.5-10.0)
[2024-11-03 14:11] LABS: Add Urine Microscopic? YES; Appearance Urine Clear (Clear); Bacteria Urine 4+ /hpf; Bilirubin Urine Negative (Negative); Blood Urine Negative (Negative); Color Urine Yellow (Yellow); Glucose Urine UA Negative (Negative); Ketones Urine Negative (Negative); Leukocyte Esterase Ur 2+ LEU/UL (Negative); Need Manual Microscopic Reviewed; Nitrate Urine Negative (Negative); Non Pathogenic Casts 0-2; Protein Urine Negative (Negative); RBC Urine 0-2 /hpf (0-2); Specific Grav Ur 1.012 (1.001-1.035); Squamous Epithelial Cell Urine Occasional /hpf (Few); Urobilinogen Urine 0.2 mg/dL (<2.0); WBC Urine 21-50 /hpf (0-3); pH Urine 6.5 (5.0-9.0)
[2024-11-03 14:24] LABS: Albumin Level 3.9 g/dL (3.5-5.1); Anion Gap 9 mmol/L (4-12); Blood Urea Nitrogen 23 mg/dL (7-17); Calcium 9.7 mg/dL (8.4-10.2); Carbon Dioxide 25 mmol/L (22-30); Chloride 109 mmol/L (98-107); Estimated Glomerular Filt Rate 50; Glucose 125 mg/dL (65-110); Phosphorus 3.6 mg/dL (2.5-4.5); Potassium 4.4 mmol/L (3.4-5.0); Sodium 143 mmol/L (137-145)
[2024-11-03 16:36] LABS: Parathyroid Intact 23.4 pg/mL (14.5-75.2)
== END 2024-11-03 10:24 | disposition home or self-care (01) ==
PROVIDERS: PCP Physician Assistant; Visit Provider Internal Medicine Nephrology
DX: R41.0 Disorientation, unspecified (principal); G40.409 Other generalized epilepsy and epileptic syndromes, not intractable, without status epilepticus; T42.6X Poisoning by, adverse effect of and underdosing of other antiepileptic and sedative-hypnotic drugs; E11.65 Type 2 diabetes mellitus with hyperglycemia; I12.9 Hypertensive chronic kidney disease with stage 1 through stage 4 chronic kidney disease, or unspecified chronic kidney disease; E11.22 Type 2 diabetes mellitus with diabetic chronic kidney disease; N18.9 Chronic kidney disease, unspecified
CPT/HCPCS: 80069; 81001; 83970; 85025; 87077; 87086; 87186

== ENCOUNTER 2024-11-19 11:19 | Outpatient (CLI) | payer MEDICARE, MEDICAID, SELFPAY ==
--- NOTE | ~2024-11-19 | MM_ITS ---
EXAMINATION: MM screening carlos a BI w kisha HISTORY: Screening TECHNIQUE: Craniocaudal and mediolateral oblique 3-D tomosynthesis images were obtained and synthetic 2-D images were generated. CAD analysis was submitted and interpreted. COMPARISON: 11/15/2010 BREAST PARENCHYMAL COMPOSITION: Not dense: There are scattered areas of fibroglandular density. FINDINGS: There are multiple developing nodular low-density asymmetries of the left breast. The right breast is stable without evidence for malignancy. IMPRESSION: 1. Developing low-density nodular asymmetries of the left breast 2. Additional mammographic views and possible breast ultrasound are recommended. BI-RADS Category 0: Incomplete: Needs additional imaging evaluation. Reviewed, dictated and finalized at location A. IMPRESSION: 1. Developing low-density nodular asymmetries of the left breast 2. Additional mammographic views and possible breast ultrasound are recommended . BI-RADS Category 0: Incomplete: Needs additional imaging evaluation.
--- OUTSIDE RECORDS SUMMARY | 2024-11-19 16:28 | XMS_ITS | Encounter Summary ---
Author Organization [facility] Address [address] [place] [address] Care Team Providers Care Die Sinker Apprentice Name Role Phone Allie Sinclair PA-C Primary Care Provider [phone] Encounter Details Date Type Department Care Team (Late st Contact Info) Description 11/16/2024 Results Follow-Up Formerly [facility] [address] Brianna Victoria RN [facility] - [address] [facility] - [facility] Social History Tobacco Use Types Packs/Day Years Used Date Smoking Tobacco: Never Passive Smoke Exposure: Never Smokeless Tobacco: Never Alcohol Use Standard Drinks/Week Comments Not Currently 0 (1 standard drink = 0.6 oz pur e alcohol) socially [facility] Utilities Answer Date Recorded In the past 12 months has [employer] electric, gas, oil, or water [employer] threatened to shut off services in your [...] any time in the past 12 m [facility], were you homeless or living in a penitentiary (including now)? No 05/27/2024 Comments No Sex and Gender Information Value Date Recorded Sex Assigned at Female 09/20/2024 9:45 AM ROGER Legal Sex Female 6:56 PM CDT Gender [...] Dai RN Active documented in this encounter Plan of Treatment Upcoming Encounters Date Type Department Care Team (Late st Contact Info) Description 12/15/2024 11:20 AM CDT Office Visit [facility] - [address], [facility] [address] [place] [phone] Justine Can MD [address] [place] [address] 03/02/2025 10:20 AM CDT [facility] - [address], [address] [place] [phone] Justine Can MD [address] [place] [address] 04/04/2025 10:30 AM CDT Office Visit [facility] [address] [place] [address] Jefry Tineo MD [facility]. [facility] [address] [place] [address] documented as of this encounter Visit Diagnoses Not on filedocumented in this encounter Care Teams Die Sinker Apprentice Relationship Specialty Start Date End Date Allie Sinclair PA-C PCP - General PHYSICIAN FOIL WRAPPER 01/29/23 documented as of this encounter
--- OUTSIDE RECORDS SUMMARY | 2024-11-19 16:28 | XMS_ITS | Clinical Summary ---
Author Organization [facility] Address [address] [place] [phone] Phone Care Team Providers Care Mail Censor Name Role Phone Allie Sinclair Primary Care Provider [phone] Allergies No known active allergies Medications atorvastatin (LIPITOR) 40 MG tablet Onee tablet at bedtime 0 04/28/20 16 Active acetaminophen (TYLENOL) 325 MG tablet Take 2 tablets by mouth in the morning and 2 tablets in the evening. Active metoprolol tartrate (LOPRESSOR) 25 MG tablet Take 25 mg by mouth every 12 (twelve) hours Active Cholecalcifero l (Vitamin D3) 1.25 MG (14218 UT) capsule Take 50,000 Units by mouth per week Active amLODIPine (NORVASC) 10 MG tablet Take [...] (one) time each day Active FLUoxetine (PROzac) 20 MG capsule Take 20 mg by mouth 1 (one) time each [...] each day if needed for constipation Active ciprofloxacin (CIPRO) 250 MG tablet Take 250 mg by mouth in the morning and 250 mg in the evening. Active QUEtiapine (SEROQUEL) 12.5 MG tablet Take 12.5 mg by mouth in the morning and 12.5 mg in the evening. 025 Discontinued Active Problems Problem Noted Date Diagnosed Date Urinary tract infectious disease 11/09/2024 Candidiasis of skin 11/09/2024 Secondary hyperparathyroidism of renal origin Hypertensive chronic kidney disease with stage 1 through stage 4 chronic kidney disease, or unspecified chronic kidney disease 04/28/2016 Stage 3a chronic kidney disease 04/28/2016 Type 2 diabetes mellitus wit h other diabetic kidney complication 04/28/2016 Resolved Problems Problem Noted Date Diagnosed Date Resolved Date Other retention of urine 05/04/2020 Immunizations Immunization Administration Dates Next Due Influenza [...] on file Legal Sex Female 7:35 AM [facility] Gender Identity Not on file Sexual Orientation Not on file Last Filed Vital Signs Vital Sign Reading Time Taken Comments Blood Pressure 116/71 11/10/2024 1:21 PM CDT Pulse 69 11/10/2024 1:21 PM CDT Temperature - - Respiratory Rate - - Oxygen Saturation 98% 03/12/2023 1:47 PM CDT Inhaled Oxygen Concentration - - Weight 79.8 kg (176 lb) 11/10/2024 1:21 PM CDT Height 170.2 cm (5' 7 ) 11/10/2024 1:21 PM CDT Body Mass Index 27.57 11/10/2024 1:21 PM CDT Plan of Treatment Health Maintenance Due Date Last Done Comments Diabetic Foot Exam 01/14/1964 Ophthalmology Exam 01/14/1964 Pneumococcal PPSV23/PCV13 65 + Years / High and Highest Risk (1 of 5 - PCV) 1973 Influenza Vaccine (Season Ended) 2025 05/04/2023, 05/10/2021, 05/17/2019, Additional history exists Insurance MEDICARE [facility] MEDICARE Care Teams Mail Censor Relationship Specialty Start Date End Date Allie Sinclair PA [address] [place] [address] PCP - General Family Medicine 11/08/24
--- OUTSIDE RECORDS SUMMARY | 2024-11-19 16:28 | XMS_ITS | CONTINUITY OF CARE DOCUMENT ---
Author Name jaqueline parsons Address Unknown Organization [facility] Address [address] [facility] [address] [place] [address] Phone [phone] Care Team Providers Care Splicer Machine Operator Name Role Phone Lc Abernathy MD Unavailable [...] In-person encounter Office Visit Lc Abernathy MD [place] [facility] 4 - 5 In-person encounter Office Visit Lc [place] [facility] 3 - 3 In-person encounter Office Visit Lc Abernathy MD [place] [facility] 6 - 6 In-person encounter Office Visit Lc Abernathy MD [place] [facility] Cardiology examinationFamily History of Hypertension:Family History of CVA or Stroke:Family History of CVA or Stroke:Family History of Hypertension:HTN essentialDiabetes mellitusPalpitationsHyperlipidemia VITAL SIGNS Date Observation Value Provider Body Mass Index (Ratio) 38.37 kg/m2 Dallas Abernathy MD blood pressure, diastolic 80 mm[Hg] Li nkLog blood pressure, systolic 130 mm[Hg] Estella kLog blood pressure, cuff size large Jonathon xiao Nito blood pressure, diastolic 80 mm[Hg] Jonathon ninoska Nito blood pressure, systolic 130 mm[Hg] Nadia brown [place] oxygen saturation, oximetry 97 % [facility] respiratory rate E&M 15 /min [facility] pulse rate 74 /min [facility] weight E&M 245 [lb_av] [facility] height E&M 67 [in_i] [facility] Body Mass Index (Ratio) 38.68 kg/m2 Dallas [...] Policy type / Coverage type Dinesh red alliance party ID [facility] [id number] [place] MEDICARE PART B Medicare [id number] ADVANCE DIRECTIVES Name Date DISCUSSED - NO DECISION MADE TREATMENT PLAN Date Name Performer [id number],S, H er updated medication list for this problem includes: Ezetimibe 10 Mg Tablet (Ezetimibe) ..... Take 1 tablet once a day Atorvastatin 40 Mg Tablet (Atorvastatin) ..... Take 1 tablet once a day cL Abernathy MD [id number],B, B P today: 130/80 P rior BP: 187/84 (09/30/2021) Her updated medication list for this problem includes: Lisinopril 20 Mg Tablet (Lisinopril) ..... Take 1 tablet by mouth once a day Metoprolol Tartrate 25 Mg Tablet (Metoprolol tartrate) ..... 1 tablet twice a day Lc Abernathy MD [id number],B, N o palps. Tele monitor showed sinus bradycardia with extra beats, no significant arrhythmias. Lc Abernathy MD [id number],S, P er PCP Her updated medication list for this problem includes: Lisinopril 20 Mg Tablet (Lisinopril) ..... Take 1 tablet by mouth once a day Glipizide 5 Mg Tablet (Glipizide) ..... Take 1 tablet once a day Januvia 100 Mg Tablet (Sitagliptin) ..... Take 1 tablet once a day Lc Abernathy MD [id number],C, N o palps. Currently on a heart monitor since being in the hospital . Lc Abernathy MD [id number],C, H ad an admission to [facility] for a grand mal seizure. Keppra was increased in the hospital. Feeling well today Lc Abernathy MD [id number],C, H er updated medication list for this problem includes: Ezetimibe 10 Mg Tablet (Ezetimibe) ..... Take 1 tablet once a day Atorvastatin 40 Mg Tablet (Atorvastatin) ..... Take 1 tablet once a day Lc Abernathy MD [id number],C,B P elevated, will increase Lisinopril to 20 [...] MD Cardiology: H ad an admission to [facility] for a grand mal seizure. Keppra [...] a telesentry to see if I can coal picker arrhythmias. Lc Abernathy MD Cardiology New [...]
--- OUTSIDE RECORDS SUMMARY | 2024-11-19 16:28 | XMS_ITS | Clinical Summary ---
Author Organization [facility] Address [address] [place] [address] Care Team Providers Care Nc Manager Name Role Phone Allie Sinclair PA-C Primary Care Provider [phone]- [phone] Allergies Active Allergy Reactions Criticality Noted Date Comments Aspartame Diarrhea 07/26/2022 Morphine Other (see comment) High 09/10/2023 Pt had bad experience: Acute drug intoxication - called EMS, almost had to complete temporary HD - went to [facility] Medications amlodipine 10 MG tablet Take 1 tablet (10 mg total) by mouth daily. 3 10/29/2017 Active atorvastatin 40 MG tablet Take 1 tablet (40 mg total) by mouth daily. 0 08/31/2017 Active metoprolol tartrate (LOPRESSOR) 25 MG tablet Take 1 tablet (25 mg total) by mouth every 12 (twelve) hours. 01/30/2023 Active aspirin 81 MG chewable tablet Chew 1 tablet (81 mg total) by mouth daily. Active fenofibrate 160 MG tablet Take 1 tablet (160 mg total) by mouth daily. Active insulin glargine (BASAGLAR KWIKPEN) 100 UNIT/ML injection (PEN) Inject 20 Units into the skin nightly at bedtime. 18 mL 03/19/2024 Active FLUoxetine (PROZAC) 10 MG capsule Take 1 capsule (10 mg total) by mouth daily. 05/24/2024 Active linaGLIPtin (TRADJENTA) 5 MG tablet Take 1 tablet (5 mg total) by mouth daily. Active levETIRAcetam (KEPPRA) 1000 MG tablet Take 1 tablet (1,000 mg total) by mouth 2 (two) times daily. 60 tablet 05/31/2024 Active Senna (SENOKOT) 8.6 MG tablet Take 1 tablet (8.6 mg total) by mouth. Active lacosamide (VIMPAT) 100 MG TabIndications: Seizure disorder ([facility]) Take 1 tablet (100 mg total) by mouth 2 (two) times daily. 60 tablet 10/14/2024 Active Active Problems Problem Noted Date Diagnosed Date Confusion 05/26/2024 Acute metabolic encephalopathy 03/15/2024 Ida-neck deformity of left finger(s) 02/25/2024 Obstructive sleep apnea syndrome 10/09/2022 Atrial fibrillation ([facility]) 08/26/2022 Obesity, Class II, BMI 35-39.9 07/12/2022 Paroxysmal atrial fibrillati on with rapid ventricular response ([facility]) 07/12/2022 Overview (02/13/2023): Last Assessment & Plan: Patient developed paroxysmal AFib while inpatient, was started on metoprolol 25 mg b.i.d. and Eliquis 5 mg b.i.d., which later placed on hold due to GI Tachycardia 07/11/2022 H/O: CVA (cerebrovascular accident) 07/08/2022 Altered mental status 07/07/2022 COVID-19 virus infection 08/27/2021 TIA (transient ischemic attack) 08/27/2021 Seizure disorder ([facility]) 10/26/2020 Hyperlipidemia 03/14/2019 Overview (02/13/2023): Last Assessment [...] mellitus wit h other diabetic kidney complication ([facility]) 04/28/2016 Overview (02/13/2023): Last Assessment & Plan: A1c 6.6 a year ago. Continue Lantus 12 units bedtime, Tradjenta 5 mg, glipizide 5 mg. Will check A1c level next labs. Monitor Accu-Cheks Encounters Date Type Department Care Team Description 11/16/2024 Results Follow-Up [facility] [place], [address] [place] [address] Brianna Victoria, RN CLINIC - [facility] - Today 10/20/2024 Telephone [facility] [address] [facility], [address] [place] [phone] Justine Can MD Question 10/14/2024 Orders Only [facility] - [address], [address] [place] [phone] Destiney Wheeler MA 10/14/2024 Telephone [facility] [address] [facility], [address] [place] [address] Justine Can MD Medication 10/11/2024 10:20 AM CDT Office Visit [facility] [address] [facility], [address] [place] [address] Justine Can MD Follow Up (seizure) 10/11/2024 Travel 10/06/2024 Telephone [facility] [address] [facility], [address] [place] [address] Justine Can MD Information 09/27/2024 11:15 AM CDT Telephone [facility] [place] [address] Deandra Mcghee PA Holter Monitor 09/22/2024 Telephone [facility] [address] [facility], [address] [place] [address] Justine Can MD Information 09/20/2024 10:00 AM MANAGER ER Office Visit [facility] [place] [address] Deandra Mcghee PA Follow Up; Atrial Fibrillation 09/20/2024 Telephone [facility] [address] [facility], [address] [place] [address] Justine Can MD Appointment Request; Information 09/20/2024 Travel 08/29/2024 10:20 AM MANAGER ER Office Visit [facility] [address] [facility], [address] [place] [address] Justine Can MD Follow Up 08/29/2024 Travel from Last 3 Months Immunizations Immunization Administration Dates Next Due COVID-19 Vaccine (Generic) 09/27/2020,09/06/2020 Influenza (Generic) 05/06/2016,04/20/2015,2013 Influenza Adult (Generic) 05/04/2023,,05/17/2019,05/11/2017,11/08/2015,06/25/2015 Pneumococcal (Pneumovax 23) 05/17/2019 Tdap (Generic) 04/01/2022 [...] drink = 0.6 oz pur e alcohol) Set.fm [facility] ROV[facility] Answer Date Recorded In the past 12 months has [employer], gas, oil, or water [employer] threatened to shut off services in your [...] any time in the past 12 m [facility], were you homeless or living in a group home (including now)? No 05/27/2024 Comments No Sex and Gender Information Value Date Recorded Sex Assigned at Female 09/20/2024 9:45 AM MANAGER ER Legal Sex Female 6:56 PM CDT Gender Identity Not on file Sexual Orientation Not on file Last Filed Vital Signs Vital Sign Reading Time Taken Comments Blood Pressure 129/72 10/11/2024 10:28 AM CDT Pulse 65 10/11/2024 10:28 AM CDT Temperature 36.1 C (96.9 F) 08/29/2024 10:39 AM MANAGER ER Respiratory Rate 16 08/29/2024 10:39 AM MANAGER ER Oxygen Saturation 98% 10/11/2024 10:28 AM CDT Inhaled Oxygen Concentration - - Weight 79.4 kg (175 lb) 10/11/2024 10:28 AM CDT Height 170.2 cm (5' 7 ) 09/20/2024 9:56 AM MANAGER ER Body Mass Index 27.41 09/20/2024 9:56 AM MANAGER ER Plan of Treatment Upcoming Encounters Date Type Department Care Team (Late st Contact Info) Description 12/15/2024 11:20 AM CDT Office Visit [facility] [address] [facility], [address] [place] [address] Justine Can MD 3 [place] [address] 03/02/2025 10:20 AM CDT Office Visit [facility] [address] [facility], [address] [place] [phone] Justine Can MD 3 [facility] [place] [address] 04/04/2025 10:30 AM CDT Office Visit [facility], [address] [place] [address] Jefry Tineo MD Three [facility]. [address] [place] [address] Health Maintenance Due Date Last Done Comments [...] Additional history exists COVID-19 Vaccine (3 - 2023- season) 2024 09/27/2020, 09/06/2020 DTaP, Tdap and Td Vaccines (2 - Td or Tdap) 04/01/2032 04/01/2022 Hepatitis C Completed 07/24/2022 PHQ-2 (Physician [place]) Completed 10/11/2024 Meningococcal B Vaccine Aged Out No l onger eligible based on patient's age to complete this topic Meningococcal Vaccine Aged Out No aidee jayne eligible based on patient's age to complete this topic RSV Immunizations Under 20 Months Aged Out No longer eligible based on patient's age to complete this topic Medical Devices Implanted Type Area Franchise Sales Representative Device Identifier Shelf Expiration Date Model / Serial / Lot Plate Synthes 2.4 Va-Lcp Vlr Dist Radius 6h Hd/3h Shaft Right - [id number] Implanted:Qty: 1 on 11/24/2017 by Godwin Aguirre MD at [facility] Plate Right: Arm SYNTHES 11/24/2017 [id number] / / NA Screw Synthes 2.4 Locking Stardrive 14mm - [id number] Implanted:Qty: 2 on 11/24/2017 by Godwin Aguirre MD at [facility] Screw Right: Arm SYNTHES 11/24/2017 [id number] / / NA Screw Synthes 2.4 Locking Stardrive 16mm - [id number] Implanted:Qty: 1 on 11/24/2017 by Godwin Aguirre MD at [facility] Screw Right: Arm [employer]THES 11/24/2017 [id number] / / NA Screw Synthes 2.4 Locking Stardrive 18mm - [id number] Implanted:Qty: 1 on 11/24/2017 by Godwin Aguirre MD at [facility] Screw Right: Arm [employer]THES 11/24/2017 [id number] / / NA Screw Synthes 2.4 Locking Stardrive 20mm - [id number] Implanted:Qty: 1 on 11/24/2017 by Godwin Aguirre MD at [facility] Screw Right: Arm [employer]NTHES 11/24/2017 [id number] / / NA Screw Synthes 2.4 Locking Stardrive 18mm - [id number] Implanted:Qty: 1 on 11/24/2017 by Godwin Aguirre MD at [facility] Screw Right: Arm [employer]THES 11/24/2017 [id number] / / NA Screw Synthes 2.7 Cortical Self Tap 14mm - [id number] Implanted:Qty: 1 on 11/24/2017 by Godwin Aguirre MD at [facility] Right: Arm SYNTHES 11/24/2017 [id number] / / NA Screw Synthes 2.7 Cortical Self Tap 12mm - [id number] Implanted:Qty: 2 on 11/24/2017 by Godwin Aguirre MD at [facility] Right: Arm SYNTHES 11/24/2017 [id number] / / NA Explanted Type Area Franchise Sales Representative Device Identifier Shelf Expiration Date Model / Serial / Lot Wire Synthes 1.5mm Jenn 150mm W/Trocar Point - [id number] Implanted:Qty: 1 Explanted:Qty: 1 on 11/24/2017 by Godwin Aguirre MD at [facility] Right: Arm SYNTHES 11/24/2017 [id number] / / NA Procedures Procedure Name Priority Date/Time Associated Diagnosis Comments MOBILE CONTINUOUS TELEMETRY Routine 11/16/2024 12:38 PM CDT Paroxysmal A-fib ([facility]) HEMOGLOBIN, GLYCOSYLATED Routine 11/26/2022 from Last 3 Months or Most Recently Relevant to Health Maintenance Results * [facility] - [address] M[facility] - Today (11/16/2024 12:38 PM CDT) Impressions [facility] - 11/16/2024 12:38 PM CDT [place] [id number] MOBILE CARDIAC FOOD PROCESSING SCIENTIST REPORT Patient Name: Kerline Mohan : 1955 Cloth Stock Sorter Date: 10/13/2024 End Date: 11/11/2024 Performed At: [place], [place] Interpreting Advanced Clinical Specialist: Jefry Tineo MD PCP: ALLIE SINCLAIR PA-C Ordering Provider: ZURI Hendrix INDICATION: Paroxysmal atrial fibrillation DURATION OF MONITORIN days NUMBER OF TRANSMISSIONS: 17 (17 auto transmissions, 0 manual, 0 periodic) INTERPRETATION: A 30-day mobile cardiac equipment monitor phototypesetting analyzed. Interpretable data was 28 days, 14 hours and 35 minutes (97% of monitoring period). The baseline rhythm was first-degree AV block with sinus bradycardia. There was not atrial fibrillation or atrial flutter observed. A minimum heart rate was 43 bpm on 10/14/2024 at 4:04 AM. A maximum heart rate in sinus rhythm was 99 bpm on 10/25/2024 at 10:36 AM. There were 0 pauses observed. The auto triggered episodes were for sinus bradycardia with first-degree AV block, sinus bradycardia, supraventricular bigeminy, ventricular trigeminy, premature ventricular contractions, ventricular couplet, a supraventricular couplet, ventricular triplet,. The overall ectopy burden was low less than 1%. CONCLUSION: 30-day mobile cardiac telemetry was without evidence of atrial fibrillation or flutter. Interpreting Advanced Clinical Specialist: Dr. Jefry Tineo us Deandra KEATING CV VASCULAR ORDERABLES Final Result [facility] [employer] * HEMOGLOBIN, GLYCOSYLATED (11/26/2022) HGB A1C 9.1 % 11/26/2022 us Default History Genericprovider LABORATORY Final Result from Last 3 Months or Most Recently Relevant to Health Maintenance Insurance MEDICARE MEDICAID Advance Directives Documents on File Type Date Recorded Patient Multi Purpose Machine Operator Expl anation Advance Directives and Livin g Will 06/01/2024 3:14 PM * Full Code (Latest Code Status on File) Date Activated Date Inactivated Comments 05/26/2024 3:19 PM 05/31/2024 8:06 PM * Full Code Date Activated Date Inactivated Comments 03/15/2024 8:38 AM 03/19/2024 4:15 PM Healthcare Agents on File Name Relationship Healthcare Agent Relationshi p Communication Claudia GUARDADO Marques Daughter Health Care Agent Estrella (1st Alt) Flach Relative First Alter edward Health Care Agent Care Teams Nc Manager Relationship Specialty Start Date End Date Allie Sinclair PA-C PCP - General PHYSICIAN LOG COOKER 01/29/23
--- OUTSIDE RECORDS SUMMARY | 2024-11-19 16:28 | XMS_ITS | Encounter Summary ---
Author Organization [facility] Address [address] [place] [address] Care Team Providers Care Senior Analysis Specialist Name Role Phone Elias Sinclair PA-C Primary Care Provider +1- [phone] Reason for Visit * Reason Onset Date Comments Holter Monitor 09/27/2024 * Imaging (Routine) - Closed Specialty Diagnoses / Procedures Referred By Becki rojo Referred To Contact Cardiology Diagnoses Paroxysmal A-fib ([facility]) Procedures CLINIC - [id number] [facility] - Today Deandra Mcghee PA [address] [facility] [address] [place] [address] Phone: tel: fax: Referral ID Status Reason Start Date Expiration Date Visits Re quested Visits Authorized [id number] Closed 09/20/2024 09/20/2025 1 1 Encounter Details Date Type Department Care Team (Late st Contact Info) Description 09/27/2024 11:15 AM CDT Telephone [facility], [address] [place], [place] [id number] Deandra Mcghee PA [address] [facility] [address] [place] [address] Holter Monitor Social History Tobacco Use Types Packs/Day Years Used Date Smoking Tobacco: Never Smokeless Tobacco: Never Alcohol Use Standard Drinks/Week Comments Not Currently 0 (1 standard drink = 0.6 oz pur e alcohol) socially [facility] Utilities Answer Date Recorded In the past 12 months has e [employer], gas, oil, or water company threatened to [...] any time in the past 12 m [facility], were you homeless or living in a penitentiary (including now)? No 05/27/2024 Comments No Sex and Gender Information Value Date Recorded Sex Assigned at Female 09/20/2024 9:45 AM HAND EDGE BANDER Legal Sex Female 6:56 PM CDT Gender [...] documented in this encounter Progress Notes * Vira Lyn - 09/27/2024 9:47 AM CDT 30 DAY BG SHIPPED FED EX OUT: [id number] IN: [id number] documented in this encounter Plan of Treatment Upcoming Encounters Date Type Department Care Team (Late st Contact Info) Description 12/15/2024 11:20 AM CDT Office Visit [facility] [address] [facility], [address] [place] [address] Justine Can MD [address] [place] [address] 03/02/2025 10:20 AM CDT Office Visit [facility] - [address], [address] [place] [address] Justine Can MD [address] [place] [address] 04/04/2025 10:30 AM CDT Office Visit [facility] [facility], [address] [place] [address] Jefry Tineo MD [facility] [address] [place] [address] documented as of this encounter Procedures Procedure Name Priority Date/Time Associated Diagnosis Comments MOBILE CONTINUOUS TELEMETRY Routine 11/16/2024 12:38 PM CDT Paroxysmal A-fib ([facility]) documented in this encounter Results * CLINIC - [id number] MCT - Today (11/16/2024 12:38 PM CDT) Impressions [facility] - 11/16/2024 12:38 PM [facility] [place], [place] [address] MOBILE CARDIAC ENGINEER EXHAUSTER REPORT Patient Name: Kerline Mohan : 1955 Enrollment Processor Date: 10/13/2024 End Date: 11/11/2024 Performed At: [place], [place] Interpreting Blood Bank Assistant: Jefry Tineo MD PCP: ELIAS SINCLAIR PA-C Ordering Provider: ZURI Hendrix INDICATION: Paroxysmal atrial fibrillation DURATION OF MONITORIN days NUMBER OF TRANSMISSIONS: 17 (17 auto transmissions, 0 manual, 0 periodic) INTERPRETATION: A 30-day mobile cardiac monitoring and evaluation advisor analyzed. Interpretable data was 28 days, 14 [...] evidence of atrial fibrillation or flutter. Interpreting Blood Bank Assistant: Dr. Jefry Tineo us Deandra KEATING CV VASCULAR ORDERABLES Final Result [facility] documented in this encounter Visit Diagnoses Diagnosis Paroxysmal A-fib ([facility]) Atrial fibrillation documented in this encounter Care Teams Senior Analysis Specialist Relationship Specialty Start Date End Date Elias Sinclair PA-C PCP - General PHYSICIAN VETERINARY INSPECTOR 01/29/23 documented as of this encounter
--- OUTSIDE RECORDS SUMMARY | 2024-11-19 16:28 | XMS_ITS | Clinical Summary ---
Author Organization [facility] Address [address] [place] [address] Care Team Providers Care National Flatbed Truck Driver Name Role Phone Allie Sinclair PA-C Primary Care Provider [phone] Source Comments [facility],non-owned Affiliates and Associated Physician Practices is amultiple site organization consisting of ambulatory clinics and hospital sitesin [place], [place], [place] and [place]. This disclosure is being madepursuant to the Care Everywhere program and may not contain all information available regarding this patient. Last updated 18.[facility] Allergies Active Allergy Reactions Criticality Noted Date Comments Artificial Sweeteners Diarrhea Medium 07/26/2022 Aspartame Diarrhea Medium 07/26/2022 Morphine Other High 09/10/2023 Pt had bad experience: Acute drug intoxication - called EMS, almost had to complete temporary HD - went to [facility] Medications * Be aware that medications [...] 09/10/2023 midazolam (Nayzilam) 5 MG/0.1ML nasal spray [place] 0.1 mL into the nose as needed for Seizures Lasting longer than 5 minutes. Can administer second dose in other nostril if seizure continues after 10 minutes. 4 Each 5 09/04/19 Active Additional Information Patient not taking.Reported on 11/07/2022 Cholecalciferol 1.25 MG (38689 UT) cholecalciferol (vitamin D3) 1,250 mcg (50,000 unit) capsule TAKE 1 CAPSULE BY MOUTH EVERY WEEK WITH FOOD Active saline nasal spray ([place]; Baby [place]) 0.65 % nasal spray [place] 1 (one) spray to 2 (two) sprays [...] 07/07/20 23 Active Blood Glucose Monitoring Suppl ([employer] Verio Flex System) w/Device KIT USE TO CHECK BLOOD SUGAR THREE TIMES DAILY 05/04/20 23 Active amLODIPine (Norvasc) 10 MG tablet Take 1 (one) tablet by mouth every morning 07/21/19 24 Active fenofibrate (Lofibra) 160 MG tablet TAKE 1 TABLET BY MOUTH EVERY DAY WITH MEALS 08/17/19 24 Active [employer] Verio test strip USE TO CHECK BLOOD SUGAR TWICE DAILY 05/05/20 23 Active Lancets (RotoHogUCH DELICA PLUS 33G EXTRA FINE LANCET) USE [...] and cleaning.Pt will be dc today to [facility]. 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 Not hard at all 11/29/2022 [facility] - Occupational Stress [...] place to sleep or slept in a care home (including now)? No 11/29/2022 Comments No Sex and Gender Information Value Date Recorded Sex Assigned at Not on file Legal Sex Female 6:40 AM MCAT INSTRUCTOR Gender Identity Not on file Sexual Orientation Not on file Last Filed Vital Signs Vital Sign Reading Time Taken Comments Blood Pressure 123/68 09/17/2023 3:50 PM MCAT INSTRUCTOR Pulse 68 09/17/2023 3:50 PM MCAT INSTRUCTOR Temperature 36.5 C (97.7 F) 09/17/2023 3:27 PM MCAT INSTRUCTOR Respiratory Rate 13 09/17/2023 3:50 PM MCAT INSTRUCTOR Oxygen Saturation 98% 09/17/2023 3:50 PM MCAT INSTRUCTOR Inhaled Oxygen Concentration 25% 07/23/2022 1 0:00 AM MCAT INSTRUCTOR Weight 90.9 kg (200 lb 6.4 oz) 09/17/2023 12:34 PM MCAT INSTRUCTOR Height 170.2 cm (5' 7 ) 09/17/2023 12:34 PM MCAT INSTRUCTOR Body Mass Index 31.39 09/17/2023 12:34 PM MCAT INSTRUCTOR Plan of Treatment Health Maintenance Due Date [...] this topic Medical Devices Implanted Type Area Morning Show Newscast Producer Device Identifier Shelf Expiration Date Model / Serial / Lot Parth Bone Void 5cc Dbm Allosync Ptty Implanted:Qty: 2 on 11/25/2022 by Robbie Mccann MD at [facility] Left: Humerus [employer] 04/23/2026 / / Screw 3.5mm 32mm T15 Slf-Tap Lck Tpr Implanted:Qty: 1 on 11/25/2022 by Robbie Mccann MD at [facility] Left: Humerus [employer] [id number] / / Screw 3.5mm 36mm T15 Slf-Tap Lck Tpr Implanted:Qty: 1 on 11/25/2022 by Robbie Mccann MD at [facility] Left: Humerus [employer] [id number] / / Screw 3.5mm 38mm T15 Slf-Tap Lck Tpr Implanted:Qty: 1 on 11/25/2022 by Robbie Mccann MD at [facility] Left: Humerus [employer] [id number] / / Screw 3.5mm 42mm T15 Lck Slf-Tap Tip Tpr Implanted:Qty: 1 on 11/25/2022 by Robbie Mccann MD at [facility] Left: Humerus [employer] [id number] / / Screw 3.5mm 46mm T15 Slf-Tap Lck Tpr Implanted:Qty: 1 on 11/25/2022 by Robbie Mccann MD at [facility] Left: Humerus [employer] [id number] / / Screw 3.5mm 48mm T15 Slf-Tap Lck Tpr Implanted:Qty: 1 on 11/25/2022 by Robbie Mccann MD at [facility] Left: Humerus [employer] [id number] / / Screw 3.5mm 46mm T15 Lck Mldir Nonster Implanted:Qty: 1 on 11/25/2022 by Robbie Mccann MD at [facility] Left: Humerus [employer] [id number] / / Graft Bone Infs Rhbmp-2 Bvn Clgn Lg 8ml Implanted:Qty: 1 on 11/25/2022 by Robbie Mccann MD at [facility] Left: Humerus [employer] 07/20/2024 [id number] / / [id number] Graft Bone Almtr Dbm Canc 5ml Algrf Ptty - [id number] Implanted:Qty: 1 on 11/25/2022 by Robbie Mccann MD at [facility] Left: Humerus [employer] 09/22/2023 [id number] / [id number] / Alps Proximal Humerus Low Plate Left 11 H, 190mm Implanted:Qty: 1 on 11/25/2022 by Robbie Mccann MD at [facility] Left: Humerus [id number] / / Screw 3.5mm 20mm T15 Lopro Nonlock Implanted:Qty: 3 on 11/25/2022 by Robbie Mccann MD at [facility] Left: Humerus [employer] [id number] / / Screw 3.5mm 22mm T15 Nonlock Lopro Implanted:Qty: 1 on 11/25/2022 by Robbie Mccann MD at [facility] Left: Humerus [employer] [id number] / / Screw 3.5mm 24mm T15 Nonlock Lopro Implanted:Qty: 1 on 11/25/2022 by Robbie Mccann MD at [facility] Left: Humerus [employer] [id number] / / Screw 3.5mm 32mm T15 Nonlock Lopro Implanted:Qty: 1 on 11/25/2022 by Robbie Mccann MD at [facility] Left: Humerus [employer] [id number] / / Explanted Type Area Morning Show Newscast Producer Device Identifier Shelf Expiration Date Model / Serial / Lot Screw 3.5mm 36mm T15 Slf-Tap Lck Tpr Explanted:Qty: 1 on 11/25/2022 by Robbie Mccann MD at [facility] Left: Humerus [employer] [id number] / / Screw 3.5mm 48mm T15 Slf-Tap Lck Tpr Explanted:Qty: 2 on 11/25/2022 by Robbie Mccann MD at [facility] Left: Humerus [employer] [id number] / / Wire K 2mm 152mm Top Tray Ss Fx Explanted:Qty: 4 on 11/25/2022 by Robbie Mccann MD at [facility] Left: Humerus [employer] [id number] / / Screw 3.5mm 24mm T15 Nonlock Lopro Explanted:Qty: 1 on 11/25/2022 by Robbie Mccann MD at [facility] Left: Humerus [employer] [id number] / / Procedures Procedure Name Priority Date/Time Associated Diagnosis Comments RENAL FUNCTION PANEL AM Draw 12/04/2022 2:46 AM CDT HEMOGLOBIN A1C Routine 11/26/2022 1:18 AM CDT Other fracture of shaft of left humerus, subsequent encounter for fracture with malunion HEPATITIS SCREEN ACUTE AM Draw 07/24/2022 4:12 AM MCAT INSTRUCTOR from Last 3 Months or Most Recently Relevant to Health Maintenance Results * (ABNORMAL) RENAL FUNCTION PANEL (12/04/2022 2:46 AM CDT) BUN 7 7 - 26 mg/dL 12/04/2022 4:03 AM [facility] Creatinine 0.98(H) 0.56 - 0.96 mg/dL 12/04/2022 4:03 AM [facility] Sodium 149(H) 136 - 145 mmol/L 12/04/2022 4:03 AM [facility] Potassium 4.4 3.5 - 4.5 mmol/L 12/04/2022 4:03 AM [facility] Chloride 112(H) 98 - 107 mmol/L 12/04/2022 4:03 AM [facility] CO2 18(L) 22 - 29 mmol/L 12/04/2022 4:03 AM [facility] Glucose 155(H) 70 - 115 mg/dL 12/04/2022 4:03 AM [facility] Albumin 2.6(L) 3.4 - 5.0 g/dL 12/04/2022 4:03 AM [facility] Calcium 9.0 8.4 - 10.2 mg/dL 12/04/2022 4:03 AM [facility] Phosphorus 3.7 2.9 - 5.1 mg/dL 12/04/2022 4:03 AM [facility] Anion Gap 23(H) 8 - 18 12/04/2022 4:03 AM [facility] BUN/Creatinine Ratio 7 7 - 23 12/04/2022 4:03 AM [facility] Osmolality Calculated 309(H) 270 - 300 mOsm/kg 12/04/2022 4:03 AM [facility] eGFR by CKD-EPI 63(L) >=90 mL/min/1.7 3 m2 12/04/2022 4:03 AM [facility] Blood BLOOD SPECIMEN / Unknown Lab Venipuncture / Unknown 12/04/2022 2:46 AM CDT 12/04/2022 3:24 AM CDT Blaine Campo MD LAB - CHEMISTRY ORDERABLES Final Result [facility] [address] [place] [address], [facility] [phone] * (ABNORMAL) HEMOGLOBIN A1C (11/26/2022 1:18 AM CDT) Hemoglobin A1c 9.1(H) <=5.6 % 11/26/2022 1:26 PM [facility] Estimated Average Glucose 214 mg/dL 11/26/2022 1:26 PM [facility] Comment: HbA1c Interpretation: Normal : < 5.7% Pre-diabetes: 5.7-6.4% Diabetes: Equal to or greater than 6.5% Test results diagnostic of diabetes should be repeated for confirmation. Treatment target values recommended by ADA and other clinical organizations should be used to evaluate metabolic control in patients. Reference: [place] Diabetes Association, Standards of Care in Diabetes [...] ORDERABLES Mary l Result Performing Organization Address City/[facility]/ZIP Co de Phone Number [facility] [address] [place] [address], [place] [phone] * HEPATITIS SCREEN ACUTE (07/24/2022 4:12 AM MCAT INSTRUCTOR) Hepatitis A Virus Antibody IgM Non-react bartolome Non-reac tive 07/24/2022 5:11 AM MCAT INSTRUCTOR [facility] Hepatitis B Virus Surface Antigen Non-react bartolome Non-reac tive 07/24/2022 5:11 AM MCAT INSTRUCTOR [facility] Hepatitis B Core Virus Antibody IgM Non-react bartolome Non-reac tive 07/24/2022 5:11 AM MCAT INSTRUCTOR [facility] Hepatitis C Antibody Non-react bartolome Non-reac tive 07/24/2022 5:11 AM [facility] Comment:Hepatitis C Antibody screen indicates no serologic evidence of past or current infection with Hepatitis C Virus. Patients with unexplained liver disease who are immunocompromised or suspected of having acute Hepatitis C infection may benefit from Nucleic Acid Test (CHA) for Hepatitis C Viral RNA to confirm Hepatitis C status. Blood BLOOD SPECIMEN / Unknown Venipuncture / Unknown 07/24/2022 4:12 AM MCAT INSTRUCTOR 07/24/2022 4:37 AM [facility] Sarabjit Gutierrez MD LAB - CHEMISTRY ORDERAB LES Final Result Performing Organization Address [facility]/ZIP Co de Phone Number [facility] [address] [place] [id number], [facility] [phone] from Last 3 Months or Most Recently Relevant to Health Maintenance Insurance MEDICARE MEDICAID - [place] MEDICAID [facility] MEDICARE Advance Directives Documents on File Type Date Recorded Patient Loss Prevention Lead Expl anation Adv Directive/Living Will/POA 08/01/2022 11:56 [...] Claudia Blue Health Care Agent Care Teams National Flatbed Truck Driver Relationship Specialty Start Date End Date Allie Sinclair PA-C [address] [place] [phone] PCP - General 07/08/22
--- OUTSIDE RECORDS SUMMARY | 2024-11-19 16:28 | XMS_ITS | Encounter Summary ---
Author Organization [facility] Address [address] [place] [address] Phone Care Team Providers Care Vice Squad Police Officer Name Role Phone Allie Sinclair Primary Care Provider [phone] Reason for Visit * Reason Comments Med Refill Encounter Details Date Type Department Care Team ([facility] st Contact Info) Description 08/21/2024 Refill [facility] [address] [facility] [address] [place] [address] Lizzeth Mohan NP [address] [address] Social History Tobacco Use Types Packs/Day Years Used Date Smoking Tobacco: Never Smokeless Tobacco: Never Alcohol Use Standard Drinks/Week Comments Yes 0 (1 standard drink = 0.6 oz pure alcohol) Alcoholic Drinks/day: occasionally Comments Unknown Sex and Gender Information Value Date Recorded Sex Assigned at Not on file Legal Sex Female 7:35 AM [facility] Gender Identity Not on file Sexual Orientation Not on file documented as of this encounter Plan of Treatment Not on file documented as of this encounter Visit Diagnoses Not on filedocumented in this encounter Care Teams Vice Squad Police Officer Relationship Specialty Start Date End Date Allie Sinclair PA [address] [place] [phone] PCP - General Family Medicine 11/08/24 documented as of this encounter
--- OUTSIDE RECORDS SUMMARY | 2024-11-19 16:28 | XMS_ITS | Data Portability ---
Author Organization [place] - [facility] OFFICE Address [address] [place] [address] Care Team Providers Care Bookstore Clerk Name Role Phone ELIAS FIGUEROA Primary Care [...] By Organization Details Last Modified Time 10/14/2022 31108 Exercise advised Low cholesterol diet advised Low sodium diet advised. dejahi Not available 10/14/2022 13:23:36 11/04/2022 03135 Low cholesterol diet advised Low sodium diet [...] Address Organization Details Recorded Time Essential hypertension 40042369 Active 2022 Denny Vargas null, [place] - [facility] 18:31:18 Hyperlipidemia 09742925 Active 2022 Denny Varg[place], [place] [facility] 18:31:38 Diabetes mellitus 73055127 Active 2022 Denny Varg[place] [facility] 18:31:53 Tuberculosis 91229032 Active 2022 Denny Varg[place] [facility] 18:32:07 Vitamin D deficiency 90751799 Active 2022 Baldwin Mesto [place], [place] - [facility] 3 18:32:23 Hypomagnesemia 795502162 Active 2022 Baldwin [place] [facility] 3 18:32:33 Hypokalemia 62652815 Active 2022 Baldwin [place] [facility] 3 18:32:43 Depressive disorder 84612129 Active 2022 Baldwin [place] [facility] 3 18:32:50 Migraine 09462439 Active 2022 Baldwin M[place] [facility] 3 18:33:03 Carpal tunnel syndrome 10792346 Active 2022 [place] [facility] 3 18:33:16 Allergic rhinitis 77911921 Active 2022 [place] [facility] 3 18:33:36 Gallstone 220715714 Active 2022 [place] [facility] 3 18:33:55 Renal failure syndrome 87103927 Active 2022 [place] [facility] 3 18:34:09 Acute urinary tract infection 974602785 Active 2022 [place] [facility] 3 18:34:23 Contact dermatitis 31721378 Active 2022 [place] [facility] 3 18:34:38 Arthritis 8705992 Active 2022 [place] [facility] 3 18:34:45 Swelling of knee joint 390073895 Active 2022 [place] [facility] 3 18:35:00 Pain of shoulder region 60604219 Active 2022 Baldwin M[place] [facility] 3 18:35:16 Neck pain 92488394 Active 2022 Abldwin Mesto [place], [place] - [facility] 18:35:26 Plantar fasciitis 207489985 Active 2022 Baldwin Mes null, [facility] 18:35:43 Seizure 50308302 [facility] 18:35:56 Obstructive sleep apnea syndrome 87699945 Active 2022 [facility] 18:36:03 History of anemia vitamin B12 deficient 886450703 Active 2022 [facility] 18:36:37 Diverticulosis of colon 877421704 Active 2022 [facility] 18:36:57 Problem Notes None recorded. Procedures Surgical History Date Name Laterality Status Provider Name and Address Organization Details Recorded Time arthroscopic procedure completed [facility] 10/08/2022 18:40:15 tonsillectomy completed [facility] 10/08/2022 18:40:23 ligation of fallopian tube completed [facility] 10/08/2022 18:40:33 Brain aneurysm repr simple completed [facility] 10/08/2022 18:40:53 Imaging Results Imaging Date Name [...] Updated DateTime 3 170.18 cm 34.8 kg/m2 903841. 51 g 75 /min 16 /min 94 % 94 % 132 mm[Hg] 84 mm[Hg] Gilberto Carreon [facility] 3 13:13:32 Date Recorded Body height Body mass index (BMI) Body weight Heart rate Oxygen saturation Oxygen saturation in Arterial blood by Pulse oximetry Systolic blood pressure Diastolic blood pressure Provider Name and Address Organization Details Last Updated DateTime 3 170.18 cm 33.9 kg/m2 44756.1 1 g 85 /min 99 % 99 % 130 mm[Hg] 80 mm[Hg] Zuly Alexander [facility] 3 12:05:28 Social History None [...] [facility] Care 10/08/2022 18:30:44 pneumococcal polysaccharide PPV23 9 completed Baldwin Mesto null, [place] - [facility] 10/08/2022 18:31:03 Past Encounters Encounter ID Performer Location Encounter Start Date Encounter Closed Date Diagnosis/Indication Diagnosis SNOMED-CT Code Diagnosis ICD10 Code Diagnosis Note [id number] Juwan Newton MD [facility] [address] [place] [address] 10/14/2022 12:43:23 10/14/2022 13:26:45 Essential hypertension 02144695 I10 with fair control Hyperlipidemia 50221078 E78.5 Needs to keep LDL less than 70, and HDL more than 40 Will get lipid profile results from PCP Electrocar diogram abnormal 178298337 R94.31 Lexiscan Myoview stress test, pt can not walk. Has known coronary artery disease, with atypical symptoms now Chronic di astolic heart failure 977942578 I50.32 Obtain echo to evaluate for structural /functiona l disease. Edema of l ower extremity 170417655 R60.0 Obtain echo to evaluate for structural /functiona l disease. Pre-surger y evaluation 578463774 Z01.818 Lexiscan Myoview stress test, pt can not walk. Has known coronary artery disease, with atypical symptoms now, the patient is not able to walk on treadmill [id number] Juwan Newton MD [facility] [address] [place] [address] 11/04/2022 11:12:20 11/04/2022 12:35:12 Dyspnea on exertion 46607935 R06.09 US, echocardio gramLV chamber size is [...] well visualized . Atypical chest pain 1025 27348 R07.89 she has a positive stress test The patient will be scheduled for left heart catheteriz ation, with coronary angiogram, and possible PTCA/Stent . The procedure was discussed with the patient, and risks, benefits, and alternativ e options were explained. The patient was given informatio n about heart catheteriz ation and interventi onal procedures . The patient agrees to proceed. Dyslipidemia 072487516 E 78.5 continue with lipitor 40 mg daily Obstructiv e sleep apnea syndrome 57317195 G47.33 she has sleep study previously but it was mild per patient Essential hypertension 86732949 I10 with fair control Pre-surger y evaluation 662502893 Z01.818 with positive stress testThe patient will be scheduled for left heart catheteriz ation, with coronary angiogram, and possible PTCA/Stent . The procedure was discussed with the patient, and risks, benefits, and alternativ e options were explained. The patient was given informatio n about heart catheteriz ation and interventi onal procedures . The patient agrees to proceed. Paroxysmal atrial fibrillation 413429281 I48.0 in sinus rhythm todayshe is not on blood thinner nor aspirin Health Concerns Section Related Observation LastModified by Organization Detai ls LastModified Time None Recorded Concern Status LastModified by Organization Details LastModified Time None Recorded Advance Directives Directive None Recorded Payers Encounter Date Sequence Insurance Name Policy Number Policy Shepard Covered Member ID Shepard Member ID Guarantor Name 10/14/2022 1 [place] Kerline Martin [id number] Kerline Martin 10/14/2022 2 [place] [facility] Kerline Martin [id number] Kerline Martin 11/04/2022 1 [place] Kerline Martin [id number] Kerline Martin 11/04/2022 2 [place] [facility] Kerline Martin [id number] Kerline Martin Notes Date Note Type Note [...] AM headache. Juwan Newton MD [address] [place], [address], [facility] 10/14/2022 13:24:53 11/04/2022 text/html 10/14/22CC: dysp jose [...] somnolence and AM headache. BOB del rio [facility] 11/04/2022 12:47:11 OBGyn Episode No OBEpisode recorded.
--- OUTSIDE RECORDS SUMMARY | 2024-11-19 16:28 | XMS_ITS | Clinical Summary ---
Author Organization [address] [facility] [place] Address [address] [place] [id number] Care Team Providers Care Plating Engineer Name Role Phone Marcelino Gore Primary Care Provider + Allergies Active Allergy Reactions Criticality Noted Date Comments Aspartame Diarrhea Medium 07/26/2022 Morphine Other (See comments) High 09/10/2023 Pt had bad experience: Acute drug intoxication - called EMS, almost had to complete temporary HD - went to [facility] Medications acetaminophen (TYLENOL EXTRA STRENGTH) [...] 1 tablet (5 mg total) by mouth online advertising analyst before breakfast 4 Active fenofibrate (TRIGLIDE) 160 mg tabletIndication s:hyperlipidemia Take 1 tablet (160 mg total) by mouth online advertising analyst before breakfast Active dapagliflozin propanediol (FARXIGA) 10 mg tabletIndication s:type 2 diabetes mellitus Take 1 tablet (10 mg total) by mouth online advertising analyst before breakfast 3 Active aspirin 81 mg chewable tabletIndication s:prevention of thrombosis Take 1 tablet (81 mg total) by mouth online advertising analyst before breakfast 2 Active amLODIPine (NORVASC) 10 mg tabletIndication s:hypertension Take 1 tablet (10 mg total) by mouth online advertising analyst before breakfast 8 Active miconazole 2 % [...] Active Problems Problem Noted Date Diagnosed Date [place]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 Will start on amoxicillin 500 mg b.i.d. x5 days, doxycycline 100 mg b.i.d. x5 days, started on 08/09/22. Continue pain management with Tylenol 650 Q 6. Continue wound care. Assessment & Plan (08/09/2022 6:49 PM LIGHT TRUCK DRIVER): Has erythema, warmth with more drainage. Will start on amoxicillin 500 mg b.i.d. x5 days, doxycycline 100 mg b.i.d. x5 days. Continue pain management with Tylenol 650 Q 6. Continue wound care. Moderate vascular dementia w ithout behavioral disturbance, psychotic disturbance, mood disturbance, or anxiety 08/09/2022 Assessment & Plan (08/13/2022 6:45 AM LIGHT TRUCK DRIVER): Patient is pleasantly confused. No behaviors. Slums 16/30. Continue Zoloft 100 mg daily. Continue supportive care. Patient need supervision and care after discharge Assessment & Plan (08/09/2022 6:58 PM LIGHT TRUCK DRIVER): Patient is pleasantly confused. No behaviors. Slums 16/30. Continue Zoloft 100 mg daily. Continue supportive care. Patient need supervision and care after discharge Closed fracture of shaft of left humerus with routine healing 08/07/2022 Assessment & Plan (08/13/2022 6:42 AM LIGHT TRUCK DRIVER): Due to fall. Imaging revealed left humeral shaft fracture, complicated with radial nerve palsy. Orthopedic managed conservatively with brace. SHAMIKA PRADHAN. Pain management with Tylenol 650 Q 6. Patient had follow-up with Dr. Thomas today. Recommended to continue Left arm brace, according to special instructions for placement and cleaning.Pt will be dc today to [facility]. Assessment & Plan (08/09/2022 6:51 PM LIGHT TRUCK DRIVER): Pain overall controlled. Reminded patient that has follow-up with Dr. Thomas 08/11/2022. Daughter to provide transportation. Assessment & Plan (08/07/2022 6:17 AM LIGHT TRUCK DRIVER): Due to fall. Imaging revealed left humeral shaft fracture, complicated with radial nerve palsy. Orthopedic managed conservatively with brace. SHAMIKA PRADHAN. Pain management with Tylenol 650 Q 6. Patient follow-up with Dr. Thomas on 08/11/22 for repeat imaging and treatment plan Paroxysmal A-fib 08/07/2022 Assessment & Plan (08/13/2022 6:43 AM LIGHT TRUCK DRIVER): Patient developed paroxysmal AFib while inpatient, was started on metoprolol 25 mg b.i.d. and Eliquis 5 mg b.i.d., which later placed on hold due to GI Assessment & Plan (08/07/2022 6:18 AM LIGHT TRUCK DRIVER): Patient developed paroxysmal AFib while inpatient, was started on metoprolol 25 mg b.i.d. and Eliquis 5 mg b.i.d., which later placed on hold due to GI Gastrointestinal hemorrhage with melena 08/07/19 Assessment & Plan (08/13/2022 6:46 AM LIGHT TRUCK DRIVER): Patient was started on Eliquis for AFib, followed by acute blood loss anemia. Home med Plavix, Eliquis placed on hold. EGD done showed multiple gastric and duodenal ulcers. Status post blood transfusions. H pylori negative. Denies any melena or GI bleed now. Continue pantoprazole 40 mg b.i.d.. Avoid NSAIDs, AC till follow-up with GI. Assessment & Plan (08/07/2022 6:32 AM LIGHT TRUCK DRIVER): Patient was started on Eliquis for AFib, [...] 08/07/2022 Assessment & Plan (08/13/2022 6:43 AM LIGHT TRUCK DRIVER): 2/2 GIB (gastric, duodenal ulcers). Received blood transfusions. Hold NSAIDs, anticoagulants. CBC check a.m. Assessment & Plan (08/07/2022 6:20 AM LIGHT TRUCK DRIVER): 2/2 GIB (gastric, duodenal ulcers). Received blood transfusions. Hold NSAIDs, anticoagulants. CBC check a.m. Acute kidney injury superimposed on chronic kidn ey disease 08/07/2022 Assessment & Plan (08/13/2022 6:45 AM LIGHT TRUCK DRIVER): Baseline creatinine around 1. Was elevated while inpatient. Will hold chlorthalidone now, till BMP results. If creatinine elevated may consider holding lisinopril as well. Avoid nephrotoxic drugs. Monitor renal function Assessment & Plan (08/07/2022 6:30 AM LIGHT TRUCK DRIVER): Baseline creatinine around 1. Was elevated while [...] 08/27/2021 Assessment & Plan (08/13/2022 6:45 AM LIGHT TRUCK DRIVER): Patient currently asymptomatic. No seizure episode. Continue home med Keppra 750 mg b.i.d.. Will check Keppra level next labs. Assessment & Plan (08/07/2022 6:31 AM LIGHT TRUCK DRIVER): Patient currently asymptomatic. No seizure episode. Continue home med Keppra 750 mg b.i.d.. Will check Keppra level next labs. Depressive disorder 08/27/2021 Assessment & Plan (08/13/2022 6:45 AM LIGHT TRUCK DRIVER): Mood currently stable. Continue home med sertraline 100 mg daily. Assessment & Plan (08/07/2022 6:31 AM LIGHT TRUCK DRIVER): Mood currently stable. Continue home med sertraline [...] 03/14/2019 Assessment & Plan (08/13/2022 6:44 AM LIGHT TRUCK DRIVER): Continue Lipitor 40 mg daily, Zetia Assessment & Plan (08/07/2022 6:32 AM LIGHT TRUCK DRIVER): Continue Lipitor 40 mg daily, Zetia Encounter for screening for cardiovascular disor ders 03/14/2019 Hypomagnesemia 03/14/2019 Palpitations 03/14/2019 Essential hypertension 03/08/2019 Assessment & Plan (08/13/2022 6:44 AM LIGHT TRUCK DRIVER): Blood pressure and heart rate fluctuates. Continue amlodipine 10 mg, lisinopril 40 mg, metoprolol 25 mg b.i.d. added due to AFib while inpatient. Will hold down 25 mg for now due to elevated creatinine last labs. Monitor blood pressure, adjust meds accordingly. Assessment & Plan (08/07/2022 6:22 AM LIGHT TRUCK DRIVER): Blood pressure and heart rate fluctuates. Continue [...] 04/28/2016 Assessment & Plan (08/13/2022 6:44 AM LIGHT TRUCK DRIVER): A1c 6.6 a year ago. Continue Lantus 12 units bedtime, Tradjenta 5 mg, glipizide 5 mg. Will check A1c level next labs. Monitor Accu-Cheks Assessment & Plan (08/07/2022 6:26 AM LIGHT TRUCK DRIVER): A1c 6.6 a year ago. Continue Lantus [...] on file Legal Sex Female 3:49 AM LIGHT TRUCK DRIVER Gender Identity Not on file Sexual Orientation [...] testing HEMOGLOBIN A1C Routine 08/28/2021 4:53 AM LIGHT TRUCK DRIVER OCCULT BLOOD, FECAL (FIT) Routine 03/18/2018 8:45 [...] BLOOD ORDERABLES Final Re sult BLAYNE VIERA [address] [facility] [place] [address] * (ABNORMAL) Hemoglobin A1c (08/28/2021 4:53 AM LIGHT TRUCK DRIVER) Hgb A1C 6.6(H) 4.0 - 5.6 % BLAYNE Comment:Testing performed by : [facility], [address] [place] [address]., [id number] Estimated Average Glucose 143 mg/dL BLAYNE Comment: The ADA recommends reporting an estimated Average Glucose (eAG) with all Hemoglobin A1c results using the equation derived from a study of 507 normal and diabetic adults. Minority populations were underrepresented and children were not included. (Diabetes Care 31:7463-3761, 2008). The eAG is not equivalent to a fasting glucose. Testing performed by: [facility], [address] [place] [address]., [id number] Blood 08/28/2021 4:53 AM LIGHT TRUCK DRIVER 08/28/2021 5:00 AM LIGHT TRUCK DRIVER Janet Guan DO LAB BLOOD ORDERABLES Final Re sult Performing Organization Address City/[facility]/ZIP Co de Phone Number [facility] [address] [facility] Department [place] [address] * Occult blood, fecal non neoplasm screening (03/18/2018 8:45 PM CDT) [facility] Stool Occult Blood POSITIVE NEGATIVE 03/18/2018 8:45 PM CDT 03/18/2018 10:08 PM CDT Kassandra Saab NP LAB BODY FLUIDS AND STOOLS ORDER JIM Final Result [facility] HISTORICAL RESULTS * (ABNORMAL) TNI with LIPID PANEL (11/29/2016 3:21 PM CDT) [facility] Troponin I < 0.300 0.000 - [...] 11/29/2016 3:28 PM CDT Narrative [facility] HISTORICAL RESULTS - 11/29/2016 3:54 PM CDT us Lester Marcelino Mccann MD LAB BLOOD ORDERABLES Final Result [facility] HISTORICAL RESULTS from Last 3 Months or Most Recently Relevant to Health Maintenance Insurance MEDICARE MEDICARE IDUT IDUT MEDICARE Advance Directives For more information, please contact: [phone] * Full Code (Latest Code Status on File) Date Activated Date Inactivated Comments 11/05/2022 11:01 AM 11/05/2022 5:09 PM Healthcare Agents on File Name Relationship Healthcare Agent [facility] Communication Prakash Olson Friend Second Alternate Health Care Agent Care Teams Plating Engineer Relationship Specialty Start Date End Date Marcelino Gore PA [address] [place] [id number] PCP - General 09/08/19
--- OUTSIDE RECORDS SUMMARY | 2024-11-19 16:28 | XMS_ITS | Referral Summary ---
Author Organization [facility] [address] [place] [facility] [place] Address [address] [place] [id number] Care Team Providers Care Corporate Analyst Name Role Phone Marcelino Gore Primary Care Provider + Allergies Active Allergy Reactions Criticality Noted Date Comments Aspartame Diarrhea Medium 07/26/2022 Morphine Other (See comments) High 09/10/2023 Pt had bad experience: Acute drug intoxication - called EMS, almost had to complete [facility] HD [facility] Medications acetaminophen (TYLENOL EXTRA STRENGTH) 500 [...] 1 tablet (5 mg total) by mouth azure principal solution specialist before breakfast 4 Active fenofibrate (TRIGLIDE) 160 mg tabletIndication s:hyperlipidemia Take 1 tablet (160 mg total) by mouth azure principal solution specialist before breakfast Active dapagliflozin propanediol (FARXIGA) 10 mg tabletIndication s:type 2 diabetes mellitus Take 1 tablet (10 mg total) by mouth azure principal solution specialist before breakfast 3 Active aspirin 81 mg chewable tabletIndication s:prevention of thrombosis Take 1 tablet (81 mg total) by mouth azure principal solution specialist before breakfast 2 Active amLODIPine (NORVASC) 10 mg tabletIndication s:hypertension Take 1 tablet (10 mg total) by mouth azure principal solution specialist before breakfast 8 Active miconazole 2 % [...] Active Problems Problem Noted Date Diagnosed Date [place]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 Will start on amoxicillin 500 mg b.i.d. x5 days, doxycycline 100 mg b.i.d. x5 days, started on 08/09/22. Continue pain management with Tylenol 650 Q 6. Continue wound care. Assessment & Plan (08/09/2022 6:49 PM PRISON OFFICER): Has erythema, warmth with more drainage. Will start on amoxicillin 500 mg b.i.d. x5 days, doxycycline 100 mg b.i.d. x5 days. Continue pain management with Tylenol 650 Q 6. Continue wound care. Moderate vascular dementia w ithout behavioral disturbance, psychotic disturbance, mood disturbance, or anxiety 08/09/2022 Assessment & Plan (08/13/2022 6:45 AM PRISON OFFICER): Patient is pleasantly confused. No behaviors. Slums 16/30. Continue Zoloft 100 mg daily. Continue supportive care. Patient need supervision and care after discharge Assessment & Plan (08/09/2022 6:58 PM PRISON OFFICER): Patient is pleasantly confused. No behaviors. Slums 16/30. Continue Zoloft 100 mg daily. Continue supportive care. Patient need supervision and care after discharge Closed fracture of shaft of left humerus with routine healing 08/07/2022 Assessment & Plan (08/13/2022 6:42 AM PRISON OFFICER): Due to fall. Imaging revealed left humeral shaft fracture, complicated with radial nerve palsy. Orthopedic managed conservatively with brace. SHAMIKA PRADHAN. Pain management with Tylenol 650 Q 6. Patient had follow-up with Dr. Thomas today. Recommended to continue Left arm brace, according to special instructions for placement and cleaning.[facility] Assessment & Plan (08/09/2022 6:51 PM PRISON OFFICER): Pain overall controlled. Reminded patient that has follow-up with Dr. Thomas 08/11/2022. Daughter to provide transportation. Assessment & Plan (08/07/2022 6:17 AM PRISON OFFICER): Due to fall. Imaging revealed left humeral shaft fracture, complicated with radial nerve palsy. Orthopedic managed conservatively with brace. SHAMIKA PRADHAN. Pain management with Tylenol 650 Q 6. Patient follow-up with Dr. Thomas on 08/11/22 for repeat imaging and treatment plan Paroxysmal A-fib 08/07/2022 Assessment & Plan (08/13/2022 6:43 AM PRISON OFFICER): Patient developed paroxysmal AFib while inpatient, was started on metoprolol 25 mg b.i.d. and Eliquis 5 mg b.i.d., which later placed on hold due to GI Assessment & Plan (08/07/2022 6:18 AM PRISON OFFICER): Patient developed paroxysmal AFib while inpatient, was started on metoprolol 25 mg b.i.d. and Eliquis 5 mg b.i.d., which later placed on hold due to GI Gastrointestinal hemorrhage with melena 08/07/19 Assessment & Plan (08/13/2022 6:46 AM PRISON OFFICER): Patient was started on Eliquis for AFib, followed by acute blood loss anemia. Home med Plavix, Eliquis placed on hold. EGD done showed multiple gastric and duodenal ulcers. Status post blood transfusions. H pylori negative. Denies any melena or GI bleed now. Continue pantoprazole 40 mg b.i.d.. Avoid NSAIDs, AC till follow-up with GI. Assessment & Plan (08/07/2022 6:32 AM PRISON OFFICER): Patient was started on Eliquis for AFib, [...] 08/07/2022 Assessment & Plan (08/13/2022 6:43 AM PRISON OFFICER): 2/2 GIB (gastric, duodenal ulcers). Received blood transfusions. Hold NSAIDs, anticoagulants. CBC check a.m. Assessment & Plan (08/07/2022 6:20 AM PRISON OFFICER): 2/2 GIB (gastric, duodenal ulcers). Received blood transfusions. Hold NSAIDs, anticoagulants. CBC check a.m. Acute kidney injury superimposed on chronic kidn ey disease 08/07/2022 Assessment & Plan (08/13/2022 6:45 AM PRISON OFFICER): Baseline creatinine around 1. Was elevated while inpatient. Will hold chlorthalidone now, till BMP results. If creatinine elevated may consider holding lisinopril as well. Avoid nephrotoxic drugs. Monitor renal function Assessment & Plan (08/07/2022 6:30 AM PRISON OFFICER): Baseline creatinine around 1. Was elevated while [...] 08/27/2021 Assessment & Plan (08/13/2022 6:45 AM PRISON OFFICER): Patient currently asymptomatic. No seizure episode. Continue home med Keppra 750 mg b.i.d.. Will check Keppra level next labs. Assessment & Plan (08/07/2022 6:31 AM PRISON OFFICER): Patient currently asymptomatic. No seizure episode. Continue home med Keppra 750 mg b.i.d.. Will check Keppra level next labs. Depressive disorder 08/27/2021 Assessment & Plan (08/13/2022 6:45 AM PRISON OFFICER): Mood currently stable. Continue home med sertraline 100 mg daily. Assessment & Plan (08/07/2022 6:31 AM PRISON OFFICER): Mood currently stable. Continue home med sertraline [...] 03/14/2019 Assessment & Plan (08/13/2022 6:44 AM PRISON OFFICER): Continue Lipitor 40 mg daily, Zetia Assessment & Plan (08/07/2022 6:32 AM PRISON OFFICER): Continue Lipitor 40 mg daily, Zetia Encounter for screening for cardiovascular disor ders 03/14/2019 Hypomagnesemia 03/14/2019 Palpitations 03/14/2019 Essential hypertension 03/08/2019 Assessment & Plan (08/13/2022 6:44 AM PRISON OFFICER): Blood pressure and heart rate fluctuates. Continue amlodipine 10 mg, lisinopril 40 mg, metoprolol 25 mg b.i.d. added due to AFib while inpatient. Will hold down 25 mg for now due to elevated creatinine last labs. Monitor blood pressure, adjust meds accordingly. Assessment & Plan (08/07/2022 6:22 AM PRISON OFFICER): Blood pressure and heart rate fluctuates. Continue [...] 04/28/2016 Assessment & Plan (08/13/2022 6:44 AM PRISON OFFICER): A1c 6.6 a year ago. Continue Lantus 12 units bedtime, Tradjenta 5 mg, glipizide 5 mg. Will check A1c level next labs. Monitor Accu-Cheks Assessment & Plan (08/07/2022 6:26 AM PRISON OFFICER): A1c 6.6 a year ago. Continue Lantus [...] on file Legal Sex Female 3:49 AM PRISON OFFICER Gender Identity Not on file Sexual Orientation [...] testing HEMOGLOBIN A1C Routine 08/28/2021 4:53 AM PRISON OFFICER OCCULT BLOOD, FECAL (FIT) Routine 03/18/2018 8:45 [...] BLOOD ORDERABLES Final Re sult BLAYNE VIERA [address] [facility] Department [place] [address] * (ABNORMAL) Hemoglobin A1c (08/28/2021 4:53 AM PRISON OFFICER) [facility] Hgb A1C 6.6(H) 4.0 - 5.6 % BLAYNE Comment:Testing performed by : [address] [address] Estimated Average Glucose 143 mg/dL BLAYNE Comment: The ADA recommends reporting an estimated Average Glucose (eAG) with all Hemoglobin A1c results using the equation derived from a study of 507 normal and diabetic adults. Minority populations were underrepresented and children were not included. (Diabetes Care 31:2132-1933, 2008). The eAG is not equivalent to a fasting glucose. Testing performed by: [facility], [address] [place] [address]., [id number] Blood 08/28/2021 4:53 AM PRISON OFFICER 08/28/2021 5:00 AM PRISON OFFICER Janet Guan DO LAB BLOOD ORDERABLES Final Re sult [facility] [address] [facility] Department [place] [address] * Occult blood, fecal non neoplasm screening (03/18/2018 8:45 PM CDT) [facility] Stool Occult Blood POSITIVE NEGATIVE 03/18/2018 8:45 PM CDT 03/18/2018 10:08 PM CDT Kassandra Saab NP LAB BODY FLUIDS AND STOOLS ORDER JIM Final Result [facility] HISTORICAL RESULTS * (ABNORMAL) TNI with LIPID PANEL (11/29/2016 3:21 PM CDT) [facility] Troponin I < 0.300 0.000 - [...] - 130 mg/dL 11/29/2016 3:54 PM CDT [facility] HISTORICAL RESULTS Comment:High Risk > 159 mg/d [...] [facility] MEDICARE MEDICARE IDTX ID[place] MEDICARE Advance Directives For more information, please contact: [phone] * Full Code (Latest Code Status on File) Date Activated Date Inactivated Comments 11/05/2022 11:01 AM 11/05/2022 5:09 PM Healthcare Agents on File Name Relationship Healthcare Agent Relationsfl p Communication Prakash Olson Friend Second Alternate Health Care Agent Care Teams Corporate Analyst Relationship Specialty Start Date End Date Marcelino Gore PA [address] [place] [id number] PCP - General 09/08/19
== END 2024-11-19 11:20 | disposition home or self-care (01) ==
PROVIDERS: PCP Physician Assistant; Visit Provider Physician Assistant
DX: Z12.31 Encounter for screening mammogram for malignant neoplasm of breast (principal); R92.8 Other abnormal and inconclusive findings on diagnostic imaging of breast
CPT/HCPCS: 77063; 77067

== ENCOUNTER 2024-12-08 12:57 | Outpatient (CLI) | payer MEDICARE, MEDICAID, SELFPAY ==
--- OUTSIDE RECORDS SUMMARY | 2024-12-08 13:01 | XMS_ITS | Data Portability ---
Author Organization [place] [facility] [employer] OFFICE Address [address] [place] [address] Care Team Providers Care Automobile Appraiser Name Role Phone ELIAS FIGUEROA Primary Care Provider [phone] Assessment Encounter Date Assessment Date Assessment LastModified [...] By Organization Details Last Modified Time 10/14/2022 91617 Exercise advised Low cholesterol diet advised Low sodium diet advised. dejahi Not available 10/14/2022 13:23:36 11/04/2022 81446 Low cholesterol diet advised Low sodium diet [...] Address Organization Details Recorded Time Essential hypertension 03035041 Active 2022 Denny Varg[place] null, [place] [facility] 18:31:18 Hyperlipidemia 16829792 Active 2022 D[place] [facility] 18:31:38 Diabetes mellitus 48549467 Active 2022 [place] [facility] 18:31:53 Tuberculosis 62230312 Active 2022 [place] [facility] 18:32:07 Vitamin D deficiency 35736520 Active 2022 Baldwin M[place] [facility] 3 18:32:23 Hypomagnesemia 233839299 Active 2022 [place] [facility] 3 18:32:33 Hypokalemia 04679813 Active 2022 [place] [facility] 3 18:32:43 Depressive disorder 26861980 Active 2022 [place] [facility] 18:32:50 Migraine 69837177 Active 2022 [place] [facility] 3 18:33:03 Carpal tunnel syndrome 83132183 Active 2022 [place] [facility] 18:33:16 Allergic rhinitis 14511727 Active 2022 [place] [facility] [place] 18:33:36 Gallstone 658769316 Active 2022 [place] [facility] [place] 18:33:55 Renal failure syndrome 63500241 Active 2022 [place] [facility] 18:34:09 Acute urinary tract infection 518061985 Active 2022 [place] [facility] 18:34:23 Contact dermatitis 17990871 Active 2022 [place] [facility] 18:34:38 Arthritis 7911601 Active 2022 [place] [facility] [place] 18:34:45 Swelling of knee joint 762564314 Active 2022 [place] [facility] [place] 18:35:00 Pain of shoulder region 73663656 Active 2022 [place] [facility] [place] 18:35:16 Neck pain 42116212 Active 2022 [place] [facility] [place] 18:35:26 Plantar fasciitis 196414949 Active 2022 Baldwin Mes null, [facility] [place] 18:35:43 Seizure 33679715 Active 2022 [facility], [facility] [place] 18:35:56 Obstructive sleep apnea syndrome 72612142 Active 2022 [facility] [place] 18:36:03 History of anemia vitamin B12 deficient 042951587 Active 2022 [facility] [place] 18:36:37 Diverticulosis of colon 694475849 Active 2022 [facility] [place] 18:36:57 Problem Notes None recorded. Procedures Surgical History Date Name Laterality Status Provider Name and Address Organization Details Recorded Time arthroscopic procedure completed [facility] [place] 10/08/2022 18:40:15 tonsillectomy completed [facility] [place] 10/08/2022 18:40:23 ligation of fallopian tube completed [facility] [place] 10/08/2022 18:40:33 Brain aneurysm repr simple completed [facility] [place] 10/08/2022 18:40:53 Imaging Results Imaging Date Name [...] Updated DateTime 3 170.18 cm 34.8 kg/m2 657815. 51 g 75 /min 16 /min 94 % 94 % 132 mm[Hg] 84 mm[Hg] Gilberto Carreon [facility] 3 13:13:32 Date Recorded Body height Body mass index (BMI) Body weight Heart rate Oxygen saturation Oxygen saturation in Arterial blood by Pulse oximetry Systolic blood pressure Diastolic blood pressure Provider Name and Address Organization Details Last Updated DateTime 3 170.18 cm 33.9 kg/m2 42954.1 1 g 85 /min 99 % 99 % 130 mm[Hg] 80 mm[Hg] Zuly Alexander [facility] 3 12:05:28 Social History [...] SNOMED-CT Code Diagnosis ICD10 Code Diagnosis Note [id number] Juwan Newton MD [place] OFFICE [address] [place] [address] 10/14/2022 12:43:23 10/14/2022 13:26:45 Essential hypertension 27693347 I10 with fair control Hyperlipidemia 91085452 E78.5 Needs to keep LDL less than 70, and HDL more than 40 Will get lipid profile results from PCP Electrocar diogram abnormal 364107524 R94.31 Lexiscan Myoview stress test, pt can not walk. Has known coronary artery disease, with atypical symptoms now Chronic di astolic heart failure 625978916 I50.32 Obtain echo to evaluate for structural /functiona l disease. Edema of l ower extremity 766308767 R60.0 Obtain echo to evaluate for structural /functiona l disease. Pre-surger y evaluation 216032477 Z01.818 Lexiscan Myoview stress test, pt can not walk. Has known coronary artery disease, with atypical symptoms now, the patient is not able to walk on treadmill 10863 Juwan Newton MD [place] OFFICE [address] [place] [address] 11/04/2022 11:12:20 11/04/2022 12:35:12 Dyspnea on exertion 56957402 R06.09 US, echocardio gramLV chamber size is [...] well visualized . Atypical chest pain 1025 02539 R07.89 she has a positive stress test The patient will be scheduled for left heart catheteriz ation, with coronary angiogram, and possible PTCA/Stent . The procedure was discussed with the patient, and risks, benefits, and alternativ e options were explained. The patient was given informatio n about heart catheteriz ation and interventi onal procedures . The patient agrees to proceed. Dyslipidemia 388324268 E 78.5 continue with lipitor 40 mg daily Obstructiv e sleep apnea syndrome 14423565 G47.33 she has sleep study previously but it was mild per patient Essential hypertension 37001171 I10 with fair control Pre-surger y evaluation 327010003 Z01.818 with positive stress testThe patient will be scheduled for left heart catheteriz ation, with coronary angiogram, and possible PTCA/Stent . The procedure was discussed with the patient, and risks, benefits, and alternativ e options were explained. The patient was given informatio n about heart catheteriz ation and interventi onal procedures . The patient agrees to proceed. Paroxysmal atrial fibrillation 018466385 I48.0 in sinus rhythm todayshe is not on blood thinner nor aspirin Health Concerns Section Related Observation LastModified by Organization Detai ls LastModified Time None Recorded Concern Status LastModified by Organization Details LastModified Time None Recorded Advance Directives Directive None Recorded Payers Insurance Date Sequence Insurance Name Policy Number Policy Shepard Covered Member ID Shepard Member ID Guarantor Name 11/03/2022 1 [place] Kerline Martin [id number] Kerline Martin 11/03/2022 2 [place] [facility] Kerline Martin [id number] Kerline Martin Notes Date Note Type Note [...] somnolence and AM headache. Juwan Newton MD [address] [place], [address], [place] [facility] 10/14/2022 13:24:53 11/04/2022 text/html 10/14/22CC: dysp jose [...] daytime somnolence and AM headache. BOB del ri[place], [facility] 11/04/2022 12:47:11 OBGyn Episode No OBEpisode recorded.
--- OUTSIDE RECORDS SUMMARY | 2024-12-08 13:01 | XMS_ITS | Clinical Summary ---
Author Organization [facility] [facility] Address [address] [place] [address] Care Team Providers Care Appointment Manager Name Role Phone Marcelino Gore Primary Care Provider + Allergies Active Allergy Reactions Criticality Noted Date Comments Aspartame Diarrhea Medium 07/26/2022 Morphine Other (See comments) High 09/10/2023 Pt had bad experience: Acute drug intoxication - called EMS, almost had to complete temporary HD - went to [facility] Medications acetaminophen (TYLENOL EXTRA STRENGTH) 500 mg [...] 1 tablet (5 mg total) by mouth banquet lead before breakfast 4 Active fenofibrate (TRIGLIDE) 160 mg tabletIndication s:hyperlipidemia Take 1 tablet (160 mg total) by mouth banquet lead before breakfast Active dapagliflozin propanediol (FARXIGA) 10 mg tabletIndication s:type 2 diabetes mellitus Take 1 tablet (10 mg total) by mouth banquet lead before breakfast 3 Active aspirin 81 mg chewable tabletIndication s:prevention of thrombosis Take 1 tablet (81 mg total) by mouth banquet lead before breakfast 2 Active amLODIPine (NORVASC) 10 mg tabletIndication s:hypertension Take 1 tablet (10 mg total) by mouth banquet lead before breakfast 8 Active miconazole 2 % [...] Active Problems Problem Noted Date Diagnosed Date [place]-neck deformity of left finger(s) 02/25/2024 Left radial [...] 08/09/2022 Assessment & Plan (08/13/2022 6:43 AM RIB TRIM SEPARATOR): Has erythema, warmth with more drainage. Will start on amoxicillin 500 mg b.i.d. x5 days, doxycycline 100 mg b.i.d. x5 days, started on 08/09/22. Continue pain management with Tylenol 650 Q 6. Continue wound care. Assessment & Plan (08/09/2022 6:49 PM RIB TRIM SEPARATOR): Has erythema, warmth with more drainage. Will start on amoxicillin 500 mg b.i.d. x5 days, doxycycline 100 mg b.i.d. x5 days. Continue pain management with Tylenol 650 Q 6. Continue wound care. Moderate vascular dementia w ithout behavioral disturbance, psychotic disturbance, mood disturbance, or anxiety 08/09/2022 Assessment & Plan (08/13/2022 6:45 AM RIB TRIM SEPARATOR): Patient is pleasantly confused. No behaviors. Slums 16/30. Continue Zoloft 100 mg daily. Continue supportive care. Patient need supervision and care after discharge Assessment & Plan (08/09/2022 6:58 PM RIB TRIM SEPARATOR): Patient is pleasantly confused. No behaviors. Slums 16/30. Continue Zoloft 100 mg daily. Continue supportive care. Patient need supervision and care after discharge Closed fracture of shaft of left humerus with routine healing 08/07/2022 Assessment & Plan (08/13/2022 6:42 AM RIB TRIM SEPARATOR): Due to fall. Imaging revealed left humeral shaft fracture, complicated with radial nerve palsy. Orthopedic managed conservatively with brace. SHAMIKA PRADHAN. Pain management with Tylenol 650 Q 6. Patient had follow-up with Dr. Thomas today. Recommended to continue Left arm brace, according to special instructions for placement and cleaning.Pt will be dc today to [facility]. Assessment & Plan (08/09/2022 6:51 PM RIB TRIM SEPARATOR): Pain overall controlled. Reminded patient that has follow-up with Dr. Thomas 08/11/2022. Daughter to provide transportation. Assessment & Plan (08/07/2022 6:17 AM RIB TRIM SEPARATOR): Due to fall. Imaging revealed left humeral shaft fracture, complicated with radial nerve palsy. Orthopedic managed conservatively with brace. SHAMIKA PRADHAN. Pain management with Tylenol 650 Q 6. Patient follow-up with Dr. Thomas on 08/11/22 for repeat imaging and treatment plan Paroxysmal A-fib 08/07/2022 Assessment & Plan (08/13/2022 6:43 AM RIB TRIM SEPARATOR): Patient developed paroxysmal AFib while inpatient, was started on metoprolol 25 mg b.i.d. and Eliquis 5 mg b.i.d., which later placed on hold due to GI Assessment & Plan (08/07/2022 6:18 AM RIB TRIM SEPARATOR): Patient developed paroxysmal AFib while inpatient, was started on metoprolol 25 mg b.i.d. and Eliquis 5 mg b.i.d., which later placed on hold due to GI Gastrointestinal hemorrhage with melena 08/07/19 Assessment & Plan (08/13/2022 6:46 AM RIB TRIM SEPARATOR): Patient was started on Eliquis for AFib, followed by acute blood loss anemia. Home med Plavix, Eliquis placed on hold. EGD done showed multiple gastric and duodenal ulcers. Status post blood transfusions. H pylori negative. Denies any melena or GI bleed now. Continue pantoprazole 40 mg b.i.d.. Avoid NSAIDs, AC till follow-up with GI. Assessment & Plan (08/07/2022 6:32 AM RIB TRIM SEPARATOR): Patient was started on Eliquis for AFib, [...] 08/07/2022 Assessment & Plan (08/13/2022 6:43 AM RIB TRIM SEPARATOR): 2/2 GIB (gastric, duodenal ulcers). Received blood transfusions. Hold NSAIDs, anticoagulants. CBC check a.m. Assessment & Plan (08/07/2022 6:20 AM RIB TRIM SEPARATOR): 2/2 GIB (gastric, duodenal ulcers). Received blood transfusions. Hold NSAIDs, anticoagulants. CBC check a.m. Acute kidney injury superimposed on chronic kidn ey disease 08/07/2022 Assessment & Plan (08/13/2022 6:45 AM RIB TRIM SEPARATOR): Baseline creatinine around 1. Was elevated while inpatient. Will hold chlorthalidone now, till BMP results. If creatinine elevated may consider holding lisinopril as well. Avoid nephrotoxic drugs. Monitor renal function Assessment & Plan (08/07/2022 6:30 AM RIB TRIM SEPARATOR): Baseline creatinine around 1. Was elevated while [...] 08/27/2021 Assessment & Plan (08/13/2022 6:45 AM RIB TRIM SEPARATOR): Patient currently asymptomatic. No seizure episode. Continue home med Keppra 750 mg b.i.d.. Will check Keppra level next labs. Assessment & Plan (08/07/2022 6:31 AM RIB TRIM SEPARATOR): Patient currently asymptomatic. No seizure episode. Continue home med Keppra 750 mg b.i.d.. Will check Keppra level next labs. Depressive disorder 08/27/2021 Assessment & Plan (08/13/2022 6:45 AM RIB TRIM SEPARATOR): Mood currently stable. Continue home med sertraline 100 mg daily. Assessment & Plan (08/07/2022 6:31 AM RIB TRIM SEPARATOR): Mood currently stable. Continue home med sertraline [...] 03/14/2019 Assessment & Plan (08/13/2022 6:44 AM RIB TRIM SEPARATOR): Continue Lipitor 40 mg daily, Zetia Assessment & Plan (08/07/2022 6:32 AM RIB TRIM SEPARATOR): Continue Lipitor 40 mg daily, Zetia Encounter for screening for cardiovascular disor ders 03/14/2019 Hypomagnesemia 03/14/2019 Palpitations 03/14/2019 Essential hypertension 03/08/2019 Assessment & Plan (08/13/2022 6:44 AM RIB TRIM SEPARATOR): Blood pressure and heart rate fluctuates. Continue amlodipine 10 mg, lisinopril 40 mg, metoprolol 25 mg b.i.d. added due to AFib while inpatient. Will hold down 25 mg for now due to elevated creatinine last labs. Monitor blood pressure, adjust meds accordingly. Assessment & Plan (08/07/2022 6:22 AM RIB TRIM SEPARATOR): Blood pressure and heart rate fluctuates. Continue [...] 04/28/2016 Assessment & Plan (08/13/2022 6:44 AM RIB TRIM SEPARATOR): A1c 6.6 a year ago. Continue Lantus 12 units bedtime, Tradjenta 5 mg, glipizide 5 mg. Will check A1c level next labs. Monitor Accu-Cheks Assessment & Plan (08/07/2022 6:26 AM RIB TRIM SEPARATOR): A1c 6.6 a year ago. Continue Lantus [...] on file Legal Sex Female 3:49 AM RIB TRIM SEPARATOR Gender Identity Not on file Sexual Orientation [...] testing HEMOGLOBIN A1C Routine 08/28/2021 4:53 AM RIB TRIM SEPARATOR OCCULT BLOOD, FECAL (FIT) Routine 03/18/2018 8:45 [...] BLOOD ORDERABLES Final Re sult BLAYNE VIERA [address] [facility] Department [place] [address] * (ABNORMAL) Hemoglobin A1c (08/28/2021 4:53 AM RIB TRIM SEPARATOR) Hgb A1C 6.6(H) 4.0 - 5.6 % BLAYNE Comment:Testing performed by : [facility], [address] [place] [address]., [address] Estimated Average Glucose 143 mg/dL BLAYNE Comment: The ADA recommends reporting an estimated Average Glucose (eAG) with all Hemoglobin A1c results using the equation derived from a study of 507 normal and diabetic adults. Minority populations were underrepresented and children were not included. (Diabetes Care 31:5843-0737, 2008). The eAG is not equivalent to a fasting glucose. Testing performed by: [facility], [address] [place] [address]., [id number] Blood 08/28/2021 4:53 AM RIB TRIM SEPARATOR 08/28/2021 5:00 AM RIB TRIM SEPARATOR Janet Guan DO LAB BLOOD ORDERABLES Final Re sult Performing Organization Address City/[facility]/ZIP Co de Phone Number [facility] [address] [facility] Department [place] [address] * Occult blood, fecal non neoplasm screening (03/18/2018 8:45 PM CDT) [facility] Stool Occult Blood POSITIVE NEGATIVE 03/18/2018 8:45 PM CDT 03/18/2018 10:08 PM CDT Kassandra Saab NP LAB BODY FLUIDS AND STOOLS ORDER JIM Final Result [facility] HISTORICAL RESULTS * (ABNORMAL) TNI with LIPID PANEL (11/29/2016 3:21 PM CDT) [facility] Troponin I < 0.300 0.000 - 0.300 [...] CDT 11/29/2016 3:28 PM CDT Narrative [facility] HISTORICAL RESULTS - 11/29/2016 3:54 PM CDT us Lesetr Marcelino Mccann MD LAB BLOOD ORDERABLES Final Result [facility] HISTORICAL RESULTS from Last 3 Months or Most Recently Relevant to Health Maintenance Insurance MEDICARE MEDICARE [facility] MEDICARE Advance Directives For more information, please contact: [phone] * Full Code (Latest Code Status on File) Date Activated Date Inactivated Comments 11/05/2022 11:01 AM 11/05/2022 5:09 PM Healthcare Agents on File Name Relationship Healthcare Agent [facility] Communication Prakash Olson Friend Second Alternate Health Care Agent Care Teams Appointment Manager Relationship Specialty Start Date End Date Marcelino Gore PA [address] [place] [id number] PCP - General 09/08/19
--- OUTSIDE RECORDS SUMMARY | 2024-12-08 13:01 | XMS_ITS | Encounter Summary ---
Author Organization [facility] Address [address] [place] [address] Phone Care Team Providers Care Nurse Healthcare Manager Name Role Phone Allie Sinclair Primary Care Provider [phone] Reason for Visit * Reason Comments Med Refill Encounter Details Date Type Department Care Team ([facility] Contact Info) Description 08/21/2024 Refill [facility] [address] [phone] Lizzeth Mohan NP [address] [id number] Social History Tobacco Use Types Packs/Day Years [...] Upcoming Encounters Date Type Department Care Team ([facility] Contact Info) Description 04/13/2025 1:20 PM CDT Office Visit [facility] [address] [facility] [address] [place], [place] [id number] Lizzeth Mohan NP [address] [address] documented as of this encounter Visit Diagnoses Not on filedocumented in this encounter Care Teams Nurse Healthcare Manager Relationship Specialty Start Date End Date Allie Sinclair PA [address] [place] [id number] PCP - General Family Medicine 11/08/24 documented as of this encounter
--- OUTSIDE RECORDS SUMMARY | 2024-12-08 13:01 | XMS_ITS | CONTINUITY OF CARE DOCUMENT ---
Author Name jaqueline parsons Address Unknown Organization [facility] Address [address] [address] [place] [address] Phone [phone] Care Team Providers Care Software Engineering Supervisor Name Role Phone Lc Abernathy MD Unavailable MADY MORAN Unavailable MADY MORAN Unavailable [phone] PROBLEMS Condition Status Date Provider Notes Seizure [...] Abernathy MD Hyperlipidemia active Lc Abernathy MD ENCOUNTERS Date Type Provider Location Encounter Diag nosis 9 - 9 In-person encounter Office Visit Lc Abernathy MD [place] Office 4 - 5 In-person encounter Office Visit Lc [place] [facility] 3 - 3 In-person encounter Office Visit Lc Abernathy MD [place] [facility] 6 - 6 In-person encounter Office Visit Lc Abernathy MD [place] [facility] Cardiology examinationFamily History of Hypertension:Family History [...] blood pressure, systolic 130 mm[Hg] Nadia brown [place] oxygen saturation, oximetry 97 % [facility] E&M 15 /min [facility] pulse rate 74 /min [facility] weight E&M 245 [lb_av] [facility] height E&M 67 [in_i] [facility] Body Mass Index (Ratio) 38.68 kg/m2 [place] [...] mm[Hg] Vilma Crump weight E&M 189 [lb_av] eNyda harry height E&M 67 [in_i] Neyda harry [...] Coverage type Dinesh red alliance party ID [facility] [id number] [place] MED[place]ARE PART B Medicare [id number] ADVANCE DIRECTIVES Name Date DISCUSSED - NO DECISION MADE TREATMENT PLAN Date Name Performer [id number],S, H er updated medication list for this problem includes: Ezetimibe 10 Mg Tablet (Ezetimibe) ..... Take 1 tablet once a day Atorvastatin 40 Mg Tablet (Atorvastatin) ..... Take 1 tablet once a day Lc Abernathy MD [id number],B, B P today: 130/80 P rior BP: 187/84 (09/30/2021) Her updated medication list for this problem includes: Lisinopril 20 Mg Tablet (Lisinopril) ..... Take 1 tablet by mouth once a day Metoprolol Tartrate 25 Mg Tablet (Metoprolol tartrate) ..... 1 tablet twice a day Lc Abernathy MD [id number],B, N o palps. Tele monitor showed sinus bradycardia with extra beats, no significant arrhythmias. Lc Abernathy MD [id number],S, P er PCP Her updated medication list for this problem includes: Lisinopril 20 Mg Tablet (Lisinopril) ..... Take 1 tablet by mouth once a day Glipizide 5 Mg Tablet (Glipizide) ..... Take 1 tablet once a day Januvia 100 Mg Tablet (Sitagliptin) ..... Take 1 tablet once a day Lc Abernathy MD [id number],C, N o palps. Currently on a heart monitor since being in the hospital . Lc Abernathy MD [id number],C, H ad an admission to [facility] for a grand mal seizure. Keppra was increased in the hospital. Feeling well today Lc Abernathy MD [id number],C, H er updated medication list for this problem includes: Ezetimibe 10 Mg Tablet (Ezetimibe) ..... Take 1 tablet once a day Atorvastatin 40 Mg Tablet (Atorvastatin) ..... Take 1 tablet once a day Lc Abernathy MD [id number],C,B P elevated, will increase Lisinopril to 20 [...] MD Cardiology: H ad an admission to [facility] for a grand mal seizure. Keppra was [...] a telesentry to see if I can flower picker arrhythmias. Lc Abernathy MD Cardiology [place] nt :Will restart metoprolol 25 mg twice daily. Will check an echo. B P today: 128/78 Lc Abernahty MD Date Name BASIC METABOLIC PANE L W/EGFR Holter Monitor 48 hr Complete Echo HISTORY OF PROCEDURES Procedure Date Procedure Name Provider Procedure Notes S tatus EKG Lc Abernathy MD completed
--- OUTSIDE RECORDS SUMMARY | 2024-12-08 13:01 | XMS_ITS | Clinical Summary ---
Author Organization [facility] [employer] Address [address] [place] [address] Care Team Providers Care Office Chair Assembler Name Role Phone Allie Sinclair PA-C Primary Care Provider [phone] Source Comments [facility] [employer]non-owned Affiliates and Associated Physician Practices is amultiple site organization consisting of ambulatory clinics and hospital sitesin [place], [place], [place] and [place]. This disclosure is being madepursuant to the Care Everywhere program and may not contain all information available regarding this patient. Last updated 18.[facility] [employer] Allergies Active Allergy Reactions Criticality Noted Date Comments Artificial Sweeteners Diarrhea Medium 07/26/2022 Aspartame Diarrhea Medium 07/26/2022 Morphine Other High 09/10/2023 Pt had bad experience: Acute drug intoxication - called EMS, almost had to complete temporary HD - went to [facility] Medications * Be aware that medications may not be up to date on this document. Always verify current medications with the patient. atorvastatin (Lipitor) [...] 09/10/2023 midazolam (Nayzilam) 5 MG/0.1ML nasal spray [place]ogan 0.1 mL into the nose as needed for Seizures Lasting longer than 5 minutes. Can administer second dose in other nostril if seizure continues after 10 minutes. 4 Each 5 09/04/19 Active Additional Information Patient not taking.Reported on 11/07/2022 Cholecalciferol 1.25 MG (37626 UT) cholecalciferol (vitamin D3) 1,250 mcg (50,000 unit) capsule TAKE 1 CAPSULE BY MOUTH EVERY WEEK WITH FOOD Active saline nasal spray (Oreana; Baby [place]) 0.65 % nasal spray [place]ogan 1 (one) spray to 2 (two) sprays [...] 07/07/20 23 Active Blood Glucose Monitoring Suppl (TeamSnap Verio Flex System) w/Device KIT USE TO CHECK BLOOD SUGAR THREE TIMES DAILY 05/04/20 23 Active amLODIPine (Norvasc) 10 MG tablet Take 1 (one) tablet by mouth every morning 07/21/19 24 Active fenofibrate (Lofibra) 160 MG tablet TAKE 1 TABLET BY MOUTH EVERY DAY WITH MEALS 08/17/19 24 Active TeamSnap Verio test strip USE TO CHECK BLOOD SUGAR TWICE DAILY 05/05/20 23 Active Lancets (TelemetryWebTOUCH DELICA PLUS 33G EXTRA FINE LANCET) USE [...] will be dc today to [facility]. 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 Not hard at all 11/29/2022 [facility] [place] [facility] - Occupational Stress [...] place to sleep or slept in a assisted (including now)? No 11/29/2022 Comments No Sex and Gender Information Value Date Recorded Sex Assigned at Not on file Legal Sex Female 6:40 AM SUPERVISOR BINDERY Gender Identity Not on file Sexual Orientation Not on file Last Filed Vital Signs Vital Sign Reading Time Taken Comments Blood Pressure 123/68 09/17/2023 3:50 PM SUPERVISOR BINDERY Pulse 68 09/17/2023 3:50 PM SUPERVISOR BINDERY Temperature 36.5 C (97.7 F) 09/17/2023 3:27 PM SUPERVISOR BINDERY Respiratory Rate 13 09/17/2023 3:50 PM SUPERVISOR BINDERY Oxygen Saturation 98% 09/17/2023 3:50 PM SUPERVISOR BINDERY Inhaled Oxygen Concentration 25% 07/23/2022 1 0:00 AM SUPERVISOR BINDERY Weight 90.9 kg (200 lb 6.4 oz) 09/17/2023 12:34 PM SUPERVISOR BINDERY Height 170.2 cm (5' 7 ) 09/17/2023 12:34 PM SUPERVISOR BINDERY Body Mass Index 31.39 09/17/2023 12:34 PM SUPERVISOR BINDERY Plan of Treatment Health Maintenance Due Date [...] this topic Medical Devices Implanted Type Area Wheel Alignment Mechanic Device Identifier Shelf Expiration Date Model / Serial / Lot Parth Bone Void 5cc Dbm Allosync Ptty Implanted:Qty: 2 on 11/25/2022 by Robbie Mccann MD at [facility] Left: Humerus [employer] 04/23/2026 / / Screw 3.5mm 32mm T15 Slf-Tap Lck Tpr Implanted:Qty: 1 on 11/25/2022 by Robbie Mccann MD at [facility] Left: Humerus [employer] [id number] / / Screw 3.5mm 36mm T15 Slf-Tap Lck Tpr Implanted:Qty: 1 on 11/25/2022 by Robbie Mccann MD at [facility] Left: Humerus [employer] [id number] / / Screw 3.5mm 38mm T15 Slf-Tap Lck Tpr Implanted:Qty: 1 on 11/25/2022 by Robbie Mccann MD at [facility] Left: Humerus [employer] [id number] / / Screw 3.5mm 42mm T15 Lck Slf-Tap Tip Tpr Implanted:Qty: 1 on 11/25/2022 by Robbie Mccann MD at [facility] Left: Humerus [employer] [id number] / / Screw 3.5mm 46mm T15 Slf-Tap Lck Tpr Implanted:Qty: 1 on 11/25/2022 by Robbie Mccann MD at [facility] Left: Humerus [employer] [id number] / / Screw 3.5mm 48mm T15 Slf-Tap Lck Tpr Implanted:Qty: 1 on 11/25/2022 by Robbie Mccann MD at [facility] Left: Humerus [employer] [id number] / / Screw 3.5mm 46mm T15 Lck Mldir Nonster Implanted:Qty: 1 on 11/25/2022 by Robbie Mccann MD at [facility] Left: Humerus [employer] [id number] / / Graft Bone Infs Rhbmp-2 Bvn Clgn Lg 8ml Implanted:Qty: 1 on 11/25/2022 by Robbie Mccann MD at [facility] Left: Humerus [employer] 07/20/2024 [id number] / / [id number] Graft Bone Almtr Dbm Canc 5ml Algrf Ptty - [id number] Implanted:Qty: 1 on 11/25/2022 by Robbie Mccann MD at [facility] Left: Humerus [employer] 09/22/2023 [id number] / [id number] / Alps Proximal Humerus Low Plate Left 11 H, 190mm Implanted:Qty: 1 on 11/25/2022 by Robbie Mccann MD at [facility] Left: Humerus [id number] / / Screw 3.5mm 20mm T15 Lopro Nonlock Implanted:Qty: 3 on 11/25/2022 by Robbie Mccann MD at [facility] Left: Humerus [employer] [id number] / / Screw 3.5mm 22mm T15 Nonlock Lopro Implanted:Qty: 1 on 11/25/2022 by Robbie Mccann MD at [facility] Left: Humerus [employer] [id number] / / Screw 3.5mm 24mm T15 Nonlock Lopro Implanted:Qty: 1 on 11/25/2022 by Robbie Mccann MD at [facility] Left: Humerus [employer] [id number] / / Screw 3.5mm 32mm T15 Nonlock Lopro Implanted:Qty: 1 on 11/25/2022 by Robbie Mccann MD at [facility] Left: Humerus [employer] [id number] / / Explanted Type Area Wheel Alignment Mechanic Device Identifier Shelf Expiration Date Model / Serial / Lot Screw 3.5mm 36mm T15 Slf-Tap Lck Tpr Explanted:Qty: 1 on 11/25/2022 by Robbie Mccann MD at [facility] Left: Humerus [employer] [id number] / / Screw 3.5mm 48mm T15 Slf-Tap Lck Tpr Explanted:Qty: 2 on 11/25/2022 by Robbie Mccann MD at [facility] Left: Humerus [employer] [id number] / / Wire K 2mm 152mm Top Tray Ss Fx Explanted:Qty: 4 on 11/25/2022 by Robbie Mccann MD at [facility] Left: Humerus [employer] [id number] / / Screw 3.5mm 24mm T15 Nonlock Lopro Explanted:Qty: 1 on 11/25/2022 by Robbie Mccann MD at [facility] Left: Humerus [employer] [id number] / / Procedures Procedure Name Priority Date/Time Associated Diagnosis Comments RENAL FUNCTION PANEL AM Draw 12/04/2022 2:46 AM CDT HEMOGLOBIN A1C Routine 11/26/2022 1:18 AM CDT Other fracture of shaft of left humerus, subsequent encounter for fracture with malunion HEPATITIS SCREEN ACUTE AM Draw 07/24/2022 4:12 AM SUPERVISOR BINDERY from Last 3 Months or Most Recently Relevant to Health Maintenance Results * (ABNORMAL) RENAL FUNCTION PANEL (12/04/2022 2:46 AM CDT) BUN 7 7 - 26 mg/dL 12/04/2022 4:03 AM [facility] Creatinine 0.98(H) 0.56 - 0.96 mg/dL 12/04/2022 4:03 AM [facility] Sodium 149(H) 136 - 145 mmol/L 12/04/2022 4:03 AM [facility] Potassium 4.4 3.5 - 4.5 mmol/L 12/04/2022 4:03 AM [facility] Chloride 112(H) 98 - 107 mmol/L 12/04/2022 4:03 AM [facility] CO2 18(L) 22 - 29 mmol/L 12/04/2022 4:03 AM [facility] Glucose 155(H) 70 - 115 mg/dL 12/04/2022 4:03 AM [facility] Albumin 2.6(L) 3.4 - 5.0 g/dL 12/04/2022 4:03 AM [facility] Calcium 9.0 8.4 - 10.2 mg/dL 12/04/2022 4:03 AM [facility] Phosphorus 3.7 2.9 - 5.1 mg/dL 12/04/2022 4:03 AM [facility] Anion Gap 23(H) 8 - 18 12/04/2022 4:03 AM CDT [facility] BUN/Creatinine Ratio 7 7 - 23 12/04/2022 4:03 AM T [facility] Osmolality Calculated 309(H) 270 - 300 mOsm/kg 12/04/2022 4:03 AM [facility] eGFR by CKD-EPI 63(L) >=90 mL/min/1.7 3 m2 12/04/2022 4:03 AM [facility] Blood BLOOD SPECIMEN / Unknown Lab Venipuncture / Unknown 12/04/2022 2:46 AM CDT 12/04/2022 3:24 AM CDT Blaine Campo MD LAB - CHEMISTRY ORDERABLES Final Result [facility] [address] [place] [address], [facility] [phone] * (ABNORMAL) HEMOGLOBIN A1C (11/26/2022 1:18 AM CDT) Hemoglobin A1c 9.1(H) <=5.6 % 11/26/2022 1:26 PM [facility] Estimated Average Glucose 214 mg/dL 11/26/2022 1:26 PM [facility] Comment: HbA1c Interpretation: Normal : < 5.7% Pre-diabetes: 5.7-6.4% Diabetes: Equal to or greater than 6.5% Test results diagnostic of diabetes should be repeated for confirmation. Treatment target values recommended by ADA and other clinical organizations should be used to evaluate metabolic control in patients. Reference: [place] Diabetes Association, Standards of Care in Diabetes [...] ORDERABLES Mary l Result Performing Organization Address City/[facility]/ZIP Co de Phone Number [facility] [address] [place] [address], [place] [phone] * HEPATITIS SCREEN ACUTE (07/24/2022 4:12 AM SUPERVISOR BINDERY) Hepatitis A Virus Antibody IgM Non-react bartolome Non-reac tive 07/24/2022 5:11 AM SUPERVISOR BINDERY [facility] Hepatitis B Virus Surface Antigen Non-react bartolome Non-reac tive 07/24/2022 5:11 AM SUPERVISOR BINDERY [facility] Hepatitis B Core Virus Antibody IgM Non-react bartolome Non-reac tive 07/24/2022 5:11 AM SUPERVISOR BINDERY [facility] Hepatitis C Antibody Non-react bartolome Non-reac tive 07/24/2022 5:11 AM [facility] Comment:Hepatitis C Antibody screen indicates no serologic evidence of past or current infection with Hepatitis C Virus. Patients with unexplained liver disease who are immunocompromised or suspected of having acute Hepatitis C infection may benefit from Nucleic Acid Test (CHA) for Hepatitis C Viral RNA to confirm Hepatitis C status. Blood BLOOD SPECIMEN / Unknown Venipuncture / Unknown 07/24/2022 4:12 AM SUPERVISOR BINDERY 07/24/2022 4:37 AM [facility] Sarabjit Gutierrez MD LAB - CHEMISTRY ORDERAB LES Final Result Performing Organization Address [facility]/ZIP Co de Phone Number [facility] [address] [place] [address], [facility] [phone] from Last 3 Months or Most Recently Relevant to Health Maintenance Insurance MEDICARE MEDICAID - [place] MEDICAID [facility] MEDICARE Advance Directives Documents on File Type Date Recorded Patient E Marketing Specialist Expl anation Adv Directive/Living Will/POA 08/01/2022 [...] Relationship Healthcare Agent Relationshi p Communication Claudia Martin Daughter Health Care Agent Care Teams Office Chair Assembler Relationship Specialty Start Date End Date Allie Sinclair PA-C [address] [place] [phone] PCP - General 07/08/22
--- OUTSIDE RECORDS SUMMARY | 2024-12-08 13:01 | XMS_ITS | Clinical Summary ---
Author Organization [facility] Address [address] [place] [address] Phone Care Team Providers Care Blood Bank Laboratory Technologist Name Role Phone Allie Sinclair Primary Care Provider [phone] Allergies No known active allergies Medications atorvastatin (LIPITOR) 40 MG tablet Onee tablet at bedtime 0 04/28/20 16 Active acetaminophen (TYLENOL) 325 MG tablet Take 2 tablets by mouth in the morning and 2 tablets in the evening. Active metoprolol tartrate (LOPRESSOR) 25 MG tablet Take 25 mg by mouth every 12 (twelve) hours Active Cholecalcifero l (Vitamin D3) 1.25 MG (26462 UT) capsule Take 50,000 Units by mouth [...] on file Legal Sex Female 7:35 AM [facility] Gender Identity Not on file Sexual [...] 11/10/2024 1:21 PM CDT Plan of Treatment Upcoming Encounters Date Type Department Care Team (Late st Contact Info) Description 04/13/2025 1:20 PM CDT Office Visit [facility] [address] [facility] [facility] [address] [place] [address] Lizzeth Mohan NP [address] [facility] [address] [place] [address] Health Maintenance Due Date Last Done Comments Diabetic Foot Exam 01/14/1964 Ophthalmology Exam 01/14/1964 Pneumococcal PPSV23/PCV13 65 + Years / High and Highest Risk (1 of 5 - PCV) 1973 Influenza Vaccine (Season Ended) 2025 05/04/2023, 05/10/2021, 05/17/2019, Additional history exists Insurance MEDICARE [facility] MEDICARE Care Teams Blood Bank Laboratory Technologist Relationship Specialty Start Date End Date Allie Sinclair PA [address] [place] [phone] PCP - General Family Medicine 11/08/24
--- OUTSIDE RECORDS SUMMARY | 2024-12-08 13:01 | XMS_ITS | Referral Summary ---
Author Organization [facility] [employer] [place] Address [address] [place] [phone] Care Team Providers Care Pharmacist Name Role Phone Marcelino Gore Primary Care Provider + Allergies Active Allergy Reactions Criticality Noted Date Comments Aspartame Diarrhea Medium 07/26/2022 Morphine Other (See comments) High 09/10/2023 Pt had bad experience: Acute drug intoxication - called EMS, almost had to complete temporary HD - went to [facility] Medications acetaminophen (TYLENOL EXTRA STRENGTH) 500 [...] 1 tablet (5 mg total) by mouth early childhood education coordinator before breakfast 4 Active fenofibrate (TRIGLIDE) 160 mg tabletIndication s:hyperlipidemia Take 1 tablet (160 mg total) by mouth early childhood education coordinator before breakfast Active dapagliflozin propanediol (FARXIGA) 10 mg tabletIndication s:type 2 diabetes mellitus Take 1 tablet (10 mg total) by mouth early childhood education coordinator before breakfast 3 Active aspirin 81 mg chewable tabletIndication s:prevention of thrombosis Take 1 tablet (81 mg total) by mouth early childhood education coordinator before breakfast 2 Active amLODIPine (NORVASC) 10 mg tabletIndication s:hypertension Take 1 tablet (10 mg total) by mouth early childhood education coordinator before breakfast 8 Active miconazole 2 % [...] Active Problems Problem Noted Date Diagnosed Date 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 Will start on amoxicillin 500 mg b.i.d. x5 days, doxycycline 100 mg b.i.d. x5 days, started on 08/09/22. Continue pain management with Tylenol 650 Q 6. Continue wound care. Assessment & Plan (08/09/2022 6:49 PM HOSPITAL HOUSEKEEPER): Has erythema, warmth with more drainage. Will start on amoxicillin 500 mg b.i.d. x5 days, doxycycline 100 mg b.i.d. x5 days. Continue pain management with Tylenol 650 Q 6. Continue wound care. Moderate vascular dementia w ithout behavioral disturbance, psychotic disturbance, mood disturbance, or anxiety 08/09/2022 Assessment & Plan (08/13/2022 6:45 AM HOSPITAL HOUSEKEEPER): Patient is pleasantly confused. No behaviors. Slums 16/30. Continue Zoloft 100 mg daily. Continue supportive care. Patient need supervision and care after discharge Assessment & Plan (08/09/2022 6:58 PM HOSPITAL HOUSEKEEPER): Patient is pleasantly confused. No behaviors. Slums 16/30. Continue Zoloft 100 mg daily. Continue supportive care. Patient need supervision and care after discharge Closed fracture of shaft of left humerus with routine healing 08/07/2022 Assessment & Plan (08/13/2022 6:42 AM HOSPITAL HOUSEKEEPER): Due to fall. Imaging revealed left humeral shaft fracture, complicated with radial nerve palsy. Orthopedic managed conservatively with brace. SHAMIKA PRADHAN. Pain management with Tylenol 650 Q 6. Patient had follow-up with Dr. Thomas today. Recommended to continue Left arm brace, according to special instructions for placement and cleaning.Pt will be dc today to [facility]. Assessment & Plan (08/09/2022 6:51 PM HOSPITAL HOUSEKEEPER): Pain overall controlled. Reminded patient that has follow-up with Dr. Thomas 08/11/2022. Daughter to provide transportation. Assessment & Plan (08/07/2022 6:17 AM HOSPITAL HOUSEKEEPER): Due to fall. Imaging revealed left humeral shaft fracture, complicated with radial nerve palsy. Orthopedic managed conservatively with brace. SHAMIKA PRADHAN. Pain management with Tylenol 650 Q 6. Patient follow-up with Dr. Thomas on 08/11/22 for repeat imaging and treatment plan Paroxysmal A-fib 08/07/2022 Assessment & Plan (08/13/2022 6:43 AM HOSPITAL HOUSEKEEPER): Patient developed paroxysmal AFib while inpatient, was started on metoprolol 25 mg b.i.d. and Eliquis 5 mg b.i.d., which later placed on hold due to GI Assessment & Plan (08/07/2022 6:18 AM HOSPITAL HOUSEKEEPER): Patient developed paroxysmal AFib while inpatient, was started on metoprolol 25 mg b.i.d. and Eliquis 5 mg b.i.d., which later placed on hold due to GI Gastrointestinal hemorrhage with melena 08/07/19 Assessment & Plan (08/13/2022 6:46 AM HOSPITAL HOUSEKEEPER): Patient was started on Eliquis for AFib, followed by acute blood loss anemia. Home med Plavix, Eliquis placed on hold. EGD done showed multiple gastric and duodenal ulcers. Status post blood transfusions. H pylori negative. Denies any melena or GI bleed now. Continue pantoprazole 40 mg b.i.d.. Avoid NSAIDs, AC till follow-up with GI. Assessment & Plan (08/07/2022 6:32 AM HOSPITAL HOUSEKEEPER): Patient was started on Eliquis for AFib, [...] 08/07/2022 Assessment & Plan (08/13/2022 6:43 AM HOSPITAL HOUSEKEEPER): 2/2 GIB (gastric, duodenal ulcers). Received blood transfusions. Hold NSAIDs, anticoagulants. CBC check a.m. Assessment & Plan (08/07/2022 6:20 AM HOSPITAL HOUSEKEEPER): 2/2 GIB (gastric, duodenal ulcers). Received blood transfusions. Hold NSAIDs, anticoagulants. CBC check a.m. Acute kidney injury superimposed on chronic kidn ey disease 08/07/2022 Assessment & Plan (08/13/2022 6:45 AM HOSPITAL HOUSEKEEPER): Baseline creatinine around 1. Was elevated while inpatient. Will hold chlorthalidone now, till BMP results. If creatinine elevated may consider holding lisinopril as well. Avoid nephrotoxic drugs. Monitor renal function Assessment & Plan (08/07/2022 6:30 AM HOSPITAL HOUSEKEEPER): Baseline creatinine around 1. Was elevated while [...] 08/27/2021 Assessment & Plan (08/13/2022 6:45 AM HOSPITAL HOUSEKEEPER): Patient currently asymptomatic. No seizure episode. Continue home med Keppra 750 mg b.i.d.. Will check Keppra level next labs. Assessment & Plan (08/07/2022 6:31 AM HOSPITAL HOUSEKEEPER): Patient currently asymptomatic. No seizure episode. Continue home med Keppra 750 mg b.i.d.. Will check Keppra level next labs. Depressive disorder 08/27/2021 Assessment & Plan (08/13/2022 6:45 AM HOSPITAL HOUSEKEEPER): Mood currently stable. Continue home med sertraline 100 mg daily. Assessment & Plan (08/07/2022 6:31 AM HOSPITAL HOUSEKEEPER): Mood currently stable. Continue home med sertraline [...] 03/14/2019 Assessment & Plan (08/13/2022 6:44 AM HOSPITAL HOUSEKEEPER): Continue Lipitor 40 mg daily, Zetia Assessment & Plan (08/07/2022 6:32 AM HOSPITAL HOUSEKEEPER): Continue Lipitor 40 mg daily, Zetia Encounter for screening for cardiovascular disor ders 03/14/2019 Hypomagnesemia 03/14/2019 Palpitations 03/14/2019 Essential hypertension 03/08/2019 Assessment & Plan (08/13/2022 6:44 AM HOSPITAL HOUSEKEEPER): Blood pressure and heart rate fluctuates. Continue amlodipine 10 mg, lisinopril 40 mg, metoprolol 25 mg b.i.d. added due to AFib while inpatient. Will hold down 25 mg for now due to elevated creatinine last labs. Monitor blood pressure, adjust meds accordingly. Assessment & Plan (08/07/2022 6:22 AM HOSPITAL HOUSEKEEPER): Blood pressure and heart rate fluctuates. Continue [...] 04/28/2016 Assessment & Plan (08/13/2022 6:44 AM HOSPITAL HOUSEKEEPER): A1c 6.6 a year ago. Continue Lantus 12 units bedtime, Tradjenta 5 mg, glipizide 5 mg. Will check A1c level next labs. Monitor Accu-Cheks Assessment & Plan (08/07/2022 6:26 AM HOSPITAL HOUSEKEEPER): A1c 6.6 a year ago. Continue Lantus [...] on file Legal Sex Female 3:49 AM HOSPITAL HOUSEKEEPER Gender Identity Not on file Sexual Orientation [...] testing HEMOGLOBIN A1C Routine 08/28/2021 4:53 AM HOSPITAL HOUSEKEEPER OCCULT BLOOD, FECAL (FIT) Routine 03/18/2018 8:45 [...] BLOOD ORDERABLES Final Re sult [facility] [address] [facility] [place] [address] * (ABNORMAL) Hemoglobin A1c (08/28/2021 4:53 AM HOSPITAL HOUSEKEEPER) [facility] Hgb A1C 6.6(H) 4.0 - 5.6 % [facility] Comment:Testing performed by : [address] [address] Estimated Average Glucose 143 mg/dL [facility] Comment: The ADA recommends reporting an estimated Average Glucose (eAG) with all Hemoglobin A1c results using the equation derived from a study of 507 normal and diabetic adults. Minority populations were underrepresented and children were not included. (Diabetes Care 31:5426-4647, 2008). The eAG is not equivalent to a fasting glucose. Testing performed by: [facility], [address] [place] [address]., [address] Blood 08/28/2021 4:53 AM HOSPITAL HOUSEKEEPER 08/28/2021 5:00 AM HOSPITAL HOUSEKEEPER Janet Guan DO LAB BLOOD ORDERABLES Final Re sult [facility] [address] [facility] [place] [address] * Occult blood, fecal non neoplasm screening (03/18/2018 8:45 PM CDT) [facility] Stool Occult Blood POSITIVE NEGATIVE 03/18/2018 8:45 PM CDT 03/18/2018 10:08 PM CDT Kassandra Saab NP LAB BODY FLUIDS AND STOOLS ORDER JIM Final Result [facility] HISTORICAL RESULTS * (ABNORMAL) TNI with LIPID PANEL (11/29/2016 3:21 PM CDT) [facility] Troponin I < 0.300 0.000 - 0.300 [...] - 130 mg/dL 11/29/2016 3:54 PM CDT [facility] HISTORICAL RESULTS Comment:High Risk > 159 mg/d [...] Most Recently Relevant to Health Maintenance Insurance [facility] MEDICARE MEDICARE [place] MEDICARE Advance Directives For more information, please contact: [phone] * Full Code (Latest Code Status on File) Date Activated Date Inactivated Comments 11/05/2022 11:01 AM 11/05/2022 5:09 PM Healthcare Agents on File Name Relationship Healthcare Agent Relationsma p Communication Prakash Olson Friend Second Alternate Health Care Agent Care Teams Pharmacist Relationship Specialty Start Date End Date Marcelino Gore PA [address] [place] [id number] PCP - General 09/08/19
== END 2024-12-08 12:58 | disposition home or self-care (01) ==
LOC: ANHAUDIO 12:58
PROVIDERS: PCP Physician Assistant; Visit Provider Physician Assistant
DX: H91.90 Unspecified hearing loss, unspecified ear (principal)
CPT/HCPCS: 99199

== ENCOUNTER 2024-12-28 12:50 | Outpatient (CLI) | payer MEDICARE, MEDICAID, SELFPAY ==
--- OUTSIDE RECORDS SUMMARY | 2024-12-28 14:48 | XMS_ITS | Clinical Summary ---
Author Organization [address] [facility] [place] Address [address] [place] [address] Care Team Providers Care Plasterer Foreman Name Role Phone Marcelino Gore Primary Care Provider + Allergies Active Allergy Reactions Criticality Noted Date Comments Aspartame Diarrhea Medium 07/26/2022 Morphine Other (See comments) High 09/10/2023 Pt had bad experience: Acute drug intoxication - called EMS, almost had to complete temporary HD - went to [facility] Medications acetaminophen (TYLENOL EXTRA STRENGTH) [...] 1 tablet (5 mg total) by mouth home child care provider before breakfast 4 Active fenofibrate (TRIGLIDE) 160 mg tabletIndication s:hyperlipidemia Take 1 tablet (160 mg total) by mouth home child care provider before breakfast Active dapagliflozin propanediol (FARXIGA) 10 mg tabletIndication s:type 2 diabetes mellitus Take 1 tablet (10 mg total) by mouth home child care provider before breakfast 3 Active aspirin 81 mg chewable tabletIndication s:prevention of thrombosis Take 1 tablet (81 mg total) by mouth home child care provider before breakfast 2 Active amLODIPine (NORVASC) 10 mg tabletIndication s:hypertension Take 1 tablet (10 mg total) by mouth home child care provider before breakfast 8 Active miconazole 2 % [...] Active Problems Problem Noted Date Diagnosed Date 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 Will start on amoxicillin 500 mg b.i.d. x5 days, doxycycline 100 mg b.i.d. x5 days, started on 08/09/22. Continue pain management with Tylenol 650 Q 6. Continue wound care. Assessment & Plan (08/09/2022 6:49 PM AERODYNAMICS ENGINEER): Has erythema, warmth with more drainage. Will start on amoxicillin 500 mg b.i.d. x5 days, doxycycline 100 mg b.i.d. x5 days. Continue pain management with Tylenol 650 Q 6. Continue wound care. Moderate vascular dementia w ithout behavioral disturbance, psychotic disturbance, mood disturbance, or anxiety 08/09/2022 Assessment & Plan (08/13/2022 6:45 AM AERODYNAMICS ENGINEER): Patient is pleasantly confused. No behaviors. Slums 16/30. Continue Zoloft 100 mg daily. Continue supportive care. Patient need supervision and care after discharge Assessment & Plan (08/09/2022 6:58 PM AERODYNAMICS ENGINEER): Patient is pleasantly confused. No behaviors. Slums 16/30. Continue Zoloft 100 mg daily. Continue supportive care. Patient need supervision and care after discharge Closed fracture of shaft of left humerus with routine healing 08/07/2022 Assessment & Plan (08/13/2022 6:42 AM AERODYNAMICS ENGINEER): Due to fall. Imaging revealed left humeral shaft fracture, complicated with radial nerve palsy. Orthopedic managed conservatively with brace. SHAMIKA PRADHAN. Pain management with Tylenol 650 Q 6. Patient had follow-up with Dr. Thomas today. Recommended to continue Left arm brace, according to special instructions for placement and cleaning.Pt will be dc today to [facility]. Assessment & Plan (08/09/2022 6:51 PM AERODYNAMICS ENGINEER): Pain overall controlled. Reminded patient that has follow-up with Dr. Thomas 08/11/2022. Daughter to provide transportation. Assessment & Plan (08/07/2022 6:17 AM AERODYNAMICS ENGINEER): Due to fall. Imaging revealed left humeral shaft fracture, complicated with radial nerve palsy. Orthopedic managed conservatively with brace. SHAMIKA PRADHAN. Pain management with Tylenol 650 Q 6. Patient follow-up with Dr. Thomas on 08/11/22 for repeat imaging and treatment plan Paroxysmal A-fib 08/07/2022 Assessment & Plan (08/13/2022 6:43 AM AERODYNAMICS ENGINEER): Patient developed paroxysmal AFib while inpatient, was started on metoprolol 25 mg b.i.d. and Eliquis 5 mg b.i.d., which later placed on hold due to GI Assessment & Plan (08/07/2022 6:18 AM AERODYNAMICS ENGINEER): Patient developed paroxysmal AFib while inpatient, was started on metoprolol 25 mg b.i.d. and Eliquis 5 mg b.i.d., which later placed on hold due to GI Gastrointestinal hemorrhage with melena 08/07/19 Assessment & Plan (08/13/2022 6:46 AM AERODYNAMICS ENGINEER): Patient was started on Eliquis for AFib, followed by acute blood loss anemia. Home med Plavix, Eliquis placed on hold. EGD done showed multiple gastric and duodenal ulcers. Status post blood transfusions. H pylori negative. Denies any melena or GI bleed now. Continue pantoprazole 40 mg b.i.d.. Avoid NSAIDs, AC till follow-up with GI. Assessment & Plan (08/07/2022 6:32 AM AERODYNAMICS ENGINEER): Patient was started on Eliquis for AFib, [...] 08/07/2022 Assessment & Plan (08/13/2022 6:43 AM AERODYNAMICS ENGINEER): 2/2 GIB (gastric, duodenal ulcers). Received blood transfusions. Hold NSAIDs, anticoagulants. CBC check a.m. Assessment & Plan (08/07/2022 6:20 AM AERODYNAMICS ENGINEER): 2/2 GIB (gastric, duodenal ulcers). Received blood transfusions. Hold NSAIDs, anticoagulants. CBC check a.m. Acute kidney injury superimposed on chronic kidn ey disease 08/07/2022 Assessment & Plan (08/13/2022 6:45 AM AERODYNAMICS ENGINEER): Baseline creatinine around 1. Was elevated while inpatient. Will hold chlorthalidone now, till BMP results. If creatinine elevated may consider holding lisinopril as well. Avoid nephrotoxic drugs. Monitor renal function Assessment & Plan (08/07/2022 6:30 AM AERODYNAMICS ENGINEER): Baseline creatinine around 1. Was elevated while [...] 08/27/2021 Assessment & Plan (08/13/2022 6:45 AM AERODYNAMICS ENGINEER): Patient currently asymptomatic. No seizure episode. Continue home med Keppra 750 mg b.i.d.. Will check Keppra level next labs. Assessment & Plan (08/07/2022 6:31 AM AERODYNAMICS ENGINEER): Patient currently asymptomatic. No seizure episode. Continue home med Keppra 750 mg b.i.d.. Will check Keppra level next labs. Depressive disorder 08/27/2021 Assessment & Plan (08/13/2022 6:45 AM AERODYNAMICS ENGINEER): Mood currently stable. Continue home med sertraline 100 mg daily. Assessment & Plan (08/07/2022 6:31 AM AERODYNAMICS ENGINEER): Mood currently stable. Continue home med sertraline [...] 03/14/2019 Assessment & Plan (08/13/2022 6:44 AM AERODYNAMICS ENGINEER): Continue Lipitor 40 mg daily, Zetia Assessment & Plan (08/07/2022 6:32 AM AERODYNAMICS ENGINEER): Continue Lipitor 40 mg daily, Zetia Encounter for screening for cardiovascular disor ders 03/14/2019 Hypomagnesemia 03/14/2019 Palpitations 03/14/2019 Essential hypertension 03/08/2019 Assessment & Plan (08/13/2022 6:44 AM AERODYNAMICS ENGINEER): Blood pressure and heart rate fluctuates. Continue amlodipine 10 mg, lisinopril 40 mg, metoprolol 25 mg b.i.d. added due to AFib while inpatient. Will hold down 25 mg for now due to elevated creatinine last labs. Monitor blood pressure, adjust meds accordingly. Assessment & Plan (08/07/2022 6:22 AM AERODYNAMICS ENGINEER): Blood pressure and heart rate fluctuates. Continue [...] 04/28/2016 Assessment & Plan (08/13/2022 6:44 AM AERODYNAMICS ENGINEER): A1c 6.6 a year ago. Continue Lantus 12 units bedtime, Tradjenta 5 mg, glipizide 5 mg. Will check A1c level next labs. Monitor Accu-Cheks Assessment & Plan (08/07/2022 6:26 AM AERODYNAMICS ENGINEER): A1c 6.6 a year ago. Continue Lantus [...] on file Legal Sex Female 3:49 AM AERODYNAMICS ENGINEER Gender Identity Not on file Sexual Orientation [...] 10:00 AM CDT Height 170.2 cm (5' 7) 03/09/2024 10:00 AM CDT Body Mass Index [...] 11/06/2023 11/05/2022, 07/20, 08/28/2021, Additional history exists Fall Risk Assessment 03/09/2025 03/09/2024 Influenza Vaccine (Season Ended) 2025 05/04/2023, 05/10/2021, 05/10/2021, Additional history exists DTaP/Tdap/Td Vaccine (2 - Td or Tdap) 04/01/2032 04/01/2022 Colon Cancer Screening-FIT Discontinued 03/18/2018 Procedures Procedure Name Priority Date/Time Associated Diagnosis Comments EGFR STAT 11/05/2022 7:36 AM CDT Preop testing HEMOGLOBIN A1C Routine 08/28/2021 4:53 AM AERODYNAMICS ENGINEER OCCULT BLOOD, FECAL (FIT) Routine 03/18/2018 8:45 [...] BLOOD ORDERABLES Final Re sult BLAYNE VIERA [address] [facility] [place] [address] * (ABNORMAL) Hemoglobin A1c (08/28/2021 4:53 AM AERODYNAMICS ENGINEER) Hgb A1C 6.6(H) 4.0 - 5.6 % BLAYNE Comment:Testing performed by : [facility], [address] [place] [address]., [id number] Estimated Average Glucose 143 mg/dL BLAYNE Comment: The ADA recommends reporting an estimated Average Glucose (eAG) with all Hemoglobin A1c results using the equation derived from a study of 507 normal and diabetic adults. Minority populations were underrepresented and children were not included. (Diabetes Care 31:1524-3938, 2008). The eAG is not equivalent to a fasting glucose. Testing performed by: [facility], [address] [place] [address]., [id number] Blood 08/28/2021 4:53 AM AERODYNAMICS ENGINEER 08/28/2021 5:00 AM AERODYNAMICS ENGINEER Janet Guan DO LAB BLOOD ORDERABLES Final Re sult Performing Organization Address City/[facility]/ZIP Co de Phone Number [facility] [address] [facility] [place] [address] * Occult blood, fecal non neoplasm screening (03/18/2018 8:45 PM CDT) [facility] Stool Occult Blood POSITIVE NEGATIVE 03/18/2018 8:4 5 PM CDT 03/18/2018 10:08 PM CDT Kassandra Saab NP LAB BODY FLUIDS AND STOOLS ORDER JIM Final Result [facility] HISTORICAL RESULTS * (ABNORMAL) TNI with LIPID PANEL (11/29/2016 3:21 PM CDT) [facility] Troponin I < 0.300 0.000 [...] PM CDT 11/29/2016 3:28 PM CDT Narrative [facility] HISTORICAL RESULTS - 11/29/2016 3:54 PM CDT us Lester Marcelino Mccann MD LAB BLOOD ORDERABLES Final Result [facility] HISTORICAL RESULTS from Last 3 Months or Most Recently Relevant to Health Maintenance Insurance MEDICARE MEDICARE IDMI IDMI MEDICARE Advance Directives For more information, please contact: [phone] * Full Code (Latest Code Status on File) Date Activated Date Inactivated Comments 11/05/2022 11:01 AM 11/05/2022 5:09 PM Healthcare Agents on File Name Relationship Healthcare Agent [facility] Communication Prakash Olson Friend Second Alternate Health Care Agent Care Teams Plasterer Foreman Relationship Specialty Start Date End Date Marcelino Gore PA [address] [place] [id number] PCP - General 09/08/19
--- OUTSIDE RECORDS SUMMARY | 2024-12-28 14:48 | XMS_ITS | Encounter Summary ---
Author Organization [facility] Address [address] [place] [phone] Phone Care Team Providers Care Aix System Administrator Name Role Phone Allie Sinclair Primary Care Provider [phone] Reason for Visit * Reason Comments Med Refill Encounter Details Date Type Department Care Team ([facility] Contact Info) Description 08/21/2024 Refill [facility] [address] [phone] Lizzeth Mohan NP [address] [phone] Social History Tobacco Use Types Packs/Day Years [...] Upcoming Encounters Date Type Department Care Team ([facility] Contact Info) Description 04/13/2025 1:20 PM CDT Office Visit [facility] [address] [facility] [place], [place] [phone] Lizzeth Mohan NP [address] [address] documented as of this encounter Visit Diagnoses Not on filedocumented in this encounter Care Teams Aix System Administrator Relationship Specialty Start Date End Date Allie Sinclair PA [address] [place] [phone] PCP - General Family Medicine 11/08/24 documented as of this encounter
--- OUTSIDE RECORDS SUMMARY | 2024-12-28 14:48 | XMS_ITS | Data Portability ---
Author Organization [place] - [facility] Address [address] [place] [address] Care Team Providers Care Resident Services Coordinator Name Role Phone ELIAS FIGUEROA Primary Care [...] By Organization Details Last Modified Time 10/14/2022 39114 Exercise advised Low cholesterol diet advised Low sodium diet advised. dejahi Not available 10/14/2022 13:23:36 11/04/2022 40580 Low cholesterol diet advised Low sodium diet [...] Address Organization Details Recorded Time Essential hypertension 61709794 Active 2022 Denny Vargas null, [place] - [facility] 18:31:18 Hyperlipidemia 56861096 Active 2022 Denny [place] [facility] 18:31:38 Diabetes mellitus 08964276 Active 2022 Denny [place] [facility] 18:31:53 Tuberculosis 67543404 Active 2022 Denny [place] [facility] 18:32:07 Vitamin D deficiency 11124491 Active 2022 Baldwin Mesto [place], [place] - [facility] 3 18:32:23 Hypomagnesemia 918175475 Active 2022 Baldwin [place] [facility] 3 18:32:33 Hypokalemia 92948573 Active 2022 Baldwin [place] [facility] 3 18:32:43 Depressive disorder 25608216 Active 2022 Baldwin [place] [facility] 3 18:32:50 Migraine 38013416 Active 2022 [place] [facility] 3 18:33:03 Carpal tunnel syndrome 59015256 Active 2022 [place] [facility] 3 18:33:16 Allergic rhinitis 30327595 Active 2022 [place] [facility] 3 18:33:36 Gallstone 159462681 Active 2022 [place] [facility] 3 18:33:55 Renal failure syndrome 74914764 Active 2022 Baldwin [place] [facility] 3 18:34:09 Acute urinary tract infection 480024314 Active 2022 Abldwin [place] [facility] 3 18:34:23 Contact dermatitis 38873786 Active 2022 [place] [facility] 3 18:34:38 Arthritis 7581523 Active 2022 [place] [facility] 3 18:34:45 Swelling of knee joint 124040047 Active 2022 [place] [facility] 3 18:35:00 Pain of shoulder region 58928115 Active 2022 [place] [facility] 3 18:35:16 Neck pain 61892296 Active 2022 Baldwin [place] [facility] 18:35:26 Plantar fasciitis 335060649 Active 2022 [facility] 18:35:43 Seizure 74574694 Active 2022 Baldwinkenji Vargas [facility] 18:35:56 Obstructive sleep apnea syndrome 80125437 Active 2022 [facility] 18:36:03 History of anemia vitamin B12 deficient 824015381 Active 2022 Baldwinkenji Vargas [facility] 18:36:37 Diverticulosis of colon 710918133 Active 2022 [facility] 18:36:57 Problem Notes None recorded. Procedures Surgical History Date Name Laterality Status Provider Name and Address Organization Details Recorded Time arthroscopic procedure completed [facility] 10/08/2022 18:40:15 tonsillectomy completed [facility] 10/08/2022 18:40:23 ligation of fallopian tube completed [facility] 10/08/2022 18:40:33 Brain aneurysm repr simple completed [facility] 10/08/2022 18:40:53 Imaging Results None recorded. Procedure Notes None recorded. Medical Equipment None [...] Updated DateTime 3 170.18 cm 34.8 kg/m2 952518. 51 g 75 /min 16 /min 94 % 94 % 132 mm[Hg] 84 mm[Hg] Gilberto Carreon [facility] 3 13:13:32 Date Recorded Body height Body mass index (BMI) Body weight Heart rate Oxygen saturation Oxygen saturation in Arterial blood by Pulse oximetry Systolic blood pressure Diastolic blood pressure Provider Name and Address Organization Details Last Updated DateTime 3 170.18 cm 33.9 kg/m2 70512.1 1 g 85 /min 99 % 99 % 130 mm[Hg] 80 mm[Hg] Zuly Alexander [facility] 3 12:05:28 Social History None recorded. Functional [...] SNOMED-CT Code Diagnosis ICD10 Code Diagnosis Note 05662 Juwan Newton MD [facility] [place] [address] 10/14/2022 12:43:23 10/14/2022 13:26:45 Essential hypertension 07750031 I10 with fair control Hyperlipidemia 60200865 E78.5 Needs to keep LDL less than 70, and HDL more than 40 Will get lipid profile results from PCP Electrocar diogram abnormal 139037256 R94.31 Lexiscan Myoview stress test, pt can not walk. Has known coronary artery disease, with atypical symptoms now Chronic di astolic heart failure 952906345 I50.32 Obtain echo to evaluate for structural /functiona l disease. Edema of l ower extremity 031351081 R60.0 Obtain echo to evaluate for structural /functiona l disease. Pre-surger y evaluation 097383168 Z01.818 Lexiscan Myoview stress test, pt can not walk. Has known coronary artery disease, with atypical symptoms now, the patient is not able to walk on treadmill [address] Juwan Newton MD [facility] [address] [place] [address] 11/04/2022 11:12:20 11/04/2022 12:35:12 Dyspnea on exertion 79483346 R06.09 US, echocardio gramLV chamber size is [...] well visualized . Atypical chest pain 1025 19975 R07.89 she has a positive stress test The patient will be scheduled for left heart catheteriz ation, with coronary angiogram, and possible PTCA/Stent . The procedure was discussed with the patient, and risks, benefits, and alternativ e options were explained. The patient was given informatio n about heart catheteriz ation and interventi onal procedures . The patient agrees to proceed. Dyslipidemia 944366561 E 78.5 continue with lipitor 40 mg daily Obstructiv e sleep apnea syndrome 02676277 G47.33 she has sleep study previously but it was mild per patient Essential hypertension 95345436 I10 with fair control Pre-surger y evaluation 430327384 Z01.818 with positive stress testThe patient will be scheduled for left heart catheteriz ation, with coronary angiogram, and possible PTCA/Stent . The procedure was discussed with the patient, and risks, benefits, and alternativ e options were explained. The patient was given informatio n about heart catheteriz ation and interventi onal procedures . The patient agrees to proceed. Paroxysmal atrial fibrillation 219671752 I48.0 in sinus rhythm todayshe is not on blood thinner nor aspirin Health Concerns Section Related Observation LastModified by Organization Detai ls LastModified Time None Recorded Concern Status LastModified by Organization Details LastModified Time None Recorded Advance Directives Directive None Recorded Payers Insurance Date Sequence Insurance Name Policy Number Policy Shepard Covered Member ID Shepard Member ID Guarantor Name 11/03/2022 1 [place] Kerline Martin [id number] Kerline Martin 11/03/2022 2 [place] [employer] Kerline Martin [id number] Kerline Martin Notes Date Note Type Note [...] somnolence and AM headache. Juwan Newton MD [address] [place], [address], [facility] 10/14/2022 13:24:53 11/04/2022 text/html 10/14/22CC: [...] snoring, daytime somnolence and AM headache. BOB SANTANA [place], [place] - [facility] 11/04/2022 12:47:11 OBGyn Episode No OBEpisode recorded.
--- OUTSIDE RECORDS SUMMARY | 2024-12-28 14:48 | XMS_ITS | Clinical Summary ---
Author Organization [facility] Address [address] [place] [address] Phone Care Team Providers Care Portfolio Analyst Name Role Phone Allie Sinclair Primary Care Provider [phone] Allergies No known active allergies Medications atorvastatin (LIPITOR) 40 MG tablet Onee tablet at bedtime 0 6 Active acetaminophen (TYLENOL) 325 MG tablet Take 2 tablets by mouth in the morning and 2 tablets in the evening. Active metoprolol tartrate (LOPRESSOR) 25 MG tablet Take 25 mg by mouth every 12 (twelve) hours Active Cholecalciferol (Vitamin D3) 1.25 MG (67489 UT) capsule Take 50,000 Units by mouth [...] and 250 mg in the evening. Active Active Problems [...] on file Legal Sex Female 7:35 AM [facility] Gender Identity Not on file Sexual [...] 1:21 PM CDT Height 170.2 cm (5' 7) 11/10/2024 1:21 PM CDT Body Mass Index 27.57 11/10/2024 1:21 PM CDT Plan of Treatment Upcoming Encounters Date Type Department Care Team ([facility] Contact Info) Description 04/13/2025 1:20 PM CDT Office Visit [facility] [address] [place] [address] 1 [place] [address] Lizzeth Mohan, CASH SPECIALIST [address] [address] Health Maintenance Due Date Last Done Comments Diabetic Foot Exam 01/14/1964 Ophthalmology Exam 01/14/1964 Pneumococcal PPSV23/PCV13 65 + Years / High and Highest Risk (1 of 5 - PCV) 1973 Influenza Vaccine (Season Ended) 2025 05/04/2023, 05/10/2021, 05/17/2019, Additional history exists Insurance MEDICARE [facility] MEDICARE Care Teams Portfolio Analyst Relationship Specialty Start Date End Date Allie Sinclair PA [address] [place] [address] PCP - General Family Medicine 11/08/24
--- OUTSIDE RECORDS SUMMARY | 2024-12-28 14:48 | XMS_ITS | Referral Summary ---
Author Organization [facility] [employer] [place] Address [address] [place] [id number] Care Team Providers Care Spa Experience Coordinator Name Role Phone Marcelino Gore Primary Care Provider + Allergies Active Allergy Reactions Criticality Noted Date Comments Aspartame Diarrhea Medium 07/26/2022 Morphine Other (See comments) High 09/10/2023 Pt had bad experience: Acute drug intoxication - called EMS, almost had to complete temporary HD - went to [facility] Medications acetaminophen (TYLENOL EXTRA STRENGTH) 500 [...] 1 tablet (5 mg total) by mouth speech lang path before breakfast 4 Active fenofibrate (TRIGLIDE) 160 mg tabletIndication s:hyperlipidemia Take 1 tablet (160 mg total) by mouth speech lang path before breakfast Active dapagliflozin propanediol (FARXIGA) 10 mg tabletIndication s:type 2 diabetes mellitus Take 1 tablet (10 mg total) by mouth speech lang path before breakfast 3 Active aspirin 81 mg chewable tabletIndication s:prevention of thrombosis Take 1 tablet (81 mg total) by mouth speech lang path before breakfast 2 Active amLODIPine (NORVASC) 10 mg tabletIndication s:hypertension Take 1 tablet (10 mg total) by mouth speech lang path before breakfast 8 Active miconazole 2 % [...] Active Problems Problem Noted Date Diagnosed Date 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 Will start on amoxicillin 500 mg b.i.d. x5 days, doxycycline 100 mg b.i.d. x5 days, started on 08/09/22. Continue pain management with Tylenol 650 Q 6. Continue wound care. Assessment & Plan (08/09/2022 6:49 PM BOTTOM BRUSHER): Has erythema, warmth with more drainage. Will start on amoxicillin 500 mg b.i.d. x5 days, doxycycline 100 mg b.i.d. x5 days. Continue pain management with Tylenol 650 Q 6. Continue wound care. Moderate vascular dementia w ithout behavioral disturbance, psychotic disturbance, mood disturbance, or anxiety 08/09/2022 Assessment & Plan (08/13/2022 6:45 AM BOTTOM BRUSHER): Patient is pleasantly confused. No behaviors. Slums 16/30. Continue Zoloft 100 mg daily. Continue supportive care. Patient need supervision and care after discharge Assessment & Plan (08/09/2022 6:58 PM BOTTOM BRUSHER): Patient is pleasantly confused. No behaviors. Slums 16/30. Continue Zoloft 100 mg daily. Continue supportive care. Patient need supervision and care after discharge Closed fracture of shaft of left humerus with routine healing 08/07/2022 Assessment & Plan (08/13/2022 6:42 AM BOTTOM BRUSHER): Due to fall. Imaging revealed left humeral shaft fracture, complicated with radial nerve palsy. Orthopedic managed conservatively with brace. SHAMIKA PRADHAN. Pain management with Tylenol 650 Q 6. Patient had follow-up with Dr. Thomas today. Recommended to continue Left arm brace, according to special instructions for placement and cleaning.Pt will be dc today to [facility]. Assessment & Plan (08/09/2022 6:51 PM BOTTOM BRUSHER): Pain overall controlled. Reminded patient that has follow-up with Dr. Thomas 08/11/2022. Daughter to provide transportation. Assessment & Plan (08/07/2022 6:17 AM BOTTOM BRUSHER): Due to fall. Imaging revealed left humeral shaft fracture, complicated with radial nerve palsy. Orthopedic managed conservatively with brace. SHAMIKA PRADHAN. Pain management with Tylenol 650 Q 6. Patient follow-up with Dr. Thomas on 08/11/22 for repeat imaging and treatment plan Paroxysmal A-fib 08/07/2022 Assessment & Plan (08/13/2022 6:43 AM BOTTOM BRUSHER): Patient developed paroxysmal AFib while inpatient, was started on metoprolol 25 mg b.i.d. and Eliquis 5 mg b.i.d., which later placed on hold due to GI Assessment & Plan (08/07/2022 6:18 AM BOTTOM BRUSHER): Patient developed paroxysmal AFib while inpatient, was started on metoprolol 25 mg b.i.d. and Eliquis 5 mg b.i.d., which later placed on hold due to GI Gastrointestinal hemorrhage with melena 08/07/19 Assessment & Plan (08/13/2022 6:46 AM BOTTOM BRUSHER): Patient was started on Eliquis for AFib, followed by acute blood loss anemia. Home med Plavix, Eliquis placed on hold. EGD done showed multiple gastric and duodenal ulcers. Status post blood transfusions. H pylori negative. Denies any melena or GI bleed now. Continue pantoprazole 40 mg b.i.d.. Avoid NSAIDs, AC till follow-up with GI. Assessment & Plan (08/07/2022 6:32 AM BOTTOM BRUSHER): Patient was started on Eliquis for AFib, [...] 08/07/2022 Assessment & Plan (08/13/2022 6:43 AM BOTTOM BRUSHER): 2/2 GIB (gastric, duodenal ulcers). Received blood transfusions. Hold NSAIDs, anticoagulants. CBC check a.m. Assessment & Plan (08/07/2022 6:20 AM BOTTOM BRUSHER): 2/2 GIB (gastric, duodenal ulcers). Received blood transfusions. Hold NSAIDs, anticoagulants. CBC check a.m. Acute kidney injury superimposed on chronic kidn ey disease 08/07/2022 Assessment & Plan (08/13/2022 6:45 AM BOTTOM BRUSHER): Baseline creatinine around 1. Was elevated while inpatient. Will hold chlorthalidone now, till BMP results. If creatinine elevated may consider holding lisinopril as well. Avoid nephrotoxic drugs. Monitor renal function Assessment & Plan (08/07/2022 6:30 AM BOTTOM BRUSHER): Baseline creatinine around 1. Was elevated while [...] 08/27/2021 Assessment & Plan (08/13/2022 6:45 AM BOTTOM BRUSHER): Patient currently asymptomatic. No seizure episode. Continue home med Keppra 750 mg b.i.d.. Will check Keppra level next labs. Assessment & Plan (08/07/2022 6:31 AM BOTTOM BRUSHER): Patient currently asymptomatic. No seizure episode. Continue home med Keppra 750 mg b.i.d.. Will check Keppra level next labs. Depressive disorder 08/27/2021 Assessment & Plan (08/13/2022 6:45 AM BOTTOM BRUSHER): Mood currently stable. Continue home med sertraline 100 mg daily. Assessment & Plan (08/07/2022 6:31 AM BOTTOM BRUSHER): Mood currently stable. Continue home med sertraline [...] 03/14/2019 Assessment & Plan (08/13/2022 6:44 AM BOTTOM BRUSHER): Continue Lipitor 40 mg daily, Zetia Assessment & Plan (08/07/2022 6:32 AM BOTTOM BRUSHER): Continue Lipitor 40 mg daily, Zetia Encounter for screening for cardiovascular disor ders 03/14/2019 Hypomagnesemia 03/14/2019 Palpitations 03/14/2019 Essential hypertension 03/08/2019 Assessment & Plan (08/13/2022 6:44 AM BOTTOM BRUSHER): Blood pressure and heart rate fluctuates. Continue amlodipine 10 mg, lisinopril 40 mg, metoprolol 25 mg b.i.d. added due to AFib while inpatient. Will hold down 25 mg for now due to elevated creatinine last labs. Monitor blood pressure, adjust meds accordingly. Assessment & Plan (08/07/2022 6:22 AM BOTTOM BRUSHER): Blood pressure and heart rate fluctuates. Continue [...] 04/28/2016 Assessment & Plan (08/13/2022 6:44 AM BOTTOM BRUSHER): A1c 6.6 a year ago. Continue Lantus 12 units bedtime, Tradjenta 5 mg, glipizide 5 mg. Will check A1c level next labs. Monitor Accu-Cheks Assessment & Plan (08/07/2022 6:26 AM BOTTOM BRUSHER): A1c 6.6 a year ago. Continue Lantus [...] on file Legal Sex Female 3:49 AM BOTTOM BRUSHER Gender Identity Not on file Sexual Orientation [...] testing HEMOGLOBIN A1C Routine 08/28/2021 4:53 AM BOTTOM BRUSHER OCCULT BLOOD, FECAL (FIT) Routine 03/18/2018 8:45 [...] BLOOD ORDERABLES Final Re sult BLAYNE VIERA [address] [facility] Department [place] [address] * (ABNORMAL) Hemoglobin A1c (08/28/2021 4:53 AM BOTTOM BRUSHER) [facility] Hgb A1C 6.6(H) 4.0 - 5.6 % BLAYNE Comment:Testing performed by : [address] [address] Estimated Average Glucose 143 mg/dL BLAYNE Comment: The ADA recommends reporting an estimated Average Glucose (eAG) with all Hemoglobin A1c results using the equation derived from a study of 507 normal and diabetic adults. Minority populations were underrepresented and children were not included. (Diabetes Care 31:4738-6560, 2008). The eAG is not equivalent to a fasting glucose. Testing performed by: [facility], [address] [place] [address]., [id number] Blood 08/28/2021 4:53 AM BOTTOM BRUSHER 08/28/2021 5:00 AM BOTTOM BRUSHER Janet Guan DO LAB BLOOD ORDERABLES Final Re sult [facility] [address] [facility] Department [place] [address] * Occult blood, fecal non neoplasm screening (03/18/2018 8:45 PM CDT) [facility] Stool Occult Blood POSITIVE NEGATIVE 03/18/2018 10:[address] [facility] HISTORICAL RESULTS 03/18/2018 8:45 PM CDT 03/18/2018 10:08 PM CDT Kassandra Saab NP LAB BODY FLUIDS AND STOOLS ORDER JIM Final Result [facility] HISTORICAL RESULTS * (ABNORMAL) TNI with LIPID PANEL (11/29/2016 3:21 PM CDT) [facility] Troponin I < 0.300 0.000 - 0.300 ng/mL 11/29/2016 3:[address] [facility] HISTORICAL RESULTS Comment: Reference using GEE Chemiluminescence Negative: Repeat in 4-6 hours as indicated. Triglycerides 124 0 - 199 mg/dL 11/29/2016 3:[address] [facility] HISTORICAL RESULTS Comment:12 hr pc highly davis mmended for Triglyceride Cholesterol 212(H) 0 - 199 mg/dL 11/29/2016 3:[address] [facility] HISTORICAL RESULTS Comment: Borderline: 200-239 High Risk: >239 HDL Cholesterol 82(H) 40 - 60 mg/dL 11/29/2016 3:[address] [facility] HISTORICAL RESULTS Comment: Major Risk < 40 mg/dL Moderate Risk 40-60 mg/dL Negative Risk > 60 mg/dL LDL Cholesterol, Calc 105 0 - 130 mg/dL 11/29/2016 3:54 PM CDT [facility] HISTORICAL RESULTS Comment:High Risk > 159 mg/d L Cholesterol/HDL Ratio 2.6 11/29/2016 3:[address] [facility] HISTORICAL RESULTS Comment: Cholesterol / HDL Ratio 3.5:1 or less is desirable. Cholesterol / HDL Ratio greater than 5:1 is considered higher risk for developing heart disease. 11/29/2016 3:21 PM CDT 11/29/2016 3:28 PM CDT Narrative [facility] HISTORICAL RESULTS - 11/29/2016 3:54 PM CDT us Lester Marcelino Mccann MD LAB BLOOD ORDERABLES Final Result [facility] HISTORICAL RESULTS from Last 3 Months or Most Recently Relevant to Health Maintenance Insurance [facility] MEDICARE MEDICARE IDAR IDAR MEDICARE Advance Directives For more information, please contact: [phone] * Full Code (Latest Code Status on File) Date Activated Date Inactivated Comments 11/05/2022 11:01 AM 11/05/2022 5:09 PM Healthcare Agents on File Name Relationship Healthcare Agent Relationsal p Communication Prakash Olson Friend Second Alternate Health Care Agent Care Teams Spa Experience Coordinator Relationship Specialty Start Date End Date Marcelino Gore PA [address] [place] [id number] PCP - General 09/08/19
--- OUTSIDE RECORDS SUMMARY | 2024-12-28 14:48 | XMS_ITS | Clinical Summary ---
Author Organization [facility] Address [address] [place] [address] Care Team Providers Care Art Therapist Name Role Phone Allie Sinclair PA-C Primary Care Provider [phone] Source Comments [facility],non-owned Affiliates and Associated Physician Practices is amultiple site organization consisting of ambulatory clinics and hospital sitesin [place], [place], [place] and [place]. This disclosure is being madepursuant to the Care Everywhere program and may not contain all information available regarding this patient. Last updated 18.[facility] Allergies Active Allergy Reactions Criticality Noted Date Comments Artificial Sweeteners Diarrhea Medium 07/26/2022 Aspartame Diarrhea Medium 07/26/2022 Morphine Other High 09/10/2023 Pt had bad experience: Acute drug intoxication - called EMS, almost had to complete temporary HD - went to [facility] Medications * Be aware that medications [...] 09/10/2023 midazolam (Nayzilam) 5 MG/0.1ML nasal spray [place] 0.1 mL into the nose as needed for Seizures Lasting longer than 5 minutes. Can administer second dose in other nostril if seizure continues after 10 minutes. 4 Each 5 09/04/19 Active Additional Information Patient not taking.Reported on 11/07/2022 Cholecalciferol 1.25 MG (15710 UT) cholecalciferol (vitamin D3) 1,250 mcg (50,000 unit) capsule TAKE 1 CAPSULE BY MOUTH EVERY WEEK WITH FOOD Active saline nasal spray ([place]; Baby Bradshaw) 0.65 % nasal spray [place] 1 (one) spray to 2 (two) sprays [...] 07/07/20 23 Active Blood Glucose Monitoring Suppl (Net Orange Verio Flex System) w/Device KIT USE TO CHECK BLOOD SUGAR THREE TIMES DAILY 05/04/20 23 Active amLODIPine (Norvasc) 10 MG tablet Take 1 (one) tablet by mouth every morning 07/21/19 24 Active fenofibrate (Lofibra) 160 MG tablet TAKE 1 TABLET BY MOUTH EVERY DAY WITH MEALS 08/17/19 24 Active Net Orange Verio test strip USE TO CHECK BLOOD SUGAR TWICE DAILY 05/05/20 23 Active Lancets (LogFireTOUCH DELICA PLUS 33G EXTRA FINE LANCET) USE [...] dc today to [facility]. 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 Not hard at all 11/29/2022 [facility] [place] of Occupat ional Health - Occupational Stress [...] in a detention (including now)? No 11/29/2022 Comments No Sex and Gender Information Value Date Recorded Sex Assigned at Not on file Legal Sex Female 6:[address] LIGHT CLEANER Gender Identity Not on file Sexual Orientation Not on file Last Filed Vital Signs Vital Sign Reading Time Taken Comments Blood Pressure 123/68 09/17/2023 3:[address] LIGHT CLEANER Pulse 68 09/17/2023 3:[address] LIGHT CLEANER Temperature 36.5 C (97.7 F) 09/17/2023 3:[address] LIGHT CLEANER Respiratory Rate 13 09/17/2023 3:[address] LIGHT CLEANER Oxygen Saturation 98% 09/17/2023 3:[address] LIGHT CLEANER Inhaled Oxygen Concentration 25% 07/23/2022 1 0:[address] LIGHT CLEANER Weight 90.9 kg (200 lb 6.4 oz) 09/17/2023 12:[address] LIGHT CLEANER Height 170.2 cm (5' 7) 09/17/2023 12:[address] LIGHT CLEANER Body Mass Index 31.39 09/17/2023 12:[address] LIGHT CLEANER Plan of Treatment Health Maintenance Due Date [...] this topic Medical Devices Implanted Type Area Container Repairer Device Identifier Shelf Expiration Date Model / Serial / Lot Parth Bone Void 5cc Dbm Allosync Ptty Implanted:Qty: 2 on 11/25/2022 by Robbie Mccann MD at [facility] Left: Humerus [employer] 04/23/2026 / / Screw 3.5mm 32mm T15 Slf-Tap Lck Tpr Implanted:Qty: 1 on 11/25/2022 by Robbie Mccann MD at [facility] Left: Humerus [employer] [id number] / / Screw 3.5mm 36mm T15 Slf-Tap Lck Tpr Implanted:Qty: 1 on 11/25/2022 by Robbie Mccann MD at [facility] Left: Humerus [employer] [id number] / / Screw 3.5mm 38mm T15 Slf-Tap Lck Tpr Implanted:Qty: 1 on 11/25/2022 by Robbie Mccann MD at [facility] Left: Humerus [employer] [id number] / / Screw 3.5mm 42mm T15 Lck Slf-Tap Tip Tpr Implanted:Qty: 1 on 11/25/2022 by Robbie Mccann MD at [facility] Left: Humerus [employer] [id number] / / Screw 3.5mm 46mm T15 Slf-Tap Lck Tpr Implanted:Qty: 1 on 11/25/2022 by Robbie Mccann MD at [facility] Left: Humerus [employer] [id number] / / Screw 3.5mm 48mm T15 Slf-Tap Lck Tpr Implanted:Qty: 1 on 11/25/2022 by Robbie Mccann MD at [facility] Left: Humerus [employer] [id number] / / Screw 3.5mm 46mm T15 Lck Mldir Nonster Implanted:Qty: 1 on 11/25/2022 by Robbie Mccann MD at [facility] Left: Humerus [employer] [id number] / / Graft Bone Infs Rhbmp-2 Bvn Clgn Lg 8ml Implanted:Qty: 1 on 11/25/2022 by Robbie Mccann MD at [facility] Left: Humerus [employer] 07/20/2024 [id number] / / [id number] Graft Bone Almtr Dbm Canc 5ml Algrf Ptty - [id number] Implanted:Qty: 1 on 11/25/2022 by Robbie Mccann MD at [facility] Left: Humerus [employer] 09/22/2023 [id number] / [id number] / Alps Proximal Humerus Low Plate Left 11 H, 190mm Implanted:Qty: 1 on 11/25/2022 by Robbie Mccann MD at [facility] Left: Humerus [id number] / / Screw 3.5mm 20mm T15 Lopro Nonlock Implanted:Qty: 3 on 11/25/2022 by Robbie Mccann MD at [facility] Left: Humerus [employer] [id number] / / Screw 3.5mm 22mm T15 Nonlock Lopro Implanted:Qty: 1 on 11/25/2022 by Robbie Mccann MD at [facility] Left: Humerus [employer] [id number] / / Screw 3.5mm 24mm T15 Nonlock Lopro Implanted:Qty: 1 on 11/25/2022 by Robbie Mccann MD at [facility] Left: Humerus [employer] [id number] / / Screw 3.5mm 32mm T15 Nonlock Lopro Implanted:Qty: 1 on 11/25/2022 by Robbie Mccann MD at [facility] Left: Humerus [employer] [id number] / / Explanted Type Area Container Repairer Device Identifier Shelf Expiration Date Model / Serial / Lot Screw 3.5mm 36mm T15 Slf-Tap Lck Tpr Explanted:Qty: 1 on 11/25/2022 by Robbie Mccann MD at [facility] Left: Humerus [employer] [id number] / / Screw 3.5mm 48mm T15 Slf-Tap Lck Tpr Explanted:Qty: 2 on 11/25/2022 by Robbie Mccann MD at [facility] Left: Humerus [employer] [id number] / / Wire K 2mm 152mm Top Tray Ss Fx Explanted:Qty: 4 on 11/25/2022 by Robbie Mccann MD at [facility] Left: Humerus [employer] [id number] / / Screw 3.5mm 24mm T15 Nonlock Lopro Explanted:Qty: 1 on 11/25/2022 by Robbie Mccann MD at [facility] Left: Humerus [employer] [id number] / / Procedures Procedure Name Priority Date/Time Associated Diagnosis Comments RENAL FUNCTION PANEL AM Draw 12/04/2022 2:46 AM CDT HEMOGLOBIN A1C Routine 11/26/2022 1:18 AM CDT Other fracture of shaft of left humerus, subsequent encounter for fracture with malunion HEPATITIS SCREEN ACUTE AM Draw 07/24/2022 4:[address] LIGHT CLEANER from Last 3 Months or Most Recently Relevant to Health Maintenance Results * (ABNORMAL) RENAL FUNCTION PANEL (12/04/2022 2:46 AM CDT) BUN 7 7 - 26 mg/dL 12/04/2022 4:[address] [facility] Creatinine 0.98(H) 0.56 - 0.96 mg/dL 12/04/2022 4:[address] [facility] Sodium 149(H) 136 - 145 mmol/L 12/04/2022 4:[address] [facility] Potassium 4.4 3.5 - 4.5 mmol/L 12/04/2022 4:[address] [facility] Chloride 112(H) 98 - 107 mmol/L 12/04/2022 4:[address] [facility] CO2 18(L) 22 - 29 mmol/L 12/04/2022 4:[address] [facility] Glucose 155(H) 70 - 115 mg/dL 12/04/2022 4:[address] [facility] Albumin 2.6(L) 3.4 - 5.0 g/dL 12/04/2022 4:[address] [facility] Calcium 9.0 8.4 - 10.2 mg/dL 12/04/2022 4:[address] [facility] Phosphorus 3.7 2.9 - 5.1 mg/dL 12/04/2022 4:[address] [facility] Anion Gap 23(H) 8 - 18 12/04/2022 4:03 AM CDT [facility] BUN/Creatinine Ratio 7 7 - 23 12/04/2022 4:03 AM T [facility] Osmolality Calculated 309(H) 270 - 300 mOsm/kg 12/04/2022 4:03 AM [facility] eGFR by CKD-EPI 63(L) >=90 mL/min/1.7 3 m2 12/04/2022 4:03 AM [facility] Blood BLOOD SPECIMEN / Unknown Lab Venipuncture / Unknown 12/04/2022 2:46 AM CDT 12/04/2022 3:24 AM CDT Blaine Campo MD LAB - CHEMISTRY ORDERABLES Final Result [facility] [address] [place] [address], [facility] [phone] * (ABNORMAL) HEMOGLOBIN A1C (11/26/2022 1:18 AM CDT) Hemoglobin A1c 9.1(H) <=5.6 % 11/26/2022 1:26 PM [facility] Estimated Average Glucose 214 mg/dL 11/26/2022 1:26 PM [facility] Comment: HbA1c Interpretation: Normal : < 5.7% Pre-diabetes: 5.7-6.4% Diabetes: Equal to or greater than 6.5% Test results diagnostic of diabetes should be repeated for confirmation. Treatment target values recommended by ADA and other clinical organizations should be used to evaluate metabolic control in patients. Reference: [place] Diabetes Association, Standards of Care in Diabetes [...] ORDERABLES Mary l Result Performing Organization Address City/[facility]/ZIP Co de Phone Number [facility] [address] [place] [address], [place] [phone] * HEPATITIS SCREEN ACUTE (07/24/2022 4:[address] LIGHT CLEANER) Hepatitis A Virus Antibody IgM Non-react bartolome Non-reac tive 07/24/2022 5:[address] LIGHT CLEANER [facility] Hepatitis B Virus Surface Antigen Non-react bartolome Non-reac tive 07/24/2022 5:[address] LIGHT CLEANER [facility] Hepatitis B Core Virus Antibody IgM Non-react bartolome Non-reac tive 07/24/2022 5:[address] LIGHT CLEANER [facility] Hepatitis C Antibody Non-react bartolome Non-reac tive 07/24/2022 5:11 AM [facility] Comment:Hepatitis C Antibody screen indicates no serologic evidence of past or current infection with Hepatitis C Virus. Patients with unexplained liver disease who are immunocompromised or suspected of having acute Hepatitis C infection may benefit from Nucleic Acid Test (CHA) for Hepatitis C Viral RNA to confirm Hepatitis C status. Blood BLOOD SPECIMEN / Unknown Venipuncture / Unknown 07/24/2022 4:[address] LIGHT CLEANER 07/24/2022 4:37 AM [facility] Sarabjit Gutierrez MD LAB - CHEMISTRY ORDERAB LES Final Result Performing Organization Address [facility]/ZIP Co de Phone Number [facility] [address] [place] [phone], [facility] [phone] from Last 3 Months or Most Recently Relevant to Health Maintenance Insurance MEDICARE MEDICAID - [place] MEDICAID [facility] MEDICARE Advance Directives Documents on File Type Date Recorded Patient Charting Clerk Expl anation Adv Directive/Living Will/POA 08/01/2022 11:56 [...] Martin Daughter Health Care Agent Care Teams Art Therapist Relationship Specialty Start Date End Date Allie Sinclair PA-C [address] [place] [phone] PCP - General 07/08/22
--- OUTSIDE RECORDS SUMMARY | 2024-12-28 14:48 | XMS_ITS | CONTINUITY OF CARE DOCUMENT ---
Author Name jaqueline parsons Address Unknown Organization [facility] Address [address] [place] [address] Phone [phone] Care Team Providers Care Wheel Molder Name Role Phone Lc Abernathy MD Unavailable [phone] MADY MORAN Unavailable MADY MORAN Unavailable PROBLEMS [...] In-person encounter Office Visit Lc Abernathy MD [place] 4 - 5 In-person encounter Office Visit Lc [place] [facility] 3 - 3 In-person encounter Office Visit Lc Abernathy MD [facility] 6 - 6 In-person encounter Office Visit Lc Abernathy MD [place] Cardiology examinationFamily History of Hypertension:Family History of CVA or Stroke:Family History of CVA or Stroke:Family History of Hypertension:HTN essentialDiabetes mellitusPalpitationsHyperlipidemia VITAL SIGNS Date Observation Value Provider Body Mass Index (Ratio) 38.37 kg/m2 Dallas Abernathy MD blood pressure, diastolic 80 mm[Hg] Li nkLog blood pressure, systolic 130 mm[Hg] Estella kLog blood pressure, cuff size large Jonathon xiao Craig blood pressure, diastolic 80 mm[Hg] Jonathon ninoska Craig blood pressure, systolic 130 mm[Hg] Nadia brown Craig oxygen saturation, oximetry 97 % [facility] rate E&M 15 /min [facility] pulse rate 74 /min [facility] weight E&M 245 [lb_av] [facility] height E&M 67 [in_i] [facility] Body Mass Index (Ratio) 38.68 kg/m2 Dlalas Abernathy MD blood pressure, cuff size regular [...] / Coverage type Dinesh red republican ID [facility] [id number] MD MEDICARE PART B Medicare [id number] ADVANCE DIRECTIVES Name Date DISCUSSED - NO DECISION MADE TREATMENT PLAN Date Name Performer [id number],S, H er updated medication list for this problem includes: Ezetimibe 10 Mg Tablet (Ezetimibe) ..... Take 1 tablet once a day Atorvastatin 40 Mg Tablet (Atorvastatin) ..... Take 1 tablet once a day Lc Abernathy MD [id number],B, B P today: 130/80 P rior BP: 187/84 (09/30/2021) Her updated medication list for this problem includes: Lisinopril 20 Mg Tablet (Lisinopril) ..... Take 1 tablet by mouth once a day Metoprolol Tartrate 25 Mg Tablet (Metoprolol tartrate) ..... 1 tablet twice a day Lc Abernathy MD [id number],B, N o palps. Tele monitor showed sinus bradycardia with extra beats, no significant arrhythmias. Lc Abernathy MD [id number],S, P er PCP Her updated medication list for this problem includes: Lisinopril 20 Mg Tablet (Lisinopril) ..... Take 1 tablet by mouth once a day Glipizide 5 Mg Tablet (Glipizide) ..... Take 1 tablet once a day Januvia 100 Mg Tablet (Sitagliptin) ..... Take 1 tablet once a day Lc Abernathy MD [id number],C, N o palps. Currently on a heart monitor since being in the hospital . Lc Abernathy MD [id number],C, H ad an admission to [facility] for a grand mal seizure. Keppra was increased in the hospital. Feeling well today Lc Abernathy MD [id number],C, H er updated medication list for this problem includes: Ezetimibe 10 Mg Tablet (Ezetimibe) ..... Take 1 tablet once a day Atorvastatin 40 Mg Tablet (Atorvastatin) ..... Take 1 tablet once a day Lc Abernathy MD [id number],C,B P elevated, will increase Lisinopril to 20 [...] MD Cardiology: H ad an admission to [facility] for a grand mal seizure. Keppra [...] a telesentry to see if I can pickle processor arrhythmias. Lc Abernathy MD Cardiology New Patie nt :Will restart metoprolol 25 mg twice daily. Will check an echo. B P today: 128/78 Lc Abernathy MD Date Name BASIC METABOLIC PANE L W/EGFR Holter Monitor 48 hr Complete Echo HISTORY OF PROCEDURES Procedure Date Procedure Name Provider Procedure Notes S tatus EKG Lc Abernathy MD completed
== END 2024-12-28 12:51 | disposition home or self-care (01) ==
LOC: ANHAUDIO 12:51
PROVIDERS: PCP Physician Assistant; Visit Provider Physician Assistant
DX: H90.3 Sensorineural hearing loss, bilateral (principal); H93.19 Tinnitus, unspecified ear
CPT/HCPCS: 92557; 92567

== ENCOUNTER 2025-02-19 10:29 | Emergency (ER) | payer MEDICARE, MEDICAID, SELFPAY ==
--- NOTE | ~2025-02-19 | CT_ITS ---
EXAMINATION: CT brain wo con DATE: 02/19/2025 11:19 INDICATION: Altered mental status TECHNIQUE: Computed tomography (CT) of the head was performed without intravenous contrast. Sagittal and coronal reconstructions were performed. Automated exposure control and iterative reconstruction t echnique were employed. The dose-length product was 605.33 mGy-cm. COMPARISON: head CT dated 10/03/2024 FINDINGS: Unchanged small to moderate-sized region of encephalomalacia at the right temporal parietal region co nsistent with old infarct. Additional small old lacunar infarcts in the right basal ganglia in the le ft frontal lobe pitts radiata.. No acute intracranial hemorrhage, acute infarction or abnormal extra axial fluid collection. There is mild scattered white matter hypoattenuation consistent with chronic small vessel ischemic disease. Ex vacuo dilation of the trigonal region of the right lateral ventri salvador. Ventricles are otherwise normal and symmetric. No mass/mass effect. The orbits, paranasal sinuse s and mastoid air cells are normal. IMPRESSION: 1. No acute intracranial process. 2. Stable appearance of small to moderate-sized right temporal parietal infarct and a few additional small old lacunar infarcts at the right basal ganglia and left frontal lobe pitts radiata.. 3. Mild scattered calcific cerebral white matter hypoattenuation consistent with chronic small vessel ischemic disease. Reviewed, dictated and finalized at location A. IMPRESSION: 1. No acute intracranial process. 2. Stable appearance of small to moderate-sized right temporal parietal infarct and a few additional small old lacunar infarcts at the right basal ganglia and left frontal lobe pitts radiata.. 3. Mild scattered calcific cerebral white matter hypoattenuation consistent wit h chronic small vessel ischemic disease.
[2025-02-19 10:27] VITALS: BP 135/61; PULSE 82; PULSE 88; RESP 14; TEMP 36.8; O2SAT 100
--- NOTE | 2025-02-19 10:34 | ED_ITS ---
HPI - General Adult General Chief complaint: Altered Mental Status Stated complaint: AMS History of Present Illness HPI narrative: 70-year-old female present emergency department for evaluation for possible pseudo-seizure. Patient does have a history of anxiety depression dementia and pseudo-seizure. Patient did get into a verbal argument with a family member and had increased anxiety and then became unresponsive. When EMS arrived patient was more responsive. Upon arrival to the emergency department patient is tearful but responding appropriately. Patient denies any pain or injury. Patient is resting comfortably. Related Data Home Medications ?Medication ?Instructions ?Recorded ?Confirmed ?Last Taken ?Type acetaminophen 325 mg tablet 650 mg PO Q12H PRN fever or pain 10/03/24 10/03/24 Unknown History sennosides 8.6 mg tablet (senna) 8.6 mg PO DAILY PRN constipation 10/03/24 10/03/24 Unknown History Allergies Allergy/AdvReac Type Severity Reaction Status Date / Time metformin Allergy Unknown Unknown Verified 02/19/25 10:49 aspartame Allergy unknown Verified 02/19/25 10:49 insulin glargine (From Allergy unknown Verified 02/19/25 10:49 Lantus U-100 Insulin) morphine Allergy Unknown Verified 02/19/25 10:49 Review of Systems 2 Review of Systems: All systems reviewed & are unremarkable except as noted in HPI and below PMFSH Past Medical History Medical History 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 and increased tone fingers of the left hand History of GI bleed Splenic varices Diabetic nephropathy Meckels diverticulum Duodenal ulcer Vitamin B12 deficiency Vitamin D deficiency CAD (coronary artery disease) Hyperlipidemia Type 2 diabetes mellitus Essential hypertension Seizure disorder GERD (gastroesophageal reflux disease) History of hemorrhagic cerebrovascular accident (CVA) without residual deficits Atrial fibrillation Surgical History Surgical History History of tonsillectomy and adenoidectomy Status post open reduction and internal fixation (ORIF) of fracture Left wrist and hand History of carpal tunnel release Left Family History Family History Sibling Cerebrovascular accident Hypertension Kidney disease Father Bladder cancer Heart disease Hypertension Mother Hypertension Kidney disease Social History Social History Social History: Code status: Full code Power of attorney law clerk for healthcare: Claudia Mohan (daughter) Smoking status: Never smoker Second hand tobacco smoke exposure: No Alcohol intake: former Alcohol use details: The patient used to on occasion drink 1 alcoholic beverage a month. Substance use: never Spiritual care concerns: No Exam 2 Narrative: APPEARANCE: Tearful affect HEAD: normocephalic, atraumatic. EYES: PERRLA/EOMI, conjunctivae clear. NOSE: Normal no drainage EARS:TMS clear with good light reflex. THROAT: Pharynx clear, no exudate. NECK: Supple. No adenopathy, no masses. RESPIRATORY: Airway patent, respirations nonlabored. Clear to auscultation bilaterally, no rales, rhonchi, wheezing. CARDIOVASCULAR: Regular rate and rhythm without murmurs rubs or gallops. ABDOMINAL: Soft, nontender, nondistended, normal bowel sounds MUSCULOSKELETAL: Moves all extremities. Strength/ROM intact, No edema, No calf tenderness. NEURO: Alert. Cranial nerves II through XII intact. Grossly intact SKIN: Warm, dry. Normal Color Course Vital Signs Vital signs: Vital Signs Temperature 98.3 F 02/19/25 10:27 Pulse Rate 88 02/19/25 10:27 Respiratory Rate 14 02/19/25 10:27 Blood Pressure 135/61 02/19/25 10:27 Pulse Oximetry 100 02/19/25 10:27 Oxygen Delivery Room Air 02/19/25 10:27 Temperature 98.3 F 02/19/25 10:27 Pulse Rate 82 02/19/25 12:00 Respiratory Rate 20 02/19/25 12:00 Blood Pressure 133/69 02/19/25 12:00 Pulse Oximetry 98 02/19/25 12:00 Oxygen Delivery Room Air 02/19/25 11:11 Medical Decision Making [facility] Narrative Medical decision making narrative: 70-year-old female presents emergency department for evaluation for increased confusion and having increased emotional lability this morning. Family states patient does have history of anxiety and dementia but was more confused this morning. Patient is currently afebrile with no leukocytosis hemoglobin of 13.1. INR is 1.0. No significant acute abnormalities on the patient's CMP UA is significant for urinary tract infection. Patient does have prior history of UTIs and daughter states that she only responds well to the Cipro and that urology prefer she be treated with Cipro. Patient was started on Cipro in the emergency department. Patient was offered admission for the altered mental status but patient and family strongly prefer to be discharged to home. Daughter states that she is able to take care for the state and prefers to take her mother home. Head CT was negative for acute intracranial abnormality. Patient was started was treated with additional the baby aspirin this morning that she did not take, and patient was also provided Tylenol for headache. Patient was in no distress well-appearing at time of discharge. Differential Diagnosis Differential Diagnosis: Subdural hematoma, subarachnoid hemorrhage, urinary tract infection, dementia, altered mental status Vital Signs Vital Signs: Vital Signs Temperature 98.3 F 02/19/25 10:27 Pulse Rate 88 02/19/25 10:27 Respiratory Rate 14 02/19/25 10:27 Blood Pressure 135/61 02/19/25 10:27 Pulse Oximetry 100 02/19/25 10:27 Oxygen Delivery Room Air 02/19/25 10:27 Temperature 98.3 F 02/19/25 10:27 Pulse Rate 82 02/19/25 12:00 Respiratory Rate 20 02/19/25 12:00 Blood Pressure 133/69 02/19/25 12:00 Pulse Oximetry 98 02/19/25 12:00 Oxygen Delivery Room Air 02/19/25 11:11 Lab Data Lab results reviewed: Yes I reviewed the patient's lab results. 02/19/25 11:07 02/19/25 11:07 Labs: Lab Results 02/19/25 02/19/25 Range/Units 11:07 12:13 WBC 6.4 (4.5-10.0) K/mm3 RBC 4.35 (4.2-5.4) M/mm3 Hgb 13.1 (12.0-15.0) g/dL Hct 40.3 (37.0-47.0) % MCV 92.6 (80-100) fl MCH 30.1 (26-34) pg MCHC 32.5 (32-36) g/dl RDW 12.7 (11.5-14.5) % Plt Count 240 (150-375) k/mm3 MPV 11.6 H (7.4-10.4) fl Immature Gran % (Auto) 0.6 H (0-0.5) % Neut % (Auto) 74.7 H (45.5-73.1) % Lymph % (Auto) 15.2 L (18.3-44.2) % [place] % (Auto) 7.5 (2.6-8.5) % Eos % (Auto) 0.9 (0-4.4) % Baso % (Auto) 1.1 (0.2-1.2) % Lymph # (Auto) 0.98 (0.9-3.2) K/mm3 [place] # (Auto) 0.5 (0.1-0.6) K/mm3 Eos # (Auto) 0.1 (0-0.3) K/mm3 Baso # (Auto) 0.1 (0.0-0.1) K/mm3 Abs Immat Gran (auto) 0.04 H (0.00-0.031) K/mm3 Absolute Neuts (auto) 4.8 (1.3-6.7) K/mm3 Absolute Nucleated RBC 0.000 (0.0-0.012) K/mm3 Nucleated RBC % 0.0 (0.0-0.2) % PT 13.7 (11.1-14.7) Seconds INR 1.0 APTT 22.8 (22.3-36.8) Seconds Sodium 140 (137-145) mmol/L Potassium 4.1 (3.4-5.0) mmol/L Chloride 110 H (98-107) mmol/L Carbon Dioxide 21 L (22-30) mmol/L Anion Gap 9 (4-12) mmol/L BUN 22 H (7-17) mg/dL Creatinine 0.99 (0.7-1.0) mg/dL Estim Creat Clear Calc 46 ml/min Estimated GFR 55 L (59 - ) Glucose 131 H (65-110) mg/dL Calcium 10.2 (8.4-10.2) mg/dL Total Bilirubin 1.0 (0.2-1.3) mg/dL AST 45 H (14-36) U/L ALT 23 (6-35) U/L Alkaline Phosphatase 44 (38-126) U/L Total Protein 7.4 (6.3-8.2) g/dL Albumin 4.1 (3.5-5.1) g/dL Urine Color Yellow (Yellow) Urine Appearance Cloudy H (Clear) Urine pH 5.5 (5.0-9.0) Ur Specific [place] 1.015 (1.001-1.035) Urine Protein Negative (Negative) mg/dL Urine Glucose (UA) Negative (Negative) mg/dL Urine Ketones Negative (Negative) mg/dL Ur Blood (Man) Negative (Negative) Urine Nitrate Positive H (Negative) Urine Bilirubin Negative (Negative) Urine Urobilinogen 0.2 (<2.0) mg/dL Leukocyte Esterase Rfl 2+ H (Negative) DURAN/UL Urine RBC 0-2 (0-2) /hpf Urine WBC >100 H (0-3) /hpf Ur Squamous Epith Cells None seen (Few) /hpf Urine Bacteria 4+ H /hpf Urine Casts 0-2 Imaging Data Radiologist's impression: Impressions Head CT 02/19/25 11:20 IMPRESSION: 1. No acute intracranial process. 2. Stable appearance of small to moderate-sized right temporal parietal infarct and a few additional small old lacunar infarcts at the right basal ganglia and left frontal lobe pitts radiata.. 3. Mild scattered calcific cerebral white matter hypoattenuation consistent with chronic small vessel ischemic disease. Discharge Plan Discharge Clinical Impression: AMS (altered mental status), Urinary tract infection Patient Disposition: Home Condition: Stable Instructions: Antibiotic Form, Urinary Tract Infection in Women (ED) Additional Instructions: You were offered admission for increased confusion. You and your family strongly preferred to be discharged home. You were treated with ciprofloxacin to the emergency department and will be discharged home with an additional prescription for ciprofloxacin. Plenty of fluids and have close follow-up with your primary care physician. If you have any worsening symptoms then please call or return to the emergency department. Patient Language: Nigerien Prescriptions: New ciprofloxacin HCl [Cipro] 500 mg tablet 500 mg PO Q12H 7 Days Qty: 14 0RF No Action sennosides [senna] 8.6 mg tablet 8.6 mg PO DAILY PRN (Reason: constipation) acetaminophen 325 mg tablet 650 mg PO Q12H PRN (Reason: fever or pain) atorvastatin 40 mg Tablet 40 mg PO DAILY 30 Days Qty: 30 1RF amlodipine 10 mg Tablet 10 mg PO QAM 30 Days Qty: 30 1RF fluoxetine 10 mg capsule 10 mg PO DAILY 30 Days Qty: 0 1RF aspirin [Children's Aspirin] 81 mg Tablet,Chewable 81 mg PO DAILY@0800 30 Days Qty: 30 1RF metoprolol tartrate 25 mg Tablet 25 mg PO Q12HR 30 Days Qty: 60 1RF fenofibrate 160 mg tablet 160 mg PO DAILY 30 Days Qty: 0 1RF cholecalciferol (vitamin D3) 1,250 mcg (50,000 unit) Capsule 1,000 unit PO DAILY 30 Days Qty: 0 1RF insulin glargine [Basaglar KwikPen U-100 Insulin] 100 unit/mL (3 mL) insulin pen 20 unit subcut QHS 30 Days Qty: 15 1RF levetiracetam [Keppra] 500 mg Tablet 1,000 mg PO Q12HR 30 Days Qty: 30 1RF Tradjenta 5 mg tablet 5 mg PO DAILY 30 Days Qty: 30 1RF lacosamide 100 mg tablet 100 mg PO BID 30 Days Qty: 60 1RF fluoxetine 10 mg tablet 10 mg PO DAILY Qty: 30 1RF lacosamide 100 mg tablet 100 mg PO Q12H 30 Days Qty: 60 1RF Follow-up/Referrals: Yahir,ZURI Kelley [Primary Care Provider] -
[2025-02-19 10:45] VITALS: BP 135/61; PULSE 95; RESP 14; O2SAT 100
[2025-02-19 11:00] VITALS: BP 128/58; PULSE 84; RESP 13; O2SAT 99
[2025-02-19 11:11] VITALS: O2SAT 97
[2025-02-19 11:19] LABS: Hematocrit 40.3 % (37.0-47.0); Hemoglobin 13.1 g/dL (12.0-15.0); Immature Granulocyte Percent A 0.6 % (0-0.5); Lymphocytes Absolute Auto 0.98 K/mm3 (0.9-3.2); Mean Corpuscular HGB Conc 32.5 g/dl (32-36); Mean Corpuscular Hemoglobin 30.1 pg (26-34); Mean Corpuscular Volume 92.6 fl (80-100); Nucleated Red Blood Cells Absolute Auto 0.000 K/mm3 (0.0-0.012); Nucleated Red Blood Cells Perc 0.0 % (0.0-0.2); Platelet Count Result 240 k/mm3 (150-375); Red Blood Count 4.35 M/mm3 (4.2-5.4); White Blood Count 6.4 K/mm3 (4.5-10.0)
[2025-02-19 11:28] LABS: Alanine Aminotransferase 23 U/L (6-35); Albumin Level 4.1 g/dL (3.5-5.1); Alkaline Phosphatase 44 U/L (38-126); Anion Gap 9 mmol/L (4-12); Aspartate Amino Transferase 45 U/L (14-36); Bilirubin,Total 1.0 mg/dL (0.2-1.3); Blood Urea Nitrogen 22 mg/dL (7-17); Calcium 10.2 mg/dL (8.4-10.2); Carbon Dioxide 21 mmol/L (22-30); Chloride 110 mmol/L (98-107); Estimated CRCL calculation 46 ml/min; Estimated Glomerular Filt Rate 55; Glucose 131 mg/dL (65-110); Potassium 4.1 mmol/L (3.4-5.0); Sodium 140 mmol/L (137-145); Total Protein 7.4 g/dL (6.3-8.2)
--- OUTSIDE RECORDS SUMMARY | 2025-02-19 11:43 | XMS_ITS | Encounter Summary ---
Author Organization [facility] Address [address] [place] [id number] Phone Care Team Providers Care Stripping Machine Operator Name Role Phone Allie Sinclair Primary Care Provider [phone] Reason for Visit * Reason Comments Med Refill Encounter Details Date Type Department Care Team ([facility] Contact Info) Description 08/21/2024 Refill [facility] [address] [phone] Lizzeth Mohan NP [address] [phone] Social History Tobacco Use Types Packs/Day Years [...] Upcoming Encounters Date Type Department Care Team ([facility] Contact Info) Description 04/13/2025 1:20 PM CDT Office Visit [facility] [address] [facility] [address] [place], [place] [phone] Lizzeth Mohan NP [address] [id number] documented as of this encounter Visit Diagnoses Not on filedocumented in this encounter Care Teams Stripping Machine Operator Relationship Specialty Start Date End Date Allie Sinclair PA [address] [place] [phone] PCP - General Family Medicine 11/08/24 documented as of this encounter
--- OUTSIDE RECORDS SUMMARY | 2025-02-19 11:43 | XMS_ITS | Clinical Summary ---
Author Organization [facility] [place] 8 [employer] [place] Address [address] [place] [phone] Care Team Providers Care Laborer Plumbing Name Role Phone Marcelino Gore Primary Care Provider + Allergies Active Allergy Reactions Criticality Noted Date Comments Aspartame Diarrhea Medium 07/26/2022 Morphine Other (See comments) High 09/10/2023 Pt had bad experience: Acute drug intoxication - called EMS, almost had to complete temporary HD - went to [facility] Medications acetaminophen (TYLENOL EXTRA STRENGTH) 500 [...] 1 tablet (5 mg total) by mouth senior business intelligence analyst before breakfast 4 Active fenofibrate (TRIGLIDE) 160 mg tabletIndication s:hyperlipidemia Take 1 tablet (160 mg total) by mouth senior business intelligence analyst before breakfast Active dapagliflozin propanediol (FARXIGA) 10 mg tabletIndication s:type 2 diabetes mellitus Take 1 tablet (10 mg total) by mouth senior business intelligence analyst before breakfast 3 Active aspirin 81 mg chewable tabletIndication s:prevention of thrombosis Take 1 tablet (81 mg total) by mouth senior business intelligence analyst before breakfast 2 Active amLODIPine (NORVASC) 10 mg tabletIndication s:hypertension Take 1 tablet (10 mg total) by mouth senior business intelligence analyst before breakfast 8 Active miconazole 2 [...] Active Problems Problem Noted Date Diagnosed Date [place]-neck deformity of left finger(s) 02/25/2024 Left radial [...] 08/09/2022 Assessment & Plan (08/13/2022 6:43 AM SAW STRAIGHTENER): Has erythema, warmth with more drainage. Will start on amoxicillin 500 mg b.i.d. x5 days, doxycycline 100 mg b.i.d. x5 days, started on 08/09/22. Continue pain management with Tylenol 650 Q 6. Continue wound care. Assessment & Plan (08/09/2022 6:49 PM SAW STRAIGHTENER): Has erythema, warmth with more drainage. Will start on amoxicillin 500 mg b.i.d. x5 days, doxycycline 100 mg b.i.d. x5 days. Continue pain management with Tylenol 650 Q 6. Continue wound care. Moderate vascular dementia w ithout behavioral disturbance, psychotic disturbance, mood disturbance, or anxiety 08/09/2022 Assessment & Plan (08/13/2022 6:45 AM SAW STRAIGHTENER): Patient is pleasantly confused. No behaviors. Slums 16/30. Continue Zoloft 100 mg daily. Continue supportive care. Patient need supervision and care after discharge Assessment & Plan (08/09/2022 6:58 PM SAW STRAIGHTENER): Patient is pleasantly confused. No behaviors. Slums 16/30. Continue Zoloft 100 mg daily. Continue supportive care. Patient need supervision and care after discharge Closed fracture of shaft of left humerus with routine healing 08/07/2022 Assessment & Plan (08/13/2022 6:42 AM SAW STRAIGHTENER): Due to fall. Imaging revealed left humeral shaft fracture, complicated with radial nerve palsy. Orthopedic managed conservatively with brace. SHAMIKA PRADHAN. Pain management with Tylenol 650 Q 6. Patient had follow-up with Dr. Thomas today. Recommended to continue Left arm brace, according to special instructions for placement and cleaning.Pt will be dc today to [facility]. Assessment & Plan (08/09/2022 6:51 PM SAW STRAIGHTENER): Pain overall controlled. Reminded patient that has follow-up with Dr. Thomas 08/11/2022. Daughter to provide transportation. Assessment & Plan (08/07/2022 6:17 AM SAW STRAIGHTENER): Due to fall. Imaging revealed left humeral shaft fracture, complicated with radial nerve palsy. Orthopedic managed conservatively with brace. SHAMIKA PRADHAN. Pain management with Tylenol 650 Q 6. Patient follow-up with Dr. Thomas on 08/11/22 for repeat imaging and treatment plan Paroxysmal A-fib 08/07/2022 Assessment & Plan (08/13/2022 6:43 AM SAW STRAIGHTENER): Patient developed paroxysmal AFib while inpatient, was started on metoprolol 25 mg b.i.d. and Eliquis 5 mg b.i.d., which later placed on hold due to GI Assessment & Plan (08/07/2022 6:18 AM SAW STRAIGHTENER): Patient developed paroxysmal AFib while inpatient, was started on metoprolol 25 mg b.i.d. and Eliquis 5 mg b.i.d., which later placed on hold due to GI Gastrointestinal hemorrhage with melena 08/07/19 Assessment & Plan (08/13/2022 6:46 AM SAW STRAIGHTENER): Patient was started on Eliquis for AFib, followed by acute blood loss anemia. Home med Plavix, Eliquis placed on hold. EGD done showed multiple gastric and duodenal ulcers. Status post blood transfusions. H pylori negative. Denies any melena or GI bleed now. Continue pantoprazole 40 mg b.i.d.. Avoid NSAIDs, AC till follow-up with GI. Assessment & Plan (08/07/2022 6:32 AM SAW STRAIGHTENER): Patient was started on Eliquis for AFib, [...] 08/07/2022 Assessment & Plan (08/13/2022 6:43 AM SAW STRAIGHTENER): 2/2 GIB (gastric, duodenal ulcers). Received blood transfusions. Hold NSAIDs, anticoagulants. CBC check a.m. Assessment & Plan (08/07/2022 6:20 AM SAW STRAIGHTENER): 2/2 GIB (gastric, duodenal ulcers). Received blood transfusions. Hold NSAIDs, anticoagulants. CBC check a.m. Acute kidney injury superimposed on chronic kidn ey disease 08/07/2022 Assessment & Plan (08/13/2022 6:45 AM SAW STRAIGHTENER): Baseline creatinine around 1. Was elevated while inpatient. Will hold chlorthalidone now, till BMP results. If creatinine elevated may consider holding lisinopril as well. Avoid nephrotoxic drugs. Monitor renal function Assessment & Plan (08/07/2022 6:30 AM SAW STRAIGHTENER): Baseline creatinine around 1. Was elevated while [...] 08/27/2021 Assessment & Plan (08/13/2022 6:45 AM SAW STRAIGHTENER): Patient currently asymptomatic. No seizure episode. Continue home med Keppra 750 mg b.i.d.. Will check Keppra level next labs. Assessment & Plan (08/07/2022 6:31 AM SAW STRAIGHTENER): Patient currently asymptomatic. No seizure episode. Continue home med Keppra 750 mg b.i.d.. Will check Keppra level next labs. Depressive disorder 08/27/2021 Assessment & Plan (08/13/2022 6:45 AM SAW STRAIGHTENER): Mood currently stable. Continue home med sertraline 100 mg daily. Assessment & Plan (08/07/2022 6:31 AM SAW STRAIGHTENER): Mood currently stable. Continue home med sertraline [...] 03/14/2019 Assessment & Plan (08/13/2022 6:44 AM SAW STRAIGHTENER): Continue Lipitor 40 mg daily, Zetia Assessment & Plan (08/07/2022 6:32 AM SAW STRAIGHTENER): Continue Lipitor 40 mg daily, Zetia Encounter for screening for cardiovascular disor ders 03/14/2019 Hypomagnesemia 03/14/2019 Palpitations 03/14/2019 Essential hypertension 03/08/2019 Assessment & Plan (08/13/2022 6:44 AM SAW STRAIGHTENER): Blood pressure and heart rate fluctuates. Continue amlodipine 10 mg, lisinopril 40 mg, metoprolol 25 mg b.i.d. added due to AFib while inpatient. Will hold down 25 mg for now due to elevated creatinine last labs. Monitor blood pressure, adjust meds accordingly. Assessment & Plan (08/07/2022 6:22 AM SAW STRAIGHTENER): Blood pressure and heart rate fluctuates. Continue [...] 04/28/2016 Assessment & Plan (08/13/2022 6:44 AM SAW STRAIGHTENER): A1c 6.6 a year ago. Continue Lantus 12 units bedtime, Tradjenta 5 mg, glipizide 5 mg. Will check A1c level next labs. Monitor Accu-Cheks Assessment & Plan (08/07/2022 6:26 AM SAW STRAIGHTENER): A1c 6.6 a year ago. Continue Lantus [...] Seizure d isorder Type 2 diabetes mellitus Diabete s type 2 Kidney disorder Kidney disease Hx [...] on file Legal Sex Female 3:49 AM SAW STRAIGHTENER Gender Identity Not on file Sexual Orientation [...] PCV) 05/17/2020 05/17/2019 Hemoglobin A1C 05/29/2023 11/26/2022, 12/, 08/28/2021, Additional history exists eGFR 11/06/2023 11/05/2022, 07/20, 08/28/2021, Additional history exists Fall Risk Assessment 03/09/2025 03/09/2024 Influenza Vaccine (#1) 2025 3, 05/10/2021, 05/10/2021, Additional history exists DTaP/Tdap/Td Vaccine (2 - Td or Tdap) 04/01/2032 04/01/2022 Colon Cancer Screening-FIT Discontinued 03/18/2018 Procedures Procedure Name Priority Date/Time Associated Diagnosis Comments EGFR STAT 11/05/2022 7:36 AM CDT Preop testing HEMOGLOBIN A1C Routine 08/28/2021 4:53 AM SAW STRAIGHTENER OCCULT BLOOD, FECAL (FIT) Routine 03/18/2018 8:45 [...] BLOOD ORDERABLES Final Re sult BLAYNE VIERA [address] [facility] Department [place] [address] * (ABNORMAL) Hemoglobin A1c (08/28/2021 4:53 AM SAW STRAIGHTENER) Hgb A1C 6.6(H) 4.0 - 5.6 % BLAYNE Comment:Testing performed by : [facility], [address] [place] [address]., [id number] Estimated Average Glucose 143 mg/dL BLAYNE Comment: The ADA recommends reporting an estimated Average Glucose (eAG) with all Hemoglobin A1c results using the equation derived from a study of 507 normal and diabetic adults. Minority populations were underrepresented and children were not included. (Diabetes Care 31:5922-4010, 2008). The eAG is not equivalent to a fasting glucose. Testing performed by: [facility], [address] [place] [address]., [id number] Blood 08/28/2021 4:53 AM SAW STRAIGHTENER 08/28/2021 5:00 AM SAW STRAIGHTENER Janet Guan DO LAB BLOOD ORDERABLES Final Re sult Performing Organization Address City/[facility]/ZIP Co de Phone Number [facility] [address] [facility] Department [place] [address] * Occult blood, fecal non neoplasm screening (03/18/2018 8:45 PM CDT) [facility] Stool Occult Blood POSITIVE NEGATIVE 03/18/2018 10:[address] [facility] HISTORICAL RESULTS 03/18/2018 8:45 PM CDT 03/18/2018 10:08 PM CDT Kassandra Saab NP LAB BODY FLUIDS AND STOOLS ORDER JIM Final Result [facility] HISTORICAL RESULTS * (ABNORMAL) TNI with LIPID PANEL (11/29/2016 3:21 PM CDT) [facility] Troponin I < 0.300 0.000 - 0.300 ng/mL 11/29/2016 3:[address] [facility] HISTORICAL RESULTS Comment: Reference using GEE Chemiluminescence Negative: Repeat in 4-6 hours as indicated. Triglycerides 124 0 - 199 mg/dL 11/29/2016 3:[address] [facility] HISTORICAL RESULTS Comment:12 hr pc [facility] mmended for Triglyceride Cholesterol 212(H) 0 - 199 mg/dL 11/29/2016 3:[address] [facility] HISTORICAL RESULTS Comment: Borderline: 200-239 High Risk: >239 HDL Cholesterol 82(H) 40 - 60 mg/dL 11/29/2016 3:[address] [facility] HISTORICAL RESULTS Comment: Major Risk < 40 mg/dL Moderate Risk 40-60 mg/dL Negative Risk > 60 mg/dL LDL Cholesterol, Calc 105 0 - 130 mg/dL 11/29/2016 3:[address] [facility] HISTORICAL RESULTS Comment:High Risk > 159 mg/d L Cholesterol/HDL Ratio 2.6 11/29/2016 3:[address] [facility] HISTORICAL RESULTS Comment: Cholesterol / HDL Ratio 3.5:1 or less is desirable. Cholesterol / HDL Ratio greater than 5:1 is considered higher risk for developing heart disease. 11/29/2016 3:21 PM CDT 11/29/2016 3:[address] [facility] HISTORICAL RESULTS - 11/29/2016 3:54 PM CDT us Lester Marcelino Mccann MD LAB BLOOD ORDERABLES Final Result [facility] HISTORICAL RESULTS from Last 3 Months or Most Recently Relevant to Health Maintenance Insurance MEDICARE MEDICARE IDSC IDSC MEDICARE Advance Directives For more information, please contact: [phone] * Full Code (Latest Code Status on File) Date Activated Date Inactivated Comments 11/05/2022 11:01 AM 11/05/2022 5:09 PM Healthcare Agents on File Name Relationship Healthcare Agent [facility] Communication Prakash Olson Friend [facility] Health Care Agent Care Teams Laborer Plumbing Relationship Specialty Start Date End Date Marcelino Gore PA [address] [place] [id number] PCP - General 09/08/19
--- OUTSIDE RECORDS SUMMARY | 2025-02-19 11:43 | XMS_ITS | Clinical Summary ---
Author Organization [facility] Address [facility] [place] [address] Care Team Providers Care Meat Pumper Name Role Phone Allie Sinclair PA-C Primary Care Provider [phone]- [phone] Allergies Active Allergy Reactions Criticality Noted Date Comments Aspartame Diarrhea 07/26/2022 Morphine Other (see comment) High 09/10/2023 Pt had bad experience: Acute drug intoxication - called EMS, almost had to complete temporary HD - went to [facility] Medications amlodipine 10 MG tablet [...] (5 mg total) by mouth daily. Active Senna (SENOKOT) 8.6 MG tablet Take 1 tablet (8.6 mg total) by mouth. Active levETIRAcetam (KEPPRA) 1000 MG tabletIndicatio ns:Seizure disorder (CMS/HCC HHS/HCC) Take 1 tablet (1,000 mg total) by mouth 2 (two) times daily. 180 tablet 3 5 Active lacosamide (VIMPAT) 100 MG TabIndications: Seizure disorder (CMS/HCC HHS/HCC) Take 1 tablet (100 mg total) by mouth 2 (two) times daily. 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 and Eliquis 5 mg b.i.d., which later placed on hold due to GI Tachycardia 07/11/2022 H/O: CVA (cerebrovascular accident) 07/08/2022 Altered mental status 07/07/2022 COVID-19 virus infection 08/27/2021 TIA (transient ischemic attack) 08/27/2021 Seizure disorder ([facility]) 10/26/2020 Hyperlipidemia 03/14/2019 Overview (02/13/2023): Last Assessment [...] mellitus wit h other diabetic kidney complication ([facility]) 04/28/2016 Overview (02/13/2023): Last Assessment & Plan: A1c 6.6 a year ago. Continue Lantus 12 units bedtime, Tradjenta 5 mg, glipizide 5 mg. Will check A1c level next labs. Monitor Accu-Cheks Encounters Date Type Department Care Team Description 02/08/2025 Telephone [facility] Multispecialty Care - [facility] [address] [facility], [address] [place] [phone] Justine Can MD Results 02/03/2025 Scan [facility] [place] [address] Scanned, [facility] 02/01/2025 10:42 AM CDT - 02/01/2025 11:59 PM CDT Hospital Encounter [facility] Outpatient Therapy [address] [facility] [place] [address] Allie Sinclair, Terese Bhatti, OTR Discharge Disposition: Home or Self Care (Routine Discharge) 02/01/2025 Travel 01/19/2025 [facility] [address], [address] [place] [phone] Justine Can MD Question 01/05/2025 Abstract [facility] [place] [address] Dalton Griffin MA 12/30/2024 Telephone [facility] [address] [place] [address] Jefry Tineo MD Information ([facility], Attn: Korin Green ([facility]) senior storage administrator) 12/01/2024 [facility] [address], [address] [place] [phone] Justine Can MD Medication 11/30/2024 Telephone [facility] Care - [address], [address] [place] [address] Justine Can MD Question from Last 3 Months Immunizations Immunization Administration [...] = 0.6 oz pur e alcohol) socially [facility] Utilities Answer Date Recorded In the past 12 months has th e [employer], gas, oil, or water [employer] threatened to shut off services in your [...] any time in the past 12 m [facility], were you homeless or living in a longterm (including now)? No 05/27/2024 Comments No Sex and Gender Information Value Date Recorded Sex Assigned at Female 09/20/2024 9:45 AM NEUROSCIENTIST Legal Sex Female 6:56 PM CDT Gender Identity Not on file Sexual Orientation Not on file Last Filed Vital Signs Vital Sign Reading Time Taken Comments Blood Pressure 129/72 10/11/2024 10:28 AM CDT Pulse 65 10/11/2024 10:28 AM CDT Temperature 36.1 C (96.9 F) 08/29/2024 10:39 AM NEUROSCIENTIST Respiratory Rate 16 08/29/2024 10:39 AM NEUROSCIENTIST Oxygen Saturation 98% 10/11/2024 10:28 AM CDT Inhaled Oxygen Concentration - - Weight 79.4 kg (175 lb) 10/11/2024 10:28 AM CDT Height 170.2 cm (5' 7) 09/20/2024 9:56 AM NEUROSCIENTIST Body Mass Index 27.41 09/20/2024 9:56 AM NEUROSCIENTIST Plan of Treatment Upcoming Encounters Date Type Department Care Team (Late st Contact Info) Description 02/20/2025 10:40 AM CDT [facility] - [address], [address] [place] [phone] Justine Can MD [address] [place] [address] 03/02/2025 10:20 AM CDT [facility] - [address], [address] [place] [address] Jutsine Can MD [address] [place] [address] 04/24/2025 1:30 PM CDT Office Visit [facility] [place] [address] Aaliyah Skelton, PAIN MANAGEMENT PHYSICIAN [address] [facility] [place] [address] Health Maintenance Due Date Last Done Comments ASCVD Statin 1955 Colorectal Cancer Screening Colonoscopy (10 Years) 1955 Kidney Health Evaluation 1954 Diabetes: Retinopathy Eye Exam 01/14/1972 Mammogram Screening 1994 Zoster Vaccines (1 of 2) 01/14/2004 RSV Immunization or 60+ Years (1 - Risk 60-74 years 1-dose series) 2014 Annual Medicare Wellness Visit 2019 Dexa Scan (General) 2019 Pneumococcal Vaccine: 50+ Years (2 of 2 - PCV) 05/17/2020 05/17/2019 COVID-19 Vaccine (3 - season) 2024 09/27/2020, 09/06/2020 Hemoglobin A1C 12/05/2024 06/07/2024, 05, 11/26/2022, Additional history exists Lipid Panel 06/07/2025 06/07/2024 DTaP, Tdap and Td Vaccines (2 - Td or Tdap) 04/01/2032 04/01/2022 Hepatitis C Completed 07/24/2022 PHQ-2 (Physician [place]) Completed 10/11/2024 Meningococcal B Vaccine Aged Out No l onger eligible based on patient's age to complete this topic Meningococcal Vaccine Aged Out No aidee jayne eligible based on patient's age to complete this topic RSV Immunizations Under 20 Months Aged Out No longer eligible based on patient's age to complete this topic Medical Devices Implanted Type Area Glazier Artist Device Identifier Shelf Expiration Date Model / Serial / Lot Plate Synthes 2.4 Va-Lcp Vlr Dist Radius 6h Hd/3h Shaft Right - [id number] Implanted:Qty: 1 on 11/24/2017 by Godwin Aguirre MD at [facility] Plate Right: Arm SYNTHES 11/24/2017 [id number] / / NA Screw Synthes 2.4 Locking Stardrive 14mm - [id number] Implanted:Qty: 2 on 11/24/2017 by Godwin Aguirre MD at [facility] Screw Right: Arm SYNTHES 11/24/2017 [id number] / / NA Screw Synthes 2.4 Locking Stardrive 16mm - [id number] Implanted:Qty: 1 on 11/24/2017 by Godwin Aguirre MD at [facility] Screw Right: Arm SYNTHES 11/24/2017 [id number] / / NA Screw Synthes 2.4 Locking Stardrive 18mm - [id number] Implanted:Qty: 1 on 11/24/2017 by Godwin Aguirre MD at [facility] Screw Right: Arm SYNTHES 11/24/2017 [id number] / / NA Screw Synthes 2.4 Locking Stardrive 20mm - [id number] Implanted:Qty: 1 on 11/24/2017 by Godwin Aguirre MD at [facility] Screw Right: Arm SYNTHES 11/24/2017 [id number] / / NA Screw Synthes 2.4 Locking Stardrive 18mm - [id number] Implanted:Qty: 1 on 11/24/2017 by Godwin Aguirre MD at [facility] Screw Right: Arm SYNTHES 11/24/2017 [id number] / / NA Screw Synthes 2.7 Cortical Self Tap 14mm - [id number] Implanted:Qty: 1 on 11/24/2017 by Godwin Aguirre MD at [facility] Right: Arm SYNTHES 11/24/2017 [id number] / / NA Screw Synthes 2.7 Cortical Self Tap 12mm - [id number] Implanted:Qty: 2 on 11/24/2017 by Godwin Aguirre MD at [facility] Right: Arm SYNTHES 11/24/2017 [id number] / / NA Explanted Type Area Glazier Artist Device Identifier Shelf Expiration Date Model / Serial / Lot Wire Synthes 1.5mm Jenn 150mm W/Trocar Point - [id number] Implanted:Qty: 1 Explanted:Qty: 1 on 11/24/2017 by Godwin Aguirre MD at [facility] Right: Arm SYNTHES 11/24/2017 [id number] / / NA Procedures Procedure Name Priority Date/Time Associated Diagnosis Comments LIPID PANEL Routine 06/07/2024 HEMOGLOBIN, GLYCOSYLATED Routine 06/07/2024 from Last 3 Months or Most Recently Relevant to Health Maintenance Results * HEMOGLOBIN, GLYCOSYLATED (06/07/2024) HGB A1C 6.1 % us Default History Genericprovider LABORATORY Final Result * LIPID PANEL (06/07/2024) CHOLESTEROL 141 TRIGLYCERIDES 86 HDL 61 LDL (CALCULATED) 63 us Default History Genericprovider LABORATORY Final Result from Last 3 Months or Most Recently Relevant to Health Maintenance Insurance MEDICARE Advance Directives Documents on File Type Date Recorded Patient Staff [employer] Officer Expl anation Advance Directives and Livin g Will 06/01/2024 3:14 PM * Full Code (Latest Code Status on File) Date Activated Date Inactivated Comments 05/26/2024 3:19 PM 05/31/2024 8:06 PM * Full Code Date Activated Date Inactivated Comments 03/15/2024 8:38 AM 03/19/2024 4:15 PM Healthcare Agents on File Name Relationship Healthcare Agent [facility] p Communication Claudia DEBBY Mohan Daughter Health Care Agent Estrella (1st Alt) Flach Relative First Alter edward Health Care Agent Care Teams Meat Pumper Relationship Specialty Start Date End Date Allie Sinclair, CASSANDRAC PCP - General PHYSICIAN LAST REPAIRER HELPER 01/29/23
--- OUTSIDE RECORDS SUMMARY | 2025-02-19 11:43 | XMS_ITS | Clinical Summary ---
Author Organization [facility] Address [address] [place] [address] Care Team Providers Care Facilities Manager Name Role Phone Allie Sinclair PA-C Primary Care Provider [phone] Source Comments [facility],non-owned Affiliates and Associated Physician Practices is amultiple site organization consisting of ambulatory clinics and hospital sitesin [place], [place], [place] and [place]. This disclosure is being madepursuant to the Care Everywhere program and may not contain all information available regarding this patient. Last updated 18.[facility] Allergies Active Allergy Reactions Criticality Noted Date Comments Artificial Sweeteners Diarrhea Medium 07/26/2022 Aspartame Diarrhea Medium 07/26/2022 Morphine Other High 09/10/2023 Pt had bad experience: Acute drug intoxication - called EMS, almost had to complete temporary HD - went to [facility] Medications * Be aware that medications [...] 09/10/2023 midazolam (Nayzilam) 5 MG/0.1ML nasal spray [place] 0.1 mL into the nose as needed for Seizures Lasting longer than 5 minutes. Can administer second dose in other nostril if seizure continues after 10 minutes. 4 Each 5 09/04/19 23 Active Additional Information Patient not taking.Reported on 11/07/2022 Cholecalciferol 1.25 MG (05660 UT) cholecalciferol (vitamin D3) 1,250 mcg (50,000 unit) capsule TAKE 1 CAPSULE BY MOUTH EVERY WEEK WITH FOOD Active saline nasal spray ([place]; Baby [place]) 0.65 % nasal spray [place] 1 (one) spray to 2 (two) sprays into each nostril every 2 hours as needed for Dry Nose 12/05/19 23 Active polyethylene glycol 3350 (Miralax) 17 g packet Take 17 (seventeen) g by mouth once daily as needed for Constipation 12/05/19 23 Active Additional Information Patient not taking.Reported on 09/10/2023 Farxiga 10 MG tablet Take 1 (one) tablet by mouth every morning 07/07/20 23 Active Blood Glucose Monitoring Suppl ([employer] Verio Flex System) w/Device KIT USE TO CHECK BLOOD SUGAR THREE TIMES DAILY 05/04/20 23 Active amLODIPine (Norvasc) 10 MG tablet Take 1 (one) tablet by mouth every morning 07/21/19 24 Active fenofibrate (Lofibra) 160 MG tablet TAKE 1 TABLET BY MOUTH EVERY DAY WITH MEALS 08/17/19 24 Active Pixafyuch Verio test strip USE TO CHECK BLOOD SUGAR TWICE DAILY 05/05/20 23 Active Lancets (AdCampTOUCH DELICA PLUS 33G EXTRA FINE LANCET) USE [...] and cleaning.Pt will be dc today to [facility]. 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 No 11/29/2022 Comments No Sex and Gender Information Value Date Recorded Sex Assigned at Not on file Legal Sex Female 6:40 AM ERGONOMIC SPECIALIST Gender Identity Not on file Sexual Orientation Not on file Last Filed Vital Signs Vital Sign Reading Time Taken Comments Blood Pressure 123/68 09/17/2023 3:50 PM ERGONOMIC SPECIALIST Pulse 68 09/17/2023 3:50 PM ERGONOMIC SPECIALIST Temperature 36.5 C (97.7 F) 09/17/2023 3:27 PM ERGONOMIC SPECIALIST Respiratory Rate 13 09/17/2023 3:50 PM ERGONOMIC SPECIALIST Oxygen Saturation 98% 09/17/2023 3:50 PM ERGONOMIC SPECIALIST Inhaled Oxygen Concentration 25% 07/23/2022 1 0:00 AM ERGONOMIC SPECIALIST Weight 90.9 kg (200 lb 6.4 oz) 09/17/2023 12:34 PM ERGONOMIC SPECIALIST Height 170.2 cm (5' 7) 09/17/2023 12:34 PM ERGONOMIC SPECIALIST Body Mass Index 31.39 09/17/2023 12:34 PM ERGONOMIC SPECIALIST Plan of Treatment Health Maintenance Due [...] SCREENING 07/12/2022 DIABETES-FOOT EXAM WITH MONOFILAMENT 07/12/2022 COVID-19 VACCINE ( - 2023- season) 2024 DEPRESSION SCREENING 07/20/2024 DIABETES - URINE PROTEIN SCREENING 07/20/2024 DIABETES-HGB A1C 09/07/2024 06/07/2024, 04/2023, 11/26/2022, Additional history exists INFLUENZA VACCINE (#1) 2025 , 05/10/2021, 05/17/2019, Additional history exists DIABETES-SERUM CREATININE 05/31/20252023, 05/31/2024, 05/30/2024, Additional history exists HEPATITIS C SCREENING Completed [...] this topic Medical Devices Implanted Type Area Community Recreation Programmer Device Identifier Shelf Expiration Date Model / Serial / Lot Parth Bone Void 5cc Dbm Allosync Ptty Implanted:Qty: 2 on 11/25/2022 by Robbie Mccann MD at [facility] Left: Humerus [employer] 04/23/2026 / / Screw 3.5mm 32mm T15 Slf-Tap Lck Tpr Implanted:Qty: 1 on 11/25/2022 by Robbie Mccann MD at [facility] Left: Humerus [employer] [id number] / / Screw 3.5mm 36mm T15 Slf-Tap Lck Tpr Implanted:Qty: 1 on 11/25/2022 by Robbie Mccann MD at [facility] Left: Humerus [employer] [id number] / / Screw 3.5mm 38mm T15 Slf-Tap Lck Tpr Implanted:Qty: 1 on 11/25/2022 by Robbie Mccann MD at [facility] Left: Humerus [employer] [id number] / / Screw 3.5mm 42mm T15 Lck Slf-Tap Tip Tpr Implanted:Qty: 1 on 11/25/2022 by Robbie Mccann MD at [facility] Left: Humerus [employer] [id number] / / Screw 3.5mm 46mm T15 Slf-Tap Lck Tpr Implanted:Qty: 1 on 11/25/2022 by Robbie Mccann MD at [facility] Left: Humerus [employer] [id number] / / Screw 3.5mm 48mm T15 Slf-Tap Lck Tpr Implanted:Qty: 1 on 11/25/2022 by Robbie Mccann MD at [facility] Left: Humerus [employer] [id number] / / Screw 3.5mm 46mm T15 Lck Mldir Nonster Implanted:Qty: 1 on 11/25/2022 by Robbie Mccann MD at [facility] Left: Humerus [employer] [id number] / / Graft Bone Infs Rhbmp-2 Bvn Clgn Lg 8ml Implanted:Qty: 1 on 11/25/2022 by Robbie Mccann MD at [facility] Left: Humerus [employer] 07/20/2024 [id number] / / [id number] Graft Bone Almtr Dbm Canc 5ml Algrf Ptty - [id number] Implanted:Qty: 1 on 11/25/2022 by Robbie Mccann MD at [facility] Left: Humerus [employer] 09/22/2023 [id number] / [id number] / Alps Proximal Humerus Low Plate Left 11 H, 190mm Implanted:Qty: 1 on 11/25/2022 by Robbie Mccann MD at [facility] Left: Humerus [id number] / / Screw 3.5mm 20mm T15 Lopro Nonlock Implanted:Qty: 3 on 11/25/2022 by Robbie Mccann MD at [facility] Left: Humerus [employer] [id number] / / Screw 3.5mm 22mm T15 Nonlock Lopro Implanted:Qty: 1 on 11/25/2022 by Robbie Mccann MD at [facility] Left: Humerus [employer] [id number] / / Screw 3.5mm 24mm T15 Nonlock Lopro Implanted:Qty: 1 on 11/25/2022 by Robbie Mccann MD at [facility] Left: Humerus [employer] [id number] / / Screw 3.5mm 32mm T15 Nonlock Lopro Implanted:Qty: 1 on 11/25/2022 by Robbie Mccann MD at [facility] Left: Humerus [employer] [id number] / / Explanted Type Area Community Recreation Programmer Device Identifier Shelf Expiration Date Model / Serial / Lot Screw 3.5mm 36mm T15 Slf-Tap Lck Tpr Explanted:Qty: 1 on 11/25/2022 by Robbie Mccann MD at [facility] Left: Humerus [employer] [id number] / / Screw 3.5mm 48mm T15 Slf-Tap Lck Tpr Explanted:Qty: 2 on 11/25/2022 by Robbie Mccann MD at [facility] Left: Humerus [employer] [id number] / / Wire K 2mm 152mm Top Tray Ss Fx Explanted:Qty: 4 on 11/25/2022 by Robbie Mccann MD at [facility] Left: Humerus [employer] [id number] / / Screw 3.5mm 24mm T15 Nonlock Lopro Explanted:Qty: 1 on 11/25/2022 by Robbie Mccann MD at [facility] Left: Humerus [employer] [id number] / / Procedures Procedure Name Priority Date/Time Associated Diagnosis Comments RENAL FUNCTION PANEL AM Draw 12/04/2022 2:46 AM CDT HEMOGLOBIN A1C Routine 11/26/2022 1:18 AM CDT Other fracture of shaft of left humerus, subsequent encounter for fracture with malunion HEPATITIS SCREEN ACUTE AM Draw 07/24/2022 4:12 AM ERGONOMIC SPECIALIST from Last 3 Months or Most Recently Relevant to Health Maintenance Results * (ABNORMAL) RENAL FUNCTION PANEL (12/04/2022 2:46 AM CDT) BUN 7 7 - 26 mg/dL 12/04/2022 4:03 AM [facility] Creatinine 0.98(H) 0.56 - 0.96 mg/dL 12/04/2022 4:03 AM [facility] Sodium 149(H) 136 - 145 mmol/L 12/04/2022 4:03 AM [facility] Potassium 4.4 3.5 - 4.5 mmol/L 12/04/2022 4:03 AM [facility] Chloride 112(H) 98 - 107 mmol/L 12/04/2022 4:03 AM [facility] CO2 18(L) 22 - 29 mmol/L 12/04/2022 4:03 AM [facility] Glucose 155(H) 70 - 115 mg/dL 12/04/2022 4:03 AM [facility] Albumin 2.6(L) 3.4 - 5.0 g/dL 12/04/2022 4:03 AM [facility] Calcium 9.0 8.4 - 10.2 mg/dL 12/04/2022 4:03 AM [facility] Phosphorus 3.7 2.9 - 5.1 mg/dL 12/04/2022 4:03 AM CDT [facility] Anion Gap 23(H) 8 - 18 12/04/2022 4:03 AM CDT [facility] BUN/Creatinine Ratio 7 7 - 23 12/04/2022 4:03 AM CDT [facility] Osmolality Calculated 309(H) 270 - 300 mOsm/kg 12/04/2022 4:03 AM CDT [facility] eGFR by CKD-EPI 63(L) >=90 mL/min/1.7 3 m2 12/04/2022 4:03 AM T [facility] Blood BLOOD SPECIMEN / Unknown Lab Venipuncture / Unknown 12/04/2022 2:46 AM CDT 12/04/2022 3:24 AM CDT Blaine Campo MD LAB - CHEMISTRY ORDERABLES Final Result [facility] [address] [place] [address], [facility] [phone] * (ABNORMAL) HEMOGLOBIN A1C (11/26/2022 1:18 AM CDT) Hemoglobin A1c 9.1(H) <=5.6 % 11/26/2022 1:26 PM T [facility] Estimated Average Glucose 214 mg/dL 11/26/2022 1:26 PM T [facility] Comment: HbA1c Interpretation: Normal : < 5.7% Pre-diabetes: 5.7-6.4% Diabetes: Equal to or greater than 6.5% Test results diagnostic of diabetes should be repeated for confirmation. Treatment target values recommended by ADA and other clinical organizations should be used to evaluate metabolic control in patients. Reference: [place] Diabetes Association, Standards of Care in Diabetes [...] LAB - CHEMISTRY ORDERABLES Mary l Result [facility] [address] [place] [address], [facility] [phone] * HEPATITIS SCREEN ACUTE (07/24/2022 4:12 AM ERGONOMIC SPECIALIST) Hepatitis A Virus Antibody IgM Non-react bartolome Non-reac tive 07/24/2022 5:11 AM ERGONOMIC SPECIALIST [facility] Hepatitis B Virus Surface Antigen Non-react bartolome Non-reac tive 07/24/2022 5:11 AM ERGONOMIC SPECIALIST [facility] Hepatitis B Core Virus Antibody IgM Non-react bartolome Non-reac tive 07/24/2022 5:11 AM ERGONOMIC SPECIALIST [facility] Hepatitis C Antibody Non-react bartolome Non-reac [...] Unknown Venipuncture / Unknown 07/24/2022 4:12 AM ERGONOMIC SPECIALIST 07/24/2022 4:37 AM ERGONOMIC SPECIALIST Sarabjit Gutierrez MD LAB - CHEMISTRY ORDERAB LES Final Result Performing Organization Address City/[facility]/ZIP Co de Phone Number [facility] [address] [place] [phone], [place] [phone] from Last 3 Months or Most Recently Relevant to Health Maintenance Insurance [address] [place] [address] MEDICARE MEDICAID - OUT OF STATE Advance Directives Documents on File Type Date Recorded Patient Ui Architect Expl anation Adv Directive/Living Will/POA 08/01/2022 11:56 [...] Martin Daughter Health Care Agent Care Teams Facilities Manager Relationship Specialty Start Date End Date Allie Sinclair PA-C [address] [place] [address] PCP - General 07/08/22
--- OUTSIDE RECORDS SUMMARY | 2025-02-19 11:43 | XMS_ITS | Encounter Summary ---
Author Organization [facility] Address [facility] [place] [address] Care Team Providers Care Service Desk Analyst Name Role Phone Allie Sinclair PA-C Primary Care Provider [phone] Encounter Details Date Type Department Care Team (Late st Contact Info) Description 01/05/2025 [facility] [address] [address] Griffin MA Social History Tobacco Use Types Packs/Day Years Used Date Smoking Tobacco: Never Passive Smoke Exposure: Never Smokeless Tobacco: Never Alcohol Use Standard Drinks/Week Comments Not Currently 0 (1 standard drink = 0.6 oz pur e alcohol) socially [facility] Utilities Answer Date Recorded In the past 12 months has [employer], gas, oil, or water [employer] threatened to shut off services in your [...] any time in the past 12 m [facility], were you homeless or living in a alf (including now)? No 05/27/2024 Comments No Sex and Gender Information Value Date Recorded Sex Assigned at Female 09/20/2024 9:45 AM MEDICAL EDUCATION COORDINATOR Legal Sex Female 6:56 PM CDT [...] Description 02/20/2025 10:40 AM CDT Office Visit [facility] - [address], [address] [phone] Justine Can MD [address] [place] [address] 03/02/2025 10:20 AM CDT Office Visit [facility] - [address], [address] [place] [phone] Justine Can MD [address] [place] [address] 04/24/2025 1:30 PM CDT Office Visit [facility] [address], [address] [place] [address] Aaliyah Skelton APRN [address], [facility] [address] [place] [address] documented as of this encounter Procedures Procedure Name Priority Date/Time Associated Diagnosis Comments HEMOGLOBIN, GLYCOSYLATED Routine 06/07/2024 COMPREHENSIVE METABOLIC PANEL Routine 06/07/2024 LIPID PANEL Routine 06/07/2024 CBC, MANUAL DIFF Routine 06/07/2024 THYROID STIM HORMONE TSH Routine 06/07/2024 documented in this encounter Results * (ABNORMAL) COMPREHENSIVE METABOLIC PANEL (06/07/2024) SODIUM S/P/B 144 GLUCOSE 89 mg/dL AST 27 BUN 24 CREATININE S/P/B 1.4(A) 0.5 - 1.0 CALCIUM S/P/B 9.5 POTASSIUM S/P/B 4.0 CHLORIDE S/P/B 108 ALT 18 GFR ESTIMATE 37 us Default History Genericprovider LABORATORY Final Result * LIPID PANEL (06/07/2024) CHOLESTEROL 141 TRIGLYCERIDES 86 HDL 61 LDL (CALCULATED) 63 us Default History Genericprovider LABORATORY Final Result * CBC, MANUAL DIFF (06/07/2024) WBC 7.5 HGB 12.5 HCT 38.5 PLT 230 us Default History Genericprovider LABORATORY Final Result * HEMOGLOBIN, GLYCOSYLATED (06/07/2024) HGB A1C 6.1 % us Default History Genericprovider LABORATORY Final Result * THYROID STIM HORMONE TSH (06/07/2024) TSH 3.408 us Default History Genericprovider LABORATORY Final Result documented in this encounter Visit Diagnoses Not on filedocumented in this encounter Care Teams Service Desk Analyst Relationship Specialty Start Date End Date Allie Sinclair PA-C PCP - General PHYSICIAN LICENSED CLINICAL SOCIAL WORKER 01/29/23 documented as of this encounter
--- OUTSIDE RECORDS SUMMARY | 2025-02-19 11:43 | XMS_ITS | Clinical Summary ---
Author Organization [facility] Address [address] [place] [address] Phone Care Team Providers Care Seam Presser Name Role Phone Allie Sinclair Primary Care Provider [phone] Allergies No known active allergies Medications atorvastatin (LIPITOR) 40 MG tablet Onee tablet at bedtime 0 6 Active acetaminophen (TYLENOL) 325 MG tablet Take 2 tablets by mouth in the morning and 2 tablets in the evening. Active metoprolol tartrate (LOPRESSOR) 25 MG tablet Take 25 mg by mouth every 12 (twelve) hours Active Cholecalciferol (Vitamin D3) 1.25 MG (96894 UT) capsule Take 50,000 Units by mouth [...] on file Legal Sex Female 7:35 AM [facility] Gender Identity Not on file Sexual [...] Encounters Date Type Department Care Team ([facility] Contact Info) Description 04/13/2025 1:20 PM CDT Office Visit [facility] [address] [place] [address] [address] [place] [address] Lizzeth Mohan, CADMIUM PLATER [address] [address] Health Maintenance Due Date Last Done Comments Diabetic Foot Exam 01/14/1964 Ophthalmology Exam 01/14/1964 Pneumococcal PPSV23/PCV13 65 + Years / High and Highest Risk (1 of 5 - PCV) 1973 Influenza Vaccine (#1) 2025 3, 05/10/2021, 05/17/2019, Additional history exists Insurance MEDICARE [facility] MEDICARE Care Teams Seam Presser Relationship Specialty Start Date End Date Allie Sinclair PA [address] [place] [address] PCP - General Family Medicine 11/08/24
--- OUTSIDE RECORDS SUMMARY | 2025-02-19 11:43 | XMS_ITS | Referral Summary ---
Author Organization [facility] [employer] [place] Address [address] [place] [id number] Care Team Providers Care Seafood Process Worker Name Role Phone Marcelino Gore Primary Care Provider + Allergies Active Allergy Reactions Criticality Noted Date Comments Aspartame Diarrhea Medium 07/26/2022 Morphine Other (See comments) High 09/10/2023 Pt had bad experience: Acute drug intoxication - called EMS, almost had to complete temporary HD - went to [facility] Medications acetaminophen (TYLENOL EXTRA STRENGTH) 500 [...] 1 tablet (5 mg total) by mouth doors prefitter before breakfast 4 Active fenofibrate (TRIGLIDE) 160 mg tabletIndication s:hyperlipidemia Take 1 tablet (160 mg total) by mouth doors prefitter before breakfast Active dapagliflozin propanediol (FARXIGA) 10 mg tabletIndication s:type 2 diabetes mellitus Take 1 tablet (10 mg total) by mouth doors prefitter before breakfast 3 Active aspirin 81 mg chewable tabletIndication s:prevention of thrombosis Take 1 tablet (81 mg total) by mouth doors prefitter before breakfast 2 Active amLODIPine (NORVASC) 10 mg tabletIndication s:hypertension Take 1 tablet (10 mg total) by mouth doors prefitter before breakfast 8 Active miconazole 2 % [...] Active Problems Problem Noted Date Diagnosed Date [place]-neck deformity of left finger(s) 02/25/2024 Left radial [...] 08/09/2022 Assessment & Plan (08/13/2022 6:43 AM SUPERVIS[employer]): Has erythema, warmth with more drainage. Will start on amoxicillin 500 mg b.i.d. x5 days, doxycycline 100 mg b.i.d. x5 days, started on 08/09/22. Continue pain management with Tylenol 650 Q 6. Continue wound care. Assessment & Plan (08/09/2022 6:49 PM [employer]): Has erythema, warmth with more drainage. Will start on amoxicillin 500 mg b.i.d. x5 days, doxycycline 100 mg b.i.d. x5 days. Continue pain management with Tylenol 650 Q 6. Continue wound care. Moderate vascular dementia w ithout behavioral disturbance, psychotic disturbance, mood disturbance, or anxiety 08/09/2022 Assessment & Plan (08/13/2022 6:45 AM [employer]): Patient is pleasantly confused. No behaviors. Slums 16/30. Continue Zoloft 100 mg daily. Continue supportive care. Patient need supervision and care after discharge Assessment & Plan (08/09/2022 6:58 PM [employer]): Patient is pleasantly confused. No behaviors. Slums 16/30. Continue Zoloft 100 mg daily. Continue supportive care. Patient need supervision and care after discharge Closed fracture of shaft of left humerus with routine healing 08/07/2022 Assessment & Plan (08/13/2022 6:42 AM [employer]PER[employer]): Due to fall. Imaging revealed left humeral shaft fracture, complicated with radial nerve palsy. Orthopedic managed conservatively with brace. SHAMIKA PRADHAN. Pain management with Tylenol 650 Q 6. Patient had follow-up with Dr. Thomas today. Recommended to continue Left arm brace, according to special instructions for placement and cleaning.Pt will be dc today to [facility]. Assessment & Plan (08/09/2022 6:51 PM [employer]PER[employer]): Pain overall controlled. Reminded patient that has follow-up with Dr. Thomas 08/11/2022. Daughter to provide transportation. Assessment & Plan (08/07/2022 6:17 AM [employer]PER[employer]): Due to fall. Imaging revealed left humeral shaft fracture, complicated with radial nerve palsy. Orthopedic managed conservatively with brace. SHAMIKA PRADHAN. Pain management with Tylenol 650 Q 6. Patient follow-up with Dr. Thomas on 08/11/22 for repeat imaging and treatment plan Paroxysmal A-fib 08/07/2022 Assessment & Plan (08/13/2022 6:43 AM SUPER[employer]): Patient developed paroxysmal AFib while inpatient, was started on metoprolol 25 mg b.i.d. and Eliquis 5 mg b.i.d., which later placed on hold due to GI Assessment & Plan (08/07/2022 6:18 AM [employer]PER[employer]): Patient developed paroxysmal AFib while inpatient, was started on metoprolol 25 mg b.i.d. and Eliquis 5 mg b.i.d., which later placed on hold due to GI Gastrointestinal hemorrhage with melena 08/07/19 Assessment & Plan (08/13/2022 6:46 AM SUPER[employer]): Patient was started on Eliquis for AFib, followed by acute blood loss anemia. Home med Plavix, Eliquis placed on hold. EGD done showed multiple gastric and duodenal ulcers. Status post blood transfusions. H pylori negative. Denies any melena or GI bleed now. Continue pantoprazole 40 mg b.i.d.. Avoid NSAIDs, AC till follow-up with GI. Assessment & Plan (08/07/2022 6:32 AM SUPER[employer]): Patient was started on Eliquis for AFib, [...] 08/07/2022 Assessment & Plan (08/13/2022 6:43 AM [employer]PER[employer]): 2/2 GIB (gastric, duodenal ulcers). Received blood transfusions. Hold NSAIDs, anticoagulants. CBC check a.m. Assessment & Plan (08/07/2022 6:20 AM [employer]PER[employer]): 2/2 GIB (gastric, duodenal ulcers). Received blood transfusions. Hold NSAIDs, anticoagulants. CBC check a.m. Acute kidney injury superimposed on chronic kidn ey disease 08/07/2022 Assessment & Plan (08/13/2022 6:45 AM SUPERVIS[employer]MENT): Baseline creatinine around 1. Was elevated while inpatient. Will hold chlorthalidone now, till BMP results. If creatinine elevated may consider holding lisinopril as well. Avoid nephrotoxic drugs. Monitor renal function Assessment & Plan (08/07/2022 6:30 AM SUPER[employer]MENT): Baseline creatinine around 1. Was elevated while [...] 08/27/2021 Assessment & Plan (08/13/2022 6:45 AM SUPER[employer]): Patient currently asymptomatic. No seizure episode. Continue home med Keppra 750 mg b.i.d.. Will check Keppra level next labs. Assessment & Plan (08/07/2022 6:31 AM SUPER[employer]): Patient currently asymptomatic. No seizure episode. Continue home med Keppra 750 mg b.i.d.. Will check Keppra level next labs. Depressive disorder 08/27/2021 Assessment & Plan (08/13/2022 6:45 AM [employer]PER[employer]MENT): Mood currently stable. Continue home med sertraline 100 mg daily. Assessment & Plan (08/07/2022 6:31 AM SUPER[employer]): Mood currently stable. Continue home med sertraline [...] 03/14/2019 Assessment & Plan (08/13/2022 6:44 AM SUPERVIS[employer]): Continue Lipitor 40 mg daily, Zetia Assessment & Plan (08/07/2022 6:32 AM SUPERVIS[employer]MENT): Continue Lipitor 40 mg daily, Zetia Encounter for screening for cardiovascular disor ders 03/14/2019 Hypomagnesemia 03/14/2019 Palpitations 03/14/2019 Essential hypertension 03/08/2019 Assessment & Plan (08/13/2022 6:44 AM SUPERVISOR [employer]MENT): Blood pressure and heart rate fluctuates. Continue amlodipine 10 mg, lisinopril 40 mg, metoprolol 25 mg b.i.d. added due to AFib while inpatient. Will hold down 25 mg for now due to elevated creatinine last labs. Monitor blood pressure, adjust meds accordingly. Assessment & Plan (08/07/2022 6:22 AM SUPERVISOR [employer]MENT): Blood pressure and heart rate fluctuates. Continue [...] 04/28/2016 Assessment & Plan (08/13/2022 6:44 AM SUPERVISOR [employer]MENT): A1c 6.6 a year ago. Continue Lantus 12 units bedtime, Tradjenta 5 mg, glipizide 5 mg. Will check A1c level next labs. Monitor Accu-Cheks Assessment & Plan (08/07/2022 6:26 AM SUPERVISOR [employer]MENT): A1c 6.6 a year ago. Continue Lantus [...] on file Legal Sex Female 3:49 AM [employer] Gender Identity Not on file Sexual Orientation [...] testing HEMOGLOBIN A1C Routine 08/28/2021 4:53 AM [employer]PER[employer] OCCULT BLOOD, FECAL (FIT) Routine 03/18/2018 8:45 [...] BLOOD ORDERABLES Final Re sult [facility] VIERA [address] [facility] [place] [address] * (ABNORMAL) Hemoglobin A1c (08/28/2021 4:53 AM SUPERVISOR [employer]MENT) [facility] Hgb A1C 6.6(H) 4.0 - 5.6 % BLAYNE Comment:Testing performed by : [address] [address] Estimated Average Glucose 143 mg/dL [facility]LAYNE Comment: The ADA recommends reporting an estimated Average Glucose (eAG) with all Hemoglobin A1c results using the equation derived from a study of 507 normal and diabetic adults. Minority populations were underrepresented and children were not included. (Diabetes Care 31:6157-2155, 2008). The eAG is not equivalent to a fasting glucose. Testing performed by: [facility], [address] [place] [address]., [id number] Blood 08/28/2021 4:53 AM [employer] 08/28/2021 5:00 AM [employer] Janet Guan DO LAB BLOOD ORDERABLES Final Re sult [facility] [address] [facility] [place] [address] * Occult blood, fecal non neoplasm screening (03/18/2018 8:45 PM CDT) [facility] Stool Occult Blood POSITIVE NEGATIVE 03/18/2018 8:45 PM CDT 03/18/2018 10:08 PM CDT Kassandra Saab NP LAB BODY FLUIDS AND STOOLS ORDER JIM Final Result [facility] HISTORICAL RESULTS * (ABNORMAL) TNI with LIPID PANEL (11/29/2016 3:21 PM CDT) [facility] Troponin I < 0.300 0.000 - [...] - 130 mg/dL 11/29/2016 3:54 PM CDT [facility] HISTORICAL RESULTS Comment:High Risk > 159 mg/d L Cholesterol/HDL Ratio 2.6 Comment: Cholesterol / HDL Ratio 3.5:1 or less is desirable. Cholesterol / HDL Ratio greater than 5:1 is considered higher risk for developing heart disease. 11/29/2016 3:21 PM CDT 11/29/2016 3:28 PM CDT Narrative [facility] HISTORICAL RESULTS - 11/29/2016 3:54 PM CDT us Lester Marcelino Mccann MD LAB BLOOD ORDERABLES Final Result [facility] HISTORICAL RESULTS from Last 3 Months or Most Recently Relevant to Health Maintenance Insurance [facility] MEDICARE MEDICARE IDIL IDIL MEDICARE Advance Directives For more information, please contact: [phone] * Full Code (Latest Code Status on File) Date Activated Date Inactivated Comments 11/05/2022 11:01 AM 11/05/2022 5:09 PM Healthcare Agents on File Name Relationship Healthcare Agent Relationsct p Communication Prakash Olson Friend Second Alternate Health Care Agent Care Teams Seafood Process Worker Relationship Specialty Start Date End Date Marcelino Gore PA [address] [place] [id number] PCP - General 09/08/19
[2025-02-19 11:50] LABS: INR 1.0; Prothrombin Time 13.7 Seconds (11.1-14.7)
[2025-02-19 11:51] LABS: Partial Thromboplastin Time 22.8 Seconds (22.3-36.8)
[2025-02-19 12:00] VITALS: BP 133/69; PULSE 82; RESP 20; O2SAT 98
[2025-02-19 12:21] LABS: Add Urine Microscopic? YES; Appearance Urine Cloudy (Clear); Glucose Urine UA Negative (Negative); Leukocyte Esterase Ur 2+ LEU/UL (Negative); Nitrate Urine Positive (Negative); Non Pathogenic Casts 0-2; Specific Grav Ur 1.015 (1.001-1.035)
[2025-02-19] MEDS: ASPIRIN 81 MG CHEWABLE TABLET PO (14:22)
[2025-02-19] MEDS: ACETAMINOPHEN 500 MG TABLET 1000 MG PO (14:23)
--- NOTE | 2025-02-19 14:25 | PC.NURSE ---
per pt daughter, she did not want the pt having the antibiotic at this time due to not wanting to wake up her mother in the middle of the night due to the antibiotic being Q12 hours. pt daughter said she will lease picker the prescription and start it tonight at 7pm and give her the next dose at 7am tmr.
== END 2025-02-19 14:26 | disposition home or self-care (01) ==
PROVIDERS: Emergency Provider Emergency Medicine; PCP Physician Assistant
DX: N39.0 Urinary tract infection, site not specified (principal); R41.82 Altered mental status, unspecified; F03.90 Unspecified dementia, unspecified severity, without behavioral disturbance, psychotic disturbance, mood disturbance, and anxiety; I48.91 Unspecified atrial fibrillation; I10 Essential (primary) hypertension; E11.21 Type 2 diabetes mellitus with diabetic nephropathy; E78.5 Hyperlipidemia, unspecified; E53.8 Deficiency of other specified B group vitamins; E55.9 Vitamin D deficiency, unspecified; G40.909 Epilepsy, unspecified, not intractable, without status epilepticus; K21.9 Gastro-esophageal reflux disease without esophagitis; F41.9 Anxiety disorder, unspecified; F32.A Depression, unspecified; Z86.73 Personal history of transient ischemic attack (TIA), and cerebral infarction without residual deficits; Z79.82 Long term (current) use of aspirin; Z79.899 Other long term (current) drug therapy; Z79.4 Long term (current) use of insulin; Z79.84 Long term (current) use of oral hypoglycemic drugs
CPT/HCPCS: 36415; 70450; 80053; 81001; 85025; 85610; 85730; 87086; 99284; A9270

== ENCOUNTER 2025-03-21 09:55 | Outpatient (RCR) | payer SELFPAY | END 2025-03-21 23:59 | disposition home or self-care (01) | LOC: ANHAUDIO 09:55 | PROVIDERS: PCP Physician Assistant; Visit Provider Physician Assistant | DX: Z46.1 Encounter for fitting and adjustment of hearing aid (principal) | CPT/HCPCS: V5160 ==

== ENCOUNTER 2025-05-04 04:58 | Emergency (ER) | payer MEDICARE, MEDICAID, SELFPAY ==
--- NOTE | ~2025-05-04 | XR_ITS ---
Examination: XR elbow LT min 3V, XR wrist LT min 3V, XR shoulder LT min 2V Clinical History: Left elbow pain status post fall Comparison: None Technique: 3 views left shoulder, 3 views left elbow, 3 views left wrist Findings/impression: Left shoulder: 1. No acute fracture or dislocation. 2. Humeral plate and screw intact. Left elbow: 1. No fracture or dislocation identified. Left wrist: 1. Impacted fracture distal radius with distal fragment dorsal angulation. 2. Ulnar styloid fracture. 3. Radiocarpal joint space narrowing. 4. Osteopenia. Reviewed, dictated and finalized at location R.
--- NOTE | ~2025-05-04 | CT_ITS ---
EXAMINATION: CT brain wo con DATE: 05/04/2025 07:01 INDICATION: Fall. TECHNIQUE: Computed tomography (CT) of the head was performed without intravenous contrast. The mA was adjusted according to patient size. Iterative reconstruction technique was employed. The dose-length product was 681.00 mGy-cm. COMPARISON: Head CT 02/19/2025 FINDINGS: There is an old infarct involving the right temporal parietal region. There is an old infarct in the left frontal lobe deep white matter. There are scattered areas of low attenuation in the cerebral white matter. There is no intracranial hemorrhage, acute infarction, or abnormal intracranial mass lesion. There is an old infarct in the right basal ganglia. The ventricles are normal in size. The orbits are normal. There is mild mucosal thickening in the ethmoid sinuses. The mastoid air cells are normal. IMPRESSION: 1. Old infarcts involving the right temporal parietal region, right basal ganglia, and left frontal lobe. 2. Stable moderate nonspecific cerebral white matter disease, which likely represents chronic small vessel ischemic disease. Reviewed, dictated and finalized at location E. IMPRESSION: 1. Old infarcts involving the right temporal parietal region, right basal gangl ia, and left frontal lobe. 2. Stable moderate nonspecific cerebral white matter disease, which likely repr esents chronic small vessel ischemic disease.
--- NOTE | ~2025-05-04 | CT_ITS ---
EXAMINATION: CT cervical spine wo con DATE: 05/04/2025 07:01 INDICATION: Neck pain. Fall. TECHNIQUE: Computed tomography (CT) of the cervical spine was performed without intravenous contrast. Automated exposure control and iterative reconstruction technique were employed. The dose-length product was 324.99 mGy-cm. COMPARISON: CT cervical spine 02/04/2022 FINDINGS: There is 2 mm anterolisthesis of C3 on C4 and 2 mm retrolisthesis of C4 on C5. Vertebral body heights are normal. There is severely decreased disc height at C4-C5, C5-C6, and C6-C7. There is multilevel severe uncovertebral joint and facet joint osteoarthritis. There is ankylosis of the facet joints at C2-C3. There is mild neural foraminal stenosis at multiple levels on either side. On the right, there is moderate neural foraminal stenosis at C5-C6. On the left, there is moderate neural foraminal stenosis at C4-C5 and C5-C6. There is mild central canal stenosis at C4-C5, C5-C6, and C6-C7. IMPRESSION: 1. No fracture. 2. Severe cervical spondylosis. Reviewed, dictated and finalized at location E.
--- NOTE | ~2025-05-04 | XR_ITS ---
EXAMINATION: XR wrist LT 2V, 05/04/2025 8:34 CDT HISTORY: S/P REDUCTION ATTEMPT COMPARISON: No comparisons available. Findings: Fractures of the distal radius and ulna noted which are slightly displaced. No significant degenerative changes. Soft tissue swelling. Impression: Fractures detailed above Reviewed, dictated and finalized at location P. Impression: Fractures detailed above
[2025-05-04 04:55] VITALS: BP 136/70; PULSE 61; RESP 20; TEMP 36.6; O2SAT 97
--- NOTE | 2025-05-04 05:16 | ED_ITS ---
HPI - General Adult General Chief complaint: Extremity Injury, Upper <John Bauman MD - Last Filed: 05/04/25 05:19> Stated complaint: L WRIST INJ <John Bauman MD - Last Filed: 05/04/25 05:19> Time Seen by Provider: 05/04/25 05:04 <John Bauman MD - Last Filed: 05/04/25 05:19> History of Present Illness HPI narrative: Patient 70-year-old female who presents emergency department with chief complaint of ground level fall. Patient reports that she lost her balance and fell patient does have prior history of dementia but normally is able answer all questions patient was given fentanyl EN route by EMS and the family noticed there is a deformity on the left wrist <John Bauman MD - Last Filed: 05/04/25 05:19> Related Data Home medications: Home Medications ?Medication ?Instructions ?Recorded ?Confirmed ?Last Taken ?Type acetaminophen 325 mg tablet 650 mg PO Q12H PRN fever o r pain 10/03/24 10/03/24 Unknown History sennosides 8.6 mg tablet (senna) 8.6 mg PO DAILY PRN c onstipation 10/03/24 10/03/24 Unknown History <John Bauman MD - Last Filed: 05/04/25 05:19> Allergies/adverse reactions: Allergies Allergy/AdvReac Type Severity Reaction Status Date / Time quetiapine (From Seroquel) Allergy Mild Nightmare Verified 05/04/25 05:11 metformin Allergy Unknown Unknown Verified 05/04/25 05:11 aspartame Allergy unknown Verified 05/04/25 05:11 insulin glargine (From Allergy unknown Verified 05/04/25 05:11 Lantus U-100 Insulin) morphine Allergy Unknown Verified 05/04/25 05:11 <John Bauman MD - Last Filed: 05/04/25 05:19> Review of Systems 2 Review of Systems: A 10 system review of systems was completed on the patient and is negative except for what is stated in the HPI. Nursing and ancillary documentation was reviewed. 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 and increased tone fingers of the left hand History of GI bleed Splenic varices Diabetic nephropathy Meckels diverticulum Duodenal ulcer Vitamin B12 deficiency Vitamin D deficiency CAD (coronary artery disease) Hyperlipidemia Type 2 diabetes mellitus Essential hypertension Seizure disorder GERD (gastroesophageal reflux disease) History of hemorrhagic cerebrovascular accident (CVA) without residual deficits Atrial fibrillation <John Bauman MD - Last Filed: 05/04/25 05:19> Surgical History Surgical History: Surgical History History of tonsillectomy and adenoidectomy Status post open reduction and internal fixation (ORIF) of fracture Left wrist and hand History of carpal tunnel release Left <John Bauman MD - Last Filed: 05/04/25 05:19> Family History Family History: Family History Sibling Cerebrovascular accident Hypertension Kidney disease Father Bladder cancer Heart disease Hypertension Mother Hypertension Kidney disease <John Bauman MD - Last Filed: 05/04/25 05:19> Social History Social History: Social History Social History: Code status: Full code Power of real estate associate attorney for healthcare: Claudia Mohan (daughter) Smoking status: Never smoker Second hand tobacco smoke exposure: No Alcohol intake: former Alcohol use details: The patient used to on occasion drink 1 alcoholic beverage a month. Substance use: never Spiritual care concerns: No <John Bauman MD - Last Filed: 05/04/25 05:19> Exam 2 Narrative: GENERAL: Well-appearing, well-nourished, and in no acute distress. HEAD: Normocephalic, atraumatic. EYES: PERRLA and EOMI. ENT: Nares clear, no rhinorrhea or epistaxis. Mucous membranes moist. NECK: Supple. Cervical spine tenderness present on the midline of the C-spine CHEST: Clear to auscultation. No respiratory distress. HEART: Regular rate and rhythm. No murmur heard. Normal peripheral pulses. ABDOMEN: Soft, nontender, nondistended, normal active bowel sounds. EXTREMITIES: Normal range of motion deformity present to the left distal wrist. No edema. SKIN: Warm, dry, no rash. NEURO: No focal deficits. Alert and oriented x3. PSYCH: Normal mood and affect. <Kt Sanches MD - Last Filed: 05/25/25 17:46> Course Course Emergency Course: GENERAL: Well-appearing, well-nourished, and in no acute distress. HEAD: Normocephalic, atraumatic. EYES: PERRLA and EOMI. ENT: Nares clear, no rhinorrhea or epistaxis. Mucous membranes moist. NECK: Supple. Cervical spine tenderness present on the midline of the C-spine CHEST: Clear to auscultation. No respiratory distress. HEART: Regular rate and rhythm. No murmur heard. Normal peripheral pulses. ABDOMEN: Soft, nontender, nondistended, normal active bowel sounds. EXTREMITIES: Normal range of motion deformity present to the left distal wrist. No edema. SKIN: Warm, dry, no rash. NEURO: No focal deficits. Alert and oriented x3. PSYCH: Normal mood and affect. <John Bauman MD - Last Filed: 05/04/25 05:19> 06:00 - This patient was signed out to me by previous ED physician, Dr. Bauman pending imaging. 10:15 - X-ray of the elbow, and shoulder were not concerning for fracture or dislocation. CT head and CT cervical spine negative for intracranial hemorrhage, skull fracture or cervical spine fracture. X-ray of the wrist showed a displaced radius and fracture. The patient's arm was reduced and placed in a sugar-tong splint and with good alignment by my review. Will discharge with pain medications and orthopedic surgery follow-up. I discussed the findings and recommendations with patient and her daughter. Discussed return and emergency precautions including signs/symptoms of septic arthritis and neurovascular compromise. The patient and her daughter voiced understanding and agreement with the plan. All questions answered to their satisfaction. <Kt Sanches MD - Last Filed: 05/25/25 17:46> Vital Signs Vital signs: Vital Signs Temperature 97.8 F 05/04/25 04:55 Pulse Rate 61 05/04/25 04:55 Respiratory Rate 20 05/04/25 04:55 Blood Pressure 136/70 05/04/25 04:55 Pulse Oximetry 97 05/04/25 04:55 Oxygen Delivery Room Air 05/04/25 04:55 Temperature 97.8 F 05/04/25 04:55 Pulse Rate 66 05/04/25 10:35 Respiratory Rate 16 05/04/25 10:35 Blood Pressure 116/64 05/04/25 10:35 Pulse Oximetry 98 05/04/25 10:35 Oxygen Delivery Room Air 05/04/25 04:55 <John Bauman MD - Last Filed: 05/04/25 05:19> Vital Signs Temperature 97.8 F 05/04/25 04:55 Pulse Rate 61 05/04/25 04:55 Respiratory Rate 20 05/04/25 04:55 Blood Pressure 136/70 05/04/25 04:55 Pulse Oximetry 97 05/04/25 04:55 Oxygen Delivery Room Air 05/04/25 04:55 Temperature 97.8 F 05/04/25 04:55 Pulse Rate 66 05/04/25 10:35 Respiratory Rate 16 05/04/25 10:35 Blood Pressure 116/64 05/04/25 10:35 Pulse Oximetry 98 05/04/25 10:35 Oxygen Delivery Room Air 05/04/25 04:55 <Kt Sanches MD - Last Filed: 05/25/25 17:46> Procedures Orthopedic Fracture Reduction Fracture #1: Fracture Reduction date: 05/04/25 <Kt Sanches MD - Last Filed: 05/25/25 17:46> Fracture Reduction time: 08:50 <Kt Sanches MD - Last Filed: 05/25/25 17:46> Time Out Performed: Yes <Kt Sanches MD - Last Filed: 05/25/25 17:46> Side: left <Kt Sanches MD - Last Filed: 05/25/25 17:46> Fracture Reduction Location: radius <Kt Sanches MD - Last Filed: 05/25/25 17:46> Analgesia: none <Kt Sanches MD - Last Filed: 05/25/25 17:46> Pre-Procedure Neuro Vascular Exam: normal <Kt Sanches MD - Last Filed: 05/25/25 17:46> Technique: other ([place] sling) <Kt Sanches MD - Last Filed: 05/25/25 17:46> Post Reduction X-rays Demonstrate: acceptable reduction <Kt Sanches MD - Last Filed: 05/25/25 17:46> Post-reduction neuro exam: intact <Kt Sanches MD - Last Filed: 05/25/25 17:46> Post-reduction vascular exam: intact <Kt Sanches MD - Last Filed: 05/25/25 17:46> Splint Applied: Yes <Kt Sanches MD - Last Filed: 05/25/25 17:46> Patient Tolerated Procedure: well <Kt Sanches MD - Last Filed: 05/25/25 17:46> Orthopedic Splinting/Casting Injury #1: Splinting/Casting Date: 05/04/25 <Kt Sanches MD - Last Filed: 05/25/25 17:46> Splinting/Casting Time: 09:45 <Kt Sanches MD - Last Filed: 05/25/25 17:46> Side: left <Kt Sanches MD - Last Filed: 05/25/25 17:46> Upper Extremity Injury Location: upper arm <Kt Sanches MD - Last Filed: 05/25/25 17:46> Splint: customized in ED <Kt Sanches MD - Last Filed: 05/25/25 17:46> OCL: sugar tong <Kt Sanches MD - Last Filed: 05/25/25 17:46> Pre-Procedure Neuro Vascular Exam: normal <Kt Sanches MD - Last Filed: 05/25/25 17:46> Post-Procedure Neuro Vascular Exam: normal <Kt Sanches MD - Last Filed: 05/25/25 17:46> Medical Decision Making MDM Narrative Medical decision making narrative: Plan: Imaging, pain control, reassess <Kt Sanches MD - Last Filed: 05/25/25 17:46> Differential Diagnosis Differential Diagnosis: Distal radius fracture, distal ulna fracture, intracranial hemorrhage, skull fracture, cervical spine fracture, shoulder fracture, elbow fracture, contusion, other <Kt Sanches MD - Last Filed: 05/25/25 17:46> Vital Signs Vital Signs: Vital Signs Temperature 97.8 F 05/04/25 04:55 Pulse Rate 61 05/04/25 04:55 Respiratory Rate 20 05/04/25 04:55 Blood Pressure 136/70 05/04/25 04:55 Pulse Oximetry 97 05/04/25 04:55 Oxygen Delivery Room Air 05/04/25 04:55 Temperature 97.8 F 05/04/25 04:55 Pulse Rate 66 05/04/25 10:35 Respiratory Rate 16 05/04/25 10:35 Blood Pressure 116/64 05/04/25 10:35 Pulse Oximetry 98 05/04/25 10:35 Oxygen Delivery Room Air 05/04/25 04:55 <John Bauman MD - Last Filed: 05/04/25 05:19> Vital Signs Temperature 97.8 F 05/04/25 04:55 Pulse Rate 61 05/04/25 04:55 Respiratory Rate 20 05/04/25 04:55 Blood Pressure 136/70 05/04/25 04:55 Pulse Oximetry 97 05/04/25 04:55 Oxygen Delivery Room Air 05/04/25 04:55 Temperature 97.8 F 05/04/25 04:55 Pulse Rate 66 05/04/25 10:35 Respiratory Rate 16 05/04/25 10:35 Blood Pressure 116/64 05/04/25 10:35 Pulse Oximetry 98 05/04/25 10:35 Oxygen Delivery Room Air 05/04/25 04:55 <Kt Sanches MD - Last Filed: 05/25/25 17:46> Lab Data Result diagrams: 05/04/25 05:45 05/04/25 05:45 <John Bauman MD - Last Filed: 05/04/25 05:19> Labs: Lab Results 05/04/25 Range/Units 05:45 WBC 9.3 (4.5-10.0) K/mm3 RBC 4.29 (4.2-5.4) M/mm3 Hgb 12.8 (12.0-15.0) g/dL Hct 41.4 (37.0-47.0) % MCV 96.5 (80-100) fl MCH 29.8 (26-34) pg MCHC 30.9 L (32-36) g/dl RDW 13.4 (11.5-14.5) % Plt Count 202 (150-375) k/mm3 MPV 11.6 H (7.4-10.4) fl Immature Gran % (Auto) 0.4 (0-0.5) % Neut % (Auto) 73.8 H (45.5-73.1) % Lymph % (Auto) 14.5 L (18.3-44.2) % Cottle % (Auto) 8.5 (2.6-8.5) % Eos % (Auto) 1.8 (0-4.4) % Baso % (Auto) 1.0 (0.2-1.2) % Lymph # (Auto) 1.34 (0.9-3.2) K/mm3 Cottle # (Auto) 0.8 H (0.1-0.6) K/mm3 Eos # (Auto) 0.2 (0-0.3) K/mm3 Baso # (Auto) 0.1 (0.0-0.1) K/mm3 Abs Immat Gran (auto) 0.04 H (0.00-0.031) K/mm3 Absolute Neuts (auto) 6.8 H (1.3-6.7) K/mm3 Absolute Nucleated RBC 0.000 (0.0-0.012) K/mm3 Nucleated RBC % 0.0 (0.0-0.2) % Sodium 140 (137-145) mmol/L Potassium 4.6 (3.4-5.0) mmol/L Chloride 107 (98-107) mmol/L Carbon Dioxide 24 (22-30) mmol/L Anion Gap 9 (4-12) mmol/L BUN 31 H (7-17) mg/dL Creatinine 1.10 H (0.7-1.0) mg/dL Estim Creat Clear Calc 42 ml/min Estimated GFR 49 L (59 - ) Glucose 150 H (65-110) mg/dL Calcium 9.5 (8.4-10.2) mg/dL Total Bilirubin 0.9 (0.2-1.3) mg/dL AST 45 H (14-36) U/L ALT 23 (6-35) U/L Alkaline Phosphatase 44 (38-126) U/L Total Protein 7.6 (6.3-8.2) g/dL Albumin 4.2 (3.5-5.1) g/dL <John Bauman MD - Last Filed: 05/04/25 05:19> Lab Results 05/04/25 Range/Units 05:45 WBC 9.3 (4.5-10.0) K/mm3 RBC 4.29 (4.2-5.4) M/mm3 Hgb 12.8 (12.0-15.0) g/dL Hct 41.4 (37.0-47.0) % MCV 96.5 (80-100) fl MCH 29.8 (26-34) pg MCHC 30.9 L (32-36) g/dl RDW 13.4 (11.5-14.5) % Plt Count 202 (150-375) k/mm3 MPV 11.6 H (7.4-10.4) fl Immature Gran % (Auto) 0.4 (0-0.5) % Neut % (Auto) 73.8 H (45.5-73.1) % Lymph % (Auto) 14.5 L (18.3-44.2) % Cottle % (Auto) 8.5 (2.6-8.5) % Eos % (Auto) 1.8 (0-4.4) % Baso % (Auto) 1.0 (0.2-1.2) % Lymph # (Auto) 1.34 (0.9-3.2) K/mm3 Cottle # (Auto) 0.8 H (0.1-0.6) K/mm3 Eos # (Auto) 0.2 (0-0.3) K/mm3 Baso # (Auto) 0.1 (0.0-0.1) K/mm3 Abs Immat Gran (auto) 0.04 H (0.00-0.031) K/mm3 Absolute Neuts (auto) 6.8 H (1.3-6.7) K/mm3 Absolute Nucleated RBC 0.000 (0.0-0.012) K/mm3 Nucleated RBC % 0.0 (0.0-0.2) % Sodium 140 (137-145) mmol/L Potassium 4.6 (3.4-5.0) mmol/L Chloride 107 (98-107) mmol/L Carbon Dioxide 24 (22-30) mmol/L Anion Gap 9 (4-12) mmol/L BUN 31 H (7-17) mg/dL Creatinine 1.10 H (0.7-1.0) mg/dL Estim Creat Clear Calc 42 ml/min Estimated GFR 49 L (59 - ) Glucose 150 H (65-110) mg/dL Calcium 9.5 (8.4-10.2) mg/dL Total Bilirubin 0.9 (0.2-1.3) mg/dL AST 45 H (14-36) U/L ALT 23 (6-35) U/L Alkaline Phosphatase 44 (38-126) U/L Total Protein 7.6 (6.3-8.2) g/dL Albumin 4.2 (3.5-5.1) g/dL <Kt Sanches MD - Last Filed: 05/25/25 17:46> Discharge Plan Discharge Clinical Impression: Closed fracture distal radius and ulna, Arm pain, left <John Bauman MD - Last Filed: 05/04/25 05:19> Patient Disposition: Home <John Bauman MD - Last Filed: 05/04/25 05:19> Condition: Stable <John Bauman MD - Last Filed: 05/04/25 05:19> Instructions: Antibiotic Form, Wrist Fracture in Adults (ED) <John Bauman MD - Last Filed: 05/04/25 05:19> Additional Instructions: You were seen in the emergency department. A CT scan of the head and neck were negative for fracture or bleeding in the brain. X-rays of the shoulder and elbow were not concerning for fractures the x-ray of the left wrist showed a fracture. This was reduced and placed in a splint. I recommend following up with an orthopedic surgeon. If you develop severe joint pain with swelling and fevers, the hand/fingers appears blue/cold, or if you have other emergent concerns for life, limb, or eyesight, return to the emergency department. <John Bauman MD - Last Filed: 05/04/25 05:19> Patient Language: Citizen Of [place] <John Bauman MD - Last Filed: 05/04/25 05:19> Prescriptions: New hydrocodone-acetaminophen 5-325 mg tablet 1 tablet PO Q8H PRN (Reason: severe pain (scale score 7-10)) Qty: 9 0RF No Action cefuroxime axetil 500 mg tablet 500 mg PO BID Qty: 14 0RF sennosides [senna] 8.6 mg tablet 8.6 mg PO DAILY PRN (Reason: constipation) acetaminophen 325 mg tablet 650 mg PO Q12H PRN (Reason: fever or pain) atorvastatin 40 mg Tablet 40 mg PO DAILY 30 Days Qty: 30 1RF amlodipine 10 mg Tablet 10 mg PO QAM 30 Days Qty: 30 1RF fluoxetine 10 mg capsule 10 mg PO DAILY 30 Days Qty: 0 1RF aspirin [Children's Aspirin] 81 mg Tablet,Chewable 81 mg PO DAILY@0800 30 Days Qty: 30 1RF metoprolol tartrate 25 mg Tablet 25 mg PO Q12HR 30 Days Qty: 60 1RF fenofibrate 160 mg tablet 160 mg PO DAILY 30 Days Qty: 0 1RF cholecalciferol (vitamin D3) 1,250 mcg (50,000 unit) Capsule 1,000 unit PO DAILY 30 Days Qty: 0 1RF insulin glargine [Basaglar KwikPen U-100 Insulin] 100 unit/mL (3 mL) insulin pen 20 unit subcut QHS 30 Days Qty: 15 1RF levetiracetam [Keppra] 500 mg Tablet 1,000 mg PO Q12HR 30 Days Qty: 30 1RF Tradjenta 5 mg tablet 5 mg PO DAILY 30 Days Qty: 30 1RF lacosamide 100 mg tablet 100 mg PO BID 30 Days Qty: 60 1RF fluoxetine 10 mg tablet 10 mg PO DAILY Qty: 30 1RF lacosamide 100 mg tablet 100 mg PO Q12H 30 Days Qty: 60 1RF ciprofloxacin HCl [Cipro] 500 mg tablet 500 mg PO Q12H 7 Days Qty: 14 0RF <John Bauman MD - Last Filed: 05/04/25 05:19> Follow-up/Referrals: Yahir,ZURI Kelley [Primary Care Provider, Unknown] Taran Arcos MD [Physician, Orthopedics] - 1 Week Referral Note: Distal radius and ulna fracture <John Bauman MD - Last Filed: 05/04/25 05:19> Time of Disposition: 10:15 <John Bauman MD - Last Filed: 05/04/25 05:19> 10:15 <Kt Sanches MD - Last Filed: 05/25/25 17:46> Sign Out Sign Out Data: Patient Sign Out occurred on 05/04/25 at 06:11. Patient's care was discussed, and care was transferred from John Bauman MD to Kt Sanches MD. <John Bauman MD - Last Filed: 05/04/25 05:19>
[2025-05-04 05:54] LABS: Hematocrit 41.4 % (37.0-47.0); Hemoglobin 12.8 g/dL (12.0-15.0); Immature Granulocyte Percent A 0.4 % (0-0.5); Lymphocytes Absolute Auto 1.34 K/mm3 (0.9-3.2); Mean Corpuscular HGB Conc 30.9 g/dl (32-36); Mean Corpuscular Hemoglobin 29.8 pg (26-34); Mean Corpuscular Volume 96.5 fl (80-100); Nucleated Red Blood Cells Absolute Auto 0.000 K/mm3 (0.0-0.012); Nucleated Red Blood Cells Perc 0.0 % (0.0-0.2); Platelet Count Result 202 k/mm3 (150-375); Red Blood Count 4.29 M/mm3 (4.2-5.4); White Blood Count 9.3 K/mm3 (4.5-10.0)
[2025-05-04 06:18] LABS: Alanine Aminotransferase 23 U/L (6-35); Albumin Level 4.2 g/dL (3.5-5.1); Alkaline Phosphatase 44 U/L (38-126); Anion Gap 9 mmol/L (4-12); Aspartate Amino Transferase 45 U/L (14-36); Bilirubin,Total 0.9 mg/dL (0.2-1.3); Blood Urea Nitrogen 31 mg/dL (7-17); Calcium 9.5 mg/dL (8.4-10.2); Carbon Dioxide 24 mmol/L (22-30); Chloride 107 mmol/L (98-107); Estimated CRCL calculation 42 ml/min; Estimated Glomerular Filt Rate 49; Glucose 150 mg/dL (65-110); Potassium 4.6 mmol/L (3.4-5.0); Sodium 140 mmol/L (137-145); Total Protein 7.6 g/dL (6.3-8.2)
[2025-05-04 06:30] VITALS: BP 101/67; PULSE 59; RESP 17; O2SAT 97
[2025-05-04 07:15] VITALS: BP 127/61; PULSE 61; RESP 16; O2SAT 100
[2025-05-04 08:15] VITALS: BP 120/66; PULSE 63; RESP 16; O2SAT 97
[2025-05-04] MEDS: fentaNYL CITRATE INJ (*CRX) 100 MCG/2 ML VIAL 50 MCG IV PUSH ×2 (08:21→10:02)
--- NOTE | 2025-05-04 08:25 | PC.NURSE ---
[place] SLING PLACED ON LEFT ARM BY DR PARKER. 2LB WEIGHT AND 2 1L BAGS ON NS PLACED ON DEVICE FOR COUNTER WEIGHT
[2025-05-04 10:35] VITALS: BP 116/64; PULSE 66; RESP 16; O2SAT 98
== END 2025-05-04 10:35 | disposition home or self-care (01) ==
PROVIDERS: Emergency Medicine; Emergency Provider Preventive Medicine Aerospace Medicine; PCP Physician Assistant
DX: S52.502A Unspecified fracture of the lower end of left radius, initial encounter for closed fracture (principal); S52.612A Displaced fracture of left ulna styloid process, initial encounter for closed fracture; F03.90 Unspecified dementia, unspecified severity, without behavioral disturbance, psychotic disturbance, mood disturbance, and anxiety; I10 Essential (primary) hypertension; I25.10 Atherosclerotic heart disease of native coronary artery without angina pectoris; I48.91 Unspecified atrial fibrillation; E11.21 Type 2 diabetes mellitus with diabetic nephropathy; E53.8 Deficiency of other specified B group vitamins; E55.9 Vitamin D deficiency, unspecified; E78.5 Hyperlipidemia, unspecified; G40.909 Epilepsy, unspecified, not intractable, without status epilepticus; K21.9 Gastro-esophageal reflux disease without esophagitis; Z86.73 Personal history of transient ischemic attack (TIA), and cerebral infarction without residual deficits; Z79.82 Long term (current) use of aspirin; Z79.4 Long term (current) use of insulin; Z79.899 Other long term (current) drug therapy; Z79.84 Long term (current) use of oral hypoglycemic drugs; W18.39XA Other fall on same level, initial encounter; M47.812 Spondylosis without myelopathy or radiculopathy, cervical region; R90.82 White matter disease, unspecified
CPT/HCPCS: 25605; 29125; 36415; 70450; 72125; 73030; 73080; 73100; 73110; 80053; 85025; 96374; 96376; 99284; 99285; A4565; J3010

== ENCOUNTER 2025-05-12 10:24 | Emergency (ER) | payer MEDICARE, MEDICAID, SELFPAY ==
[2025-05-12] VITALS (12 sets, daily range): BP systolic 114–139; BP diastolic 59–77; PULSE 58–70; RESP 10–20; TEMP 36.8; O2SAT 96–100
--- OUTSIDE RECORDS SUMMARY | 2025-05-12 10:46 | XMS_ITS | Encounter Summary ---
Author Organization [facility] Address [address] [place] [address] Care Team Providers Care Hog Scraper Name Role Phone Allie Sinclair PA-C Primary Care Provider Encounter Details Date Type Department Care Team ([facility] st Contact Info) Description 03/03/2025 Telephone [facility] [place] [address] [facility] Update Information Social History Tobacco Use Types Packs/Day Years [...] and heating? Not hard at all 11/29/2022 [facility] - Occupational Stress [...] place to sleep or slept in a alf (including now)? No 11/29/2022 Comments No Sex and Gender Information Value Date Recorded Sex Assigned at Not on file Legal Sex Female 6:40 AM SOCIAL MEDIA COORDINATOR Gender Identity Not on file Sexual Orientation Not on file documented as of this encounter Functional Status * Is person deaf or have serious hearing difficulty? Answer Date of Assessment Author Yes 12/04/2022 10:17 AM CDMayo Weems RN * Is person blind or have serious difficulty seeing? Answer Date of Assessment Author No 12/04/2022 10:17 AM Mayo Zamora RN * Does person have serious difficulty walking/climbing stairs? Answer Date of Assessment Author Yes 12/04/2022 10:17 AM CDT Mayo Lord RN * Does person have difficulty dressing/bathing? Answer Date of Assessment Author Yes 12/04/2022 10:17 AM ERENDIRAT Mayo Lord RN * Does person have difficulty doing errands alone? Answer Date of Assessment Author Yes 12/04/2022 10:17 AM Mayo Zamora RN documented as of this encounter Mental Status * Does person have difficulty concentrating/remembering/making decisions? Answer Entry Date Author No 12/04/2022 10:17 AM CDMarnie maher Eshe, RN documented in this encounter Miscellaneous Notes * Telephone Encounter - AkbarChaseRadha - 03/03/2025 8:18 AM CDT Current Provider: Vale Britton or Kwaku Reason for Call: Good morning, I have spoke to Dr. Lewis about this patient now, Please schedule with CASSIA with the next available new patient appointment Tanisha Collazo NP Or Phoebe KEATING Or Grace Perry BILLET RECORDER Called back and got vm, left a message to call us back to schedule. Patient Call Back Number: [phone] documented in this encounter Plan of Treatment Upcoming Encounters Date Type Department Care Team (Late st Contact Info) Description 07/06/2025 1:00 PM SOCIAL MEDIA COORDINATOR Office Visit [facility] - Neurology [address] [facility], [facility] [place] [address] Tanisha Collazo, LAND ACQUISITION ANALYST-DIRECTOR OF CONTENT MARKETING [address] [place] [address] documented as of this encounter Visit Diagnoses Not on filedocumented in this encounter Care Teams Hog Scraper Relationship Specialty Start Date End Date Allie Sinclair PA-C [address] [place] [id number] PCP - General 07/08/22 documented as of this encounter
--- OUTSIDE RECORDS SUMMARY | 2025-05-12 10:46 | XMS_ITS | Encounter Summary ---
Author Organization [facility] Address [address] [place] [id number] Phone Care Team Providers Care Yarder Boss Name Role Phone Allie Sinclair Primary Care Provider [phone] Reason for Visit * Reason Comments Med Refill Encounter Details Date Type Department Care Team ([facility] Contact Info) Description 08/21/2024 Refill [facility] [address] [phone] Lizzeth Mohan NP [address] [phone] Social History Tobacco Use Types Packs/Day Years [...] Upcoming Encounters Date Type Department Care Team ([facility] Contact Info) Description 09/04/2025 3:00 PM CONSERVATION ASSISTANT Office Visit [facility] [address] [facility] [address] [place], [place] [phone] Lizzeth Mohan NP [address] [phone] documented as of this encounter Visit Diagnoses Not on filedocumented in this encounter Care Teams Yarder Boss Relationship Specialty Start Date End Date Allie Sinclair PA [address] [place], [place] [phone] PCP - General Family Medicine 11/08/24 documented as of this encounter
--- OUTSIDE RECORDS SUMMARY | 2025-05-12 10:46 | XMS_ITS | Clinical Summary ---
Author Organization [facility] Address [address] [place] [phone] Phone Care Team Providers Care Stump Blower Name Role Phone Allie Sinclair Primary Care Provider [phone] Allergies No known active allergies Medications atorvastatin (LIPITOR) 40 MG tablet Onee tablet at bedtime 0 04/28/20 16 Active acetaminophen (TYLENOL) 325 MG tablet Take 2 tablets by mouth every 12 (twelve) hours if needed Active metoprolol tartrate (LOPRESSOR) 25 MG tablet Take 25 mg by mouth every 12 (twelve) hours Active Cholecalcifero l (Vitamin D3) 1.25 MG (75962 UT) capsule Take 50,000 Units by mouth per week Active amLODIPine (NORVASC) 10 MG tablet Take 10 mg by mouth 1 (one) time each day Active aspirin 81 MG chewable tablet Chew 81 mg 1 (one) time each day Active fenofibrate [...] MG tablet Take 1,000 mg by mouth every 12 (twelve) hours Active insulin glargine (Basaglar KwikPen) 100 UNIT/ML injection Inject 20 Units under the skin every night Active senna (SENOKOT) 8.6 MG tablet Take 1 tablet by mouth 1 (one) time each day if needed for constipation Active ciprofloxacin (CIPRO) 500 MG tablet Take 500 mg by mouth every 12 (twelve) hours Active sertraline (ZOLOFT) 50 MG tablet Take 50 mg by mouth 1 (one) time each day Active Dapagliflozin Propanediol 10 MG tablet Take 10 mg by mouth 1 (one) time each day 025 Discontinued FLUoxetine (PROzac) 20 MG capsule Take 20 mg by mouth 1 (one) time each day 025 Discontinued Active Problems Problem Noted Date Diagnosed Date Urinary tract infectious disease 11/09/2024 Secondary hyperparathyroidism of renal origin Hypertensive chronic kidney disease with stage 1 through stage 4 chronic kidney disease, or unspecified chronic kidney disease 04/28/2016 Stage 3a chronic kidney disease 04/28/2016 Type 2 diabetes mellitus wit h other diabetic kidney complication 04/28/2016 Resolved Problems Problem Noted Date Diagnosed Date Resolved Date Candidiasis of skin 11/09/2024 04/13/20 25 Other retention of urine 05/04/2020 Encounters Date Type Department Care Team Description 04/20/2025 11:20 AM CDT Office Visit [facility] [address] [place] [phone] Lizzeth Mohan NP Stage 3a chronic kidney disease (Primary Dx); Type 2 diabetes mellitus with other diabetic kidney complication, not otherwise specified; Secondary hyperparathyroidism of renal origin; Hypertensive chronic kidney disease with stage 1 through stage 4 chronic kidney disease, or unspecified chronic kidney disease 04/12/2025 Orders Only [facility] [address] [place] [id number] Lizzeth Mohan NP from Last 3 Months [...] Sign Reading Time Taken Comments Blood Pressure 109/66 04/20/2025 11:16 AM CDT Pulse 72 04/20/2025 11:16 AM CDT Temperature - - Respiratory Rate - - Oxygen Saturation 98% 03/12/2023 1:47 PM CDT Inhaled Oxygen Concentration - - Weight 71.7 kg (158 lb) 04/20/2025 11:16 AM CDT Height 170.2 cm (5' 7) 04/20/2025 11:16 AM CDT Body Mass Index 24.75 04/20/2025 11:16 AM CDT Plan of Treatment Upcoming Encounters Date Type Department Care Team (Late st Contact Info) Description 09/04/2025 3:00 PM SCRATCH BRUSHER Office Visit [facility] [address] [facility] 1 [place] [address] Lizzeth Mohan NP [address] [facility] 1 [place] [address] Health Maintenance Due Date Last Done Comments Diabetic Foot Exam 01/14/1964 Ophthalmology Exam 01/14/1964 Pneumococcal PPSV23/PCV13 65 + Years / High and Highest Risk (1 of 5 - PCV) 1973 Influenza Vaccine (#1) 2025 3, 05/10/2021, 05/17/2019, Additional history exists Procedures Procedure Name Priority Date/Time Associated Diagnosis Comments PTH, INTACT Routine 04/12/2025 10:15 AM CDT [facility] CKD PROGRAM Routine 04/12/2025 10:15 AM CDT ALBUMIN / CREATININE RATIO, RANDOM, URINE Routine 04/12/2025 10:15 AM CDT RENAL FUNCTION PANEL Routine 04/12/2025 10:15 AM CDT MICROSCOPIC EXAMINATION Routine 04/12/2025 10:15 AM CDT URINALYSIS ROUTINE W/ REFLEX MICROSCOPIC Routine 04/12/2025 10:15 AM CDT CBC (INCLUDES DIFFERENTIAL/PLATELE TS) Routine 04/12/2025 10:15 AM CDT from Last 3 Months Results * PTH, Intact (04/12/2025 10:15 AM CDT) PTH, Intact, Serum/Plasma 17 15 - 65 pg/mL [facility] 1 04/12/2025 10:1 5 AM CDT 04/11/2025 11:00 PM CDT Narrative [facility] - 04/13/2025 2:10 PM CDT Performed at: [address] [id number] Net Maker: Kvng Roca PhD, Phone: [phone] us Lizzeth Mohan FELT FINISHER LAB BLOOD ORDERABLES Final Resu lt Performing Organization Address [facility] Co de Phone Number [facility] * (ABNORMAL) Albumin/Creatinine Ratio, Random, Urine (04/12/2025 10:15 AM CDT) Creatinine, Urine 151.4 Not Estab. mg/dL [facility] 1 Microalbumin, Urine 105.0 Not Estab. ug/mL [facility] 1 Albumin/Creatini ne, Urine 69(H) 0 - 29 mg/g creat [facility] 1 Comment: Normal: 0 - 29 Moderately increased: 30 - 300 Severely increased: >300 04/12/2025 10:1 5 AM CDT 04/11/2025 11:00 PM CDT Narrative [facility] - 04/13/2025 2:10 PM CDT Performed at: [address] [id number] Net Maker: Kvng Roca PhD, Phone: [phone] us Lizzeth Mohan NP LAB URINE ORDERABLES Final Resu lt Performing Organization Address [facility] Co de Phone Number [facility] * LithoLink CKD Program (04/12/2025 10:15 AM CDT) Interpretation Note [facility] 2 Comment:Supplemental report is available. PDF Image . [facility] 2 04/12/2025 10:1 5 AM CDT 04/11/2025 11:00 PM CDT Narrative [facility] - 04/13/2025 2:10 PM CDT Performed at: [address] [place] [address] Clinical / Digital [address] [place] [id number] Net Maker: Shayy Zimmerman MD, Phone: [phone] us Lizzeth Mohan FELT FINISHER LAB BLOOD ORDERABLES Final Resu lt Performing Organization Address [facility] Co de Phone Number [facility] 2 * (ABNORMAL) Microsopic Examination (04/12/2025 10:15 AM CDT) Leukocytes, Urine sediment None seen 0 - 5 /hpf [facility] 1 Erythrocytes, Urine sediment None seen 0 - 2 /hpf [facility] 1 Epithelial cells, Urine sediment 0-10 0 - 10 /hpf [facility] 1 Casts, Urine sediment Present(A) None seen /lpf [facility] 1 Casts, Urine sediment Hyaline casts N/A [facility] 1 Bacteria, Urine sediment None seen None seen/Few [facility] 1 04/12/2025 10:1 5 AM CDT 04/11/2025 11:00 PM CDT Narrative [facility] - 04/13/2025 2:10 PM CDT Performed at: [address] [place] [id number] Net Maker: Kvng Roca PhD, Phone: [phone] us Lizzeth Mohan FELT FINISHER LAB BLOOD ORDERABLES Final Resu lt Performing Organization Address [facility] Co de Phone Number [facility] 1 * (ABNORMAL) CBC (includes Differential/Platelets) (04/12/2025 10:15 AM CDT) Leukocytes, Blood 12.1(H) 3.4 - 10.8 x10E3/uL [facility] 1 Erythrocytes (RBC) 4.09 3.77 - 5.28 x10E6/uL [facility] 1 Hemoglobin (HGB) 12.2 11.1 - 15.9 g/dL [facility] 1 Hematocrit (HCT) 38.5 34.0 - 46.6 % [facility] 1 MCV 94 79 - 97 fL [facility] 1 MCH 29.8 26.6 - 33.0 pg [facility] 1 MCHC 31.7 31.5 - 35.7 g/dL [facility] 1 Erythrocyte Distribution Width (RDW) 12.6 11.7 - 15.4 % [facility] 1 Platelets, Blood 216 150 - 450 x10E3/uL [facility] 1 Neutrophils/100 leukocytes, Blood 76 Not Estab. % [facility] 1 Lymphocytes/100 leukocytes, Blood 12 Not Estab. % [facility] 1 Monocytes/100 leukocytes, Blood 10 Not Estab. % [facility] 1 Eosinophils/100 leukocytes, Blood 1 Not Estab. % [facility] 1 Basophils/100 leukocytes, Blood 0 Not Estab. % [facility] 1 Neutrophils, Blood 9.3(H) 1.4 - 7.0 x10E3/uL [facility] 1 Lymphocytes, Blood 1.4 0.7 - 3.1 x10E3/uL [facility] 1 Monocytes, Blood 1.2(H) 0.1 - 0.9 x10E3/uL [facility] 1 Eosinophils, Blood 0.1 0.0 - 0.4 x10E3/uL [facility] 1 Basophils, Blood 0.1 0.0 - 0.2 x10E3/uL [facility] 1 Immature granulocytes/100 leukocytes, Blood 1 Not Estab. % [facility] 1 Immature granulocytes, Blood 0.1 0.0 - 0.1 x10E3/uL [facility] 1 04/12/2025 10:1 5 AM CDT 04/11/2025 11:00 PM CDT [facility] - 04/13/2025 2:10 PM CDT Performed at: 01 - [facility] [id number] Net Maker: Kvng Roca PhD, Phone: [phone] us Lizzeth Mohan NP LAB BLOOD ORDERABLES Final Resu lt [facility] * (ABNORMAL) Renal Function Panel (RFP) (04/12/2025 10:15 AM CDT) Glucose, Serum/Plasma 145(H) 70 - 99 mg/dL [facility] 1 Urea nitrogen, Serum/Plasma (BUN) 29(H) 8 - 27 mg/dL [facility] 1 Creatinine, Serum/Plasma 1.30(H) 0.57 - 1.00 mg/dL [facility] 1 Estimated Glomerular Filtration Rate (eGFR) 44(L) >59 mL/min/1.7 3 [facility] 1 Urea nitrogen/Creati nine, Serum/Plasma 22 12 - 28 [facility] 1 Sodium, Serum/Plasma 142 134 - 144 mmol/L [facility] 1 Potassium, Serum/Plasma 3.8 3.5 - 5.2 mmol/L [facility] 1 Chloride, Serum/Plasma 104 96 - 106 mmol/L [facility] 1 Carbon dioxide CO2), total, Serum/Plasma 24 20 - 29 mmol/L [facility] 1 Calcium, Serum/Plasma 10.0 8.7 - 10.3 mg/dL [facility] 1 Phosphate, Serum/Plasma 3.5 3.0 - 4.3 mg/dL [facility] 1 Albumin, Serum/Plasma 4.0 3.8 - 4.8 g/dL [facility] 1 04/12/2025 10:1 5 AM CDT 04/11/2025 11:00 PM CDT Narrative [facility] - 04/13/2025 2:10 PM CDT Performed at: 01 - [facility] [id number] Net Maker: Kvng Roca PhD, Phone: [phone] us Lizzeth Mohan FELT FINISHER LAB BLOOD ORDERABLES Final Resu lt [facility] * (ABNORMAL) Urinalysis, Routine W/ Reflex Microscopic (04/12/2025 10:15 AM CDT) Pathologist [facility] Specific gravity of Urine 1.019 1.005 - 1.030 [facility] 1 pH of Urine 5.5 5.0 - 7.5 [facility] 1 Color of Urine Yellow Yellow [facility] 1 Appearance of Urine Clear Clear [facility] 1 Leukocyte esterase, Urine Trace(A) Negative [facility] 1 Protein, Urine 1+(A) Negative/Tra ce [facility] 1 Glucose, Urine Negative Negative [facility] 1 Ketones, Urine Negative Negative [facility] 1 Hemoglobin, Urine Negative Negative [facility] 1 Bilirubin, total, Urine Negative Negative [facility] 1 Urobilinogen, Urine 0.2 0.2 - 1.0 mg/dL [facility] 1 Nitrite, Urine Negative Negative [facility] 1 Microscopic Examination See below: [facility] 1 Comment:Microscopic was thomas cated and was performed. 04/12/2025 10:1 5 AM CDT 04/11/2025 11:00 PM CDT Narrative [facility] - 04/13/2025 2:10 PM CDT Performed at: - [facility] [id number] Net Maker: Kvng Roca PhD, Phone: [phone] us Lizzeth Mohan NP LAB URINE ORDERABLES Final Resu lt [facility] 1 from Last 3 Months Insurance MEDICARE [facility] MEDICARE Care Teams Stump Blower Relationship Specialty Start Date End Date Allie Sinclair PA [address] [place] [phone] PCP - General Family Medicine 11/08/24
--- OUTSIDE RECORDS SUMMARY | 2025-05-12 10:46 | XMS_ITS | Clinical Summary ---
Author Organization [facility] Address [address] [place] [address] Care Team Providers Care Sales Development Manager Name Role Phone Allie Sinclair PA-C Primary Care Provider Source Comments [facility],non-owned Affiliates and Associated Physician Practices is amultiple site organization consisting of ambulatory clinics and hospital sitesin [place], [place], [place] and [place]. This disclosure is being madepursuant to the Care Everywhere program and may not contain all information available regarding this patient. Last updated 18.[facility] Allergies Active Allergy Reactions Criticality Noted Date Comments Artificial Sweeteners Diarrhea Medium 07/26/2022 Aspartame Diarrhea Medium 07/26/2022 Morphine Other High 09/10/2023 Pt had bad experience: Acute drug intoxication - called EMS, almost had to complete temporary HD - went to [facility] Medications * Be aware that [...] 09/10/2023 midazolam (Nayzilam) 5 MG/0.1ML nasal spray [place] 0.1 mL into the nose as needed for Seizures Lasting longer than 5 minutes. Can administer second dose in other nostril if seizure continues after 10 minutes. 4 Each 5 09/04/19 23 Active Additional Information Patient not taking.Reported on 11/07/2022 Cholecalciferol 1.25 MG (50126 UT) cholecalciferol (vitamin D3) 1,250 mcg (50,000 unit) capsule TAKE 1 CAPSULE BY MOUTH EVERY WEEK WITH FOOD Active saline nasal spray ([place]; Baby Dewitt) 0.65 % nasal spray [place] 1 (one) spray to 2 (two) sprays [...] 07/07/20 23 Active Blood Glucose Monitoring Suppl (TradeYa Verio Flex System) w/Device KIT USE TO CHECK BLOOD SUGAR THREE TIMES DAILY 05/04/20 23 Active amLODIPine (Norvasc) 10 MG tablet Take 1 (one) tablet by mouth every morning 07/21/19 24 Active fenofibrate (Lofibra) 160 MG tablet TAKE 1 TABLET BY MOUTH EVERY DAY WITH MEALS 08/17/19 24 Active Aionexuch Verio test strip USE TO CHECK BLOOD SUGAR TWICE DAILY 05/05/20 23 Active Lancets (SeniorlinkTOUCH DELICA PLUS 33G EXTRA FINE LANCET) USE [...] and cleaning.Pt will be dc today to [facility]. 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 Not hard at all 11/29/2022 [facility] Occupat ional Health - Occupational Stress [...] place to sleep or slept in a mcc (including now)? No 11/29/2022 Comments No Sex and Gender Information Value Date Recorded Sex Assigned at Not on file Legal Sex Female 6:40 AM APPLICATIONS SUPPORT ENGINEER Gender Identity Not on file Sexual Orientation Not on file Last Filed Vital Signs Vital Sign Reading Time Taken Comments Blood Pressure 123/68 09/17/2023 3:50 PM APPLICATIONS SUPPORT ENGINEER Pulse 68 09/17/2023 3:50 PM APPLICATIONS SUPPORT ENGINEER Temperature 36.5 C (97.7 F) 09/17/2023 3:27 PM APPLICATIONS SUPPORT ENGINEER Respiratory Rate 13 09/17/2023 3:50 PM APPLICATIONS SUPPORT ENGINEER Oxygen Saturation 98% 09/17/2023 3:50 PM APPLICATIONS SUPPORT ENGINEER Inhaled Oxygen Concentration 25% 07/23/2022 1 0:00 AM APPLICATIONS SUPPORT ENGINEER Weight 90.9 kg (200 lb 6.4 oz) 09/17/2023 12:34 PM APPLICATIONS SUPPORT ENGINEER Height 170.2 cm (5' 7) 09/17/2023 12:34 PM APPLICATIONS SUPPORT ENGINEER Body Mass Index 31.39 09/17/2023 12:34 PM APPLICATIONS SUPPORT ENGINEER Plan of Treatment Upcoming Encounters Date Type Department Care Team (Late st Contact Info) Description 07/06/2025 1:00 PM APPLICATIONS SUPPORT ENGINEER Office Visit [facility] - Neurology [address] [facility] [place] [address] Tanisha Collazo, STORM SASH MAKER-CURRICULUM DIRECTOR [address] [place] [address] Health Maintenance Due Date Last Done Comments [...] SCREENING 07/12/2022 DIABETES-FOOT EXAM WITH MONOFILAMENT 07/12/2022 DEPRESSION SCREENING 07/20/2024 DIABETES - URINE PROTEIN SCREENING 07/20/2024 DIABETES-HGB A1C 09/07/2024 06/07/2024, 04/2023, 11/26/2022, Additional history exists COVID-19 VACCINE ( - 2023- season) 2025 INFLUENZA VACCINE (#1) 2025 , 05/10/2021, 05/17/2019, [...] this topic Medical Devices Implanted Type Area Agency Sales Representative Device Identifier Shelf Expiration Date Model / Serial / Lot Parth Bone Void 5cc Dbm Allosync Ptty Implanted:Qty: 2 on 11/25/2022 by Robbie Mccann MD at [facility] Left: Humerus [employer] 04/23/2026 / / Screw 3.5mm 32mm T15 Slf-Tap Lck Tpr Implanted:Qty: 1 on 11/25/2022 by Robbie Mccann MD at [facility] Left: Humerus [employer] [id number] / / Screw 3.5mm 36mm T15 Slf-Tap Lck Tpr Implanted:Qty: 1 on 11/25/2022 by Robbie Mccann MD at [facility] Left: Humerus [employer] [id number] / / Screw 3.5mm 38mm T15 Slf-Tap Lck Tpr Implanted:Qty: 1 on 11/25/2022 by Robbie Mccann MD at [facility] Left: Humerus [employer] [id number] / / Screw 3.5mm 42mm T15 Lck Slf-Tap Tip Tpr Implanted:Qty: 1 on 11/25/2022 by Robbie Mccann MD at [facility] Left: Humerus [employer] [id number] / / Screw 3.5mm 46mm T15 Slf-Tap Lck Tpr Implanted:Qty: 1 on 11/25/2022 by Robbie Mccann MD at [facility] Left: Humerus [employer] [id number] / / Screw 3.5mm 48mm T15 Slf-Tap Lck Tpr Implanted:Qty: 1 on 11/25/2022 by Robbie Mccann MD at [facility] Left: Humerus [employer] [id number] / / Screw 3.5mm 46mm T15 Lck Mldir Nonster Implanted:Qty: 1 on 11/25/2022 by Robbie Mccann MD at [facility] Left: Humerus [employer] [id number] / / Graft Bone Infs Rhbmp-2 Bvn Clgn Lg 8ml Implanted:Qty: 1 on 11/25/2022 by Robbie Mccann MD at [facility] Left: Humerus [employer] 07/20/2024 [id number] / / [id number] Graft Bone Almtr Dbm Canc 5ml Algrf Ptty - [id number] Implanted:Qty: 1 on 11/25/2022 by Robbie Mccann MD at [facility] Left: Humerus [employer] 09/22/2023 [id number] / [id number] / Alps Proximal Humerus Low Plate Left 11 H, 190mm Implanted:Qty: 1 on 11/25/2022 by Robbie Mccann MD at [facility] Left: Humerus [id number] / / Screw 3.5mm 20mm T15 Lopro Nonlock Implanted:Qty: 3 on 11/25/2022 by Robbie Mccann MD at [facility] Left: Humerus [employer] [id number] / / Screw 3.5mm 22mm T15 Nonlock Lopro Implanted:Qty: 1 on 11/25/2022 by Robbie Mccann MD at [facility] Left: Humerus [employer] [id number] / / Screw 3.5mm 24mm T15 Nonlock Lopro Implanted:Qty: 1 on 11/25/2022 by Robbie Mccann MD at [facility] Left: Humerus [employer] [id number] / / Screw 3.5mm 32mm T15 Nonlock Lopro Implanted:Qty: 1 on 11/25/2022 by Robbie Mccann MD at [facility] Left: Humerus [employer] [id number] / / Explanted Type Area Agency Sales Representative Device Identifier Shelf Expiration Date Model / Serial / Lot Screw 3.5mm 36mm T15 Slf-Tap Lck Tpr Explanted:Qty: 1 on 11/25/2022 by Robbie Mccann MD at [facility] Left: Humerus [employer] [id number] / / Screw 3.5mm 48mm T15 Slf-Tap Lck Tpr Explanted:Qty: 2 on 11/25/2022 by Robbie Mccann MD at [facility] Left: Humerus [employer] [id number] / / Wire K 2mm 152mm Top Tray Ss Fx Explanted:Qty: 4 on 11/25/2022 by Robbie Mccann MD at [facility] Left: Humerus [employer] [id number] / / Screw 3.5mm 24mm T15 Nonlock Lopro Explanted:Qty: 1 on 11/25/2022 by Robbie Mccann MD at [facility] Left: Humerus [employer] [id number] / / Procedures Procedure Name Priority Date/Time Associated Diagnosis Comments RENAL FUNCTION PANEL AM Draw 12/04/2022 2:46 AM CDT HEMOGLOBIN A1C Routine 11/26/2022 1:18 AM CDT Other fracture of shaft of left humerus, subsequent encounter for fracture with malunion HEPATITIS SCREEN ACUTE AM Draw 07/24/2022 4:12 AM APPLICATIONS SUPPORT ENGINEER from Last 3 Months or Most Recently Relevant to Health Maintenance Results * (ABNORMAL) RENAL FUNCTION PANEL (12/04/2022 2:46 AM CDT) BUN 7 7 - 26 mg/dL 12/04/2022 4:03 AM CDT [facility] Creatinine 0.98(H) 0.56 - 0.96 mg/dL 12/04/2022 4:03 AM CDT [facility] Sodium 149(H) 136 - 145 mmol/L 12/04/2022 4:03 AM CDT [facility] Potassium 4.4 3.5 - 4.5 mmol/L 12/04/2022 4:03 AM T [facility] Chloride 112(H) 98 - 107 mmol/L 12/04/2022 4:03 AM T [facility] CO2 18(L) 22 - 29 mmol/L 12/04/2022 4:03 AM [facility] Glucose 155(H) 70 - 115 mg/dL 12/04/2022 4:03 AM [facility] Albumin 2.6(L) 3.4 - 5.0 g/dL 12/04/2022 4:03 AM [facility] Calcium 9.0 8.4 - 10.2 mg/dL 12/04/2022 4:03 AM [facility] Phosphorus 3.7 2.9 - 5.1 mg/dL 12/04/2022 4:03 AM [facility] Anion Gap 23(H) 8 - 18 12/04/2022 4:03 AM [facility] BUN/Creatinine Ratio 7 7 - 23 12/04/2022 4:03 AM [facility] Osmolality Calculated 309(H) 270 - 300 mOsm/kg 12/04/2022 4:03 AM [facility] eGFR by CKD-EPI 63(L) >=90 mL/min/1.7 3 m2 12/04/2022 4:03 AM [facility] Blood BLOOD SPECIMEN / Unknown Lab Venipuncture / Unknown 12/04/2022 2:46 AM CDT 12/04/2022 3:24 AM T Blaine Campo MD LAB - CHEMISTRY ORDERABLES Final Result [facility] [address] [place] [address], [facility] [phone] * (ABNORMAL) HEMOGLOBIN A1C (11/26/2022 1:18 AM CDT) Hemoglobin A1c 9.1(H) <=5.6 % 11/26/2022 1:26 PM [facility] Estimated Average Glucose 214 mg/dL 11/26/2022 1:26 PM [facility] Comment: HbA1c Interpretation: Normal : < 5.7% Pre-diabetes: 5.7-6.4% Diabetes: Equal to or greater than 6.5% Test results diagnostic of diabetes should be repeated for confirmation. Treatment target values recommended by ADA and other clinical organizations should be used to evaluate metabolic control in patients. Reference: [place] Diabetes Association, Standards of Care in Diabetes -2020 In patients 70 years and older consider HbA1c target range of 7.0-7.5% (Reference: Cody Garcia et al. STACEYDA. 2012) The Sebia assay for the measurement of HbA1c is a National Glycohemoglobin Standardization Program (NGSP) certified method. Blood BLOOD SPECIMEN / Unknown Lab Venipuncture / Unknown 11/26/2022 1:18 AM CDT 11/26/2022 1:26 AM CDT us Robbie Mccann MD LAB - CHEMISTRY ORDERABLES Mary l Result Performing Organization Address City/[facility]/ZIP Co de Phone Number [address] [address], [facility] [phone] * HEPATITIS SCREEN ACUTE (07/24/2022 4:12 AM APPLICATIONS SUPPORT ENGINEER) Hepatitis A Virus Antibody IgM Non-react bartolome Non-reac tive 07/24/2022 5:11 AM [facility] Hepatitis B Virus Surface Antigen Non-react bartolome Non-reac tive 07/24/2022 5:11 AM [facility] Hepatitis B Core Virus Antibody IgM Non-react bartolome Non-reac tive 07/24/2022 5:11 AM [facility] Hepatitis C Antibody Non-react bartolome Non-reac tive 07/24/2022 5:11 AM [facility] Comment:Hepatitis C Antibody screen indicates no serologic evidence of past or current infection with Hepatitis C Virus. Patients with unexplained liver disease who are immunocompromised or suspected of having acute Hepatitis C infection may benefit from Nucleic Acid Test (CHA) for Hepatitis C Viral RNA to confirm Hepatitis C status. Blood BLOOD SPECIMEN / Unknown Venipuncture / Unknown 07/24/2022 4:12 AM APPLICATIONS SUPPORT ENGINEER 07/24/2022 4:37 AM APPLICATIONS SUPPORT ENGINEER us Sarabjit Gutierrez MD LAB - CHEMISTRY ORDERAB LES Final Result [address] [address], [facility] [phone] from Last 3 Months or Most Recently Relevant to Health Maintenance Insurance MEDICARE MEDICAID - [place] MEDICAID - [facility] Advance Directives Documents on File Type Date Recorded Patient Senior Microstrategy Developer Expl anation Adv Directive/Living Will/POA 08/01/2022 11:56 [...] Martin Daughter Health Care Agent Care Teams Sales Development Manager Relationship Specialty Start Date End Date Allie Sinclair PA-C [address] [place] [phone] PCP - General 07/08/22
[2025-05-12 11:17] LABS: Add Urine Microscopic? YES; Appearance Urine Cloudy (Clear); Glucose Urine UA Negative (Negative); Leukocyte Esterase Ur 2+ LEU/UL (Negative); Nitrate Urine Positive (Negative); Specific Grav Ur 1.017 (1.001-1.035)
[2025-05-12 11:34] LABS: Hematocrit 37.8 % (37.0-47.0); Hemoglobin 11.8 g/dL (12.0-15.0); Immature Granulocyte Percent A 0.4 % (0-0.5); Lymphocytes Absolute Auto 0.93 K/mm3 (0.9-3.2); Mean Corpuscular HGB Conc 31.2 g/dl (32-36); Mean Corpuscular Hemoglobin 29.6 pg (26-34); Mean Corpuscular Volume 95.0 fl (80-100); Nucleated Red Blood Cells Absolute Auto 0.000 K/mm3 (0.0-0.012); Nucleated Red Blood Cells Perc 0.0 % (0.0-0.2); Platelet Count Result 254 k/mm3 (150-375); Red Blood Count 3.98 M/mm3 (4.2-5.4); White Blood Count 9.7 K/mm3 (4.5-10.0)
[2025-05-12 11:49] LABS: Alanine Aminotransferase 22 U/L (6-35); Albumin Level 4.2 g/dL (3.5-5.1); Alkaline Phosphatase 51 U/L (38-126); Anion Gap 8 mmol/L (4-12); Aspartate Amino Transferase 33 U/L (14-36); Bilirubin,Total 0.9 mg/dL (0.2-1.3); Blood Urea Nitrogen 25 mg/dL (7-17); Calcium 10.0 mg/dL (8.4-10.2); Carbon Dioxide 24 mmol/L (22-30); Chloride 108 mmol/L (98-107); Estimated CRCL calculation 41 ml/min; Estimated Glomerular Filt Rate 50; Glucose 144 mg/dL (65-110); Potassium 3.7 mmol/L (3.4-5.0); Sodium 140 mmol/L (137-145); Total Protein 7.3 g/dL (6.3-8.2)
--- OUTSIDE RECORDS SUMMARY | 2025-05-12 12:12 | XMS_ITS | Clinical Summary ---
Author Organization [facility] Address [facility] [place] [address] Care Team Providers Care Visual Basic Developer Name Role Phone Allie Sinclair PA-C Primary Care Provider [phone] Allergies Active Allergy Reactions Criticality Noted Date Comments Aspartame Diarrhea 07/26/2022 Morphine Other (see comment) High 09/10/2023 Pt had bad experience: Acute drug intoxication - called EMS, almost had to complete temporary HD - went to [facility] Quetiapine Hallucinations 03/02/2025 Topiramate Hallucinations 03/02/2025 Medications amlodipine 10 MG tablet Take 1 [...] 2 (two) times daily. 180 tablet 3 02/08/2025 Active lacosamide (VIMPAT) 100 MG TabIndications: Seizure disorder (CMS/HCC HHS/HCC) Take 1 tablet (100 mg total) by mouth 2 (two) times daily. 60 tablet 5 02/08/2025 Active sertraline (ZOLOFT) 50 MG tablet Take 1 tablet (50 mg total) by mouth daily. 02/22/2025 Active Active Problems Problem Noted Date Diagnosed Date Confusion 05/26/2024 Acute metabolic encephalopathy 03/15/2024 [place] deformity of left finger(s) 02/25/2024 Obstructive sleep apnea syndrome 10/09/2022 Atrial fibrillation 08/26/2022 Obesity, Class II, BMI 35-39.9 07/12/2022 Paroxysmal atrial fibrillati on with rapid ventricular response 07/12/2022 Overview (02/13/2023): Last Assessment & Plan: Patient developed paroxysmal AFib while inpatient, was started on metoprolol 25 mg b.i.d. and Eliquis 5 mg b.i.d., which later placed on hold due to GI Tachycardia 07/11/2022 H/O: CVA (cerebrovascular accident) 07/08/2022 Altered mental status 07/07/2022 COVID-19 virus infection 08/27/2021 TIA (transient ischemic attack) 08/27/2021 Seizure disorder 10/26/2020 Hyperlipidemia 03/14/2019 Overview (02/13/2023): Last Assessment [...] h other diabetic kidney complication 04/28/2016 Overview (02/13/2023): Last Assessment & Plan: A1c 6.6 a year ago. Continue Lantus 12 units bedtime, Tradjenta 5 mg, glipizide 5 mg. Will check A1c level next labs. Monitor Accu-Cheks Encounters Date Type Department Care Team Description 04/04/2025 Telephone [facility], [facility] [address] [place] [id number] Deandra Mcghee PA Medication 03/02/2025 10:20 AM CDT Office Visit [facility] - [address], [address] [place] [phone] Justine Can MD Seizures 03/02/2025 Travel from Last 3 Months Immunizations Immunization [...] = 0.6 oz pur e alcohol) socially [facility] Utilities Answer Date Recorded In the past 12 months has e [employer], [employer], oil, or water [employer] threatened to shut off services in your [...] any time in the past 12 m [facility], were you homeless or living in a fci (including now)? No 05/27/2024 Comments No Sex and Gender Information Value Date Recorded Sex Assigned at Female 09/20/2024 9:45 AM SERVICE ENGINEER Legal Sex Female 6:56 PM CDT Gender Identity Not on file Sexual Orientation Not on file Last Filed Vital Signs Vital Sign Reading Time Taken Comments Blood Pressure 114/64 03/02/2025 10:33 AM CDT Pulse 53 03/02/2025 10:33 AM CDT Temperature 36.4 C (97.6 F) 03/02/2025 10:33 AM CDT Respiratory Rate 16 08/29/2024 10:39 AM SERVICE ENGINEER Oxygen Saturation 98% 03/02/2025 10:33 AM CDT Inhaled Oxygen Concentration - - Weight 79.4 kg (175 lb) 10/11/2024 10:28 AM CDT Height 170.2 cm (5' 7) 03/02/2025 10:33 AM CDT Body Mass Index 27.41 09/20/2024 9:56 AM SERVICE ENGINEER Plan of Treatment Upcoming Encounters Date Type Department Care Team (Late st Contact Info) Description 07/10/2025 10:20 AM SERVICE ENGINEER Office Visit [facility] - [address], [address] [place] [phone] Justine Can MD [address] [place], [place] [phone] Health Maintenance Due Date Last Done Comments [...] 2 - PCV) 05/17/2020 05/17/2019 Hemoglobin A1C 12/05/2024 06/07/2024, 11/17, 11/26/2022, Additional history exists COVID-19 Vaccine (3 - season) 2025 09/27/2020, 09/06/2020 Influenza Adult (#1) 2025 05/04/2023, 05/10/2021, 05/17/2019, Additional history exists Lipid Panel 06/07/2025 06/07/2024 DTaP, Tdap and Td Vaccines (2 - Td or Tdap) 04/01/2032 04/01/2022 Hepatitis C Completed 07/24/2022 PHQ-2 (Physician [place]) Completed 10/11/2024 Hepatitis A Vaccines Aged Out No long er eligible based on patient's age to complete this topic Meningococcal B Vaccine Aged Out No l onger eligible based on patient's age to complete this topic Meningococcal Vaccine Aged Out No aidee jayne eligible based on patient's age to complete this topic RSV Immunizations Under 20 Months Aged Out No longer eligible based on patient's age to complete this topic Medical Devices Implanted Type Area Equities Trader Device Identifier Shelf Expiration Date Model / Serial / Lot Plate Synthes 2.4 Va-Lcp Vlr Dist Radius 6h Hd/3h Shaft Right - [id number] Implanted:Qty: 1 on 11/24/2017 by Godwin Aguirre MD at [facility] Plate Right: Arm SYNTHES 11/24/2017 [id number] / / NA Screw Synthes 2.4 Locking Stardrive 14mm - [id number] Implanted:Qty: 2 on 11/24/2017 [facility] Scre[facility] Right: Arm SYNTHES 11/24/2017 [id number] / / NA Screw Synthes 2.4 Locking Stardrive 16mm - [id number] Implanted:Qty: 1 on 11/24/2017 by Godwin Aguirre MD at [facility] Screw Right: Arm SYNTHES 11/24/2017 [id number] / / NA Screw Synthes 2.4 Locking Stardrive 18mm - [id number] Implanted:Qty: 1 on 11/24/2017 by Godwin Aguirre MD at [facility] Screw Right: Arm SYNTHES 11/24/2017 [id number] / / NA Screw Synthes 2.4 Locking Stardrive 20mm - [id number] Implanted:Qty: 1 on 11/24/2017 by Godwin Aguirre MD at [facility] Screw Right: Arm SYNTHES 11/24/2017 02.210.120 / / NA Screw Synthes 2.4 Locking Stardrive 18mm - [id number] Implanted:Qty: 1 on 11/24/2017 by Godwin Aguirre MD at [facility] Screw Right: Arm SYNTHES 11/24/2017 [id number] / / NA Screw Synthes 2.7 Cortical Self Tap 14mm - [id number] Implanted:Qty: 1 on 11/24/2017 by Godwin Aguirre MD at [facility] Right: Arm SYNTHES 11/24/2017 [id number] / / NA Screw Synthes 2.7 Cortical Self Tap 12mm - [id number] Implanted:Qty: 2 on 11/24/2017 by Godwin Aguirre MD at [facility] Right: Arm SYNTHES 11/24/2017 202.872 / / NA Explanted Type Area Equities Trader Device Identifier Shelf Expiration Date Model / Serial / Lot Wire Synthes 1.5mm Jenn 150mm W/Trocar Point - [id number] Implanted:Qty: 1 Explanted:Qty: 1 on 11/24/2017 by Godwin Aguirre MD at [facility] Right: Arm SYNTHES 11/24/2017 [id number] / [...] Documents on File Type Date Recorded Patient Baker Pie Expl anation Advance Directives and Livin g Will 06/01/2024 3:14 PM * Full Code (Latest Code Status on File) Date Activated Date Inactivated Comments 05/26/2024 3:19 PM 05/31/2024 8:06 PM * Full Code Date Activated Date Inactivated Comments 03/15/2024 8:38 AM 03/19/2024 4:15 PM Healthcare Agents on File Name Relationship Healthcare Agent [facility] p Communication Claudia GUARDADO Marques Blue Health Care Agent Estrella (1st Alt) Flach Relative First Alter edward Health Care Agent Care Teams Visual Basic Developer Relationship Specialty Start Date End Date Allie Sinclair PA-C PCP - General PHYSICIAN EMPLOYMENT LAW SPECIALIST 01/29/23
--- OUTSIDE RECORDS SUMMARY | 2025-05-12 12:12 | XMS_ITS | Clinical Summary ---
Author Organization [facility] Address [address] [address] Care Team Providers Care Air Control/Anti Air Warfare Officer Name Role Phone Allie Sinclair PA-C Primary Care Provider [phone] Source Comments [facility],non-owned Affiliates and Associated Physician Practices is amultiple site organization consisting of ambulatory clinics and hospital sitesin [place], [place], [place] and [place]. This disclosure is being madepursuant to the Care Everywhere program and may not contain all information available regarding this patient. Last updated 18.[facility] Allergies Active Allergy Reactions Criticality Noted Date Comments Artificial Sweeteners Diarrhea Medium 07/26/2022 Aspartame Diarrhea Medium 07/26/2022 Morphine Other High 09/10/2023 Pt had bad experience: Acute drug intoxication - called EMS, almost had to complete temporary HD - went to [facility] Medications * Be aware that medications [...] 09/10/2023 midazolam (Nayzilam) 5 MG/0.1ML nasal spray [place] 0.1 mL into the nose as needed for Seizures Lasting longer than 5 minutes. Can administer second dose in other nostril if seizure continues after 10 minutes. 4 Each 5 09/04/19 23 Active Additional Information Patient not taking.Reported on 11/07/2022 Cholecalciferol 1.25 MG (36829 UT) cholecalciferol (vitamin D3) 1,250 mcg (50,000 unit) capsule TAKE 1 CAPSULE BY MOUTH EVERY WEEK WITH FOOD Active saline nasal spray (Loving; Baby Dunnigan) 0.65 % nasal spray [place] 1 (one) spray to 2 (two) sprays [...] 07/07/20 23 Active Blood Glucose Monitoring Suppl (Moneero Verio Flex System) w/Device KIT USE TO CHECK BLOOD SUGAR THREE TIMES DAILY 05/04/20 23 Active amLODIPine (Norvasc) 10 MG tablet Take 1 (one) tablet by mouth every morning 07/21/19 24 Active fenofibrate (Lofibra) 160 MG tablet TAKE 1 TABLET BY MOUTH EVERY DAY WITH MEALS 08/17/19 24 Active Xylan Corporationuch Verio test strip USE TO CHECK BLOOD SUGAR TWICE DAILY 05/05/20 23 Active Lancets (Toad MedicalTOUCH DELICA PLUS 33G EXTRA FINE LANCET) USE [...] and cleaning.Pt will be dc today to [facility]. 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 from Last 3 Months [...] and heating? Not hard at all 11/29/2022 [facility] Occupat ional Health - Occupational Stress [...] place to sleep or slept in a intermediate (including now)? No 11/29/2022 Comments No Sex and Gender Information Value Date Recorded Sex Assigned at Not on file Legal Sex Female 6:40 AM CATERING COOK Gender Identity Not on file Sexual Orientation Not on file Last Filed Vital Signs Vital Sign Reading Time Taken Comments Blood Pressure 123/68 09/17/2023 3:50 PM CATERING COOK Pulse 68 09/17/2023 3:50 PM CATERING COOK Temperature 36.5 C (97.7 F) 09/17/2023 3:27 PM CATERING COOK Respiratory Rate 13 09/17/2023 3:50 PM CATERING COOK Oxygen Saturation 98% 09/17/2023 3:50 PM CATERING COOK Inhaled Oxygen Concentration 25% 07/23/2022 1 0:00 AM CATERING COOK Weight 90.9 kg (200 lb 6.4 oz) 09/17/2023 12:34 PM CATERING COOK Height 170.2 cm (5' 7) 09/17/2023 12:34 PM CATERING COOK Body Mass Index 31.39 09/17/2023 12:34 PM CATERING COOK Plan of Treatment Upcoming Encounters Date Type Department Care Team (Late st Contact Info) Description 07/06/2025 1:00 PM CATERING COOK Office Visit [facility] [address] [facility] [place] [address] Tanisha Collazo, SALES TECHNICIAN-LABORER [employer] [address] [place] [address] Health Maintenance Due Date Last Done Comments [...] this topic Medical Devices Implanted Type Area Cured Meat Packing Supervisor Device Identifier Shelf Expiration Date Model / Serial / Lot Parth Bone Void 5cc Dbm Allosync Ptty Implanted:Qty: 2 on 11/25/2022 by Robbie Mccann MD at [facility] Left: Humerus [employer] 04/23/2026 / / Screw 3.5mm 32mm T15 Slf-Tap Lck Tpr Implanted:Qty: 1 on 11/25/2022 by Robbie Mccann MD at [facility] Left: Humerus [employer] [id number] / / Screw 3.5mm 36mm T15 Slf-Tap Lck Tpr Implanted:Qty: 1 on 11/25/2022 by Robbie Mccann MD at [facility] Left: Humerus [employer] [id number] / / Screw 3.5mm 38mm T15 Slf-Tap Lck Tpr Implanted:Qty: 1 on 11/25/2022 by Robbie Mccann MD at [facility] Left: Humerus [employer] [id number] / / Screw 3.5mm 42mm T15 Lck Slf-Tap Tip Tpr Implanted:Qty: 1 on 11/25/2022 by Robbie Mccann MD at [facility] Left: Humerus [employer] [id number] / / Screw 3.5mm 46mm T15 Slf-Tap Lck Tpr Implanted:Qty: 1 on 11/25/2022 by Robbie Mccann MD at [facility] Left: Humerus [employer] [id number] / / Screw 3.5mm 48mm T15 Slf-Tap Lck Tpr Implanted:Qty: 1 on 11/25/2022 by Robbie Mccann MD at [facility] Left: Humerus [employer] [id number] / / Screw 3.5mm 46mm T15 Lck Mldir Nonster Implanted:Qty: 1 on 11/25/2022 by Robbie Mccann MD at [facility] Left: Humerus [employer] [id number] / / Graft Bone Infs Rhbmp-2 Bvn Clgn Lg 8ml Implanted:Qty: 1 on 11/25/2022 by Robbie Mccann MD at [facility] Left: Humerus Med[employer] Inc 07/20/2024 [id number] / / [id number] Graft Bone Almtr Dbm Canc 5ml Algrf Ptty - [id number] Implanted:Qty: 1 on 11/25/2022 by Robbie Mccann MD at [facility] Left: Humerus [employer] 09/22/2023 [id number] / [id number] / Alps Proximal Humerus Low Plate Left 11 H, 190mm Implanted:Qty: 1 on 11/25/2022 by Robbie Mccann MD at [facility] Left: Humerus [id number] / / Screw 3.5mm 20mm T15 Lopro Nonlock Implanted:Qty: 3 on 11/25/2022 by Robbie Mccann MD at [facility] Left: Humerus [employer] [id number] / / Screw 3.5mm 22mm T15 Nonlock Lopro Implanted:Qty: 1 on 11/25/2022 by Robbie Mccann MD at [facility] Left: Humerus [employer] [id number] / / Screw 3.5mm 24mm T15 Nonlock Lopro Implanted:Qty: 1 on 11/25/2022 by Robbie Mccann MD at [facility] Left: Humerus [employer] [id number] / / Screw 3.5mm 32mm T15 Nonlock Lopro Implanted:Qty: 1 on 11/25/2022 by Robbie Mccann MD at [facility] Left: Humerus [employer] [id number] / / Explanted Type Area Cured Meat Packing Supervisor Device Identifier Shelf Expiration Date Model / Serial / Lot Screw 3.5mm 36mm T15 Slf-Tap Lck Tpr Explanted:Qty: 1 on 11/25/2022 by Robbie Mccann MD at [facility] Left: Humerus [employer] [id number] / / Screw 3.5mm 48mm T15 Slf-Tap Lck Tpr Explanted:Qty: 2 on 11/25/2022 by Robbie Mccann MD at [facility] Left: Humerus [employer] [id number] / / Wire K 2mm 152mm Top Tray Ss Fx Explanted:Qty: 4 on 11/25/2022 by Robbie Mccann MD at [facility] Left: Humerus Fadi [employer] [id number] / / Screw 3.5mm 24mm T15 Nonlock Lopro Explanted:Qty: 1 on 11/25/2022 by Robbie Mccann MD at [facility] Left: Humerus [employer] [id number] / / Procedures Procedure Name Priority Date/Time Associated Diagnosis Comments RENAL FUNCTION PANEL AM Draw 12/04/2022 2:46 AM CDT HEMOGLOBIN A1C Routine 11/26/2022 1:18 AM CDT Other fracture of shaft of left humerus, subsequent encounter for fracture with malunion HEPATITIS SCREEN ACUTE AM Draw 07/24/2022 4:12 AM CATERING COOK from Last 3 Months or Most Recently Relevant to Health Maintenance Results * (ABNORMAL) RENAL FUNCTION PANEL (12/04/2022 2:46 AM CDT) BUN 7 7 - 26 mg/dL 12/04/2022 4:03 AM CDT [facility] Creatinine 0.98(H) 0.56 - 0.96 mg/dL 12/04/2022 4:03 AM CDT [facility] Sodium 149(H) 136 - 145 mmol/L 12/04/2022 4:03 AM CDT [facility] Potassium 4.4 3.5 - 4.5 mmol/L 12/04/2022 4:03 AM T [facility] Chloride 112(H) 98 - 107 mmol/L 12/04/2022 4:03 AM T [facility] CO2 18(L) 22 - 29 mmol/L 12/04/2022 4:03 AM [facility] Glucose 155(H) 70 - 115 mg/dL 12/04/2022 4:03 AM [facility] Albumin 2.6(L) 3.4 - 5.0 g/dL 12/04/2022 4:03 AM [facility] Calcium 9.0 8.4 - 10.2 mg/dL 12/04/2022 4:03 AM [facility] Phosphorus 3.7 2.9 - 5.1 mg/dL 12/04/2022 4:03 AM [facility] Anion Gap 23(H) 8 - 18 12/04/2022 4:03 AM [facility] BUN/Creatinine Ratio 7 7 - 23 12/04/2022 4:03 AM [facility] Osmolality Calculated 309(H) 270 - 300 mOsm/kg 12/04/2022 4:03 AM [facility] eGFR by CKD-EPI 63(L) >=90 mL/min/1.7 3 m2 12/04/2022 4:03 AM [facility] Blood BLOOD SPECIMEN / Unknown Lab Venipuncture / Unknown 12/04/2022 2:46 AM CDT 12/04/2022 3:24 AM T Blaine Campo MD LAB - CHEMISTRY ORDERABLES Final Result [facility] [address] [place] [id number], [facility] [phone] * (ABNORMAL) HEMOGLOBIN A1C (11/26/2022 1:18 AM [...] to evaluate metabolic control in patients. Reference: [place] Diabetes Association, Standards of Care in Diabetes [...] City/[facility]/ZIP Co de Phone Number [address] [address], [facility] [phone] * HEPATITIS SCREEN ACUTE (07/24/2022 4:12 AM CATERING COOK) Hepatitis A Virus Antibody IgM Non-react bartolome Non-reac tive 07/24/2022 5:11 AM [facility] Hepatitis B Virus Surface Antigen Non-react bartolome Non-reac tive 07/24/2022 5:11 AM [facility] Hepatitis B Core Virus Antibody IgM Non-react bartolome Non-reac tive 07/24/2022 5:11 AM [facility] Hepatitis C Antibody Non-react bartolome Non-reac tive 07/24/2022 5:11 AM [facility] Comment:Hepatitis C Antibody screen indicates no serologic evidence of past or current infection with Hepatitis C Virus. Patients with unexplained liver disease who are immunocompromised or suspected of having acute Hepatitis C infection may benefit from Nucleic Acid Test (CHA) for Hepatitis C Viral RNA to confirm Hepatitis C status. Blood BLOOD SPECIMEN / Unknown Venipuncture / Unknown 07/24/2022 4:12 AM CATERING COOK 07/24/2022 4:37 AM CATERING COOK us Sarabjit Gutierrez MD LAB - CHEMISTRY ORDERAB LES Final Result [address] [address], [facility] [phone] from Last 3 Months or Most Recently Relevant to Health Maintenance Insurance MEDICARE MEDICAID - [place] MEDICAID - [facility] Advance Directives Documents on File Type Date Recorded Patient Solid Surface Fabricator Expl anation Adv Directive/Living Will/POA 08/01/2022 11:56 [...] Martin Daughter Health Care Agent Care Teams Air Control/Anti Air Warfare Officer Relationship Specialty Start Date End Date Allie Sinclair PA-C [address] [place] [phone] PCP - General 07/08/22
--- OUTSIDE RECORDS SUMMARY | 2025-05-12 12:12 | XMS_ITS | Data Portability ---
Author Organization [place] [facility] OFFICE Address [address] [place] [address] Care Team Providers Care Chief Controller Name Role Phone ELIAS FIGUEROA Primary Care [...] By Organization Details Last Modified Time 10/14/2022 [id number] Exercise advised Low cholesterol diet advised Low sodium diet advised. [email or web address] Not available 10/14/2022 13:23:36 11/04/2022 [id number] Low cholesterol diet advised Low sodium diet advised. [email or web address] Not available 11/04/2022 12:30:17 Reason for Referral None Reported. Results Created Date Observation Date Name Description Value Unit Range Abnormal Flag Note LastModifiedBy Organization Detail LastModifiedTime 10/17/19 23 10/14/2022 elect radha diogr am No observ ation record ed. [email or web address] Not Available 2022 17:37:50 10/29/19 23 10/23/2022 , zhou gillilando gram No observ ation record ed. [email or web address] Not Available 2022 09:43:59 11/04/19 23 10/21/2022 jerzy can cardi olite stres s test (PROC ) No observ ation record ed. [email or web address] Not Available 2022 09:24:02 Result Notes Documentation Provider Name and Address Organization Details Recorded Time Glucagon, Serum Or Plasma : 11/05/22:Glu 289. Denny Vargas null, [place] - [facility] 11/12/2022 12:47:41 Cmp, Serum Or Plasma : 11/05/22:Na 136,K 3.9,Cl 101,CO2 20,Glu 403,BUN 23,Cr 1.40,ABO/Rh O positive . 11/05/22:WBC 7.8,RBC 4.53,Hgb 12.9,HCT 39.5,PLT 215. 11/05/22:PT 13.7,INR 1.0. Denny [place]arg[place] - [facility] 11/12/2022 16:11:27 Cmp, Serum Or Plasma : 11/05/22:Na 136,K 3.9,Cl 101,CO2 20,Glu 403,BUN 23,Cr 1.40,ABO/Rh O positive. 11/05/22:WBC 7.8,RBC 4.53,Hgb 12.9,HCT 39.5,PLT 215. 11/05/22:PT 13.7,INR 1.0. Denny [place], [place] - [facility] 11/12/2022 16:14:38 Problems Name Problem SNOMED Code Status Onset Date Resolution Date Notes Provider Name and Address Organization Details Recorded Time Essential hypertension 06520559 Active 2022 Denny [place]arg[place], [place] - [facility] 3 18:31:18 Hyperlipidemia 57339230 Active 2022 Denny [place] [facility] 18:31:38 Diabetes mellitus 54390832 Active 2022 D[place] [facility] 18:31:53 Tuberculosis 53118053 Active 2022 D[place] [facility] 3 18:32:07 Vitamin D deficiency 83542658 Active 2022 Baldwin M[place] - [facility] 3 18:32:23 Hypomagnesemia 860353219 Active 2022 [place] [facility] 3 18:32:33 Hypokalemia 33220623 Active 2022 [place] [facility] 3 18:32:43 Depressive disorder 56879908 Active 2022 [place] [facility] 3 18:32:50 Migraine 41314926 Active 2022 [place] [facility] 3 18:33:03 Carpal tunnel syndrome 18902641 Active 2022 [place] [facility] 3 18:33:16 Allergic rhinitis 75413001 Active 2022 [place] [facility] 3 18:33:36 Gallstone 443797725 Active 2022 [place] [facility] 3 18:33:55 Renal failure syndrome 59014174 Active 2022 [place] [facility] 3 18:34:09 Acute urinary tract infection 271006594 Active 2022 [place] [facility] 3 18:34:23 Contact dermatitis 59220145 Active 2022 [place] [facility] 3 18:34:38 Arthritis 0127037 Active 2022 [place] [facility] 3 18:34:45 Swelling of knee joint 930549107 Active 2022 [place] [facility] 3 18:35:00 Pain of shoulder region 53529373 Active 2022 [place] [facility] 3 18:35:16 Neck pain 88129160 Active 2022 [place] [facility] 18:35:26 Plantar fasciitis 890568047 Active 2022 [facility] 18:35:43 Seizure 15010611 Active 2022 [facility] 18:35:56 Obstructive sleep apnea syndrome 49513314 Active 2022 Baldwinkenji Vargas [facility] 18:36:03 History of anemia vitamin B12 deficient 292169758 Active 2022 Baldwinkenji Vargas [facility] 18:36:37 Diverticulosis of colon 587012030 Active 2022 Baldwinkenji Vargas [facility] 18:36:57 Problem Notes None recorded. Procedures Surgical History Date Name Laterality Status Provider Name and Address Organization Details Recorded Time arthroscopic procedure completed [facility] 10/08/2022 18:40:15 tonsillectomy completed [facility] 10/08/2022 18:40:23 ligation of fallopian tube completed [facility] 10/08/2022 18:40:33 Brain aneurysm repr simple completed [facility] 10/08/2022 18:40:53 Imaging Results None recorded. Procedure [...] Available TRUEplus Pen Needle 32 gauge x /32 USE DIRECTED WITH INSULIN ONCE A DAY active Not Available Not Available No t Available Nayzilam 5 mg/spray (0.1 mL) nasal spray active Not Available Not Available Not Available Vitals Date Recorded Body height Body mass index (BMI) Body weight Heart rate Respiratory rate Oxygen saturation Oxygen saturation in Arterial blood by Pulse oximetry Systolic And Diastolic Provider Name and Address Organization Details Last Updated DateTime 3 170.18 cm 34.8 kg/m2 751635. 51 g 75 /min 16 /min 94 % 94 % 132/84 mm[Hg] Gilberto Carreon [facility] 3 13:13:32 Date Recorded Body height Body mass index (BMI) Body weight Heart rate Oxygen saturation Oxygen saturation in Arterial blood by Pulse oximetry Systolic And Diastolic Provider Name and Address Organization Details Last Updated DateTime 3 170.18 cm 33.9 kg/m2 48471.1 1 g 85 /min 99 % 99 % 130/80 mm[Hg] Zuly Alexander [facility] 3 12:05:28 Social History None recorded. Functional [...] Diagnosis SNOMED-CT Code Diagnosis ICD10 Code Diagnosis IMO Codes Diagnosis Note 45902 Juwan Newton MD [facility] [place] [address] 10/14/2022 12:43:23 10/14/2022 13:26:45 Essential hypertension 70071024 I10 with fair control Hyperlipidemia 44269991 E78.5 Needs to keep LDL less than 70, and HDL more than 40 Will get lipid profile results from PCP Electrocar diogram abnormal 503859156 R94.31 Lexiscan Myoview stress test, pt can not walk. Has known coronary artery disease, with atypical symptoms now Chronic di astolic heart failure 063039401 I50.32 Obtain echo to evaluate for structural /functiona l disease. Edema of l ower extremity 646155063 R60.0 Obtain echo to evaluate for structural /functiona l disease. Pre-surger y evaluation 037642168 Z01.818 Lexiscan Myoview stress test, pt can not walk. Has known coronary artery disease, with atypical symptoms now, the patient is not able to walk on treadmill 88640 Juwan Newton MD [facility] [address] [place] [address] 11/04/2022 11:12:20 11/04/2022 12:35:12 Dyspnea on exertion 01312400 R06.09 US, echocardio gramLV chamber size is [...] well visualized . Atypical chest pain 1025 40354 R07.89 she has a positive stress test The patient will be scheduled for left heart catheteriz ation, with coronary angiogram, and possible PTCA/Stent . The procedure was discussed with the patient, and risks, benefits, and alternativ e options were explained. The patient was given informatio n about heart catheteriz ation and interventi onal procedures . The patient agrees to proceed. Dyslipidemia 363731246 E 78.5 continue with lipitor 40 mg daily Obstructiv e sleep apnea syndrome 20510166 G47.33 she has sleep study previously but it was mild per patient Essential hypertension 44665995 I10 with fair control Pre-surger y evaluation 184575593 Z01.818 with positive stress testThe patient will be scheduled for left heart catheteriz ation, with coronary angiogram, and possible PTCA/Stent . The procedure was discussed with the patient, and risks, benefits, and alternativ e options were explained. The patient was given informatio n about heart catheteriz ation and interventi onal procedures . The patient agrees to proceed. Paroxysmal atrial fibrillation 482302572 I48.0 in sinus rhythm todayshe is not on blood thinner nor aspirin Health Concerns Section Related Observation LastModified by Organization Detai ls LastModified Time None Recorded Concern Status LastModified by Organization Details LastModified Time None Recorded Advance Directives Directive None Recorded Payers Insurance Date Sequence Insurance Name Policy Number Policy Shepard Covered Member ID Shepard Member ID Guarantor Name 11/03/2022 1 [place] Kerline Martin [id number] Kerline Martin 11/03/2022 2 [place] [facility] Kerline Martin [id number] Kerline Martin Notes Date Note Type Note Provider Name and Address Organization Details Recorded Time 10/14/2022 text/html 10/14/22CC: dyspnea on exertionKerline MARTIN is a 59 years-old [...] somnolence and AM headache. Juwan Newton MD [address] [place], [address], [facility] 10/14/2022 13:24:53 11/04/2022 text/html 10/14/22CC: dyspnea on exertionKerline MARTIN is a 59 years-old [...] somnolence and AM headache. BOB [place] - [facility] 11/04/2022 12:47:11 OBGyn Episode No OBEpisode recorded.
--- OUTSIDE RECORDS SUMMARY | 2025-05-12 12:12 | XMS_ITS | Encounter Summary ---
Author Organization [facility] Address [address] [place] [address] Phone Care Team Providers Care Funeral Workers Name Role Phone Allie Sinclair Primary Care Provider [phone] Reason for Visit * Reason Comments Med Refill Encounter Details Date Type Department Care Team ([facility] Contact Info) Description 08/21/2024 Refill [facility] [address] [phone] Lizzeth Mohan NP [address] [phone] Social History Tobacco Use Types Packs/Day Years [...] Upcoming Encounters Date Type Department Care Team ([facility] Contact Info) Description 09/04/2025 3:00 PM RESERVOIR ENGINEER Office Visit [facility] [address] [facility] 1 [place], [place] [phone] Lizzeth Mohan NP [address] [phone] documented as of this encounter Visit Diagnoses Not on filedocumented in this encounter Care Teams Funeral Workers Relationship Specialty Start Date End Date Allie Sinclair PA [address] [place], [place] [address] PCP - General Family Medicine 11/08/24 documented as of this encounter
--- OUTSIDE RECORDS SUMMARY | 2025-05-12 12:12 | XMS_ITS | Encounter Summary ---
Author Organization [facility] Address [address] [facility] [place] [address] Care Team Providers Care Valve Steamer Name Role Phone Allie Sinclair PA-C Primary Care Provider Encounter Details Date Type Department Care Team ([facility] st Contact Info) Description 03/03/2025 Telephone [facility] - [facility]rology [facility] [place] [address] [facility] Update Information Social History Tobacco [...] and heating? Not hard at all 11/29/2022 [place] [place] [facility] - Occupational Stress [...] place to sleep or slept in a jail (including now)? No 11/29/2022 Comments No Sex and Gender Information Value Date Recorded Sex Assigned at Not on file Legal Sex Female 6:40 AM BARREL PLANER Gender Identity Not on file Sexual Orientation [...] NP Or Phoebe KEATING Or Grace Perry CAN DRAGGER Called back and got vm, left a message to call us back to schedule. Patient Call Back Number: [phone] documented in this encounter Plan of Treatment Upcoming Encounters Date Type Department Care Team (Late st Contact Info) Description 07/06/2025 1:00 PM BARREL PLANER Office Visit [facility] - Neurology [address] [facility] [place] [address] Tanisha Collazo, SUPERVISOR [employer] [address] [place] [address] documented as of this encounter Visit Diagnoses Not on filedocumented in this encounter Care Teams Valve Steamer Relationship Specialty Start Date End Date Allie Sinclair PA-C [address] [place] [phone] PCP - General 07/08/22 documented as of this encounter
--- OUTSIDE RECORDS SUMMARY | 2025-05-12 12:12 | XMS_ITS | Clinical Summary ---
Author Organization [facility] Address [address] [place] [address] Phone Care Team Providers Care Air Bag Curer Name Role Phone Allie Sinclair Primary Care Provider [phone] Allergies No known active allergies Medications atorvastatin (LIPITOR) 40 MG tablet Onee tablet at bedtime 0 04/28/20 16 Active acetaminophen (TYLENOL) 325 MG tablet Take 2 tablets by mouth every 12 (twelve) hours if needed Active metoprolol tartrate (LOPRESSOR) 25 MG tablet Take 25 mg by mouth every 12 (twelve) hours Active Cholecalcifero l (Vitamin D3) 1.25 MG (87507 UT) capsule Take 50,000 Units by mouth [...] Description 04/20/2025 11:20 AM CDT Office Visit [facility] [address] [place] [address] Lizzeth Mohan NP Stage 3a chronic kidney disease (Primary Dx); Type 2 diabetes mellitus with other diabetic kidney complication, not otherwise specified; Secondary hyperparathyroidism of renal origin; Hypertensive chronic kidney disease with stage 1 through stage 4 chronic kidney disease, or unspecified chronic kidney disease 04/12/2025 Orders Only [facility] [address] [place] [address] Lizzeth Mohan NP from Last 3 Months [...] st Contact Info) Description 09/04/2025 3:00 PM MONOTYPE OPERATOR Office Visit [facility] [address] [facility] 1 [place] [address] Lizzeth Mohan NP [address] [facility] 1 [place] [address] Health Maintenance Due Date Last Done Comments Diabetic Foot Exam 01/14/1964 Ophthalmology Exam 01/14/1964 Pneumococcal PPSV23/PCV13 65 + Years / High and Highest Risk (1 of 5 - PCV) 1973 Influenza Vaccine (#1) 2025 3, 05/10/2021, 05/17/2019, Additional history exists Procedures Procedure Name Priority Date/Time Associated Diagnosis Comments PTH, INTACT Routine 04/12/2025 10:15 AM CDT [facility] CKD PROGRAM Routine 04/12/2025 10:15 AM CDT [...] - 04/13/2025 2:10 PM CDT Performed at: [address] [id number] Stripper Machine Operator: Kvng Roca PhD, Phone: [phone] us Lizzeth Mohan ETCHER APPRENTICE PHOTOENGRAVING LAB BLOOD ORDERABLES Final Resu lt Performing Organization Address [facility] Co de Phone Number [facility] 1 * (ABNORMAL) Albumin/Creatinine Ratio, Random, [...] - 04/13/2025 2:10 PM CDT Performed at: [address] [id number] Stripper Machine Operator: Kvng Roca PhD, Phone: [phone] us Lizzeth Mohan NP LAB URINE ORDERABLES Final Resu lt Performing Organization Address [facility] Co de Phone Number [facility] 1 * [facility] CKD Program (04/12/2025 10:15 AM CDT) Interpretation Note [facility] 2 Comment:Supplemental report is available. PDF Image . [facility] 2 04/12/2025 10:1 5 AM CDT 04/11/2025 11:00 PM CDT Narrative [facility] - 04/13/2025 2:10 PM CDT Performed at: [address] [place] [address] Clinical / Digital [address] [place] [id number] Stripper Machine Operator: Shayy Zimmerman MD, Phone: [phone] us Lizzeth Mohan ETCHER APPRENTICE PHOTOENGRAVING LAB BLOOD ORDERABLES Final Resu lt Performing Organization Address [facility] Co de Phone Number [facility] 2 * (ABNORMAL) Microsopic Examination [...] - 04/13/2025 2:10 PM CDT Performed at: [address] [place] [id number] Stripper Machine Operator: Kvng Roca PhD, Phone: [phone] us Lizzeth Mohan ETCHER APPRENTICE PHOTOENGRAVING LAB BLOOD ORDERABLES Final Resu lt Performing Organization Address [facility] Co de Phone Number [facility] 1 * (ABNORMAL) CBC (includes [...] 5 AM CDT 04/11/2025 11:00 PM CDT [facility] - 04/13/2025 2:10 PM CDT Performed at: 01 - [facility] [id number] Stripper Machine Operator: Kvng Roca PhD, Phone: [phone] us Lizzeth Mohan NP LAB BLOOD ORDERABLES [...] 2:10 PM CDT Performed at: 01 - [facility] [id number] Stripper Machine Operator: Kvng Roca PhD, Phone: [phone] us Lizzeth Mohan ETCHER APPRENTICE PHOTOENGRAVING LAB BLOOD ORDERABLES Final Resu lt [facility] 1 * (ABNORMAL) Urinalysis, Routine W/ Reflex Microscopic (04/12/2025 10:15 AM CDT) Pathologist [facility] Specific gravity of Urine 1.019 1.005 - [...] 04/13/2025 2:10 PM CDT Performed at: - [facility] [id number] Stripper Machine Operator: Kvng Roca PhD, Phone: [phone] us Lizzeth Mohan NP LAB URINE ORDERABLES Final Resu lt [facility] 1 from Last 3 Months Insurance MEDICARE [facility] MEDICARE Care Teams Air Bag Curer Relationship Specialty Start Date End Date Allie Sinclair PA [address] [place] [phone] PCP - General Family Medicine 11/08/24
--- NOTE | 2025-05-12 12:18 | ED_ITS ---
HPI - Seizure General Chief Complaint: Seizure Stated Complaint: Pre Seizure? Time Seen by Provider: 05/12/25 10:47 History of Present Illness HPI Narrative: Patient is a 70-year-old female with history of Parkinson's and seizure disorder who presents ER with concerns that she may have a seizure. She had a aura today where she smells metal and then daughter felt she is becoming potentially less responsive and was concerned she may going to a grand mal seizure. She has had her anti seizure medicine today. She is compliant with home meds. No additional complaints. Seizure History: Yes Related Data Home Medications ?Medication ?Instructions ?Recorded ?Confirmed ?Last Taken ?Type acetaminophen 325 mg tablet 650 mg PO Q12H PRN fever o r pain 10/03/24 10/03/24 Unknown History sennosides 8.6 mg tablet (senna) 8.6 mg PO DAILY PRN c onstipation 10/03/24 10/03/24 Unknown History Allergies Allergy/AdvReac Type Severity Reaction Status Date / Time quetiapine (From Seroquel) Allergy Mild Nightmare Verified 05/04/25 05:11 metformin Allergy Unknown Unknown Verified 05/04/25 05:11 aspartame Allergy unknown Verified 05/04/25 05:11 insulin glargine (From Allergy unknown Verified 05/04/25 05:11 Lantus U-100 Insulin) morphine Allergy Unknown Verified 05/04/25 05:11 Review of Systems 2 Review of Systems: All systems reviewed & are unremarkable except as noted in HPI and below ROS unobtainable: Yes other (Patient's daughter helped with history and review of systems.) Constitutional: Constitutional: Reports no additional constitutional complaints Cardiovascular: Cardiovascular: Reports no additional cardiovascular complaints Respiratory: Respiratory: Reports no additional respiratory complaints Neurologic: Reports system reviewed and no additional complaints, except as documented PMF Past Medical History Medical History 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 and increased tone fingers of the left hand History of GI bleed Splenic varices Diabetic nephropathy Meckels diverticulum Duodenal ulcer Vitamin B12 deficiency Vitamin D deficiency CAD (coronary artery disease) Hyperlipidemia Type 2 diabetes mellitus Essential hypertension Seizure disorder GERD (gastroesophageal reflux disease) History of hemorrhagic cerebrovascular accident (CVA) without residual deficits Atrial fibrillation Surgical History Surgical History History of tonsillectomy and adenoidectomy Status post open reduction and internal fixation (ORIF) of fracture Left wrist and hand History of carpal tunnel release Left Family History Family History Sibling Cerebrovascular accident Hypertension Kidney disease Father Bladder cancer Heart disease Hypertension Mother Hypertension Kidney disease Social History Social History Social History: Code status: Full code Power of consumer attorney for healthcare: Claudia Mohan (daughter) Smoking status: Never smoker Second hand tobacco smoke exposure: No Alcohol intake: former Alcohol use details: The patient used to on occasion drink 1 alcoholic beverage a month. Substance use: never Spiritual care concerns: No Exam 2 Narrative: GENERAL: Well-appearing, well-nourished, and in no acute distress. HEAD: Normocephalic, atraumatic. ENT: Mucous membranes moist. CHEST: Clear to auscultation. No respiratory distress. HEART: Regular rate and rhythm. Normal peripheral pulses. ABDOMEN: Soft, nontender, nondistended. EXTREMITIES: Normal range of motion. No edema. SKIN: Warm, dry, no rash. NEURO: Alert and oriented x3. PSYCH: Normal mood and affect. Course Course Emergency Course: Patient resting comfortably. Discussed diagnosis and lab results with her and daughter. Will discharge with cefuroxime. Vital Signs Vital signs: Vital Signs Temperature 98.3 F 05/12/25 10:26 Pulse Rate 70 05/12/25 10:26 Respiratory Rate 18 05/12/25 10:26 Blood Pressure 134/61 05/12/25 10:26 Pulse Oximetry 100 05/12/25 10:26 Oxygen Delivery Room Air 05/12/25 10:26 Temperature 98.3 F 05/12/25 10:26 Pulse Rate 61 05/12/25 12:04 Respiratory Rate 20 05/12/25 12:04 Blood Pressure 114/60 05/12/25 11:30 Pulse Oximetry 96 05/12/25 12:04 Oxygen Delivery Room Air 05/12/25 11:27 MDM - Seizure Differential Diagnosis Differential diagnosis: Likely epileptic seizure and other (Near syncope, UTI, arrhythmia) Lab Data Attestation: I reviewed the patient's lab results. 05/12/25 11:25 05/12/25 11:25 Labs: Lab Results 05/12/25 05/12/25 Range/Units 11:08 11:25 WBC 9.7 (4.5-10.0) K/mm3 RBC 3.98 L (4.2-5.4) M/mm3 Hgb 11.8 L (12.0-15.0) g/dL Hct 37.8 (37.0-47.0) % MCV 95.0 (80-100) fl MCH 29.6 (26-34) pg MCHC 31.2 L (32-36) g/dl RDW 13.2 (11.5-14.5) % Plt Count 254 (150-375) k/mm3 MPV 11.5 H (7.4-10.4) fl Immature Gran % (Auto) 0.4 (0-0.5) % Neut % (Auto) 80.1 H (45.5-73.1) % Lymph % (Auto) 9.5 L (18.3-44.2) % [place] % (Auto) 8.2 (2.6-8.5) % Eos % (Auto) 1.1 (0-4.4) % Baso % (Auto) 0.7 (0.2-1.2) % Lymph # (Auto) 0.93 (0.9-3.2) K/mm3 [place] # (Auto) 0.8 H (0.1-0.6) K/mm3 Eos # (Auto) 0.1 (0-0.3) K/mm3 Baso # (Auto) 0.1 (0.0-0.1) K/mm3 Abs Immat Gran (auto) 0.04 H (0.00-0.031) K/mm3 Absolute Neuts (auto) 7.8 H (1.3-6.7) K/mm3 Absolute Nucleated RBC 0.000 (0.0-0.012) K/mm3 Nucleated RBC % 0.0 (0.0-0.2) % Sodium 140 (137-145) mmol/L Potassium 3.7 (3.4-5.0) mmol/L Chloride 108 H (98-107) mmol/L Carbon Dioxide 24 (22-30) mmol/L Anion Gap 8 (4-12) mmol/L BUN 25 H (7-17) mg/dL Creatinine 1.08 H (0.7-1.0) mg/dL Estim Creat Clear Calc 41 ml/min Estimated GFR 50 L (59 - ) Glucose 144 H (65-110) mg/dL Calcium 10.0 (8.4-10.2) mg/dL Total Bilirubin 0.9 (0.2-1.3) mg/dL AST 33 (14-36) U/L ALT 22 (6-35) U/L Alkaline Phosphatase 51 (38-126) U/L Total Protein 7.3 (6.3-8.2) g/dL Albumin 4.2 (3.5-5.1) g/dL Urine Color Yellow (Yellow) Urine Appearance Cloudy H (Clear) Urine pH 6.0 (5.0-9.0) Ur Specific [place] 1.017 (1.001-1.035) Urine Protein 1+ H (Negative) mg/dL Urine Glucose (UA) Negative (Negative) mg/dL Urine Ketones Negative (Negative) mg/dL Ur Blood (Man) Negative (Negative) Urine Nitrate Positive H (Negative) Urine Bilirubin Negative (Negative) Urine Urobilinogen 1.0 (<2.0) mg/dL Leukocyte Esterase Rfl 2+ H (Negative) DURAN/UL Urine RBC 0-2 (0-2) /hpf Urine WBC >100 H (0-3) /hpf Ur Squamous Epith Cells None seen (Few) /hpf Urine Bacteria 4+ H /hpf Urine Casts 3-5 Discharge Plan Discharge Clinical Impression: UTI (urinary tract infection) Patient Disposition: Home Condition: Stable Instructions: Urinary Tract Infection in Women (ED) Additional Instructions: You should return to the emergency department if you develop severe nausea and vomiting and are unable to keep liquids down, if you develop severe back/flank or stomach pain, or if your symptoms are not clearly improving at home. Patient Language: Irish Prescriptions: New cefuroxime axetil 500 mg tablet 500 mg PO BID Qty: 14 0RF No Action hydrocodone-acetaminophen 5-325 mg tablet 1 tablet PO Q8H PRN (Reason: severe pain (scale score 7-10)) Qty: 9 0RF sennosides [senna] 8.6 mg tablet 8.6 mg PO DAILY PRN (Reason: constipation) acetaminophen 325 mg tablet 650 mg PO Q12H PRN (Reason: fever or pain) atorvastatin 40 mg Tablet 40 mg PO DAILY 30 Days Qty: 30 1RF amlodipine 10 mg Tablet 10 mg PO QAM 30 Days Qty: 30 1RF fluoxetine 10 mg capsule 10 mg PO DAILY 30 Days Qty: 0 1RF aspirin [Children's Aspirin] 81 mg Tablet,Chewable 81 mg PO DAILY@0800 30 Days Qty: 30 1RF metoprolol tartrate 25 mg Tablet 25 mg PO Q12HR 30 Days Qty: 60 1RF fenofibrate 160 mg tablet 160 mg PO DAILY 30 Days Qty: 0 1RF cholecalciferol (vitamin D3) 1,250 mcg (50,000 unit) Capsule 1,000 unit PO DAILY 30 Days Qty: 0 1RF insulin glargine [Basaglar KwikPen U-100 Insulin] 100 unit/mL (3 mL) insulin pen 20 unit subcut QHS 30 Days Qty: 15 1RF levetiracetam [Keppra] 500 mg Tablet 1,000 mg PO Q12HR 30 Days Qty: 30 1RF Tradjenta 5 mg tablet 5 mg PO DAILY 30 Days Qty: 30 1RF lacosamide 100 mg tablet 100 mg PO BID 30 Days Qty: 60 1RF fluoxetine 10 mg tablet 10 mg PO DAILY Qty: 30 1RF lacosamide 100 mg tablet 100 mg PO Q12H 30 Days Qty: 60 1RF ciprofloxacin HCl [Cipro] 500 mg tablet 500 mg PO Q12H 7 Days Qty: 14 0RF Follow-up/Referrals: Yahir,ZURI Kelley [Primary Care Provider, Unknown] - 1 Week
--- NOTE | 2025-05-12 13:19 | PC.NURSE ---
ERP Dr Ruano at bedside discussing antibiotics with pts daughter. Aware of conflict per daughter from donor processor.
== END 2025-05-12 13:29 | disposition home or self-care (01) ==
PROVIDERS: Emergency Provider Emergency Medicine; PCP Physician Assistant
DX: N39.0 Urinary tract infection, site not specified (principal); G20.A1 Parkinson's disease without dyskinesia, without mention of fluctuations; I25.10 Atherosclerotic heart disease of native coronary artery without angina pectoris; I25.2 Old myocardial infarction; E53.8 Deficiency of other specified B group vitamins; I10 Essential (primary) hypertension; E11.21 Type 2 diabetes mellitus with diabetic nephropathy; E78.5 Hyperlipidemia, unspecified; E55.9 Vitamin D deficiency, unspecified; K21.9 Gastro-esophageal reflux disease without esophagitis; I48.91 Unspecified atrial fibrillation; Z86.73 Personal history of transient ischemic attack (TIA), and cerebral infarction without residual deficits; Z79.899 Other long term (current) drug therapy; Z79.82 Long term (current) use of aspirin; Z79.84 Long term (current) use of oral hypoglycemic drugs; Z79.4 Long term (current) use of insulin
CPT/HCPCS: 36415; 80053; 81001; 85025; 87077; 87086; 87186; 99284

== ENCOUNTER 2025-06-09 12:39 | Outpatient (CLI) | payer MEDICARE, MEDICAID, SELFPAY ==
--- NOTE | ~2025-06-09 | MM_ITS ---
EXAMINATION: MM diagnostic carlos a LT w kisha INDICATION: 70-year old female; BI-RADS 0, callback to evaluate left breast asymmetries. COMPARISON: 11/19/2024 through 11/08/2008 TECHNIQUE: Digital breast tomosynthesis True lateral view and spot compression CC and MLO views of Left breast were obtained with computer-aided detection to assist in interpretation of the study. FINDINGS: There are scattered areas of fibroglandular density. The multiple asymmetries seen in the central and inferior medial Left breast on the screening mammogram effaces on additional views, compatible with normal overlapping tissue. Benign-appearing lymph node persists in the lateral posterior depth in the left breast. IMPRESSION: Left breast finding represents superimposition of fibroglandular tissue. No further investigation necessary. RECOMMENDATION: Annual screening mammography in 12 months BI-RADS 2, BENIGN Reviewed, dictated and finalized at location B. CTOR COST IMPRESSION: Left breast finding represents superimposition of fibroglandular tissue. No fur ther investigation necessary. RECOMMENDATION: Annual screening mammography in 12 months BI-RADS 2, BENIGN
--- OUTSIDE RECORDS SUMMARY | 2025-06-09 12:46 | XMS_ITS | Encounter Summary ---
Author Organization [facility] Address [address] [place] [address] Care Team Providers Care Coder Name Role Phone Allie Sinclair PA-C Primary Care Provider Encounter Details Date Type Department Care Team (Late st Contact Info) Description 03/03/2025 Telephone [facility] [place] [address] [facility] Update Information Social History [...] and heating? Not hard at all 11/29/2022 Malag[place] [facility] - Occupational Stress [...] place to sleep or slept in a correction (including now)? No 11/29/2022 Comments No Sex and Gender Information Value Date Recorded Sex Assigned at Not on file Legal Sex Female 6:40 AM ZMT OPERATOR Gender Identity Not on file Sexual Orientation Not on file documented as of this encounter Functional Status * Is person deaf or have serious hearing difficulty? Answer Date of Assessment Author Yes 12/04/2022 10:17 AM CDT Mayo Lord RN * Is person blind or have serious difficulty seeing? Answer Date of Assessment Author No 12/04/2022 10:17 AM ERENDIRAT Mayo Lord RN * Does person have serious difficulty [...] Entry Date Author No 12/04/2022 10:17 AM CDT Mayo Lord, RN documented in this encounter Miscellaneous Notes * Telephone Encounter - Radha Wright - 03/03/2025 8:18 AM CDT Current Provider: Vale Britton or Kwaku Reason for Call: Good morning, I have spoke to Dr. Lewis about this patient now, Please schedule with [facility] with the next available new patient appointment Tanisha Collazo CARBON CAPTURE POWER PLANT MANAGER Or Phoebe KEATING Or Grace Perry [employer]BON CAPTURE POWER PLANT MANAGER Called back and got vm, left a message to call us back to schedule. Patient Call Back Number: [phone] documented in this encounter Plan of Treatment Not on file documented as of this encounter Visit Diagnoses Not on filedocumented in this encounter Care Teams Coder Relationship Specialty Start Date End Date Allie Sinclair PA-C [address] [place] [id number] PCP - General 07/08/22 documented as of this encounter
--- OUTSIDE RECORDS SUMMARY | 2025-06-09 12:46 | XMS_ITS | Clinical Summary ---
Author Organization [facility] Address [facility] [place] [address] Care Team Providers Care Rnfa Name Role Phone Allie Sinclair PA-C Primary Care Provider [phone]- [phone] Allergies Active Allergy Reactions Criticality Noted Date Comments Aspartame Diarrhea 07/26/2022 Morphine Other (see comment) High 09/10/2023 Pt had bad experience: Acute drug intoxication - called EMS, almost had to complete temporary HD - went to [facility] Quetiapine Hallucinations 03/02/2025 Topiramate Hallucinations 03/02/2025 Medications [...] Date Confusion 05/26/2024 Acute metabolic encephalopathy 03/15/2024 [place]-neck deformity of left finger(s) 02/25/2024 Obstructive sleep [...] Type Department Care Team Description 04/04/2025 [facility]phone [phone] Deandra Mcghee PA Medication from Last 3 Months Immunizations Immunization Administration Dates Next Due COVID-19 Vaccine (Generic) 09/27/2020,09/06/2020 Influenza (Generic) 05/06/2016,04/20/2015,2013 Influenza Adult (Generic) 05/04/2023,,05/17/2019,05/11/2017,/08/2015,06/25/2015 Pneumococcal (Pneumovax 23) 05/17/2019 Tdap (Generic) 04/01/2022 [...] = 0.6 oz pur e alcohol) socially [facility] Utilities Answer Date Recorded In the past 12 months has th e electric, gas, oil, or water company [...] any time in the past 12 m [facility], were you homeless or living in a alf (including now)? No 05/27/2024 Comments No Sex and Gender Information Value Date Recorded Sex Assigned at Female 09/20/2024 9:45 AM UNDERGROUND MINE SUPERINTENDENT Legal Sex Female 6:56 PM CDT Gender Identity Not on file Sexual Orientation Not on file Last Filed Vital Signs Vital Sign Reading Time Taken Comments Blood Pressure 114/64 03/02/2025 10:33 AM CDT Pulse 53 03/02/2025 10:33 AM CDT Temperature 36.4 C (97.6 F) 03/02/2025 10:33 AM CDT Respiratory Rate 16 08/29/2024 10:39 AM UNDERGROUND MINE SUPERINTENDENT Oxygen Saturation 98% 03/02/2025 10:33 AM CDT Inhaled Oxygen Concentration - - Weight 79.4 kg (175 lb) 10/11/2024 10:28 AM CDT Height 170.2 cm (5' 7) 03/02/2025 10:33 AM CDT Body Mass Index 27.41 09/20/2024 9:56 AM UNDERGROUND MINE SUPERINTENDENT Plan of Treatment Upcoming Encounters Date Type Department Care Team (Late st Contact Info) Description 07/10/2025 10:20 AM UNDERGROUND MINE SUPERINTENDENT Office Visit [facility] Multispecialty Care - [address], [address] [place] [address] Justine Can MD [address] [place] [id number] Health Maintenance Due Date Last Done Comments [...] 2025 05/04/2023, 05/10/2021, 05/17/2019, Additional history exists ASCVD LDL 06/07/2025 06/07/2024 Lipid Panel 06/07/2025 06/07/2024 DTaP, Tdap and Td Vaccines (2 - Td or Tdap) 04/01/2032 04/01/2022 Hepatitis C Completed 07/24/2022 PHQ-2 (Physician [place]) Completed 10/11/2024 Hepatitis A Vaccines Aged Out [...] this topic Medical Devices Implanted Type Area Extension Course Counselor Device Identifier Shelf Expiration Date Model / Serial / Lot Plate Synthes 2.4 Va-Lcp Vlr Dist Radius 6h Hd/3h Shaft Right - [id number] Implanted:Qty: 1 on 11/24/2017 by Godwin Aguirre MD at [facility] Plate Right: Arm SYNTHES 11/24/2017 [id number] / / NA Screw Synthes 2.4 Locking Stardrive 14mm - [id number] Implanted:Qty: 2 on 11/24/2017 by Godwin Aguirre MD at [facility] Screw Right: Arm SYNTHES 11/24/2017 [id number] / / NA Screw Synthes 2.4 Locking Stardrive 16mm - [id number] Implanted:Qty: 1 on 11/24/2017 by Godwin Aguirre MD at [facility] Screw Right: Arm SYNTHES 11/24/2017 [id number] / / NA Screw Synthes 2.4 Locking Stardrive 18mm - [id number] Implanted:Qty: 1 on 11/24/2017 by Godwin Aguirre MD at [facility] Screw Right: Arm SYNTHES 11/24/2017 [id number] / / NA Screw Synthes 2.4 Locking Stardrive 20mm - [id number] Implanted:Qty: 1 on 11/24/2017 by Godwin Agurire MD at [facility] Screw Right: Arm SYNTHES 11/24/2017 [id number] / / NA Screw Synthes 2.4 Locking Stardrive 18mm - [id number] Implanted:Qty: 1 on 11/24/2017 by Godwin Aguirre MD at [facility] Screw Right: Arm SYNTHES 11/24/2017 [id number] / / NA Screw Synthes 2.7 Cortical Self Tap 14mm - [id number] Implanted:Qty: 1 on 11/24/2017 by Godwin Aguirre MD at [facility] Right: Arm SYNTHES 11/24/2017 [id number] / / NA Screw Synthes 2.7 Cortical Self Tap 12mm - [id number] Implanted:Qty: 2 on 11/24/2017 by Godwin Aguirre MD at [facility] Right: Arm SYNTHES 11/24/2017 [id number] / / NA Explanted Type Area Extension Course Counselor Device Identifier Shelf Expiration Date Model / Serial / Lot Wire Synthes 1.5mm Jenn 150mm W/Trocar Point - [id number] Implanted:Qty: 1 Explanted:Qty: 1 on 11/24/2017 by Godwin Aguirre MD at [facility] Right: Arm SYNTHES 11/24/2017 [id number] / [...] Documents on File Type Date Recorded Patient Apartment Property Manager Expl anation Advance Directives and Livin g Will 06/01/2024 3:14 PM * Full Code (Latest Code Status on File) Date Activated Date Inactivated Comments 05/26/2024 3:19 PM 05/31/2024 8:06 PM * Full Code Date Activated Date Inactivated Comments 03/15/2024 8:38 AM 03/19/2024 4:15 PM Healthcare Agents on File Name Relationship Healthcare Agent [facility] Communication Claudia GUARDADO Marques Daughter Health Care Agent Estrella (1st Alt) Flach Relative First Stephen [facility], [facility]–1983 Care Agent Care Teams Rnfa Relationship Specialty Start Date End Date Allie Sinclair PA-C PCP - General PHYSICIAN CRA OFFICER 01/29/23
--- OUTSIDE RECORDS SUMMARY | 2025-06-09 12:46 | XMS_ITS | Encounter Summary ---
Author Organization [facility] Address [facility] [place] [address] Care Team Providers Care Edging Machine Catcher Name Role Phone Allie Sinclair PA-C Primary Care Provider +1- [phone] Encounter Details Date Type Department Care Team (Late st Contact Info) Description 01/05/2025 [facility] [address] Dalton Griffin MA Social History Tobacco Use Types Packs/Day Years Used Date Smoking Tobacco: Never Passive Smoke Exposure: Never Smokeless Tobacco: Never Alcohol Use Standard Drinks/Week Comments Not Currently 0 (1 standard drink = 0.6 oz pur e alcohol) socially [facility] Utilities Answer Date Recorded In the past 12 months has [employer], gas, oil, or water [employer] threatened to shut off services in your [...] any time in the past 12 m [facility], were you homeless or living in a [place] health care facility (including now)? No 05/27/2024 Comments No Sex and Gender Information Value Date Recorded Sex Assigned at Female 09/20/2024 9:45 AM RADIO INTERFERENCE INVESTIGATOR Legal Sex Female 6:56 PM CDT Gender [...] st Contact Info) Description 07/10/2025 10:20 AM RADIO INTERFERENCE INVESTIGATOR Office Visit [facility] Medical [facility] Multispecialty Care - [address], [address] [place] [address] Justine Can MD [address] [place] [address] documented as of this encounter Procedures Procedure [...] Final Result * CBC, MANUAL DIFF (06/07/2024) Pathologist [facility] WBC 7.5 HGB 12.5 HCT 38.5 PLT 230 us Default History Genericprovider LABORATORY Final Result * HEMOGLOBIN, GLYCOSYLATED (06/07/2024) Pathologist [facility] HGB A1C 6.1 % us Default History Genericprovider LABORATORY Final Result * THYROID STIM HORMONE TSH (06/07/2024) TSH 3.408 us Default History Genericprovider LABORATORY Final Result documented in this encounter Visit Diagnoses Not on filedocumented in this encounter Care Teams Edging Machine Catcher Relationship Specialty Start Date End Date Allie Sinclair PA-C PCP - General PHYSICIAN TIMBER SPOTTER 01/29/23 documented as of this encounter
--- OUTSIDE RECORDS SUMMARY | 2025-06-09 12:46 | XMS_ITS | Data Portability ---
Author Organization ID - [facility] OFFICE Address [address] [place] [address] Care Team Providers Care Missile Inspector Name Role Phone ELIAS FIGUEROA Primary Care [...] By Organization Details Last Modified Time 10/14/2022 40786 Exercise advised Low cholesterol diet advised Low sodium diet advised. [email or web address] Not available 10/14/2022 13:23:36 11/04/2022 42506 Low cholesterol diet advised Low sodium diet [...] Address Organization Details Recorded Time Essential hypertension 19052405 Active 2022 Denny Vargas null, [place] - [facility] 3 18:31:18 Hyperlipidemia 11216253 Active 2022 Denny [place] [facility] 18:31:38 Diabetes mellitus 63150956 Active 2022 D[place] [facility] 18:31:53 Tuberculosis 38062382 Active 2022 D[place] [facility] 3 18:32:07 Vitamin D deficiency 92890355 Active 2022 Baldwin Mesto [place], [place] - [facility] 18:32:23 Hypomagnesemia 599954448 Active 2022 [place] [facility] 18:32:33 Hypokalemia 07600250 Active 2022 [place] [facility] 18:32:43 Depressive disorder 10169945 Active 2022 [place] [facility] 18:32:50 Migraine 81759218 Active 2022 [place] [facility] 3 18:33:03 Carpal tunnel syndrome 29264677 Active 2022 [place] [facility] 18:33:16 Allergic rhinitis 29355245 Active 2022 [place] [facility] 18:33:36 Gallstone 857890109 Active 2022 [place] [facility] 18:33:55 Renal failure syndrome 85871381 Active 2022 [place] [facility] 18:34:09 Acute urinary tract infection 542144085 Active 2022 [place] [facility] 18:34:23 Contact dermatitis 74775933 Active 2022 [place] [facility] 18:34:38 Arthritis 8731925 Active 2022 [place] [facility] 18:34:45 Swelling of knee joint 682805235 Active 2022 [place] [facility] 18:35:00 Pain of shoulder region 06624546 Active 2022 [place] [facility] 18:35:16 Neck pain 06762210 Active 2022 Baldwin M[place] - [facility] 18:35:26 Plantar fasciitis 764572342 Active 20[facility] 18:35:43 Seizure 49950843 Active 2022 [facility] 18:35:56 Obstructive sleep apnea syndrome 67218226 Active 2022 Baldwinkenji Vargas [facility] 18:36:03 History of anemia vitamin B12 deficient 210540878 Active 2022 Baldwinkenji Vargas [facility] 18:36:37 Diverticulosis of colon 964890381 Active 2022 Baldwinkenji Vargas [facility] 18:36:57 Problem Notes None recorded. Procedures Surgical History Date Name Laterality Status Provider Name and Address Organization Details Recorded Time arthroscopic procedure completed [facility] 10/08/2022 18:40:15 tonsillectomy completed [facility] 10/08/2022 18:40:23 ligation of fallopian tube completed [facility] 10/08/2022 18:40:33 Brain aneurysm repr simple completed [facility] 10/08/2022 18:40:53 Imaging Results None recorded. Procedure [...] Available TRUEplus Pen Needle 32 gauge x USE DIRECTED WITH INSULIN ONCE A DAY active Not Available Not Available No t Available Nayzilam 5 mg/spray (0.1 mL) nasal spray active Not Available Not Available Not Available Vitals Date Recorded Body height Body mass index (BMI) Body weight Heart rate Respiratory rate Oxygen saturation Systolic And Diastolic Provider Name and Address Organization Details Last Updated DateTime 3 170.18 cm 34.8 kg/m2 572430. 51 g 75 /min 16 /min 94 % 132/84 mm[Hg] Gilberto Carreon [facility] 3 13:13:32 Date Recorded Body height Body mass index (BMI) Body weight Heart rate Oxygen saturation Systolic And Diastolic Provider Name and Address Organization Details Last Updated DateTime 3 170.18 cm 33.9 kg/m2 27483.1 1 g 85 /min 99 % 130/80 mm[Hg] Zuly Alexander [facility] 3 12:05:28 Social History None [...] ICD10 Code Diagnosis IMO Codes Diagnosis Note [id number] Juwan Newton MD [facility] OFFICE [address] [place] [address] 10/14/2022 12:43:23 10/14/2022 13:26:45 Essential hypertension 54807225 I10 with fair control Hyperlipidemia 58139973 E78.5 Needs to keep LDL less than 70, and HDL more than 40 Will get lipid profile results from PCP Electrocar diogram abnormal 757658406 R94.31 Lexiscan Myoview stress test, pt can not walk. Has known coronary artery disease, with atypical symptoms now Chronic di astolic heart failure 601095103 I50.32 Obtain echo to evaluate for structural /functiona l disease. Edema of l ower extremity 931909840 R60.0 Obtain echo to evaluate for structural /functiona l disease. Pre-surger y evaluation 127030109 Z01.818 Lexiscan Myoview stress test, pt can not walk. Has known coronary artery disease, with atypical symptoms now, the patient is not able to walk on treadmill 18555 Juwan Newton MD [facility] OFFICE [address] [place] [address] 11/04/2022 11:12:20 11/04/2022 12:35:12 Dyspnea on exertion 88230281 R06.09 US, echocardio gramLV chamber size is [...] well visualized . Atypical chest pain 1025 51627 R07.89 she has a positive stress test The patient will be scheduled for left heart catheteriz ation, with coronary angiogram, and possible PTCA/Stent . The procedure was discussed with the patient, and risks, benefits, and alternativ e options were explained. The patient was given informatio n about heart catheteriz ation and interventi onal procedures . The patient agrees to proceed. Dyslipidemia 369144051 E 78.5 continue with lipitor 40 mg daily Obstructiv e sleep apnea syndrome 17910359 G47.33 she has sleep study previously but it was mild per patient Essential hypertension 36617006 I10 with fair control Pre-surger y evaluation 743294126 Z01.818 with positive stress testThe patient will be scheduled for left heart catheteriz ation, with coronary angiogram, and possible PTCA/Stent . The procedure was discussed with the patient, and risks, benefits, and alternativ e options were explained. The patient was given informatio n about heart catheteriz ation and interventi onal procedures . The patient agrees to proceed. Paroxysmal atrial fibrillation 747972469 I48.0 in sinus rhythm todayshe is not on blood thinner nor aspirin Health Concerns Section Related Observation LastModified by Organization Detai ls LastModified Time None Recorded Concern Status LastModified by Organization Details LastModified Time None Recorded Advance Directives Directive None Recorded Payers Insurance Date Sequence Insurance Name Policy Number Policy Shepard Covered Member ID Shepard Member ID Guarantor Name 11/03/2022 1 MEDICARE-ID (MEDICARE) Kerline Martin [id number] Kerline Martin 11/03/2022 2 MEDICAID-ID: [facility] Kerline Martin [id number] Kerline Martin Notes Date Note Type Note [...] somnolence and AM headache. Juwan Newton MD [address] [place], [address], [facility] - [facility] 10/14/2022 [...] somnolence and AM headache. BOB del rio [place] - [facility] 11/04/2022 12:47:11 OBGyn Episode No OBEpisode recorded.
--- OUTSIDE RECORDS SUMMARY | 2025-06-09 12:46 | XMS_ITS | Clinical Summary ---
Author Organization [facility] Address [address] [place] [address] Phone Care Team Providers Care Gallery Or Museum Attendant Name Role Phone Marcelino Gore MD Primary Care Provider [phone] Allergies No known active allergies Medications atorvastatin (LIPITOR) 40 MG tablet Onee tablet at bedtime 0 6 Active acetaminophen (TYLENOL) 325 MG tablet Take 2 tablets by mouth every 12 (twelve) hours if needed Active metoprolol tartrate (LOPRESSOR) 25 MG tablet Take 25 mg by mouth every 12 (twelve) hours Active Cholecalciferol (Vitamin D3) 1.25 MG (41240 UT) capsule Take 50,000 Units by mouth [...] mouth 1 (one) time each day Active Active Problems Problem Noted Date Diagnosed [...] Resolved Date Candidiasis of skin 11/09/2024 04/13/20 Other retention of urine 05/04/2020 Encounters Date Type Department Care Team Description 06/06/2025 Orders Only [facility] [address] [place] [address] Camilo Rice MD 05/16/2025 Telephone [facility] [address] [place] [address] Lizzeth Mohan NP 04/20/2025 11:20 AM CDT Office Visit [facility] [address] [place] [address] Lizzeth Mohan NP Stage 3a chronic kidney disease (Primary Dx); Type 2 diabetes mellitus with other diabetic kidney complication, not otherwise specified; Secondary hyperparathyroidism of renal origin; Hypertensive chronic kidney disease with stage 1 through stage 4 chronic kidney disease, or unspecified chronic kidney disease 04/12/2025 Orders Only [facility] [address] [place] [address] Lizzeth Mohan NP from Last 3 Months [...] on file Legal Sex Female 7:35 AM RUST Gender Identity Not on file Sexual Orientation [...] Upcoming Encounters Date Type Department Care Team ([facility] st Contact Info) Description 09/04/2025 3:00 PM WOOL FLEECE GRADER Office Visit [facility] [address] [facility] [address] [place] [address] Lizzeth Mohan, LAB ASSISTANT [address] [address] Health Maintenance Due Date Last Done Comments Diabetic Foot Exam 01/14/1964 Ophthalmology Exam 01/14/1964 Pneumococcal PPSV23/PCV13 65 + Years / High and Highest Risk (1 of 5 - PCV) 1973 Influenza Vaccine (#1) 2025 3, 05/10/2021, 05/17/2019, Additional history exists Procedures Procedure Name Priority Date/Time Associated Diagnosis Comments URINALYSIS, COMPLETE W/RFL CULTURE (REFL) Routine 06/06/2025 1:21 PM WOOL FLEECE GRADER PTH, INTACT Routine 04/12/2025 10:15 AM CDT LITHAPPLEGATEK CKD PROGRAM Routine 04/12/2025 10:15 AM CDT ALBUMIN / CREATININE RATIO, RANDOM, URINE Routine 04/12/2025 10:15 AM CDT RENAL FUNCTION PANEL Routine 04/12/2025 10:15 AM CDT MICROSCOPIC EXAMINATION Routine 04/12/2025 10:15 AM CDT URINALYSIS ROUTINE W/ REFLEX MICROSCOPIC Routine 04/12/2025 10:15 AM CDT CBC (INCLUDES DIFFERENTIAL/PLATELE TS) Routine 04/12/2025 10:15 AM CDT from Last 3 Months Results * URINALYSIS, COMPLETE$W/RFL CULTURE (REFL) (06/06/2025 1:21 PM WOOL FLEECE GRADER) Specific gravity of Urine 1.019 1.005 - 1.030 [facility] 1 pH of Urine 6.0 5.0 - 7.5 [facility] 1 Color of Urine Yellow Yellow [facility] 1 Appearance of Urine Clear Clear [facility] 1 Leukocyte esterase, Urine Negative Negative [facility] 1 Protein, Urine Negative Negative/Tra ce [facility] 1 Glucose, Urine Negative Negative [facility] 1 Ketones, Urine Negative Negative [facility] 1 Hemoglobin, Urine Negative Negative [facility] 1 Bilirubin, total, Urine Negative Negative [facility] 1 Urobilinogen, Urine 1.0 0.2 - 1.0 mg/dL [facility] 1 Nitrite, Urine Negative Negative [facility] 1 Microscopic Examination Comment [facility] 1 Comment:Microscopic not thomas cated and not performed. Urinalysis Reflex Comment [facility] 1 Comment:This specimen will n ot reflex to a Urine Culture. 06/06/2025 1:21 PM WOOL FLEECE GRADER 06/05/2025 11:00 PM WOOL FLEECE GRADER Narrative [facility] - 06/07/2025 2:10 PM WOOL FLEECE GRADER Performed at: 01 - [facility] [id number] Weapons Mechanic: Kvng Roca PhD, Phone: [phone] us Camilo Rice MD LAB URINE ORDERABLES Final Resul t [facility] 1 * PTH, Intact (04/12/2025 10:15 AM CDT) PTH, Intact, Serum/Plasma 17 15 - 65 pg/mL [facility] 1 04/12/2025 10:1 5 AM CDT 04/11/2025 11:00 PM CDT Narrative [facility] - 04/13/2025 2:10 PM CDT Performed at: [address] [place] [id number] Weapons Mechanic: Kvng Roca PhD, Phone: [phone] us Lizzeth Mohan LAB ASSISTANT LAB BLOOD ORDERABLES Final Resu lt [facility] 1 * (ABNORMAL) Albumin/Creatinine Ratio, Random, [...] - 04/13/2025 2:10 PM CDT Performed at: [address] [place] [id number] Weapons Mechanic: Kvng Roca PhD, Phone: [phone] us Lizzeth Mohan LAB ASSISTANT LAB URINE ORDERABLES Final Resu lt [facility] 1 * [facility]oLink CKD Program (04/12/2025 10:15 AM CDT) Interpretation Note [facility] 2 Comment:Supplemental report is available. PDF Image . [facility] 2 04/12/2025 10:1 5 AM CDT 04/11/2025 11:00 PM CDT Narrative [facility] - 04/13/2025 2:10 PM CDT Performed at: [facility] [address] [place] [id number] Weapons Mechanic: Shayy Zimmerman MD, Phone: [phone] us Lizzeth Mohan LAB ASSISTANT LAB BLOOD ORDERABLES Final Resu lt [facility] 2 * (ABNORMAL) Microsopic Examination (04/12/2025 10:15 [...] - 04/13/2025 2:10 PM CDT Performed at: [address] [id number] Weapons Mechanic: Kvng Roca PhD, Phone: [phone] us Lizzeth Mohan LAB ASSISTANT LAB BLOOD ORDERABLES Final Resu lt Performing Organization Address City/[facility]/ZIP Co de Phone Number [facility] 1 * (ABNORMAL) CBC (includes Differential/Platelets) [...] 2:10 PM CDT Performed at: 01 - [facility] [id number] Weapons Mechanic: Kvng Roca PhD, Phone: [phone] us Lizzeth Mohan NP LAB BLOOD ORDERABLES Final Resu lt [facility] 1 * (ABNORMAL) Renal Function Panel (RFP) (04/12/2025 10:15 AM CDT) [facility] Glucose, Serum/Plasma 145(H) 70 - 99 mg/dL [...] 5 AM CDT 04/11/2025 11:00 PM CDT [facility] - 04/13/2025 2:10 PM CDT Performed at: [address] [place] [id number] Weapons Mechanic: Kvng Roca PhD, Phone: [phone] us Lizzeth Mohan NP LAB BLOOD ORDERABLES Final Resu lt [facility] 1 * (ABNORMAL) Urinalysis, Routine W/ Reflex Microscopic (04/12/2025 10:15 AM CDT) Pathologist [facility] Specific gravity of Urine 1.019 1.005 - [...] 2:10 PM CDT Performed at: 01 - [facility] [address] [id number] Weapons Mechanic: Kvng Roca PhD, Phone: [phone] us Lizzeth Mohan LAB ASSISTANT LAB URINE ORDERABLES Final Resu lt [facility] 1 from Last 3 Months Insurance MEDICARE FOR[facility]LY [facility] MEDICARE [place] ANGUIANO [id number] Care Teams Gallery Or Museum Attendant Relationship Specialty Start Date End Date Marcelino Gore MD [address] [place] [address] PCP - General 06/08/25
--- OUTSIDE RECORDS SUMMARY | 2025-06-09 12:46 | XMS_ITS | Clinical Summary ---
Author Organization [facility] Address [address] [place] [address] Care Team Providers Care Hand Suture Winder Name Role Phone Allie Sinclair PA-C Primary Care Provider Source Comments [facility],non-owned Affiliates and Associated Physician Practices is amultiple site organization consisting of ambulatory clinics and hospital sitesin [place], [place], [place] and [place]. This disclosure is being madepursuant to the Care Everywhere program and may not contain all information available regarding this patient. Last updated 18.[facility] Allergies Active Allergy Reactions Criticality Noted Date [...] 09/10/2023 midazolam (Nayzilam) 5 MG/0.1ML nasal spray Kincaid 0.1 mL into the nose as needed for Seizures Lasting longer than 5 minutes. Can administer second dose in other nostril if seizure continues after 10 minutes. 4 Each 5 09/04/19 23 Active Additional Information Patient not taking.Reported on 11/07/2022 Cholecalciferol 1.25 MG (40001 UT) cholecalciferol (vitamin D3) 1,250 mcg (50,000 unit) capsule TAKE 1 CAPSULE BY MOUTH EVERY WEEK WITH FOOD Active saline nasal spray ([place]; Baby [place]) 0.65 % nasal spray Kincaid 1 (one) spray to 2 (two) sprays [...] 07/07/20 23 Active Blood Glucose Monitoring Suppl ([facility] Verio Flex System) w/Device KIT USE TO CHECK BLOOD SUGAR THREE TIMES DAILY 05/04/20 23 Active amLODIPine (Norvasc) 10 MG tablet Take 1 (one) tablet by mouth every morning 07/21/19 24 Active fenofibrate (Lofibra) 160 MG tablet TAKE 1 TABLET BY MOUTH EVERY DAY WITH MEALS 08/17/19 24 Active Xradiauch Verio test strip USE TO CHECK BLOOD SUGAR TWICE DAILY 05/05/20 23 Active Lancets (AskerTOUCH DELICA PLUS 33G EXTRA FINE LANCET) USE [...] heating? Not hard at all 11/29/2022 [facility] [place] [place] [facility] Occupat ional Health - Occupational Stress [...] place to sleep or slept in a residential (including now)? No 11/29/2022 Comments No Sex and Gender Information Value Date Recorded Sex Assigned at Not on file Legal Sex Female 6:40 AM MDM DEVELOPER Gender Identity Not on file Sexual Orientation Not on file Last Filed Vital Signs Vital Sign Reading Time Taken Comments Blood Pressure 123/68 09/17/2023 3:50 PM MDM DEVELOPER Pulse 68 09/17/2023 3:50 PM MDM DEVELOPER Temperature 36.5 C (97.7 F) 09/17/2023 3:27 PM MDM DEVELOPER Respiratory Rate 13 09/17/2023 3:50 PM MDM DEVELOPER Oxygen Saturation 98% 09/17/2023 3:50 PM MDM DEVELOPER Inhaled Oxygen Concentration 25% 07/23/2022 1 0:00 AM MDM DEVELOPER Weight 90.9 kg (200 lb 6.4 oz) 09/17/2023 12:34 PM MDM DEVELOPER Height 170.2 cm (5' 7) 09/17/2023 12:34 PM MDM DEVELOPER Body Mass Index 31.39 09/17/2023 12:34 PM MDM DEVELOPER Plan of Treatment Health Maintenance Due Date [...] 50+ (1 of 2 - PCV) 1973 Respiratory Syncytial Virus (RSV) Vaccine Pt: or over 60 yrs (1 - Risk 50-74 years 1-dose series) 01/14/2004 ZOSTER VACCINE (1 of 2) 01/14/2004 DIABETES RETINOPATHY SCREENING 07/12/2022 DIABETES-FOOT EXAM WITH MONOFILAMENT 07/12/2022 DIABETES-HGB A1C 02/26/2023 11/26/2022, 07/08/2022 DIABETES-SERUM CREATININE 12/05/20232022, 12/03/2022, 12/02/2022, Additional history exists DEPRESSION SCREENING 07/20/2024 DIABETES - URINE PROTEIN SCREENING 07/20/2024 COVID-19 VACCINE ( - season) 2025 INFLUENZA VACCINE (#1) 2025 , 05/10/2021, 05/17/2019, Additional history exists HEPATITIS C SCREENING Completed [...] this topic Medical Devices Implanted Type Area Green Chain Offbearer Device Identifier Shelf Expiration Date Model / Serial / Lot Parth Bone Void 5cc Dbm Allosync Ptty Implanted:Qty: 2 on 11/25/2022 by Robbie Mccann MD at [facility] Left: Humerus [employer] 04/23/2026 / / Screw 3.5mm 32mm T15 Slf-Tap Lck Tpr Implanted:Qty: 1 on 11/25/2022 by Robbie Mccann MD at [facility] Left: Humerus [employer] [id number] / / Screw 3.5mm 36mm T15 Slf-Tap Lck Tpr Implanted:Qty: 1 on 11/25/2022 by Robbie Mccann MD at [facility] Left: Humerus [employer] [id number] / / Screw 3.5mm 38mm T15 Slf-Tap Lck Tpr Implanted:Qty: 1 on 11/25/2022 by Robbie Mccann MD at [facility] Left: Humerus [employer] [id number] / / Screw 3.5mm 42mm T15 Lck Slf-Tap Tip Tpr Implanted:Qty: 1 on 11/25/2022 by Robbie Mccann MD at [facility] Left: Humerus [employer] [id number] / / Screw 3.5mm 46mm T15 Slf-Tap Lck Tpr Implanted:Qty: 1 on 11/25/2022 by Robbie Mccann MD at [facility] Left: Humerus [employer] [id number] / / Screw 3.5mm 48mm T15 Slf-Tap Lck Tpr Implanted:Qty: 1 on 11/25/2022 by Robbie Mccann MD at [facility] Left: Humerus [employer] [id number] / / Screw 3.5mm 46mm T15 Lck Mldir Nonster Implanted:Qty: 1 on 11/25/2022 by Robbie Mccann MD at [facility] Left: Humerus [employer] [id number] / / Graft Bone Infs Rhbmp-2 Bvn Clgn Lg 8ml Implanted:Qty: 1 on 11/25/2022 by Robbie Mccann MD at [facility] Left: Humerus [employer] 07/20/2024 [id number] / / [id number] Graft Bone Almtr Dbm Canc 5ml Algrf Ptty - [id number] Implanted:Qty: 1 on 11/25/2022 by Robbie Mccann MD at [facility] Left: Humerus [employer] 09/22/2023 [id number] / [id number] / Alps Proximal Humerus Low Plate Left 11 H, 190mm Implanted:Qty: 1 on 11/25/2022 by Robbie Mccann MD at [facility] Left: Humerus [id number] / / Screw 3.5mm 20mm T15 Lopro Nonlock Implanted:Qty: 3 on 11/25/2022 by Robbie Mccann MD at [facility] Left: Humerus [employer] [id number] / / Screw 3.5mm 22mm T15 Nonlock Lopro Implanted:Qty: 1 on 11/25/2022 by Robbie Mccann MD at [facility] Left: Humerus [employer] [id number] / / Screw 3.5mm 24mm T15 Nonlock Lopro Implanted:Qty: 1 on 11/25/2022 by Robbie Mccann MD at [facility] Left: Humerus [employer] [id number] / / Screw 3.5mm 32mm T15 Nonlock Lopro Implanted:Qty: 1 on 11/25/2022 by Robbie Mccann MD at [facility] Left: Humerus [employer] [id number] / / Explanted Type Area Green Chain Offbearer Device Identifier Shelf Expiration Date Model / Serial / Lot Screw 3.5mm 36mm T15 Slf-Tap Lck Tpr Explanted:Qty: 1 on 11/25/2022 by Robbie Mccann MD at [facility] Left: Humerus [employer] [id number] / / Screw 3.5mm 48mm T15 Slf-Tap Lck Tpr Explanted:Qty: 2 on 11/25/2022 by Robbie Mccann MD at [facility] Left: Humerus [employer] [id number] / / Wire K 2mm 152mm Top Tray Ss Fx Explanted:Qty: 4 on 11/25/2022 by Robbie Mccann MD at [facility] Left: Humerus [employer] [id number] / / Screw 3.5mm 24mm T15 Nonlock Lopro Explanted:Qty: 1 on 11/25/2022 by Robbie Mccann MD at [facility] Left: Humerus [employer] [id number] / / Procedures Procedure Name Priority Date/Time Associated Diagnosis Comments RENAL FUNCTION PANEL AM Draw 12/04/2022 2:46 AM CDT HEMOGLOBIN A1C Routine 11/26/2022 1:18 AM CDT Other fracture of shaft of left humerus, subsequent encounter for fracture with malunion HEPATITIS SCREEN ACUTE AM Draw 07/24/2022 4:12 AM MDM DEVELOPER from Last 3 Months or Most Recently Relevant to Health Maintenance Results * (ABNORMAL) RENAL FUNCTION PANEL (12/04/2022 2:46 AM CDT) BUN 7 7 - 26 mg/dL 12/04/2022 4:[address] [facility] Creatinine 0.98(H) 0.56 - 0.96 mg/dL 12/04/2022 4:03 AM [facility] Sodium 149(H) 136 - 145 mmol/L 12/04/2022 4:03 AM [facility] Potassium 4.4 3.5 - 4.5 mmol/L 12/04/2022 4:03 AM [facility] Chloride 112(H) 98 - 107 mmol/L 12/04/2022 4:03 AM [facility] CO2 18(L) 22 - 29 mmol/L 12/04/2022 4:[address] [facility] Glucose 155(H) 70 - 115 mg/dL 12/04/2022 4:[address] [facility] Albumin 2.6(L) 3.4 - 5.0 g/dL 12/04/2022 4:[address] [facility] Calcium 9.0 8.4 - 10.2 mg/dL 12/04/2022 4:03 AM [facility] Phosphorus 3.7 2.9 - 5.1 mg/dL 12/04/2022 4:03 AM [facility] Anion Gap 23(H) 8 - 18 12/04/2022 4:[address] [facility] BUN/Creatinine Ratio 7 7 - 23 12/04/2022 4:03 AM [facility] Osmolality Calculated 309(H) 270 - 300 mOsm/kg 12/04/2022 4:03 AM [facility] eGFR by CKD-EPI 63(L) >=90 mL/min/1.7 3 m2 12/04/2022 4:03 AM T [facility] Blood BLOOD SPECIMEN / Unknown Lab Venipuncture / Unknown 12/04/2022 2:46 AM CDT 12/04/2022 3:24 AM CDT Blaine Campo MD LAB - CHEMISTRY ORDERABLES Final Result Performing Organization Address City/[facility]/ZIP Co de Phone Number [facility] [address] [place] [address], [facility] [phone] * (ABNORMAL) HEMOGLOBIN A1C (11/26/2022 1:18 AM CDT) Hemoglobin A1c 9.1(H) <=5.6 % 11/26/2022 1:26 PM [facility] Estimated Average Glucose 214 mg/dL 11/26/2022 1:26 PM [facility] Comment: HbA1c Interpretation: Normal : < 5.7% Pre-diabetes: 5.7-6.4% Diabetes: Equal to or greater than 6.5% Test results diagnostic of diabetes should be repeated for confirmation. Treatment target values recommended by ADA and other clinical organizations should be used to evaluate metabolic control in patients. Reference: [place] [employer] Association, Standards of Care in Diabetes [...] LAB - CHEMISTRY ORDERABLES Mary l Result [facility] [address] [place] [address], [facility] [phone] * HEPATITIS SCREEN ACUTE (07/24/2022 4:12 AM MDM DEVELOPER) Hepatitis A Virus Antibody IgM Non-react bartolome Non-reac tive 07/24/2022 5:11 AM MDM DEVELOPER [facility] Hepatitis B Virus Surface Antigen Non-react bartolome Non-reac tive 07/24/2022 5:11 AM MDM DEVELOPER [facility] Hepatitis B Core Virus Antibody IgM Non-react bartolome Non-reac tive 07/24/2022 5:11 AM MDM DEVELOPER [facility] Hepatitis C Antibody Non-react bartolome Non-reac tive 07/24/2022 5:11 AM [facility] Comment:Hepatitis C Antibody screen indicates no serologic evidence of past or current infection with Hepatitis C Virus. Patients with unexplained liver disease who are immunocompromised or suspected of having acute Hepatitis C infection may benefit from Nucleic Acid Test (CHA) for Hepatitis C Viral RNA to confirm Hepatitis C status. Blood BLOOD SPECIMEN / Unknown Venipuncture / Unknown 07/24/2022 4:12 AM MDM DEVELOPER 07/24/2022 4:37 AM MDM DEVELOPER Sarabjit Gutierrez MD LAB - CHEMISTRY ORDERAB LES Final Result [address] [address], [facility] [phone] from Last 3 Months or Most Recently Relevant to Health Maintenance Insurance MEDICARE MEDICAID - [place] MEDICAID - [facility] MEDICAID - [place] MED[place]ARE Advance Directives Documents on File Type Date Recorded Patient Parking Enforcement Officer Expl anation Adv Directive/Living Will/POA 08/01/2022 11:56 AM * Full Code (Latest Code Status on File) Date Activated Date Inactivated Comments 11/28/2022 10:29 PM 12/04/2022 11:55 AM * Full Code Date Activated Date Inactivated Comments 11/25/2022 12:22 PM 11/27/2022 1:35 PM * Full Code Date Activated Date Inactivated Comments 07/07/2022 9:28 PM 08/05/2022 4:23 PM Healthcare Agents on File Name Relationship Healthcare Agent [facility] p Communication Claudia Martin Daughter Health Care Agent Care Teams Hand Suture Winder Relationship Specialty Start Date End Date Allie Sinclair PA-C [address] [place] [phone] PCP - General 07/08/22
--- OUTSIDE RECORDS SUMMARY | 2025-06-09 12:46 | XMS_ITS | Encounter Summary ---
Author Organization [facility] Address [address] [place] [phone] Phone Care Team Providers Care Control Room Tender Name Role Phone Marcelino Gore MD Primary Care Provider [phone] Reason for Visit * Reason Comments Med Refill Encounter Details Date Type Department Care Team ([facility] Contact Info) Description 08/21/2024 Refill [facility] [address] [place], [place] [phone] Lizzeth Mohan NP [address] [phone] Social History Tobacco Use Types Packs/Day Years [...] Encounters Date Type Department Care Team (Late Contact Info) Description 09/04/2025 3:00 PM RN REGISTRY Office Visit [facility] [address] [facility] [place], [place] [phone] Lizzeth Mohan NP [address] [phone] documented as of this encounter Visit Diagnoses Not on filedocumented in this encounter Care Teams Control Room Tender Relationship Specialty Start Date End Date Marcelino Gore MD [address] [place] [address] PCP - General 06/08/25 documented as of this encounter
== END 2025-06-09 12:40 | disposition home or self-care (01) ==
LOC: ANHFOHIMG 12:44
PROVIDERS: PCP Physician Assistant; Visit Provider Physician Assistant
DX: R92.8 Other abnormal and inconclusive findings on diagnostic imaging of breast (principal)
CPT/HCPCS: 77061; 77065; G0279